=== PATIENT | female | born 1985 | race Caucasian/White ===

== ENCOUNTER 2016-02-21 14:30 | Inpatient (IN) | payer OTHER ==
[~2016-02-21] VITALS: Ht 172.7 cm; Wt 98.9 kg
[~2016-02-21 14:30] MED LIST: BACL10TA PO; CYM/30 PO; DICL1GEL34 EXT; DULO60CA44 PO; FLUC150T PO; FLUT0.15 NAE; FRS/40 PO; GABA800T PO; GLYC1TAB19 PO; IMT100 PO; LACT10SO17 PO; LEVO125T4 PO; NITR-5 PO; NITR1CAP16 PO; ONDA4TAB46 SL; PANT40TA PO; TAMS0.4C38 PO; TAPE50TA5 PO; TOPI100T20 PO; [UNRECOGNIZED DRUG - CODE] PO
[2016-02-21] MEDS ORDERED: ONDANSETRON INJ 2 MG/ML 2 ML VIAL IV STA (15:03)
[2016-02-21] MEDS ORDERED: SODIUM CHLORIDE 0.9% 1000ML 1,000 ML IV STA (15:03)
--- NOTE | 2016-02-21 15:30 | DIAGNOSTIC IMAGING REPORT ---
CHEST ONE VIEW PORTABLE CLINICAL HISTORY: Abdominal pain COMPARISON STUDY: 02/06/2016 FINDINGS: The cardiac and mediastinal contours are normal. There is no evidence of focal pulmonary consolidation. There is no evidence of failure. No pleural effusions are visualized.[ IMPRESSION: No active disease in the chest. Electronically signed by: Kapil Greenwood M.D. 02/21/2016 3:29 PM
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
[2016-02-21 16:03] LABS: BASO % 0.7 %; BASO ABS # 0.05 K/uL (0-0.2); COMPLETE YES; EOS % 0.6 %; HEMATOCRIT 41.2 % (37-47); IG% 0.1 %; LYMPH % 25.6 %; LYMPH ABS # 1.79 K/uL (1.2-3.4); MEAN CELL VOLUME 85.1 fL (80-100); MEAN CORPUSCULAR HEMOGLOBIN 29.3 pg (25-34); MEAN CORPUSCULAR HGB CONC 34.5 g/dl (32-36); MONO % 6.3 %; NEUT % 66.7 %; PLATELET COUNT 282 K/uL (130-400); RED BLOOD COUNT 4.84 M/uL (4.2-5.4); WHITE BLOOD COUNT 6.98 K/uL (4.8-10.8)
[2016-02-21 16:12] LABS: PARTIAL THROMBOPLASTIN RATIO 1.2; PROTHROMBIN TIME (PATIENT) 10.4 SECONDS (9.0-12.0)
[2016-02-21 16:24] LABS: URINE APPEARANCE CLEAR (CLEAR); URINE BILIRUBIN NEG (NEG); URINE COLOR YELLOW; URINE NITRITE NEG (NEG); URINE SPECIFIC GRAVITY 1.015 (1.000-1.030); UROBILINOGEN NEG (NEG); ZZURINE CULT IF INDIC CATH NO
[2016-02-21 16:27] LABS: MANUAL MICROSCOPIC REQUIRED? NO; REVIEW REQ? NO
[2016-02-21 16:28] LABS: PREG INTERNAL NEGATIVE QC NEG CLEAR BACKGROUND; PREG INTERNAL POSITIVE QC POS CONTROL LINE
[2016-02-21 16:31] LABS: ALKALINE PHOSPHATASE 67 U/L (45-117); ALT/SGPT 35 U/L (12-78); AST/SGOT 18 U/L (15-37); BLOOD UREA NITROGEN 9 mg/dl (7-18); BUN/CREATININE RATIO 14.1 (10-20); CARBON DIOXIDE 23 mmol/L (21-32); CHLORIDE 104 mmol/L (98-107); CKMB/CK RATIO 1.2 (0-3.0); CREATININE 0.61 mg/dl (0.60-1.20); GLUCOSE 87 mg/dl (70-99); POTASSIUM 3.7 mmol/L (3.5-5.1); SODIUM 139 mmol/L (136-145)
[2016-02-21] MEDS: ACETAMINOPHEN 500 MG TAB PO STA ×2 (16:52→16:55)
[2016-02-21 16:56] LABS: BENZODIAZEPINE, URINE NEG (NEG); COCAINE,URINE NEG (NEG); PHENCYCLIDINE, URINE NEG (NEG)
[2016-02-21 17:50] VITALS: O2SAT 100
[2016-02-21] MEDS ORDERED: ALUMINUM/MAGNESIUM SUSP 30 ML UDC PO PRN (20:00)
[2016-02-21] MEDS ORDERED: hydrOXYzine HCL 25 MG TAB PO PRN (20:00)
[2016-02-21] MEDS ORDERED: SODIUM CHLORIDE 0.65% NA SOLN 45 ML (OCEAN) PRN (20:00)
[2016-02-21] MEDS ORDERED: BISMUTH SUBSALICYLATE PER ML OMNICELL CHARGE PO PRN (20:00)
[2016-02-21] MEDS ORDERED: SUMATRIPTAN SUCC TAB 100 MG TAB PO PRN (20:00)
[2016-02-21] MEDS ORDERED: FUROSEMIDE 40 MG TAB PO PRN (20:00)
[2016-02-21] MEDS ORDERED: BENZTROPINE MESYLATE 0.5 MG TAB PO PRN (20:15)
[2016-02-21] MEDS ORDERED: LACTULOSE SYRUP 10 GM/15 ML BTL 473 ML PO PRN (20:26)
[2016-02-21 20:29] VITALS: BP 141/88; PULSE 89; TEMP 36.9; Ht 172.7 cm; Wt 98.9 kg
[2016-02-21] MEDS: DICLOFENAC SOD 1% GEL 100 GM TUBE EXT SCH (21:43)
[2016-02-21] MEDS: GLYCOPYRROLATE 1 MG TAB PO SCH (21:44)
[2016-02-21] MEDS: GABAPENTIN 800 MG TAB PO SCH (21:44)
[2016-02-21] MEDS: PANTOprazole SOD 40 MG TAB PO SCH (21:44)
[2016-02-21] MEDS: NITROFURANTOIN MONOHYDRATE 100 MG CAP PO SCH (21:44)
[2016-02-21] MEDS: TOPIRAMATE 100 MG TAB PO SCH (21:44)
[2016-02-21] MEDS: BACLOFEN 10 MG TAB PO SCH (21:44)
[2016-02-21] MEDS: TAPENTADOL HCL 50 MG TAB PO SCH (21:44)
[2016-02-22] MEDS: hydrOXYzine HCL 25 MG TAB PO PRN ×2 (01:09→01:43)
[2016-02-22 07:00] VITALS: BP_SYST 104; BP_SYST 105; BP_DIAS 67; BP_DIAS 75; PULSE 82; PULSE 86; TEMP 37
[2016-02-22] MEDS: LEVOTHYROXINE 125 MCG TAB PO SCH (07:14)
[2016-02-22] MEDS: PANTOprazole SOD 40 MG TAB PO SCH ×2 (07:15→21:09)
[2016-02-22] MEDS: DULOXETINE HCL 60 MG CAP PO SCH (07:15)
[2016-02-22] MEDS: TAMSULOSIN HCL 0.4 MG CAP PO SCH (07:15)
[2016-02-22] MEDS: GLYCOPYRROLATE 1 MG TAB PO SCH ×3 (07:15→21:10)
[2016-02-22] MEDS: BACLOFEN 10 MG TAB PO SCH ×3 (07:15→21:09)
[2016-02-22] MEDS: NITROFURANTOIN MONOHYDRATE 100 MG CAP PO SCH ×2 (07:15→21:09)
[2016-02-22] MEDS: GABAPENTIN 800 MG TAB PO SCH ×3 (07:15→21:09)
[2016-02-22] MEDS: TOPIRAMATE 100 MG TAB PO SCH ×2 (07:16→21:11)
[2016-02-22] MEDS: TAPENTADOL HCL 50 MG TAB PO SCH (07:17)
[2016-02-22] MEDS: FLUTICASONE PROPIONATE NA SPR 16 GM BTL NAE SCH (07:18)
[2016-02-22] MEDS: DICLOFENAC SOD 1% GEL 100 GM TUBE EXT SCH ×3 (07:18→21:07)
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
[2016-02-22] MEDS: HALOPERIDOL 5 MG TAB PO SCH (21:08)
[2016-02-22] MEDS: QUETIAPINE FUMARATE 25 MG TAB PO SCH (21:11)
[2016-02-23 07:12] VITALS: BP_SYST 100; BP_SYST 93; BP_DIAS 61; BP_DIAS 70; PULSE 60; PULSE 74; TEMP 36.7
[2016-02-23] MEDS: LEVOTHYROXINE 125 MCG TAB PO SCH (08:59)
[2016-02-23] MEDS: FLUTICASONE PROPIONATE NA SPR 16 GM BTL NAE SCH (09:00)
[2016-02-23] MEDS: DULOXETINE HCL 60 MG CAP PO SCH (09:00)
[2016-02-23] MEDS: DICLOFENAC SOD 1% GEL 100 GM TUBE EXT SCH ×3 (09:00→21:36)
[2016-02-23] MEDS: TAMSULOSIN HCL 0.4 MG CAP PO SCH (09:00)
[2016-02-23] MEDS: GLYCOPYRROLATE 1 MG TAB PO SCH ×3 (09:02→21:37)
[2016-02-23] MEDS: GABAPENTIN 800 MG TAB PO SCH ×3 (09:02→21:37)
[2016-02-23] MEDS: TOPIRAMATE 100 MG TAB PO SCH ×2 (09:02→21:37)
[2016-02-23] MEDS: HALOPERIDOL 5 MG TAB PO SCH ×2 (09:02→21:36)
[2016-02-23] MEDS: NITROFURANTOIN MONOHYDRATE 100 MG CAP PO SCH ×2 (09:02→21:37)
[2016-02-23] MEDS: PANTOprazole SOD 40 MG TAB PO SCH ×2 (09:02→21:36)
[2016-02-23] MEDS: BACLOFEN 10 MG TAB PO SCH ×3 (09:02→21:36)
--- NOTE | 2016-02-23 12:14 | Psychiatric Progress Notes ---
Progress Note Date of Service Feb 23, 2016. Interval History Joyce Almendarez is a 31 year old woman who has been hospitalized here many times previously - most recently November and December 2015. She was admitted on a voluntary basis with reports of auditory hallucinations of her father wanting her to come to [facility] with him. Chief Complaint "I need Nucynta for my back pain". Subjective Patient was seen & assessed interval progress reviewed with treatment team: Zhanna knocked on the door and asked for pain medication, specifically Nucynta. Explained that we are unable to provide this medication and asked her to try nonpharmacologic treatments for her pain. She did agree to try heat. She continues to endorse suicidality and that if she were not in the hospital she would attempt to kill herself. She was unable to explain how she would do this. She denies that she is hear voices today like she was before she came to the hospital and "signed in." She is poorly able to engage in conversation about her treatment and repeatedly asks for pain medication. Review of Systems Musculoskeletal: + problem reported (back pain) Sleep Information Total Hours of Sleep: 6.00 Meal Information Percent of Breakfast Consumed: 100 Percent of Lunch Consumed: 75 Percent of Dinner Consumed: 50 Mental Status Exam During interview pt is: cooperative Appearance: disheveled Eye contact is: fair Motor behavior is: steady gait & station Speech: other (soft and slow) Affect: blunted Mood is: depressed (3/10) Thought process: goal directed (on obtaining pain meds) Thought content: preoccupation Homicidal thoughts are: present Hallucinations: denies auditory, denies visual Cognition: memory grossly intact Intelligence estimated to be: average Insight: severely impaired Judgement: severely impaired Summary of Past History Patient supposed sees Dr. Hoffman for psychiatry but she can not tell me when she was last there. She does not currently have a therapist. 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 Most recent psychiatric hospitalization at [facility] in late January. She was discharged medically from [facility] on February 09 to [facility] for a mental health admission for aduitory hallucintaions of her father telling her not to eat, drink and to kill herself. Date of discharge is unknown but she did present to [facility] ER on February 14 for UTI. Impression IMPRESSION: A 31-year-old woman now admitted with depression with psychotic features, specifically auditory hallucinations of her father's voice telling her to come to [facility]. She has been having these delusions and hallucinations probably the better part of the last year and has clearly demonstrated that she is unable to function living independently. She is willing to receive assistance to try to find alternate housing arrangements and says that her rn case mgr is working on that and so we will need to be in touch with her to find out what has been done. Her sister sounds as if she is completely burned out at this point having told her sister not call her during this hospitalization. The patient has not been able to get any outpatient appointments and according to the prescription drug monitoring database, her prescriptions are not being managed by anybody in and she admits to obtain her medications from [facility]. At this point, I am going to discontinue her Nucynta and recommend she not be given any further pain medications that there is no one to manage it and she has demonstrated that she has abused these or overuse them as demonstrated by multiple ER visits in which she looks overmedicated. During her last hospitalization, we had her license revoked due to concerns that she was unsafe to drive. She is currently asking to see Dr. Morrison in order to have that restated which we do not recommend at this time. I will reorder her medications as per the discharge list from [facility] with the exception of the narcotics, which I will discontinue. She says she cannot afford to buy prescriptions. She clearly needs to be in a supervised living, although finding a situation immediately may be nearly impossible. We will inquire whether or not there is room at the local [facility] and work through her rn case mgr to make that referral. At this time, the patient requires inpatient mental health treatment due to the severity of her symptoms and her inability to function outside of a structured environment. Plan (1) Major depressive disorder with psychotic features A. Continue Cymbalta 90 mg daily. B. Continue Haldol 5 mg b.i.d. C. Q. 15 minute checks for safety. D. Reality orientation. E. Encourage participation in group and individual counseling. F. Attempt to establish a meeting with Radha swan to enlist her support finding alternate housing placement. G. Contact outpatient rn case mgr has been involved with her and possibly looking for alternate housing arrangements. Meeting scheduled 02/23 at 8 am. H. Coordinate care with Dr. Hoffman's office whom she says is her outpatient psychiatrist, although she has not seen him lately. (2) Chronic pain associated with significant psychosocial dysfunction A. Discontinue Nucynta as the patient has no one to follow this and inability to get any appointments. B. She has an outpatient appointment with [facility] pain management on March 14 which we hope that she will keep as that may be the person to manage her reports of pain, although it is unlikely she will get there without significant support. C. Encourage heat and ice p.r.n. D. Encourage walking and gentle exercising. (3) Hypothyroidism A. Labs within normal limits. B. Continue home dose of Synthroid. (4) GERD (gastroesophageal reflux disease) A. Continue home dose of Protonix. Discharge / Aftercare Planning Primary Care Physician: Name: Dr Burns at [facility] Psychiatrist: Name: Dr Hoffman Therapist: Name: pt did not follow up last time [employer] Drag Operator: Name: BRUNILDA Strauss Visit Code E&M Code: 66732 Risk Factors Assessment : Yes /single/: Yes Access to guns: No Health problems: Yes Mental Health Diagnoses: Yes Substance use disorders: Yes Family history of suicide: No Previous psychiatric stay: Yes Hopelessness: Yes Data Vital Signs Last 24 Hrs: Date Time Temp Pulse Resp B/P Pulse Ox O2 Delivery O2 Flow Rate FiO2 02/23/16 07:12 36.7 60 16 93/61 74 100/70 Meds Administered Last 24 Hrs: Meds Administered (Past 24Hrs) Medications (Trade) Dose Ordered Sig/Lisbet Route Start Time Stop Time Status Last Admin Dose Admin Sodium Chloride (Nss 1000ml) 1,000 ml @ 999 mls/hr Q1H1M STAT IV 02/21/16 15:03 02/21/16 16:03 DC 02/21/16 15:53 999 MLS/HR Ondansetron HCl (Zofran Inj) 4 mg NOW STAT IV 02/21/16 15:03 02/21/16 15:05 DC 02/21/16 15:53 4 MG Hydroxyzine HCl (Vistaril Tab) 50 mg HSZ PRN PO 02/21/16 20:00 03/22/16 19:59 02/22/16 01:43 50 MG Baclofen (Lioresal Tab) 10 mg TID PO 02/21/16 21:00 03/22/16 20:59 02/23/16 09:02 10 MG Diclofenac Sodium (Voltaren 1% Top Gel) 1 appln TID EXT 02/21/16 21:00 03/22/16 20:59 02/23/16 09:00 1 APPLN Duloxetine HCl (Cymbalta Cap) 120 mg DAILY PO 02/22/16 09:00 03/23/16 08:59 02/23/16 09:00 120 MG Fluticasone Propionate (Flonase Nasal [place]) 2 sprays DAILY JUSTINO 02/22/16 09:00 03/23/16 08:59 02/23/16 09:00 2 SPRAYS Gabapentin (Neurontin Tab) 800 mg TID PO 02/21/16 21:00 03/22/16 20:59 02/23/16 09:02 800 MG Glycopyrrolate (Robinul Tab) 1 mg TID PO 02/21/16 22:00 03/22/16 21:59 02/23/16 09:02 1 MG Levothyroxine Sodium (Synthroid Tab) 125 mcg DAILYBB PO 02/22/16 08:00 03/23/16 07:59 02/23/16 08:59 125 MCG Nitrofurantoin Macrocrystals (Macrobid Cap) 100 mg BID PO 02/21/16 22:00 03/02/16 21:59 02/23/16 09:02 100 MG Pantoprazole Sodium (Protonix Tab) 40 mg BID PO 02/21/16 21:00 03/22/16 20:59 02/23/16 09:02 40 MG Tamsulosin HCl (Flomax Cap) 0.8 mg DAILY PO 02/22/16 09:00 03/23/16 08:59 02/23/16 09:00 0.8 MG Tapentadol (Nucynta Tab) 50 mg Q12 PO 02/21/16 21:00 02/22/16 14:19 DC 02/22/16 07:17 50 MG Topiramate (Topamax Tab) 100 mg BID PO 02/21/16 22:00 03/22/16 21:59 02/23/16 09:02 100 MG Haloperidol (Haldol Tab) 5 mg BID PO 02/22/16 22:00 03/23/16 21:59 02/23/16 09:02 5 MG Quetiapine Fumarate (seroQUEL TAB) 50 mg HS PO 02/22/16 22:00 03/23/16 21:59 02/22/16 21:11 50 MG
[2016-02-23] MEDS: QUETIAPINE FUMARATE 25 MG TAB PO SCH (21:37)
[2016-02-24 07:02] VITALS: BP_SYST 111; BP_SYST 116; BP_DIAS 70; BP_DIAS 71; PULSE 68; PULSE 78; TEMP 36.8
[2016-02-24] MEDS: FLUTICASONE PROPIONATE NA SPR 16 GM BTL NAE SCH (08:28)
[2016-02-24] MEDS: LEVOTHYROXINE 125 MCG TAB PO SCH (08:28)
[2016-02-24] MEDS: NITROFURANTOIN MONOHYDRATE 100 MG CAP PO SCH ×2 (08:29→21:52)
[2016-02-24] MEDS: TAMSULOSIN HCL 0.4 MG CAP PO SCH (08:29)
[2016-02-24] MEDS: GABAPENTIN 800 MG TAB PO SCH ×3 (08:29→21:51)
[2016-02-24] MEDS: BACLOFEN 10 MG TAB PO SCH ×3 (08:29→21:52)
[2016-02-24] MEDS: DULOXETINE HCL 60 MG CAP PO SCH (08:29)
[2016-02-24] MEDS: GLYCOPYRROLATE 1 MG TAB PO SCH ×3 (08:30→21:51)
[2016-02-24] MEDS: PANTOprazole SOD 40 MG TAB PO SCH ×2 (08:30→21:51)
[2016-02-24] MEDS: TOPIRAMATE 100 MG TAB PO SCH ×2 (08:30→21:51)
[2016-02-24] MEDS: HALOPERIDOL 5 MG TAB PO SCH ×2 (08:33→21:51)
[2016-02-24] MEDS: DICLOFENAC SOD 1% GEL 100 GM TUBE EXT SCH ×3 (08:35→21:50)
--- NOTE | 2016-02-24 12:38 | Psychiatric Progress Notes ---
Progress Note Date of Service Feb 24, 2016. Interval History Joyce Almendarez is a 31 year old woman who has been hospitalized here many times previously - most recently November and December 2015. She was admitted on a voluntary basis with reports of auditory hallucinations of her father wanting [facility]. Chief Complaint "I can't go back to living by myself". Subjective Patient was seen & assessed interval progress reviewed with Treatment Team. She initially complained of back pain as I pointed out she wasn't attending group but was readily redirectible off of it. No new issues overnight, SW working to set up meeting with medical case manager and sister. Has been sleeping a lot , not interacting much with staff/copatients so likely underreporting delusions. She states anand have resolved with restarting her medication. Endorses depression. Review of Systems Psych: denies symptoms other than stated above Constitutional: pain as above Cardiovascular: denied GI: denied Neurologic: no specific complaint other than would like to see Dr. Prince gomez Remainder of 10 body systems also reviewed and denied other than noted above. Sleep Information Total Hours of Sleep: 9.00 Meal Information Percent of Breakfast Consumed: 100 Percent of Lunch Consumed: 100 Percent of Dinner Consumed: 0 Mental Status Exam During interview pt is: cooperative Appearance: appropriately groomed Eye contact is: fair Motor behavior is: steady gait & station, no abnormal motor movements Speech: other (soft and slow) Affect: blunted Mood is: depressed (3/10) Thought process: goal directed Thought content: preoccupation Suicidal thought are: denied Homicidal thoughts are: denied Hallucinations: denies auditory, denies visual Cognition: other (poor memory) Intelligence estimated to be: average Insight: impaired Judgement: impaired Summary of Past History Most recent psychiatric hospitalization at [facility] in late January. She was discharged medically from [facility] on February 09 to [facility] for a mental health admission for aduitory hallucintaions of her father telling her not to eat, drink and to kill herself. Date of discharge is unknown but she did present to [facility] ER on February 14 for UTI. Impression IMPRESSION as per admit note: A 31-year-old woman now admitted with depression with psychotic features, specifically auditory hallucinations of her father's voice telling [facility] to [facility]. She has been having these delusions and hallucinations probably the better part of the last year and has clearly demonstrated that she is unable to function living independently. She is willing to receive assistance to try to find alternate housing arrangements and says that her medical case manager is working on that and so we will need to be in touch with her to find out what has been done. Her sister sounds as if she is completely burned out at this point having told her sister not call her during this hospitalization. The patient has not been able to get any outpatient appointments and according to the prescription drug monitoring database, her prescriptions are not being managed by anybody in and she admits to obtain her medications from [facility]. At this point, I am going to discontinue her Nucynta and recommend she not be given any further pain medications that there is no one to manage it and she has demonstrated that she has abused these or overuse them as demonstrated by multiple ER visits in which she looks overmedicated. During her last hospitalization, we had her license revoked due to concerns that she was unsafe to drive. She is currently asking to see Dr. Morrison in order to have that restated which we do not recommend at this time. I will reorder her medications as per the discharge list from [facility] with the exception of the narcotics, which I will discontinue. She says she cannot afford to buy prescriptions. She clearly needs to be in a supervised living, although finding a situation immediately may be nearly impossible. We will inquire whether or not there is room at the local [facility] and work through her medical case manager to make that referral. At this time, the patient requires inpatient mental health treatment due to the severity of her symptoms and her inability to function outside of a structured environment. Plan (1) Major depressive disorder with psychotic features A. Continue Cymbalta 90 mg daily. B. Continue Haldol 5 mg b.i.d. C. Q. 15 minute checks for safety. D. Reality orientation. E. Encourage participation in group and individual counseling. F. Attempt to establish a meeting with Radha swan to enlist her support finding alternate housing placement. G. Contact outpatient medical case manager has been involved with her and possibly looking for alternate housing arrangements. Meeting scheduled 02/23 at 8 am. H. Coordinate care with Dr. Hoffman's office whom she says is her outpatient psychiatrist, although she has not seen him lately. 02/24/16: patient's psychosis is again improved with restart of Haldol, patient is agreeable to long acting injectable as recognizes med non-compliance has contributed to multiple admissions. Will order 100 mg Haldol IM today with plan to taper oral Haldol over next week Patient is also agreeable to nursing home referral. (2) Chronic pain associated with significant psychosocial dysfunction A. Discontinue Nucynta as the patient has no one to follow this and inability to get any appointments. B. She has an outpatient appointment with [facility] pain management on March 14 which we hope that she will keep as that may be the person to manage her reports of pain, although it is unlikely she will get there without significant support. C. Encourage heat and ice p.r.n. D. Encourage walking and gentle exercising. (3) Hypothyroidism A. Labs within normal limits. B. Continue home dose of Synthroid. (4) GERD (gastroesophageal reflux disease) A. Continue home dose of Protonix. Discharge / Aftercare Planning Primary Care Physician: Name: Dr Burns at [facility] Psychiatrist: Name: Dr Hoffman Therapist: Name: pt did not follow up last time Labor Delivery Rn: Name: BRUNILDA Strauss Visit Code E&M Code: 88197 Risk Factors Assessment : Yes /single/: Yes Access to guns: No Health problems: Yes Mental Health Diagnoses: Yes Substance use disorders: Yes Family history of suicide: No Previous psychiatric stay: Yes Hopelessness: Yes Data Vital Signs Last 24 Hrs: Date Time Temp Pulse Resp B/P Pulse Ox O2 Delivery O2 Flow Rate FiO2 02/24/16 07:02 36.8 68 16 116/70 78 111/71 Meds Administered Last 24 Hrs: Meds Administered (Past 24Hrs) Medications (Trade) Dose Ordered Sig/Lisbet Route Start Time Stop Time Status Last Admin Dose Admin Haloperidol (Haldol Tab) 5 mg BID PO 02/22/16 22:00 03/23/16 21:59 02/24/16 08:33 5 MG Quetiapine Fumarate (seroQUEL TAB) 50 mg HS PO 02/22/16 22:00 03/23/16 21:59 02/23/16 21:37 50 MG
[2016-02-24] MEDS ORDERED: HALOPERIDOL DECANOATE INJ 50 MG/ML VIAL IM ONE (13:15)
--- NOTE | 2016-02-24 13:26 | Psych Management Progress Note ---
Psychiatry Miscellaneous Date of Service: Feb 24, 2016. I have cared for patient sporadically over the course of mutliple hospital stays and her symptoms clearly respond to Haldol and it is generally well tolerated at 5 mg BID, Cogentin can be provided prn if any return of EPS during switch over, many of past symptoms more likely related to polypharm and resolving AMS than just side effects of Haldol. Patient has a history of repeatedly changing her mind re: med/changes depending on her pain level and seems most clinically appropriate to attempt conversion to IM while amenable. Any EPS would also impact speed of PO taper.
[2016-02-24] MEDS: QUETIAPINE FUMARATE 25 MG TAB PO SCH (21:51)
[2016-02-25 06:49] VITALS: BP_SYST 102; BP_SYST 104; BP_DIAS 69; BP_DIAS 71; PULSE 62; PULSE 93; TEMP 36.4
[2016-02-25] MEDS: LEVOTHYROXINE 125 MCG TAB PO SCH (08:27)
[2016-02-25] MEDS: DICLOFENAC SOD 1% GEL 100 GM TUBE EXT SCH ×3 (08:28→22:01)
[2016-02-25] MEDS: DULOXETINE HCL 60 MG CAP PO SCH (08:28)
[2016-02-25] MEDS: BACLOFEN 10 MG TAB PO SCH ×3 (08:29→21:58)
[2016-02-25] MEDS: TAMSULOSIN HCL 0.4 MG CAP PO SCH (08:29)
[2016-02-25] MEDS: TOPIRAMATE 100 MG TAB PO SCH ×2 (08:29→21:59)
[2016-02-25] MEDS: GLYCOPYRROLATE 1 MG TAB PO SCH ×3 (08:29→21:59)
[2016-02-25] MEDS: GABAPENTIN 800 MG TAB PO SCH ×3 (08:29→21:59)
[2016-02-25] MEDS: NITROFURANTOIN MONOHYDRATE 100 MG CAP PO SCH ×2 (08:29→21:59)
[2016-02-25] MEDS: PANTOprazole SOD 40 MG TAB PO SCH ×2 (08:29→21:59)
[2016-02-25] MEDS: HALOPERIDOL 5 MG TAB PO SCH ×2 (08:35→21:58)
[2016-02-25] MEDS: FLUTICASONE PROPIONATE NA SPR 16 GM BTL NAE SCH (08:40)
--- NOTE | 2016-02-25 13:06 | Psychiatric Progress Notes ---
Progress Note Date of Service Feb 25, 2016. Interval History Joyce Almendarez is a 31 year old woman who has been hospitalized here many times previously - most recently November and December 2015. She was admitted on a voluntary basis with reports of auditory hallucinations of her father wanting her to come to [facility] with him. Chief Complaint "I still hear my dad's voice". Subjective Patient was seen & assessed interval progress reviewed with nursing. Patient hasn't been reporting anand to staff and hasn't expressed delusions but when asked directly this am she does state that he still says he wants her to . She c/o depression, no active SI on unit but ongoing hopelessness due to pain and inability to care for self outside of the hospital. Repeatedly asks to resume Nucynta which was held on admission as historically med seeking and no clear outpatient provider. She tolerated Haldol decanoate. She did require assistance of nursing yesterday to cath for 800 cc. She denies symptoms that would suggest urinary retention today. Review of Systems pain as above, fatigue, inability to sit for groups due to pain but no evidence EPS/akathisia. Sleep Information Total Hours of Sleep: 7.00 Meal Information Percent of Breakfast Consumed: 100 Percent of Lunch Consumed: 100 Percent of Dinner Consumed: 100 Mental Status Exam During interview pt is: cooperative Appearance: appropriately groomed Eye contact is: fair Motor behavior is: steady gait & station, no abnormal motor movements Speech: other (soft and slow) Affect: blunted Mood is: depressed Thought process: goal directed Thought content: preoccupation Suicidal thought are: denied Homicidal thoughts are: denied Hallucinations: auditory, denies visual, other (did not appear to be responding to internal stimuli) Cognition: other (poor memory) Intelligence estimated to be: average Insight: impaired Judgement: impaired Summary of Past History Most recent psychiatric hospitalization at [facility] in late January. She was discharged medically from [facility] on February 09 to [facility] for a mental health admission for aduitory hallucintaions of her father telling her not to eat, drink and to kill herself. Date of discharge is unknown but she did present to [facility] ER on February 14 for UTI. Impression IMPRESSION as per admit note: A 31-year-old woman now admitted with depression with psychotic features, specifically auditory hallucinations of her father's voice telling her to come to [facility]. She has been having these delusions and hallucinations probably the better part of the last year and has clearly demonstrated that she is unable to function living independently. She is willing to receive assistance to try to find alternate housing arrangements and says that her case management assistant is working on that and so we will need to be in touch with her to find out what has been done. Her sister sounds as if she is completely burned out at this point having told her sister not call her during this hospitalization. The patient has not been able to get any outpatient appointments and according to the prescription drug monitoring database, her prescriptions are not being managed by anybody in and she admits to obtain her medications from [facility]. At this point, I am going to discontinue her Nucynta and recommend she not be given any further pain medications that there is no one to manage it and she has demonstrated that she has abused these or overuse them as demonstrated by multiple ER visits in which she looks overmedicated. During her last hospitalization, we had her license revoked due to concerns that she was unsafe to drive. She is currently asking to see Dr. Morrison in order to have that restated which we do not recommend at this time. I will reorder her medications as per the discharge list from [facility] with the exception of the narcotics, which I will discontinue. She says she cannot afford to buy prescriptions. She clearly needs to be in a supervised living, although finding a situation immediately may be nearly impossible. We will inquire whether or not there is room at the local [facility] and work through her case management assistant to make that referral. At this time, the patient requires inpatient mental health treatment due to the severity of her symptoms and her inability to function outside of a structured environment. Plan (1) Major depressive disorder with psychotic features A. Continue Cymbalta 90 mg daily. B. Continue Haldol 5 mg b.i.d. C. Q. 15 minute checks for safety. D. Reality orientation. E. Encourage participation in group and individual counseling. F. Attempt to establish a meeting with Radha swan to enlist her support finding alternate housing placement. G. Contact outpatient case management assistant has been involved with her and possibly looking for alternate housing arrangements. Meeting scheduled 02/23 at 8 am. H. Coordinate care with Dr. Hoffman's office whom she says is her outpatient psychiatrist, although she has not seen him lately. 02/24/16: patient's psychosis is again improved with restart of Haldol, patient is agreeable to long acting injectable as recognizes med non-compliance has contributed to multiple admissions. Will order 100 mg Haldol IM today with plan to taper oral Haldol over next week Patient is also agreeable to [facility] referral. (2) Chronic pain associated with significant psychosocial dysfunction A. Discontinue Nucynta as the patient has no one to follow this and inability to get any appointments. B. She has an outpatient appointment with [facility] pain management on March 14 which we hope that she will keep as that may be the person to manage her reports of pain, although it is unlikely she will get there without significant support. C. Encourage heat and ice p.r.n. D. Encourage walking and gentle exercising. 02/25/16--patient appears to be here for an extended stay due to inability to care for self due to her overall combo of mental health and physical condition issues. MD spoke with Dr. Morrison today as patient was requesting consult. Rereviewed challenges for this patient. He recognizes role for Nucynta given her objective pathology (surgical scarring and past nerve conduction studies) but it is not a medication he prescribes. Reviewed that treatment team here doesn't feel she can manage it at home outside of structured setting. Rereviewed pain management consult, only recommended agent, patient has exhausted other options to augment pain control and pain does appear to be increasing in last 24-48 hours and genuinely interfering with participation in programming. Will order 1 time dose under contract with patient. (3) Hypothyroidism A. Labs within normal limits. B. Continue home dose of Synthroid. (4) GERD (gastroesophageal reflux disease) A. Continue home dose of Protonix. Discharge / Aftercare Planning Primary Care Physician: Name: Dr Burns at [facility] Psychiatrist: Name: Dr Hoffman Therapist: Name: pt did not follow up last time Road Repairer: Name: BRUNILDA Strauss Visit Code E&M Code: 48420 Risk Factors Assessment : Yes /single/: Yes Access to guns: No Health problems: Yes Mental Health Diagnoses: Yes Substance use disorders: Yes Family history of suicide: No Previous psychiatric stay: Yes Hopelessness: Yes Data Vital Signs Last 24 Hrs: Date Time Temp Pulse Resp B/P Pulse Ox O2 Delivery O2 Flow Rate FiO2 02/25/16 06:49 36.4 62 18 104/69 93 102/71 Meds Administered Last 24 Hrs: Meds Administered (Past 24Hrs) Medications (Trade) Dose Ordered Sig/Lisbet Route Start Time Stop Time Status Last Admin Dose Admin Haloperidol Decanoate (Haldol Decanoate Inj) 100 mg 1315 ONCE IM 02/24/16 13:15 02/24/16 13:16 DC 02/24/16 13:15 100 MG
[2016-02-25] MEDS ORDERED: TAPENTADOL HCL 50 MG TAB PO ONE (13:30)
[2016-02-25] MEDS: QUETIAPINE FUMARATE 25 MG TAB PO SCH (21:59)
[2016-02-26 06:35] VITALS: BP_SYST 91; BP_SYST 94; BP_DIAS 59; BP_DIAS 63; PULSE 69; PULSE 82; TEMP 36.6
[2016-02-26] MEDS: LEVOTHYROXINE 125 MCG TAB PO SCH (08:34)
[2016-02-26] MEDS: DICLOFENAC SOD 1% GEL 100 GM TUBE EXT SCH ×3 (08:34→21:58)
[2016-02-26] MEDS: GLYCOPYRROLATE 1 MG TAB PO SCH ×3 (08:35→21:53)
[2016-02-26] MEDS: PANTOprazole SOD 40 MG TAB PO SCH ×2 (08:35→21:53)
[2016-02-26] MEDS: GABAPENTIN 800 MG TAB PO SCH ×3 (08:35→21:53)
[2016-02-26] MEDS: TOPIRAMATE 100 MG TAB PO SCH (08:35)
[2016-02-26] MEDS: TAMSULOSIN HCL 0.4 MG CAP PO SCH (08:35)
[2016-02-26] MEDS: NITROFURANTOIN MONOHYDRATE 100 MG CAP PO SCH ×2 (08:35→21:53)
[2016-02-26] MEDS: DULOXETINE HCL 60 MG CAP PO SCH (08:35)
[2016-02-26] MEDS: BACLOFEN 10 MG TAB PO SCH ×3 (08:35→21:53)
[2016-02-26] MEDS: HALOPERIDOL 5 MG TAB PO SCH (08:37)
[2016-02-26] MEDS: FLUTICASONE PROPIONATE NA SPR 16 GM BTL NAE SCH (08:40)
[2016-02-26] MEDS ORDERED: TAPENTADOL HCL 50 MG TAB PO ONE (10:15)
--- NOTE | 2016-02-26 11:28 | Psychiatric Progress Notes ---
Progress Note Date of Service Feb 26, 2016. Interval History Joyce Almendarez is a 31 year old woman who has been hospitalized here many times previously - most recently November and December 2015. She was admitted on a voluntary basis with reports of auditory hallucinations of her father wanting her to come to [facility] with him. Chief Complaint "I'm not much better". Subjective Patient was seen & assessed interval progress reviewed with nursing. took 25 mg of Nucynta yesterday after behavioral tawanda, less effective than 50 mg previously. She attended a few activities on day shift but didn't interact/ participate much in pm. Still c/o depression. Review of Systems Psych: denies symptoms other than stated above Constitutional: back pain Cardiovascular: denied GI: denied Neurologic: denied Sleep Information Total Hours of Sleep: 10.00 Meal Information Percent of Breakfast Consumed: 100 Percent of Lunch Consumed: 100 Percent of Dinner Consumed: 100 Mental Status Exam During interview pt is: cooperative Appearance: disheveled Eye contact is: fair Motor behavior is: steady gait & station, no abnormal motor movements Speech: other (soft and slow) Affect: blunted Mood is: depressed Thought process: clear, coherent Thought content: preoccupation Suicidal thought are: denied Homicidal thoughts are: denied Hallucinations: denies auditory, denies visual, other (did not appear to be responding to internal stimuli) Cognition: other (poor memory) Intelligence estimated to be: average Insight: impaired Judgement: impaired Summary of Past History Most recent psychiatric hospitalization at [facility] in late January. She was discharged medically from [facility] on February 09 to [facility] for a mental health admission for aduitory hallucintaions of her father telling her not to eat, drink and to kill herself. Date of discharge is unknown but she did present to [facility] ER on February 14 for UTI. Impression IMPRESSION as per admit note: A 31-year-old woman now admitted with depression with psychotic features, specifically auditory hallucinations of her father's voice telling her to come to [facility]. She has been having these delusions and hallucinations probably the better part of the last year and has clearly demonstrated that she is unable to function living independently. She is willing to receive assistance to try to find alternate housing arrangements and says that her showcase trimmer is working on that and so we will need to be in touch with her to find out what has been done. Her sister sounds as if she is completely burned out at this point having told her sister not call her during this hospitalization. The patient has not been able to get any outpatient appointments and according to the prescription drug monitoring database, her prescriptions are not being managed by anybody in and she admits to obtain her medications from [facility]. At this point, I am going to discontinue her Nucynta and recommend she not be given any further pain medications that there is no one to manage it and she has demonstrated that she has abused these or overuse them as demonstrated by multiple ER visits in which she looks overmedicated. During her last hospitalization, we had her license revoked due to concerns that she was unsafe to drive. She is currently asking to see Dr. Morrison in order to have that restated which we do not recommend at this time. I will reorder her medications as per the discharge list from [facility] with the exception of the narcotics, which I will discontinue. She says she cannot afford to buy prescriptions. She clearly needs to be in a supervised living, although finding a situation immediately may be nearly impossible. We will inquire whether or not there is room at the local [facility] and work through her showcase trimmer to make that referral. At this time, the patient requires inpatient mental health treatment due to the severity of her symptoms and her inability to function outside of a structured environment. Plan (1) Major depressive disorder with psychotic features A. Continue Cymbalta 90 mg daily. B. Continue Haldol 5 mg b.i.d. C. Q. 15 minute checks for safety. D. Reality orientation. E. Encourage participation in group and individual counseling. F. Attempt to establish a meeting with Radha swan to enlist her support finding alternate housing placement. G. Contact outpatient showcase trimmer has been involved with her and possibly looking for alternate housing arrangements. Meeting scheduled 02/23 at 8 am. H. Coordinate care with Dr. Hoffman's office whom she says is her outpatient psychiatrist, although she has not seen him lately. 02/24/16: patient's psychosis is again improved with restart of Haldol, patient is agreeable to long acting injectable as recognizes med non-compliance has contributed to multiple admissions. Will order 100 mg Haldol IM today with plan to taper oral Haldol over next week Patient is also agreeable to nursing home referral. (2) Chronic pain associated with significant psychosocial dysfunction A. Discontinue Nucynta as the patient has no one to follow this and inability to get any appointments. B. She has an outpatient appointment with [facility] pain management on March 14 which we hope that she will keep as that may be the person to manage her reports of pain, although it is unlikely she will get there without significant support. C. Encourage heat and ice p.r.n. D. Encourage walking and gentle exercising. 02/25/16--patient appears to be here for an extended stay due to inability to care for self due to her overall combo of mental health and physical condition issues. MD spoke with Dr. Morrison today as patient was requesting consult. Rereviewed challenges for this patient. He recognizes role for Nucynta given her objective pathology (surgical scarring and past nerve conduction studies) but it is not a medication he prescribes. Reviewed that treatment team here doesn't feel she can manage it at home outside of structured setting. Rereviewed pain management consult, only recommended agent, patient has exhausted other options to augment pain control and pain does appear to be increasing in last 24-48 hours and genuinely interfering with participation in programming. Will order 1 time dose under contract with patient. (3) Hypothyroidism A. Labs within normal limits. B. Continue home dose of Synthroid. (4) GERD (gastroesophageal reflux disease) A. Continue home dose of Protonix. Discharge / Aftercare Planning Primary Care Physician: Name: Dr Burns at [facility] Psychiatrist: Name: Dr Hoffman Therapist: Name: pt did not follow up last time Pole Peeling Machine Operator Helper: Name: BRUNILDA Strauss Visit Code E&M Code: 53813 Risk Factors Assessment : Yes /single/: Yes Access to guns: No Health problems: Yes Mental Health Diagnoses: Yes Substance use disorders: Yes Family history of suicide: No Previous psychiatric stay: Yes Hopelessness: Yes Data Vital Signs Last 24 Hrs: Date Time Temp Pulse Resp B/P Pulse Ox O2 Delivery O2 Flow Rate FiO2 02/26/16 06:35 36.6 69 16 91/59 82 94/63 Meds Administered Last 24 Hrs: Meds Administered (Past 24Hrs) Medications (Trade) Dose Ordered Sig/Lisbet Route Start Time Stop Time Status Last Admin Dose Admin Haloperidol Decanoate (Haldol Decanoate Inj) 100 mg 1315 ONCE IM 02/24/16 13:15 02/24/16 13:16 DC 02/24/16 13:15 100 MG Tapentadol (Nucynta Tab) 25 mg 1330 ONCE PO 02/25/16 13:30 02/25/16 13:31 DC 02/25/16 13:42 25 MG Tapentadol (Nucynta Tab) 50 mg 1015 ONCE PO 02/26/16 10:15 02/26/16 10:16 DC 02/26/16 10:24 50 MG
[2016-02-26] MEDS ORDERED: NURSING VERBAL MED ORDER ONE (20:30)
[2016-02-26] MEDS: QUETIAPINE FUMARATE 25 MG TAB PO SCH (21:53)
[2016-02-26] MEDS ORDERED: TOPIRAMATE 25 MG TAB PO ONE (22:00)
[2016-02-27 06:46] VITALS: BP_SYST 104; BP_SYST 115; BP_DIAS 69; BP_DIAS 77; PULSE 112; PULSE 68; TEMP 36.8
[2016-02-27] MEDS: LEVOTHYROXINE 125 MCG TAB PO SCH (08:20)
[2016-02-27] MEDS: DICLOFENAC SOD 1% GEL 100 GM TUBE EXT SCH ×3 (08:20→21:17)
[2016-02-27] MEDS: FLUTICASONE PROPIONATE NA SPR 16 GM BTL NAE SCH (08:21)
[2016-02-27] MEDS: TAMSULOSIN HCL 0.4 MG CAP PO SCH (08:21)
[2016-02-27] MEDS: BACLOFEN 10 MG TAB PO SCH ×3 (08:21→21:19)
[2016-02-27] MEDS: DULOXETINE HCL 60 MG CAP PO SCH (08:21)
[2016-02-27] MEDS: NITROFURANTOIN MONOHYDRATE 100 MG CAP PO SCH ×2 (08:22→21:18)
[2016-02-27] MEDS: GABAPENTIN 800 MG TAB PO SCH ×3 (08:22→21:18)
[2016-02-27] MEDS: PANTOprazole SOD 40 MG TAB PO SCH ×2 (08:22→21:18)
[2016-02-27] MEDS: GLYCOPYRROLATE 1 MG TAB PO SCH ×3 (08:22→21:18)
[2016-02-27] MEDS: HALOPERIDOL 5 MG TAB PO SCH (08:26)
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
[2016-02-27] MEDS: TOPIRAMATE 100 MG TAB PO SCH (21:17)
[2016-02-27] MEDS: QUETIAPINE FUMARATE 25 MG TAB PO SCH (21:17)
[2016-02-27] MEDS: hydrOXYzine HCL 25 MG TAB PO PRN (22:56)
[2016-02-28 07:01] VITALS: BP_SYST 88; BP_SYST 99; BP_DIAS 58; BP_DIAS 72; PULSE 67; PULSE 92; TEMP 36.8
[2016-02-28] MEDS: DICLOFENAC SOD 1% GEL 100 GM TUBE EXT SCH ×3 (08:23→21:27)
[2016-02-28] MEDS: HALOPERIDOL 5 MG TAB PO SCH (08:24)
[2016-02-28] MEDS: PANTOprazole SOD 40 MG TAB PO SCH ×2 (08:24→21:27)
[2016-02-28] MEDS: LEVOTHYROXINE 125 MCG TAB PO SCH (08:24)
[2016-02-28] MEDS: TAMSULOSIN HCL 0.4 MG CAP PO SCH (08:24)
[2016-02-28] MEDS: GABAPENTIN 800 MG TAB PO SCH ×3 (08:24→21:27)
[2016-02-28] MEDS: DULOXETINE HCL 60 MG CAP PO SCH (08:24)
[2016-02-28] MEDS: FLUTICASONE PROPIONATE NA SPR 16 GM BTL NAE SCH (08:24)
[2016-02-28] MEDS: BACLOFEN 10 MG TAB PO SCH ×3 (08:24→21:27)
[2016-02-28] MEDS: GLYCOPYRROLATE 1 MG TAB PO SCH ×3 (08:24→21:27)
[2016-02-28] MEDS: NITROFURANTOIN MONOHYDRATE 100 MG CAP PO SCH ×2 (08:24→21:27)
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
[2016-02-28] MEDS: ACETAMINOPHEN 325 MG TAB PO PRN (19:00)
[2016-02-28] MEDS: TOPIRAMATE 100 MG TAB PO SCH (21:27)
[2016-02-28] MEDS: QUETIAPINE FUMARATE 25 MG TAB PO SCH (21:28)
[2016-02-29 06:43] VITALS: BP_SYST 106; BP_SYST 94; BP_DIAS 65; BP_DIAS 69; PULSE 69; PULSE 93; TEMP 36.9
[2016-02-29] MEDS: FLUTICASONE PROPIONATE NA SPR 16 GM BTL NAE SCH (09:00)
[2016-02-29] MEDS: LEVOTHYROXINE 125 MCG TAB PO SCH (09:27)
[2016-02-29] MEDS: NITROFURANTOIN MONOHYDRATE 100 MG CAP PO SCH ×2 (09:28→21:37)
[2016-02-29] MEDS: GABAPENTIN 800 MG TAB PO SCH ×3 (09:28→21:37)
[2016-02-29] MEDS: DULOXETINE HCL 60 MG CAP PO SCH (09:28)
[2016-02-29] MEDS: BACLOFEN 10 MG TAB PO SCH ×3 (09:28→21:37)
[2016-02-29] MEDS: GLYCOPYRROLATE 1 MG TAB PO SCH ×3 (09:28→21:37)
[2016-02-29] MEDS: TAMSULOSIN HCL 0.4 MG CAP PO SCH (09:29)
[2016-02-29] MEDS: PANTOprazole SOD 40 MG TAB PO SCH ×2 (09:29→21:37)
[2016-02-29] MEDS: HALOPERIDOL 5 MG TAB PO SCH (09:30)
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
[2016-02-29] MEDS: ONDANSETRON 4 MG TAB PO PRN (09:42)
[2016-02-29] MEDS: DICLOFENAC SOD 1% GEL 100 GM TUBE EXT SCH ×3 (09:43→21:37)
[2016-02-29] MEDS: TOPIRAMATE 100 MG TAB PO SCH (21:37)
[2016-02-29] MEDS: QUETIAPINE FUMARATE 25 MG TAB PO SCH (21:37)
[2016-03-01 06:47] VITALS: BP_SYST 101; BP_SYST 93; BP_DIAS 62; BP_DIAS 69; PULSE 60; PULSE 85; TEMP 36.8
[2016-03-01] MEDS: FLUTICASONE PROPIONATE NA SPR 16 GM BTL NAE SCH (09:00)
[2016-03-01] MEDS: LEVOTHYROXINE 125 MCG TAB PO SCH (09:01)
[2016-03-01] MEDS: HALOPERIDOL 5 MG TAB PO SCH (09:01)
[2016-03-01] MEDS: DULOXETINE HCL 60 MG CAP PO SCH (09:03)
[2016-03-01] MEDS: DICLOFENAC SOD 1% GEL 100 GM TUBE EXT SCH ×3 (09:03→21:23)
[2016-03-01] MEDS: GABAPENTIN 800 MG TAB PO SCH ×3 (09:04→21:24)
[2016-03-01] MEDS: NITROFURANTOIN MONOHYDRATE 100 MG CAP PO SCH ×2 (09:04→21:24)
[2016-03-01] MEDS: GLYCOPYRROLATE 1 MG TAB PO SCH ×3 (09:04→21:24)
[2016-03-01] MEDS: TAMSULOSIN HCL 0.4 MG CAP PO SCH (09:04)
[2016-03-01] MEDS: PANTOprazole SOD 40 MG TAB PO SCH ×2 (09:04→21:24)
[2016-03-01] MEDS: BACLOFEN 10 MG TAB PO SCH ×3 (09:04→21:23)
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
[2016-03-01] MEDS ORDERED: MELOXICAM 7.5 MG TAB PO ONE (12:14)
[2016-03-01] MEDS: QUETIAPINE FUMARATE 25 MG TAB PO SCH (21:24)
[2016-03-01] MEDS: TOPIRAMATE 100 MG TAB PO SCH (21:25)
[2016-03-02 06:39] VITALS: BP_SYST 103; BP_SYST 99; BP_DIAS 67; BP_DIAS 73; PULSE 72; PULSE 95; TEMP 36.8
[2016-03-02] MEDS: LEVOTHYROXINE 125 MCG TAB PO SCH (07:57)
[2016-03-02] MEDS: NITROFURANTOIN MONOHYDRATE 100 MG CAP PO SCH ×2 (07:58→21:24)
[2016-03-02] MEDS: DULOXETINE HCL 60 MG CAP PO SCH (07:58)
[2016-03-02] MEDS: MELOXICAM 7.5 MG TAB PO SCH (07:58)
[2016-03-02] MEDS: TAMSULOSIN HCL 0.4 MG CAP PO SCH (07:58)
[2016-03-02] MEDS: BACLOFEN 10 MG TAB PO SCH ×3 (07:58→21:24)
[2016-03-02] MEDS: PANTOprazole SOD 40 MG TAB PO SCH ×2 (07:59→21:24)
[2016-03-02] MEDS: GABAPENTIN 800 MG TAB PO SCH ×3 (07:59→21:24)
[2016-03-02] MEDS: GLYCOPYRROLATE 1 MG TAB PO SCH ×3 (07:59→21:24)
[2016-03-02] MEDS: FLUTICASONE PROPIONATE NA SPR 16 GM BTL NAE SCH (08:04)
[2016-03-02] MEDS: DICLOFENAC SOD 1% GEL 100 GM TUBE EXT SCH ×3 (08:04→21:23)
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
[2016-03-02] MEDS ORDERED: BuPROPion SR 100 MG TABCR PO ONE (13:00)
[2016-03-02] MEDS: QUETIAPINE FUMARATE 25 MG TAB PO SCH (21:24)
[2016-03-02] MEDS: TOPIRAMATE 50 MG TAB PO SCH (21:24)
[2016-03-03 07:09] VITALS: BP_SYST 104; BP_SYST 112; BP_DIAS 71; BP_DIAS 78; PULSE 59; PULSE 74; TEMP 36.5
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
[2016-03-03] MEDS: LEVOTHYROXINE 125 MCG TAB PO SCH (08:12)
[2016-03-03] MEDS: FLUTICASONE PROPIONATE NA SPR 16 GM BTL NAE SCH (09:17)
[2016-03-03] MEDS: BuPROPion SR 100 MG TABCR PO SCH (09:18)
[2016-03-03] MEDS: GABAPENTIN 800 MG TAB PO SCH ×3 (09:18→21:22)
[2016-03-03] MEDS: PANTOprazole SOD 40 MG TAB PO SCH ×2 (09:18→21:22)
[2016-03-03] MEDS: DULOXETINE HCL 60 MG CAP PO SCH (09:18)
[2016-03-03] MEDS: MELOXICAM 7.5 MG TAB PO SCH (09:18)
[2016-03-03] MEDS: GLYCOPYRROLATE 1 MG TAB PO SCH ×3 (09:18→21:22)
[2016-03-03] MEDS: NITROFURANTOIN MONOHYDRATE 100 MG CAP PO SCH ×2 (09:18→21:22)
[2016-03-03] MEDS: TAMSULOSIN HCL 0.4 MG CAP PO SCH (09:18)
[2016-03-03] MEDS: BACLOFEN 10 MG TAB PO SCH ×3 (09:18→21:22)
[2016-03-03] MEDS: DICLOFENAC SOD 1% GEL 100 GM TUBE EXT SCH ×3 (09:19→21:22)
[2016-03-03] MEDS: QUETIAPINE FUMARATE 25 MG TAB PO SCH (21:22)
[2016-03-03] MEDS: TOPIRAMATE 50 MG TAB PO SCH (21:22)
[2016-03-04 06:51] VITALS: BP_SYST 110; BP_SYST 111; BP_DIAS 71; BP_DIAS 77; PULSE 59; PULSE 84; TEMP 36.3
[2016-03-04] MEDS: LEVOTHYROXINE 125 MCG TAB PO SCH (07:57)
[2016-03-04] MEDS: FLUTICASONE PROPIONATE NA SPR 16 GM BTL NAE SCH (09:23)
[2016-03-04] MEDS: DULOXETINE HCL 60 MG CAP PO SCH (09:23)
[2016-03-04] MEDS: TAMSULOSIN HCL 0.4 MG CAP PO SCH (09:24)
[2016-03-04] MEDS: BACLOFEN 10 MG TAB PO SCH ×3 (09:24→21:57)
[2016-03-04] MEDS: NITROFURANTOIN MONOHYDRATE 100 MG CAP PO SCH ×2 (09:24→21:57)
[2016-03-04] MEDS: MELOXICAM 7.5 MG TAB PO SCH (09:24)
[2016-03-04] MEDS: PANTOprazole SOD 40 MG TAB PO SCH ×2 (09:25→21:57)
[2016-03-04] MEDS: GLYCOPYRROLATE 1 MG TAB PO SCH ×3 (09:25→21:58)
[2016-03-04] MEDS: BuPROPion SR 100 MG TABCR PO SCH (09:25)
[2016-03-04] MEDS: GABAPENTIN 800 MG TAB PO SCH ×3 (09:25→21:57)
[2016-03-04] MEDS: DICLOFENAC SOD 1% GEL 100 GM TUBE EXT SCH ×3 (09:26→21:56)
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
[2016-03-04] MEDS: QUETIAPINE FUMARATE 25 MG TAB PO SCH (21:59)
[2016-03-05 06:58] VITALS: BP_SYST 105; BP_SYST 117; BP_DIAS 66; BP_DIAS 83; PULSE 80; PULSE 89; TEMP 36.6
[2016-03-05] MEDS: LEVOTHYROXINE 125 MCG TAB PO SCH (08:46)
[2016-03-05] MEDS: FLUTICASONE PROPIONATE NA SPR 16 GM BTL NAE SCH (09:30)
[2016-03-05] MEDS: DICLOFENAC SOD 1% GEL 100 GM TUBE EXT SCH ×3 (09:30→22:05)
[2016-03-05] MEDS: BACLOFEN 10 MG TAB PO SCH ×3 (09:33→22:06)
[2016-03-05] MEDS: TAMSULOSIN HCL 0.4 MG CAP PO SCH (09:33)
[2016-03-05] MEDS: DULOXETINE HCL 60 MG CAP PO SCH (09:33)
[2016-03-05] MEDS: BuPROPion SR 100 MG TABCR PO SCH (09:34)
[2016-03-05] MEDS: NITROFURANTOIN MONOHYDRATE 100 MG CAP PO SCH (09:34)
[2016-03-05] MEDS: MELOXICAM 7.5 MG TAB PO SCH (09:34)
[2016-03-05] MEDS: PANTOprazole SOD 40 MG TAB PO SCH ×2 (09:34→22:06)
[2016-03-05] MEDS: GABAPENTIN 800 MG TAB PO SCH ×3 (09:34→22:06)
[2016-03-05] MEDS: GLYCOPYRROLATE 1 MG TAB PO SCH ×3 (09:34→22:06)
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
[2016-03-05] MEDS: QUETIAPINE FUMARATE 25 MG TAB PO SCH (22:06)
[2016-03-06 06:47] VITALS: BP_SYST 106; BP_SYST 112; BP_DIAS 72; BP_DIAS 76; PULSE 112; PULSE 75; TEMP 36.6
[2016-03-06] MEDS: FLUTICASONE PROPIONATE NA SPR 16 GM BTL NAE SCH (09:00)
[2016-03-06] MEDS: LEVOTHYROXINE 125 MCG TAB PO SCH (09:27)
[2016-03-06] MEDS: BuPROPion SR 100 MG TABCR PO SCH (09:27)
[2016-03-06] MEDS: GABAPENTIN 800 MG TAB PO SCH (09:27)
[2016-03-06] MEDS: BACLOFEN 10 MG TAB PO SCH ×3 (09:27→22:00)
[2016-03-06] MEDS: DICLOFENAC SOD 1% GEL 100 GM TUBE EXT SCH ×3 (09:27→22:00)
[2016-03-06] MEDS: TAMSULOSIN HCL 0.4 MG CAP PO SCH (09:27)
[2016-03-06] MEDS: MELOXICAM 7.5 MG TAB PO SCH (09:27)
[2016-03-06] MEDS: DULOXETINE HCL 60 MG CAP PO SCH (09:27)
[2016-03-06] MEDS: PANTOprazole SOD 40 MG TAB PO SCH ×2 (09:27→22:00)
[2016-03-06] MEDS: GLYCOPYRROLATE 1 MG TAB PO SCH ×3 (09:27→22:00)
[2016-03-06 09:34] VITALS: BP 126/91; PULSE 80
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
[2016-03-06] MEDS: GABAPENTIN 100 MG CAP PO SCH ×2 (14:18→22:00)
[2016-03-06] MEDS: GABAPENTIN 400 MG CAP PO SCH ×2 (14:18→22:00)
[2016-03-06] MEDS: QUETIAPINE FUMARATE 25 MG TAB PO SCH (22:00)
[2016-03-07 06:53] VITALS: BP_SYST 113; BP_SYST 118; BP_DIAS 76; BP_DIAS 85; PULSE 83; PULSE 95; TEMP 36.5
[2016-03-07] MEDS: LEVOTHYROXINE 125 MCG TAB PO SCH ×2 (08:00→11:17)
[2016-03-07] MEDS: DULOXETINE HCL 60 MG CAP PO SCH ×2 (09:00→11:17)
[2016-03-07] MEDS: DICLOFENAC SOD 1% GEL 100 GM TUBE EXT SCH ×3 (09:00→21:25)
[2016-03-07] MEDS: BuPROPion SR 150 MG TABCR PO SCH ×2 (09:00→11:18)
[2016-03-07] MEDS: FLUTICASONE PROPIONATE NA SPR 16 GM BTL NAE SCH (09:00)
[2016-03-07] MEDS: GABAPENTIN 400 MG CAP PO SCH ×4 (09:00→21:25)
[2016-03-07] MEDS: GABAPENTIN 100 MG CAP PO SCH ×4 (09:00→21:25)
[2016-03-07] MEDS: PANTOprazole SOD 40 MG TAB PO SCH ×3 (09:00→21:26)
[2016-03-07] MEDS: MELOXICAM 7.5 MG TAB PO SCH ×2 (09:00→11:18)
[2016-03-07] MEDS: TAMSULOSIN HCL 0.4 MG CAP PO SCH ×2 (09:00→11:17)
[2016-03-07] MEDS: GLYCOPYRROLATE 1 MG TAB PO SCH ×4 (09:00→21:26)
[2016-03-07] MEDS: BACLOFEN 10 MG TAB PO SCH ×4 (09:00→21:25)
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
[2016-03-07] MEDS: ONDANSETRON 4 MG TAB PO PRN (11:35)
[2016-03-07 12:17] LABS: BUN/CREATININE RATIO 27.2 (10-20); CALCIUM 9.1 mg/dl (8.5-10.1); CREATININE 0.68 mg/dl (0.60-1.20); POTASSIUM 3.5 mmol/L (3.5-5.1)
[2016-03-07 12:19] LABS: ALB/GLOB RATIO 1.1 (0.9-2)
[2016-03-07] MEDS: HALOPERIDOL 5 MG TAB PO PRN (17:37)
[2016-03-07 20:36] VITALS: BP 128/80; PULSE 115; PULSE 124
[2016-03-07 21:23] VITALS: BP 142/97; PULSE 115
[2016-03-07] MEDS ORDERED: PALIPERIDONE 3 MG TABCR PO SCH (22:00)
[2016-03-08 07:06] VITALS: BP_SYST 129; BP_DIAS 80; BP_DIAS 88; PULSE 110; PULSE 122; TEMP 36.6
[2016-03-08] MEDS: LEVOTHYROXINE 125 MCG TAB PO SCH (08:00)
[2016-03-08] MEDS: BACLOFEN 10 MG TAB PO SCH ×3 (09:00→21:42)
[2016-03-08] MEDS: FLUTICASONE PROPIONATE NA SPR 16 GM BTL NAE SCH (09:00)
[2016-03-08] MEDS: GABAPENTIN 400 MG CAP PO SCH ×3 (09:00→21:43)
[2016-03-08] MEDS: DULOXETINE HCL 60 MG CAP PO SCH (09:00)
[2016-03-08] MEDS: MELOXICAM 7.5 MG TAB PO SCH (09:00)
[2016-03-08] MEDS: BuPROPion SR 150 MG TABCR PO SCH (09:00)
[2016-03-08] MEDS: GABAPENTIN 100 MG CAP PO SCH ×3 (09:00→21:42)
[2016-03-08] MEDS: PANTOprazole SOD 40 MG TAB PO SCH ×2 (09:00→21:44)
[2016-03-08] MEDS: DICLOFENAC SOD 1% GEL 100 GM TUBE EXT SCH ×3 (09:00→21:41)
[2016-03-08] MEDS: TAMSULOSIN HCL 0.4 MG CAP PO SCH (09:00)
[2016-03-08] MEDS: GLYCOPYRROLATE 1 MG TAB PO SCH ×3 (09:00→21:44)
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
[2016-03-08] MEDS: HALOPERIDOL 5 MG TAB PO PRN (14:57)
[2016-03-08 15:35] VITALS: BP 136/94; PULSE 98; TEMP 36.7
[2016-03-08 16:18] VITALS: BP 136/94; PULSE 122; PULSE 98; TEMP 36.7
[2016-03-08] MEDS: PALIPERIDONE 3 MG TABCR PO SCH (21:42)
[2016-03-08 21:48] VITALS: BP 125/88; PULSE 108
[2016-03-09 08:13] VITALS: BP_SYST 117; BP_SYST 123; BP_DIAS 76; BP_DIAS 77; PULSE 97; TEMP 36.6
[2016-03-09] MEDS: FLUTICASONE PROPIONATE NA SPR 16 GM BTL NAE SCH (09:00)
[2016-03-09] MEDS: DICLOFENAC SOD 1% GEL 100 GM TUBE EXT SCH ×3 (09:00→22:04)
[2016-03-09] MEDS ORDERED: PALIPERIDONE 3 MG TABCR PO ONE (09:15)
[2016-03-09] MEDS: LEVOTHYROXINE 125 MCG TAB PO SCH (10:12)
[2016-03-09] MEDS: DULOXETINE HCL 60 MG CAP PO SCH (10:12)
[2016-03-09] MEDS: MELOXICAM 7.5 MG TAB PO SCH (10:13)
[2016-03-09] MEDS: GABAPENTIN 400 MG CAP PO SCH ×2 (10:13→14:11)
[2016-03-09] MEDS: TAMSULOSIN HCL 0.4 MG CAP PO SCH (10:13)
[2016-03-09] MEDS: BACLOFEN 10 MG TAB PO SCH ×3 (10:13→22:05)
[2016-03-09] MEDS: GABAPENTIN 100 MG CAP PO SCH ×2 (10:13→14:11)
[2016-03-09] MEDS: PANTOprazole SOD 40 MG TAB PO SCH ×2 (10:14→22:05)
[2016-03-09] MEDS: GLYCOPYRROLATE 1 MG TAB PO SCH ×3 (10:14→22:05)
[2016-03-09] MEDS: BuPROPion SR 150 MG TABCR PO SCH (10:14)
[2016-03-09] MEDS ORDERED: CLONAZEPAM 1 MG TAB PO ONE (12:50)
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
[2016-03-09 14:07] VITALS: BP 145/96; PULSE 117; PULSE 118; TEMP 36.7
[2016-03-09] MEDS ORDERED: NURSING VERBAL MED ORDER ONE (21:15)
[2016-03-09] MEDS ORDERED: GABAPENTIN PO SCH ×2 (22:00)
[2016-03-09] MEDS: PALIPERIDONE 3 MG TABCR PO SCH (22:04)
[2016-03-09 23:00] VITALS: BP 124/87; PULSE 86
[2016-03-10 07:02] VITALS: BP_SYST 133; BP_SYST 139; BP_DIAS 80; BP_DIAS 82; PULSE 115; PULSE 126; TEMP 36.7
[2016-03-10] MEDS: FLUTICASONE PROPIONATE NA SPR 16 GM BTL NAE SCH (09:00)
[2016-03-10] MEDS: DICLOFENAC SOD 1% GEL 100 GM TUBE EXT SCH ×3 (09:00→23:06)
[2016-03-10] MEDS: LEVOTHYROXINE 125 MCG TAB PO SCH (10:02)
[2016-03-10] MEDS: TAMSULOSIN HCL 0.4 MG CAP PO SCH (10:03)
[2016-03-10] MEDS: CLONAZEPAM 1 MG TAB PO SCH ×2 (10:03→22:57)
[2016-03-10] MEDS: BACLOFEN 10 MG TAB PO SCH ×3 (10:03→22:57)
[2016-03-10] MEDS: DULOXETINE HCL 60 MG CAP PO SCH (10:03)
[2016-03-10] MEDS: MELOXICAM 7.5 MG TAB PO SCH (10:04)
[2016-03-10] MEDS: GABAPENTIN 100 MG CAP PO SCH ×3 (10:04→22:58)
[2016-03-10] MEDS: GABAPENTIN 400 MG CAP PO SCH ×3 (10:05→22:57)
[2016-03-10] MEDS: PANTOprazole SOD 40 MG TAB PO SCH ×2 (10:05→22:58)
[2016-03-10] MEDS: BuPROPion SR 100 MG TABCR PO SCH (10:05)
[2016-03-10] MEDS: GLYCOPYRROLATE 1 MG TAB PO SCH ×3 (10:05→22:58)
[2016-03-10 14:55] VITALS: BP 133/88; PULSE 131
[2016-03-10 15:54] LABS: HEMATOCRIT 39.7 % (37-47); MEAN CELL VOLUME 85.9 fL (80-100); MEAN CORPUSCULAR HEMOGLOBIN 29.2 pg (25-34); PLATELET COUNT 220 K/uL (130-400); RED BLOOD COUNT 4.62 M/uL (4.2-5.4); WHITE BLOOD COUNT 8.24 K/uL (4.8-10.8)
[2016-03-10 16:53] LABS: ALKALINE PHOSPHATASE 66 U/L (45-117); ALT/SGPT 22 U/L (12-78); BLOOD UREA NITROGEN 13 mg/dl (7-18); BUN/CREATININE RATIO 17.6 (10-20); CALCIUM 8.4 mg/dl (8.5-10.1); CARBON DIOXIDE 25 mmol/L (21-32); CHLORIDE 109 mmol/L (98-107); CREATININE 0.72 mg/dl (0.60-1.20); GLUCOSE 105 mg/dl (70-99); SODIUM 144 mmol/L (136-145)
--- NOTE | 2016-03-10 18:17 | Medical Consult ---
Consultation Date of Consultation: Mar 10, 2016. Attending Physician: Patrica Iqbal MD Reason for Consultation: R wrist pain History of Present Illness 31 y/o F c/o R wrist pain. Pt states it started about 2 days ago and is getting worse. She had pain over her R dorsal aspect of her hand and wrist. She has numbness/tingling as well. She cannot move it, but pt cannot really tell me if this is due to pain or maribell inability to move her hand. Denies trauma to this area recently or remotely. She feels her b/l toes 1st and 2nd are numb/tingling as well, which just started in the last few hours. Pt has back pain at baseline and feels she is having worsening back pain to her mid back. Per nursing, pt has been requesting to go to the medical floor for various reasons over the last few days and she stopped eating/drinking when she was told that she could not. She also refused to interact with them yesterday because of this. Pt denies fever, SOB, chest pain, abd pain, n/v/c/d, LE swelling. ROS as noted above, otherwise neg. Past Medical/Surgical History Medical Problems: (1) Anterior chest wall pain Status: Acute (2) Chronic back pain Status: Acute (3) Chronic pain Status: Acute (4) Dehydration Status: Acute (5) Dehydration Status: Acute (6) Delusional disorder Status: Acute (7) Depression Status: Chronic (8) Epigastric abdominal pain Status: Acute (9) Fall Status: Acute (10) Fall Status: Acute (11) Fall Status: Acute (12) Generalized weakness Status: Acute (13) Hallucinations Status: Acute (14) Head injury Status: Acute (15) History of medication noncompliance Status: Chronic (16) Hypokalemia Status: Acute (17) Hypomagnesemia Status: Acute (18) Left sided chest pain Status: Acute (19) Lethargy Status: Acute (20) Mood disorder Status: Acute (21) Multiple drug overdose Status: Acute (22) Narcotic overdose Status: Acute (23) Nausea Status: Acute (24) Neck pain Status: Acute (25) Neck pain Status: Acute (26) Syncope Status: Acute (27) Urinary tract infection Status: Acute (28) Urinary tract infection Status: Acute (29) Vomiting Status: Acute Family History Family history was reviewed; no changes noted. Social History Smoking Status: Never Smoker Drug Use: none Marital Status: single Housing Status: lives alone Occupation Status: unemployed, disabled Allergies Coded Allergies: Erythromycin (Verified Allergy, Mild, 02/21/16) Cephalexin (Verified Allergy, Unknown, ., 02/21/16) Penicillins (Verified Allergy, Unknown, ., 02/21/16) Sulfa Antibiotics (Verified Allergy, Unknown, ., 02/21/16) Current Inpatient Medications Current Inpatient Medications Medications (Trade) Dose Ordered Sig/Lisbet Route Start Time Stop Time Status Last Admin Dose Admin Acetaminophen (Tylenol Tab) 650 mg Q4H PRN PO 02/21/16 20:00 03/22/16 19:59 02/28/16 19:00 650 MG Bismuth Subsalicylate (Kaopectate Liqd) 15 ml PRN PRN PO 02/21/16 20:00 03/22/16 19:59 Al Hydroxide/Mg Hydroxide (Maalox Susp) 30 ml Q4H PRN PO 02/21/16 20:00 03/22/16 19:59 Magnesium Hydroxide (Milk Of Magnesia Susp) 30 ml DAILY PRN PO 02/21/16 20:00 03/22/16 19:59 Sodium Chloride ([place] Nasal [place]) PRN PRN NA 02/21/16 20:00 03/22/16 19:59 Hydroxyzine HCl (Vistaril Tab) 50 mg HSZ PRN PO 02/21/16 20:00 03/22/16 19:59 02/27/16 22:56 50 MG Hydroxyzine HCl (Vistaril Tab) 25 mg Q4H PRN PO 02/21/16 20:00 03/22/16 19:59 Baclofen (Lioresal Tab) 10 mg TID PO 02/21/16 21:00 03/22/16 20:59 03/10/16 14:15 10 MG Diclofenac Sodium (Voltaren 1% Top Gel) 1 appln TID EXT 02/21/16 21:00 03/22/16 20:59 03/10/16 14:13 1 APPLN Duloxetine HCl (Cymbalta Cap) 120 mg DAILY PO 02/22/16 09:00 03/23/16 08:59 03/10/16 10:03 120 MG Miscellaneous Information (Order Awaiting Action) 1 ea DAILY N/A 02/22/16 09:00 03/23/16 08:59 Fluticasone Propionate (Flonase Nasal [place]) 2 sprays DAILY JUSTINO 02/22/16 09:00 03/23/16 08:59 03/05/16 09:30 2 SPRAYS Furosemide (Lasix tab) 40 mg DAILY PRN PO 02/21/16 20:00 03/22/16 19:59 Glycopyrrolate (Robinul Tab) 1 mg TID PO 02/21/16 22:00 03/22/16 21:59 03/10/16 14:16 1 MG Lactulose (Chronulac Syrup) 50 gm QID PRN PO 02/21/16 20:26 03/22/16 20:25 Levothyroxine Sodium (Synthroid Tab) 125 mcg DAILYBB PO 02/22/16 08:00 03/23/16 07:59 03/10/16 10:02 125 MCG Ondansetron HCl (Zofran Tab) 4 mg Q6HWA PRN PO 02/21/16 20:00 03/22/16 19:59 03/07/16 11:35 4 MG Pantoprazole Sodium (Protonix Tab) 40 mg BID PO 02/21/16 21:00 03/22/16 20:59 03/10/16 10:05 40 MG Sumatriptan Succinate (Imitrex Tab) 100 mg DAILY PRN PO 02/21/16 20:00 03/22/16 19:59 Tamsulosin HCl (Flomax Cap) 0.8 mg DAILY PO 02/22/16 09:00 03/23/16 08:59 03/10/16 10:03 0.8 MG Miscellaneous Information (Order Awaiting Action) 1 ea QS N/A 02/22/16 00:00 03/23/16 00:00 Haloperidol (Haldol Tab) 5 mg Q6H PRN PO 02/21/16 20:15 03/22/16 20:14 03/08/16 14:57 5 MG Benztropine Mesylate (Cogentin Tab) 0.5 mg Q6H PRN PO 02/21/16 20:15 03/22/16 20:14 Meloxicam (Mobic Tab) 7.5 mg QAM PO 03/02/16 09:00 04/01/16 08:59 03/10/16 10:04 7.5 MG Gabapentin (Neurontin Cap) 800 mg TID PO 03/06/16 14:00 04/05/16 13:59 Future hold 03/10/16 14:16 800 MG Gabapentin (Neurontin Cap) 200 mg TID PO 03/06/16 14:00 04/05/16 13:59 Future hold 03/10/16 14:15 200 MG Paliperidone (Invega) 6 mg HS PO 03/08/16 22:00 04/07/16 21:59 03/09/16 22:04 6 MG Bupropion HCl (Wellbutrin-Sr Tab) 100 mg QAM PO 03/10/16 09:00 04/09/16 08:59 03/10/16 10:05 100 MG Clonazepam (Klonopin Tab) 1 mg BID PO 03/09/16 22:00 04/08/16 21:59 Future hold 03/10/16 10:03 1 MG Physical Exam Date Time Temp Pulse Resp B/P Pulse Ox O2 Delivery O2 Flow Rate FiO2 03/10/16 14:55 131 133/88 03/10/16 07:02 36.7 115 18 133/80 126 139/82 03/09/16 23:00 86 16 124/87 General Appearance: no apparent distress, + obese Head: normocephalic, atraumatic Respiratory/Chest: lungs clear, normal breath sounds Cardiovascular: regular rate, rhythm, normal peripheral pulses Abdomen/GI: non tender, soft Back: + pertinent finding (diffuse TTP, worst area is around the lower T spine centrally and laterally, no spasm noted, no bruising noted) Extremities/Musculoskelatal: no pedal edema, + pertinent finding (R UE with diffuse TTP along dorsal aspect of hand and posterior wrist, when asked to move fingers does move them somewhat but states limitation, able to move b/l LE and toes, flex at ankle) Neurologic/Psych: alert, + pertinent finding (flat affect, answers all questions) Skin: normal color, warm/dry Laboratory Results Last 24 Hours Test 03/10/16 15:45 03/10/16 16:53 White Blood Count 8.24K/uL Red Blood Count 4.62M/uL Hemoglobin 13.5g/dL Hematocrit 39.7% Mean Corpuscular Volume 85.9fL Mean Corpuscular Hemoglobin 29.2pg Mean Corpuscular Hemoglobin Concent 34.0g/dl RDW Standard Deviation 43.0fL RDW Coefficient of Variation 13.9% Platelet Count 220K/uL Mean Platelet Volume 10.0fL Sodium Level 144mmol/L Potassium Level mmol/L Chloride Level 109mmol/L Carbon Dioxide Level 25mmol/L Anion Gap 10.0mmol/L Blood Urea Nitrogen 13mg/dl Creatinine 0.72mg/dl Est Creatinine Clear Calc Drug Dose 132.4ml/min Estimated GFR () 127.5 Estimated GFR (Non- 110.0 BUN/Creatinine Ratio 17.6 Random Glucose 105mg/dl Calcium Level 8.4mg/dl Total Bilirubin 0.5mg/dl Aspartate Amino Transf (AST/SGOT) U/L Alanine Aminotransferase (ALT/SGPT) 22U/L Alkaline Phosphatase 66U/L Total Protein 6.7gm/dl Albumin 3.3gm/dl Globulin 3.4gm/dl Albumin/Globulin Ratio 1.0 Assessment & Plan 31 y/o F who is admitted to for acute psychosis and now having MSK issues. R wrist pain/n/t, LE n/t: Uncertain etiology, trauma vs malingering vs B12/ folate def vs hypothyroid Pt has been getting her synthroid after eating and with her protonix, discussed with nursing and will adjust R wrist XR pending B12, folate, TSH pending CBC from earlier today WNL, PRP pending Ibuprofen, heat packs PRN May need t/c imaging of T spine Hypothyroid: hx of synthroid use, last TSH 01/2016 WNL, however pt with multiple medication changes and inappropriate dosing times as above Discussed with nursing TBI, acute psychosis: as per psych
[2016-03-10 18:40] LABS: POTASSIUM 3.6 mmol/L (3.5-5.1)
--- NOTE | 2016-03-10 18:42 | DIAGNOSTIC IMAGING REPORT ---
RIGHT WRIST 5 VIEWS HISTORY: R wrist/hand pain Right COMPARISON: None. FINDINGS: There is no fracture or dislocation. Soft tissues are unremarkable. No radiopaque foreign bodies. Negative ulnar variance. Small focus of cortical thickening at the distal shaft of the ulna. This is of doubtful clinical significance. IMPRESSION: No fractures. Electronically signed by: Elvis Inman M.D. 03/10/2016 6:40 PM
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
[2016-03-10 22:48] VITALS: BP 124/82; PULSE 105
[2016-03-10] MEDS: PALIPERIDONE 3 MG TABCR PO SCH (22:57)
[2016-03-11 07:03] VITALS: BP_SYST 109; BP_SYST 130; BP_DIAS 75; BP_DIAS 91; PULSE 129; PULSE 99; TEMP 36.3
[2016-03-11] MEDS: LEVOTHYROXINE 125 MCG TAB PO SCH (07:16)
[2016-03-11] MEDS: FLUTICASONE PROPIONATE NA SPR 16 GM BTL NAE SCH (09:00)
[2016-03-11] MEDS: DICLOFENAC SOD 1% GEL 100 GM TUBE EXT SCH ×3 (09:00→22:42)
[2016-03-11] MEDS: TAMSULOSIN HCL 0.4 MG CAP PO SCH (10:21)
[2016-03-11] MEDS: DULOXETINE HCL 60 MG CAP PO SCH (10:21)
[2016-03-11] MEDS: CLONAZEPAM 1 MG TAB PO SCH ×2 (10:22→22:28)
[2016-03-11] MEDS: BACLOFEN 10 MG TAB PO SCH ×3 (10:22→22:28)
[2016-03-11] MEDS: MELOXICAM 7.5 MG TAB PO SCH (10:22)
[2016-03-11] MEDS: GABAPENTIN 100 MG CAP PO SCH ×3 (10:22→22:28)
[2016-03-11] MEDS: GABAPENTIN 400 MG CAP PO SCH ×3 (10:23→22:28)
[2016-03-11] MEDS: PANTOprazole SOD 40 MG TAB PO SCH ×2 (10:23→22:28)
[2016-03-11] MEDS: GLYCOPYRROLATE 1 MG TAB PO SCH ×3 (10:23→22:28)
[2016-03-11] MEDS: BuPROPion SR 100 MG TABCR PO SCH (10:23)
[2016-03-11 13:57] VITALS: BP 119/88; PULSE 116
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
[2016-03-11] MEDS: PALIPERIDONE 3 MG TABCR PO SCH (22:27)
[2016-03-11 22:47] VITALS: BP 94/61; PULSE 93
[2016-03-12] MEDS: LEVOTHYROXINE 125 MCG TAB PO SCH (06:56)
[2016-03-12 07:01] VITALS: BP_SYST 115; BP_SYST 93; BP_DIAS 63; BP_DIAS 78; PULSE 101; PULSE 83; TEMP 36.9
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
[2016-03-12] MEDS: DICLOFENAC SOD 1% GEL 100 GM TUBE EXT SCH ×3 (09:20→21:09)
[2016-03-12] MEDS: FLUTICASONE PROPIONATE NA SPR 16 GM BTL NAE SCH (09:21)
[2016-03-12] MEDS: TAMSULOSIN HCL 0.4 MG CAP PO SCH (09:21)
[2016-03-12] MEDS: MELOXICAM 7.5 MG TAB PO SCH (09:21)
[2016-03-12] MEDS: DULOXETINE HCL 60 MG CAP PO SCH (09:21)
[2016-03-12] MEDS: CLONAZEPAM 1 MG TAB PO SCH ×2 (09:21→21:09)
[2016-03-12] MEDS: BACLOFEN 10 MG TAB PO SCH ×3 (09:21→21:10)
[2016-03-12] MEDS: GABAPENTIN 400 MG CAP PO SCH ×3 (09:22→21:09)
[2016-03-12] MEDS: GABAPENTIN 100 MG CAP PO SCH ×3 (09:22→21:10)
[2016-03-12] MEDS: PANTOprazole SOD 40 MG TAB PO SCH ×2 (09:22→21:09)
[2016-03-12] MEDS: BuPROPion SR 100 MG TABCR PO SCH (09:22)
[2016-03-12] MEDS: GLYCOPYRROLATE 1 MG TAB PO SCH ×3 (09:22→21:09)
[2016-03-12 14:41] VITALS: BP 131/86; PULSE 120
[2016-03-12] MEDS: PALIPERIDONE 3 MG TABCR PO SCH (21:10)
[2016-03-13 07:04] VITALS: BP_SYST 122; BP_SYST 78; BP_DIAS 68; BP_DIAS 81; PULSE 79; PULSE 95; TEMP 36.5
[2016-03-13] MEDS: LEVOTHYROXINE 125 MCG TAB PO SCH (07:45)
[2016-03-13] MEDS: FLUTICASONE PROPIONATE NA SPR 16 GM BTL NAE SCH (09:26)
[2016-03-13] MEDS: DICLOFENAC SOD 1% GEL 100 GM TUBE EXT SCH ×4 (09:26→22:35)
[2016-03-13] MEDS: CLONAZEPAM 1 MG TAB PO SCH ×2 (09:27→22:36)
[2016-03-13] MEDS: MELOXICAM 7.5 MG TAB PO SCH (09:27)
[2016-03-13] MEDS: DULOXETINE HCL 60 MG CAP PO SCH (09:27)
[2016-03-13] MEDS: BACLOFEN 10 MG TAB PO SCH ×3 (09:27→22:36)
[2016-03-13] MEDS: TAMSULOSIN HCL 0.4 MG CAP PO SCH (09:27)
[2016-03-13] MEDS: GLYCOPYRROLATE 1 MG TAB PO SCH ×3 (09:28→22:37)
[2016-03-13] MEDS: GABAPENTIN 400 MG CAP PO SCH ×3 (09:28→22:37)
[2016-03-13] MEDS: PANTOprazole SOD 40 MG TAB PO SCH ×2 (09:28→22:37)
[2016-03-13] MEDS: GABAPENTIN 100 MG CAP PO SCH ×3 (09:28→22:37)
[2016-03-13] MEDS: BuPROPion SR 100 MG TABCR PO SCH (09:28)
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
[2016-03-13] MEDS: MAGNESIUM HYDROXIDE SUSP 30 ML UDC PO PRN (11:50)
[2016-03-13] MEDS: PALIPERIDONE 3 MG TABCR PO SCH (22:36)
[2016-03-14 06:58] VITALS: BP_SYST 114; BP_SYST 117; BP_DIAS 65; BP_DIAS 77; PULSE 80; PULSE 91; TEMP 36.8
[2016-03-14] MEDS: LEVOTHYROXINE 125 MCG TAB PO SCH (08:09)
[2016-03-14] MEDS: CLONAZEPAM 1 MG TAB PO SCH ×2 (08:53→21:20)
[2016-03-14] MEDS: DULOXETINE HCL 60 MG CAP PO SCH (08:53)
[2016-03-14] MEDS: TAMSULOSIN HCL 0.4 MG CAP PO SCH (08:53)
[2016-03-14] MEDS: MELOXICAM 7.5 MG TAB PO SCH (08:54)
[2016-03-14] MEDS: BACLOFEN 10 MG TAB PO SCH ×3 (08:54→21:19)
[2016-03-14] MEDS: GABAPENTIN 100 MG CAP PO SCH ×3 (08:54→21:20)
[2016-03-14] MEDS: FLUTICASONE PROPIONATE NA SPR 16 GM BTL NAE SCH (08:55)
[2016-03-14] MEDS: GABAPENTIN 400 MG CAP PO SCH ×3 (08:55→21:19)
[2016-03-14] MEDS: GLYCOPYRROLATE 1 MG TAB PO SCH ×3 (08:55→21:19)
[2016-03-14] MEDS: PANTOprazole SOD 40 MG TAB PO SCH ×2 (08:55→21:19)
[2016-03-14] MEDS: BuPROPion SR 100 MG TABCR PO SCH (08:55)
[2016-03-14] MEDS: DICLOFENAC SOD 1% GEL 100 GM TUBE EXT SCH ×3 (08:57→21:19)
[2016-03-14] MEDS ORDERED: AMANTADINE HCL 100 MG CAP PO ONE (11:51)
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
[2016-03-14] MEDS: PALIPERIDONE 3 MG TABCR PO SCH (21:20)
[2016-03-15 07:15] VITALS: BP 125/91; PULSE 100; TEMP 36.7
[2016-03-15] MEDS: LEVOTHYROXINE 125 MCG TAB PO SCH (08:02)
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
[2016-03-15] MEDS: TAMSULOSIN HCL 0.4 MG CAP PO SCH (08:51)
[2016-03-15] MEDS: DICLOFENAC SOD 1% GEL 100 GM TUBE EXT SCH ×3 (08:51→20:28)
[2016-03-15] MEDS: DULOXETINE HCL 60 MG CAP PO SCH (08:51)
[2016-03-15] MEDS: CLONAZEPAM 1 MG TAB PO SCH ×2 (08:51→20:29)
[2016-03-15] MEDS: FLUTICASONE PROPIONATE NA SPR 16 GM BTL NAE SCH (08:51)
[2016-03-15] MEDS: BACLOFEN 10 MG TAB PO SCH ×3 (08:52→20:30)
[2016-03-15] MEDS: MELOXICAM 7.5 MG TAB PO SCH (08:52)
[2016-03-15] MEDS: AMANTADINE HCL 100 MG CAP PO SCH (08:53)
[2016-03-15] MEDS: PANTOprazole SOD 40 MG TAB PO SCH ×2 (08:53→20:31)
[2016-03-15] MEDS: GABAPENTIN 400 MG CAP PO SCH ×3 (08:53→20:31)
[2016-03-15] MEDS: GABAPENTIN 100 MG CAP PO SCH ×3 (08:53→20:30)
[2016-03-15] MEDS: GLYCOPYRROLATE 1 MG TAB PO SCH ×3 (08:53→20:31)
[2016-03-15] MEDS: MAGNESIUM HYDROXIDE SUSP 30 ML UDC PO PRN (11:42)
[2016-03-15] MEDS: PALIPERIDONE 3 MG TABCR PO SCH (20:29)
[2016-03-16 06:53] VITALS: BP_SYST 100; BP_SYST 129; BP_DIAS 68; BP_DIAS 85; PULSE 113; PULSE 87; TEMP 36.6
--- NOTE | 2016-03-16 08:16 | Psychiatric Progress Notes ---
Progress Note Date of Service Mar 16, 2016. Interval History Joyce Almendarez is a 31 year old woman who has been hospitalized here many times previously - most recently November and December 2015. She was admitted on a voluntary basis 02/22/1616 with reports of auditory hallucinations of her father wanting her to come to [facility] with him. She was converted to a 304 involuntary commitment on 03/12/16 after several days of refusing to eat, drink or take medications with command auditory hallucinations telling her not to do these things. We are now referring her to [facility]. Chief Complaint "Okay". Subjective Patient was seen & assessed interval progress reviewed with nursing. Staff report she goes to some groups, but comes late and leaves early, with little participation. She remains somatically focused, complaining of pain, difficulty self-cathing due to right hand numbness, and reported constipation with no BM in weeks, so was started on lactulose and had a BM. Today she met with the physical therapist, who reports she had pain with all testing, strength was poor , but range of motion was good. She was given exercises to do. She is concerned about her hand, saying her right hand is "completely numb" and now painful as well, with some left hand numbness as well. She is requesting to see the hospitalist again. She says despite this, her mood is a little better, and rates it a 5 out of 10. She denies SI and AVH. She wants to know "are they still looking for a house for me?" She endorses worry about her chronic health issues, but poor insight into how she will manage these outside the hospital. Review of Systems Medication Side Effects: Possible akathisia Sleep Information Total Hours of Sleep: 6.50 Meal Information Percent of Breakfast Consumed: 90 Percent of Lunch Consumed: 30 Percent of Dinner Consumed: 100 Mental Status Exam During interview pt is: cooperative, other Appearance: appropriately dressed, disheveled (unkempt, overweight, limited grooming and hygiene.), other (obses, facial acne, unkempt, limited hygiene and grooming) Eye contact is: good, other (staring) Motor behavior is: psychomotor agitation (restless, stands up repeatedly and shifts weight back and forth), other (increased, standing up repeatedly, pacing , rocking back and forth, bradykinetic arms) Speech: normal in rate, rhythm & volume, other (slowed, irritable tone) Affect: depressed, irritable Mood is: depressed, irritable Thought process: perseveration (asks the same questions multiple times a day) Thought content: preoccupation (with hand numbness) Suicidal thought are: denied, Plan: denied, Intent: denied Homicidal thoughts are: denied Hallucinations: denies auditory, denies visual Cognition: other (memory and attention impaired) Intelligence estimated to be: average Insight: impaired Judgement: impaired Medication Trials (1) Past Psych Meds Risperdal -- EPS, hypotension, ineffective Remeron - brief trial in hospital, ineffective Ambien propranolol trazodone haldol - muscle jerking, drooling, Parkinsonian symptoms Wellbutrin - worsened agitation and psychosis benzos - abused them Suboxone - for opiate abuse Last Edited By: Patrica Iqbal on Mar 16, 2016 11:31 Impression Auditory hallucinations have waxed and waned throughout the course of her hospitalization, and has had periods of refusing to eat, refusing meds, and responding to internal stimuli. Mood is poor, affect restricted, and she remains irritable and frustrated with her circumstances, wanting to go home and to pain management, but has repeatedly demonstrated her inability to care for herself, including the abuse of narcotic pain meds. She remains on a [address] to [facility]. Continued Inpatient Care Requires inpatient care due to the severity of her condition and inability to care for herself outside of a structured environment. Plan (1) Major depressive disorder with psychotic features A. Continue Cymbalta 90 mg daily. B. Continue Haldol 5 mg b.i.d. C. Q. 15 minute checks for safety. D. Reality orientation. E. Encourage participation in group and individual counseling. F. Attempt to establish a meeting with sisterRadha to enlist her support finding alternate housing placement. G. Contact outpatient manager case has been involved with her and possibly looking for alternate housing arrangements. Meeting scheduled 02/23 at 8 am. H. Coordinate care with Dr. Hoffman's office whom she says is her outpatient psychiatrist, although she has not seen him lately. 02/22/16: Cymbalta increased to 120mg daily. 02/24/16: patient's psychosis is again improved with restart of Haldol, patient is agreeable to long acting injectable as recognizes med non-compliance has contributed to multiple admissions. Will order 100 mg Haldol IM today with plan to taper oral Haldol over next week. Next dec shot due 03/23/16. Patient is also agreeable to assisted referral. 02/26/16: Decrease oral Haldol from 5mg bid to 5mg qhs. 02/27/16: Meeting with sister and manager case. Patient cannot return home, house and truck being sold as she cannot afford them. Adult protective services involved and will explore placement options. 02/28/16: - MA 51 completed - Continue current meds. - Explore use of methylene blue for depression post TBI - Meeting with manager case, executive secretary social welfare, and rep payee 02/29/16: - Paperwork for rep payee completed - Exploring options for personal care homes, as cannot live independently. 03/02/16 - Add Wellbutrin SR 100 mg daily for mood, energy, cognitive dulling - No documented hx of seizures either inpatient or in OP neuro notes. 03/03/16 and 03/05/16 - Continue current medications, as patient denies side effects, but watch as wellbutrin amplifies cymbalta in vivo. 03/06/16 - Increase Wellbutrin SR to 150 mg. daily - [facility] rep to visit today 03/07/16 - Hallucinations worse, not eating or drinking, nor taking meds. - Restless, likely akathisia - Will convert to Invega starting at 3 mg. daily titrating as tolerated and consider Sustenna - DC Seroquel - CMP due to concerns for hyponatremia or other metabolic derangements since she isn't eating - WILL FILE FOR A 304 as patient has not ability to care for herself and there are, as of yet, no short term options for her. She has repeatedly failed at home and sending her back there even temporarily will set her up for failure. Will refer to [facility]. 03/08/16 - Increase Invega to 6 mg. HS - The patient will require individual attention in order to get to eat and drink 03/08/16 - Add Klonopin 1 mg. BID - Consider increasing Invega to 9 mg. HS tomorrow - Reduce Wellbutrin SR to 100 mg. in the event it has been worsening her condition. - Ask Dr. Morrison or neuro party plan salesperson to weigh in regarding the direction her care should take 03/10 - CMP, CBC, TSH, vit B12 and folate all normal - encourage PO intake 03/11 - unable to effectively reality test - Reviewed tx hx. Efforts in past to reduce medication burden possibly helpful in brightening affect but unclear if this may have contributed to exacerbation of psychosis. She had haldol decanoate earlier this month and will defer further dose escalation of antipsychotic for now as she appears so motorically retarded. - Will check duloxetine level to see if there might be room for more aggressive antidepressant tx which ultimately may help to reduce psychosis 03/12 - 304 granted. - Refer to [facility]. - Increase Invega to 9mg daily. - Continue Wellbutrin, SR 100mg qam, clonazepam 1mg bid, duloxetine 120mg qam. 03/14 - DC Wellbutrin due to concerns it worsened hallucinations and is contributing to agitation - Amantadine 100 mg. daily for restlessness and for procognitive benefits. (2) Chronic pain associated with significant psychosocial dysfunction A. Discontinue Nucynta as the patient has no one to follow this and inability to get any appointments. B. She has an outpatient appointment with [facility] pain management on March 14 which we hope that she will keep as that may be the person to manage her reports of pain, although it is unlikely she will get there without significant support. C. Encourage heat and ice p.r.n. D. Encourage walking and gentle exercising. 02/25/16: patient appears to be here for an extended stay due to inability to care for self due to her overall combo of mental health and physical condition issues. MD spoke with Dr. Morrison today as patient was requesting consult. Rereviewed challenges for this patient. He recognizes role for Nucynta given her objective pathology (surgical scarring and past nerve conduction studies) but it is not a medication he prescribes. Reviewed that treatment team here doesn't feel she can manage it at home outside of structured setting. Rereviewed pain management consult, only recommended agent, patient has exhausted other options to augment pain control and pain does appear to be increasing in last 24-48 hours and genuinely interfering with participation in programming. Will order 1 time dose under contract with patient. 02/27/16: Recommend Tylenol, Baclofen, gentle stretching, and use of heating pad for management of chronic back pain. 02/29/16: Patient continues to complain of chronic low back pain, and is isolating in her bed with little movement. Will request PT consult to assist with gentle stretching and exercises to assist with chronic pain. 03/01/16: Again reviewed concerns with starting narcotic pain meds, and patient is requesting a pain management consult. Contacted Dr. العراقي to discuss, as this is a complex, chronic pain issue and we are attempting to manage it conservatively without adding medications that have caused medical and psychiatric problems for her in the past several months. Awaiting PT assessment, and encouraging use of Voltaren gel, Baclofen, acetaminophen, and heating pad. Encourage her to be out of bed, moving, and stretching multiple times a day. Awaiting call back from Pain Management to discuss any other acute options while inpatient and awaiting evaluation at [facility] on . - Spoke with Dr. Sun who is familiar with the patient. She has been noncompliant and fired from multiple local offices. He suggested oral Toradol or hydrocodone/APAP 5mg tid, but only in the hospital, as she is not able to safely manage these meds outside the hospital. Could also give Meloxicam ( starting dose 7.5mg daily, can increase to 15mg daily), which is a safer bone glue maker analgesic. She has disc damage but is not a good surgical candidate. 03/03 - 03/05/16: Continue meloxicam, and encourage physical activation. Continue cymbalta. 03/06/16 - Increase neurontin to 1000 mg. TID. - Continue to encourage exercises multiple times per day. 03/10 - pt c/o RUE weakness. reviewed record and she does have h/o pathology at c5- c6 on CT last month. will request input from hospitalist before additional studies ordered 03/11 - appreciate assistance from medical consultation for RUE weakness. Xray and labs looked ok without acute process evident. Will consider cervical/thoracis spine CT with input from hospitalist service. 03/12 - Increase Meloxicam to 15mg daily. Encourage exercise multiple times daily, and participation with PT. Continue Baclofen, Tylenol, Ibuprofen and heat packs prn. Appreciate hospitalist input and will defer need for further imaging of wrist/spine to them. 03/15 - PT consult to work on her hand numbness, which she says is ongoing, despite negative workup by hospitalist. (3) Hypothyroidism A. Labs within normal limits. B. Continue home dose of Synthroid. (4) GERD (gastroesophageal reflux disease) A. Continue home dose of Protonix. (5) Opiate dependence Avoiding use of narcotics due to ongoing abuse/misuse/negative outcomes (car accident, falls, etc). (6) TBI (traumatic brain injury) Patient has reported multiple head injuries, and may benefit from evaluation for TBI in the long run if cognitive and other post-concussive symptoms continue after primary mental illness symptoms stabilize. 03/13 - Discussed case with Dr. Morrison, neurology, who does not feel there are any acute neurological concerns and supports [facility] psychiatric treatment. (7) History of medication noncompliance Recommend higher level of care such as [facility] for medication oversight, see related social work notes pending possible [facility] assessment on 03/05/16. Discharge / Aftercare Planning Primary Care Physician: Name: Dr Benjamin at [facility] Psychiatrist: Name: Dr Hoffman Therapist: Name: pt did not follow up last time Leacher: Name: BRUNILDA Bryant [facility]: Name: [facility] Phone Number: [phone] Date of Appointment: Apr 11, 2016 Time of Appointment: 2:00 pm Visit Code E&M Code: 50243 Risk Factors Assessment : Yes /single/: Yes Access to guns: No Health problems: Yes Mental Health Diagnoses: Yes Substance use disorders: Yes Previous attempt: Yes (overdosed on a bottle of gabapentin a couple of weeks prior to admission, and did not tell anyone or seek care) Previous attempt;highly lethal: Yes Previous attempt; planned: Yes Previous attempt; didn't tell: Yes Family history of suicide: No Previous psychiatric stay: Yes Hopelessness: Yes Protective Factors Assessment Islam beliefs: Yes : No Responsible for young children: No Employed: No Stable relationships: No Supportive family: No Good rapport with provider: No Absence of risk factors above: No Data Vital Signs Last 24 Hrs: Date Time Temp Pulse Resp B/P Pulse Ox O2 Delivery O2 Flow Rate FiO2 03/16/16 06:53 36.6 87 18 100/68 113 129/85 Meds Administered Last 24 Hrs: Meds Administered (Past 24Hrs) Medications (Trade) Dose Ordered Sig/Lisbet Route Start Time Stop Time Status Last Admin Dose Admin Amantadine HCl (Symmetrel Cap) 100 mg QAM PO 03/15/16 09:00 04/14/16 08:59 03/15/16 08:53 100 MG Amantadine HCl (Symmetrel Cap) 100 mg 1151 ONCE PO 03/14/16 11:51 03/14/16 12:19 DC 03/14/16 13:22 100 MG
[2016-03-16] MEDS: TAMSULOSIN HCL 0.4 MG CAP PO SCH (09:00)
[2016-03-16] MEDS: DICLOFENAC SOD 1% GEL 100 GM TUBE EXT SCH ×3 (09:00→22:09)
[2016-03-16] MEDS: LEVOTHYROXINE 125 MCG TAB PO SCH (09:23)
[2016-03-16] MEDS: FLUTICASONE PROPIONATE NA SPR 16 GM BTL NAE SCH (09:23)
[2016-03-16] MEDS: MELOXICAM 7.5 MG TAB PO SCH (09:24)
[2016-03-16] MEDS: PANTOprazole SOD 40 MG TAB PO SCH ×2 (09:24→22:11)
[2016-03-16] MEDS: GLYCOPYRROLATE 1 MG TAB PO SCH ×3 (09:24→22:10)
[2016-03-16] MEDS: DULOXETINE HCL 60 MG CAP PO SCH (09:24)
[2016-03-16] MEDS: AMANTADINE HCL 100 MG CAP PO SCH (09:24)
[2016-03-16] MEDS: BACLOFEN 10 MG TAB PO SCH ×3 (09:24→22:10)
[2016-03-16] MEDS: CLONAZEPAM 1 MG TAB PO SCH ×2 (09:24→22:11)
[2016-03-16] MEDS: GABAPENTIN 400 MG CAP PO SCH ×3 (09:24→22:11)
[2016-03-16] MEDS: GABAPENTIN 100 MG CAP PO SCH ×3 (09:24→22:10)
[2016-03-16] MEDS: IBUPROFEN 800 MG TAB PO PRN (11:02)
--- NOTE | 2016-03-16 11:24 | Hospitalist Progress Note ---
Hospitalist Progress Note Date of Service Mar 16, 2016. Subjective Pt evaluation today including: conversation w/ patient, physical exam, chart review, lab review, review of studies, review of inpatient medication list Patient complains of increased right hand pain, rating it at an 8/10. 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 She admits to pain with flexion/ extension of cervical neck. She admits to numbness/tingling of bilateral hands. She admits to decreased sensation of right hand. She denies any trauma to upper extremities, neck, or spine. ROS is otherwise negative. Medications Current Inpatient Medications Medications (Trade) Dose Ordered Sig/Lisbet Route Start Time Stop Time Status Last Admin Dose Admin Acetaminophen (Tylenol Tab) 650 mg Q4H PRN PO 02/21/16 20:00 03/22/16 19:59 02/28/16 19:00 650 MG Bismuth Subsalicylate (Kaopectate Liqd) 15 ml PRN PRN PO 02/21/16 20:00 03/22/16 19:59 Al Hydroxide/Mg Hydroxide (Maalox Susp) 30 ml Q4H PRN PO 02/21/16 20:00 03/22/16 19:59 Magnesium Hydroxide (Milk Of Magnesia Susp) 30 ml DAILY PRN PO 02/21/16 20:00 03/22/16 19:59 03/15/16 11:42 30 ML Sodium Chloride (Ute Nasal [place]) PRN PRN NA 02/21/16 20:00 03/22/16 19:59 Hydroxyzine HCl (Vistaril Tab) 50 mg HSZ PRN PO 02/21/16 20:00 03/22/16 19:59 02/27/16 22:56 50 MG Hydroxyzine HCl (Vistaril Tab) 25 mg Q4H PRN PO 02/21/16 20:00 03/22/16 19:59 Baclofen (Lioresal Tab) 10 mg TID PO 02/21/16 21:00 03/22/16 20:59 03/16/16 09:24 10 MG Diclofenac Sodium (Voltaren 1% Top Gel) 1 appln TID EXT 02/21/16 21:00 03/22/16 20:59 03/15/16 20:28 1 APPLN Duloxetine HCl (Cymbalta Cap) 120 mg DAILY PO 02/22/16 09:00 03/23/16 08:59 03/16/16 09:24 120 MG Fluticasone Propionate (Flonase Nasal [place]) 2 sprays DAILY JUSTINO 02/22/16 09:00 03/23/16 08:59 03/16/16 09:23 2 SPRAYS Furosemide (Lasix tab) 40 mg DAILY PRN PO 02/21/16 20:00 03/22/16 19:59 Glycopyrrolate (Robinul Tab) 1 mg TID PO 02/21/16 22:00 03/22/16 21:59 03/16/16 09:24 1 MG Levothyroxine Sodium (Synthroid Tab) 125 mcg DAILYBB PO 02/22/16 08:00 03/23/16 07:59 03/16/16 09:23 125 MCG Ondansetron HCl (Zofran Tab) 4 mg Q6HWA PRN PO 02/21/16 20:00 03/22/16 19:59 03/07/16 11:35 4 MG Pantoprazole Sodium (Protonix Tab) 40 mg BID PO 02/21/16 21:00 03/22/16 20:59 03/16/16 09:24 40 MG Sumatriptan Succinate (Imitrex Tab) 100 mg DAILY PRN PO 02/21/16 20:00 03/22/16 19:59 Tamsulosin HCl (Flomax Cap) 0.8 mg DAILY PO 02/22/16 09:00 03/23/16 08:59 03/15/16 08:51 0.8 MG Haloperidol (Haldol Tab) 5 mg Q6H PRN PO 02/21/16 20:15 03/22/16 20:14 03/08/16 14:57 5 MG Benztropine Mesylate (Cogentin Tab) 0.5 mg Q6H PRN PO 02/21/16 20:15 03/22/16 20:14 Gabapentin (Neurontin Cap) 800 mg TID PO 03/06/16 14:00 04/05/16 13:59 Future hold 03/16/16 09:24 800 MG Gabapentin (Neurontin Cap) 200 mg TID PO 03/06/16 14:00 04/05/16 13:59 Future hold 03/16/16 09:24 200 MG Clonazepam (Klonopin Tab) 1 mg BID PO 03/09/16 22:00 04/08/16 21:59 Future hold 03/16/16 09:24 1 MG Ibuprofen (Motrin Tab) 800 mg QID PRN PO 03/10/16 18:15 04/09/16 18:14 03/16/16 11:02 800 MG Meloxicam (Mobic Tab) 15 mg QAM PO 03/13/16 09:00 04/12/16 08:59 03/16/16 09:24 15 MG Paliperidone (Invega) 9 mg HS PO 03/12/16 22:00 04/11/16 21:59 03/15/16 20:29 9 MG Amantadine HCl (Symmetrel Cap) 100 mg QAM PO 03/15/16 09:00 04/14/16 08:59 03/16/16 09:24 100 MG Lactulose (Chronulac Syrup) 50 gm BID PRN PO 03/16/16 09:00 04/15/16 08:59 Objective Vital Signs Date Time Temp Pulse Resp B/P Pulse Ox O2 Delivery O2 Flow Rate FiO2 03/16/16 06:53 36.6 87 18 100/68 113 129/85 Physical Exam General Appearance: no apparent distress Eyes: normal inspection, PERRL ENT: hearing grossly normal Neck: supple Respiratory/Chest: no respiratory distress, no accessory muscle use Cardiovascular: regular rate, rhythm Abdomen: normal bowel sounds, non tender, soft Extremities: + pertinent finding (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 FINDINGS: There is no fracture or dislocation. Soft tissues are unremarkable. No radiopaque foreign bodies. Negative ulnar variance. Small focus of cortical thickening at the distal shaft of the ulna. This is of doubtful clinical significance. IMPRESSION: No fractures. Electronically signed by: Elvis Inman M.D. 03/10/2016 6:40 PM The status of this report is Signed. Draft = Not yet reviewed or approved by Radiologist. Signed = Reviewed and approved by Radiologist Assessment and Plan 31 y/o F who is admitted to for acute psychosis and now having MSK issues. R wrist pain/n/t, LE n/t: Uncertain etiology, trauma vs malingering vs B12/ folate def vs hypothyroid (03/10) Pt has been getting her Synthroid after eating and with her Protonix, discussed with nursing and will adjust R wrist XR- no fractures B12, folate, TSH- WNL ha1c 5.0 (02/07/16) Ibuprofen, heat packs PRN Right hand pain persisting with decreases strength and sensory deficit () --Will follow up with MRI of cervical spine due to failed conservative treatment and worsening symptoms. --CT of cervical spine (02/06/16)- Degenerative changes present most pronounced at the C5-6 level. There is mild spinal canal narrowing at this level. Hypothyroid: hx of synthroid use, last TSH 01/2016 WNL, however pt with multiple medication changes and inappropriate dosing times as above Discussed with nursing TBI, acute psychosis: as per psych
[2016-03-16] MEDS ORDERED: GADAVIST IV PRN (12:45)
[2016-03-16 12:53] LABS: ESTIMATED AVERAGE GLUCOSE 103 mg/dl; HA1C FLAG Normal (Normal)
--- NOTE | 2016-03-16 13:04 | DIAGNOSTIC IMAGING REPORT ---
MRI CERVICAL SPINE COMBO CLINICAL HISTORY: Bilateral hand numbness and tingling. COMPARISON STUDY: CT scan of the cervical spine dated 02/06/2016. MRI of the cervical spine dated 11/24/2015. TECHNIQUE: MRI of the cervical spine is performed utilizing various T1 and T2-weighted sequences in the axial and sagittal planes. Contrast-enhanced sequences are acquired following the IV administration of 9 cc of Gadavist. FINDINGS: Cervical spine: Vertebral body height and alignment are maintained throughout the cervical spine. Normal marrow signal intensity is preserved throughout the visualized bony structures. The atlantodental articulation appears maintained. The spinous processes are intact. Intervertebral discs: There is minimal degenerative disc desiccation and loss of height at C5-C6. The remaining discs are normal in morphology and signal intensity. Spinal cord: The cervical spinal cord is normal in morphology and signal intensity. No abnormal enhancement is seen on the postcontrast images. C2-C3: Unremarkable. C3-C4: There is a tiny posterior disc osteophyte complex eccentric to the right. The central canal and neuroforamina are widely patent. C4-C5: A posterior disc osteophyte complex abuts the ventral cord. Facet arthropathy causes minimal left-sided neuroforaminal stenosis. C5-C6: A posterior disc osteophyte complex effaces the ventral cord. Uncovertebral and facet arthropathy cause moderate left and mild right neuroforaminal stenosis. C6-C7: Facet arthropathy is of no consequence. The central canal and neuroforamina are widely patent. C7-T1: Unremarkable. Soft tissues: The prevertebral and paraspinous soft tissues are within normal limits. Brain parenchyma: Partially imaged brain parenchyma at the skull base is normal in appearance. Mucosal thickening is seen in the right maxillary antrum. IMPRESSION: 1. Cervical spondylosis as above, greatest at C5-C6. This has not significantly changed from 11/24/2015. 2. No destructive bony process is identified. 3. The cervical spinal cord is normal in morphology and signal intensity. Dictated: 03/16/2016 12:48 PM Transcribed: 03/16/2016 1:04 PM Екатерина Electronically signed by: Minor Poole M.D. 03/16/2016 1:34 PM
[2016-03-16] MEDS: LACTULOSE SYRUP 10 GM/15 ML BTL 473 ML PO PRN (13:38)
--- NOTE | 2016-03-16 16:28 | DIAGNOSTIC IMAGING REPORT ---
RIGHT WRIST MIN 3 VIEWS ROUTINE CLINICAL HISTORY: Right wrist pain and swelling. COMPARISON: 03/10/2016 DISCUSSION: 4 views reveal no fractures or dislocations. There are no erosive or destructive changes. IMPRESSION: No fractures or dislocations. No evidence of erosive disease. Electronically signed by: Kapil Greenwood M.D. 03/16/2016 4:27 PM
[2016-03-16] MEDS: PALIPERIDONE 3 MG TABCR PO SCH (22:11)
[2016-03-17 06:57] VITALS: BP_SYST 128; BP_SYST 93; BP_DIAS 83; PULSE 80; PULSE 97; TEMP 36.4
[2016-03-17] MEDS: LEVOTHYROXINE 125 MCG TAB PO SCH (08:09)
[2016-03-17] MEDS: FLUTICASONE PROPIONATE NA SPR 16 GM BTL NAE SCH (08:38)
[2016-03-17] MEDS: DULOXETINE HCL 60 MG CAP PO SCH (08:38)
[2016-03-17] MEDS: TAMSULOSIN HCL 0.4 MG CAP PO SCH (08:38)
[2016-03-17] MEDS: CLONAZEPAM 1 MG TAB PO SCH ×3 (08:38→21:28)
[2016-03-17] MEDS: GABAPENTIN 400 MG CAP PO SCH ×3 (08:39→21:27)
[2016-03-17] MEDS: GABAPENTIN 100 MG CAP PO SCH ×3 (08:39→21:27)
[2016-03-17] MEDS: MELOXICAM 7.5 MG TAB PO SCH (08:39)
[2016-03-17] MEDS: PANTOprazole SOD 40 MG TAB PO SCH ×2 (08:39→21:27)
[2016-03-17] MEDS: GLYCOPYRROLATE 1 MG TAB PO SCH ×3 (08:39→21:28)
[2016-03-17] MEDS: BACLOFEN 10 MG TAB PO SCH ×3 (08:39→21:27)
[2016-03-17] MEDS: AMANTADINE HCL 100 MG CAP PO SCH (08:40)
[2016-03-17] MEDS: DICLOFENAC SOD 1% GEL 100 GM TUBE EXT SCH ×3 (08:43→21:27)
[2016-03-17 09:56] VITALS: BP 119/84; PULSE 104
--- NOTE | 2016-03-17 10:21 | Psychiatric Progress Notes ---
Progress Note Date of Service Mar 17, 2016. Interval History Joyce Almendarez is a 31 year old woman who has been hospitalized here many times previously - most recently November and December 2015. She was admitted on a voluntary basis 02/22/1616 with reports of auditory hallucinations of her father wanting her to come to [facility] with him. She was converted to a 304 involuntary commitment on 03/12/16 after several days of refusing to eat, drink or take medications with command auditory hallucinations telling her not to do these things. We are now referring her to [facility]. Chief Complaint "I want to see the medical doctor". Subjective Patient was seen & assessed interval progress reviewed with nursing. Staff report she remains somatically focused. She was up early and walked laps around the unit with a female peer. She continues to endorse hand numbness and swelling , and right hand does appear more swollen. She reports low mood, but denies SI. She denies AVH, and says she wants to go home so she can see a pain doctor, then says "you need to find me a house, are they gonna find me a house?" She was encouraged to do the exercises PT gave her for her hand, but says she can't remember what they were. Review of Systems Medication Side Effects: Possible akathisia Sleep Information Total Hours of Sleep: 6.50 Meal Information Percent of Breakfast Consumed: 50 Percent of Lunch Consumed: 70 Percent of Dinner Consumed: 100 Mental Status Exam During interview pt is: cooperative, other Appearance: appropriately dressed, disheveled (unkempt, overweight, limited grooming and hygiene.) Eye contact is: good, other (staring) Motor behavior is: psychomotor agitation (restless, stands up repeatedly and shifts weight back and forth), other (increased, standing up repeatedly, pacing , rocking back and forth, bradykinetic arms) Speech: normal in rate, rhythm & volume, other (slowed, irritable tone) Affect: depressed, anxious, constricted Mood is: depressed, anxious Thought process: perseveration (asks the same questions multiple times a day) Thought content: preoccupation (with hand numbness) Suicidal thought are: denied, Plan: denied, Intent: denied Homicidal thoughts are: denied Hallucinations: denies auditory, denies visual Cognition: other (memory and attention impaired) Intelligence estimated to be: average Insight: impaired Judgement: impaired Medication Trials (1) Past Psych Meds Risperdal -- EPS, hypotension, ineffective Remeron - brief trial in hospital, ineffective Ambien propranolol trazodone haldol - muscle jerking, drooling, Parkinsonian symptoms Wellbutrin - worsened agitation and psychosis benzos - abused them Suboxone - for opiate abuse Last Edited By: Patrica Iqbal on Mar 16, 2016 11:31 Impression Auditory hallucinations have waxed and waned throughout the course of her hospitalization, and has had periods of refusing to eat, refusing meds, and responding to internal stimuli. Mood is poor, affect restricted, and she remains irritable and frustrated with her circumstances, wanting to go home and to pain management, but has repeatedly demonstrated her inability to care for herself, including the abuse of narcotic pain meds. She remains on a [address] to [facility]. Continued Inpatient Care Requires inpatient care due to the severity of her condition and inability to care for herself or provide for her own basic needs outside of a structured environment. Plan (1) Major depressive disorder with psychotic features A. Continue Cymbalta 90 mg daily. B. Continue Haldol 5 mg b.i.d. C. Q. 15 minute checks for safety. D. Reality orientation. E. Encourage participation in group and individual counseling. F. Attempt to establish a meeting with Radha swan to enlist her support finding alternate housing placement. G. Contact outpatient case management assistant has been involved with her and possibly looking for alternate housing arrangements. Meeting scheduled 02/23 at 8 am. H. Coordinate care with Dr. Hoffman's office whom she says is her outpatient psychiatrist, although she has not seen him lately. 02/22/16: Cymbalta increased to 120mg daily. 02/24/16: patient's psychosis is again improved with restart of Haldol, patient is agreeable to long acting injectable as recognizes med non-compliance has contributed to multiple admissions. Will order 100 mg Haldol IM today with plan to taper oral Haldol over next week. Next dec shot due 03/23/16. Patient is also agreeable to [facility] referral. 02/26/16: Decrease oral Haldol from 5mg bid to 5mg qhs. 02/27/16: Meeting with sister and case management assistant. Patient cannot return home, house and truck being sold as she cannot afford them. Adult protective services involved and will explore placement options. 02/28/16: - MA 51 completed - Continue current meds. - Explore use of methylene blue for depression post TBI - Meeting with case management assistant, long term care social worker, and rep payee 02/29/16: - Paperwork for rep payee completed - Exploring options for personal care homes, as cannot live independently. 03/02/16 - Add Wellbutrin SR 100 mg daily for mood, energy, cognitive dulling - No documented hx of seizures either inpatient or in OP neuro notes. 03/03/16 and 03/05/16 - Continue current medications, as patient denies side effects, but watch as wellbutrin amplifies cymbalta in vivo. 03/06/16 - Increase Wellbutrin SR to 150 mg. daily - [facility] rep to visit today 03/07/16 - Hallucinations worse, not eating or drinking, nor taking meds. - Restless, likely akathisia - Will convert to Invega starting at 3 mg. daily titrating as tolerated and consider Sustenna - DC Seroquel - CMP due to concerns for hyponatremia or other metabolic derangements since she isn't eating - WILL FILE FOR A 304 as patient has not ability to care for herself and there are, as of yet, no short term options for her. She has repeatedly failed at home and sending her back there even temporarily will set her up for failure. Will refer to [facility]. 03/08/16 - Increase Invega to 6 mg. HS - The patient will require individual attention in order to get to eat and drink 03/08/16 - Add Klonopin 1 mg. BID - Consider increasing Invega to 9 mg. HS tomorrow - Reduce Wellbutrin SR to 100 mg. in the event it has been worsening her condition. - Ask Dr. Morrison or neuro quality control assessor to weigh in regarding the direction her care should take 03/10 - CMP, CBC, TSH, vit B12 and folate all normal - encourage PO intake 03/11 - unable to effectively reality test - Reviewed tx hx. Efforts in past to reduce medication burden possibly helpful in brightening affect but unclear if this may have contributed to exacerbation of psychosis. She had haldol decanoate earlier this month and will defer further dose escalation of antipsychotic for now as she appears so motorically retarded. - Will check duloxetine level to see if there might be room for more aggressive antidepressant tx which ultimately may help to reduce psychosis 03/12 - 304 granted. - Refer to [facility]. - Increase Invega to 9mg daily. - Continue Wellbutrin, SR 100mg qam, clonazepam 1mg bid, duloxetine 120mg qam. 03/14 - DC Wellbutrin due to concerns it worsened hallucinations and is contributing to agitation - Amantadine 100 mg. daily for restlessness and for procognitive benefits. 03/17 - Continue Invega 9mg, as psychosis has improved. - Decrease clonazepam to 0.5mg tid to try to limit sedating/addicting medications and polypharmacy. - Continue duloxetine 120mg daily. (2) Chronic pain associated with significant psychosocial dysfunction A. Discontinue Nucynta as the patient has no one to follow this and inability to get any appointments. B. She has an outpatient appointment with [facility] pain management on March 14 which we hope that she will keep as that may be the person to manage her reports of pain, although it is unlikely she will get there without significant support. C. Encourage heat and ice p.r.n. D. Encourage walking and gentle exercising. 02/25/16: patient appears to be here for an extended stay due to inability to care for self due to her overall combo of mental health and physical condition issues. MD spoke with Dr. Morrison today as patient was requesting consult. Rereviewed challenges for this patient. He recognizes role for Nucynta given her objective pathology (surgical scarring and past nerve conduction studies) but it is not a medication he prescribes. Reviewed that treatment team here doesn't feel she can manage it at home outside of structured setting. Rereviewed pain management consult, only recommended agent, patient has exhausted other options to augment pain control and pain does appear to be increasing in last 24-48 hours and genuinely interfering with participation in programming. Will order 1 time dose under contract with patient. 02/27/16: Recommend Tylenol, Baclofen, gentle stretching, and use of heating pad for management of chronic back pain. 02/29/16: Patient continues to complain of chronic low back pain, and is isolating in her bed with little movement. Will request PT consult to assist with gentle stretching and exercises to assist with chronic pain. 03/01/16: Again reviewed concerns with starting narcotic pain meds, and patient is requesting a pain management consult. Contacted Dr. العراقي to discuss, as this is a complex, chronic pain issue and we are attempting to manage it conservatively without adding medications that have caused medical and psychiatric problems for her in the past several months. Awaiting PT assessment, and encouraging use of Voltaren gel, Baclofen, acetaminophen, and heating pad. Encourage her to be out of bed, moving, and stretching multiple times a day. Awaiting call back from Pain Management to discuss any other acute options while inpatient and awaiting evaluation at [facility] on . - Spoke with Dr. Sun who is familiar with the patient. She has been noncompliant and fired from multiple local offices. He suggested oral Toradol or hydrocodone/APAP 5mg tid, but only in the hospital, as she is not able to safely manage these meds outside the hospital. Could also give Meloxicam ( starting dose 7.5mg daily, can increase to 15mg daily), which is a safer care home analgesic. She has disc damage but is not a good surgical candidate. 03/03 - 03/05/16: Continue meloxicam, and encourage physical activation. Continue cymbalta. 03/06/16 - Increase neurontin to 1000 mg. TID. - Continue to encourage exercises multiple times per day. 03/10 - pt c/o RUE weakness. reviewed record and she does have h/o pathology at c5- c6 on CT last month. will request input from hospitalist before additional studies ordered 03/11 - appreciate assistance from medical consultation for RUE weakness. Xray and labs looked ok without acute process evident. Will consider cervical/thoracis spine CT with input from hospitalist service. 03/12 - Increase Meloxicam to 15mg daily. Encourage exercise multiple times daily, and participation with PT. Continue Baclofen, Tylenol, Ibuprofen and heat packs prn. Appreciate hospitalist input and will defer need for further imaging of wrist/spine to them. 03/15 - PT consult to work on her hand numbness, which she says is ongoing, despite negative workup by hospitalist. 03/17 - Continue to work with PT. - Appreciate hospitalist's recommendations. - Continue gabapentin, Baclofen, Meloxicam, Tylenol, Ibuprofen (3) Hypothyroidism A. Labs within normal limits. B. Continue home dose of Synthroid. (4) GERD (gastroesophageal reflux disease) A. Continue home dose of Protonix. (5) Opiate dependence Avoiding use of narcotics due to ongoing abuse/misuse/negative outcomes (car accident, falls, etc). (6) TBI (traumatic brain injury) Patient has reported multiple head injuries, and may benefit from evaluation for TBI in the long run if cognitive and other post-concussive symptoms continue after primary mental illness symptoms stabilize. 03/13 - Discussed case with Dr. Morrison, neurology, who does not feel there are any acute neurological concerns and supports terminal gauger psychiatric treatment. (7) History of medication noncompliance Recommend higher level of care such as [facility] for medication oversight, see related social work notes pending possible [facility] assessment on 03/05/16. Discharge / Aftercare Planning Primary Care Physician: Name: Dr Benjamin at [facility] Psychiatrist: Name: Dr Hoffman Therapist: Name: pt did not follow up last time Assistant Surveyor: Name: BRUNILDA [facility]: Name: [facility] Phone Number: [phone] Date of Appointment: Apr 11, 2016 Time of Appointment: 2:00 pm Visit Code E&M Code: 21081 Risk Factors Assessment : Yes /single/: Yes Access to guns: No Health problems: Yes Mental Health Diagnoses: Yes Substance use disorders: Yes Previous attempt: Yes (overdosed on a bottle of gabapentin a couple of weeks prior to admission, and did not tell anyone or seek care) Previous attempt;highly lethal: Yes Previous attempt; planned: Yes Previous attempt; didn't tell: Yes Family history of suicide: No Previous psychiatric stay: Yes Hopelessness: Yes Protective Factors Assessment Religion beliefs: Yes : No Responsible for young children: No Employed: No Stable relationships: No Supportive family: No Good rapport with provider: No Absence of risk factors above: No Data Vital Signs Last 24 Hrs: Date Time Temp Pulse Resp B/P Pulse Ox O2 Delivery O2 Flow Rate FiO2 03/17/16 09:56 104 16 119/84 03/17/16 06:57 36.4 80 16 128/83 97 93/ Meds Administered Last 24 Hrs: Meds Administered (Past 24Hrs) Medications (Trade) Dose Ordered Sig/Lisbet Route Start Time Stop Time Status Last Admin Dose Admin Lactulose (Chronulac Syrup) 50 gm BID PRN PO 03/16/16 09:00 04/15/16 08:59 03/16/16 13:38 50 GM Lab Results Last 24 Hrs: Last 24 Hours Test 03/16/16 11:21 Estimated Average Glucose 103mg/dl Hemoglobin A1c 5.2% Vitamin B12 Level 375pg/mL Folate 9.58ng/mL
[2016-03-17] MEDS: LACTULOSE SYRUP 10 GM/15 ML BTL 473 ML PO PRN (11:11)
[2016-03-17] MEDS: ACETAMINOPHEN 325 MG TAB PO PRN (12:20)
--- NOTE | 2016-03-17 12:43 | Progress Note ---
Subjective Date of Service: Mar 17, 2016. Subjective Pt evaluation today including: conversation w/ patient, physical exam, chart review, lab review, review of studies, conversation w/ interventional sale consultant, review of inpatient medication list Patient up and walk, however nurse report heart rate was elevated around 100, patient complaining above right wrist pain anemia range of motions, the pain level is 7 out of 10 Problem List Medical Problems: (1) Anterior chest wall pain Status: Acute (2) Chronic back pain Status: Acute (3) Chronic pain Status: Acute (4) Dehydration Status: Acute (5) Dehydration Status: Acute (6) Delusional disorder Status: Acute (7) Depression Status: Chronic (8) Epigastric abdominal pain Status: Acute (9) Fall Status: Acute (10) Fall Status: Acute (11) Fall Status: Acute (12) Generalized weakness Status: Acute (13) Hallucinations Status: Acute (14) Head injury Status: Acute (15) History of medication noncompliance Status: Chronic (16) Hypokalemia Status: Acute (17) Hypomagnesemia Status: Acute (18) Left sided chest pain Status: Acute (19) Lethargy Status: Acute (20) Mood disorder Status: Acute (21) Multiple drug overdose Status: Acute (22) Narcotic overdose Status: Acute (23) Nausea Status: Acute (24) Neck pain Status: Acute (25) Neck pain Status: Acute (26) Syncope Status: Acute (27) Urinary tract infection Status: Acute (28) Urinary tract infection Status: Acute (29) Vomiting Status: Acute Review of Systems Constitutional: No chills, No fatigue, No fever, No problem reported, No sweats , No weakness, No weight loss Eyes: No diplopia, No discharge, No eye pain, No redness, No worsening of vision ENT: No dental problems, No hearing loss, No nasal symptoms, No sore throat, No tinnitus, No trouble swallowing, No unusual epistaxis Respiratory: No cough, No dyspnea at rest, No dyspnea on exertion, No hemoptysis, No shortness of breath, No sputum, No wheezing Cardiac: No PND, No chest pain, No claudication, No edema, No orthopnea, No palpitations Abdomen: No constipation, No diarrhea, No nausea, No pain, No vomiting Musculoskeletal: + joint pain, + swelling, No calf pain, No muscle pain Female : No abnormal vaginal bleeding, No dysuria, No hematuria, No incontinence, No urinary frequency, No vaginal discharge Neurologic: No balance problems, No memory loss, No numbness/tingling, No paralysis, No vertigo, No weakness Psychiatric: No anhedonism, No anxiety, No depression symptoms, No insomnia, No substance abuse Heme: No abnormal bleeding/bruising, No clotting problems, No night sweats, No swollen lymph nodes Endo: No excessive thirst, No excessive urination, No fatigue Skin: No bleeding, No color change, No itch, No new/changing skin lesions, No rash Objective Vital Signs Date Time Temp Pulse Resp B/P Pulse Ox O2 Delivery O2 Flow Rate FiO2 03/17/16 09:56 104 16 119/84 03/17/16 06:57 36.4 80 16 128/83 97 93/ Physical Exam General Appearance: WD/WN, no apparent distress Eyes: normal inspection, PERRL, EOMI, sclerae normal ENT: normal ENT inspection, hearing grossly normal, pharynx normal Neck: supple, no adenopathy, thyroid normal, no JVD, no carotid bruits, trachea midline Respiratory/Chest: chest non-tender, normal breath sounds, no respiratory distress, no accessory muscle use, + decreased breath sounds Cardiovascular: regular rate, rhythm, no edema, no gallop, no JVD, no murmur Abdomen: normal bowel sounds, non tender, soft, no organomegaly, no pulsatile mass Extremities: no pedal edema, normal capillary refill, pelvis stable, + pertinent finding (right wrist minimal swelling mild tender and limited range of motion capillary fill is normal) Neurologic/Psychiatric: feather shaper II-XII nml as tested, no motor/sensory deficits, alert, normal mood/affect, oriented x 3, + abnormal cerebellar tests Skin: normal color, warm/dry, no rash Lymphatic: no adenopathy Assessment and Plan 31 y/o F who is admitted to for acute psychosis and now having MSK issues. R wrist pain/n/t, LE n/t: Uncertain etiology, trauma vs malingering vs B12/folate def vs hypothyroid (03/10) Pt has been getting her Synthroid after eating and with her Protonix, discussed with nursing and will adjust R wrist XR- no fractures , B12, folate, TSH- WNL ha1c 5.0 (02/07/16) Right hand pain persisting with decreases strength and sensory deficit () MRI of cervical spine due to failed conservative treatment and worsening symptoms, which was done on 03/16/2016, which was unremarkable, I will check right upper extremity Doppler ultrasound to rule out DVT, I will request orthopedic to see patient, Ibuprofen, heat packs PRN Hypothyroid: hx of synthroid use, last TSH 01/2016 WNL, however pt with multiple medication changes and inappropriate dosing times as above Discussed with nursing Mild tachycardia, heart rate around 100, TSH was normal, we'll continue follow- up if needed TBI, acute psychosis: as per psych Patient complaining about numbness in the arm, workup so far is unremarkable recommend continue watch, referral to neurologist to have nerve conduction studies if needed Continued [facility] stay due to: home environment unsafe for pt Discharge planning: uncertain
--- NOTE | 2016-03-17 15:03 | DIAGNOSTIC IMAGING REPORT ---
VENOUS DOPPLER RIGHT ARM UPPER EXTREMITY VENOUS DOPPLER HISTORY: Pain. Edema. right wrist swelling and pain, to rule out DVN Right COMPARISON STUDY: None. FINDINGS: The internal jugular vein is patent. There is normal flow within the subclavian vein. There is normal flow and compressibility within the left axillary, basilic, brachial, radial, ulnar, and visualized cephalic veins. IMPRESSION: No DVT within the upper extremity. Electronically signed by: See Vergara M.D. 03/17/2016 3:01 PM
[2016-03-17] MEDS: MAGNESIUM HYDROXIDE SUSP 30 ML UDC PO PRN (15:22)
[2016-03-17 18:05] VITALS: BP 135/87; PULSE 110
[2016-03-17] MEDS: PALIPERIDONE 3 MG TABCR PO SCH (21:28)
[2016-03-18 07:06] VITALS: BP_SYST 113; BP_SYST 129; BP_DIAS 73; BP_DIAS 86; PULSE 78; PULSE 85; TEMP 36.5
[2016-03-18] MEDS: LEVOTHYROXINE 125 MCG TAB PO SCH (08:29)
[2016-03-18] MEDS: FLUTICASONE PROPIONATE NA SPR 16 GM BTL NAE SCH (08:43)
[2016-03-18] MEDS: CLONAZEPAM 1 MG TAB PO SCH ×2 (08:44→13:08)
[2016-03-18] MEDS: TAMSULOSIN HCL 0.4 MG CAP PO SCH (08:44)
[2016-03-18] MEDS: BACLOFEN 10 MG TAB PO SCH ×3 (08:44→21:06)
[2016-03-18] MEDS: DULOXETINE HCL 60 MG CAP PO SCH (08:44)
[2016-03-18] MEDS: MELOXICAM 7.5 MG TAB PO SCH (08:45)
[2016-03-18] MEDS: GABAPENTIN 400 MG CAP PO SCH ×3 (08:45→21:05)
[2016-03-18] MEDS: GABAPENTIN 100 MG CAP PO SCH ×3 (08:45→21:06)
[2016-03-18] MEDS: AMANTADINE HCL 100 MG CAP PO SCH (08:45)
[2016-03-18] MEDS: PANTOprazole SOD 40 MG TAB PO SCH ×2 (08:45→22:00)
[2016-03-18] MEDS: GLYCOPYRROLATE 1 MG TAB PO SCH ×3 (08:45→21:05)
[2016-03-18] MEDS: DICLOFENAC SOD 1% GEL 100 GM TUBE EXT SCH ×3 (08:50→21:05)
[2016-03-18] MEDS ORDERED: METHYLPREDNISOLONE 4MG TAB, 6 DAY TAPER PO SCH (10:30)
--- NOTE | 2016-03-18 10:34 | Psychiatric Progress Notes ---
Progress Note Date of Service Mar 18, 2016. Interval History Joyce Almendarez is a 31 year old woman who has been hospitalized here many times previously - most recently November and December 2015. She was admitted on a voluntary basis 02/22/1616 with reports of auditory hallucinations of her father wanting her to come to [facility] with him. She was converted to a 304 involuntary commitment on 03/12/16 after several days of refusing to eat, drink or take medications with command auditory hallucinations telling her not to do these things. We are now referring her to [facility]. Chief Complaint "Can I see Dr. Morrison?" Subjective Patient was seen & assessed interval progress reviewed with staff. Nursing report she has been out on the unit, walking laps, interacting with peers. She continues to focus on her physical complaints and today is demanding to see neurology for her hand, although she's being seen by the hospitalist who has also ordered an ortho consult, and is asking for pills to help her lose weight, and a Miles catheter. She is difficult to reassure and continues to make her demands even after explaining the treatment plan as outlined by her multiple providers. She complains that "you won't give me what I'm asking for." She was advised that ortho will be seeing her today about her hand, which she continues to state is numb and swollen, feels unable to use it, and says she is trying to do the exercises PT gave her. She thinks she is gaining weight and wants a medication for that, and was willing to meet with a dietitian to discuss her food choices. She reports "ok" mood, denies SI, HI and AVH. She repeatedly states that she "will be going to my pain appointment at [facility], I don't care how, give me a day pass, or my uncle will come and get me." Review of Systems Medication Side Effects: Possible akathisia Sleep Information Total Hours of Sleep: 7.25 Meal Information Percent of Breakfast Consumed: 60 Percent of Lunch Consumed: 70 Percent of Dinner Consumed: 100 Mental Status Exam During interview pt is: other (irritable, multiple demands, doesn't listen to answer before moving on to her next demand) Appearance: appropriately dressed, disheveled (unkempt, overweight, limited grooming and hygiene.) Eye contact is: good (staring), other (staring) Motor behavior is: psychomotor agitation (restless, shifts weight back and forth when standing), other (increased, standing up repeatedly, pacing, rocking back and forth, bradykinetic arms) Speech: normal in rate, rhythm & volume, other (slowed, irritable tone) Affect: depressed, anxious, constricted (incongruent with stated mood) Mood is: other ("okay") Thought process: perseveration (asks the same questions multiple times a day) Thought content: preoccupation (with hand numbness) Suicidal thought are: denied, Plan: denied, Intent: denied Homicidal thoughts are: denied Hallucinations: denies auditory, denies visual Cognition: other (memory and attention impaired) Intelligence estimated to be: average Insight: impaired Judgement: impaired Medication Trials (1) Past Psych Meds Risperdal -- EPS, hypotension, ineffective Remeron - brief trial in hospital, ineffective Ambien propranolol trazodone haldol - muscle jerking, drooling, Parkinsonian symptoms Wellbutrin - worsened agitation and psychosis benzos - abused them Suboxone - for opiate abuse Last Edited By: Patrica Iqbal on Mar 16, 2016 11:31 Impression Auditory hallucinations have waxed and waned throughout the course of her hospitalization, and has had periods of refusing to eat, refusing meds, and responding to internal stimuli. Mood is poor, affect restricted, and she remains irritable and frustrated with her circumstances, wanting to go home and to pain management, but has repeatedly demonstrated her inability to care for herself, including the abuse of narcotic pain meds. She remains on a [address] to [facility]. Continued Inpatient Care Requires inpatient care due to the severity of her condition and inability to care for herself or provide for her own basic needs outside of a structured environment. Plan (1) Major depressive disorder with psychotic features A. Continue Cymbalta 90 mg daily. B. Continue Haldol 5 mg b.i.d. C. Q. 15 minute checks for safety. D. Reality orientation. E. Encourage participation in group and individual counseling. F. Attempt to establish a meeting with Radha swan to enlist her support finding alternate housing placement. G. Contact outpatient manager of case management has been involved with her and possibly looking for alternate housing arrangements. Meeting scheduled 02/23 at 8 am. H. Coordinate care with Dr. Dalton's office whom she says is her outpatient psychiatrist, although she has not seen him lately. 02/22/16: Cymbalta increased to 120mg daily. 02/24/16: patient's psychosis is again improved with restart of Haldol, patient is agreeable to long acting injectable as recognizes med non-compliance has contributed to multiple admissions. Will order 100 mg Haldol IM today with plan to taper oral Haldol over next week. Next dec shot due 03/23/16. Patient is also agreeable to [facility] referral. 02/26/16: Decrease oral Haldol from 5mg bid to 5mg qhs. 02/27/16: Meeting with sister and manager of case management. Patient cannot return home, house and truck being sold as she cannot afford them. Adult protective services involved and will explore placement options. 02/28/16: - MA 51 completed - Continue current meds. - Explore use of methylene blue for depression post TBI - Meeting with manager of case management, social work supervisor, and rep payee 02/29/16: - Paperwork for rep payee completed - Exploring options for personal care homes, as cannot live independently. 03/02/16 - Add Wellbutrin SR 100 mg daily for mood, energy, cognitive dulling - No documented hx of seizures either inpatient or in OP neuro notes. 03/03/16 and 03/05/16 - Continue current medications, as patient denies side effects, but watch as wellbutrin amplifies cymbalta in vivo. 03/06/16 - Increase Wellbutrin SR to 150 mg. daily - Yun Abrahamn rep to visit today 03/07/16 - Hallucinations worse, not eating or drinking, nor taking meds. - Restless, likely akathisia - Will convert to Invega starting at 3 mg. daily titrating as tolerated and consider Sustenna - DC Seroquel - CMP due to concerns for hyponatremia or other metabolic derangements since she isn't eating - WILL FILE FOR A 304 as patient has not ability to care for herself and there are, as of yet, no short term options for her. She has repeatedly failed at home and sending her back there even temporarily will set her up for failure. Will refer to [facility]. 03/08/16 - Increase Invega to 6 mg. HS - The patient will require individual attention in order to get to eat and drink 03/08/16 - Add Klonopin 1 mg. BID - Consider increasing Invega to 9 mg. HS tomorrow - Reduce Wellbutrin SR to 100 mg. in the event it has been worsening her condition. - Ask Dr. Morrison or neuro publicity person to weigh in regarding the direction her care should take 03/10 - CMP, CBC, TSH, vit B12 and folate all normal - encourage PO intake 03/11 - unable to effectively reality test - Reviewed tx hx. Efforts in past to reduce medication burden possibly helpful in brightening affect but unclear if this may have contributed to exacerbation of psychosis. She had haldol decanoate earlier this month and will defer further dose escalation of antipsychotic for now as she appears so motorically retarded. - Will check duloxetine level to see if there might be room for more aggressive antidepressant tx which ultimately may help to reduce psychosis 03/12 - 304 granted. - Refer to [facility]. - Increase Invega to 9mg daily. - Continue Wellbutrin, SR 100mg qam, clonazepam 1mg bid, duloxetine 120mg qam. 03/14 - DC Wellbutrin due to concerns it worsened hallucinations and is contributing to agitation - Amantadine 100 mg. daily for restlessness and for procognitive benefits. 03/17 - 03/18 - Continue Invega 9mg, as psychosis has improved. - Decrease clonazepam to 0.5mg tid to try to limit sedating/addicting medications and polypharmacy. - Continue duloxetine 120mg daily. (2) Chronic pain associated with significant psychosocial dysfunction A. Discontinue Nucynta as the patient has no one to follow this and inability to get any appointments. B. She has an outpatient appointment with [facility] pain management on March 14 which we hope that she will keep as that may be the person to manage her reports of pain, although it is unlikely she will get there without significant support. C. Encourage heat and ice p.r.n. D. Encourage walking and gentle exercising. 02/25/16: patient appears to be here for an extended stay due to inability to care for self due to her overall combo of mental health and physical condition issues. MD spoke with Dr. Morrison today as patient was requesting consult. Rereviewed challenges for this patient. He recognizes role for Nucynta given her objective pathology (surgical scarring and past nerve conduction studies) but it is not a medication he prescribes. Reviewed that treatment team here doesn't feel she can manage it at home outside of structured setting. Rereviewed pain management consult, only recommended agent, patient has exhausted other options to augment pain control and pain does appear to be increasing in last 24-48 hours and genuinely interfering with participation in programming. Will order 1 time dose under contract with patient. 02/27/16: Recommend Tylenol, Baclofen, gentle stretching, and use of heating pad for management of chronic back pain. 02/29/16: Patient continues to complain of chronic low back pain, and is isolating in her bed with little movement. Will request PT consult to assist with gentle stretching and exercises to assist with chronic pain. 03/01/16: Again reviewed concerns with starting narcotic pain meds, and patient is requesting a pain management consult. Contacted Dr. العراقي to discuss, as this is a complex, chronic pain issue and we are attempting to manage it conservatively without adding medications that have caused medical and psychiatric problems for her in the past several months. Awaiting PT assessment, and encouraging use of Voltaren gel, Baclofen, acetaminophen, and heating pad. Encourage her to be out of bed, moving, and stretching multiple times a day. Awaiting call back from Pain Management to discuss any other acute options while inpatient and awaiting evaluation at [facility] on . - Spoke with Dr. Sun who is familiar with the patient. She has been noncompliant and fired from multiple local offices. He suggested oral Toradol or hydrocodone/APAP 5mg tid, but only in the hospital, as she is not able to safely manage these meds outside the hospital. Could also give Meloxicam ( starting dose 7.5mg daily, can increase to 15mg daily), which is a safer exterminator termite analgesic. She has disc damage but is not a good surgical candidate. 03/03 - 03/05/16: Continue meloxicam, and encourage physical activation. Continue cymbalta. 03/06/16 - Increase neurontin to 1000 mg. TID. - Continue to encourage exercises multiple times per day. 03/10 - pt c/o RUE weakness. reviewed record and she does have h/o pathology at c5- c6 on CT last month. will request input from hospitalist before additional studies ordered 03/11 - appreciate assistance from medical consultation for RUE weakness. Xray and labs looked ok without acute process evident. Will consider cervical/thoracis spine CT with input from hospitalist service. 03/12 - Increase Meloxicam to 15mg daily. Encourage exercise multiple times daily, and participation with PT. Continue Baclofen, Tylenol, Ibuprofen and heat packs prn. Appreciate hospitalist input and will defer need for further imaging of wrist/spine to them. 03/15 - PT consult to work on her hand numbness, which she says is ongoing, despite negative workup by hospitalist. 03/17 - Continue to work with PT. - Appreciate hospitalist's recommendations. - Continue gabapentin, Baclofen, Meloxicam, Tylenol, Ibuprofen (3) Hypothyroidism A. Labs within normal limits. B. Continue home dose of Synthroid. (4) GERD (gastroesophageal reflux disease) A. Continue home dose of Protonix. (5) Opiate dependence Avoiding use of narcotics due to ongoing abuse/misuse/negative outcomes (car accident, falls, etc). (6) TBI (traumatic brain injury) Patient has reported multiple head injuries, and may benefit from evaluation for TBI in the long run if cognitive and other post-concussive symptoms continue after primary mental illness symptoms stabilize. 03/13 - Discussed case with Dr. Morrison, neurology, who does not feel there are any acute neurological concerns and supports exterminator termite psychiatric treatment. (7) History of medication noncompliance Recommend higher level of care such as [facility] for medication oversight, see related social work notes pending possible [facility] assessment on 03/05/16. Discharge / Aftercare Planning Primary Care Physician: Name: [place] [facility] Psychiatrist: Name: Dr Hoffman Therapist: Name: pt did not follow up last time Database Programmer: Name: [facility]: Name: [facility] Phone Number: [phone] Date of Appointment: Apr 11, 2016 Time of Appointment: 2:00 pm Visit Code E&M Code: 98100 Risk Factors Assessment : Yes /single/: Yes Access to guns: No Health problems: Yes Mental Health Diagnoses: Yes Substance use disorders: Yes Previous attempt: Yes (overdosed on a bottle of gabapentin a couple of weeks prior to admission, and did not tell anyone or seek care) Previous attempt;highly lethal: Yes Previous attempt; planned: Yes Previous attempt; didn't tell: Yes Family history of suicide: No Previous psychiatric stay: Yes Hopelessness: Yes Protective Factors Assessment Sikh beliefs: Yes : No Responsible for young children: No Employed: No Stable relationships: No Supportive family: No Good rapport with provider: No Absence of risk factors above: No Data Vital Signs Last 24 Hrs: Date Time Temp Pulse Resp B/P Pulse Ox O2 Delivery O2 Flow Rate FiO2 03/18/16 07:06 36.5 78 16 113/73 85 129/86 03/17/16 18:05 110 135/87 Meds Administered Last 24 Hrs: Meds Administered (Past 24Hrs) Medications (Trade) Dose Ordered Sig/Lisbet Route Start Time Stop Time Status Last Admin Dose Admin Clonazepam (Klonopin Tab) 1 mg TID PO 03/17/16 14:00 04/16/16 13:59 03/18/16 08:44 1 MG
--- NOTE | 2016-03-18 11:26 | Medical Consult ---
Consultation Note Consultation Note CHIEF COMPLAINT: Right wrist pain. HISTORY OF PRESENT ILLNESS: 31-year-old female, right-hand dominant, admitted to the psychiatric unit, for recent hallucinations. She has a history of chronic pain, bulging disks from her cervical and lumbar spine, reports several week history of right hand/wrist pain, with swelling and no obvious injury. She also notes numbness and tingling of the ulnar to a half digits. PAST MEDICAL HISTORY: Chronic pain, head injury, depression, hallucinations, falls, cervicalgia, hypokalemia, mood disorder, multiple drug overdose is, UTI, lethargy, GERD, migraines, hypothyroidism, neurogenic bladder secondary to previous spine surgery. PAST [place]GICAL H[place]ORY[place] [facility] [place]ICATIONS: Noted in the EMR. ALLERGIES: Question of bilateral allergies to erythromycin, Keflex, penicillin, sulfa drugs. FAMILY HISTORY: Depression and anxiety, heart disease, dyslipidemia all with her father. Brother is a type II diabetic. SOCIAL HISTORY: She is on disability. REVIEW OF SYSTEMS: Unremarkable. PHYSICAL EXAM: Patient is in no acute distress breathing easily at 16 breaths per minute. The patient ambulates with a normal gait. They have a flat affect. They weigh 99 kg and are 173 cm tall. Focusing on her right upper extremity, she has 2+ radial pulse, sensation to light touch is decreased over the ulnar 3 digits. Her motor to her median, radial, ulnar, AIN, and PIN is 4/5. She does have some swelling about the dorsum of the hand. She is tender to palpation over the dorsal ulnar aspect of the wrist. The wrist and hand are soft. RADIOGRAPHS: 3 views of the right wrist done March 10 and 2015, show no evidence of fracture or dislocation MRI: Cervical spine, shows cervical spondylosis with herniation at C5-6. IMPRESSION: Right wrist pain and swelling, upper extremity numbness. No evidence of fracture likely etiology sprain versus occult fracture versus inflammatory etiology, concern for cervical etiology for the numbness. PLAN: Patient will be treated conservatively with ice, cockup wrist splint, avoiding heavy lifting. In addition she will be started on a prednisone taper. An EMG nerve conduction study could be obtained to determine if the numbness has a cervical or more peripheral entrapment. May continue with Tylenol for pain control and once the prednisone taper is stopped, may utilize other anti- inflammatory's. We will continue to follow while in the hospital. Thank you for limited to participate in Almendarez's care.
--- NOTE | 2016-03-18 11:29 | Progress Note ---
Subjective Date of Service: Mar 18, 2016. Subjective Pt evaluation today including: conversation w/ patient, physical exam, chart review, lab review, review of studies, conversation w/ farm service consultant, review of inpatient medication list Up and walk, still complaining of right wrist pain and swelling and limit range of motion, Problem List Medical Problems: (1) Anterior chest wall pain Status: Acute (2) Chronic back pain Status: Acute (3) Chronic pain Status: Acute (4) Dehydration Status: Acute (5) Dehydration Status: Acute (6) Delusional disorder Status: Acute (7) Depression Status: Chronic (8) Epigastric abdominal pain Status: Acute (9) Fall Status: Acute (10) Fall Status: Acute (11) Fall Status: Acute (12) Generalized weakness Status: Acute (13) Hallucinations Status: Acute (14) Head injury Status: Acute (15) History of medication noncompliance Status: Chronic (16) Hypokalemia Status: Acute (17) Hypomagnesemia Status: Acute (18) Left sided chest pain Status: Acute (19) Lethargy Status: Acute (20) Mood disorder Status: Acute (21) Multiple drug overdose Status: Acute (22) Narcotic overdose Status: Acute (23) Nausea Status: Acute (24) Neck pain Status: Acute (25) Neck pain Status: Acute (26) Syncope Status: Acute (27) Urinary tract infection Status: Acute (28) Urinary tract infection Status: Acute (29) Vomiting Status: Acute Review of Systems Constitutional: + fatigue, No chills, No fever, No problem reported, No sweats , No weakness, No weight loss Eyes: No diplopia, No discharge, No eye pain, No redness, No worsening of vision ENT: No dental problems, No hearing loss, No nasal symptoms, No sore throat, No tinnitus, No trouble swallowing, No unusual epistaxis Respiratory: No cough, No dyspnea at rest, No dyspnea on exertion, No hemoptysis, No shortness of breath, No sputum, No wheezing Cardiac: No PND, No chest pain, No claudication, No edema, No orthopnea, No palpitations Abdomen: No constipation, No diarrhea, No nausea, No pain, No vomiting Musculoskeletal: No calf pain, No joint pain, No muscle pain, No swelling Female : No abnormal vaginal bleeding, No dysuria, No hematuria, No incontinence, No urinary frequency, No vaginal discharge Neurologic: No balance problems, No memory loss, No numbness/tingling, No paralysis, No vertigo, No weakness Psychiatric: + anxiety, No anhedonism, No depression symptoms, No insomnia, No substance abuse Heme: No abnormal bleeding/bruising, No clotting problems, No night sweats, No swollen lymph nodes Endo: No excessive thirst, No excessive urination, No fatigue Skin: No bleeding, No color change, No itch, No new/changing skin lesions, No rash Objective Vital Signs Date Time Temp Pulse Resp B/P Pulse Ox O2 Delivery O2 Flow Rate FiO2 03/18/16 07:06 36.5 78 16 113/73 85 129/86 03/17/16 18:05 110 135/87 Physical Exam General Appearance: WD/WN, no apparent distress Eyes: normal inspection, PERRL, EOMI, sclerae normal ENT: normal ENT inspection, hearing grossly normal, pharynx normal Neck: supple, no adenopathy, thyroid normal, no JVD, no carotid bruits, trachea midline Respiratory/Chest: chest non-tender, lungs clear, normal breath sounds, no respiratory distress, no accessory muscle use Cardiovascular: regular rate, rhythm, no edema, no gallop, no JVD, no murmur, + tachycardia (mild ) Abdomen: normal bowel sounds, non tender, soft, no organomegaly, no pulsatile mass Extremities: non-tender, normal inspection, no pedal edema, no calf tenderness , normal capillary refill, pelvis stable, + pertinent finding (right wrist, mild swelling/ limited range of motion and mild tender) Neurologic/Psychiatric: continuity tester II-XII nml as tested, no motor/sensory deficits, alert, normal mood/affect, oriented x 3 Skin: normal color, warm/dry, no rash Lymphatic: no adenopathy Assessment and Plan 31 y/o F who is admitted to for acute psychosis and consulted because of having MSK issues. R wrist pain/n/t, LE n/t: Uncertain etiology, trauma vs malingering vs B12/folate def vs hypothyroid (03/10) R wrist XR- no fractures , B12, folate, TSH- WNL ha1c 5.0 (02/07/16) Right hand pain persisting with decreases strength and sensory deficit () MRI of cervical spine due to failed conservative treatment and worsening symptoms, which was done on 03/16/2016, which was unremarkable, checked right upper extremity Doppler ultrasound which was done 2015 , has rule out DVT, I has request orthopedic to see patient, pending input, cont Ibuprofen, heat packs PRN Hypothyroid: hx of synthroid use, last TSH 01/2016 WNL, however pt with multiple medication changes and inappropriate dosing times as above Discussed with nursing Mild tachycardia, heart rate around 100, TSH was normal, which is persistent , like this am still at 110, I am checking echo TBI, acute psychosis: as per psych Patient complaining about numbness in the right arm asso with decreased sensation and finger extension, workup so far is unremarkable, recommend continue watch, referral to neurologist to have nerve conduction studies if needed by pcp Continued [facility] stay due to: home environment unsafe for pt Discharge planning: uncertain
[2016-03-18] MEDS: METHYLPREDNISOLONE 4 MG TAB PO SCH ×3 (13:07→21:06)
--- NOTE | 2016-03-18 18:50 | ECHOCARDIOGRAM REPORT ---
*NOTICE TO RECEIVING CONSTITUTION PARTY AGENCY This information is strictly Confidential and protected under [place] law. [place] law prohibits you from making any further disclosure of this information unless further disclosure is expressly permitted by the written consent of the person to whom it pertains or is authorized by law. A general authorization for the release of medical or other information is not sufficient for this purpose. Hospital accepts no responsibility if the information is made available to any other person, INCLUDING THE PATIENT. Interpretation Summary * Name: ISAÍAS BLAKE Study Date: 03/18/2016 01:28 PM BP: 129/86 mmHg * Patient Location: [facility]\S\S327\S\1 HR: 98 * : 1985 (M/d/yyyy) Gender: Female Height: 68 in * Age: 31 yrs Ethnicity: CA Weight: 218 lb * Ordering Physician: Param Azar * Referring Physician: UNKNOWN * Performed By: Myriam Dodson RCS * * Reason For Study: PERSISTANT TACHY * BSA: 2.1 m2 * -- Conclusions -- * 1. Normal LV size and wall thickness. * 2. Normal LV function. LVEF 55-60%. No regional wall motion abnormalities. * 3. Normal RV size and function. * 4. No significant valvular pathology. * 5. Normal estimated PA and RA pressures. * 6. Compared with prior study on 11/25/2015: No significant changes. Procedure Details * A complete two-dimensional transthoracic echocardiogram was performed (2D, M-mode, Doppler and color flow Doppler). Left Ventricle * The left ventricle is grossly normal size. * There is normal left ventricular wall thickness. * Ejection Fraction = 55-60%. Right Ventricle * The right ventricle is grossly normal size. * The right ventricular systolic function is normal as assessed by tricuspid annular plane systolic excursion (TAPSE) (normal >1.5 cm). Atria * The left atrial size is normal. * Right atrial size is normal. * No ASD detected; PFO is not assessed. Mitral Valve * The mitral valve is grossly normal. * Mitral stenosis is absent. * Significant mitral regurgitation is absent. Tricuspid Valve * The tricuspid valve is not well visualized, but is grossly normal. * There is trace tricuspid regurgitation. * Right ventricular systolic pressure is normal. Aortic Valve * The aortic valve is normal in structure and function. * The aortic valve is trileaflet. * No hemodynamically significant valvular aortic stenosis. * There is no significant aortic regurgitation. Pulmonic Valve * The pulmonary valve is inadequately visualized, but the Doppler data is adequate for interpretation. * There is no pulmonic valvular stenosis. * There is no pulmonic valvular regurgitation. Great Vessels * The aortic root and proximal ascending aorta are normal sized. * Cannot rule aortic coarctation Pericardium/Pleural * There is no pericardial effusion. Great Vessels * Normal inferior vena cava size and collapsability with sniff indicates a normal right atrial pressure of 3 mmHg MMode 2D Measurements and Calculations IVSd 0.94 cm IVSs 1.4 cm LVIDd 4.6 cm LVIDs 3.0 cm LVPWd 1.1 cm LVPWs 1.3 cm IVS/LVPW 0.87 FS 34.7 % EDV(Teich) 97.4 ml ESV(Teich) 35.2 ml EF(Teich) 63.9 % EDV(cubed) 97.5 ml ESV(cubed) 27.2 ml EF(cubed) 72.1 % % IVS thick 44.4 % % LVPW thick 17.4 % LV mass(C)d 161.5 grams LV mass(C)dI 76.2 grams/m\S\2 LV mass(C)s 126.9 grams LV mass(C)sI 59.9 grams/m\S\2 SV(Teich) 62.3 ml SI(Teich) 29.4 ml/m\S\2 SV(cubed) 70.3 ml SI(cubed) 33.2 ml/m\S\2 Ao root diam 3.5 cm Ao root area 9.8 cm\S\2 ACS 1.7 cm LA dimension 3.6 cm LA/Ao 1.0 LVOT diam 1.8 cm LVOT area 2.6 cm\S\2 LVAd ap4 30.8 cm\S\2 LVLd ap4 7.5 cm EDV(MOD-sp4) 100.0 ml EDV(sp4-el) 106.6 ml LVAs ap4 19.5 cm\S\2 LVLs ap4 6.3 cm ESV(MOD-sp4) 49.7 ml ESV(sp4-el) 51.7 ml EF(MOD-sp4) 50.3 % EF(sp4-el) 51.5 % LVAd ap2 30.1 cm\S\2 LVLd ap2 7.8 cm EDV(MOD-sp2) 94.5 ml EDV(sp2-el) 98.9 ml LVAs ap2 17.8 cm\S\2 LVLs ap2 6.0 cm ESV(MOD-sp2) 44.5 ml ESV(sp2-el) 45.1 ml EF(MOD-sp2) 52.9 % EF(sp2-el) 54.4 % LVLd %diff 3.1 % EDV(MOD-bp) 98.0 ml LVLs %diff -5.05 % ESV(MOD-bp) 48.0 ml EF(MOD-bp) 51.0 % SV(MOD-sp4) 50.3 ml SI(MOD-sp4) 23.7 ml/m\S\2 SV(MOD-sp2) 50.0 ml SI(MOD-sp2) 23.6 ml/m\S\2 SV(MOD-bp) 50.0 ml SI(MOD-bp) 23.6 ml/m\S\2 SV(sp4-el) 54.9 ml SI(sp4-el) 25.9 ml/m\S\2 SV(sp2-el) 53.8 ml SI(sp2-el) 25.4 ml/m\S\2 Doppler Measurements and Calculations Ao V2 max 168.7 cm/sec Ao max PG 11.4 mmHg Ao max PG (full) 7.5 mmHg HAWA(V,A) 1.5 cm\S\2 HAWA(V,D) 1.5 cm\S\2 LV V1 max PG 3.9 mmHg LV V1 max 99.2 cm/sec PA V2 max 119.4 cm/sec PA max PG 5.7 mmHg TR max vinnie 230.3 cm/sec
[2016-03-18] MEDS: PALIPERIDONE 3 MG TABCR PO SCH (21:06)
[2016-03-18] MEDS ORDERED: NURSING VERBAL MED ORDER ONE (21:30)
[2016-03-18] MEDS: CLONAZEPAM 0.5 MG TAB PO SCH (22:00)
[2016-03-18] MEDS: hydrOXYzine HCL 25 MG TAB PO PRN (23:05)
[2016-03-19 07:08] VITALS: BP 92/63; PULSE 77; TEMP 36.4
[2016-03-19] MEDS: METHYLPREDNISOLONE 4 MG TAB PO SCH ×3 (07:20→18:03)
[2016-03-19] MEDS: LEVOTHYROXINE 125 MCG TAB PO SCH (07:55)
[2016-03-19] MEDS: DICLOFENAC SOD 1% GEL 100 GM TUBE EXT SCH ×3 (09:00→21:56)
[2016-03-19] MEDS: FLUTICASONE PROPIONATE NA SPR 16 GM BTL NAE SCH (09:00)
[2016-03-19] MEDS: DULOXETINE HCL 60 MG CAP PO SCH (09:44)
[2016-03-19] MEDS: BACLOFEN 10 MG TAB PO SCH ×3 (09:45→21:57)
[2016-03-19] MEDS: CLONAZEPAM 0.5 MG TAB PO SCH ×3 (09:45→21:57)
[2016-03-19] MEDS: MELOXICAM 7.5 MG TAB PO SCH (09:45)
[2016-03-19] MEDS: TAMSULOSIN HCL 0.4 MG CAP PO SCH (09:45)
[2016-03-19] MEDS: GABAPENTIN 400 MG CAP PO SCH ×3 (09:46→21:57)
[2016-03-19] MEDS: GABAPENTIN 100 MG CAP PO SCH ×3 (09:46→21:57)
[2016-03-19] MEDS: PANTOprazole SOD 40 MG TAB PO SCH ×2 (09:47→21:57)
[2016-03-19] MEDS: GLYCOPYRROLATE 1 MG TAB PO SCH ×3 (09:47→21:57)
[2016-03-19] MEDS: AMANTADINE HCL 100 MG CAP PO SCH ×2 (09:47→21:58)
[2016-03-19] MEDS: MAGNESIUM HYDROXIDE SUSP 30 ML UDC PO PRN (10:21)
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
[2016-03-19 13:44] VITALS: BP 122/85; PULSE 102
[2016-03-19] MEDS ORDERED: TRAMADOL HCL 50 MG TAB PO PRN (13:45)
--- NOTE | 2016-03-19 21:14 | Progress Note ---
Subjective Subjective Date of Service: Mar 19, 2016. Pt evaluation today including: conversation w/ patient, physical exam, chart review, review of studies Notes: c/o wrist and chest pain Problem List Medical Problems: (1) Anterior chest wall pain Status: Acute (2) Chronic back pain Status: Acute (3) Chronic pain Status: Acute (4) Dehydration Status: Acute (5) Dehydration Status: Acute (6) Delusional disorder Status: Acute (7) Depression Status: Chronic (8) Epigastric abdominal pain Status: Acute (9) Fall Status: Acute (10) Fall Status: Acute (11) Fall Status: Acute (12) Generalized weakness Status: Acute (13) Hallucinations Status: Acute (14) Head injury Status: Acute (15) History of medication noncompliance Status: Chronic (16) Hypokalemia Status: Acute (17) Hypomagnesemia Status: Acute (18) Left sided chest pain Status: Acute (19) Lethargy Status: Acute (20) Mood disorder Status: Acute (21) Multiple drug overdose Status: Acute (22) Narcotic overdose Status: Acute (23) Nausea Status: Acute (24) Neck pain Status: Acute (25) Neck pain Status: Acute (26) Syncope Status: Acute (27) Urinary tract infection Status: Acute (28) Urinary tract infection Status: Acute (29) Vomiting Status: Acute Review of Systems Constitutional: No fever ENT: No hearing loss Respiratory: No cough Cardiac: + chest pain Abdomen: No pain Neurologic: No memory loss Endo: No fatigue Physical Exam Vital Signs Vital Signs Past 24 Hours: Date Time Temp Pulse Resp B/P Pulse Ox O2 Delivery O2 Flow Rate FiO2 03/19/16 13:44 102 122/85 03/19/16 07:08 36.4 77 16 92/63 Physical Exam: General Appearance: WD/WN, no apparent distress Eyes: bilateral eyes normal inspection ENT: hearing grossly normal, pharynx normal Neck: supple Respiratory/Chest: chest non-tender Cardiovascular: regular rate, rhythm Abdomen: normal bowel sounds Extremities: non-tender Neurologic/Psychiatric: alert Skin: normal color Medications Medications: Current Inpatient Medications Medications (Trade) Dose Ordered Sig/Lisbet Route Start Time Stop Time Status Last Admin Dose Admin Acetaminophen (Tylenol Tab) 650 mg Q4H PRN PO 02/21/16 20:00 03/22/16 19:59 03/17/16 12:20 650 MG Bismuth Subsalicylate (Kaopectate Liqd) 15 ml PRN PRN PO 02/21/16 20:00 03/22/16 19:59 Al Hydroxide/Mg Hydroxide (Maalox Susp) 30 ml Q4H PRN PO 02/21/16 20:00 03/22/16 19:59 Magnesium Hydroxide (Milk Of Magnesia Susp) 30 ml DAILY PRN PO 02/21/16 20:00 03/22/16 19:59 03/19/16 10:21 30 ML Sodium Chloride ([place] Nasal Crozier) PRN PRN NA 02/21/16 20:00 03/22/16 19:59 Hydroxyzine HCl (Vistaril Tab) 50 mg HSZ PRN PO 02/21/16 20:00 03/22/16 19:59 03/18/16 23:05 50 MG Hydroxyzine HCl (Vistaril Tab) 25 mg Q4H PRN PO 02/21/16 20:00 03/22/16 19:59 Baclofen (Lioresal Tab) 10 mg TID PO 02/21/16 21:00 03/22/16 20:59 03/19/16 13:47 10 MG Diclofenac Sodium (Voltaren 1% Top Gel) 1 appln TID EXT 02/21/16 21:00 03/22/16 20:59 03/19/16 13:48 1 APPLN Duloxetine HCl (Cymbalta Cap) 120 mg DAILY PO 02/22/16 09:00 03/23/16 08:59 03/19/16 09:44 120 MG Fluticasone Propionate (Flonase Nasal [place]) 2 sprays DAILY JUSTINO 02/22/16 09:00 03/23/16 08:59 03/18/16 08:43 2 SPRAYS Furosemide (Lasix tab) 40 mg DAILY PRN PO 02/21/16 20:00 03/22/16 19:59 Glycopyrrolate (Robinul Tab) 1 mg TID PO 02/21/16 22:00 03/22/16 21:59 03/19/16 13:48 1 MG Levothyroxine Sodium (Synthroid Tab) 125 mcg DAILYBB PO 02/22/16 08:00 03/23/16 07:59 03/19/16 07:55 125 MCG Ondansetron HCl (Zofran Tab) 4 mg Q6HWA PRN PO 02/21/16 20:00 03/22/16 19:59 03/07/16 11:35 4 MG Pantoprazole Sodium (Protonix Tab) 40 mg BID PO 02/21/16 21:00 03/22/16 20:59 03/19/16 09:47 40 MG Sumatriptan Succinate (Imitrex Tab) 100 mg DAILY PRN PO 02/21/16 20:00 03/22/16 19:59 Tamsulosin HCl (Flomax Cap) 0.8 mg DAILY PO 02/22/16 09:00 03/23/16 08:59 03/19/16 09:45 0.8 MG Haloperidol (Haldol Tab) 5 mg Q6H PRN PO 02/21/16 20:15 03/22/16 20:14 03/08/16 14:57 5 MG Benztropine Mesylate (Cogentin Tab) 0.5 mg Q6H PRN PO 02/21/16 20:15 03/22/16 20:14 Gabapentin (Neurontin Cap) 800 mg TID PO 03/06/16 14:00 04/05/16 13:59 Future hold 03/19/16 13:47 800 MG Gabapentin (Neurontin Cap) 200 mg TID PO 03/06/16 14:00 04/05/16 13:59 Future hold 03/19/16 13:47 200 MG Ibuprofen (Motrin Tab) 800 mg QID PRN PO 03/10/16 18:15 04/09/16 18:14 03/16/16 11:02 800 MG Meloxicam (Mobic Tab) 15 mg QAM PO 03/13/16 09:00 04/12/16 08:59 03/19/16 09:45 15 MG Paliperidone (Invega) 9 mg HS PO 03/12/16 22:00 04/11/16 21:59 03/18/16 21:06 9 MG Lactulose (Chronulac Syrup) 50 gm BID PRN PO 03/16/16 09:00 04/15/16 08:59 03/17/16 11:11 50 GM Gadobutrol (Gadavist) 9 mmol UD PRN IV 03/16/16 12:45 03/20/16 12:44 Methylprednisolone (Medrol Tab) 8 mg HS PO 03/19/16 22:00 03/19/16 22:01 Methylprednisolone (Medrol Tab) 4 mg 07,13,18,21 PO 03/20/16 07:00 03/20/16 21:01 Methylprednisolone (Medrol Tab) 4 mg 07,13,21 PO 03/21/16 07:00 03/21/16 21:01 Methylprednisolone (Medrol Tab) 4 mg 07,21 PO 03/22/16 07:00 03/22/16 21:01 Methylprednisolone (Medrol Tab) 4 mg 07 PO 03/23/16 07:00 03/23/16 07:01 Clonazepam (Klonopin Tab) 0.5 mg TID PO 03/18/16 22:00 04/17/16 21:59 03/19/16 13:47 0.5 MG Amantadine HCl (Symmetrel Cap) 100 mg BID PO 03/19/16 22:00 04/18/16 21:59 Laboratory Data Labs: Last 24 Hours Test 03/19/16 13:36 03/19/16 13:57 Creatine Kinase MB Ratio Creatine Kinase MB 5.3ng/ml Troponin I < 0.015ng/ml Assessment and Plan 31 y/o F who is admitted to for acute psychosis and consulted because of having MSK issues. R wrist pain/n/t, LE n/t: Uncertain etiology, trauma vs malingering vs B12/folate def vs hypothyroid (03/10) R wrist XR- no fractures , B12, folate, TSH- WNL ha1c 5.0 (02/07/16) A 31 yo here with: Right hand pain persisting with decreases strength and sensory deficit (03/16) MRI of cervical spine due to failed conservative treatment and worsening symptoms, which was done on 03/16/2016, which was unremarkable, checked right upper extremity Doppler ultrasound which was done 2015 , has ruled out DVT, orthopedic consult to see patient, pending input, cont Ibuprofen, heat packs PRN chest pain, echo nl, CE nl, EKG normal, likely sec to anxiety/psychogenic vs malingering Hypothyroid: hx of synthroid use, last TSH 01/2016 WNL, however pt with multiple medication changes and inappropriate dosing times as above Discussed with nursing Mild tachycardia, heart rate around 100, TSH was normal, which is persistent , like this am still at 110, I am checking echo TBI, acute psychosis: as per psych Patient complaining about numbness in the right arm associated with decreased sensation and finger extension, workup so far is unremarkable, recommend continue watch, referral to neurologist to have nerve conduction studies if needed by pcp Continued [facility] stay due to: home environment unsafe for pt Discharge planning: uncertain
[2016-03-19] MEDS: PALIPERIDONE 3 MG TABCR PO SCH (21:57)
[2016-03-19] MEDS ORDERED: METHYLPREDNISOLONE 4 MG TAB PO SCH (22:00)
[2016-03-20] MEDS: METHYLPREDNISOLONE 4 MG TAB PO SCH ×4 (06:52→21:13)
[2016-03-20 07:06] VITALS: BP_SYST 134; BP_SYST 145; BP_DIAS 92; BP_DIAS 95; PULSE 81; PULSE 92; TEMP 36.5
[2016-03-20] MEDS: LEVOTHYROXINE 125 MCG TAB PO SCH (08:26)
[2016-03-20] MEDS: MAGNESIUM HYDROXIDE SUSP 30 ML UDC PO PRN (08:26)
[2016-03-20] MEDS: PANTOprazole SOD 40 MG TAB PO SCH ×2 (08:26→21:16)
[2016-03-20] MEDS: TAMSULOSIN HCL 0.4 MG CAP PO SCH (08:26)
[2016-03-20] MEDS: GABAPENTIN 100 MG CAP PO SCH ×3 (08:26→21:15)
[2016-03-20] MEDS: BACLOFEN 10 MG TAB PO SCH ×3 (08:27→21:15)
[2016-03-20] MEDS: AMANTADINE HCL 100 MG CAP PO SCH ×2 (08:27→21:16)
[2016-03-20] MEDS: DULOXETINE HCL 60 MG CAP PO SCH (08:27)
[2016-03-20] MEDS: MELOXICAM 7.5 MG TAB PO SCH (08:27)
[2016-03-20] MEDS: CLONAZEPAM 0.5 MG TAB PO SCH ×3 (08:27→21:15)
[2016-03-20] MEDS: GABAPENTIN 400 MG CAP PO SCH ×3 (08:27→21:15)
[2016-03-20] MEDS: GLYCOPYRROLATE 1 MG TAB PO SCH ×3 (08:27→21:16)
[2016-03-20] MEDS: FLUTICASONE PROPIONATE NA SPR 16 GM BTL NAE SCH (08:28)
[2016-03-20] MEDS: DICLOFENAC SOD 1% GEL 100 GM TUBE EXT SCH ×3 (08:35→21:14)
--- NOTE | 2016-03-20 13:07 | Psychiatric Progress Notes ---
Progress Note Date of Service Mar 20, 2016. Interval History Joyce Almendarez is a 31 year old woman who has been hospitalized here many times previously - most recently November and December 2015. She was admitted on a voluntary basis 02/22/1616 with reports of auditory hallucinations of her [facility]. She was converted to a 304 involuntary commitment on 03/12/16 after several days of refusing to eat, drink or take medications with command auditory hallucinations telling her not to do these things. We are now referring her to [facility]. Chief Complaint "I don't want to go to groups". Subjective Patient was seen & assessed interval progress reviewed with Treatment Team. Staff report she has been very resistant to doing her ADLs, staff had to strongly encourage her to shower, but she came out of the shower and did not appear to have washed herself or her hair. She is refusing groups. She was able to cath herself x 2. She was observed walking laps around the unit today, and was seen in her room. She says she won't go to groups because "I just don't want to." She was angrily demanding narcotics, saying "I need narcotics real bad , I'm in a foul mood, no one will give them to me. I need to see the ortho elizabeth again and he needs to give me narcotics!" She became increasingly agitated and threatened to "flip out, tear shit up." She was advised that assaultive or threatening behavior is not acceptable and that she can talk about her frustrations and process these with staff, but violence is not allowed. She expressed understanding and walked out of her room, returned to walking laps. Review of Systems Medication Side Effects: Possible akathisia Sleep Information Total Hours of Sleep: 6.75 Meal Information Percent of Breakfast Consumed: 100 Percent of Lunch Consumed: 100 Percent of Dinner Consumed: 100 Mental Status Exam During interview pt is: other (irritable, multiple demands, doesn't listen to answer before moving on to her next demand) Appearance: appropriately dressed, disheveled (unkempt, overweight, limited grooming and hygiene.) Eye contact is: good (staring), other (staring) Motor behavior is: psychomotor agitation (restless, shifts weight back and forth when standing) Speech: loud (angry tone), other Affect: irritable, angry, constricted Mood is: other ("foul mood") Thought process: perseveration (asks the same questions multiple times a day) Thought content: preoccupation (wanting pain meds) Suicidal thought are: denied, Plan: denied, Intent: denied Homicidal thoughts are: denied Hallucinations: denies auditory, denies visual Cognition: other (memory and attention impaired) Intelligence estimated to be: average Insight: impaired Judgement: impaired Medication Trials (1) Past Psych Meds Risperdal -- EPS, hypotension, ineffective Remeron - brief trial in hospital, ineffective Ambien propranolol trazodone haldol - muscle jerking, drooling, Parkinsonian symptoms Wellbutrin - worsened agitation and psychosis benzos - abused them Suboxone - for opiate abuse Last Edited By: Patrica Iqbal on Mar 16, 2016 11:31 Impression Remains focused on somatic complaints. All w/u from medicine and ortho have been negative to date. Is refusing to wear the splint ordered by Ortho. Is on a prednisone taper, but continue to wonder about symptom embellishment with a goal to get pain meds. Referral to [facility] is complete, but no word about acceptance/bed date. She has severe and persistent mental illness which is resistant to treatment and prevents her from functioning or living independently outside the hospital. She requires intermodal customer service inpatient treatment. She continues to require intermittent straight cath assisted by staff. We will await word from the [facility]. Appreciate the input of ortho and medicine. Continued Inpatient Care Requires inpatient care due to the severity of her condition and inability to care for herself or provide for her own basic needs outside of a structured environment. Plan (1) Major depressive disorder with psychotic features A. Continue Cymbalta 90 mg daily. B. Continue Haldol 5 mg b.i.d. C. Q. 15 minute checks for safety. D. Reality orientation. E. Encourage participation in group and individual counseling. F. Attempt to establish a meeting with sisterRadha to enlist her support finding alternate housing placement. G. Contact outpatient block and case maker has been involved with her and possibly looking for alternate housing arrangements. Meeting scheduled 02/23 at 8 am. H. Coordinate care with Dr. Hoffman's office whom she says is her outpatient psychiatrist, although she has not seen him lately. 02/22/16: Cymbalta increased to 120mg daily. 02/24/16: patient's psychosis is again improved with restart of Haldol, patient is agreeable to long acting injectable as recognizes med non-compliance has contributed to multiple admissions. Will order 100 mg Haldol IM today with plan to taper oral Haldol over next week. Next dec shot due 03/23/16. Patient is also agreeable to assisted referral. 02/26/16: Decrease oral Haldol from 5mg bid to 5mg qhs. 02/27/16: Meeting with sister and block and case maker. Patient cannot return home, house and truck being sold as she cannot afford them. Adult protective services involved and will explore placement options. 02/28/16: - MA 51 completed - Continue current meds. - Explore use of methylene blue for depression post TBI - Meeting with block and case maker, criminal justice social worker, and rep payee 02/29/16: - Paperwork for rep payee completed - Exploring options for personal care homes, as cannot live independently. 03/02/16 - Add Wellbutrin SR 100 mg daily for mood, energy, cognitive dulling - No documented hx of seizures either inpatient or in OP neuro notes. 03/03/16 and 03/05/16 - Continue current medications, as patient denies side effects, but watch as wellbutrin amplifies cymbalta in vivo. 03/06/16 - Increase Wellbutrin SR to 150 mg. daily - Yun [employer] rep to visit today 03/07/16 - Hallucinations worse, not eating or drinking, nor taking meds. - Restless, likely akathisia - Will convert to Invega starting at 3 mg. daily titrating as tolerated and consider Sustenna - DC Seroquel - CMP due to concerns for hyponatremia or other metabolic derangements since she isn't eating - WILL FILE FOR A 304 as patient has not ability to care for herself and there are, as of yet, no short term options for her. She has repeatedly failed at home and sending her back there even temporarily will set her up for failure. Will refer to [facility]. 03/08/16 - Increase Invega to 6 mg. HS - The patient will require individual attention in order to get to eat and drink 03/08/16 - Add Klonopin 1 mg. BID - Consider increasing Invega to 9 mg. HS tomorrow - Reduce Wellbutrin SR to 100 mg. in the event it has been worsening her condition. - Ask Dr. Morrison or neuro career technical education instructor to weigh in regarding the direction her care should take 03/10 - CMP, CBC, TSH, vit B12 and folate all normal - encourage PO intake 03/11 - unable to effectively reality test - Reviewed tx hx. Efforts in past to reduce medication burden possibly helpful in brightening affect but unclear if this may have contributed to exacerbation of psychosis. She had haldol decanoate earlier this month and will defer further dose escalation of antipsychotic for now as she appears so motorically retarded. - Will check duloxetine level to see if there might be room for more aggressive antidepressant tx which ultimately may help to reduce psychosis 03/12 - 304 granted. - Refer to [facility]. - Increase Invega to 9mg daily. - Continue Wellbutrin, SR 100mg qam, clonazepam 1mg bid, duloxetine 120mg qam. 03/14 - DC Wellbutrin due to concerns it worsened hallucinations and is contributing to agitation - Amantadine 100 mg. daily for restlessness and for procognitive benefits. 03/17 - 03/18 - Continue Invega 9mg, as psychosis has improved. - Decrease clonazepam to 0.5mg tid to try to limit sedating/addicting medications and polypharmacy. - Continue duloxetine 120mg daily. 03/19 - Increase amantadine to 100mg bid (2) Chronic pain associated with significant psychosocial dysfunction A. Discontinue Nucynta as the patient has no one to follow this and inability to get any appointments. B. She has an outpatient appointment with [facility] pain management on March 14 which we hope that she will keep as that may be the person to manage her reports of pain, although it is unlikely she will get there without significant support. C. Encourage heat and ice p.r.n. D. Encourage walking and gentle exercising. 02/25/16: patient appears to be here for an extended stay due to inability to care for self due to her overall combo of mental health and physical condition issues. MD spoke with Dr. Morrison today as patient was requesting consult. Rereviewed challenges for this patient. He recognizes role for Nucynta given her objective pathology (surgical scarring and past nerve conduction studies) but it is not a medication he prescribes. Reviewed that treatment team here doesn't feel she can manage it at home outside of structured setting. Rereviewed pain management consult, only recommended agent, patient has exhausted other options to augment pain control and pain does appear to be increasing in last 24-48 hours and genuinely interfering with participation in programming. Will order 1 time dose under contract with patient. 02/27/16: Recommend Tylenol, Baclofen, gentle stretching, and use of heating pad for management of chronic back pain. 02/29/16: Patient continues to complain of chronic low back pain, and is isolating in her bed with little movement. Will request PT consult to assist with gentle stretching and exercises to assist with chronic pain. 03/01/16: Again reviewed concerns with starting narcotic pain meds, and patient is requesting a pain management consult. Contacted Dr. العراقي to discuss, as this is a complex, chronic pain issue and we are attempting to manage it conservatively without adding medications that have caused medical and psychiatric problems for her in the past several months. Awaiting PT assessment, and encouraging use of Voltaren gel, Baclofen, acetaminophen, and heating pad. Encourage her to be out of bed, moving, and stretching multiple times a day. Awaiting call back from Pain Management to discuss any other acute options while inpatient and awaiting evaluation at [facility] on . - Spoke with Dr. Sun who is familiar with the patient. She has been noncompliant and fired from multiple local offices. He suggested oral Toradol or hydrocodone/APAP 5mg tid, but only in the hospital, as she is not able to safely manage these meds outside the hospital. Could also give Meloxicam ( starting dose 7.5mg daily, can increase to 15mg daily), which is a safer jail analgesic. She has disc damage but is not a good surgical candidate. 03/03 - 03/05/16: Continue meloxicam, and encourage physical activation. Continue cymbalta. 03/06/16 - Increase neurontin to 1000 mg. TID. - Continue to encourage exercises multiple times per day. 03/10 - pt c/o RUE weakness. reviewed record and she does have h/o pathology at c5- c6 on CT last month. will request input from hospitalist before additional studies ordered 03/11 - appreciate assistance from medical consultation for RUE weakness. Xray and labs looked ok without acute process evident. Will consider cervical/thoracis spine CT with input from hospitalist service. 03/12 - Increase Meloxicam to 15mg daily. Encourage exercise multiple times daily, and participation with PT. Continue Baclofen, Tylenol, Ibuprofen and heat packs prn. Appreciate hospitalist input and will defer need for further imaging of wrist/spine to them. 03/15 - PT consult to work on her hand numbness, which she says is ongoing, despite negative workup by hospitalist. 03/17 - Continue to work with PT. - Appreciate hospitalist's recommendations. - Continue gabapentin, Baclofen, Meloxicam, Tylenol, Ibuprofen (3) Hypothyroidism A. Labs within normal limits. B. Continue home dose of Synthroid. (4) GERD (gastroesophageal reflux disease) A. Continue home dose of Protonix. (5) Opiate dependence Avoiding use of narcotics due to ongoing abuse/misuse/negative outcomes (car accident, falls, etc). (6) TBI (traumatic brain injury) Patient has reported multiple head injuries, and may benefit from evaluation for TBI in the long run if cognitive and other post-concussive symptoms continue after primary mental illness symptoms stabilize. 03/13 - Discussed case with Dr. Morrison, neurology, who does not feel there are any acute neurological concerns and supports inter[employer] customer service psychiatric treatment. (7) History of medication noncompliance Recommend higher level of care such as [facility] for medication oversight, see related social work notes pending possible [facility] assessment on 03/05/16. Discharge / Aftercare Planning [place] Care Physician: [place] [facility] [place]iatrist: Name: Dr Hoffman Therapist: Name: pt did not follow up last time Armature Repairer: Name: BRUNILDA [facility]: Name: [facility] Phone Number: [phone] Date of Appointment: Apr 11, 2016 Time of Appointment: 2:00 pm Visit Code E&M Code: 02006 Risk Factors Assessment : Yes /single/: Yes Access to guns: No Health problems: Yes Mental Health Diagnoses: Yes Substance use disorders: Yes Previous attempt: Yes (overdosed on a bottle of gabapentin a couple of weeks prior to admission, and did not tell anyone or seek care) Previous attempt;highly lethal: Yes Previous attempt; planned: Yes Previous attempt; didn't tell: Yes Family history of suicide: No Previous psychiatric stay: Yes Hopelessness: Yes Protective Factors Assessment [employer] beliefs: Yes : No Responsible for young children: No Employed: No Stable relationships: No Supportive family: No Good rapport with provider: No Absence of risk factors above: No Data Vital Signs Last 24 Hrs: Date Time Temp Pulse Resp B/P Pulse Ox O2 Delivery O2 Flow Rate FiO2 03/20/16 07:06 36.5 81 16 134/92 92 145/95 03/19/16 13:44 102 122/85 Meds Administered Last 24 Hrs: Meds Administered (Past 24Hrs) Medications (Trade) Dose Ordered Sig/Lisbet Route Start Time Stop Time Status Last Admin Dose Admin Methylprednisolone (Medrol Tab) 8 mg 1300,1800,2100 PO 03/18/16 13:30 03/18/16 21:01 DC 03/18/16 21:06 8 MG Methylprednisolone (Medrol Tab) 4 mg 07,13,18 PO 03/19/16 07:00 03/19/16 18:01 DC 03/19/16 18:03 4 MG Methylprednisolone (Medrol Tab) 8 mg HS PO 03/19/16 22:00 03/19/16 22:01 DC 03/19/16 21:57 8 MG Methylprednisolone (Medrol Tab) 4 mg 07,13,18,21 PO 03/20/16 07:00 03/20/16 21:01 03/20/16 06:52 4 MG Clonazepam (Klonopin Tab) 0.5 mg TID PO 03/18/16 22:00 04/17/16 21:59 03/20/16 08:27 0.5 MG Amantadine HCl (Symmetrel Cap) 100 mg BID PO 03/19/16 22:00 04/18/16 21:59 03/20/16 08:27 100 MG Lab Results Last 24 Hrs: Last 24 Hours Test 03/19/16 13:36 03/19/16 13:57 03/19/16 21:36 03/19/16 22:40 Creatine Kinase MB Ratio Creatine Kinase MB 5.3ng/ml 5.9ng/ml Troponin I < 0.015ng/ml < 0.015ng/ml
--- NOTE | 2016-03-20 16:19 | Progress Note ---
Subjective Subjective Date of Service: Mar 20, 2016. Pt evaluation today including: conversation w/ patient, physical exam, chart review, review of studies, conversation w/ creative consultant (piter), review of inpatient medication list Notes: c/o wrist pain and demands narcotics Problem List Medical Problems: (1) Anterior chest wall pain Status: Acute (2) Chronic back pain Status: Acute (3) Chronic pain Status: Acute (4) Dehydration Status: Acute (5) Dehydration Status: Acute (6) Delusional disorder Status: Acute (7) Depression Status: Chronic (8) Epigastric abdominal pain Status: Acute (9) Fall Status: Acute (10) Fall Status: Acute (11) Fall Status: Acute (12) Generalized weakness Status: Acute (13) Hallucinations Status: Acute (14) Head injury Status: Acute (15) History of medication noncompliance Status: Chronic (16) Hypokalemia Status: Acute (17) Hypomagnesemia Status: Acute (18) Left sided chest pain Status: Acute (19) Lethargy Status: Acute (20) Mood disorder Status: Acute (21) Multiple drug overdose Status: Acute (22) Narcotic overdose Status: Acute (23) Nausea Status: Acute (24) Neck pain Status: Acute (25) Neck pain Status: Acute (26) Syncope Status: Acute (27) Urinary tract infection Status: Acute (28) Urinary tract infection Status: Acute (29) Vomiting Status: Acute Review of Systems Constitutional: No fever ENT: No hearing loss Respiratory: No cough Cardiac: No chest pain Abdomen: No pain Neurologic: No memory loss Endo: No fatigue Physical Exam Vital Signs Vital Signs Past 24 Hours: Date Time Temp Pulse Resp B/P Pulse Ox O2 Delivery O2 Flow Rate FiO2 03/20/16 07:06 36.5 81 16 134/92 92 145/95 Physical Exam: General Appearance: WD/WN, no apparent distress Eyes: bilateral eyes normal inspection ENT: hearing grossly normal, pharynx normal Neck: supple, no JVD Respiratory/Chest: chest non-tender, no respiratory distress Cardiovascular: no edema, no murmur Abdomen: non tender, soft Extremities: normal range of motion, + pertinent finding (does not wear right arm sling) Neurologic/Psychiatric: alert Skin: normal color Medications Medications: Current Inpatient Medications Medications (Trade) Dose Ordered Sig/[place] Route Start Time Stop Time Status Last Admin Dose Admin Acetaminophen (Tylenol Tab) 650 mg Q4H PRN PO 02/21/16 20:00 03/22/16 19:59 03/17/16 12:20 650 MG Bismuth Subsalicylate (Kaopectate Liqd) 15 ml PRN PRN PO 02/21/16 20:00 03/22/16 19:59 Al Hydroxide/Mg Hydroxide (Maalox Susp) 30 ml Q4H PRN PO 02/21/16 20:00 03/22/16 19:59 Magnesium Hydroxide (Milk Of Magnesia Susp) 30 ml DAILY PRN PO 02/21/16 20:00 03/22/16 19:59 03/20/16 08:26 30 ML Sodium Chloride ([place] Nasal [place]) PRN PRN NA 02/21/16 20:00 03/22/16 19:59 Hydroxyzine HCl (Vistaril Tab) 50 mg HSZ PRN PO 02/21/16 20:00 03/22/16 19:59 03/18/16 23:05 50 MG Hydroxyzine HCl (Vistaril Tab) 25 mg Q4H PRN PO 02/21/16 20:00 03/22/16 19:59 Baclofen (Lioresal Tab) 10 mg TID PO 02/21/16 21:00 03/22/16 20:59 03/20/16 13:52 10 MG Diclofenac Sodium (Voltaren 1% Top Gel) 1 appln TID EXT 02/21/16 21:00 03/22/16 20:59 03/20/16 13:52 1 APPLN Duloxetine HCl (Cymbalta Cap) 120 mg DAILY PO 02/22/16 09:00 03/23/16 08:59 03/20/16 08:27 120 MG Fluticasone Propionate (Flonase Nasal [place]) 2 sprays DAILY JUSTINO 02/22/16 09:00 03/23/16 08:59 03/18/16 08:43 2 SPRAYS Furosemide (Lasix tab) 40 mg DAILY PRN PO 02/21/16 20:00 03/22/16 19:59 Glycopyrrolate (Robinul Tab) 1 mg TID PO 02/21/16 22:00 03/22/16 21:59 03/20/16 13:51 1 MG Levothyroxine Sodium (Synthroid Tab) 125 mcg DAILYBB PO 02/22/16 08:00 03/23/16 07:59 03/20/16 08:26 125 MCG Ondansetron HCl (Zofran Tab) 4 mg Q6HWA PRN PO 02/21/16 20:00 03/22/16 19:59 03/07/16 11:35 4 MG Pantoprazole Sodium (Protonix Tab) 40 mg BID PO 02/21/16 21:00 03/22/16 20:59 03/20/16 08:26 40 MG Sumatriptan Succinate (Imitrex Tab) 100 mg DAILY PRN PO 02/21/16 20:00 03/22/16 19:59 Tamsulosin HCl (Flomax Cap) 0.8 mg DAILY PO 02/22/16 09:00 03/23/16 08:59 03/20/16 08:26 0.8 MG Haloperidol (Haldol Tab) 5 mg Q6H PRN PO 02/21/16 20:15 03/22/16 20:14 03/08/16 14:57 5 MG Benztropine Mesylate (Cogentin Tab) 0.5 mg Q6H PRN PO 02/21/16 20:15 03/22/16 20:14 Gabapentin (Neurontin Cap) 800 mg TID PO 03/06/16 14:00 04/05/16 13:59 Future hold 03/20/16 13:51 800 MG Gabapentin (Neurontin Cap) 200 mg TID PO 03/06/16 14:00 04/05/16 13:59 Future hold 03/20/16 13:51 200 MG Ibuprofen (Motrin Tab) 800 mg QID PRN PO 03/10/16 18:15 04/09/16 18:14 03/16/16 11:02 800 MG Meloxicam (Mobic Tab) 15 mg QAM PO 03/13/16 09:00 04/12/16 08:59 03/20/16 08:27 15 MG Paliperidone (Invega) 9 mg HS PO 03/12/16 22:00 04/11/16 21:59 03/19/16 21:57 9 MG Lactulose (Chronulac Syrup) 50 gm BID PRN PO 03/16/16 09:00 04/15/16 08:59 03/17/16 11:11 50 GM Methylprednisolone (Medrol Tab) 4 mg 07,13,18,21 PO 03/20/16 07:00 03/20/16 21:01 03/20/16 13:52 4 MG Methylprednisolone (Medrol Tab) 4 mg 07,13,21 PO 03/21/16 07:00 03/21/16 21:01 Methylprednisolone (Medrol Tab) 4 mg 07,21 PO 03/22/16 07:00 03/22/16 21:01 Methylprednisolone (Medrol Tab) 4 mg 07 PO 03/23/16 07:00 03/23/16 07:01 Clonazepam (Klonopin Tab) 0.5 mg TID PO 03/18/16 22:00 04/17/16 21:59 03/20/16 13:51 0.5 MG Amantadine HCl (Symmetrel Cap) 100 mg BID PO 03/19/16 22:00 04/18/16 21:59 03/20/16 08:27 100 MG Laboratory Data Labs: Last 24 Hours Test 03/19/16 21:36 03/19/16 22:40 Creatine Kinase MB Ratio Creatine Kinase MB 5.9ng/ml Troponin I < 0.015ng/ml Assessment and Plan 31 y/o F who is admitted to for acute psychosis and consulted because of having MSK issues. R wrist pain/n/t, LE n/t: Uncertain etiology, trauma vs malingering vs B12/folate def vs hypothyroid (03/10) R wrist XR- no fractures , B12, folate, TSH- WNL ha1c 5.0 (02/07/16) Right hand pain persisting with decreases strength and sensory deficit (03/16) MRI of cervical spine due to failed conservative treatment and worsening symptoms, which was done on 03/16/2016, which was unremarkable, checked right upper extremity Doppler ultrasound which was done 03/17/2016 , has ruled out DVT, orthopedic consulted to see patient, EMG is ordered, cont Ibuprofen, heat packs PRN chest pain, echo nl, CE nl, EKG normal, likely sec to anxiety/psychogenic vs malingering Hypothyroid: hx of synthroid use, last TSH 01/2016 WNL, however pt with multiple medication changes and inappropriate dosing times as above Discussed with nursing Mild tachycardia, heart rate around 100, TSH was normal, which is persistent, likely secondary to anxiety or pain? TBI, acute psychosis: as per psych Patient complaining about numbness in the right arm associated with decreased sensation and finger extension, workup so far is unremarkable, recommend continue watch, referral to neurologist to have nerve conduction studies if needed by pcp We will sign off, call with questions. thank you Continued [facility] stay due to: home environment unsafe for pt Discharge planning: uncertain
[2016-03-20] MEDS: IBUPROFEN 800 MG TAB PO PRN (19:52)
[2016-03-20] MEDS: PALIPERIDONE 3 MG TABCR PO SCH (21:15)
[2016-03-20] MEDS: hydrOXYzine HCL 25 MG TAB PO PRN (23:49)
[2016-03-21] MEDS: hydrOXYzine HCL 25 MG TAB PO PRN ×3 (00:33→22:15)
[2016-03-21] MEDS: LEVOTHYROXINE 125 MCG TAB PO SCH (06:48)
[2016-03-21] MEDS: METHYLPREDNISOLONE 4 MG TAB PO SCH ×3 (06:48→21:32)
[2016-03-21 07:03] VITALS: BP_SYST 137; BP_DIAS 80; BP_DIAS 90; PULSE 67; PULSE 94; TEMP 36.2
[2016-03-21] MEDS: FLUTICASONE PROPIONATE NA SPR 16 GM BTL NAE SCH (09:00)
[2016-03-21] MEDS: AMANTADINE HCL 100 MG CAP PO SCH (10:13)
[2016-03-21] MEDS: GLYCOPYRROLATE 1 MG TAB PO SCH ×3 (10:13→21:34)
[2016-03-21] MEDS: BACLOFEN 10 MG TAB PO SCH ×3 (10:13→21:33)
[2016-03-21] MEDS: DICLOFENAC SOD 1% GEL 100 GM TUBE EXT SCH ×3 (10:13→21:33)
[2016-03-21] MEDS: DULOXETINE HCL 60 MG CAP PO SCH (10:13)
[2016-03-21] MEDS: CLONAZEPAM 0.5 MG TAB PO SCH ×3 (10:14→21:33)
[2016-03-21] MEDS: TAMSULOSIN HCL 0.4 MG CAP PO SCH (10:14)
[2016-03-21] MEDS: PANTOprazole SOD 40 MG TAB PO SCH ×2 (10:14→21:34)
[2016-03-21] MEDS: GABAPENTIN 400 MG CAP PO SCH ×3 (10:14→21:34)
[2016-03-21] MEDS: GABAPENTIN 100 MG CAP PO SCH ×3 (10:14→21:34)
[2016-03-21] MEDS: MELOXICAM 7.5 MG TAB PO SCH (10:14)
[2016-03-21] MEDS: IBUPROFEN 800 MG TAB PO PRN (10:16)
[2016-03-21] MEDS ORDERED: PROPRANOLOL HCL 80 MG TAB PO ONE (11:25)
--- NOTE | 2016-03-21 11:25 | Psychiatric Progress Notes ---
Progress Note Date of Service Mar 21, 2016. Interval History Joyce Almendarez is a 31 year old woman who has been hospitalized here many times previously - most recently November and December 2015. She was admitted on a voluntary basis 02/22/1616 with reports of auditory hallucinations of her father wanting her to come to [facility] with him. She was converted to a 304 involuntary commitment on 03/12/16 after several days of refusing to eat, drink or take medications with command auditory hallucinations telling her not to do these things. We are now referring her to [facility]. Chief Complaint "Can I have a lidoderm patch?". Subjective Patient was seen & assessed interval progress reviewed with Treatment Team. The patient has many somatic complaints today. She says that she is restless, unable to sit still, unrelieved by amantadine. She complains that her rt hand is unusable (staff has observed her to use it to open doors and eat), but won't wear the wrist splint ordered by ortho. She has been walking a lot in an effort to lose weight and is limiting her intake, although with supervision through dietary. She says that she is not hearing her father's voice today, but admitted on nights that she was hearing him telling her to "just lay down". She is frustrated about being in the hospital and says that she punched the window in frustration (no evidence of swelling, deformity). She is also frustrated with her sister Radha who she feels has abandoned her. She says that Radha will not answer her phone calls, and when she has visited it has been for very brief periods saying she doesn't have time to stay longer. "I need my family. I'm doing everything that she wants me to do.". She says that her mood is low but denies SI/HI. Denies visual hallucinations. Review of Systems Constitutional: No chills, No fatigue, No fever, No problem reported, No sweats , No weakness, No weight loss ENT: No dental problems, No hearing loss, No nasal symptoms, No problem reported, No sore throat, No tinnitus, No trouble swallowing, No unusual epistaxis Respiratory: No cough, No dyspnea at rest, No dyspnea on exertion, No hemoptysis, No problem reported, No shortness of breath, No sputum, No wheezing Cardiovascular: No PND, No chest pain, No claudication, No edema, No orthopnea , No palpitations, No problem reported Abdomen: No GI bleeding, No constipation, No diarrhea, No nausea, No pain, No problem reported, No vomiting Musculoskeletal: + problem reported (back pain, rt hand pain) Neurologic: + numbness/tingling (rt hand) Psychiatric: + anxiety, + depression symptoms Integumentary: No bleeding, No color change, No itch, No new/changing skin lesions, No problem reported, No rash Medication Side Effects: Possible akathisia Sleep Information Total Hours of Sleep: 6.75 Meal Information Percent of Breakfast Consumed: 75 Percent of Lunch Consumed: 75 Percent of Dinner Consumed: 100 Mental Status Exam During interview pt is: cooperative, other (irritable, multiple demands, doesn' t listen to answer before moving on to her next demand) Appearance: appropriately dressed, disheveled Eye contact is: good (staring), other (staring) Motor behavior is: psychomotor agitation (restless, shifts weight back and forth when standing, with bradykinetic arms) Speech: normal in rate, rhythm & volume, other Affect: flat Mood is: depressed, anxious Thought process: perseveration (regarding somatic complaints) Thought content: preoccupation (wanting pain meds) Suicidal thought are: denied, Plan: denied, Intent: denied Homicidal thoughts are: denied Hallucinations: auditory, denies visual Cognition: other (memory and attention impaired) Intelligence estimated to be: average Insight: impaired Judgement: impaired Medication Trials (1) Past Psych Meds Risperdal -- EPS, hypotension, ineffective Remeron - brief trial in hospital, ineffective Ambien propranolol trazodone haldol - muscle jerking, drooling, Parkinsonian symptoms Wellbutrin - worsened agitation and psychosis benzos - abused them Suboxone - for opiate abuse Last Edited By: Patrica Iqbal on Mar 16, 2016 11:31 Impression Remains focused on somatic complaints. All w/u from medicine and ortho have been negative to date. Is refusing to wear the splint ordered by Ortho. Is on a prednisone taper, but continue to wonder about symptom embellishment with a goal to get pain meds. Referral to [facility] is complete, but no word about acceptance/bed date. She has severe and persistent mental illness which is resistant to treatment and prevents her from functioning or living independently outside the hospital. 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 She continues to require intermittent straight cath assisted by staff. We will await word from the [facility]. Appreciate the input of ortho and medicine. Will order Lidoderm patch for back pain as was previously recommended by pain management. Will also DC amantadine in favor of inderal 40 mg daily to target akathesia Continued Inpatient Care Requires inpatient care due to the severity of her condition and inability to care for herself or provide for her own basic needs outside of a structured environment. Plan (1) Major depressive disorder with psychotic features A. Continue Cymbalta 90 mg daily. B. Continue Haldol 5 mg b.i.d. C. Q. 15 minute checks for safety. D. Reality orientation. E. Encourage participation in group and individual counseling. F. Attempt to establish a meeting with Radha to enlist her support finding alternate housing placement. G. Contact outpatient clinical case manager has been involved with her and possibly looking for alternate housing arrangements. Meeting scheduled 02/23 at 8 am. H. Coordinate care with Dr. Hoffman's office whom she says is her outpatient psychiatrist, although she has not seen him lately. 02/22/16: Cymbalta increased to 120mg daily. 02/24/16: patient's psychosis is again improved with restart of Haldol, patient is agreeable to long acting injectable as recognizes med non-compliance has contributed to multiple admissions. Will order 100 mg Haldol IM today with plan to taper oral Haldol over next week. Next dec shot due 03/23/16. Patient is also agreeable to [facility] referral. 02/26/16: Decrease oral Haldol from 5mg bid to 5mg qhs. 02/27/16: Meeting with sister and clinical case manager. Patient cannot return home, house and truck being sold as she cannot afford them. Adult protective services involved and will explore placement options. 02/28/16: - MA 51 completed - Continue current meds. - Explore use of methylene blue for depression post TBI - Meeting with clinical case manager, social media strategist, and rep payee 02/29/16: - Paperwork for rep payee completed - Exploring options for personal care homes, as cannot live independently. 03/02/16 - Add Wellbutrin SR 100 mg daily for mood, energy, cognitive dulling - No documented hx of seizures either inpatient or in OP neuro notes. 03/03/16 and 03/05/16 - Continue current medications, as patient denies side effects, but watch as wellbutrin amplifies cymbalta in vivo. 03/06/16 - Increase Wellbutrin SR to 150 mg. daily - [employer] [facility] rep to visit today 03/07/16 - Hallucinations worse, not eating or drinking, nor taking meds. - Restless, likely akathisia - Will convert to Invega starting at 3 mg. daily titrating as tolerated and consider Sustenna - DC Seroquel - CMP due to concerns for hyponatremia or other metabolic derangements since she isn't eating - WILL FILE FOR A 304 as patient has not ability to care for herself and there are, as of yet, no short term options for her. She has repeatedly failed at home and sending her back there even temporarily will set her up for failure. Will refer to [facility]. 03/08/16 - Increase Invega to 6 mg. HS - The patient will require individual attention in order to get to eat and drink 03/08/16 - Add Klonopin 1 mg. BID - Consider increasing Invega to 9 mg. HS tomorrow - Reduce Wellbutrin SR to 100 mg. in the event it has been worsening her condition. - Ask Dr. Morrison or neuro applications intern to weigh in regarding the direction her care should take 03/10 - CMP, CBC, TSH, vit B12 and folate all normal - encourage PO intake 03/11 - unable to effectively reality test - Reviewed tx hx. Efforts in past to reduce medication burden possibly helpful in brightening affect but unclear if this may have contributed to exacerbation of psychosis. She had haldol decanoate earlier this month and will defer further dose escalation of antipsychotic for now as she appears so motorically retarded. - Will check duloxetine level to see if there might be room for more aggressive antidepressant tx which ultimately may help to reduce psychosis 03/12 - 304 granted. - Refer to [facility]. - Increase Invega to 9mg daily. - Continue Wellbutrin, SR 100mg qam, clonazepam 1mg bid, duloxetine 120mg qam. 03/14 - DC Wellbutrin due to concerns it worsened hallucinations and is contributing to agitation - Amantadine 100 mg. daily for restlessness and for procognitive benefits. 03/17 - 03/18 - Continue Invega 9mg, as psychosis has improved. - Decrease clonazepam to 0.5mg tid to try to limit sedating/addicting medications and polypharmacy. - Continue duloxetine 120mg daily. 03/19 - Increase amantadine to 100mg bid 03/21 - DC Amantadine - Start Inderal 40 mg. daily for akathesia (2) Chronic pain associated with significant psychosocial dysfunction A. Discontinue Nucynta as the patient has no one to follow this and inability to get any appointments. B. She has an outpatient appointment with [facility] pain management on March 14 which we hope that she will keep as that may be the person to manage her reports of pain, although it is unlikely she will get there without significant support. C. Encourage heat and ice p.r.n. D. Encourage walking and gentle exercising. 02/25/16: patient appears to be here for an extended stay due to inability to care for self due to her overall combo of mental health and physical condition issues. MD spoke with Dr. Morrison today as patient was requesting consult. Rereviewed challenges for this patient. He recognizes role for Nucynta given her objective pathology (surgical scarring and past nerve conduction studies) but it is not a medication he prescribes. Reviewed that treatment team here doesn't feel she can manage it at home outside of structured setting. Rereviewed pain management consult, only recommended agent, patient has exhausted other options to augment pain control and pain does appear to be increasing in last 24-48 hours and genuinely interfering with participation in programming. Will order 1 time dose under contract with patient. 02/27/16: Recommend Tylenol, Baclofen, gentle stretching, and use of heating pad for management of chronic back pain. 02/29/16: Patient continues to complain of chronic low back pain, and is isolating in her bed with little movement. Will request PT consult to assist with gentle stretching and exercises to assist with chronic pain. 03/01/16: Again reviewed concerns with starting narcotic pain meds, and patient is requesting a pain management consult. Contacted Dr. العراقي to discuss, as this is a complex, chronic pain issue and we are attempting to manage it conservatively without adding medications that have caused medical and psychiatric problems for her in the past several months. Awaiting PT assessment, and encouraging use of Voltaren gel, Baclofen, acetaminophen, and heating pad. Encourage her to be out of bed, moving, and stretching multiple times a day. Awaiting call back from Pain Management to discuss any other acute options while inpatient and awaiting evaluation at [facility] on . - Spoke with Dr. Sun who is familiar with the patient. She has been noncompliant and fired from multiple local offices. He suggested oral Toradol or hydrocodone/APAP 5mg tid, but only in the hospital, as she is not able to safely manage these meds outside the hospital. Could also give Meloxicam ( starting dose 7.5mg daily, can increase to 15mg daily), which is a safer usp analgesic. She has disc damage but is not a good surgical candidate. 03/03 - 03/05/16: Continue meloxicam, and encourage physical activation. Continue cymbalta. 03/06/16 - Increase neurontin to 1000 mg. TID. - Continue to encourage exercises multiple times per day. 03/10 - pt c/o RUE weakness. reviewed record and she does have h/o pathology at c5- c6 on CT last month. will request input from hospitalist before additional studies ordered 03/11 - appreciate assistance from medical consultation for RUE weakness. Xray and labs looked ok without acute process evident. Will consider cervical/thoracis spine CT with input from hospitalist service. 03/12 - Increase Meloxicam to 15mg daily. Encourage exercise multiple times daily, and participation with PT. Continue Baclofen, Tylenol, Ibuprofen and heat packs prn. Appreciate hospitalist input and will defer need for further imaging of wrist/spine to them. 03/15 - PT consult to work on her hand numbness, which she says is ongoing, despite negative workup by hospitalist. 03/17 - Continue to work with PT. - Appreciate hospitalist's recommendations. - Continue gabapentin, Baclofen, Meloxicam, Tylenol, Ibuprofen (3) Hypothyroidism A. Labs within normal limits. B. Continue home dose of Synthroid. (4) GERD (gastroesophageal reflux disease) A. Continue home dose of Protonix. (5) Opiate dependence Avoiding use of narcotics due to ongoing abuse/misuse/negative outcomes (car accident, falls, etc). (6) TBI (traumatic brain injury) Patient has reported multiple head injuries, and may benefit from evaluation for TBI in the long run if cognitive and other post-concussive symptoms continue after primary mental illness symptoms stabilize. 03/13 - Discussed case with Dr. Morrison, neurology, who does not feel there are any acute neurological concerns and supports terminal press operator psychiatric treatment. (7) History of medication noncompliance Recommend higher level of care such as [facility] for medication oversight, see related social work notes pending possible [facility] assessment on 03/05/16. Discharge / Aftercare Planning Primary Care Physician: Name: Dr Benjamin at [facility] Psychiatrist: Name: Dr Hoffman Therapist: Name: pt did not follow up last time Macerator Operator: Name: BRUNILDA [facility]: Name: [facility] Phone Number: [phone] Date of Appointment: Apr 11, 2016 Time of Appointment: 2:00 pm Visit Code E&M Code: 52589 Risk Factors Assessment : Yes /single/: Yes Access to guns: No Health problems: Yes Mental Health Diagnoses: Yes Substance use disorders: Yes Previous attempt: Yes (overdosed on a bottle of gabapentin a couple of weeks prior to admission, and did not tell anyone or seek care) Previous attempt;highly lethal: Yes Previous attempt; planned: Yes Previous attempt; didn't tell: Yes Family history of suicide: No Previous psychiatric stay: Yes Hopelessness: Yes Protective Factors Assessment Restorationist beliefs: Yes : No Responsible for young children: No Employed: No Stable relationships: No Supportive family: No Good rapport with provider: No Absence of risk factors above: No Data Vital Signs Last 24 Hrs: Date Time Temp Pulse Resp B/P Pulse Ox O2 Delivery O2 Flow Rate FiO2 03/21/16 07:03 36.2 67 16 137/80 94 137/90 Meds Administered Last 24 Hrs: Meds Administered (Past 24Hrs) Medications (Trade) Dose Ordered Sig/Lisbet Route Start Time Stop Time Status Last Admin Dose Admin Methylprednisolone (Medrol Tab) 8 mg HS PO 03/19/16 22:00 03/19/16 22:01 DC 03/19/16 21:57 8 MG Methylprednisolone (Medrol Tab) 4 mg 07,13,18,21 PO 03/20/16 07:00 03/20/16 21:01 DC 03/20/16 21:13 4 MG Methylprednisolone (Medrol Tab) 4 mg 07,13,21 PO 03/21/16 07:00 03/21/16 21:01 03/21/16 06:48 4 MG Amantadine HCl (Symmetrel Cap) 100 mg BID PO 03/19/16 22:00 03/21/16 11:05 DC 03/21/16 10:13 100 MG Lab Results Last 24 Hrs: 03/10/16 15:45 03/10/16 15:45 03/10/16 18:18 Test 02/21/16 15:46 02/21/16 16:00 03/10/16 15:45 03/10/16 18:18 Immature Granulocyte % (Auto) 0.1% White Blood Count 6.98K/uL (4.8-10.8) Red Blood Count 4.84M/uL (4.2-5.4) 4.62M/uL (4.2-5.4) Hemoglobin 14.2g/dL (12.0-16.0) Hematocrit 41.2% (37-47) Mean Corpuscular Volume 85.1fL (80-100) 85.9fL (80-100) Mean Corpuscular Hemoglobin 29.3pg (25-34) 29.2pg (25-34) Mean Corpuscular Hemoglobin Concent 34.5g/dl (32-36) 34.0g/dl (32-36) Platelet Count 282K/uL (130-400) Mean Platelet Volume 10.0fL (7.4-10.4) 10.0fL (7.4-10.4) Neutrophils (%) (Auto) 66.7% Lymphocytes (%) (Auto) 25.6% Monocytes (%) (Auto) 6.3% Eosinophils (%) (Auto) 0.6% Basophils (%) (Auto) 0.7% Neutrophils # (Auto) 4.65K/uL (1.4-6.5) Lymphocytes # (Auto) 1.79K/uL (1.2-3.4) Monocytes # (Auto) 0.44K/uL (0.11-0.59) Eosinophils # (Auto) 0.04K/uL (0-0.5) Basophils # (Auto) 0.05K/uL (0-0.2) Immature Granulocyte # (Auto) 0.01K/uL (0.00-0.02) Prothrombin Time 10.4SECONDS (9.0-12.0) Prothromb Time International Ratio 1.0 (0.9-1.1) Activated Partial Thromboplast Time 29.9SECONDS (21.0-31.0) Partial Thromboplastin Ratio 1.2 Direct Bilirubin mg/dl (0-0.2) Total Creatine Kinase 84U/L (26-192) Lipase 201U/L (73-393) Free Thyroxine 1.17ng/dl (0.80-1.60) Human Chorionic Gonadotropin, Qual NEG (NEG) Chemistry Specimen Hemolysis Ethyl Alcohol mg/dL < 3.0mg/dl (0-3) Urine Color YELLOW Urine Appearance CLEAR (CLEAR) Urine pH 6.0 (4.5-7.5) Urine Specific [place]lue 1.015 (1.000-1.030) Urine Protein NEG (NEG) Urine Glucose (UA) NEG (NEG) Urine Ketones 1+ (NEG) Urine Occult Blood NEG (NEG) Urine Nitrite NEG (NEG) Urine Bilirubin NEG (NEG) Urine Urobilinogen NEG (NEG) Urine Leukocyte Esterase NEG (NEG) Urine WBC (Auto) 1-5/hpf (0-5) Urine RBC (Auto) 0-4/hpf (0-4) Urine Hyaline Casts (Auto) 1-5/lpf (0-5) Urine Epithelial Cells (Auto) 10-20/lpf (0-5) Urine Bacteria (Auto) NEG (NEG) Urine Opiates Screen NEG (NEG) Urine Methadone, Qualitative NEG (NEG) Urine Barbiturates NEG (NEG) Urine Phencyclidine (PCP) Level NEG (NEG) Ur Amphetamine/Methamphetamine NEG (NEG) MDMA (Ecstasy) Screen NEG (NEG) Urine Benzodiazepines Screen NEG (NEG) Urine Cocaine Metabolite NEG (NEG) Urine Marijuana (THC) NEG (NEG) RDW Standard Deviation 43.0fL (36.4-46.3) RDW Coefficient of Variation 13.9% (11.5-14.5) Anion Gap 10.0mmol/L (3-11) Est Creatinine Clear Calc Drug Dose 132.4ml/min Estimated GFR () 127.5 Estimated GFR (Non- 110.0 BUN/Creatinine Ratio 17.6 (10-20) Calcium Level 8.4mg/dl (8.5-10.1) Total Bilirubin 0.5mg/dl (0.2-1) Alanine Aminotransferase (ALT/SGPT) 22U/L (12-78) Alkaline Phosphatase 66U/L (45-117) Total Protein 6.7gm/dl (6.4-8.2) Albumin 3.3gm/dl (3.4-5.0) Globulin 3.4gm/dl (2.5-4.0) Albumin/Globulin Ratio 1.0 (0.9-2) Aspartate Amino Transf (AST/SGOT) 18U/L (15-37) Thyroid Stimulating Hormone (TSH) 1.020uIu/ml (0.300-4.500) Test 03/15/16 07:31 03/16/16 11:21 03/19/16 21:36 03/19/16 22:40 Estimated Average Glucose 103mg/dl Hemoglobin A1c 5.2% (4.5-5.6) Vitamin B12 Level 375pg/mL (211-911) Folate 9.58ng/mL (>5.38) Creatine Kinase MB Ratio (0-3.0) Creatine Kinase MB 5.9ng/ml (0.5-3.6) Troponin I < 0.015ng/ml (0-0.045)
[2016-03-21] MEDS ORDERED: LIDODERM (LIDOCAINE) PATCH 5% TD ONE (11:30)
[2016-03-21] MEDS: PALIPERIDONE 3 MG TABCR PO SCH (21:33)
[2016-03-22] MEDS: LEVOTHYROXINE 125 MCG TAB PO SCH (06:47)
[2016-03-22] MEDS: METHYLPREDNISOLONE 4 MG TAB PO SCH ×2 (06:47→21:14)
[2016-03-22 06:56] VITALS: BP_SYST 116; BP_SYST 127; BP_DIAS 81; BP_DIAS 85; PULSE 69; PULSE 80; TEMP 36.4
[2016-03-22] MEDS: TAMSULOSIN HCL 0.4 MG CAP PO SCH (08:41)
[2016-03-22] MEDS: CLONAZEPAM 0.5 MG TAB PO SCH ×3 (08:41→21:13)
[2016-03-22] MEDS: DULOXETINE HCL 60 MG CAP PO SCH (08:41)
[2016-03-22] MEDS: PANTOprazole SOD 40 MG TAB PO SCH (08:42)
[2016-03-22] MEDS: GABAPENTIN 100 MG CAP PO SCH ×3 (08:42→21:14)
[2016-03-22] MEDS: MELOXICAM 7.5 MG TAB PO SCH (08:42)
[2016-03-22] MEDS: BACLOFEN 10 MG TAB PO SCH ×3 (08:42→21:47)
[2016-03-22] MEDS: GABAPENTIN 400 MG CAP PO SCH ×3 (08:42→21:14)
[2016-03-22] MEDS: GLYCOPYRROLATE 1 MG TAB PO SCH ×2 (08:42→14:27)
[2016-03-22] MEDS: PROPRANOLOL HCL 80 MG TAB PO SCH (08:43)
[2016-03-22] MEDS: FLUTICASONE PROPIONATE NA SPR 16 GM BTL NAE SCH (08:44)
[2016-03-22] MEDS: DICLOFENAC SOD 1% GEL 100 GM TUBE EXT SCH ×2 (08:50→14:00)
[2016-03-22] MEDS: LIDODERM (LIDOCAINE) PATCH 5% TD SCH (08:50)
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
[2016-03-22] MEDS: PALIPERIDONE 3 MG TABCR PO SCH (21:14)
[2016-03-22] MEDS ORDERED: SODIUM CHLORIDE 0.65% NA SOLN 45 ML (OCEAN) PRN (21:30)
[2016-03-22] MEDS ORDERED: HALOPERIDOL 5 MG TAB PO PRN (21:30)
[2016-03-22] MEDS ORDERED: SUMATRIPTAN SUCC TAB 100 MG TAB PO PRN (21:30)
[2016-03-22] MEDS ORDERED: hydrOXYzine HCL 25 MG TAB PO PRN (21:30)
[2016-03-22] MEDS ORDERED: DICLOFENAC SOD 1% GEL 100 GM TUBE EXT PRN (21:30)
[2016-03-22] MEDS ORDERED: ALUMINUM/MAGNESIUM SUSP 30 ML UDC PO PRN (21:30)
[2016-03-22] MEDS ORDERED: BISMUTH SUBSALICYLATE PER ML OMNICELL CHARGE PO PRN (21:30)
[2016-03-23 06:54] VITALS: BP_SYST 118; BP_SYST 140; BP_DIAS 81; BP_DIAS 86; PULSE 63; PULSE 67; TEMP 36.6
[2016-03-23] MEDS ORDERED: METHYLPREDNISOLONE 4 MG TAB PO SCH (07:00)
[2016-03-23] MEDS ORDERED: LEVOTHYROXINE 125 MCG TAB PO SCH (08:00)
[2016-03-23] MEDS ORDERED: TAMSULOSIN HCL 0.4 MG CAP PO SCH (09:00)
[2016-03-23] MEDS: FLUTICASONE PROPIONATE NA SPR 16 GM BTL NAE SCH (09:00)
[2016-03-23] MEDS ORDERED: HALOPERIDOL DECANOATE INJ 50 MG/ML VIAL IM SCH (09:00)
[2016-03-23] MEDS: LIDODERM (LIDOCAINE) PATCH 5% TD SCH (09:00)
[2016-03-23] MEDS ORDERED: DULOXETINE HCL 60 MG CAP PO SCH (09:00)
[2016-03-23] MEDS: PROPRANOLOL HCL 80 MG TAB PO SCH (09:05)
[2016-03-23] MEDS: PANTOprazole SOD 40 MG TAB PO SCH (09:08)
[2016-03-23] MEDS: MELOXICAM 7.5 MG TAB PO SCH (09:08)
[2016-03-23] MEDS: BACLOFEN 10 MG TAB PO SCH ×3 (09:08→22:04)
[2016-03-23] MEDS: GABAPENTIN 100 MG CAP PO SCH ×3 (09:08→22:07)
[2016-03-23] MEDS: GABAPENTIN 400 MG CAP PO SCH ×3 (09:08→22:05)
[2016-03-23] MEDS: CLONAZEPAM 0.5 MG TAB PO SCH ×3 (09:11→22:07)
--- NOTE | 2016-03-23 10:50 | Orthopedic Progress Note ---
Orthopedic Progress Note Date of Service Mar 23, 2016. Subjective Additional Notes: Pt is laying in bed upon arrival. Wakes easily. Complains of continued pain in the Right wrist/hand. States it feels . States she is wearing the wrist brace. EMG has not been completed yet. Denies any new injury. Objective Decreased edema since last exam. Intact motor function to the fingers/wrist. Does not put forth much effort. Pulses 2+. good cap refill. decreased subjective sensation across all digits. No significant pain with palpation of the forearm. Date Time Temp Pulse Resp B/P Pulse Ox O2 Delivery O2 Flow Rate FiO2 03/23/16 06:54 36.6 63 16 118/81 67 140/86 Assessment & Plan Assessment: Right wrist pain Plan: Continue prednisone. Spoke with 3S staff. they report she is not wearing the brace. Pt should be encouraged to wear it. EMG has not been obtained. Spoke with Arabella Cornell and they will attempt to have it completed. continue with ice/elevation for edema control. will continue to follow
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
[2016-03-23] MEDS: MAGNESIUM HYDROXIDE SUSP 30 ML UDC PO PRN (14:18)
[2016-03-23] MEDS ORDERED: CLOZAPINE 25 MG TAB PO SCH (22:00)
[2016-03-23] MEDS: PALIPERIDONE 3 MG TABCR PO SCH (22:04)
[2016-03-24 06:43] VITALS: BP_SYST 126; BP_DIAS 91; BP_DIAS 93; PULSE 69; PULSE 86; TEMP 36.6
[2016-03-24] MEDS: LEVOTHYROXINE 125 MCG TAB PO SCH (07:00)
[2016-03-24] MEDS ORDERED: LEVOTHYROXINE 125 MCG TAB PO SCH (08:00)
[2016-03-24] MEDS: FLUTICASONE PROPIONATE NA SPR 16 GM BTL NAE SCH (09:00)
[2016-03-24] MEDS: LIDODERM (LIDOCAINE) PATCH 5% TD SCH (09:00)
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
[2016-03-24] MEDS: DULOXETINE HCL 60 MG CAP PO SCH (11:13)
[2016-03-24] MEDS: TAMSULOSIN HCL 0.4 MG CAP PO SCH (11:14)
[2016-03-24] MEDS: PROPRANOLOL HCL 80 MG TAB PO SCH (11:15)
[2016-03-24] MEDS: MELOXICAM 7.5 MG TAB PO SCH (11:15)
[2016-03-24] MEDS: BACLOFEN 10 MG TAB PO SCH ×3 (11:15→22:24)
[2016-03-24] MEDS: CLONAZEPAM 0.5 MG TAB PO SCH ×3 (11:15→22:24)
[2016-03-24] MEDS: GABAPENTIN 100 MG CAP PO SCH ×3 (11:16→22:25)
[2016-03-24] MEDS: GABAPENTIN 400 MG CAP PO SCH ×3 (11:16→22:24)
[2016-03-24] MEDS: PANTOprazole SOD 40 MG TAB PO SCH (11:17)
[2016-03-24] MEDS: MAGNESIUM HYDROXIDE SUSP 30 ML UDC PO PRN (12:42)
[2016-03-24] MEDS ORDERED: CLOZAPINE 25 MG TAB PO SCH (22:00)
[2016-03-24] MEDS: PALIPERIDONE 3 MG TABCR PO SCH (22:24)
[2016-03-25 07:12] VITALS: BP_SYST 92; BP_SYST 93; BP_DIAS 60; BP_DIAS 65; PULSE 75; PULSE 76; TEMP 36.2
[2016-03-25] MEDS: LEVOTHYROXINE 125 MCG TAB PO SCH (07:14)
[2016-03-25] MEDS: FLUTICASONE PROPIONATE NA SPR 16 GM BTL NAE SCH (08:39)
[2016-03-25] MEDS: GABAPENTIN 400 MG CAP PO SCH ×3 (08:39→22:23)
[2016-03-25] MEDS: GABAPENTIN 100 MG CAP PO SCH ×3 (08:39→22:23)
[2016-03-25] MEDS: PANTOprazole SOD 40 MG TAB PO SCH (08:40)
[2016-03-25] MEDS: TAMSULOSIN HCL 0.4 MG CAP PO SCH (08:40)
[2016-03-25] MEDS: PROPRANOLOL HCL 80 MG TAB PO SCH (08:40)
[2016-03-25] MEDS: CLONAZEPAM 0.5 MG TAB PO SCH ×3 (08:40→22:23)
[2016-03-25] MEDS: DULOXETINE HCL 60 MG CAP PO SCH (08:41)
[2016-03-25] MEDS: LIDODERM (LIDOCAINE) PATCH 5% TD SCH (08:41)
[2016-03-25] MEDS: BACLOFEN 10 MG TAB PO SCH ×3 (08:41→22:23)
[2016-03-25] MEDS: MELOXICAM 7.5 MG TAB PO SCH (08:41)
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
--- NOTE | 2016-03-25 10:05 | Psych Management Progress Note ---
Psychiatry Miscellaneous Date of Service: Mar 25, 2016. Patient seen, MS assessed. Unable to rate mood. Fatigue. Limited participation in groups. Unable to verbalize care plan outlined by JUANPABLO given psychosis. Encouraged participation in therapeutic activities.
[2016-03-25] MEDS: LACTULOSE SYRUP 10 GM/15 ML BTL 473 ML PO PRN (17:54)
[2016-03-25] MEDS ORDERED: PALIPERIDONE 3 MG TABCR PO SCH (22:00)
[2016-03-25] MEDS ORDERED: CLOZAPINE 25 MG TAB PO SCH (22:00)
[2016-03-26 06:46] VITALS: BP_SYST 104; BP_SYST 108; BP_DIAS 70; BP_DIAS 76; PULSE 80; PULSE 93; TEMP 36.7
[2016-03-26] MEDS: LEVOTHYROXINE 125 MCG TAB PO SCH (07:49)
[2016-03-26] MEDS: FLUTICASONE PROPIONATE NA SPR 16 GM BTL NAE SCH (07:51)
[2016-03-26] MEDS: LIDODERM (LIDOCAINE) PATCH 5% TD SCH (09:00)
[2016-03-26] MEDS: TAMSULOSIN HCL 0.4 MG CAP PO SCH (09:57)
[2016-03-26] MEDS: DULOXETINE HCL 60 MG CAP PO SCH (09:57)
[2016-03-26] MEDS: PROPRANOLOL HCL 80 MG TAB PO SCH (09:59)
[2016-03-26] MEDS: MELOXICAM 7.5 MG TAB PO SCH (10:00)
[2016-03-26] MEDS: CLONAZEPAM 0.5 MG TAB PO SCH ×3 (10:00→21:11)
[2016-03-26] MEDS: BACLOFEN 10 MG TAB PO SCH ×3 (10:00→21:11)
[2016-03-26] MEDS: GABAPENTIN 100 MG CAP PO SCH ×3 (10:01→21:11)
[2016-03-26] MEDS: GABAPENTIN 400 MG CAP PO SCH ×3 (10:01→21:11)
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
[2016-03-26] MEDS: PANTOprazole SOD 40 MG TAB PO SCH (10:46)
[2016-03-26] MEDS: MAGNESIUM HYDROXIDE SUSP 30 ML UDC PO PRN (13:23)
[2016-03-26] MEDS ORDERED: PALIPERIDONE 3 MG TABCR PO SCH (22:00)
[2016-03-26] MEDS ORDERED: CLOZAPINE 25 MG TAB PO SCH (22:00)
[2016-03-27] MEDS: hydrOXYzine HCL 25 MG TAB PO PRN (00:32)
[2016-03-27] MEDS: LACTULOSE SYRUP 10 GM/15 ML BTL 473 ML PO PRN ×2 (00:33→16:05)
[2016-03-27 07:16] VITALS: BP_SYST 106; BP_SYST 107; BP_DIAS 75; BP_DIAS 76; PULSE 78; PULSE 94; TEMP 36.6
[2016-03-27] MEDS: LEVOTHYROXINE 125 MCG TAB PO SCH (07:50)
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
[2016-03-27] MEDS: FLUTICASONE PROPIONATE NA SPR 16 GM BTL NAE SCH ×2 (09:00→09:37)
[2016-03-27] MEDS: TAMSULOSIN HCL 0.4 MG CAP PO SCH (09:37)
[2016-03-27] MEDS: DULOXETINE HCL 60 MG CAP PO SCH (09:37)
[2016-03-27] MEDS: BACLOFEN 10 MG TAB PO SCH ×3 (09:38→21:50)
[2016-03-27] MEDS: MELOXICAM 7.5 MG TAB PO SCH (09:38)
[2016-03-27] MEDS: CLONAZEPAM 0.5 MG TAB PO SCH ×2 (09:38→21:50)
[2016-03-27] MEDS: PROPRANOLOL HCL 80 MG TAB PO SCH (09:38)
[2016-03-27] MEDS: PANTOprazole SOD 40 MG TAB PO SCH (09:39)
[2016-03-27] MEDS: GABAPENTIN 400 MG CAP PO SCH ×3 (09:39→21:50)
[2016-03-27] MEDS: GABAPENTIN 100 MG CAP PO SCH ×3 (09:39→21:50)
[2016-03-27] MEDS: LIDODERM (LIDOCAINE) PATCH 5% TD SCH (09:40)
[2016-03-27] MEDS: CLOZAPINE 100 MG TAB PO SCH (21:50)
[2016-03-28 07:02] VITALS: BP_SYST 103; BP_SYST 92; BP_DIAS 63; BP_DIAS 68; PULSE 81; PULSE 84; TEMP 36.5
[2016-03-28] MEDS: LEVOTHYROXINE 125 MCG TAB PO SCH (07:15)
[2016-03-28] MEDS: FLUTICASONE PROPIONATE NA SPR 16 GM BTL NAE SCH (09:00)
[2016-03-28] MEDS: TAMSULOSIN HCL 0.4 MG CAP PO SCH (10:46)
[2016-03-28] MEDS: DULOXETINE HCL 60 MG CAP PO SCH (10:46)
[2016-03-28] MEDS: PROPRANOLOL HCL 80 MG TAB PO SCH (10:47)
[2016-03-28] MEDS: BACLOFEN 10 MG TAB PO SCH ×3 (10:48→21:06)
[2016-03-28] MEDS: GABAPENTIN 100 MG CAP PO SCH ×3 (10:48→21:06)
[2016-03-28] MEDS: CLONAZEPAM 0.5 MG TAB PO SCH ×2 (10:48→21:05)
[2016-03-28] MEDS: MELOXICAM 7.5 MG TAB PO SCH (10:48)
[2016-03-28] MEDS: GABAPENTIN 400 MG CAP PO SCH ×3 (10:50→21:06)
[2016-03-28] MEDS: LIDODERM (LIDOCAINE) PATCH 5% TD SCH (10:50)
[2016-03-28] MEDS: PANTOprazole SOD 40 MG TAB PO SCH (10:50)
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
[2016-03-28 15:37] LABS: URINE APPEARANCE CLEAR (CLEAR); URINE BILIRUBIN NEG (NEG); URINE COLOR YELLOW; URINE NITRITE NEG (NEG); URINE SPECIFIC GRAVITY 1.005 (1.000-1.030); UROBILINOGEN NEG (NEG); ZZUR CULT IF INDIC CLEAN CATCH NO
[2016-03-28 15:42] LABS: MANUAL MICROSCOPIC REQUIRED? NO; REVIEW REQ? NO
[2016-03-28] MEDS: LACTULOSE SYRUP 10 GM/15 ML BTL 473 ML PO PRN (20:31)
[2016-03-28] MEDS: CLOZAPINE 100 MG TAB PO SCH (21:05)
[2016-03-28 22:14] VITALS: BP 117/84; PULSE 96
[2016-03-28] MEDS: hydrOXYzine HCL 25 MG TAB PO PRN (22:45)
[2016-03-29 07:08] VITALS: BP_SYST 101; BP_SYST 86; BP_DIAS 55; BP_DIAS 71; PULSE 83; PULSE 86; TEMP 36.6
[2016-03-29] MEDS: FLUTICASONE PROPIONATE NA SPR 16 GM BTL NAE SCH (10:36)
[2016-03-29] MEDS: LEVOTHYROXINE 125 MCG TAB PO SCH (10:36)
[2016-03-29] MEDS: DULOXETINE HCL 60 MG CAP PO SCH (10:37)
[2016-03-29] MEDS: TAMSULOSIN HCL 0.4 MG CAP PO SCH (10:38)
[2016-03-29] MEDS: PROPRANOLOL HCL 80 MG TAB PO SCH (10:39)
[2016-03-29] MEDS: MELOXICAM 7.5 MG TAB PO SCH (10:40)
[2016-03-29] MEDS: BACLOFEN 10 MG TAB PO SCH ×3 (10:40→21:13)
[2016-03-29] MEDS: GABAPENTIN 100 MG CAP PO SCH ×3 (10:41→21:14)
[2016-03-29] MEDS: GABAPENTIN 400 MG CAP PO SCH ×3 (10:41→21:13)
[2016-03-29] MEDS: PANTOprazole SOD 40 MG TAB PO SCH (10:42)
[2016-03-29] MEDS: LIDODERM (LIDOCAINE) PATCH 5% TD SCH (10:42)
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
[2016-03-29] MEDS: CLONAZEPAM 0.5 MG TAB PO SCH (21:13)
[2016-03-29] MEDS: CLOZAPINE 25 MG TAB PO SCH (21:13)
[2016-03-30] MEDS: LEVOTHYROXINE 125 MCG TAB PO SCH (06:49)
[2016-03-30 07:11] VITALS: BP_SYST 105; BP_SYST 111; BP_DIAS 66; BP_DIAS 72; PULSE 73; PULSE 80; TEMP 36.6
[2016-03-30 07:50] LABS: BASO % 0.7 %; BASO ABS # 0.05 K/uL (0-0.2); COMPLETE YES; EOS % 3.7 %; HEMATOCRIT 38.8 % (37-47); IG% 0.4 %; LYMPH % 31.5 %; LYMPH ABS # 2.32 K/uL (1.2-3.4); MEAN CORPUSCULAR HEMOGLOBIN 28.6 pg (25-34); MEAN CORPUSCULAR HGB CONC 32.5 g/dl (32-36); MEAN PLATELET VOLUME 9.3 fL (7.4-10.4); MONO % 6.8 %; NEUT % 56.9 %; PLATELET COUNT 236 K/uL (130-400); RED BLOOD COUNT 4.41 M/uL (4.2-5.4); WHITE BLOOD COUNT 7.37 K/uL (4.8-10.8)
--- NOTE | 2016-03-30 08:48 | Orthopedic Progress Note ---
Orthopedic Progress Note Date of Service Mar 30, 2016. Subjective Post OP Day: Behavioral health unit patient Reports: pain controlled w PO medications, Denies: SOB, calf pain, chest pain, complaints, feeling well, light headedness, nausea / vomiting, using [employer] Additional Notes: Continues to c/o Rt wrist pain and mild swelling over dorsal surface of Rt 2nd MCP (area is covered with gauze pad). Objective N/V intact, capillary refill less than 2 sec., A&O x3 Pad was removed but no skin opening or discharge noted. Pt has good dexterity of digits. Able to resist distraction/compression of digits and pincer grasp. No pain resisting flex/ext with applied resistance at 1st IP and MCP joints. Mild tenderness elicited in wrist joint with flexion and extension but no pain with ulnar/radial deviation or pronation or supination. N/V intact; able to depict light touch to distal pads of all digits. No erythema, ecchymosis, warmth or palpable deformity. Machine Rough Rounder strength equal VALENTE. Date Time Temp Pulse Resp B/P Pulse Ox O2 Delivery O2 Flow Rate FiO2 03/30/16 07:11 36.6 73 18 105/66 80 111/72 Laboratory Results 24 Hours: Test 03/30/16 07:35 White Blood Count 7.37 K/uL Red Blood Count 4.41 M/uL Hemoglobin 12.6 g/dL Hematocrit 38.8 % Mean Corpuscular Volume 88.0 fL Mean Corpuscular Hemoglobin 28.6 pg Mean Corpuscular Hemoglobin Concent 32.5 g/dl Platelet Count 236 K/uL Mean Platelet Volume 9.3 fL Neutrophils (%) (Auto) 56.9 % Lymphocytes (%) (Auto) 31.5 % Monocytes (%) (Auto) 6.8 % Eosinophils (%) (Auto) 3.7 % Basophils (%) (Auto) 0.7 % Neutrophils # (Auto) 4.20 K/uL Lymphocytes # (Auto) 2.32 K/uL Monocytes # (Auto) 0.50 K/uL Eosinophils # (Auto) 0.27 K/uL Basophils # (Auto) 0.05 K/uL Assessment & Plan Assessment: Right wrist pain Plan: Continue prednisone. Patient was not wearing the brace. Pt was encouraged to wear it as previously instructed. EMG has not been obtained. continue with ice/elevation for edema control. will continue to follow
[2016-03-30] MEDS: GABAPENTIN 100 MG CAP PO SCH ×3 (09:00→22:04)
[2016-03-30] MEDS: FLUTICASONE PROPIONATE NA SPR 16 GM BTL NAE SCH ×2 (09:00→09:23)
[2016-03-30] MEDS: TAMSULOSIN HCL 0.4 MG CAP PO SCH (09:24)
[2016-03-30] MEDS: DULOXETINE HCL 60 MG CAP PO SCH (09:24)
[2016-03-30] MEDS: BACLOFEN 10 MG TAB PO SCH ×3 (09:26→22:03)
[2016-03-30] MEDS: PROPRANOLOL HCL 80 MG TAB PO SCH (09:26)
[2016-03-30] MEDS: MELOXICAM 7.5 MG TAB PO SCH (09:26)
[2016-03-30] MEDS: PANTOprazole SOD 40 MG TAB PO SCH (09:27)
[2016-03-30] MEDS: GABAPENTIN 400 MG CAP PO SCH ×3 (09:27→22:04)
[2016-03-30] MEDS: LIDODERM (LIDOCAINE) PATCH 5% TD SCH (09:30)
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
[2016-03-30] MEDS: MAGNESIUM HYDROXIDE SUSP 30 ML UDC PO PRN (14:05)
[2016-03-30] MEDS: METFORMIN HCL 500 MG TAB PO SCH (18:05)
[2016-03-30] MEDS: CLOZAPINE 25 MG TAB PO SCH (22:03)
[2016-03-31 07:05] VITALS: BP 118/80; PULSE 88; TEMP 36.6
[2016-03-31] MEDS: FLUTICASONE PROPIONATE NA SPR 16 GM BTL NAE SCH (09:00)
[2016-03-31] MEDS: LEVOTHYROXINE 125 MCG TAB PO SCH (09:12)
[2016-03-31] MEDS: DULOXETINE HCL 60 MG CAP PO SCH (09:13)
[2016-03-31] MEDS: PROPRANOLOL HCL 80 MG TAB PO SCH (09:14)
[2016-03-31] MEDS: MELOXICAM 7.5 MG TAB PO SCH (09:14)
[2016-03-31] MEDS: BACLOFEN 10 MG TAB PO SCH ×3 (09:14→22:03)
[2016-03-31] MEDS: TAMSULOSIN HCL 0.4 MG CAP PO SCH (09:14)
[2016-03-31] MEDS: GABAPENTIN 400 MG CAP PO SCH ×3 (09:15→22:04)
[2016-03-31] MEDS: PANTOprazole SOD 40 MG TAB PO SCH (09:15)
[2016-03-31] MEDS: GABAPENTIN 100 MG CAP PO SCH ×3 (09:15→22:03)
[2016-03-31] MEDS: LIDODERM (LIDOCAINE) PATCH 5% TD SCH (09:16)
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
[2016-03-31] MEDS: METFORMIN HCL 500 MG TAB PO SCH (17:20)
[2016-03-31] MEDS: MAGNESIUM HYDROXIDE SUSP 30 ML UDC PO PRN (17:33)
[2016-03-31] MEDS: CLOZAPINE 25 MG TAB PO SCH (22:03)
[2016-04-01 07:03] VITALS: BP_SYST 103; BP_SYST 105; BP_DIAS 71; PULSE 89; PULSE 91; TEMP 36.9
[2016-04-01] MEDS: LEVOTHYROXINE 125 MCG TAB PO SCH (08:21)
[2016-04-01] MEDS: FLUTICASONE PROPIONATE NA SPR 16 GM BTL NAE SCH (09:00)
[2016-04-01] MEDS: LIDODERM (LIDOCAINE) PATCH 5% TD SCH (09:00)
[2016-04-01] MEDS: TAMSULOSIN HCL 0.4 MG CAP PO SCH (09:08)
[2016-04-01] MEDS: DULOXETINE HCL 60 MG CAP PO SCH (09:08)
[2016-04-01] MEDS: PROPRANOLOL HCL 80 MG TAB PO SCH (09:09)
[2016-04-01] MEDS: BACLOFEN 10 MG TAB PO SCH ×3 (09:09→21:25)
[2016-04-01] MEDS: PANTOprazole SOD 40 MG TAB PO SCH (09:10)
[2016-04-01] MEDS: GABAPENTIN 400 MG CAP PO SCH ×3 (09:10→21:25)
[2016-04-01] MEDS: GABAPENTIN 100 MG CAP PO SCH ×3 (09:10→21:25)
[2016-04-01] MEDS: MELOXICAM 7.5 MG TAB PO SCH (09:11)
[2016-04-01] MEDS: LACTULOSE SYRUP 10 GM/15 ML BTL 473 ML PO PRN (13:13)
--- NOTE | 2016-04-01 13:20 | Psychiatric Progress Notes ---
Progress Note Date of Service Apr 01, 2016. Interval History Joyce Almendarez is a 31 year old woman who has been hospitalized here many times previously - most recently November and December 2015. She was admitted on a voluntary basis 02/22/1616 with reports of auditory hallucinations of her father wanting her to come to [facility] with him. She was converted to a 304 involuntary commitment on 03/12/16 after several days of refusing to eat, drink or take medications with command auditory hallucinations telling her not to do these things. Has has been accepted at [facility]. Chief Complaint "I'm still constipated". Subjective Patient was seen & assessed interval progress reviewed with Treatment Team. Patient reports that she continues to feel constipated and no relief with milk of magnesia and prune juice. Mood depressed and anxious and she rates mood as 5 out of 10. Continues to struggle with back pain. Has been able to urinate on her own without the need to self catheterize. Review of Systems Slept 6 1/2 hours. Decreased energy. Increased appetite. Denies nausea or diarrhea or vomiting. Continues to feels constipated. Denies headaches or rash. Hypersalivation. Medication Side Effects: Possible akathisia 03/29 hypersalivation Sleep Information Total Hours of Sleep: 6.50 Meal Information Percent of Breakfast Consumed: 100 Percent of Lunch Consumed: 100 Percent of Dinner Consumed: 100 Mental Status Exam During interview pt is: cooperative, other (tired and sleepy) Appearance: disheveled Eye contact is: fair, other Motor behavior is: psychomotor retardation Speech: other (slowed, minimal) Affect: depressed, flat Mood is: depressed, anxious Thought process: concrete Thought content: preoccupation (pain) Suicidal thought are: denied, Plan: denied, Intent: denied Homicidal thoughts are: denied Hallucinations: auditory (daily, negative statements), denies visual Cognition: other (memory and attention impaired) Intelligence estimated to be: below average Insight: severely impaired Judgement: severely impaired Medication Trials (1) Past Psych Meds Risperdal -- EPS, hypotension, ineffective Remeron - brief trial in hospital, ineffective Ambien propranolol trazodone haldol - muscle jerking, drooling, Parkinsonian symptoms Wellbutrin - worsened agitation and psychosis benzos - abused them Suboxone - for opiate abuse Last Edited By: Patrica Iqbal on Mar 16, 2016 11:31 Impression Remains tired and poorly participatory in her care. Hallucinations persist with voices telling her negative things about her weight, and she is asking for weight loss pills. Not honest about the hallucinations. Is now off of Invega completely, will further titrate Clozaril to 125 mg. She is largely not going to groups but for one here and there, and continues with no insight into her capabilities. She has been accepted to [facility] but no bed date yet assigned. Continued Inpatient Care Requires inpatient care due to the severity of her condition and inability to care for herself or provide for her own basic needs outside of a structured environment. Plan (1) Major depressive disorder with psychotic features A. Continue Cymbalta 90 mg daily. B. Continue Haldol 5 mg b.i.d. C. Q. 15 minute checks for safety. D. Reality orientation. E. Encourage participation in group and individual counseling. F. Attempt to establish a meeting with Radha to enlist her support finding alternate housing placement. G. Contact outpatient corrections caseworker has been involved with her and possibly looking for alternate housing arrangements. Meeting scheduled 02/23 at 8 am. H. Coordinate care with Dr. Hoffman's office whom she says is her outpatient psychiatrist, although she has not seen him lately. 02/22/16: Cymbalta increased to 120mg daily. 02/24/16: patient's psychosis is again improved with restart of Haldol, patient is agreeable to long acting injectable as recognizes med non-compliance has contributed to multiple admissions. Will order 100 mg Haldol IM today with plan to taper oral Haldol over next week. Next dec shot due 03/23/16. Patient is also agreeable to nursing home referral. 02/26/16: Decrease oral Haldol from 5mg bid to 5mg qhs. 02/27/16: Meeting with sister and corrections caseworker. Patient cannot return home, house and truck being sold as she cannot afford them. Adult protective services involved and will explore placement options. 02/28/16: - MA 51 completed - Continue current meds. - Explore use of methylene blue for depression post TBI - Meeting with corrections caseworker, executive secretary social welfare, and rep payee 02/29/16: - Paperwork for rep payee completed - Exploring options for personal care homes, as cannot live independently. 03/02/16 - Add Wellbutrin SR 100 mg daily for mood, energy, cognitive dulling - No documented hx of seizures either inpatient or in OP neuro notes. 03/03/16 and 03/05/16 - Continue current medications, as patient denies side effects, but watch as wellbutrin amplifies cymbalta in vivo. 03/06/16 - Increase Wellbutrin SR to 150 mg. daily - [employer] [facility] rep to visit today 03/07/16 - Hallucinations worse, not eating or drinking, nor taking meds. - Restless, likely akathisia - Will convert to Invega starting at 3 mg. daily titrating as tolerated and consider Sustenna - DC Seroquel - CMP due to concerns for hyponatremia or other metabolic derangements since she isn't eating - WILL FILE FOR A 304 as patient has not ability to care for herself and there are, as of yet, no short term options for her. She has repeatedly failed at home and sending her back there even temporarily will set her up for failure. Will refer to [facility]. 03/08/16 - Increase Invega to 6 mg. HS - The patient will require individual attention in order to get to eat and drink 03/08/16 - Add Klonopin 1 mg. BID - Consider increasing Invega to 9 mg. HS tomorrow - Reduce Wellbutrin SR to 100 mg. in the event it has been worsening her condition. - Ask Dr. Morrison or neuro operations administrator to weigh in regarding the direction her care should take 03/10 - CMP, CBC, TSH, vit B12 and folate all normal - encourage PO intake 03/11 - unable to effectively reality test - Reviewed tx hx. Efforts in past to reduce medication burden possibly helpful in brightening affect but unclear if this may have contributed to exacerbation of psychosis. She had haldol decanoate earlier this month and will defer further dose escalation of antipsychotic for now as she appears so motorically retarded. - Will check duloxetine level to see if there might be room for more aggressive antidepressant tx which ultimately may help to reduce psychosis 03/12 - 304 granted. - Refer to [facility]. - Increase Invega to 9mg daily. - Continue Wellbutrin, SR 100mg qam, clonazepam 1mg bid, duloxetine 120mg qam. 03/14 - DC Wellbutrin due to concerns it worsened hallucinations and is contributing to agitation - Amantadine 100 mg. daily for restlessness and for procognitive benefits. 03/17 - 03/18 - Continue Invega 9mg, as psychosis has improved. - Decrease clonazepam to 0.5mg tid to try to limit sedating/addicting medications and polypharmacy. - Continue duloxetine 120mg daily. 03/19 - Increase amantadine to 100mg bid 03/21 - DC Amantadine - Start Inderal 40 mg. daily for akathisia 03/22 - Admits to daily , attempted to discuss trial of clozapine, but patient unwilling to engage - Patient has been here for 30 days, but not appropriate for going outside, as she has repeatedly checked unit doors to try to elope, states she wants to elope, and is uncooperative with treatment 03/23 --reviewed trial of clozaril for treatment refractory psychosis. Reviewed rationale for bloodwork monitoring, plan is for supervised setting. She is agreeable as sees as possibility of diversion from [facility], reinforced no guarantee of that. Registered patient on Cl[facility] website and ordered a f/u CBC for 1 week. Notified pharmacy. Patient given written handout from [facility] website with hopes to refer risks/benefits further as MS chou. Start 12. 5 mg po qhs with plan for titration. 03/24 - Increase Clozapine to 25 mg. HS 03/25 - Increase Clozaril to 50 mg. HS - Decrease Invega to 6 mg HS 03/26 - Increase Clozaril to 75 mg. HS - Decrease Invega to 3 mg. 03/27 - Reviewed in treatment team that patient has been here >30 days, has not been trying to elope from the unit for the past few days, and determined that she may go outside per unit policy with staff and security. - Increase clozapine to 100mg qhs. Weekly CBC for monitoring on 03/30. - Decrease clonazepam from 0.5mg tid to bid due to sedation and in effort to avoid addictive substances. - Discontinue Invega. - Accepted at [facility]; awaiting bed date. - Meeting with [facility]SU held, patient not appropriate for diversion due to severity of her symptoms. 03/28 - Further reduce klonopin due to AM sedation, to 0.5 mg. HS only 03/29 - Increase Clozaril to 125 mg. HS. 03/30 - weekly CBC stable - patient agreeable to trial of metformin to assist with medication induced weight gain, may also be stopping topamax - now that on Clozaril increase at hs, lower BP in combo with Klonopin, told patient klonopin will be discontinued due to fall risk and excessive sedation (2) Chronic pain associated with significant psychosocial dysfunction A. Discontinue Nucynta as the patient has no one to follow this and inability to get any appointments. B. She has an outpatient appointment with [facility] pain management on March 14 which we hope that she will keep as that may be the person to manage her reports of pain, although it is unlikely she will get there without significant support. C. Encourage heat and ice p.r.n. D. Encourage walking and gentle exercising. 02/25/16: patient appears to be here for an extended stay due to inability to care for self due to her overall combo of mental health and physical condition issues. MD spoke with Dr. Morrison today as patient was requesting consult. Rereviewed challenges for this patient. He recognizes role for Nucynta given her objective pathology (surgical scarring and past nerve conduction studies) but it is not a medication he prescribes. Reviewed that treatment team here doesn't feel she can manage it at home outside of structured setting. Rereviewed pain management consult, only recommended agent, patient has exhausted other options to augment pain control and pain does appear to be increasing in last 24-48 hours and genuinely interfering with participation in programming. Will order 1 time dose under contract with patient. 02/27/16: Recommend Tylenol, Baclofen, gentle stretching, and use of heating pad for management of chronic back pain. 02/29/16: Patient continues to complain of chronic low back pain, and is isolating in her bed with little movement. Will request PT consult to assist with gentle stretching and exercises to assist with chronic pain. 03/01/16: Again reviewed concerns with starting narcotic pain meds, and patient is requesting a pain management consult. Contacted Dr. العراقي to discuss, as this is a complex, chronic pain issue and we are attempting to manage it conservatively without adding medications that have caused medical and psychiatric problems for her in the past several months. Awaiting PT assessment, and encouraging use of Voltaren gel, Baclofen, acetaminophen, and heating pad. Encourage her to be out of bed, moving, and stretching multiple times a day. Awaiting call back from Pain Management to discuss any other acute options while inpatient and awaiting evaluation at [facility] on . - Spoke with Dr. Sun who is familiar with the patient. She has been noncompliant and fired from multiple local offices. He suggested oral Toradol or hydrocodone/APAP 5mg tid, but only in the hospital, as she is not able to safely manage these meds outside the hospital. Could also give Meloxicam ( starting dose 7.5mg daily, can increase to 15mg daily), which is a safer assisted analgesic. She has disc damage but is not a good surgical candidate. 03/03 - 03/05/16: Continue meloxicam, and encourage physical activation. Continue cymbalta. 03/06/16 - Increase neurontin to 1000 mg. TID. - Continue to encourage exercises multiple times per day. 03/10 - pt c/o RUE weakness. reviewed record and she does have h/o pathology at c5- c6 on CT last month. will request input from hospitalist before additional studies ordered 03/11 - appreciate assistance from medical consultation for RUE weakness. Xray and labs looked ok without acute process evident. Will consider cervical/thoracis spine CT with input from hospitalist service. 03/12 - Increase Meloxicam to 15mg daily. Encourage exercise multiple times daily, and participation with PT. Continue Baclofen, Tylenol, Ibuprofen and heat packs prn. Appreciate hospitalist input and will defer need for further imaging of wrist/spine to them. 03/15 - PT consult to work on her hand numbness, which she says is ongoing, despite negative workup by hospitalist. 03/17 - Continue to work with PT. - Appreciate hospitalist's recommendations. - Continue gabapentin, Baclofen, Meloxicam, Tylenol, Ibuprofen (3) Hypothyroidism A. Labs within normal limits. B. Continue home dose of Synthroid. (4) GERD (gastroesophageal reflux disease) A. Continue home dose of Protonix. (5) Opiate dependence Avoiding use of narcotics due to ongoing abuse/misuse/negative outcomes (car accident, falls, etc). (6) TBI (traumatic brain injury) Patient has reported multiple head injuries, and may benefit from evaluation for TBI in the long run if cognitive and other post-concussive symptoms continue after primary mental illness symptoms stabilize. 03/13 - Discussed case with Dr. Morrison, neurology, who does not feel there are any acute neurological concerns and supports assisted psychiatric treatment. (7) History of medication noncompliance Recommend higher level of care such as [facility] for medication oversight, see related social work notes pending possible [facility] assessment on 03/05/16. Discharge / Aftercare Planning Primary Care Physician: Name: Dr Benjamin at [facility] [place] Psychiatrist: Name: Dr Hoffman Therapist: Name: pt did not follow up last time College Physics Instructor: Name: Juan Manuel [facility]: Name: [facility] Phone Number: [phone] Date of Appointment: Apr 11, 2016 Time of Appointment: 2:00 pm Visit Code E&M Code: 91653 Risk Factors Assessment : Yes /single/: Yes Access to guns: No Health problems: Yes Mental Health Diagnoses: Yes Substance use disorders: Yes Previous attempt: Yes (overdosed on a bottle of gabapentin a couple of weeks prior to admission, and did not tell anyone or seek care) Previous attempt;highly lethal: Yes Previous attempt; planned: Yes Previous attempt; didn't tell: Yes Family history of suicide: No Previous psychiatric stay: Yes Hopelessness: Yes Protective Factors Assessment Yarsanism beliefs: Yes : No Responsible for young children: No Employed: No Stable relationships: No Supportive family: No Good rapport with provider: No Absence of risk factors above: No Data Vital Signs Last 24 Hrs: Date Time Temp Pulse Resp B/P Pulse Ox O2 Delivery O2 Flow Rate FiO2 04/01/16 07:03 36.9 89 16 105/71 91 103/71 Meds Administered Last 24 Hrs: Meds Administered (Past 24Hrs) Medications (Trade) Dose Ordered Sig/Lisbet Route Start Time Stop Time Status Last Admin Dose Admin Metformin HCl (Glucophage Tab) 500 mg DAILYBD PO 03/30/16 17:15 04/29/16 17:14 03/31/16 17:20 500 MG
[2016-04-01] MEDS: METFORMIN HCL 500 MG TAB PO SCH (17:03)
[2016-04-01] MEDS: CLOZAPINE 25 MG TAB PO SCH (21:25)
[2016-04-02 06:54] VITALS: BP_SYST 106; BP_SYST 97; BP_DIAS 66; BP_DIAS 70; PULSE 112; PULSE 82; TEMP 36.6
[2016-04-02] MEDS: LEVOTHYROXINE 125 MCG TAB PO SCH (08:13)
[2016-04-02] MEDS: FLUTICASONE PROPIONATE NA SPR 16 GM BTL NAE SCH (09:00)
[2016-04-02] MEDS: TAMSULOSIN HCL 0.4 MG CAP PO SCH (09:41)
[2016-04-02] MEDS: DULOXETINE HCL 60 MG CAP PO SCH (09:41)
[2016-04-02] MEDS: BACLOFEN 10 MG TAB PO SCH ×3 (09:42→22:45)
[2016-04-02] MEDS: PROPRANOLOL HCL 80 MG TAB PO SCH (09:42)
[2016-04-02] MEDS: PANTOprazole SOD 40 MG TAB PO SCH (09:43)
[2016-04-02] MEDS: GABAPENTIN 400 MG CAP PO SCH ×3 (09:43→22:45)
[2016-04-02] MEDS: LIDODERM (LIDOCAINE) PATCH 5% TD SCH (09:43)
[2016-04-02] MEDS: GABAPENTIN 100 MG CAP PO SCH ×3 (09:43→22:45)
[2016-04-02] MEDS: MELOXICAM 7.5 MG TAB PO SCH (09:43)
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
[2016-04-02] MEDS: METFORMIN HCL 500 MG TAB PO SCH (17:12)
[2016-04-02] MEDS: LACTULOSE SYRUP 10 GM/15 ML BTL 473 ML PO PRN (17:23)
[2016-04-02] MEDS: CLOZAPINE 25 MG TAB PO SCH (22:45)
[2016-04-03 06:50] VITALS: BP_SYST 120; BP_SYST 128; BP_DIAS 77; BP_DIAS 89; PULSE 87; PULSE 89; TEMP 36.6
[2016-04-03] MEDS: LEVOTHYROXINE 125 MCG TAB PO SCH (08:46)
[2016-04-03] MEDS: LIDODERM (LIDOCAINE) PATCH 5% TD SCH (08:46)
[2016-04-03] MEDS: GABAPENTIN 400 MG CAP PO SCH ×3 (08:47→21:09)
[2016-04-03] MEDS: GABAPENTIN 100 MG CAP PO SCH ×3 (08:47→21:09)
[2016-04-03] MEDS: MELOXICAM 7.5 MG TAB PO SCH (08:47)
[2016-04-03] MEDS: BACLOFEN 10 MG TAB PO SCH ×3 (08:47→21:09)
[2016-04-03] MEDS: DULOXETINE HCL 60 MG CAP PO SCH (08:47)
[2016-04-03] MEDS: PROPRANOLOL HCL 80 MG TAB PO SCH (08:47)
[2016-04-03] MEDS: PANTOprazole SOD 40 MG TAB PO SCH (08:48)
[2016-04-03] MEDS: TAMSULOSIN HCL 0.4 MG CAP PO SCH (08:48)
[2016-04-03] MEDS: FLUTICASONE PROPIONATE NA SPR 16 GM BTL NAE SCH (08:48)
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
[2016-04-03] MEDS: LACTULOSE SYRUP 10 GM/15 ML BTL 473 ML PO PRN (12:11)
[2016-04-03] MEDS: MAGNESIUM HYDROXIDE SUSP 30 ML UDC PO PRN (17:05)
[2016-04-03] MEDS: METFORMIN HCL 500 MG TAB PO SCH (17:23)
[2016-04-03] MEDS: CLOZAPINE 25 MG TAB PO SCH (21:08)
[2016-04-04 07:02] VITALS: BP_SYST 106; BP_SYST 113; BP_DIAS 72; BP_DIAS 79; PULSE 88; PULSE 93; TEMP 36.7
[2016-04-04] MEDS: LEVOTHYROXINE 125 MCG TAB PO SCH (08:00)
[2016-04-04] MEDS: LIDODERM (LIDOCAINE) PATCH 5% TD SCH (09:00)
[2016-04-04] MEDS: FLUTICASONE PROPIONATE NA SPR 16 GM BTL NAE SCH (09:00)
[2016-04-04] MEDS: DULOXETINE HCL 60 MG CAP PO SCH (09:51)
[2016-04-04] MEDS: TAMSULOSIN HCL 0.4 MG CAP PO SCH (09:52)
[2016-04-04] MEDS: PROPRANOLOL HCL 80 MG TAB PO SCH (09:52)
[2016-04-04] MEDS: GABAPENTIN 400 MG CAP PO SCH ×3 (09:53→21:16)
[2016-04-04] MEDS: MELOXICAM 7.5 MG TAB PO SCH (09:53)
[2016-04-04] MEDS: GABAPENTIN 100 MG CAP PO SCH ×3 (09:53→21:16)
[2016-04-04] MEDS: BACLOFEN 10 MG TAB PO SCH ×3 (09:53→21:16)
[2016-04-04] MEDS: PANTOprazole SOD 40 MG TAB PO SCH (09:53)
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
[2016-04-04] MEDS: LACTULOSE SYRUP 10 GM/15 ML BTL 473 ML PO PRN (16:26)
[2016-04-04] MEDS: METFORMIN HCL 500 MG TAB PO SCH (17:20)
[2016-04-04] MEDS: CLOZAPINE 25 MG TAB PO SCH (21:17)
[2016-04-05 06:56] VITALS: BP_SYST 109; BP_SYST 113; BP_DIAS 69; BP_DIAS 74; PULSE 85; PULSE 93; TEMP 36.7
[2016-04-05] MEDS: LEVOTHYROXINE 125 MCG TAB PO SCH (08:04)
[2016-04-05] MEDS: FLUTICASONE PROPIONATE NA SPR 16 GM BTL NAE SCH (09:00)
[2016-04-05] MEDS: TAMSULOSIN HCL 0.4 MG CAP PO SCH (09:46)
[2016-04-05] MEDS: DULOXETINE HCL 60 MG CAP PO SCH (09:46)
[2016-04-05] MEDS: PROPRANOLOL HCL 80 MG TAB PO SCH (09:48)
[2016-04-05] MEDS: BACLOFEN 10 MG TAB PO SCH ×3 (09:48→21:20)
[2016-04-05] MEDS: GABAPENTIN 100 MG CAP PO SCH ×3 (09:49→21:21)
[2016-04-05] MEDS: MELOXICAM 7.5 MG TAB PO SCH (09:49)
[2016-04-05] MEDS: GABAPENTIN 400 MG CAP PO SCH ×3 (09:50→21:20)
[2016-04-05] MEDS: PANTOprazole SOD 40 MG TAB PO SCH (09:50)
[2016-04-05] MEDS: LIDODERM (LIDOCAINE) PATCH 5% TD SCH (09:50)
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
[2016-04-05] MEDS: METFORMIN HCL 500 MG TAB PO SCH (17:04)
[2016-04-05] MEDS: LACTULOSE SYRUP 10 GM/15 ML BTL 473 ML PO PRN (17:28)
[2016-04-05] MEDS: CLOZAPINE 25 MG TAB PO SCH (21:19)
[2016-04-05] MEDS: hydrOXYzine HCL 25 MG TAB PO PRN (21:19)
[2016-04-06 06:51] VITALS: BP_SYST 117; BP_DIAS 77; BP_DIAS 83; PULSE 79; PULSE 90; TEMP 36.6
[2016-04-06 07:05] LABS: BASO % 0.7 %; BASO ABS # 0.06 K/uL (0-0.2); COMPLETE YES; EOS % 3.5 %; HEMATOCRIT 38.4 % (37-47); LYMPH % 26.8 %; LYMPH ABS # 2.22 K/uL (1.2-3.4); MEAN CELL VOLUME 86.9 fL (80-100); MEAN CORPUSCULAR HEMOGLOBIN 28.3 pg (25-34); MEAN CORPUSCULAR HGB CONC 32.6 g/dl (32-36); MEAN PLATELET VOLUME 8.9 fL (7.4-10.4); MONO % 5.9 %; NEUT % 62.1 %; PLATELET COUNT 236 K/uL (130-400); RED BLOOD COUNT 4.42 M/uL (4.2-5.4); WHITE BLOOD COUNT 8.29 K/uL (4.8-10.8)
[2016-04-06] MEDS: LEVOTHYROXINE 125 MCG TAB PO SCH (07:39)
[2016-04-06] MEDS: FLUTICASONE PROPIONATE NA SPR 16 GM BTL NAE SCH (09:29)
[2016-04-06] MEDS: DULOXETINE HCL 60 MG CAP PO SCH (09:29)
[2016-04-06] MEDS: TAMSULOSIN HCL 0.4 MG CAP PO SCH (09:29)
[2016-04-06] MEDS: PROPRANOLOL HCL 80 MG TAB PO SCH (09:30)
[2016-04-06] MEDS: GABAPENTIN 100 MG CAP PO SCH ×3 (09:31→21:05)
[2016-04-06] MEDS: MELOXICAM 7.5 MG TAB PO SCH (09:31)
[2016-04-06] MEDS: BACLOFEN 10 MG TAB PO SCH ×2 (09:31→21:04)
[2016-04-06] MEDS: GABAPENTIN 400 MG CAP PO SCH ×3 (09:32→21:04)
[2016-04-06] MEDS: PANTOprazole SOD 40 MG TAB PO SCH (09:32)
[2016-04-06] MEDS: LIDODERM (LIDOCAINE) PATCH 5% TD SCH (09:32)
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
[2016-04-06] MEDS: METFORMIN HCL 850 MG TAB PO SCH (17:20)
[2016-04-06] MEDS: CLOZAPINE 25 MG TAB PO SCH (21:03)
[2016-04-06] MEDS: hydrOXYzine HCL 25 MG TAB PO PRN (21:05)
[2016-04-07 07:01] VITALS: BP_SYST 115; BP_SYST 120; BP_DIAS 69; BP_DIAS 78; PULSE 83; PULSE 86; TEMP 36.6
[2016-04-07] MEDS: LEVOTHYROXINE 125 MCG TAB PO SCH (07:17)
[2016-04-07] MEDS: TAMSULOSIN HCL 0.4 MG CAP PO SCH (08:36)
[2016-04-07] MEDS: DULOXETINE HCL 60 MG CAP PO SCH (08:36)
[2016-04-07] MEDS: BACLOFEN 10 MG TAB PO SCH ×2 (08:38→21:12)
[2016-04-07] MEDS: PROPRANOLOL HCL 80 MG TAB PO SCH (08:38)
[2016-04-07] MEDS: MELOXICAM 7.5 MG TAB PO SCH (08:39)
[2016-04-07] MEDS: GABAPENTIN 400 MG CAP PO SCH ×3 (08:40→21:12)
[2016-04-07] MEDS: GABAPENTIN 100 MG CAP PO SCH ×3 (08:40→21:13)
[2016-04-07] MEDS: PANTOprazole SOD 40 MG TAB PO SCH (08:41)
[2016-04-07] MEDS: FLUTICASONE PROPIONATE NA SPR 16 GM BTL NAE SCH (09:00)
[2016-04-07] MEDS: LIDODERM (LIDOCAINE) PATCH 5% TD SCH (12:47)
[2016-04-07] MEDS: MAGNESIUM HYDROXIDE SUSP 30 ML UDC PO PRN (14:23)
[2016-04-07] MEDS: METFORMIN HCL 850 MG TAB PO SCH (17:19)
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
[2016-04-07] MEDS: CLOZAPINE 25 MG TAB PO SCH (21:11)
[2016-04-07] MEDS: BENZTROPINE MESYLATE 1 MG TAB PO SCH (21:12)
[2016-04-08] MEDS: LEVOTHYROXINE 125 MCG TAB PO SCH (06:47)
[2016-04-08 07:01] VITALS: BP_SYST 101; BP_SYST 120; BP_DIAS 67; BP_DIAS 80; PULSE 81; PULSE 83; TEMP 36.6
[2016-04-08] MEDS: BENZTROPINE MESYLATE 1 MG TAB PO SCH ×2 (08:26→21:00)
[2016-04-08] MEDS: TAMSULOSIN HCL 0.4 MG CAP PO SCH (08:27)
[2016-04-08] MEDS: DULOXETINE HCL 60 MG CAP PO SCH (08:27)
[2016-04-08] MEDS: PROPRANOLOL HCL 80 MG TAB PO SCH (08:29)
[2016-04-08] MEDS: BACLOFEN 10 MG TAB PO SCH ×2 (08:29→20:59)
[2016-04-08] MEDS: MELOXICAM 7.5 MG TAB PO SCH (08:30)
[2016-04-08] MEDS: GABAPENTIN 100 MG CAP PO SCH ×3 (08:30→21:00)
[2016-04-08] MEDS: GABAPENTIN 400 MG CAP PO SCH ×3 (08:31→20:59)
[2016-04-08] MEDS: PANTOprazole SOD 40 MG TAB PO SCH (08:31)
[2016-04-08] MEDS: FLUTICASONE PROPIONATE NA SPR 16 GM BTL NAE SCH (08:39)
[2016-04-08] MEDS: LIDODERM (LIDOCAINE) PATCH 5% TD SCH (09:00)
--- NOTE | 2016-04-08 12:19 | Medical Consult ---
Consultation Note Consultation Note DATE OF EVALUATION: 04/06/2016 CHIEF COMPLAINT: Right wrist pain. HISTORY OF PRESENT ILLNESS: 31-year-old female, right-hand dominant, admitted to the psychiatric unit, for recent hallucinations. She has a history of chronic pain, bulging disks from her cervical and lumbar spine, continues with several week history of right hand/wrist pain, with swelling and no obvious injury. She also notes numbness and tingling of the ulnar 2 digits. She is awaiting transfer to [place]. She has not had the EMG nerve conduction study performed. She has not been wearing her cockup wrist splint. PAST MEDICAL HISTORY: Chronic pain, head injury, depression, hallucinations, falls, cervicalgia, hypokalemia, mood disorder, multiple drug overdose is, UTI, lethargy, GERD, migraines, hypothyroidism, neurogenic bladder secondary to previous spine surgery. PAST SURGICAL HISTORY: Lumbar spine by surgeons at [facility]. MEDICATIONS: Noted in the EMR. ALLERGIES: Question of bilateral allergies to erythromycin, Keflex, penicillin, sulfa drugs. FAMILY HISTORY: Depression and anxiety, heart disease, dyslipidemia all with her father. Brother is a type II diabetic. SOCIAL HISTORY: She is on disability. REVIEW OF SYSTEMS: Unremarkable. PHYSICAL EXAM: Patient is in no acute distress breathing easily at 16 breaths per minute. The patient ambulates with a normal gait. They have a flat affect. They weigh 99 kg and are 173 cm tall. Focusing on her right upper extremity, she has 2+ radial pulse, sensation to light touch is decreased over the ulnar 3 digits. Her motor to her median, radial, ulnar, AIN, and PIN is 4+/5. She does has decreased swelling about the dorsum of the hand. She is tender to palpation over the dorsal ulnar aspect of the wrist. The wrist and hand are soft. Positive Tinel's along the cubital tunnel, negative carpal tunnel. RADIOGRAPHS: 3 views of the right wrist done March 10 and 2015, show no evidence of fracture or dislocation MRI: Cervical spine, shows cervical spondylosis with herniation at C5-6. IMPRESSION: Right wrist pain and swelling, upper extremity numbness, likely secondarily to cervical etiology versus cubital tunnel syndrome. PLAN: Patient will be treated conservatively with ice, cockup wrist splint, avoiding heavy lifting. An EMG nerve conduction study could be obtained as an outpatient, to determine if the numbness has a cervical or more peripheral entrapment. May continue with Tylenol for pain control and alternating with anti-inflammatory's. She may follow-up as an outpatient or with orthopedics in [place]. If there are any other orthopedic issues during her hospitalization please recall orthopedics. Thank you for limited to participate in Ms. Almendarez's care.
[2016-04-08] MEDS: LACTULOSE SYRUP 10 GM/15 ML BTL 473 ML PO PRN (14:23)
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
[2016-04-08] MEDS: METFORMIN HCL 850 MG TAB PO SCH (18:57)
[2016-04-08] MEDS: hydrOXYzine HCL 25 MG TAB PO PRN (20:59)
[2016-04-08] MEDS: CLOZAPINE 25 MG TAB PO SCH (21:00)
[2016-04-09 07:08] VITALS: BP_SYST 102; BP_SYST 95; BP_DIAS 63; BP_DIAS 73; PULSE 104; PULSE 94; TEMP 36.7
[2016-04-09] MEDS: LEVOTHYROXINE 125 MCG TAB PO SCH (08:00)
[2016-04-09] MEDS: FLUTICASONE PROPIONATE NA SPR 16 GM BTL NAE SCH (09:00)
[2016-04-09] MEDS: DULOXETINE HCL 60 MG CAP PO SCH (09:16)
[2016-04-09] MEDS: TAMSULOSIN HCL 0.4 MG CAP PO SCH (09:16)
[2016-04-09] MEDS: PROPRANOLOL HCL 80 MG TAB PO SCH (09:17)
[2016-04-09] MEDS: MELOXICAM 7.5 MG TAB PO SCH (09:18)
[2016-04-09] MEDS: BACLOFEN 10 MG TAB PO SCH ×2 (09:18→21:20)
[2016-04-09] MEDS: GABAPENTIN 400 MG CAP PO SCH ×3 (09:19→21:21)
[2016-04-09] MEDS: BENZTROPINE MESYLATE 1 MG TAB PO SCH ×2 (09:19→21:20)
[2016-04-09] MEDS: GABAPENTIN 100 MG CAP PO SCH ×3 (09:19→21:21)
[2016-04-09] MEDS: PANTOprazole SOD 40 MG TAB PO SCH (09:19)
[2016-04-09] MEDS: LIDODERM (LIDOCAINE) PATCH 5% TD SCH (09:19)
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
[2016-04-09] MEDS: METFORMIN HCL 850 MG TAB PO SCH (17:50)
[2016-04-09] MEDS: hydrOXYzine HCL 25 MG TAB PO PRN (21:20)
[2016-04-09] MEDS: CLOZAPINE 25 MG TAB PO SCH (21:21)
[2016-04-10 06:57] VITALS: BP_SYST 104; BP_SYST 107; BP_DIAS 60; BP_DIAS 71; PULSE 68; PULSE 86; TEMP 36.4
[2016-04-10] MEDS: DULOXETINE HCL 60 MG CAP PO SCH (08:50)
[2016-04-10] MEDS: BENZTROPINE MESYLATE 1 MG TAB PO SCH ×2 (08:50→21:45)
[2016-04-10] MEDS: LEVOTHYROXINE 125 MCG TAB PO SCH (08:50)
[2016-04-10] MEDS: TAMSULOSIN HCL 0.4 MG CAP PO SCH (08:50)
[2016-04-10] MEDS: BACLOFEN 10 MG TAB PO SCH ×2 (08:51→21:45)
[2016-04-10] MEDS: GABAPENTIN 400 MG CAP PO SCH ×3 (08:51→21:45)
[2016-04-10] MEDS: PANTOprazole SOD 40 MG TAB PO SCH (08:51)
[2016-04-10] MEDS: MELOXICAM 7.5 MG TAB PO SCH (08:51)
[2016-04-10] MEDS: GABAPENTIN 100 MG CAP PO SCH ×3 (08:51→21:45)
[2016-04-10] MEDS: PROPRANOLOL HCL 80 MG TAB PO SCH (08:51)
[2016-04-10] MEDS: LIDODERM (LIDOCAINE) PATCH 5% TD SCH (08:52)
[2016-04-10] MEDS: FLUTICASONE PROPIONATE NA SPR 16 GM BTL NAE SCH (08:58)
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
[2016-04-10] MEDS: METFORMIN HCL 850 MG TAB PO SCH (17:26)
[2016-04-10] MEDS: LACTULOSE SYRUP 10 GM/15 ML BTL 473 ML PO PRN (20:06)
[2016-04-10] MEDS: CLOZAPINE 25 MG TAB PO SCH (21:45)
[2016-04-11 06:43] VITALS: BP_SYST 114; BP_SYST 118; BP_DIAS 75; BP_DIAS 76; PULSE 86; PULSE 89; TEMP 36.8
[2016-04-11] MEDS: LEVOTHYROXINE 125 MCG TAB PO SCH (06:55)
[2016-04-11] MEDS: FLUTICASONE PROPIONATE NA SPR 16 GM BTL NAE SCH (09:00)
[2016-04-11] MEDS: PROPRANOLOL HCL 80 MG TAB PO SCH (09:00)
--- NOTE | 2016-04-11 09:22 | Psychiatric Progress Notes ---
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 (0.00-0.02)
[2016-04-11] MEDS: BENZTROPINE MESYLATE 1 MG TAB PO SCH ×2 (10:30→21:07)
[2016-04-11] MEDS: TAMSULOSIN HCL 0.4 MG CAP PO SCH (10:31)
[2016-04-11] MEDS: DULOXETINE HCL 60 MG CAP PO SCH (10:31)
[2016-04-11] MEDS: BACLOFEN 10 MG TAB PO SCH ×2 (10:32→21:07)
[2016-04-11] MEDS: GABAPENTIN 400 MG CAP PO SCH ×3 (10:33→21:07)
[2016-04-11] MEDS: GABAPENTIN 100 MG CAP PO SCH ×3 (10:33→21:07)
[2016-04-11] MEDS: MELOXICAM 7.5 MG TAB PO SCH (10:33)
[2016-04-11] MEDS: PANTOprazole SOD 40 MG TAB PO SCH (10:34)
[2016-04-11] MEDS: LIDODERM (LIDOCAINE) PATCH 5% TD SCH (10:34)
[2016-04-11] MEDS: METFORMIN HCL 850 MG TAB PO SCH (17:25)
[2016-04-11] MEDS: hydrOXYzine HCL 25 MG TAB PO PRN (21:06)
[2016-04-11] MEDS: CLOZAPINE 25 MG TAB PO SCH (21:07)
[2016-04-12 06:52] VITALS: BP_SYST 106; BP_SYST 114; BP_DIAS 70; BP_DIAS 78; PULSE 81; PULSE 83; TEMP 36.6
[2016-04-12] MEDS: LEVOTHYROXINE 125 MCG TAB PO SCH (08:05)
[2016-04-12] MEDS: BENZTROPINE MESYLATE 1 MG TAB PO SCH (09:13)
[2016-04-12] MEDS: DULOXETINE HCL 60 MG CAP PO SCH (09:14)
[2016-04-12] MEDS: TAMSULOSIN HCL 0.4 MG CAP PO SCH (09:14)
[2016-04-12] MEDS: PROPRANOLOL HCL 80 MG TAB PO SCH (09:15)
[2016-04-12] MEDS: BACLOFEN 10 MG TAB PO SCH ×2 (09:15→22:34)
[2016-04-12] MEDS: MELOXICAM 7.5 MG TAB PO SCH (09:15)
[2016-04-12] MEDS: GABAPENTIN 400 MG CAP PO SCH ×3 (09:15→22:34)
[2016-04-12] MEDS: GABAPENTIN 100 MG CAP PO SCH ×3 (09:15→22:34)
[2016-04-12] MEDS: FLUTICASONE PROPIONATE NA SPR 16 GM BTL NAE SCH (09:16)
[2016-04-12] MEDS: LIDODERM (LIDOCAINE) PATCH 5% TD SCH (09:16)
[2016-04-12] MEDS: PANTOprazole SOD 40 MG TAB PO SCH (09:16)
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
[2016-04-12] MEDS ORDERED: METOCLOPRAMIDE HCL 10 MG TAB PO ONE (10:30)
[2016-04-12] MEDS: METFORMIN HCL 850 MG TAB PO SCH (17:23)
[2016-04-12] MEDS: ACETAMINOPHEN 325 MG TAB PO PRN (17:59)
[2016-04-12] MEDS: CLOZAPINE 25 MG TAB PO SCH (22:33)
[2016-04-13 07:01] VITALS: BP_SYST 101; BP_SYST 111; BP_DIAS 70; BP_DIAS 75; PULSE 77; PULSE 97; TEMP 36.4
[2016-04-13 07:36] LABS: BASO % 0.3 %; BASO ABS # 0.02 K/uL (0-0.2); COMPLETE YES; EOS % 4.8 %; HEMATOCRIT 37.5 % (37-47); IG% 0.2 %; LYMPH % 33.5 %; LYMPH ABS # 2.04 K/uL (1.2-3.4); MEAN CORPUSCULAR HEMOGLOBIN 28.8 pg (25-34); MEAN CORPUSCULAR HGB CONC 33.1 g/dl (32-36); MEAN PLATELET VOLUME 9.5 fL (7.4-10.4); MONO % 7.1 %; NEUT % 54.1 %; PLATELET COUNT 259 K/uL (130-400); RED BLOOD COUNT 4.31 M/uL (4.2-5.4); WHITE BLOOD COUNT 6.09 K/uL (4.8-10.8)
[2016-04-13] MEDS: LEVOTHYROXINE 125 MCG TAB PO SCH (09:44)
[2016-04-13] MEDS: TAMSULOSIN HCL 0.4 MG CAP PO SCH (09:45)
[2016-04-13] MEDS: PROPRANOLOL HCL 80 MG TAB PO SCH (09:45)
[2016-04-13] MEDS: BACLOFEN 10 MG TAB PO SCH ×2 (09:45→21:13)
[2016-04-13] MEDS: DULOXETINE HCL 60 MG CAP PO SCH (09:45)
[2016-04-13] MEDS: PANTOprazole SOD 40 MG TAB PO SCH (09:46)
[2016-04-13] MEDS: GABAPENTIN 100 MG CAP PO SCH ×3 (09:46→21:13)
[2016-04-13] MEDS: METOCLOPRAMIDE HCL 10 MG TAB PO SCH (09:46)
[2016-04-13] MEDS: MELOXICAM 7.5 MG TAB PO SCH (09:46)
[2016-04-13] MEDS: GABAPENTIN 400 MG CAP PO SCH ×3 (09:46→21:13)
[2016-04-13] MEDS: LIDODERM (LIDOCAINE) PATCH 5% TD SCH (09:47)
[2016-04-13] MEDS: FLUTICASONE PROPIONATE NA SPR 16 GM BTL NAE SCH (09:53)
[2016-04-13 13:46] VITALS: BP 112/79; PULSE 84
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
[2016-04-13] MEDS: LACTULOSE SYRUP 10 GM/15 ML BTL 473 ML PO PRN (16:29)
[2016-04-13] MEDS: METFORMIN HCL 850 MG TAB PO SCH (17:11)
[2016-04-13] MEDS: CLOZAPINE 25 MG TAB PO SCH (21:13)
[2016-04-14 07:07] VITALS: BP 119/77; PULSE 72; TEMP 36.6
[2016-04-14] MEDS: LEVOTHYROXINE 125 MCG TAB PO SCH (07:50)
[2016-04-14] MEDS: FLUTICASONE PROPIONATE NA SPR 16 GM BTL NAE SCH (09:00)
[2016-04-14] MEDS: LIDODERM (LIDOCAINE) PATCH 5% TD SCH ×2 (09:00→10:07)
[2016-04-14] MEDS: DULOXETINE HCL 60 MG CAP PO SCH (09:38)
[2016-04-14] MEDS: TAMSULOSIN HCL 0.4 MG CAP PO SCH (09:38)
[2016-04-14] MEDS: BACLOFEN 10 MG TAB PO SCH ×2 (09:39→21:38)
[2016-04-14] MEDS: PROPRANOLOL HCL 80 MG TAB PO SCH (09:39)
[2016-04-14] MEDS: MELOXICAM 7.5 MG TAB PO SCH (09:40)
[2016-04-14] MEDS: GABAPENTIN 100 MG CAP PO SCH ×3 (09:40→21:38)
[2016-04-14] MEDS: GABAPENTIN 400 MG CAP PO SCH ×3 (09:40→21:38)
[2016-04-14] MEDS: PANTOprazole SOD 40 MG TAB PO SCH (09:41)
[2016-04-14] MEDS: METOCLOPRAMIDE HCL 10 MG TAB PO SCH (09:41)
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
[2016-04-14] MEDS: MAGNESIUM HYDROXIDE SUSP 30 ML UDC PO PRN (14:55)
[2016-04-14] MEDS: METFORMIN HCL 850 MG TAB PO SCH (17:15)
[2016-04-14] MEDS: CLOZAPINE 25 MG TAB PO SCH (21:37)
[2016-04-14] MEDS: hydrOXYzine HCL 25 MG TAB PO PRN (21:40)
[2016-04-15 07:04] VITALS: BP_SYST 112; BP_SYST 113; BP_DIAS 69; BP_DIAS 77; PULSE 89; PULSE 92; TEMP 36.9
[2016-04-15] MEDS: LEVOTHYROXINE 125 MCG TAB PO SCH (08:25)
[2016-04-15] MEDS: FLUTICASONE PROPIONATE NA SPR 16 GM BTL NAE SCH (08:52)
[2016-04-15] MEDS: DULOXETINE HCL 60 MG CAP PO SCH (08:53)
[2016-04-15] MEDS: TAMSULOSIN HCL 0.4 MG CAP PO SCH (08:54)
[2016-04-15] MEDS: GABAPENTIN 100 MG CAP PO SCH ×3 (08:55→21:23)
[2016-04-15] MEDS: PROPRANOLOL HCL 80 MG TAB PO SCH (08:55)
[2016-04-15] MEDS: BACLOFEN 10 MG TAB PO SCH ×2 (08:55→21:23)
[2016-04-15] MEDS: MELOXICAM 7.5 MG TAB PO SCH (08:55)
[2016-04-15] MEDS: PANTOprazole SOD 40 MG TAB PO SCH (08:56)
[2016-04-15] MEDS: METOCLOPRAMIDE HCL 10 MG TAB PO SCH (08:56)
[2016-04-15] MEDS: GABAPENTIN 400 MG CAP PO SCH ×3 (08:56→21:23)
[2016-04-15] MEDS: LIDODERM (LIDOCAINE) PATCH 5% TD SCH (08:57)
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
[2016-04-15] MEDS: METFORMIN HCL 850 MG TAB PO SCH (17:08)
[2016-04-15] MEDS: CLOZAPINE 25 MG TAB PO SCH (21:23)
[2016-04-15] MEDS: hydrOXYzine HCL 25 MG TAB PO PRN (21:24)
[2016-04-16 07:05] VITALS: BP_SYST 129; BP_SYST 134; BP_DIAS 89; BP_DIAS 94; PULSE 82; PULSE 86; TEMP 36.5
[2016-04-16] MEDS: LEVOTHYROXINE 125 MCG TAB PO SCH (07:09)
[2016-04-16] MEDS: LIDODERM (LIDOCAINE) PATCH 5% TD SCH (09:45)
[2016-04-16] MEDS: FLUTICASONE PROPIONATE NA SPR 16 GM BTL NAE SCH (09:45)
[2016-04-16] MEDS: DULOXETINE HCL 60 MG CAP PO SCH (09:47)
[2016-04-16] MEDS: TAMSULOSIN HCL 0.4 MG CAP PO SCH (09:47)
[2016-04-16] MEDS: BACLOFEN 10 MG TAB PO SCH ×2 (09:48→20:56)
[2016-04-16] MEDS: PROPRANOLOL HCL 80 MG TAB PO SCH (09:48)
[2016-04-16] MEDS: GABAPENTIN 400 MG CAP PO SCH ×3 (09:49→20:56)
[2016-04-16] MEDS: METOCLOPRAMIDE HCL 10 MG TAB PO SCH (09:49)
[2016-04-16] MEDS: MELOXICAM 7.5 MG TAB PO SCH (09:49)
[2016-04-16] MEDS: PANTOprazole SOD 40 MG TAB PO SCH (09:49)
[2016-04-16] MEDS: GABAPENTIN 100 MG CAP PO SCH ×3 (09:49→20:56)
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
[2016-04-16] MEDS: MAGNESIUM HYDROXIDE SUSP 30 ML UDC PO PRN (16:38)
[2016-04-16] MEDS: METFORMIN HCL 850 MG TAB PO SCH (17:15)
[2016-04-16] MEDS: CLOZAPINE 25 MG TAB PO SCH (20:57)
[2016-04-16] MEDS: hydrOXYzine HCL 25 MG TAB PO PRN (21:01)
[2016-04-17] MEDS: LEVOTHYROXINE 125 MCG TAB PO SCH (06:43)
[2016-04-17 06:56] VITALS: BP_SYST 109; BP_SYST 93; BP_DIAS 70; BP_DIAS 76; PULSE 76; PULSE 80; TEMP 36.9
[2016-04-17] MEDS: TAMSULOSIN HCL 0.4 MG CAP PO SCH (09:54)
[2016-04-17] MEDS: DULOXETINE HCL 60 MG CAP PO SCH (09:54)
[2016-04-17] MEDS: PROPRANOLOL HCL 80 MG TAB PO SCH (09:55)
[2016-04-17] MEDS: MELOXICAM 7.5 MG TAB PO SCH (09:56)
[2016-04-17] MEDS: BACLOFEN 10 MG TAB PO SCH ×2 (09:56→21:05)
[2016-04-17] MEDS: METOCLOPRAMIDE HCL 10 MG TAB PO SCH (09:57)
[2016-04-17] MEDS: GABAPENTIN 100 MG CAP PO SCH ×3 (09:57→21:06)
[2016-04-17] MEDS: PANTOprazole SOD 40 MG TAB PO SCH (09:57)
[2016-04-17] MEDS: GABAPENTIN 400 MG CAP PO SCH ×3 (09:57→21:06)
[2016-04-17] MEDS: LIDODERM (LIDOCAINE) PATCH 5% TD SCH (09:59)
[2016-04-17] MEDS: FLUTICASONE PROPIONATE NA SPR 16 GM BTL NAE SCH (10:08)
--- NOTE | 2016-04-17 10:44 | Psychiatric Progress Notes ---
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 (Auto) 3.30 K/uL (1.4-6.5) Lymphocytes # (Auto) 2.04 K/uL (1.2-3.4) Monocytes # (Auto) 0.43 K/uL (0.11-0.59) Eosinophils # (Auto) 0.29 K/uL (0-0.5) Basophils # (Auto) 0.02 K/uL (0-0.2) RDW Standard Deviation 44.6 fL (36.4-46.3) RDW Coefficient of Variation 14.0 % (11.5-14.5) Immature Granulocyte % (Auto) 0.2 % Immature Granulocyte # (Auto) 0.01 K/uL (0.00-0.02)
[2016-04-17] MEDS: MAGNESIUM HYDROXIDE SUSP 30 ML UDC PO PRN (18:28)
[2016-04-17] MEDS: METFORMIN HCL 850 MG TAB PO SCH (18:28)
[2016-04-17] MEDS: CLOZAPINE 25 MG TAB PO SCH (21:05)
[2016-04-17] MEDS: hydrOXYzine HCL 25 MG TAB PO PRN (21:10)
[2016-04-18] MEDS: LEVOTHYROXINE 125 MCG TAB PO SCH (06:37)
[2016-04-18 06:40] VITALS: BP_SYST 134; BP_SYST 136; BP_DIAS 87; BP_DIAS 96; PULSE 80; PULSE 88; TEMP 36.7
[2016-04-18] MEDS: FLUTICASONE PROPIONATE NA SPR 16 GM BTL NAE SCH (09:00)
[2016-04-18] MEDS: LIDODERM (LIDOCAINE) PATCH 5% TD SCH (09:00)
[2016-04-18] MEDS: TAMSULOSIN HCL 0.4 MG CAP PO SCH (09:02)
[2016-04-18] MEDS: DULOXETINE HCL 60 MG CAP PO SCH (09:02)
[2016-04-18] MEDS: BACLOFEN 10 MG TAB PO SCH ×2 (09:04→21:25)
[2016-04-18] MEDS: GABAPENTIN 400 MG CAP PO SCH ×3 (09:04→21:25)
[2016-04-18] MEDS: MELOXICAM 7.5 MG TAB PO SCH (09:04)
[2016-04-18] MEDS: PROPRANOLOL HCL 80 MG TAB PO SCH (09:04)
[2016-04-18] MEDS: GABAPENTIN 100 MG CAP PO SCH ×3 (09:04→21:25)
[2016-04-18] MEDS: PANTOprazole SOD 40 MG TAB PO SCH (09:05)
[2016-04-18] MEDS: METOCLOPRAMIDE HCL 10 MG TAB PO SCH (09:05)
--- NOTE | 2016-04-18 09:54 | Psychiatric Progress Notes ---
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 Urobilinogen NEG (NEG) Urine Leukocyte Esterase NEG (NEG) White Blood Count 6.09 K/uL (4.8-10.8) Red Blood Count 4.31 M/uL (4.2-5.4) Hemoglobin 12.4 g/dL (12.0-16.0) Hematocrit 37.5 % (37-47) Mean Corpuscular Volume 87.0 fL (80-100) Mean Corpuscular Hemoglobin 28.8 pg (25-34) Mean Corpuscular Hemoglobin Concent 33.1 g/dl (32-36) Platelet Count 259 K/uL (130-400) Mean Platelet Volume 9.5 fL (7.4-10.4) Neutrophils (%) (Auto) 54.1 % Lymphocytes (%) (Auto) 33.5 % Monocytes (%) (Auto) 7.1 % Eosinophils (%) (Auto) 4.8 % Basophils (%) (Auto) 0.3 % Neutrophils # (Auto) 3.30 K/uL (1.4-6.5) Lymphocytes # (Auto) 2.04 K/uL (1.2-3.4) Monocytes # (Auto) 0.43 K/uL (0.11-0.59) Eosinophils # (Auto) 0.29 K/uL (0-0.5) Basophils # (Auto) 0.02 K/uL (0-0.2) RDW Standard Deviation 44.6 fL (36.4-46.3) RDW Coefficient of Variation 14.0 % (11.5-14.5) Immature Granulocyte % (Auto) 0.2 % Immature Granulocyte # (Auto) 0.01 K/uL (0.00-0.02)
[2016-04-18] MEDS: ACETAMINOPHEN 325 MG TAB PO PRN (17:11)
[2016-04-18] MEDS: METFORMIN HCL 850 MG TAB PO SCH (17:12)
[2016-04-18] MEDS: CLOZAPINE 25 MG TAB PO SCH (21:25)
[2016-04-19 06:42] VITALS: BP_SYST 110; BP_SYST 117; BP_DIAS 78; BP_DIAS 82; PULSE 83; PULSE 84; TEMP 36.6
[2016-04-19] MEDS: LEVOTHYROXINE 125 MCG TAB PO SCH (07:40)
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
[2016-04-19] MEDS: FLUTICASONE PROPIONATE NA SPR 16 GM BTL NAE SCH (09:00)
[2016-04-19] MEDS: TAMSULOSIN HCL 0.4 MG CAP PO SCH (09:17)
[2016-04-19] MEDS: DULOXETINE HCL 60 MG CAP PO SCH (09:17)
[2016-04-19] MEDS: PROPRANOLOL HCL 80 MG TAB PO SCH (09:18)
[2016-04-19] MEDS: BACLOFEN 10 MG TAB PO SCH ×2 (09:19→21:16)
[2016-04-19] MEDS: GABAPENTIN 100 MG CAP PO SCH ×3 (09:19→21:16)
[2016-04-19] MEDS: MELOXICAM 7.5 MG TAB PO SCH (09:19)
[2016-04-19] MEDS: LIDODERM (LIDOCAINE) PATCH 5% TD SCH (09:20)
[2016-04-19] MEDS: GABAPENTIN 400 MG CAP PO SCH ×3 (09:20→21:16)
[2016-04-19] MEDS: PANTOprazole SOD 40 MG TAB PO SCH (09:20)
[2016-04-19] MEDS: METFORMIN HCL 850 MG TAB PO SCH ×2 (17:11→17:22)
[2016-04-19] MEDS: MAGNESIUM HYDROXIDE SUSP 30 ML UDC PO PRN (17:38)
[2016-04-19] MEDS: CLOZAPINE 25 MG TAB PO SCH (21:16)
[2016-04-19] MEDS: hydrOXYzine HCL 25 MG TAB PO PRN (21:16)
[2016-04-20 06:56] VITALS: BP_SYST 100; BP_SYST 95; BP_DIAS 66; BP_DIAS 74; PULSE 86; PULSE 90; TEMP 36.9
[2016-04-20] MEDS: LEVOTHYROXINE 125 MCG TAB PO SCH (07:37)
[2016-04-20 08:12] LABS: BASO % 0.3 %; BASO ABS # 0.02 K/uL (0-0.2); COMPLETE YES; EOS % 3.1 %; HEMATOCRIT 40.3 % (37-47); IG% 0.1 %; LYMPH ABS # 1.65 K/uL (1.2-3.4); MEAN CELL VOLUME 85.7 fL (80-100); MEAN CORPUSCULAR HEMOGLOBIN 28.3 pg (25-34); MEAN PLATELET VOLUME 9.5 fL (7.4-10.4); MONO % 7.1 %; NEUT % 67.4 %; PLATELET COUNT 283 K/uL (130-400); WHITE BLOOD COUNT 7.51 K/uL (4.8-10.8)
[2016-04-20] MEDS: FLUTICASONE PROPIONATE NA SPR 16 GM BTL NAE SCH (09:00)
[2016-04-20] MEDS: DULOXETINE HCL 60 MG CAP PO SCH (09:10)
[2016-04-20] MEDS: TAMSULOSIN HCL 0.4 MG CAP PO SCH (09:11)
[2016-04-20] MEDS: BACLOFEN 10 MG TAB PO SCH ×2 (09:13→20:40)
[2016-04-20] MEDS: GABAPENTIN 100 MG CAP PO SCH ×3 (09:13→20:40)
[2016-04-20] MEDS: MELOXICAM 7.5 MG TAB PO SCH (09:14)
[2016-04-20] MEDS: GABAPENTIN 400 MG CAP PO SCH ×3 (09:14→20:40)
[2016-04-20] MEDS: LIDODERM (LIDOCAINE) PATCH 5% TD SCH (09:15)
[2016-04-20] MEDS: PANTOprazole SOD 40 MG TAB PO SCH (09:15)
[2016-04-20] MEDS: PROPRANOLOL HCL 80 MG TAB PO SCH (09:23)
[2016-04-20 09:24] VITALS: BP 113/78; PULSE 88
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
[2016-04-20] MEDS: METFORMIN HCL 850 MG TAB PO SCH (17:32)
[2016-04-20] MEDS: CLOZAPINE 25 MG TAB PO SCH (20:40)
[2016-04-21] MEDS: LEVOTHYROXINE 125 MCG TAB PO SCH (06:37)
[2016-04-21 07:05] VITALS: BP_SYST 108; BP_SYST 116; BP_DIAS 74; PULSE 73; PULSE 76; TEMP 36.6
[2016-04-21] MEDS: FLUTICASONE PROPIONATE NA SPR 16 GM BTL NAE SCH (09:00)
[2016-04-21] MEDS: DULOXETINE HCL 60 MG CAP PO SCH (09:10)
[2016-04-21] MEDS: TAMSULOSIN HCL 0.4 MG CAP PO SCH (09:10)
[2016-04-21] MEDS: BACLOFEN 10 MG TAB PO SCH ×2 (09:13→21:16)
[2016-04-21] MEDS: GABAPENTIN 400 MG CAP PO SCH ×3 (09:13→21:14)
[2016-04-21] MEDS: PANTOprazole SOD 40 MG TAB PO SCH (09:14)
[2016-04-21] MEDS: MELOXICAM 7.5 MG TAB PO SCH (09:15)
[2016-04-21] MEDS: GABAPENTIN 100 MG CAP PO SCH ×3 (09:15→21:15)
[2016-04-21] MEDS: PROPRANOLOL HCL 80 MG TAB PO SCH (10:23)
[2016-04-21] MEDS: LIDODERM (LIDOCAINE) PATCH 5% TD SCH (10:24)
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
[2016-04-21] MEDS: MAGNESIUM HYDROXIDE SUSP 30 ML UDC PO PRN (12:50)
[2016-04-21] MEDS: METFORMIN HCL 500 MG TAB PO SCH (17:25)
[2016-04-21] MEDS: CLOZAPINE 25 MG TAB PO SCH (21:15)
[2016-04-22] MEDS: LEVOTHYROXINE 125 MCG TAB PO SCH (06:44)
[2016-04-22 06:59] VITALS: BP_SYST 107; BP_SYST 111; BP_DIAS 71; BP_DIAS 74; PULSE 74; PULSE 76; TEMP 36.3
[2016-04-22] MEDS: LIDODERM (LIDOCAINE) PATCH 5% TD SCH ×2 (09:00→09:57)
[2016-04-22] MEDS: FLUTICASONE PROPIONATE NA SPR 16 GM BTL NAE SCH (09:00)
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
[2016-04-22] MEDS: DULOXETINE HCL 60 MG CAP PO SCH (09:52)
[2016-04-22] MEDS: TAMSULOSIN HCL 0.4 MG CAP PO SCH (09:53)
[2016-04-22] MEDS: BACLOFEN 10 MG TAB PO SCH ×2 (09:54→21:07)
[2016-04-22] MEDS: PROPRANOLOL HCL 80 MG TAB PO SCH (09:54)
[2016-04-22] MEDS: MELOXICAM 7.5 MG TAB PO SCH (09:55)
[2016-04-22] MEDS: GABAPENTIN 400 MG CAP PO SCH ×3 (09:56→21:07)
[2016-04-22] MEDS: GABAPENTIN 100 MG CAP PO SCH ×3 (09:56→21:07)
[2016-04-22] MEDS: PANTOprazole SOD 40 MG TAB PO SCH (09:57)
[2016-04-22] MEDS: MAGNESIUM HYDROXIDE SUSP 30 ML UDC PO PRN (11:30)
[2016-04-22] MEDS: LACTULOSE SYRUP 10 GM/15 ML BTL 473 ML PO PRN (13:47)
[2016-04-22] MEDS: METFORMIN HCL 500 MG TAB PO SCH (17:37)
[2016-04-22] MEDS: CLOZAPINE 25 MG TAB PO SCH (21:07)
[2016-04-22] MEDS: hydrOXYzine HCL 25 MG TAB PO PRN (21:13)
[2016-04-23] MEDS: LEVOTHYROXINE 125 MCG TAB PO SCH (06:39)
[2016-04-23 07:06] VITALS: BP_SYST 112; BP_SYST 120; BP_DIAS 68; BP_DIAS 80; PULSE 72; PULSE 77; TEMP 36.4
[2016-04-23] MEDS: DULOXETINE HCL 60 MG CAP PO SCH (08:39)
[2016-04-23] MEDS: TAMSULOSIN HCL 0.4 MG CAP PO SCH (08:40)
[2016-04-23] MEDS: BACLOFEN 10 MG TAB PO SCH ×2 (08:43→20:55)
[2016-04-23] MEDS: PROPRANOLOL HCL 80 MG TAB PO SCH (08:43)
[2016-04-23] MEDS: MELOXICAM 7.5 MG TAB PO SCH (08:44)
[2016-04-23] MEDS: GABAPENTIN 400 MG CAP PO SCH ×3 (08:44→20:56)
[2016-04-23] MEDS: PANTOprazole SOD 40 MG TAB PO SCH (08:44)
[2016-04-23] MEDS: LIDODERM (LIDOCAINE) PATCH 5% TD SCH (08:45)
[2016-04-23] MEDS: GABAPENTIN 100 MG CAP PO SCH ×3 (08:45→20:56)
[2016-04-23] MEDS: FLUTICASONE PROPIONATE NA SPR 16 GM BTL NAE SCH (08:46)
--- NOTE | 2016-04-23 10:09 | Psychiatric Progress Notes ---
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 (0.11-0.59) Eosinophils # (Auto) 0.23 K/uL (0-0.5) Basophils # (Auto) 0.02 K/uL (0-0.2) RDW Standard Deviation 42.9 fL (36.4-46.3) RDW Coefficient of Variation 13.7 % (11.5-14.5) Immature Granulocyte % (Auto) 0.1 % Immature Granulocyte # (Auto) 0.01 K/uL (0.00-0.02)
[2016-04-23] MEDS: METFORMIN HCL 500 MG TAB PO SCH (17:27)
[2016-04-23] MEDS: CLOZAPINE 25 MG TAB PO SCH (20:54)
[2016-04-23] MEDS: hydrOXYzine HCL 25 MG TAB PO PRN (21:02)
[2016-04-24] MEDS: LEVOTHYROXINE 125 MCG TAB PO SCH (06:35)
[2016-04-24 06:48] VITALS: BP_SYST 105; BP_SYST 106; BP_SYST 108; BP_SYST 117; BP_DIAS 70; BP_DIAS 72; BP_DIAS 78; PULSE 67; PULSE 78; PULSE 79; PULSE 80; TEMP 36.6; TEMP 36.7
[2016-04-24] MEDS: LIDODERM (LIDOCAINE) PATCH 5% TD SCH (09:00)
[2016-04-24] MEDS: FLUTICASONE PROPIONATE NA SPR 16 GM BTL NAE SCH (09:00)
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
[2016-04-24] MEDS: TAMSULOSIN HCL 0.4 MG CAP PO SCH (09:26)
[2016-04-24] MEDS: DULOXETINE HCL 60 MG CAP PO SCH (09:26)
[2016-04-24] MEDS: PANTOprazole SOD 40 MG TAB PO SCH (09:27)
[2016-04-24] MEDS: BACLOFEN 10 MG TAB PO SCH ×2 (09:28→21:39)
[2016-04-24] MEDS: PROPRANOLOL HCL 80 MG TAB PO SCH (09:28)
[2016-04-24] MEDS: MELOXICAM 7.5 MG TAB PO SCH (09:28)
[2016-04-24] MEDS: GABAPENTIN 100 MG CAP PO SCH ×3 (09:29→21:39)
[2016-04-24] MEDS: GABAPENTIN 400 MG CAP PO SCH ×3 (09:29→21:39)
[2016-04-24] MEDS: METFORMIN HCL 500 MG TAB PO SCH (17:20)
[2016-04-24] MEDS: LACTULOSE SYRUP 10 GM/15 ML BTL 473 ML PO PRN (19:47)
--- NOTE | 2016-04-24 20:53 | Medical Student: BHU Only ---
Psychiatric Progress Note Date of Service: Apr 24, 2016. SUBJECTIVE: The patient was seen and assessed today, and progress was reviewed with nursing. The patient reports doing "okay." She slept twelve hours the previous night but states she is still tired. Her back pain remains a "6" so she finds herself laying down throughout the day as well to relieve pain. She has been attending group therapy and various activity groups, however. She relays that her mood is constantly up and down. Yesterday, she rated mood as a "7" where today it is a "4." She admits to feeling depressed and worthless when she is down but denies any suicidal ideations. Zhanna is frustrated that she is unable to go outside more. She had her weekly weigh-in yesterday and lost one pound in comparison to the previous week. Her goal was 2 pounds per week so she is not enthused by this result. The patient wants to attend more activity groups involving movement and will continue her oatmeal and jello meal plan to work towards her weight goals. She is tolerating her medications well with the exception of hypersalivation which she has been experiencing for some time due to clozapine use. This side effect occurs primarily when sleeping. Zhanna is very anxious when discussing her housing situation. She is ready to leave the [facility] and has been making attempts at finding alternate housing with her sister, a previous patient that has now been discharged, and via sublet through an apartment company downw. She is frustrated that the sister nor previous patient have been answering their phones. On the other hand, Zhanna does seem more motivated than yesterday to move forward. She is interested in returning to her previous job at [employer] and would like to call a personal financial counselor at [employer] to discuss finishing her degree in Criminal Justice. She understands she has limited finances as of now. ROS: Patient continues to have constipation. She states she has not had a bowel movement in two days and prior to that in five days. She states Lactulose helps a lot in passing bowel movements. MSE: Appearance is that of a disheveled, casually dressed female who appears her stated age. The patient is very cooperative with the interview, although clearly very tired. Eye contact is minimal. Patient was seated faced away from interviewer. Motor behavior is slow. Speech: Normal volume, slow rate, monotone, flat affect, depressed mood Thought process: Goal directed but distractible Thought content: Reality based without delusions Perception: Denies illusions or hallucinations Cognition: Attention and sense of time is impaired Intelligence is estimated to be below normal intelligence. Insight is estimated to be impaired. Judgment is estimated to be impaired. ASSESSMENT: On assessment of patient and in conjunction with staff reports, patient appears to be improving. Although she sometimes complains of depressed mood, she continues to deny suicidal ideations and visual/auditory hallucinations. She has been motivated the past few days to find alternate housing to [facility]. In addition, today, she created a "to-do" list of individuals to call regarding housing, employment, and school options. She has shown interest in finishing her criminal justice degree at [employer]. Patient, however, continues to complain of fatigue and debilitating back pain causing her to reside in bed often throughout the day. She is also very focused on her weight loss plan despite suggestions that an oatmeal/jello based diet is not the healthiest option. She will continue to benefit from inpatient treatment with therapy and medication use until a bed is available at [facility]. PLAN: 1. MDD with Psychosis a. Continue Cymbalta 120 mg PO in AM. b. Continue Clozapine 125 mg PO. Continue bi-weekly CBCs. Next CBC is on and PRP will also be obtained. c. Continue haloperidol 5 mg q6h PRN. d. Continue 15 minute checks for safety. e. Continue encouragement to attend group and individual therapy. 2. Chronic Pain a. Nucynta remains discontinued. b. Continue use of heat, ice, and exercise to manage pain. c. Continue baclofen 10 mg BID, gabapentin 1000 mg TID, meloxicam 15 mg qAM, and tylenol 650 mg q4h. 3. History of Opiate Abuse a. Avoid narcotic use. 4. TBI a. No current recommendations per Dr. Morrison. 5. Obesity a. Continue metformin 1000 mg at dinner. b. Continue to encourage patient to walk TID and attend activity groups involving movement. c. Promote healthy eating habits. Continue to advise patient to consume a balanced diet consisting of protein, fruits, and vegetables as opposed to solely oatmeal and jello. d. Patient may continue weekly weigh-ins. However, bi-weekly weigh-ins should be discouraged. 6. Hypothyroidism a. Continue Synthroid 125 mcg daily. 7. GERD a. Continue Protonix 40 mg daily. 8. Constipation a. Continue lactulose 50 gm PO BID PRN. 9. Aftercare Planning PCP: Dr. Sourav CARDENAS Psychiatrist: Dr. Hoffman Therapist: did not follow up Meat Carrier: BRUNILDA Strauss Pain Clinic: [facility] [place] Appointment: 05/16/16 at 9:45 AM Specialist: [facility]
[2016-04-24] MEDS: CLOZAPINE 25 MG TAB PO SCH (21:39)
[2016-04-25] MEDS: LEVOTHYROXINE 125 MCG TAB PO SCH (06:51)
[2016-04-25 06:55] VITALS: BP_SYST 100; BP_SYST 90; BP_DIAS 58; BP_DIAS 63; PULSE 81; PULSE 96; TEMP 36.6
[2016-04-25] MEDS: FLUTICASONE PROPIONATE NA SPR 16 GM BTL NAE SCH (09:00)
[2016-04-25] MEDS: TAMSULOSIN HCL 0.4 MG CAP PO SCH (09:11)
[2016-04-25] MEDS: BACLOFEN 10 MG TAB PO SCH ×2 (09:11→20:53)
[2016-04-25] MEDS: DULOXETINE HCL 60 MG CAP PO SCH (09:11)
[2016-04-25] MEDS: MELOXICAM 7.5 MG TAB PO SCH (09:12)
[2016-04-25] MEDS: GABAPENTIN 100 MG CAP PO SCH ×3 (09:12→20:53)
[2016-04-25] MEDS: PANTOprazole SOD 40 MG TAB PO SCH (09:12)
[2016-04-25] MEDS: GABAPENTIN 400 MG CAP PO SCH ×3 (09:12→20:54)
[2016-04-25] MEDS: PROPRANOLOL HCL 80 MG TAB PO SCH (09:13)
[2016-04-25] MEDS: LIDODERM (LIDOCAINE) PATCH 5% TD SCH (09:13)
[2016-04-25 09:21] VITALS: BP 121/84; PULSE 68
[2016-04-25] MEDS: MAGNESIUM HYDROXIDE SUSP 30 ML UDC PO PRN (10:13)
--- NOTE | 2016-04-25 11:12 | Psychiatric Progress Notes ---
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 (21.0-31.0) Partial Thromboplastin Ratio 1.2 Direct Bilirubin mg/dl (0-0.2) Total Creatine Kinase 84 U/L (26-192) Lipase 201 U/L (73-393) Free Thyroxine 1.17 ng/dl (0.80-1.60) Human Chorionic Gonadotropin, Qual NEG (NEG) Chemistry Specimen Hemolysis Ethyl Alcohol mg/dL < 3.0 mg/dl (0-3) Urine WBC (Auto) 1-5 /hpf (0-5) Urine RBC (Auto) 0-4 /hpf (0-4) Urine Hyaline Casts (Auto) 1-5 /lpf (0-5) Urine Epithelial Cells (Auto) 10-20 /lpf (0-5) Urine Bacteria (Auto) NEG (NEG) Urine Opiates Screen NEG (NEG) Urine Methadone, Qualitative NEG (NEG) Urine Barbiturates NEG (NEG) Urine Phencyclidine (PCP) Level NEG (NEG) Ur Amphetamine/Methamphetamine NEG (NEG) MDMA (Ecstasy) Screen NEG (NEG) Urine Benzodiazepines Screen NEG (NEG) Urine Cocaine Metabolite NEG (NEG) Urine Marijuana (THC) NEG (NEG) Lab Scanned Report Lab Referral [id number] Anion Gap 10.0 mmol/L (3-11) Est Creatinine Clear Calc Drug Dose 132.4 ml/min Estimated GFR () 127.5 Estimated GFR (Non- 110.0 BUN/Creatinine Ratio 17.6 (10-20) Calcium Level 8.4 mg/dl (8.5-10.1) Total Bilirubin 0.5 mg/dl (0.2-1) Alanine Aminotransferase (ALT/SGPT) 22 U/L (12-78) Alkaline Phosphatase 66 U/L (45-117) Total Protein 6.7 gm/dl (6.4-8.2) Albumin 3.3 gm/dl (3.4-5.0) Globulin 3.4 gm/dl (2.5-4.0) Albumin/Globulin Ratio 1.0 (0.9-2) Test 03/10/16 18:18 03/15/16 07:31 03/16/16 11:21 03/19/16 21:36 Aspartate Amino Transf (AST/SGOT) 18 U/L (15-37) Thyroid Stimulating Hormone (TSH) 1.020 uIu/ml (0.300-4.500) Miscellaneous Test 2 Estimated Average Glucose 103 mg/dl Hemoglobin A1c 5.2 % (4.5-5.6) Vitamin B12 Level 375 pg/mL (211-911) Folate 9.58 ng/mL (>5.38) Creatine Kinase MB Ratio (0-3.0) Test 03/19/16 22:40 03/28/16 00:00 04/20/16 07:45 Creatine Kinase MB 5.9 ng/ml (0.5-3.6) Troponin I < 0.015 ng/ml (0-0.045) Urine Color YELLOW Urine Appearance CLEAR (CLEAR) Urine pH 8.0 (4.5-7.5) Urine Specific [place] 1.005 (1.000-1.030) Urine Protein NEG (NEG) Urine Glucose (UA) NEG (NEG) Urine Ketones NEG (NEG) Urine Occult Blood NEG (NEG) Urine Nitrite NEG (NEG) Urine Bilirubin NEG (NEG) Urine Urobilinogen NEG (NEG) Urine Leukocyte Esterase NEG (NEG) White Blood Count 7.51 K/uL (4.8-10.8) Red Blood Count 4.70 M/uL (4.2-5.4) Hemoglobin 13.3 g/dL (12.0-16.0) Hematocrit 40.3 % (37-47) Mean Corpuscular Volume 85.7 fL (80-100) Mean Corpuscular Hemoglobin 28.3 pg (25-34) Mean Corpuscular Hemoglobin Concent 33.0 g/dl (32-36) Platelet Count 283 K/uL (130-400) Mean Platelet Volume 9.5 fL (7.4-10.4) Neutrophils (%) (Auto) 67.4 % Lymphocytes (%) (Auto) 22.0 % Monocytes (%) (Auto) 7.1 % Eosinophils (%) (Auto) 3.1 % Basophils (%) (Auto) 0.3 % Neutrophils # (Auto) 5.07 K/uL (1.4-6.5) Lymphocytes # (Auto) 1.65 K/uL (1.2-3.4) Monocytes # (Auto) 0.53 K/uL (0.11-0.59) Eosinophils # (Auto) 0.23 K/uL (0-0.5) Basophils # (Auto) 0.02 K/uL (0-0.2) RDW Standard Deviation 42.9 fL (36.4-46.3) RDW Coefficient of Variation 13.7 % (11.5-14.5) Immature Granulocyte % (Auto) 0.1 % Immature Granulocyte # (Auto) 0.01 K/uL (0.00-0.02)
[2016-04-25] MEDS: METFORMIN HCL 500 MG TAB PO SCH (17:23)
[2016-04-25] MEDS: CLOZAPINE 25 MG TAB PO SCH (20:52)
[2016-04-25] MEDS: hydrOXYzine HCL 25 MG TAB PO PRN (20:54)
[2016-04-26 06:48] VITALS: BP_SYST 111; BP_SYST 135; BP_DIAS 72; BP_DIAS 90; PULSE 73; PULSE 91; TEMP 36.5
[2016-04-26] MEDS: LEVOTHYROXINE 125 MCG TAB PO SCH (07:48)
[2016-04-26] MEDS: FLUTICASONE PROPIONATE NA SPR 16 GM BTL NAE SCH (08:53)
[2016-04-26] MEDS: DULOXETINE HCL 60 MG CAP PO SCH (08:53)
[2016-04-26] MEDS: TAMSULOSIN HCL 0.4 MG CAP PO SCH (08:54)
[2016-04-26] MEDS: BACLOFEN 10 MG TAB PO SCH ×2 (08:56→21:28)
[2016-04-26] MEDS: PROPRANOLOL HCL 80 MG TAB PO SCH (08:56)
[2016-04-26] MEDS: MELOXICAM 7.5 MG TAB PO SCH (08:56)
[2016-04-26] MEDS: PANTOprazole SOD 40 MG TAB PO SCH (08:57)
[2016-04-26] MEDS: GABAPENTIN 400 MG CAP PO SCH ×3 (08:57→21:28)
[2016-04-26] MEDS: GABAPENTIN 100 MG CAP PO SCH ×3 (08:57→21:29)
[2016-04-26] MEDS: LIDODERM (LIDOCAINE) PATCH 5% TD SCH (08:58)
--- NOTE | 2016-04-26 10:37 | Psychiatric Progress Notes ---
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 U/L (73-393) Free Thyroxine 1.17 ng/dl (0.80-1.60) Human Chorionic Gonadotropin, Qual NEG (NEG) Chemistry Specimen Hemolysis Ethyl Alcohol mg/dL < 3.0 mg/dl (0-3) Urine WBC (Auto) 1-5 /hpf (0-5) Urine RBC (Auto) 0-4 /hpf (0-4) Urine Hyaline Casts (Auto) 1-5 /lpf (0-5) Urine Epithelial Cells (Auto) 10-20 /lpf (0-5) Urine Bacteria (Auto) NEG (NEG) Urine Opiates Screen NEG (NEG) Urine Methadone, Qualitative NEG (NEG) Urine Barbiturates NEG (NEG) Urine Phencyclidine (PCP) Level NEG (NEG) Ur Amphetamine/Methamphetamine NEG (NEG) MDMA (Ecstasy) Screen NEG (NEG) Urine Benzodiazepines Screen NEG (NEG) Urine Cocaine Metabolite NEG (NEG) Urine Marijuana (THC) NEG (NEG) Lab Scanned Report Lab Referral [id number] Anion Gap 10.0 mmol/L (3-11) Est Creatinine Clear Calc Drug Dose 132.4 ml/min Estimated GFR () 127.5 Estimated GFR (Non- 110.0 BUN/Creatinine Ratio 17.6 (10-20) Calcium Level 8.4 mg/dl (8.5-10.1) Total Bilirubin 0.5 mg/dl (0.2-1) Alanine Aminotransferase (ALT/SGPT) 22 U/L (12-78) Alkaline Phosphatase 66 U/L (45-117) Total Protein 6.7 gm/dl (6.4-8.2) Albumin 3.3 gm/dl (3.4-5.0) Globulin 3.4 gm/dl (2.5-4.0) Albumin/Globulin Ratio 1.0 (0.9-2) Test 03/10/16 18:18 03/15/16 07:31 03/16/16 11:21 03/19/16 21:36 Aspartate Amino Transf (AST/SGOT) 18 U/L (15-37) Thyroid Stimulating Hormone (TSH) 1.020 uIu/ml (0.300-4.500) Miscellaneous Test 2 Estimated Average Glucose 103 mg/dl Hemoglobin A1c 5.2 % (4.5-5.6) Vitamin B12 Level 375 pg/mL (211-911) Folate 9.58 ng/mL (>5.38) Creatine Kinase MB Ratio (0-3.0) Test 03/19/16 22:40 03/28/16 00:00 04/20/16 07:45 Creatine Kinase MB 5.9 ng/ml (0.5-3.6) Troponin I < 0.015 ng/ml (0-0.045) Urine Color YELLOW Urine Appearance CLEAR (CLEAR) Urine pH 8.0 (4.5-7.5) Urine Specific [place] 1.005 (1.000-1.030) Urine Protein NEG (NEG) Urine Glucose (UA) NEG (NEG) Urine Ketones NEG (NEG) Urine Occult Blood NEG (NEG) Urine Nitrite NEG (NEG) Urine Bilirubin NEG (NEG) Urine Urobilinogen NEG (NEG) Urine Leukocyte Esterase NEG (NEG) White Blood Count 7.51 K/uL (4.8-10.8) Red Blood Count 4.70 M/uL (4.2-5.4) Hemoglobin 13.3 g/dL (12.0-16.0) Hematocrit 40.3 % (37-47) Mean Corpuscular Volume 85.7 fL (80-100) Mean Corpuscular Hemoglobin 28.3 pg (25-34) Mean Corpuscular Hemoglobin Concent 33.0 g/dl (32-36) Platelet Count 283 K/uL (130-400) Mean Platelet Volume 9.5 fL (7.4-10.4) Neutrophils (%) (Auto) 67.4 % Lymphocytes (%) (Auto) 22.0 % Monocytes (%) (Auto) 7.1 % Eosinophils (%) (Auto) 3.1 % Basophils (%) (Auto) 0.3 % Neutrophils # (Auto) 5.07 K/uL (1.4-6.5) Lymphocytes # (Auto) 1.65 K/uL (1.2-3.4) Monocytes # (Auto) 0.53 K/uL (0.11-0.59) Eosinophils # (Auto) 0.23 K/uL (0-0.5) Basophils # (Auto) 0.02 K/uL (0-0.2) RDW Standard Deviation 42.9 fL (36.4-46.3) RDW Coefficient of Variation 13.7 % (11.5-14.5) Immature Granulocyte % (Auto) 0.1 % Immature Granulocyte # (Auto) 0.01 K/uL (0.00-0.02)
[2016-04-26] MEDS: LACTULOSE SYRUP 10 GM/15 ML BTL 473 ML PO PRN (12:29)
[2016-04-26] MEDS ORDERED: SIMETHICONE 80 MG CHEW PO PRN (17:00)
[2016-04-26] MEDS: METFORMIN HCL 500 MG TAB PO SCH (17:33)
[2016-04-26] MEDS: CLOZAPINE 25 MG TAB PO SCH (21:28)
[2016-04-26] MEDS: hydrOXYzine HCL 25 MG TAB PO PRN (21:39)
[2016-04-27 06:48] VITALS: BP_SYST 126; BP_SYST 138; BP_DIAS 72; BP_DIAS 84; PULSE 74; PULSE 88; TEMP 36.4
[2016-04-27 07:31] LABS: BASO % 0.7 %; BASO ABS # 0.05 K/uL (0-0.2); COMPLETE YES; EOS % 3.3 %; HEMATOCRIT 40.4 % (37-47); IG% 0.1 %; LYMPH % 30.6 %; LYMPH ABS # 2.11 K/uL (1.2-3.4); MEAN CELL VOLUME 85.2 fL (80-100); MEAN CORPUSCULAR HEMOGLOBIN 28.5 pg (25-34); MEAN CORPUSCULAR HGB CONC 33.4 g/dl (32-36); MEAN PLATELET VOLUME 9.7 fL (7.4-10.4); MONO % 7.1 %; NEUT % 58.2 %; PLATELET COUNT 232 K/uL (130-400); RED BLOOD COUNT 4.74 M/uL (4.2-5.4); WHITE BLOOD COUNT 6.89 K/uL (4.8-10.8)
[2016-04-27 07:57] LABS: BUN/CREATININE RATIO 20.8 (10-20); CALCIUM 8.4 mg/dl (8.5-10.1); CREATININE 0.62 mg/dl (0.60-1.20)
[2016-04-27] MEDS: LEVOTHYROXINE 125 MCG TAB PO SCH (08:13)
[2016-04-27] MEDS: FLUTICASONE PROPIONATE NA SPR 16 GM BTL NAE SCH (09:00)
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
[2016-04-27] MEDS: TAMSULOSIN HCL 0.4 MG CAP PO SCH (09:45)
[2016-04-27] MEDS: DULOXETINE HCL 60 MG CAP PO SCH (09:45)
[2016-04-27] MEDS: PROPRANOLOL HCL 80 MG TAB PO SCH (09:46)
[2016-04-27] MEDS: BACLOFEN 10 MG TAB PO SCH ×2 (09:47→21:11)
[2016-04-27] MEDS: MELOXICAM 7.5 MG TAB PO SCH (09:47)
[2016-04-27] MEDS: PANTOprazole SOD 40 MG TAB PO SCH (09:48)
[2016-04-27] MEDS: GABAPENTIN 400 MG CAP PO SCH ×3 (09:48→21:12)
[2016-04-27] MEDS: GABAPENTIN 100 MG CAP PO SCH ×3 (09:48→21:11)
[2016-04-27] MEDS: LIDODERM (LIDOCAINE) PATCH 5% TD SCH (09:49)
[2016-04-27] MEDS: METFORMIN HCL 500 MG TAB PO SCH (17:23)
[2016-04-27] MEDS: CLOZAPINE 25 MG TAB PO SCH (21:11)
[2016-04-27] MEDS: hydrOXYzine HCL 25 MG TAB PO PRN (21:12)
[2016-04-28 07:10] VITALS: BP_SYST 116; BP_SYST 118; BP_DIAS 74; BP_DIAS 80; PULSE 72; PULSE 74; TEMP 36.6
[2016-04-28] MEDS: LEVOTHYROXINE 125 MCG TAB PO SCH (07:31)
[2016-04-28] MEDS: FLUTICASONE PROPIONATE NA SPR 16 GM BTL NAE SCH (09:00)
[2016-04-28] MEDS: TAMSULOSIN HCL 0.4 MG CAP PO SCH (09:22)
[2016-04-28] MEDS: DULOXETINE HCL 60 MG CAP PO SCH (09:22)
[2016-04-28] MEDS: PROPRANOLOL HCL 80 MG TAB PO SCH (09:23)
[2016-04-28] MEDS: BACLOFEN 10 MG TAB PO SCH ×2 (09:23→21:19)
[2016-04-28] MEDS: MELOXICAM 7.5 MG TAB PO SCH (09:23)
[2016-04-28] MEDS: GABAPENTIN 100 MG CAP PO SCH ×3 (09:24→21:18)
[2016-04-28] MEDS: PANTOprazole SOD 40 MG TAB PO SCH (09:24)
[2016-04-28] MEDS: GABAPENTIN 400 MG CAP PO SCH ×3 (09:24→21:18)
[2016-04-28] MEDS: LIDODERM (LIDOCAINE) PATCH 5% TD SCH (09:24)
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
[2016-04-28] MEDS: METFORMIN HCL 500 MG TAB PO SCH (17:17)
[2016-04-28] MEDS: hydrOXYzine HCL 25 MG TAB PO PRN (21:18)
[2016-04-28] MEDS: CLOZAPINE 25 MG TAB PO SCH (21:19)
[2016-04-29 07:06] VITALS: BP 109/75; PULSE 76; TEMP 36.5
[2016-04-29] MEDS: LEVOTHYROXINE 125 MCG TAB PO SCH ×2 (07:54→08:45)
[2016-04-29] MEDS: TAMSULOSIN HCL 0.4 MG CAP PO SCH (08:46)
[2016-04-29] MEDS: DULOXETINE HCL 60 MG CAP PO SCH (08:46)
[2016-04-29] MEDS: GABAPENTIN 400 MG CAP PO SCH ×3 (08:47→21:23)
[2016-04-29] MEDS: MELOXICAM 7.5 MG TAB PO SCH (08:47)
[2016-04-29] MEDS: GABAPENTIN 100 MG CAP PO SCH ×3 (08:47→21:24)
[2016-04-29] MEDS: BACLOFEN 10 MG TAB PO SCH ×2 (08:47→21:23)
[2016-04-29] MEDS: PROPRANOLOL HCL 80 MG TAB PO SCH (08:47)
[2016-04-29] MEDS: FLUTICASONE PROPIONATE NA SPR 16 GM BTL NAE SCH (08:48)
[2016-04-29] MEDS: PANTOprazole SOD 40 MG TAB PO SCH (08:48)
[2016-04-29] MEDS: LIDODERM (LIDOCAINE) PATCH 5% TD SCH (08:51)
[2016-04-29] MEDS: MAGNESIUM HYDROXIDE SUSP 30 ML UDC PO PRN (12:50)
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
[2016-04-29] MEDS: METFORMIN HCL 500 MG TAB PO SCH (17:17)
[2016-04-29] MEDS: CLOZAPINE 25 MG TAB PO SCH (21:23)
[2016-04-30 07:03] VITALS: BP_SYST 121; BP_SYST 122; BP_DIAS 84; BP_DIAS 87; PULSE 102; PULSE 81; TEMP 36.4
[2016-04-30] MEDS: LEVOTHYROXINE 125 MCG TAB PO SCH (07:56)
[2016-04-30] MEDS: FLUTICASONE PROPIONATE NA SPR 16 GM BTL NAE SCH (09:00)
[2016-04-30] MEDS: DULOXETINE HCL 60 MG CAP PO SCH (09:41)
[2016-04-30] MEDS: TAMSULOSIN HCL 0.4 MG CAP PO SCH (09:41)
[2016-04-30] MEDS: PROPRANOLOL HCL 80 MG TAB PO SCH (09:42)
[2016-04-30] MEDS: BACLOFEN 10 MG TAB PO SCH ×2 (09:43→21:17)
[2016-04-30] MEDS: MELOXICAM 7.5 MG TAB PO SCH (09:43)
[2016-04-30] MEDS: GABAPENTIN 100 MG CAP PO SCH ×3 (09:43→21:18)
[2016-04-30] MEDS: PANTOprazole SOD 40 MG TAB PO SCH (09:44)
[2016-04-30] MEDS: GABAPENTIN 400 MG CAP PO SCH ×3 (09:44→21:18)
[2016-04-30] MEDS: LIDODERM (LIDOCAINE) PATCH 5% TD SCH (09:45)
--- NOTE | 2016-04-30 11:10 | Psychiatric Progress Notes ---
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 11.5-14.5 % Immature Granulocyte % (Auto) 0.1 % Immature Granulocyte # (Auto) 0.01 0.00-0.02 K/uL Sodium Level 142 136-145 mmol/L Potassium Level 4.0 3.5-5.1 mmol/L Chloride Level 107 98-107 mmol/L Carbon Dioxide Level 28 21-32 mmol/L Anion Gap 7.0 3-11 mmol/L Blood Urea Nitrogen 13 7-18 mg/dl Creatinine 0.62 0.60-1.20 mg/dl Est Creatinine Clear Calc Drug Dose 158.5 ml/min Estimated GFR () 137.3 Estimated GFR (Non- 118.5 BUN/Creatinine Ratio 20.8 10-20 Random Glucose 83 70-99 mg/dl Calcium Level 8.4 8.5-10.1 mg/dl
[2016-04-30] MEDS: MAGNESIUM HYDROXIDE SUSP 30 ML UDC PO PRN (12:07)
[2016-04-30] MEDS: METFORMIN HCL 500 MG TAB PO SCH (17:36)
[2016-04-30] MEDS: CLOZAPINE 25 MG TAB PO SCH (21:17)
[2016-04-30] MEDS: hydrOXYzine HCL 25 MG TAB PO PRN (21:18)
[2016-05-01 06:58] VITALS: BP 114/77; PULSE 87; PULSE 95; TEMP 36.9
[2016-05-01] MEDS: FLUTICASONE PROPIONATE NA SPR 16 GM BTL NAE SCH (09:00)
[2016-05-01] MEDS: DULOXETINE HCL 60 MG CAP PO SCH (09:14)
[2016-05-01] MEDS: PROPRANOLOL HCL 80 MG TAB PO SCH (09:14)
[2016-05-01] MEDS: LIDODERM (LIDOCAINE) PATCH 5% TD SCH (09:14)
[2016-05-01] MEDS: LEVOTHYROXINE 125 MCG TAB PO SCH (09:14)
[2016-05-01] MEDS: PANTOprazole SOD 40 MG TAB PO SCH (09:15)
[2016-05-01] MEDS: TAMSULOSIN HCL 0.4 MG CAP PO SCH (09:15)
[2016-05-01] MEDS: BACLOFEN 10 MG TAB PO SCH ×2 (09:15→21:15)
[2016-05-01] MEDS: GABAPENTIN 100 MG CAP PO SCH ×3 (09:15→21:15)
[2016-05-01] MEDS: GABAPENTIN 400 MG CAP PO SCH ×3 (09:15→21:15)
[2016-05-01] MEDS: MELOXICAM 7.5 MG TAB PO SCH (09:15)
--- NOTE | 2016-05-01 09:59 | Psychiatric Progress Notes ---
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 (0-4) Urine Hyaline Casts (Auto) 1-5 /lpf (0-5) Urine Epithelial Cells (Auto) 10-20 /lpf (0-5) Urine Bacteria (Auto) NEG (NEG) Urine Opiates Screen NEG (NEG) Urine Methadone, Qualitative NEG (NEG) Urine Barbiturates NEG (NEG) Urine Phencyclidine (PCP) Level NEG (NEG) Ur Amphetamine/Methamphetamine NEG (NEG) MDMA (Ecstasy) Screen NEG (NEG) Urine Benzodiazepines Screen NEG (NEG) Urine Cocaine Metabolite NEG (NEG) Urine Marijuana (THC) NEG (NEG) Lab Scanned Report Lab Referral [id number] Total Bilirubin 0.5 mg/dl (0.2-1) Alanine Aminotransferase (ALT/SGPT) 22 U/L (12-78) Alkaline Phosphatase 66 U/L (45-117) Total Protein 6.7 gm/dl (6.4-8.2) Albumin 3.3 gm/dl (3.4-5.0) Globulin 3.4 gm/dl (2.5-4.0) Albumin/Globulin Ratio 1.0 (0.9-2) Test 03/10/16 18:18 03/15/16 07:31 03/16/16 11:21 03/19/16 21:36 Aspartate Amino Transf (AST/SGOT) 18 U/L (15-37) Thyroid Stimulating Hormone (TSH) 1.020 uIu/ml (0.300-4.500) Miscellaneous Test 2 Estimated Average Glucose 103 mg/dl Hemoglobin A1c 5.2 % (4.5-5.6) Vitamin B12 Level 375 pg/mL (211-911) Folate 9.58 ng/mL (>5.38) Creatine Kinase MB Ratio (0-3.0) Test 03/19/16 22:40 03/28/16 00:00 04/27/16 06:55 Creatine Kinase MB 5.9 ng/ml (0.5-3.6) Troponin I < 0.015 ng/ml (0-0.045) Urine Color YELLOW Urine Appearance CLEAR (CLEAR) Urine pH 8.0 (4.5-7.5) Urine Specific [place] 1.005 (1.000-1.030) Urine Protein NEG (NEG) Urine Glucose (UA) NEG (NEG) Urine Ketones NEG (NEG) Urine Occult Blood NEG (NEG) Urine Nitrite NEG (NEG) Urine Bilirubin NEG (NEG) Urine Urobilinogen NEG (NEG) Urine Leukocyte Esterase NEG (NEG) White Blood Count 6.89 K/uL (4.8-10.8) Red Blood Count 4.74 M/uL (4.2-5.4) Hemoglobin 13.5 g/dL (12.0-16.0) Hematocrit 40.4 % (37-47) Mean Corpuscular Volume 85.2 fL (80-100) Mean Corpuscular Hemoglobin 28.5 pg (25-34) Mean Corpuscular Hemoglobin Concent 33.4 g/dl (32-36) Platelet Count 232 K/uL (130-400) Mean Platelet Volume 9.7 fL (7.4-10.4) Neutrophils (%) (Auto) 58.2 % Lymphocytes (%) (Auto) 30.6 % Monocytes (%) (Auto) 7.1 % Eosinophils (%) (Auto) 3.3 % Basophils (%) (Auto) 0.7 % Neutrophils # (Auto) 4.00 K/uL (1.4-6.5) Lymphocytes # (Auto) 2.11 K/uL (1.2-3.4) Monocytes # (Auto) 0.49 K/uL (0.11-0.59) Eosinophils # (Auto) 0.23 K/uL (0-0.5) Basophils # (Auto) 0.05 K/uL (0-0.2) RDW Standard Deviation 42.0 fL (36.4-46.3) RDW Coefficient of Variation 13.5 % (11.5-14.5) Immature Granulocyte % (Auto) 0.1 % Immature Granulocyte # (Auto) 0.01 K/uL (0.00-0.02) Anion Gap 7.0 mmol/L (3-11) Est Creatinine Clear Calc Drug Dose 158.5 ml/min Estimated GFR () 137.3 Estimated GFR (Non- 118.5 BUN/Creatinine Ratio 20.8 (10-20) Calcium Level 8.4 mg/dl (8.5-10.1)
[2016-05-01] MEDS: METFORMIN HCL 500 MG TAB PO SCH (17:20)
[2016-05-01] MEDS: hydrOXYzine HCL 25 MG TAB PO PRN (21:15)
[2016-05-01] MEDS: CLOZAPINE PO SCH ×2 (21:16)
[2016-05-01] MEDS ORDERED: CLOZAPINE 100 MG TAB PO SCH (22:00)
[2016-05-02] MEDS: LEVOTHYROXINE 125 MCG TAB PO SCH (06:39)
[2016-05-02 06:59] VITALS: BP_SYST 117; BP_SYST 119; BP_DIAS 80; BP_DIAS 81; PULSE 82; PULSE 97; TEMP 36.7
[2016-05-02] MEDS: FLUTICASONE PROPIONATE NA SPR 16 GM BTL NAE SCH (09:00)
[2016-05-02] MEDS: GABAPENTIN 100 MG CAP PO SCH ×3 (09:43→21:30)
[2016-05-02] MEDS: GABAPENTIN 400 MG CAP PO SCH ×3 (09:43→21:30)
[2016-05-02] MEDS: PANTOprazole SOD 40 MG TAB PO SCH (09:43)
[2016-05-02] MEDS: LIDODERM (LIDOCAINE) PATCH 5% TD SCH (09:43)
[2016-05-02] MEDS: MELOXICAM 7.5 MG TAB PO SCH (09:43)
[2016-05-02] MEDS: DULOXETINE HCL 60 MG CAP PO SCH (09:44)
[2016-05-02] MEDS: TAMSULOSIN HCL 0.4 MG CAP PO SCH (09:44)
[2016-05-02] MEDS: PROPRANOLOL HCL 80 MG TAB PO SCH (09:44)
[2016-05-02] MEDS: BACLOFEN 10 MG TAB PO SCH ×2 (09:44→21:29)
[2016-05-02] MEDS: MAGNESIUM HYDROXIDE SUSP 30 ML UDC PO PRN (10:09)
--- NOTE | 2016-05-02 10:12 | Psychiatric Progress Notes ---
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 Eosinophils (%) (Auto) 3.3 % Basophils (%) (Auto) 0.7 % Neutrophils # (Auto) 4.00 K/uL (1.4-6.5) Lymphocytes # (Auto) 2.11 K/uL (1.2-3.4) Monocytes # (Auto) 0.49 K/uL (0.11-0.59) Eosinophils # (Auto) 0.23 K/uL (0-0.5) Basophils # (Auto) 0.05 K/uL (0-0.2) RDW Standard Deviation 42.0 fL (36.4-46.3) RDW Coefficient of Variation 13.5 % (11.5-14.5) Immature Granulocyte % (Auto) 0.1 % Immature Granulocyte # (Auto) 0.01 K/uL (0.00-0.02) Anion Gap 7.0 mmol/L (3-11) Est Creatinine Clear Calc Drug Dose 158.5 ml/min Estimated GFR () 137.3 Estimated GFR (Non- 118.5 BUN/Creatinine Ratio 20.8 (10-20) Calcium Level 8.4 mg/dl (8.5-10.1) Problem Qualifiers (1) Major depressive disorder with psychotic features: Major depression recurrence: recurrent Active/Remission status: currently active Major depression episode severity: severe Qualified Codes: F33.3 - Major depressive disorder, recurrent, severe with psychotic symptoms (2) Hypothyroidism: 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
[2016-05-02] MEDS: METFORMIN HCL 500 MG TAB PO SCH (17:13)
[2016-05-02] MEDS: hydrOXYzine HCL 25 MG TAB PO PRN (21:30)
[2016-05-02] MEDS: CLOZAPINE PO SCH ×2 (21:30)
[2016-05-03] MEDS: LEVOTHYROXINE 125 MCG TAB PO SCH (06:37)
[2016-05-03 07:06] VITALS: BP_SYST 108; BP_SYST 119; BP_DIAS 78; BP_DIAS 80; PULSE 84; PULSE 88; TEMP 36.8
[2016-05-03] MEDS: FLUTICASONE PROPIONATE NA SPR 16 GM BTL NAE SCH (09:00)
[2016-05-03] MEDS: DULOXETINE HCL 60 MG CAP PO SCH (09:15)
[2016-05-03] MEDS: TAMSULOSIN HCL 0.4 MG CAP PO SCH (09:15)
[2016-05-03] MEDS: BACLOFEN 10 MG TAB PO SCH ×2 (09:16→21:27)
[2016-05-03] MEDS: PROPRANOLOL HCL 80 MG TAB PO SCH (09:16)
[2016-05-03] MEDS: MELOXICAM 7.5 MG TAB PO SCH (09:17)
[2016-05-03] MEDS: GABAPENTIN 100 MG CAP PO SCH ×3 (09:18→21:27)
[2016-05-03] MEDS: GABAPENTIN 400 MG CAP PO SCH ×3 (09:18→21:27)
[2016-05-03] MEDS: PANTOprazole SOD 40 MG TAB PO SCH (09:18)
[2016-05-03] MEDS: LIDODERM (LIDOCAINE) PATCH 5% TD SCH (09:19)
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
[2016-05-03] MEDS: METFORMIN HCL 500 MG TAB PO SCH (17:49)
[2016-05-03] MEDS: CLOZAPINE PO SCH ×2 (21:27)
[2016-05-03] MEDS: hydrOXYzine HCL 25 MG TAB PO PRN (21:29)
[2016-05-04 07:00] VITALS: BP_SYST 106; BP_SYST 117; BP_DIAS 78; BP_DIAS 84; PULSE 101; PULSE 78; TEMP 36.5
[2016-05-04] MEDS: LEVOTHYROXINE 125 MCG TAB PO SCH (07:46)
[2016-05-04 07:55] LABS: BASO % 0.4 %; BASO ABS # 0.03 K/uL (0-0.2); COMPLETE YES; EOS % 3.1 %; HEMATOCRIT 38.2 % (37-47); IG% 0.1 %; LYMPH % 25.4 %; LYMPH ABS # 1.73 K/uL (1.2-3.4); MEAN CELL VOLUME 84.3 fL (80-100); MEAN CORPUSCULAR HEMOGLOBIN 28.3 pg (25-34); MEAN CORPUSCULAR HGB CONC 33.5 g/dl (32-36); MEAN PLATELET VOLUME 9.2 fL (7.4-10.4); MONO % 7.2 %; NEUT % 63.8 %; PLATELET COUNT 259 K/uL (130-400); RED BLOOD COUNT 4.53 M/uL (4.2-5.4)
[2016-05-04] MEDS: FLUTICASONE PROPIONATE NA SPR 16 GM BTL NAE SCH (09:00)
[2016-05-04] MEDS: DULOXETINE HCL 60 MG CAP PO SCH (09:02)
[2016-05-04] MEDS: TAMSULOSIN HCL 0.4 MG CAP PO SCH (09:03)
[2016-05-04] MEDS: MELOXICAM 7.5 MG TAB PO SCH (09:04)
[2016-05-04] MEDS: PROPRANOLOL HCL 80 MG TAB PO SCH (09:04)
[2016-05-04] MEDS: BACLOFEN 10 MG TAB PO SCH ×2 (09:04→22:41)
[2016-05-04] MEDS: GABAPENTIN 100 MG CAP PO SCH ×3 (09:05→22:42)
[2016-05-04] MEDS: PANTOprazole SOD 40 MG TAB PO SCH (09:05)
[2016-05-04] MEDS: GABAPENTIN 400 MG CAP PO SCH ×3 (09:05→22:42)
[2016-05-04] MEDS: LIDODERM (LIDOCAINE) PATCH 5% TD SCH (09:06)
--- NOTE | 2016-05-04 10:11 | Psychiatric Progress Notes ---
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 DAILYBD PO 04/21/16 17:15 05/21/16 17:14 05/03/16 17:49 1,000 MG Simethicone (Mylicon Chew Tab) 80 mg Q6H PRN PO 04/26/16 17:00 05/26/16 16:59 04/26/16 18:17 80 MG Clozapine/ Clozapine (Clozaril Tab/ Clozaril Tab) 150 mg HS PO 05/01/16 22:00 05/31/16 21:59 05/03/16 21:27 150 MG Lab Results Last 24 Hrs: Last 24 Hours Test 05/04/16 07:20 White Blood Count 6.80 K/uL Red Blood Count 4.53 M/uL Hemoglobin 12.8 g/dL Hematocrit 38.2 % Mean Corpuscular Volume 84.3 fL Mean Corpuscular Hemoglobin 28.3 pg Mean Corpuscular Hemoglobin Concent 33.5 g/dl Platelet Count 259 K/uL Mean Platelet Volume 9.2 fL Neutrophils (%) (Auto) 63.8 % Lymphocytes (%) (Auto) 25.4 % Monocytes (%) (Auto) 7.2 % Eosinophils (%) (Auto) 3.1 % Basophils (%) (Auto) 0.4 % Neutrophils # (Auto) 4.33 K/uL Lymphocytes # (Auto) 1.73 K/uL Monocytes # (Auto) 0.49 K/uL Eosinophils # (Auto) 0.21 K/uL Basophils # (Auto) 0.03 K/uL RDW Standard Deviation 41.9 fL RDW Coefficient of Variation 13.7 % Immature Granulocyte % (Auto) 0.1 % Immature Granulocyte # (Auto) 0.01 K/uL Problem Qualifiers (1) Major depressive disorder with psychotic features: Major depression recurrence: recurrent Active/Remission status: currently active Major depression episode severity: severe Qualified Codes: F33.3 - Major depressive disorder, recurrent, severe with psychotic symptoms (2) Hypothyroidism: 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
[2016-05-04] MEDS: METFORMIN HCL 500 MG TAB PO SCH (17:18)
[2016-05-04] MEDS: CLOZAPINE PO SCH ×2 (22:44)
[2016-05-05] MEDS: LEVOTHYROXINE 125 MCG TAB PO SCH (06:45)
[2016-05-05 07:01] VITALS: BP_SYST 94; BP_SYST 98; BP_DIAS 64; PULSE 79; PULSE 80; TEMP 36.5
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
[2016-05-05] MEDS: TAMSULOSIN HCL 0.4 MG CAP PO SCH (08:59)
[2016-05-05] MEDS: PANTOprazole SOD 40 MG TAB PO SCH (08:59)
[2016-05-05] MEDS: MELOXICAM 7.5 MG TAB PO SCH (08:59)
[2016-05-05] MEDS: GABAPENTIN 400 MG CAP PO SCH ×3 (08:59→21:03)
[2016-05-05] MEDS: GABAPENTIN 100 MG CAP PO SCH ×3 (08:59→21:02)
[2016-05-05] MEDS: BACLOFEN 10 MG TAB PO SCH ×2 (08:59→21:02)
[2016-05-05] MEDS: PROPRANOLOL HCL 80 MG TAB PO SCH (09:00)
[2016-05-05] MEDS: DULOXETINE HCL 60 MG CAP PO SCH (09:00)
[2016-05-05] MEDS: FLUTICASONE PROPIONATE NA SPR 16 GM BTL NAE SCH (09:00)
[2016-05-05] MEDS: LIDODERM (LIDOCAINE) PATCH 5% TD SCH (09:01)
[2016-05-05] MEDS: METFORMIN HCL 500 MG TAB PO SCH (17:15)
[2016-05-05] MEDS: CLOZAPINE PO SCH ×2 (21:03)
[2016-05-06] MEDS: LEVOTHYROXINE 125 MCG TAB PO SCH (06:54)
[2016-05-06 06:55] VITALS: BP 114/81; PULSE 83; PULSE 90; TEMP 36.4
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
[2016-05-06] MEDS: FLUTICASONE PROPIONATE NA SPR 16 GM BTL NAE SCH (09:00)
[2016-05-06] MEDS: LIDODERM (LIDOCAINE) PATCH 5% TD SCH (09:38)
[2016-05-06] MEDS: MELOXICAM 7.5 MG TAB PO SCH (09:38)
[2016-05-06] MEDS: PANTOprazole SOD 40 MG TAB PO SCH (09:38)
[2016-05-06] MEDS: TAMSULOSIN HCL 0.4 MG CAP PO SCH (09:38)
[2016-05-06] MEDS: GABAPENTIN 100 MG CAP PO SCH ×3 (09:39→21:33)
[2016-05-06] MEDS: GABAPENTIN 400 MG CAP PO SCH ×3 (09:39→21:35)
[2016-05-06] MEDS: DULOXETINE HCL 60 MG CAP PO SCH (09:40)
[2016-05-06] MEDS: BACLOFEN 10 MG TAB PO SCH ×2 (09:40→21:33)
[2016-05-06] MEDS: PROPRANOLOL HCL 80 MG TAB PO SCH (09:40)
[2016-05-06] MEDS: MAGNESIUM HYDROXIDE SUSP 30 ML UDC PO PRN (15:05)
[2016-05-06] MEDS: METFORMIN HCL 500 MG TAB PO SCH (17:13)
[2016-05-06] MEDS: CLOZAPINE PO SCH ×2 (21:39)
[2016-05-07 06:58] VITALS: BP 121/86; PULSE 72; TEMP 36.4
[2016-05-07] MEDS: LEVOTHYROXINE 125 MCG TAB PO SCH (08:39)
[2016-05-07] MEDS: TAMSULOSIN HCL 0.4 MG CAP PO SCH (08:40)
[2016-05-07] MEDS: DULOXETINE HCL 60 MG CAP PO SCH (08:40)
[2016-05-07] MEDS: PROPRANOLOL HCL 80 MG TAB PO SCH (08:41)
[2016-05-07] MEDS: MELOXICAM 7.5 MG TAB PO SCH (08:41)
[2016-05-07] MEDS: GABAPENTIN 100 MG CAP PO SCH ×3 (08:41→21:11)
[2016-05-07] MEDS: BACLOFEN 10 MG TAB PO SCH ×2 (08:41→21:11)
[2016-05-07] MEDS: GABAPENTIN 400 MG CAP PO SCH ×3 (08:42→21:12)
[2016-05-07] MEDS: PANTOprazole SOD 40 MG TAB PO SCH (08:42)
[2016-05-07] MEDS: FLUTICASONE PROPIONATE NA SPR 16 GM BTL NAE SCH (08:46)
[2016-05-07] MEDS: LIDODERM (LIDOCAINE) PATCH 5% TD SCH (09:00)
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
[2016-05-07] MEDS ORDERED: IBUPROFEN 600 MG TAB PO PRN (11:15)
[2016-05-07] MEDS: METFORMIN HCL 500 MG TAB PO SCH (17:29)
[2016-05-07] MEDS: CLOZAPINE PO SCH ×2 (21:12)
[2016-05-08 06:59] VITALS: BP_SYST 112; BP_SYST 138; BP_DIAS 77; BP_DIAS 84; PULSE 72; PULSE 89; TEMP 36.5
[2016-05-08] MEDS: LEVOTHYROXINE 125 MCG TAB PO SCH (08:18)
[2016-05-08] MEDS: TAMSULOSIN HCL 0.4 MG CAP PO SCH (08:58)
[2016-05-08] MEDS: DULOXETINE HCL 60 MG CAP PO SCH (08:58)
[2016-05-08] MEDS: PROPRANOLOL HCL 80 MG TAB PO SCH (08:59)
[2016-05-08] MEDS: MELOXICAM 7.5 MG TAB PO SCH (08:59)
[2016-05-08] MEDS: BACLOFEN 10 MG TAB PO SCH ×2 (08:59→21:01)
[2016-05-08] MEDS: LIDODERM (LIDOCAINE) PATCH 5% TD SCH (09:00)
[2016-05-08] MEDS: PANTOprazole SOD 40 MG TAB PO SCH (09:00)
[2016-05-08] MEDS: GABAPENTIN 400 MG CAP PO SCH ×3 (09:00→21:02)
[2016-05-08] MEDS: GABAPENTIN 100 MG CAP PO SCH ×3 (09:00→21:02)
[2016-05-08] MEDS: FLUTICASONE PROPIONATE NA SPR 16 GM BTL NAE SCH (09:00)
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
[2016-05-08] MEDS: METFORMIN HCL 500 MG TAB PO SCH (17:17)
[2016-05-08] MEDS: CLOZAPINE PO SCH ×2 (21:03)
[2016-05-09 06:53] VITALS: BP_SYST 120; BP_SYST 123; BP_DIAS 85; BP_DIAS 87; PULSE 74; PULSE 82; TEMP 36.6
[2016-05-09] MEDS: LEVOTHYROXINE 125 MCG TAB PO SCH (08:23)
[2016-05-09] MEDS: FLUTICASONE PROPIONATE NA SPR 16 GM BTL NAE SCH (08:36)
[2016-05-09] MEDS: MELOXICAM 7.5 MG TAB PO SCH (08:37)
[2016-05-09] MEDS: DULOXETINE HCL 60 MG CAP PO SCH (08:37)
[2016-05-09] MEDS: PANTOprazole SOD 40 MG TAB PO SCH (08:37)
[2016-05-09] MEDS: GABAPENTIN 400 MG CAP PO SCH ×3 (08:37→21:11)
[2016-05-09] MEDS: GABAPENTIN 100 MG CAP PO SCH ×3 (08:37→21:11)
[2016-05-09] MEDS: BACLOFEN 10 MG TAB PO SCH ×2 (08:38→21:11)
[2016-05-09] MEDS: TAMSULOSIN HCL 0.4 MG CAP PO SCH (08:38)
[2016-05-09] MEDS: LIDODERM (LIDOCAINE) PATCH 5% TD SCH (08:38)
[2016-05-09] MEDS: PROPRANOLOL HCL 80 MG TAB PO SCH (08:39)
--- NOTE | 2016-05-09 09:19 | Psychiatric Progress Notes ---
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 7.2, Eosinophils (%) (Auto) 3.1, Basophils (%) (Auto) 0.4, Neutrophils # (Auto) 4.33, Lymphocytes # (Auto) 1.73, Monocytes # (Auto) 0.49, Eosinophils # (Auto) 0.21, Basophils # (Auto) 0.03 04/27/16 06:55 Test 02/21/16 15:46 02/21/16 16:00 02/21/16 19:59 03/10/16 15:45 Prothrombin Time 10.4 SECONDS (9.0-12.0) Prothromb Time International Ratio 1.0 (0.9-1.1) Activated Partial Thromboplast Time 29.9 SECONDS (21.0-31.0) Partial Thromboplastin Ratio 1.2 Direct Bilirubin mg/dl (0-0.2) Total Creatine Kinase 84 U/L (26-192) Lipase 201 U/L (73-393) Free Thyroxine 1.17 ng/dl (0.80-1.60) Human Chorionic Gonadotropin, Qual NEG (NEG) Chemistry Specimen Hemolysis Ethyl Alcohol mg/dL < 3.0 mg/dl (0-3) Urine WBC (Auto) 1-5 /hpf (0-5) Urine RBC (Auto) 0-4 /hpf (0-4) Urine Hyaline Casts (Auto) 1-5 /lpf (0-5) Urine Epithelial Cells (Auto) 10-20 /lpf (0-5) Urine Bacteria (Auto) NEG (NEG) Urine Opiates Screen NEG (NEG) Urine Methadone, Qualitative NEG (NEG) Urine Barbiturates NEG (NEG) Urine Phencyclidine (PCP) Level NEG (NEG) Ur Amphetamine/Methamphetamine NEG (NEG) MDMA (Ecstasy) Screen NEG (NEG) Urine Benzodiazepines Screen NEG (NEG) Urine Cocaine Metabolite NEG (NEG) Urine Marijuana (THC) NEG (NEG) Lab Scanned Report Lab Referral [id number] Total Bilirubin 0.5 mg/dl (0.2-1) Alanine Aminotransferase (ALT/SGPT) 22 U/L (12-78) Alkaline Phosphatase 66 U/L (45-117) Total Protein 6.7 gm/dl (6.4-8.2) Albumin 3.3 gm/dl (3.4-5.0) Globulin 3.4 gm/dl (2.5-4.0) Albumin/Globulin Ratio 1.0 (0.9-2) Test 03/10/16 18:18 03/15/16 07:31 03/16/16 11:21 03/19/16 21:36 Aspartate Amino Transf (AST/SGOT) 18 U/L (15-37) Thyroid Stimulating Hormone (TSH) 1.020 uIu/ml (0.300-4.500) Miscellaneous Test 2 Estimated Average Glucose 103 mg/dl Hemoglobin A1c 5.2 % (4.5-5.6) Vitamin B12 Level 375 pg/mL (211-911) Folate 9.58 ng/mL (>5.38) Creatine Kinase MB Ratio (0-3.0) Test 03/19/16 22:40 03/28/16 00:00 04/27/16 06:55 05/04/16 07:20 Creatine Kinase MB 5.9 ng/ml (0.5-3.6) Troponin I < 0.015 ng/ml (0-0.045) Urine Color YELLOW Urine Appearance CLEAR (CLEAR) Urine pH 8.0 (4.5-7.5) Urine Specific [place] 1.005 (1.000-1.030) Urine Protein NEG (NEG) Urine Glucose (UA) NEG (NEG) Urine Ketones NEG (NEG) Urine Occult Blood NEG (NEG) Urine Nitrite NEG (NEG) Urine Bilirubin NEG (NEG) Urine Urobilinogen NEG (NEG) Urine Leukocyte Esterase NEG (NEG) Anion Gap 7.0 mmol/L (3-11) Est Creatinine Clear Calc Drug Dose 158.5 ml/min Estimated GFR () 137.3 Estimated GFR (Non- 118.5 BUN/Creatinine Ratio 20.8 (10-20) Calcium Level 8.4 mg/dl (8.5-10.1) White Blood Count 6.80 K/uL (4.8-10.8) Red Blood Count 4.53 M/uL (4.2-5.4) Hemoglobin 12.8 g/dL (12.0-16.0) Hematocrit 38.2 % (37-47) Mean Corpuscular Volume 84.3 fL (80-100) Mean Corpuscular Hemoglobin 28.3 pg (25-34) Mean Corpuscular Hemoglobin Concent 33.5 g/dl (32-36) Platelet Count 259 K/uL (130-400) Mean Platelet Volume 9.2 fL (7.4-10.4) Neutrophils (%) (Auto) 63.8 % Lymphocytes (%) (Auto) 25.4 % Monocytes (%) (Auto) 7.2 % Eosinophils (%) (Auto) 3.1 % Basophils (%) (Auto) 0.4 % Neutrophils # (Auto) 4.33 K/uL (1.4-6.5) Lymphocytes # (Auto) 1.73 K/uL (1.2-3.4) Monocytes # (Auto) 0.49 K/uL (0.11-0.59) Eosinophils # (Auto) 0.21 K/uL (0-0.5) Basophils # (Auto) 0.03 K/uL (0-0.2) RDW Standard Deviation 41.9 fL (36.4-46.3) RDW Coefficient of Variation 13.7 % (11.5-14.5) Immature Granulocyte % (Auto) 0.1 % Immature Granulocyte # (Auto) 0.01 K/uL (0.00-0.02) Problem Qualifiers (1) Major depressive disorder with psychotic features: Major depression recurrence: recurrent Active/Remission status: currently active Major depression episode severity: severe Qualified Codes: F33.3 - Major depressive disorder, recurrent, severe with psychotic symptoms (2) Hypothyroidism: 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
[2016-05-09] MEDS: METFORMIN HCL 500 MG TAB PO SCH (17:39)
[2016-05-09] MEDS: CLOZAPINE PO SCH ×2 (21:11)
[2016-05-10 06:59] VITALS: BP_SYST 102; BP_SYST 118; BP_DIAS 71; BP_DIAS 82; PULSE 71; PULSE 91; TEMP 36.5
[2016-05-10] MEDS: FLUTICASONE PROPIONATE NA SPR 16 GM BTL NAE SCH (09:00)
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
[2016-05-10 09:42] VITALS: BP 106/74; PULSE 79
[2016-05-10] MEDS: LEVOTHYROXINE 125 MCG TAB PO SCH (09:43)
[2016-05-10] MEDS: DULOXETINE HCL 60 MG CAP PO SCH (09:44)
[2016-05-10] MEDS: TAMSULOSIN HCL 0.4 MG CAP PO SCH (09:44)
[2016-05-10] MEDS: PROPRANOLOL HCL 80 MG TAB PO SCH (09:45)
[2016-05-10] MEDS: MELOXICAM 7.5 MG TAB PO SCH (09:45)
[2016-05-10] MEDS: BACLOFEN 10 MG TAB PO SCH ×2 (09:45→21:11)
[2016-05-10] MEDS: GABAPENTIN 400 MG CAP PO SCH ×3 (09:45→21:12)
[2016-05-10] MEDS: GABAPENTIN 100 MG CAP PO SCH ×3 (09:46→21:12)
[2016-05-10] MEDS: LIDODERM (LIDOCAINE) PATCH 5% TD SCH ×2 (09:46→13:36)
[2016-05-10] MEDS: PANTOprazole SOD 40 MG TAB PO SCH (09:46)
[2016-05-10] MEDS: METFORMIN HCL 500 MG TAB PO SCH (17:36)
[2016-05-10] MEDS: CLOZAPINE PO SCH ×2 (21:14)
[2016-05-11 06:46] VITALS: BP_SYST 112; BP_SYST 113; BP_DIAS 76; BP_DIAS 88; PULSE 79; PULSE 87; TEMP 36.4
[2016-05-11 08:00] LABS: BASO % 0.5 %; BASO ABS # 0.03 K/uL (0-0.2); COMPLETE YES; EOS % 3.8 %; HEMATOCRIT 39.4 % (37-47); IG% 0.2 %; LYMPH % 28.3 %; LYMPH ABS # 1.86 K/uL (1.2-3.4); MEAN CELL VOLUME 85.1 fL (80-100); MEAN CORPUSCULAR HEMOGLOBIN 28.7 pg (25-34); MEAN CORPUSCULAR HGB CONC 33.8 g/dl (32-36); MEAN PLATELET VOLUME 9.4 fL (7.4-10.4); MONO % 5.2 %; PLATELET COUNT 265 K/uL (130-400); RED BLOOD COUNT 4.63 M/uL (4.2-5.4); WHITE BLOOD COUNT 6.58 K/uL (4.8-10.8)
[2016-05-11] MEDS: DULOXETINE HCL 60 MG CAP PO SCH (08:45)
[2016-05-11] MEDS: FLUTICASONE PROPIONATE NA SPR 16 GM BTL NAE SCH (08:45)
[2016-05-11] MEDS: LEVOTHYROXINE 125 MCG TAB PO SCH (08:45)
[2016-05-11] MEDS: TAMSULOSIN HCL 0.4 MG CAP PO SCH (08:46)
[2016-05-11] MEDS: GABAPENTIN 400 MG CAP PO SCH ×3 (08:47→21:07)
[2016-05-11] MEDS: PANTOprazole SOD 40 MG TAB PO SCH (08:47)
[2016-05-11] MEDS: GABAPENTIN 100 MG CAP PO SCH ×3 (08:47→21:07)
[2016-05-11] MEDS: BACLOFEN 10 MG TAB PO SCH ×2 (08:47→21:06)
[2016-05-11] MEDS: PROPRANOLOL HCL 80 MG TAB PO SCH (08:47)
[2016-05-11] MEDS: MELOXICAM 7.5 MG TAB PO SCH (08:47)
[2016-05-11] MEDS: LIDODERM (LIDOCAINE) PATCH 5% TD SCH (09:39)
--- NOTE | 2016-05-11 10:33 | Psychiatric Progress Notes ---
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 Clozapine (Clozaril Tab/ Clozaril Tab) 150 mg HS PO 05/01/16 22:00 05/31/16 21:59 05/10/16 21:14 150 MG Lab Results Last 24 Hrs: Last 24 Hours Test 05/11/16 07:35 White Blood Count 6.58 K/uL Red Blood Count 4.63 M/uL Hemoglobin 13.3 g/dL Hematocrit 39.4 % Mean Corpuscular Volume 85.1 fL Mean Corpuscular Hemoglobin 28.7 pg Mean Corpuscular Hemoglobin Concent 33.8 g/dl Platelet Count 265 K/uL Mean Platelet Volume 9.4 fL Neutrophils (%) (Auto) 62.0 % Lymphocytes (%) (Auto) 28.3 % Monocytes (%) (Auto) 5.2 % Eosinophils (%) (Auto) 3.8 % Basophils (%) (Auto) 0.5 % Neutrophils # (Auto) 4.09 K/uL Lymphocytes # (Auto) 1.86 K/uL Monocytes # (Auto) 0.34 K/uL Eosinophils # (Auto) 0.25 K/uL Basophils # (Auto) 0.03 K/uL RDW Standard Deviation 42.2 fL RDW Coefficient of Variation 13.6 % Immature Granulocyte % (Auto) 0.2 % Immature Granulocyte # (Auto) 0.01 K/uL Problem Qualifiers (1) Major depressive disorder with psychotic features: Major depression recurrence: recurrent Active/Remission status: currently active Major depression episode severity: severe Qualified Codes: F33.3 - Major depressive disorder, recurrent, severe with psychotic symptoms (2) Hypothyroidism: 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
[2016-05-11] MEDS: METFORMIN HCL 500 MG TAB PO SCH (17:13)
[2016-05-11] MEDS: MAGNESIUM HYDROXIDE SUSP 30 ML UDC PO PRN (18:10)
[2016-05-11] MEDS: CLOZAPINE PO SCH ×2 (21:06)
[2016-05-12 07:05] VITALS: BP_SYST 108; BP_SYST 114; BP_DIAS 72; BP_DIAS 78; PULSE 76; PULSE 92; TEMP 36.8
[2016-05-12] MEDS: LEVOTHYROXINE 125 MCG TAB PO SCH (08:08)
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
[2016-05-12] MEDS: FLUTICASONE PROPIONATE NA SPR 16 GM BTL NAE SCH (09:00)
[2016-05-12] MEDS: LIDODERM (LIDOCAINE) PATCH 5% TD SCH (09:00)
[2016-05-12] MEDS: DULOXETINE HCL 60 MG CAP PO SCH (09:19)
[2016-05-12] MEDS: TAMSULOSIN HCL 0.4 MG CAP PO SCH (09:19)
[2016-05-12] MEDS: GABAPENTIN 400 MG CAP PO SCH ×3 (09:20→21:18)
[2016-05-12] MEDS: GABAPENTIN 100 MG CAP PO SCH ×3 (09:20→21:18)
[2016-05-12] MEDS: PROPRANOLOL HCL 80 MG TAB PO SCH (09:20)
[2016-05-12] MEDS: MELOXICAM 7.5 MG TAB PO SCH (09:20)
[2016-05-12] MEDS: PANTOprazole SOD 40 MG TAB PO SCH (09:20)
[2016-05-12] MEDS: BACLOFEN 10 MG TAB PO SCH ×2 (09:20→21:19)
[2016-05-12] MEDS: METFORMIN HCL 500 MG TAB PO SCH (17:23)
[2016-05-12] MEDS: CLOZAPINE PO SCH ×2 (21:19)
[2016-05-13 06:53] VITALS: BP_SYST 108; BP_SYST 112; BP_DIAS 72; BP_DIAS 79; PULSE 80; PULSE 96; TEMP 36.7
[2016-05-13] MEDS: LEVOTHYROXINE 125 MCG TAB PO SCH (07:58)
[2016-05-13] MEDS: TAMSULOSIN HCL 0.4 MG CAP PO SCH (08:52)
[2016-05-13] MEDS: DULOXETINE HCL 60 MG CAP PO SCH (08:52)
[2016-05-13] MEDS: PROPRANOLOL HCL 80 MG TAB PO SCH (08:53)
[2016-05-13] MEDS: GABAPENTIN 100 MG CAP PO SCH ×3 (08:53→21:38)
[2016-05-13] MEDS: MELOXICAM 7.5 MG TAB PO SCH (08:53)
[2016-05-13] MEDS: GABAPENTIN 400 MG CAP PO SCH ×3 (08:53→21:38)
[2016-05-13] MEDS: BACLOFEN 10 MG TAB PO SCH ×2 (08:53→21:37)
[2016-05-13] MEDS: PANTOprazole SOD 40 MG TAB PO SCH (08:54)
[2016-05-13] MEDS: LIDODERM (LIDOCAINE) PATCH 5% TD SCH (08:57)
[2016-05-13] MEDS: FLUTICASONE PROPIONATE NA SPR 16 GM BTL NAE SCH (08:57)
--- NOTE | 2016-05-13 10:25 | Psychiatric Progress Notes ---
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 Mean Corpuscular Hemoglobin Concent 33.8, Mean Platelet Volume 9.4, Neutrophils (%) (Auto) 62.0, Lymphocytes (%) (Auto) 28.3, Monocytes (%) (Auto) 5.2, Eosinophils (%) (Auto) 3.8, Basophils (%) (Auto) 0.5, Neutrophils # (Auto) 4.09, Lymphocytes # (Auto) 1.86, Monocytes # (Auto) 0.34, Eosinophils # (Auto) 0.25, Basophils # (Auto) 0.03 04/27/16 06:55 Test 02/21/16 15:46 02/21/16 16:00 02/21/16 19:59 03/10/16 15:45 Prothrombin Time 10.4 SECONDS (9.0-12.0) Prothromb Time International Ratio 1.0 (0.9-1.1) Activated Partial Thromboplast Time 29.9 SECONDS (21.0-31.0) Partial Thromboplastin Ratio 1.2 Direct Bilirubin mg/dl (0-0.2) Total Creatine Kinase 84 U/L (26-192) Lipase 201 U/L (73-393) Free Thyroxine 1.17 ng/dl (0.80-1.60) Human Chorionic Gonadotropin, Qual NEG (NEG) Chemistry Specimen Hemolysis Ethyl Alcohol mg/dL < 3.0 mg/dl (0-3) Urine WBC (Auto) 1-5 /hpf (0-5) Urine RBC (Auto) 0-4 /hpf (0-4) Urine Hyaline Casts (Auto) 1-5 /lpf (0-5) Urine Epithelial Cells (Auto) 10-20 /lpf (0-5) Urine Bacteria (Auto) NEG (NEG) Urine Opiates Screen NEG (NEG) Urine Methadone, Qualitative NEG (NEG) Urine Barbiturates NEG (NEG) Urine Phencyclidine (PCP) Level NEG (NEG) Ur Amphetamine/Methamphetamine NEG (NEG) MDMA (Ecstasy) Screen NEG (NEG) Urine Benzodiazepines Screen NEG (NEG) Urine Cocaine Metabolite NEG (NEG) Urine Marijuana (THC) NEG (NEG) Lab Scanned Report Lab Referral [id number] Total Bilirubin 0.5 mg/dl (0.2-1) Alanine Aminotransferase (ALT/SGPT) 22 U/L (12-78) Alkaline Phosphatase 66 U/L (45-117) Total Protein 6.7 gm/dl (6.4-8.2) Albumin 3.3 gm/dl (3.4-5.0) Globulin 3.4 gm/dl (2.5-4.0) Albumin/Globulin Ratio 1.0 (0.9-2) Test 03/10/16 18:18 03/15/16 07:31 03/16/16 11:21 03/19/16 21:36 Aspartate Amino Transf (AST/SGOT) 18 U/L (15-37) Thyroid Stimulating Hormone (TSH) 1.020 uIu/ml (0.300-4.500) Miscellaneous Test 2 Estimated Average Glucose 103 mg/dl Hemoglobin A1c 5.2 % (4.5-5.6) Vitamin B12 Level 375 pg/mL (211-911) Folate 9.58 ng/mL (>5.38) Creatine Kinase MB Ratio (0-3.0) Test 03/19/16 22:40 03/28/16 00:00 04/27/16 06:55 05/11/16 07:35 Creatine Kinase MB 5.9 ng/ml (0.5-3.6) Troponin I < 0.015 ng/ml (0-0.045) Urine Color YELLOW Urine Appearance CLEAR (CLEAR) Urine pH 8.0 (4.5-7.5) Urine Specific [place] 1.005 (1.000-1.030) Urine Protein NEG (NEG) Urine Glucose (UA) NEG (NEG) Urine Ketones NEG (NEG) Urine Occult Blood NEG (NEG) Urine Nitrite NEG (NEG) Urine Bilirubin NEG (NEG) Urine Urobilinogen NEG (NEG) Urine Leukocyte Esterase NEG (NEG) Anion Gap 7.0 mmol/L (3-11) Est Creatinine Clear Calc Drug Dose 158.5 ml/min Estimated GFR () 137.3 Estimated GFR (Non- 118.5 BUN/Creatinine Ratio 20.8 (10-20) Calcium Level 8.4 mg/dl (8.5-10.1) White Blood Count 6.58 K/uL (4.8-10.8) Red Blood Count 4.63 M/uL (4.2-5.4) Hemoglobin 13.3 g/dL (12.0-16.0) Hematocrit 39.4 % (37-47) Mean Corpuscular Volume 85.1 fL (80-100) Mean Corpuscular Hemoglobin 28.7 pg (25-34) Mean Corpuscular Hemoglobin Concent 33.8 g/dl (32-36) Platelet Count 265 K/uL (130-400) Mean Platelet Volume 9.4 fL (7.4-10.4) Neutrophils (%) (Auto) 62.0 % Lymphocytes (%) (Auto) 28.3 % Monocytes (%) (Auto) 5.2 % Eosinophils (%) (Auto) 3.8 % Basophils (%) (Auto) 0.5 % Neutrophils # (Auto) 4.09 K/uL (1.4-6.5) Lymphocytes # (Auto) 1.86 K/uL (1.2-3.4) Monocytes # (Auto) 0.34 K/uL (0.11-0.59) Eosinophils # (Auto) 0.25 K/uL (0-0.5) Basophils # (Auto) 0.03 K/uL (0-0.2) RDW Standard Deviation 42.2 fL (36.4-46.3) RDW Coefficient of Variation 13.6 % (11.5-14.5) Immature Granulocyte % (Auto) 0.2 % Immature Granulocyte # (Auto) 0.01 K/uL (0.00-0.02) Test 05/11/16 12:10 Bedside Glucose 100 mg/dl (70-90) Problem Qualifiers (1) Major depressive disorder with psychotic features: Major depression recurrence: recurrent Active/Remission status: currently active Major depression episode severity: severe Qualified Codes: F33.3 - Major depressive disorder, recurrent, severe with psychotic symptoms (2) Hypothyroidism: 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
[2016-05-13] MEDS: METFORMIN HCL 500 MG TAB PO SCH (17:22)
[2016-05-13] MEDS: CLOZAPINE PO SCH ×2 (21:38)
[2016-05-14 07:03] VITALS: BP_SYST 113; BP_SYST 138; BP_DIAS 77; BP_DIAS 81; PULSE 70; PULSE 90; TEMP 36.6
[2016-05-14] MEDS: LEVOTHYROXINE 125 MCG TAB PO SCH (08:03)
[2016-05-14] MEDS: FLUTICASONE PROPIONATE NA SPR 16 GM BTL NAE SCH (09:00)
[2016-05-14] MEDS: LIDODERM (LIDOCAINE) PATCH 5% TD SCH (09:00)
[2016-05-14] MEDS: TAMSULOSIN HCL 0.4 MG CAP PO SCH (09:59)
[2016-05-14] MEDS: DULOXETINE HCL 60 MG CAP PO SCH (09:59)
[2016-05-14] MEDS: PROPRANOLOL HCL 80 MG TAB PO SCH (10:00)
[2016-05-14] MEDS: MELOXICAM 7.5 MG TAB PO SCH (10:02)
[2016-05-14] MEDS: BACLOFEN 10 MG TAB PO SCH ×2 (10:02→21:16)
[2016-05-14] MEDS: PANTOprazole SOD 40 MG TAB PO SCH (10:03)
[2016-05-14] MEDS: GABAPENTIN 100 MG CAP PO SCH ×3 (10:03→21:17)
[2016-05-14] MEDS: GABAPENTIN 400 MG CAP PO SCH ×3 (10:03→21:17)
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
[2016-05-14] MEDS: METFORMIN HCL 500 MG TAB PO SCH (17:27)
[2016-05-14] MEDS: MAGNESIUM HYDROXIDE SUSP 30 ML UDC PO PRN (20:41)
[2016-05-14] MEDS: CLOZAPINE PO SCH ×2 (21:17)
[2016-05-15 06:29] VITALS: BP_SYST 111; BP_SYST 86; BP_DIAS 57; BP_DIAS 78; PULSE 116; PULSE 90; TEMP 36.5
[2016-05-15] MEDS: LIDODERM (LIDOCAINE) PATCH 5% TD SCH (09:00)
[2016-05-15] MEDS: FLUTICASONE PROPIONATE NA SPR 16 GM BTL NAE SCH (09:00)
[2016-05-15] MEDS: PROPRANOLOL HCL 80 MG TAB PO SCH (09:01)
[2016-05-15] MEDS: DULOXETINE HCL 60 MG CAP PO SCH (09:01)
[2016-05-15] MEDS: LEVOTHYROXINE 125 MCG TAB PO SCH (09:01)
[2016-05-15] MEDS: BACLOFEN 10 MG TAB PO SCH ×2 (09:03→21:49)
[2016-05-15] MEDS: PANTOprazole SOD 40 MG TAB PO SCH (09:03)
[2016-05-15] MEDS: GABAPENTIN 100 MG CAP PO SCH ×3 (09:03→21:50)
[2016-05-15] MEDS: TAMSULOSIN HCL 0.4 MG CAP PO SCH (09:03)
[2016-05-15] MEDS: MELOXICAM 7.5 MG TAB PO SCH (09:03)
[2016-05-15] MEDS: GABAPENTIN 400 MG CAP PO SCH ×3 (09:04→21:50)
[2016-05-15] MEDS ORDERED: ONDANSETRON 4 MG TAB PO PRN (11:00)
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
[2016-05-15] MEDS: MAGNESIUM HYDROXIDE SUSP 30 ML UDC PO PRN (17:19)
[2016-05-15] MEDS: METFORMIN HCL 500 MG TAB PO SCH (17:54)
[2016-05-15] MEDS: CLOZAPINE PO SCH ×2 (21:49)
[2016-05-16 07:12] VITALS: BP 111/80; PULSE 79; TEMP 36.4
[2016-05-16] MEDS: LEVOTHYROXINE 125 MCG TAB PO SCH (07:48)
[2016-05-16] MEDS: DULOXETINE HCL 60 MG CAP PO SCH (08:58)
[2016-05-16] MEDS: TAMSULOSIN HCL 0.4 MG CAP PO SCH (08:59)
[2016-05-16] MEDS: FLUTICASONE PROPIONATE NA SPR 16 GM BTL NAE SCH (09:00)
[2016-05-16] MEDS: PROPRANOLOL HCL 80 MG TAB PO SCH (09:00)
[2016-05-16] MEDS: BACLOFEN 10 MG TAB PO SCH ×2 (09:01→22:16)
[2016-05-16] MEDS: MELOXICAM 7.5 MG TAB PO SCH (09:02)
[2016-05-16] MEDS: GABAPENTIN 100 MG CAP PO SCH ×3 (09:02→22:16)
[2016-05-16] MEDS: GABAPENTIN 400 MG CAP PO SCH ×3 (09:03→22:16)
[2016-05-16] MEDS: PANTOprazole SOD 40 MG TAB PO SCH (09:51)
[2016-05-16] MEDS: LIDODERM (LIDOCAINE) PATCH 5% TD SCH (09:53)
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
[2016-05-16] MEDS: METFORMIN HCL 500 MG TAB PO SCH (17:36)
[2016-05-16] MEDS: CLOZAPINE PO SCH ×2 (22:16)
[2016-05-17 07:02] VITALS: BP 120/84; PULSE 72; TEMP 36.6
[2016-05-17] MEDS: LEVOTHYROXINE 125 MCG TAB PO SCH (08:29)
[2016-05-17] MEDS: FLUTICASONE PROPIONATE NA SPR 16 GM BTL NAE SCH (09:00)
[2016-05-17] MEDS: LIDODERM (LIDOCAINE) PATCH 5% TD SCH (09:00)
[2016-05-17] MEDS: DULOXETINE HCL 60 MG CAP PO SCH (09:46)
[2016-05-17] MEDS: TAMSULOSIN HCL 0.4 MG CAP PO SCH (09:47)
[2016-05-17] MEDS: PROPRANOLOL HCL 80 MG TAB PO SCH (09:47)
[2016-05-17] MEDS: BACLOFEN 10 MG TAB PO SCH ×2 (09:48→22:01)
[2016-05-17] MEDS: MELOXICAM 7.5 MG TAB PO SCH (09:49)
[2016-05-17] MEDS: GABAPENTIN 400 MG CAP PO SCH ×3 (09:50→22:02)
[2016-05-17] MEDS: GABAPENTIN 100 MG CAP PO SCH ×3 (09:50→22:02)
[2016-05-17] MEDS: PANTOprazole SOD 40 MG TAB PO SCH (09:51)
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
[2016-05-17] MEDS: METFORMIN HCL 500 MG TAB PO SCH (17:42)
[2016-05-17] MEDS: CLOZAPINE PO SCH ×2 (22:02)
[2016-05-18 07:05] VITALS: BP 128/84; PULSE 64; TEMP 36.8
[2016-05-18 07:10] LABS: BASO % 0.3 %; BASO ABS # 0.02 K/uL (0-0.2); COMPLETE YES; HEMATOCRIT 37.4 % (37-47); IG% 0.1 %; LYMPH % 26.7 %; LYMPH ABS # 1.81 K/uL (1.2-3.4); MEAN CELL VOLUME 85.6 fL (80-100); MEAN CORPUSCULAR HEMOGLOBIN 28.4 pg (25-34); MEAN CORPUSCULAR HGB CONC 33.2 g/dl (32-36); MEAN PLATELET VOLUME 9.8 fL (7.4-10.4); MONO % 6.5 %; NEUT % 62.4 %; PLATELET COUNT 231 K/uL (130-400); RED BLOOD COUNT 4.37 M/uL (4.2-5.4); WHITE BLOOD COUNT 6.79 K/uL (4.8-10.8)
[2016-05-18] MEDS: LEVOTHYROXINE 125 MCG TAB PO SCH (07:59)
[2016-05-18] MEDS: DULOXETINE HCL 60 MG CAP PO SCH (08:45)
[2016-05-18] MEDS: GABAPENTIN 100 MG CAP PO SCH ×3 (08:46→21:45)
[2016-05-18] MEDS: BACLOFEN 10 MG TAB PO SCH ×2 (08:46→21:44)
[2016-05-18] MEDS: GABAPENTIN 400 MG CAP PO SCH ×3 (08:46→21:45)
[2016-05-18] MEDS: MELOXICAM 7.5 MG TAB PO SCH (08:46)
[2016-05-18] MEDS: TAMSULOSIN HCL 0.4 MG CAP PO SCH (08:46)
[2016-05-18] MEDS: PROPRANOLOL HCL 80 MG TAB PO SCH (08:46)
[2016-05-18] MEDS: PANTOprazole SOD 40 MG TAB PO SCH (08:47)
[2016-05-18] MEDS: LIDODERM (LIDOCAINE) PATCH 5% TD SCH (08:47)
[2016-05-18] MEDS: FLUTICASONE PROPIONATE NA SPR 16 GM BTL NAE SCH (08:52)
--- NOTE | 2016-05-18 12:26 | Psychiatric Progress Notes ---
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 Tamsulosin HCl (Flomax Cap) 0.8 mg DAILY PO 03/24/16 09:00 05/23/16 23:59 05/18/16 08:46 0.8 MG Baclofen (Lioresal Tab) 10 mg BID PO 04/06/16 22:00 06/05/16 23:59 05/18/16 08:46 10 MG Metformin HCl (Glucophage Tab) 1,000 mg DAILYBD PO 04/21/16 17:15 05/21/16 17:14 05/17/16 17:42 1,000 MG Simethicone (Mylicon Chew Tab) 80 mg Q6H PRN PO 04/26/16 17:00 05/26/16 16:59 04/26/16 18:17 80 MG Clozapine/ Clozapine (Clozaril Tab/ Clozaril Tab) 150 mg HS PO 05/01/16 22:00 05/31/16 21:59 05/17/16 22:02 150 MG Ondansetron HCl (Zofran Tab) 4 mg Q6H PRN PO 05/15/16 11:00 06/14/16 10:59 Lab Results Last 24 Hrs: Last 24 Hours Test 05/18/16 06:55 White Blood Count 6.79 K/uL Red Blood Count 4.37 M/uL Hemoglobin 12.4 g/dL Hematocrit 37.4 % Mean Corpuscular Volume 85.6 fL Mean Corpuscular Hemoglobin 28.4 pg Mean Corpuscular Hemoglobin Concent 33.2 g/dl Platelet Count 231 K/uL Mean Platelet Volume 9.8 fL Neutrophils (%) (Auto) 62.4 % Lymphocytes (%) (Auto) 26.7 % Monocytes (%) (Auto) 6.5 % Eosinophils (%) (Auto) 4.0 % Basophils (%) (Auto) 0.3 % Neutrophils # (Auto) 4.24 K/uL Lymphocytes # (Auto) 1.81 K/uL Monocytes # (Auto) 0.44 K/uL Eosinophils # (Auto) 0.27 K/uL Basophils # (Auto) 0.02 K/uL RDW Standard Deviation 42.8 fL RDW Coefficient of Variation 13.5 % Immature Granulocyte % (Auto) 0.1 % Immature Granulocyte # (Auto) 0.01 K/uL Problem Qualifiers (1) Major depressive disorder with psychotic features: Major depression recurrence: recurrent Active/Remission status: currently active Major depression episode severity: severe Qualified Codes: F33.3 - Major depressive disorder, recurrent, severe with psychotic symptoms (2) Hypothyroidism: 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
[2016-05-18] MEDS: METFORMIN HCL 500 MG TAB PO SCH (18:01)
[2016-05-18] MEDS: CLOZAPINE PO SCH ×2 (21:45)
[2016-05-19 07:03] VITALS: BP_SYST 104; BP_SYST 126; BP_DIAS 77; BP_DIAS 86; PULSE 70; PULSE 74; TEMP 36.5
[2016-05-19] MEDS: LEVOTHYROXINE 125 MCG TAB PO SCH (08:38)
[2016-05-19] MEDS: FLUTICASONE PROPIONATE NA SPR 16 GM BTL NAE SCH (08:40)
[2016-05-19] MEDS: DULOXETINE HCL 60 MG CAP PO SCH (08:40)
[2016-05-19] MEDS: TAMSULOSIN HCL 0.4 MG CAP PO SCH (08:41)
[2016-05-19] MEDS: GABAPENTIN 100 MG CAP PO SCH ×3 (08:43→21:02)
[2016-05-19] MEDS: PROPRANOLOL HCL 80 MG TAB PO SCH (08:43)
[2016-05-19] MEDS: MELOXICAM 7.5 MG TAB PO SCH (08:43)
[2016-05-19] MEDS: BACLOFEN 10 MG TAB PO SCH ×2 (08:43→21:02)
[2016-05-19] MEDS: GABAPENTIN 400 MG CAP PO SCH ×3 (08:44→21:02)
[2016-05-19] MEDS: PANTOprazole SOD 40 MG TAB PO SCH (08:44)
[2016-05-19] MEDS: LIDODERM (LIDOCAINE) PATCH 5% TD SCH (08:44)
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
[2016-05-19] MEDS: METFORMIN HCL 500 MG TAB PO SCH (17:23)
[2016-05-19] MEDS: CLOZAPINE PO SCH ×2 (21:02)
[2016-05-19] MEDS: hydrOXYzine HCL 25 MG TAB PO PRN (21:06)
[2016-05-20 07:06] VITALS: BP_SYST 124; BP_SYST 126; BP_DIAS 87; BP_DIAS 90; PULSE 68; PULSE 87; TEMP 36.4
[2016-05-20] MEDS: LIDODERM (LIDOCAINE) PATCH 5% TD SCH ×2 (09:00→14:10)
[2016-05-20] MEDS: FLUTICASONE PROPIONATE NA SPR 16 GM BTL NAE SCH (09:00)
[2016-05-20] MEDS: LEVOTHYROXINE 125 MCG TAB PO SCH (09:24)
[2016-05-20] MEDS: TAMSULOSIN HCL 0.4 MG CAP PO SCH (09:25)
[2016-05-20] MEDS: DULOXETINE HCL 60 MG CAP PO SCH (09:25)
[2016-05-20] MEDS: BACLOFEN 10 MG TAB PO SCH ×2 (09:27→21:23)
[2016-05-20] MEDS: MELOXICAM 7.5 MG TAB PO SCH (09:27)
[2016-05-20] MEDS: PROPRANOLOL HCL 80 MG TAB PO SCH (09:27)
[2016-05-20] MEDS: GABAPENTIN 100 MG CAP PO SCH ×3 (09:28→21:23)
[2016-05-20] MEDS: PANTOprazole SOD 40 MG TAB PO SCH (09:28)
[2016-05-20] MEDS: GABAPENTIN 400 MG CAP PO SCH ×3 (09:28→21:23)
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
[2016-05-20] MEDS: METFORMIN HCL 500 MG TAB PO SCH (17:31)
[2016-05-20] MEDS: MAGNESIUM HYDROXIDE SUSP 30 ML UDC PO PRN (17:31)
[2016-05-20] MEDS: CLOZAPINE PO SCH ×2 (21:24)
[2016-05-21 06:55] VITALS: BP_SYST 118; BP_SYST 139; BP_DIAS 81; BP_DIAS 96; PULSE 69; PULSE 76; TEMP 36.6
[2016-05-21] MEDS: GABAPENTIN 400 MG CAP PO SCH ×3 (08:54→23:02)
[2016-05-21] MEDS: TAMSULOSIN HCL 0.4 MG CAP PO SCH (08:54)
[2016-05-21] MEDS: GABAPENTIN 100 MG CAP PO SCH ×3 (08:54→23:02)
[2016-05-21] MEDS: BACLOFEN 10 MG TAB PO SCH ×2 (08:55→23:02)
[2016-05-21] MEDS: LEVOTHYROXINE 125 MCG TAB PO SCH (08:55)
[2016-05-21] MEDS: FLUTICASONE PROPIONATE NA SPR 16 GM BTL NAE SCH (08:55)
[2016-05-21] MEDS: DULOXETINE HCL 60 MG CAP PO SCH (08:55)
[2016-05-21] MEDS: PANTOprazole SOD 40 MG TAB PO SCH (08:55)
[2016-05-21] MEDS: MELOXICAM 7.5 MG TAB PO SCH (08:55)
[2016-05-21] MEDS: METFORMIN HCL 500 MG TAB PO SCH ×2 (08:55→17:52)
--- NOTE | 2016-05-21 10:34 | Psychiatric Progress Notes ---
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 Casts (Auto) 1-5 /lpf (0-5) Urine Epithelial Cells (Auto) 10-20 /lpf (0-5) Urine Bacteria (Auto) NEG (NEG) Urine Opiates Screen NEG (NEG) Urine Methadone, Qualitative NEG (NEG) Urine Barbiturates NEG (NEG) Urine Phencyclidine (PCP) Level NEG (NEG) Ur Amphetamine/Methamphetamine NEG (NEG) MDMA (Ecstasy) Screen NEG (NEG) Urine Benzodiazepines Screen NEG (NEG) Urine Cocaine Metabolite NEG (NEG) Urine Marijuana (THC) NEG (NEG) Lab Scanned Report Lab Referral [id number] Total Bilirubin 0.5 mg/dl (0.2-1) Alanine Aminotransferase (ALT/SGPT) 22 U/L (12-78) Alkaline Phosphatase 66 U/L (45-117) Total Protein 6.7 gm/dl (6.4-8.2) Albumin 3.3 gm/dl (3.4-5.0) Globulin 3.4 gm/dl (2.5-4.0) Albumin/Globulin Ratio 1.0 (0.9-2) Test 03/10/16 18:18 03/15/16 07:31 03/16/16 11:21 03/19/16 21:36 Aspartate Amino Transf (AST/SGOT) 18 U/L (15-37) Thyroid Stimulating Hormone (TSH) 1.020 uIu/ml (0.300-4.500) Miscellaneous Test 2 Estimated Average Glucose 103 mg/dl Hemoglobin A1c 5.2 % (4.5-5.6) Vitamin B12 Level 375 pg/mL (211-911) Folate 9.58 ng/mL (>5.38) Creatine Kinase MB Ratio (0-3.0) Test 03/19/16 22:40 03/28/16 00:00 04/27/16 06:55 05/11/16 12:10 Creatine Kinase MB 5.9 ng/ml (0.5-3.6) Troponin I < 0.015 ng/ml (0-0.045) Urine Color YELLOW Urine Appearance CLEAR (CLEAR) Urine pH 8.0 (4.5-7.5) Urine Specific [place] 1.005 (1.000-1.030) Urine Protein NEG (NEG) Urine Glucose (UA) NEG (NEG) Urine Ketones NEG (NEG) Urine Occult Blood NEG (NEG) Urine Nitrite NEG (NEG) Urine Bilirubin NEG (NEG) Urine Urobilinogen NEG (NEG) Urine Leukocyte Esterase NEG (NEG) Anion Gap 7.0 mmol/L (3-11) Est Creatinine Clear Calc Drug Dose 158.5 ml/min Estimated GFR () 137.3 Estimated GFR (Non- 118.5 BUN/Creatinine Ratio 20.8 (10-20) Calcium Level 8.4 mg/dl (8.5-10.1) Bedside Glucose 100 mg/dl (70-90) Test 05/18/16 06:55 White Blood Count 6.79 K/uL (4.8-10.8) Red Blood Count 4.37 M/uL (4.2-5.4) Hemoglobin 12.4 g/dL (12.0-16.0) Hematocrit 37.4 % (37-47) Mean Corpuscular Volume 85.6 fL (80-100) Mean Corpuscular Hemoglobin 28.4 pg (25-34) Mean Corpuscular Hemoglobin Concent 33.2 g/dl (32-36) Platelet Count 231 K/uL (130-400) Mean Platelet Volume 9.8 fL (7.4-10.4) Neutrophils (%) (Auto) 62.4 % Lymphocytes (%) (Auto) 26.7 % Monocytes (%) (Auto) 6.5 % Eosinophils (%) (Auto) 4.0 % Basophils (%) (Auto) 0.3 % Neutrophils # (Auto) 4.24 K/uL (1.4-6.5) Lymphocytes # (Auto) 1.81 K/uL (1.2-3.4) Monocytes # (Auto) 0.44 K/uL (0.11-0.59) Eosinophils # (Auto) 0.27 K/uL (0-0.5) Basophils # (Auto) 0.02 K/uL (0-0.2) RDW Standard Deviation 42.8 fL (36.4-46.3) RDW Coefficient of Variation 13.5 % (11.5-14.5) Immature Granulocyte % (Auto) 0.1 % Immature Granulocyte # (Auto) 0.01 K/uL (0.00-0.02) Problem Qualifiers (1) Major depressive disorder with psychotic features: Major depression recurrence: recurrent Active/Remission status: currently active Major depression episode severity: severe Qualified Codes: F33.3 - Major depressive disorder, recurrent, severe with psychotic symptoms (2) Hypothyroidism: 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
[2016-05-21] MEDS: PROPRANOLOL HCL 80 MG TAB PO SCH (10:36)
[2016-05-21] MEDS: LIDODERM (LIDOCAINE) PATCH 5% TD SCH ×2 (10:37→11:39)
[2016-05-21] MEDS: CLOZAPINE PO SCH ×2 (23:02)
[2016-05-22 06:58] VITALS: BP_SYST 126; BP_SYST 134; BP_DIAS 84; BP_DIAS 89; PULSE 62; PULSE 66; TEMP 36.6
[2016-05-22] MEDS: DULOXETINE HCL 60 MG CAP PO SCH (08:55)
[2016-05-22] MEDS: LEVOTHYROXINE 125 MCG TAB PO SCH (08:55)
[2016-05-22] MEDS: TAMSULOSIN HCL 0.4 MG CAP PO SCH (08:55)
[2016-05-22] MEDS: METFORMIN HCL 500 MG TAB PO SCH ×2 (08:56→17:19)
[2016-05-22] MEDS: PROPRANOLOL HCL 80 MG TAB PO SCH (08:57)
[2016-05-22] MEDS: MELOXICAM 7.5 MG TAB PO SCH (08:57)
[2016-05-22] MEDS: BACLOFEN 10 MG TAB PO SCH ×2 (08:57→21:40)
[2016-05-22] MEDS: GABAPENTIN 400 MG CAP PO SCH ×3 (08:57→21:41)
[2016-05-22] MEDS: GABAPENTIN 100 MG CAP PO SCH ×3 (08:57→21:41)
[2016-05-22] MEDS: PANTOprazole SOD 40 MG TAB PO SCH (08:57)
[2016-05-22] MEDS: FLUTICASONE PROPIONATE NA SPR 16 GM BTL NAE SCH (09:00)
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
[2016-05-22] MEDS: CLOZAPINE PO SCH ×2 (21:41)
[2016-05-23 07:05] VITALS: BP_SYST 110; BP_SYST 125; BP_DIAS 77; BP_DIAS 85; PULSE 77; PULSE 92; TEMP 36.6
[2016-05-23] MEDS: FLUTICASONE PROPIONATE NA SPR 16 GM BTL NAE SCH (09:00)
[2016-05-23] MEDS: LEVOTHYROXINE 125 MCG TAB PO SCH (09:29)
[2016-05-23] MEDS: DULOXETINE HCL 60 MG CAP PO SCH (09:30)
[2016-05-23] MEDS: TAMSULOSIN HCL 0.4 MG CAP PO SCH (09:30)
[2016-05-23] MEDS: METFORMIN HCL 500 MG TAB PO SCH ×2 (09:31→17:26)
[2016-05-23] MEDS: PROPRANOLOL HCL 80 MG TAB PO SCH (09:32)
[2016-05-23] MEDS: MELOXICAM 7.5 MG TAB PO SCH (09:32)
[2016-05-23] MEDS: BACLOFEN 10 MG TAB PO SCH ×2 (09:32→21:11)
[2016-05-23] MEDS: GABAPENTIN 400 MG CAP PO SCH ×3 (09:33→21:11)
[2016-05-23] MEDS: GABAPENTIN 100 MG CAP PO SCH ×3 (09:33→21:12)
[2016-05-23] MEDS: PANTOprazole SOD 40 MG TAB PO SCH (09:34)
[2016-05-23] MEDS: LIDODERM (LIDOCAINE) PATCH 5% TD SCH (09:34)
--- NOTE | 2016-05-23 10:00 | Psychiatric Progress Notes ---
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 03/22/16 21:30 06/20/16 23:59 05/06/16 09:46 1 APPLN Haloperidol (Haldol Tab) 5 mg Q6 PRN PO 03/22/16 21:30 06/20/16 23:59 Pantoprazole Sodium (Protonix Tab) 40 mg QAM PO 03/23/16 09:00 06/21/16 23:59 05/23/16 09:34 40 MG Sumatriptan Succinate (Imitrex Tab) 100 mg DAILY PRN PO 03/22/16 21:30 06/20/16 23:59 Fluticasone Propionate (Flonase Nasal [place]) 2 sprays TODAY@0900 JUSTINO 03/23/16 09:00 06/21/16 23:59 04/12/16 09:16 2 SPRAYS Levothyroxine Sodium (Synthroid Tab) 125 mcg DAILYBB PO 03/24/16 08:00 06/22/16 23:59 05/23/16 09:29 125 MCG Duloxetine HCl (Cymbalta Cap) 120 mg QAM PO 03/24/16 09:00 06/22/16 23:59 05/23/16 09:30 120 MG Tamsulosin HCl (Flomax Cap) 0.8 mg DAILY PO 03/24/16 09:00 06/22/16 23:59 05/23/16 09:30 0.8 MG Baclofen (Lioresal Tab) 10 mg BID PO 04/06/16 22:00 06/05/16 23:59 05/23/16 09:32 10 MG Simethicone (Mylicon Chew Tab) 80 mg Q6H PRN PO 04/26/16 17:00 05/26/16 16:59 04/26/16 18:17 80 MG Clozapine/ Clozapine (Clozaril Tab/ Clozaril Tab) 150 mg HS PO 05/01/16 22:00 05/31/16 21:59 05/22/16 21:41 150 MG Ondansetron HCl (Zofran Tab) 4 mg Q6H PRN PO 05/15/16 11:00 06/14/16 10:59 Metformin HCl (Glucophage Tab) 750 mg BIDM PO 05/20/16 17:45 06/19/16 17:44 05/23/16 09:31 750 MG Lab Results Last 24 Hrs: 05/18/16 06:55 Red Blood Count 4.37, Mean Corpuscular Volume 85.6, Mean Corpuscular Hemoglobin 28.4, Mean Corpuscular Hemoglobin Concent 33.2, Mean Platelet Volume 9.8, Neutrophils (%) (Auto) 62.4, Lymphocytes (%) (Auto) 26.7, Monocytes (%) (Auto) 6.5, Eosinophils (%) (Auto) 4.0, Basophils (%) (Auto) 0.3, Neutrophils # (Auto) 4.24, Lymphocytes # (Auto) 1.81, Monocytes # (Auto) 0.44, Eosinophils # (Auto) 0.27, Basophils # (Auto) 0.02 04/27/16 06:55 Test 02/21/16 15:46 02/21/16 16:00 02/21/16 19:59 03/10/16 15:45 Prothrombin Time 10.4 SECONDS (9.0-12.0) Prothromb Time International Ratio 1.0 (0.9-1.1) Activated Partial Thromboplast Time 29.9 SECONDS (21.0-31.0) Partial Thromboplastin Ratio 1.2 Direct Bilirubin mg/dl (0-0.2) Total Creatine Kinase 84 U/L (26-192) Lipase 201 U/L (73-393) Free Thyroxine 1.17 ng/dl (0.80-1.60) Human Chorionic Gonadotropin, Qual NEG (NEG) Chemistry Specimen Hemolysis Ethyl Alcohol mg/dL < 3.0 mg/dl (0-3) Urine WBC (Auto) 1-5 /hpf (0-5) Urine RBC (Auto) 0-4 /hpf (0-4) Urine Hyaline Casts (Auto) 1-5 /lpf (0-5) Urine Epithelial Cells (Auto) 10-20 /lpf (0-5) Urine Bacteria (Auto) NEG (NEG) Urine Opiates Screen NEG (NEG) Urine Methadone, Qualitative NEG (NEG) Urine Barbiturates NEG (NEG) Urine Phencyclidine (PCP) Level NEG (NEG) Ur Amphetamine/Methamphetamine NEG (NEG) MDMA (Ecstasy) Screen NEG (NEG) Urine Benzodiazepines Screen NEG (NEG) Urine Cocaine Metabolite NEG (NEG) Urine Marijuana (THC) NEG (NEG) Lab Scanned Report Lab Referral [id number] Total Bilirubin 0.5 mg/dl (0.2-1) Alanine Aminotransferase (ALT/SGPT) 22 U/L (12-78) Alkaline Phosphatase 66 U/L (45-117) Total Protein 6.7 gm/dl (6.4-8.2) Albumin 3.3 gm/dl (3.4-5.0) Globulin 3.4 gm/dl (2.5-4.0) Albumin/Globulin Ratio 1.0 (0.9-2) Test 03/10/16 18:18 03/15/16 07:31 03/16/16 11:21 03/19/16 21:36 Aspartate Amino Transf (AST/SGOT) 18 U/L (15-37) Thyroid Stimulating Hormone (TSH) 1.020 uIu/ml (0.300-4.500) Miscellaneous Test 2 Estimated Average Glucose 103 mg/dl Hemoglobin A1c 5.2 % (4.5-5.6) Vitamin B12 Level 375 pg/mL (211-911) Folate 9.58 ng/mL (>5.38) Creatine Kinase MB Ratio (0-3.0) Test 03/19/16 22:40 03/28/16 00:00 04/27/16 06:55 05/11/16 12:10 Creatine Kinase MB 5.9 ng/ml (0.5-3.6) Troponin I < 0.015 ng/ml (0-0.045) Urine Color YELLOW Urine Appearance CLEAR (CLEAR) Urine pH 8.0 (4.5-7.5) Urine Specific [place] 1.005 (1.000-1.030) Urine Protein NEG (NEG) Urine Glucose (UA) NEG (NEG) Urine Ketones NEG (NEG) Urine Occult Blood NEG (NEG) Urine Nitrite NEG (NEG) Urine Bilirubin NEG (NEG) Urine Urobilinogen NEG (NEG) Urine Leukocyte Esterase NEG (NEG) Anion Gap 7.0 mmol/L (3-11) Est Creatinine Clear Calc Drug Dose 158.5 ml/min Estimated GFR () 137.3 Estimated GFR (Non- 118.5 BUN/Creatinine Ratio 20.8 (10-20) Calcium Level 8.4 mg/dl (8.5-10.1) Bedside Glucose 100 mg/dl (70-90) Test 05/18/16 06:55 White Blood Count 6.79 K/uL (4.8-10.8) Red Blood Count 4.37 M/uL (4.2-5.4) Hemoglobin 12.4 g/dL (12.0-16.0) Hematocrit 37.4 % (37-47) Mean Corpuscular Volume 85.6 fL (80-100) Mean Corpuscular Hemoglobin 28.4 pg (25-34) Mean Corpuscular Hemoglobin Concent 33.2 g/dl (32-36) Platelet Count 231 K/uL (130-400) Mean Platelet Volume 9.8 fL (7.4-10.4) Neutrophils (%) (Auto) 62.4 % Lymphocytes (%) (Auto) 26.7 % Monocytes (%) (Auto) 6.5 % Eosinophils (%) (Auto) 4.0 % Basophils (%) (Auto) 0.3 % Neutrophils # (Auto) 4.24 K/uL (1.4-6.5) Lymphocytes # (Auto) 1.81 K/uL (1.2-3.4) Monocytes # (Auto) 0.44 K/uL (0.11-0.59) Eosinophils # (Auto) 0.27 K/uL (0-0.5) Basophils # (Auto) 0.02 K/uL (0-0.2) RDW Standard Deviation 42.8 fL (36.4-46.3) RDW Coefficient of Variation 13.5 % (11.5-14.5) Immature Granulocyte % (Auto) 0.1 % Immature Granulocyte # (Auto) 0.01 K/uL (0.00-0.02) Problem Qualifiers (1) Major depressive disorder with psychotic features: Major depression recurrence: recurrent Active/Remission status: currently active Major depression episode severity: severe Qualified Codes: F33.3 - Major depressive disorder, recurrent, severe with psychotic symptoms (2) Hypothyroidism: 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
[2016-05-23] MEDS: CLOZAPINE PO SCH ×2 (21:12)
[2016-05-24 07:02] VITALS: BP 122/86; PULSE 62; TEMP 36.4
[2016-05-24] MEDS: LEVOTHYROXINE 125 MCG TAB PO SCH (07:37)
[2016-05-24] MEDS: LIDODERM (LIDOCAINE) PATCH 5% TD SCH (09:00)
[2016-05-24] MEDS: FLUTICASONE PROPIONATE NA SPR 16 GM BTL NAE SCH (09:00)
[2016-05-24] MEDS: DULOXETINE HCL 60 MG CAP PO SCH (09:45)
[2016-05-24] MEDS: TAMSULOSIN HCL 0.4 MG CAP PO SCH (09:45)
[2016-05-24] MEDS: METFORMIN HCL 500 MG TAB PO SCH ×2 (09:46→17:20)
[2016-05-24] MEDS: PROPRANOLOL HCL 80 MG TAB PO SCH (09:48)
[2016-05-24] MEDS: BACLOFEN 10 MG TAB PO SCH ×2 (09:49→21:20)
[2016-05-24] MEDS: MELOXICAM 7.5 MG TAB PO SCH (09:49)
[2016-05-24] MEDS: PANTOprazole SOD 40 MG TAB PO SCH (09:50)
[2016-05-24] MEDS: GABAPENTIN 100 MG CAP PO SCH ×3 (09:50→21:21)
[2016-05-24] MEDS: GABAPENTIN 400 MG CAP PO SCH ×3 (09:50→21:22)
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
[2016-05-24] MEDS: CLOZAPINE PO SCH ×2 (21:22)
[2016-05-25 07:10] VITALS: BP_SYST 118; BP_SYST 120; BP_DIAS 57; BP_DIAS 80; PULSE 78; PULSE 87; TEMP 36.5
[2016-05-25 07:30] LABS: BASO % 0.4 %; BASO ABS # 0.03 K/uL (0-0.2); COMPLETE YES; HEMATOCRIT 37.6 % (37-47); IG% 0.1 %; LYMPH % 27.9 %; LYMPH ABS # 1.95 K/uL (1.2-3.4); MEAN CELL VOLUME 85.6 fL (80-100); MEAN CORPUSCULAR HEMOGLOBIN 28.7 pg (25-34); MEAN CORPUSCULAR HGB CONC 33.5 g/dl (32-36); MEAN PLATELET VOLUME 9.4 fL (7.4-10.4); MONO % 7.4 %; NEUT % 60.2 %; PLATELET COUNT 236 K/uL (130-400); RED BLOOD COUNT 4.39 M/uL (4.2-5.4); WHITE BLOOD COUNT 6.98 K/uL (4.8-10.8)
[2016-05-25] MEDS: DULOXETINE HCL 60 MG CAP PO SCH (08:39)
[2016-05-25] MEDS: LEVOTHYROXINE 125 MCG TAB PO SCH (08:39)
[2016-05-25] MEDS: TAMSULOSIN HCL 0.4 MG CAP PO SCH (08:39)
[2016-05-25] MEDS: METFORMIN HCL 500 MG TAB PO SCH ×2 (08:40→17:25)
[2016-05-25] MEDS: BACLOFEN 10 MG TAB PO SCH ×2 (08:41→21:06)
[2016-05-25] MEDS: PROPRANOLOL HCL 80 MG TAB PO SCH (08:41)
[2016-05-25] MEDS: PANTOprazole SOD 40 MG TAB PO SCH (08:42)
[2016-05-25] MEDS: MELOXICAM 7.5 MG TAB PO SCH (08:42)
[2016-05-25] MEDS: GABAPENTIN 100 MG CAP PO SCH ×3 (08:42→21:06)
[2016-05-25] MEDS: GABAPENTIN 400 MG CAP PO SCH ×3 (08:42→21:06)
[2016-05-25] MEDS: FLUTICASONE PROPIONATE NA SPR 16 GM BTL NAE SCH (08:45)
[2016-05-25] MEDS: LIDODERM (LIDOCAINE) PATCH 5% TD SCH ×2 (08:46→13:39)
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
[2016-05-25] MEDS: CLOZAPINE PO SCH ×2 (21:06)
[2016-05-26 07:10] VITALS: BP 114/79; PULSE 78; TEMP 36.4
[2016-05-26] MEDS: LEVOTHYROXINE 125 MCG TAB PO SCH (08:24)
[2016-05-26] MEDS: LIDODERM (LIDOCAINE) PATCH 5% TD SCH (09:00)
[2016-05-26] MEDS: FLUTICASONE PROPIONATE NA SPR 16 GM BTL NAE SCH (09:00)
[2016-05-26] MEDS: BACLOFEN 10 MG TAB PO SCH ×2 (09:24→21:11)
[2016-05-26] MEDS: MELOXICAM 7.5 MG TAB PO SCH (09:24)
[2016-05-26] MEDS: DULOXETINE HCL 60 MG CAP PO SCH (09:24)
[2016-05-26] MEDS: LORATADINE 10 MG TAB PO SCH (09:24)
[2016-05-26] MEDS: METFORMIN HCL 500 MG TAB PO SCH ×2 (09:25→17:07)
[2016-05-26] MEDS: PANTOprazole SOD 40 MG TAB PO SCH (09:25)
[2016-05-26] MEDS: GABAPENTIN 100 MG CAP PO SCH ×3 (09:25→21:11)
[2016-05-26] MEDS: GABAPENTIN 400 MG CAP PO SCH ×3 (09:25→21:12)
[2016-05-26] MEDS: PROPRANOLOL HCL 80 MG TAB PO SCH (09:27)
[2016-05-26] MEDS: TAMSULOSIN HCL 0.4 MG CAP PO SCH (09:27)
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
[2016-05-26] MEDS: MAGNESIUM HYDROXIDE SUSP 30 ML UDC PO PRN (12:07)
[2016-05-26] MEDS: CLOZAPINE PO SCH ×2 (21:12)
[2016-05-27 06:59] VITALS: BP 113/77; PULSE 78; TEMP 36.6
[2016-05-27] MEDS: LEVOTHYROXINE 125 MCG TAB PO SCH (08:03)
[2016-05-27] MEDS: DULOXETINE HCL 60 MG CAP PO SCH (08:37)
[2016-05-27] MEDS: LORATADINE 10 MG TAB PO SCH (08:37)
[2016-05-27] MEDS: METFORMIN HCL 500 MG TAB PO SCH ×2 (08:39→17:28)
[2016-05-27] MEDS: TAMSULOSIN HCL 0.4 MG CAP PO SCH (08:39)
[2016-05-27] MEDS: MELOXICAM 7.5 MG TAB PO SCH (08:40)
[2016-05-27] MEDS: BACLOFEN 10 MG TAB PO SCH ×2 (08:40→21:03)
[2016-05-27] MEDS: PROPRANOLOL HCL 80 MG TAB PO SCH (08:40)
[2016-05-27] MEDS: GABAPENTIN 100 MG CAP PO SCH ×3 (08:40→21:03)
[2016-05-27] MEDS: PANTOprazole SOD 40 MG TAB PO SCH (08:41)
[2016-05-27] MEDS: GABAPENTIN 400 MG CAP PO SCH ×3 (08:41→21:04)
[2016-05-27] MEDS: FLUTICASONE PROPIONATE NA SPR 16 GM BTL NAE SCH (08:43)
[2016-05-27] MEDS: LIDODERM (LIDOCAINE) PATCH 5% TD SCH (08:44)
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
[2016-05-27] MEDS: CLOZAPINE PO SCH ×2 (21:05)
[2016-05-28 06:44] VITALS: BP 108/76; PULSE 78; TEMP 36.5
[2016-05-28] MEDS: LEVOTHYROXINE 125 MCG TAB PO SCH (07:54)
[2016-05-28 08:14] VITALS: BP 108/76; PULSE 78; TEMP 36.5; O2SAT 99
[2016-05-28] MEDS: FLUTICASONE PROPIONATE NA SPR 16 GM BTL NAE SCH (08:28)
[2016-05-28] MEDS: TAMSULOSIN HCL 0.4 MG CAP PO SCH (08:29)
[2016-05-28] MEDS: METFORMIN HCL 500 MG TAB PO SCH (08:29)
[2016-05-28] MEDS: LORATADINE 10 MG TAB PO SCH (08:29)
[2016-05-28] MEDS: DULOXETINE HCL 60 MG CAP PO SCH (08:29)
[2016-05-28] MEDS ORDERED: MBC75 PO (08:30)
[2016-05-28] MEDS ORDERED: NRN100 PO (08:30)
[2016-05-28] MEDS: PROPRANOLOL HCL 80 MG TAB PO SCH (08:30)
[2016-05-28] MEDS ORDERED: CLR10 PO (08:30)
[2016-05-28] MEDS ORDERED: CLOZ100T PO (08:30)
[2016-05-28] MEDS ORDERED: GLC500 PO (08:30)
[2016-05-28] MEDS ORDERED: BACL10TA PO (08:30)
[2016-05-28] MEDS ORDERED: PROP80TA30 PO (08:30)
[2016-05-28] MEDS ORDERED: CYM60 PO (08:30)
[2016-05-28] MEDS ORDERED: LDDP5 TD (08:30)
[2016-05-28] MEDS: MELOXICAM 7.5 MG TAB PO SCH (08:31)
[2016-05-28] MEDS: BACLOFEN 10 MG TAB PO SCH (08:31)
[2016-05-28] MEDS: GABAPENTIN 100 MG CAP PO SCH (08:31)
[2016-05-28] MEDS: GABAPENTIN 400 MG CAP PO SCH (08:31)
[2016-05-28] MEDS: LIDODERM (LIDOCAINE) PATCH 5% TD SCH (08:31)
[2016-05-28] MEDS: PANTOprazole SOD 40 MG TAB PO SCH (08:31)
--- NOTE | 2016-05-28 08:45 | Discharge Instructions ---
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 cardiac enzymes, and EKG. They felt her symptoms were likely secondary to anxiety, or psychosomatic, or represented malingering (as she was quite focused on getting narcotic pain medications). Orthopedic consultation was requested 03/23/2016, due to ongoing complaints of pain in the right wrist and hand. They recommended that she wear a brace, which had been provided but she was refusing to wear, and she was placed on a prednisone taper. They also recommended consideration of an EMG nerve conduction study as an outpatient, however the symptoms improved throughout the course of her stay. Her depressive symptoms did improve mildly throughout the course of her stay, and she showed greater engagement in treatment; however after multiple meetings with the [facility] service unit, the patient, and the patient's sister, it was determined that she was not yet well enough to live independently, and was transferred to [facility] for ongoing involuntary treatment on 05/28/2016. Day of Discharge Assessment: The patient states that she is "fine," and is anxious to get to [facility] and to the next stage of her treatment. She denies thoughts of harming herself or anyone else. She is very focused on getting her various belongings back, and is hoping to have access to more belongings well at the [facility] than she was allowed to have here on the acute inpatient unit. Overweight WF appearing stated age. Casually dressed and adequately groomed. Calm and cooperative. Seated in NAD, with fair eye contact and no abnormal movements. Speech is normal rate, volume, and tone. Mood is "fine," and affect is anxious. Thoughts are linear and goal directed. The patient denied suicidal and homicidal ideation. She denies hallucinations, and did not appear to be responding to internal stimuli. Cognition was grossly intact. Alert and oriented to person, place and time. Intelligence is consistent with level of education. Insight and and judgment are impaired. 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
== END 2016-05-28 09:18 | DRG 885 ==
LOC: C.EDB 14:31 → C.MHU 19:59
PROVIDERS: ADMIT Psychiatry & Neurology Child & Adolescent Psychiatry; ATTEND Psychiatry & Neurology Psychiatry
DX: F32.3 Major depressive disorder, single episode, severe with psychotic features (principal); F11.20 Opioid dependence, uncomplicated; E87.1 Hypo-osmolality and hyponatremia; S06.9X9S Unspecified intracranial injury with loss of consciousness of unspecified duration, sequela; F25.9 Schizoaffective disorder, unspecified; F22 Delusional disorders; E03.9 Hypothyroidism, unspecified; K59.00 Constipation, unspecified; N31.9 Neuromuscular dysfunction of bladder, unspecified; Z88.0 Allergy status to penicillin; Z91.14 Patient's other noncompliance with medication regimen; M54.2 Cervicalgia; K21.9 Gastro-esophageal reflux disease without esophagitis; G89.29 Other chronic pain; Z59.0 Homelessness; W17.89XS Other fall from one level to another, sequela

== ENCOUNTER 2018-08-27 22:27 | Inpatient (IN) ==
[2018-08-27 22:51] VITALS: O2SAT 96
[2018-08-27 23:40] LABS: Basophils # (auto) 0.03 K/uL (0-0.2); Basophils % (auto) 0.2 %; Hematocrit (blood only) 42.5 % (37-47); Hemoglobin 13.9 g/dL (12.0-16.0); Immature Granulocytes # (auto) 0.06 K/uL (0.00-0.02); Immature Granulocytes % (auto) 0.4 %; Lymphocytes # (auto) 2.23 K/uL (1.2-3.4); Lymphocytes % (auto) 14.4 %; Mean Corpuscular Hgb Conc 32.7 g/dL (32-36); Mean Corpuscular Volume 85.7 fL (80-100); Mean Platelet Volume 9.9 fL (7.4-10.4); Monocytes # (auto) 0.78 K/uL (0.11-0.59); Neutrophils # (auto) 12.42 K/uL (1.4-6.5); Platelet Count 306 K/uL (130-400); RDW Coefficient of Variation 15.3 % (11.5-14.5); RDW Standard Deviation 48.4 fL (36.4-46.3); Red Blood Count 4.96 M/uL (4.2-5.4); White Blood Count 15.52 K/uL (4.8-10.8)
[2018-08-28 00:13] LABS: Acetaminophen < 2 ug/ml (10-30)
[2018-08-28 00:14] LABS: Lithium 0.8 mmol/L (0.6-1.2); Salicylate < 1.7 mg/dl (2.8-20)
[2018-08-28 00:22] LABS: Albumin Level 3.2 gm/dl (3.4-5.0); BUN Creatinine Ratio 15.4 (10-20); Calcium 8.6 mg/dl (8.5-10.1); Creatinine Clr Calc Pharmacy 121.3 ml/min; Est GFR (African American) 89.9; Est GFR (Non-African American) 77.6; Potassium 2.8 mmol/L (3.5-5.1)
[2018-08-28 00:32] LABS: Albumin Globulin Ratio 0.8 (0.9-2); Bilirubin,Total 0.2 mg/dl (0.2-1); Globulin 4.2 gm/dl (2.5-4.0); Total Protein 7.4 gm/dl (6.4-8.2)
[2018-08-28 02:26] LABS: Appearance Urine Clear (Clear); Bilirubin Urine Negative (Negative); Blood Urine Negative (Negative); Color Urine Yellow; Glucose Urine UA Negative (Negative); Ketones Urine Negative (Negative); Leukocyte Esterase Urine Negative (Negative); Nitrite Urine Negative (Negative); Protein Urine Negative (Negative); Specific Gravity Urine 1.015 (1.000-1.030); Urobilinogen Urine Negative (Negative); pH Urine 6.5 (4.5-7.5)
[2018-08-28 02:27] LABS: Pregnancy Test, Urine Negative (Negative)
[2018-08-28 02:52] LABS: Amphetamines+Metham, Urine Neg (Neg); Barbiturates, Urine Neg (Neg); Benzodiazepine, Urine Neg (Neg); Cocaine, Urine Neg (Neg); MDMA (Ecstacy), Urine Neg (Neg); Methadone, Urine Neg (Neg); Opiate, Urine Neg (Neg); Phencyclidine, Urine Neg (Neg)
[2018-08-28] MEDS ORDERED: POTASSIUM CHLORIDE 20 MEQ TABCR PO STA (03:26)
--- NOTE | 2018-08-28 03:27 | Emergency Department Note ---
Entered by Bolivar Vyas acting as a scribe for Michael Aponte MD History of Present Illness General Chief complaint: Mental Health Evaluation Stated complaint: mhid Time Seen by Provider: 08/27/18 23:02 Source: patient and other (case management) History of Present Illness Onset (ago): hour(s) (earlier this evening) Location: head Pain Consistency: + constant Quality: + other (voices in her head) Associated symptoms: + denies other symptoms (missing medication other than her evening doses) The patient is a 33 y/o female who presents to the ED for a mental health eval uation. The patient is here on a mental health warrant. The patient states she does not know what happened other than constant voices telling her to cut her wrists earlier this evening. She reports she is taking her medication, but she has not taken her evening medications yet. The patient notes her case preparer and liner brought her into the ED. Case management states Gricelda was at the scene and picked the patient up from the [facility] clinic. Home Medications Home Medications Medication Instructions Recorded Confirmed Type Lactobacillus acidophilus 10 mg PO QAM 05/23/18 08/28/18 History baclofen 5 mg PO BID 05/23/18 08/28/18 History clozapine 100 mg PO QAM 05/23/18 08/28/18 History duloxetine 90 mg PO QAM 05/23/18 08/28/18 History ferrous sulfate 325 mg PO QAM 05/23/18 08/28/18 History furosemide See Rx Instructions .ROUTE .COMPLEX 05/23/18 08/28/18 History gabapentin 300 mg PO TID 05/23/18 08/28/18 History gabapentin 600 mg PO TID 05/23/18 08/28/18 History levonorgestrel-ethinyl estrad 1 tab PO QAM 05/23/18 05/23/18 History [Setlakin] lisinopril 10 mg PO QAM 05/23/18 08/28/18 History lithium carbonate 150 mg PO QAM 05/23/18 08/28/18 History lithium carbonate 300 mg PO QAM 05/23/18 08/28/18 History metformin 500 mg PO BIDM 05/23/18 08/28/18 History mirabegron [Myrbetriq] 25 mg PO HS 05/23/18 08/28/18 History polyethylene glycol 3350 17 g PO BID PRN 05/23/18 08/28/18 History spironolactone 25 mg PO QAM 05/23/18 08/28/18 History atorvastatin 10 mg PO QAM 08/28/18 08/28/18 History clozapine 300 mg HS 08/28/18 08/28/18 History docusate sodium [Colace] 100 mg PO BID 08/28/18 08/28/18 History levothyroxine 137 mcg PO DAILY 08/28/18 08/28/18 History lithium carbonate 600 mg PO HS 08/28/18 08/28/18 History ondansetron 8 mg PO Q8 PRN 08/28/18 08/28/18 History potassium chloride 10 meq PO QAM 08/28/18 08/28/18 History risperidone microspheres See Rx Instructions .ROUTE .COMPLEX 08/28/18 08/28/18 History [Risperdal Consta] simethicone 1 tab PO 5XD PRN 08/28/18 08/28/18 History topiramate 50 mg PO BID 08/28/18 08/28/18 History Allergies Allergy/AdvReac Type Severity Reaction Status Date / Time erythromycin base Allergy Mild Verified 05/23/18 15:14 cephalexin Allergy Unknown . Verified 05/23/18 15:14 Penicillins Allergy Unknown . Verified 05/23/18 15:14 Sulfa (Sulfonamide Allergy Unknown . Verified 05/23/18 15:14 Antibiotics) Past Med/Surg History Medical History Anxiety (Chronic) GERD (gastroesophageal reflux disease) (Chronic) Hypothyroidism (Chronic) Depression (Chronic) Hypothyroidism (Chronic) Neurogenic bladder (Chronic) Cervicalgia (Chronic) Migraine headache (Chronic) Chronic pain associated with significant psychosocial dysfunction (Chronic) Major depressive disorder with psychotic features (Chronic) TBI (traumatic brain injury) (Chronic) Surgical History H/O discectomy (Resolved) H/O arthroscopy of left knee (Resolved) Family History Other No pertinent family history Social History Preferred Language: Mauritanian Communication Ability: Effective Telemetry Registered Nurse Required: No Beliefs That Will Affect Care: None Feels Safe at Home: Yes Smoking Status: Former smoker Review of Systems See HPI for pertinent positives & negatives. and A total of 10 systems reviewed and were otherwise negative Physical Exam Vital Signs Vital Signs - 24 hr 08/28/18 03:31 08/28/18 06:12 Temperature 36.8 C Temperature Source Oral Pulse Rate [Right Radial] 88 Pulse Rhythm [Right Radial] Regular Pulse Strength [Right Radial] Normal Respiratory Rate 18 16 Respiratory Effort / Characteristics Non-Labored Spontaneous Respiratory Depth Normal Respiratory Pattern Regular Blood Pressure [Right Arm] 112/78 Blood Pressure Mean [Right Arm] 89 Blood Pressure Position [Right Arm] Sitting Pulse Oximetry 96 Oxygen Delivery Method Room Air Room Air GENERAL: Awake, alert, well-appearing, in no acute distress HENT: Normocephalic, atraumatic. Oropharynx unremarkable. EYES: Normal conjunctiva. Sclera non-icteric. NECK: Supple. No nuchal rigidity. FROM. No JVD. RESPIRATORY: Clear to auscultation. CARDIAC: Regular rate, normal rhythm. Extremities warm and well perfused. Pulses equal. ABDOMEN: Soft, non-distended. No tenderness to palpation. No rebound or guarding. No masses. RECTAL: Deferred. MUSCULOSKELETAL: Chest examination reveals no tenderness. The back is symmetrical on inspection without obvious abnormality. There is no CVA te nderness to palpation. No joint edema. LOWER EXTREMITIES: Calves are equal size bilaterally and non-tender. No edema. No discoloration. NEURO: Normal sensorium. No sensory or motor deficits noted. SKIN: No rash or jaundice noted. Course 2305: The patient was evaluated in room A05. A complete history and physical exam was performed. Administered Medications Al Hydrox/Mg Hydrox/Simethicone (Maalox) 30 ml PO Q4H PRN PRN Reason: GI Upset Stop: 09/27/18 05:12 Last Admin: 08/28/18 18:48 Dose: 30 ml Documented by: [id number] Baclofen (Lioresal) 5 mg PO BID LINNEA Stop: 09/27/18 20:59 Last Admin: 08/28/18 21:00 Dose: 5 mg Documented by: [id number] Clozapine (Clozapine) 300 mg PO HS LINNEA Stop: 09/27/18 21:59 Last Admin: 08/28/18 21:02 Dose: 300 mg Documented by: [id number] Clozapine (Clozaril) 25 mg PO [facility] Stop: 09/27/18 21:59 Last Admin: 08/28/18 21:03 Dose: 25 mg Documented by: [id number] Docusate Sodium (Colace) 100 mg PO BID [facility] Stop: 09/27/18 20:59 Last Admin: 08/28/18 21:00 Dose: 100 mg Documented by: [id number] Furosemide (Lasix) 80 mg PO BID@0800,1600 [facility] Stop: 09/27/18 15:59 Last Admin: 08/28/18 16:16 Dose: 80 mg Documented by: [id number] Gabapentin (Neurontin) 300 mg PO TID [facility] Stop: 09/27/18 20:59 Last Admin: 08/28/18 21:01 Dose: 300 mg Documented by: [id number] Gabapentin (Neurontin) 600 mg PO TID [facility] Stop: 09/27/18 20:59 Last Admin: 08/28/18 21:01 Dose: 600 mg Documented by: [id number] Hydroxyzine HCl (Vistaril) 25 mg PO Q4H PRN PRN Reason: Anxiety Stop: 09/27/18 05:12 Last Admin: 08/28/18 16:12 Dose: 25 mg Documented by: [id number] [place] Carbonate ([place] Carbonate) 600 mg PO [facility] Stop: 09/27/18 21:59 Last Admin: 08/28/18 21:03 Dose: 600 mg Documented by: [id number] Met[facility]) [facility] Stop: 09/27/18 17:44 Last Admin: 08/28/18 17:42 Dose: 500 mg Documented by: [id number] Mirabegron (Myrbetriq Er) 25 mg PO [facility] Stop: 09/27/18 21:59 Last Admin: 08/28/18 21:02 Dose: 25 mg Documented by: [id number] Ondansetron HCl (Zofran Odt) 8 mg PO Q8 PRN PRN Reason: Nausea Stop: 09/27/18 14:30 Last Admin: 08/28/18 16:13 Dose: 8 mg Documented by: [id number] Potassium Chloride (Klor-Con M10) 10 meq PO QAM LINNEA Stop: 09/27/18 14:59 Last Admin: 08/28/18 16:15 Dose: 10 meq Documented by: [id number] Topiramate (Topamax) 50 mg PO BID LINNEA Stop: 09/27/18 20:59 Last Admin: 08/28/18 21:02 Dose: 50 mg Documented by: [id number] Discontinued Medications Potassium Chloride (Klor-Con M20) 40 meq PO NOW STA Stop: 08/28/18 03:27 Last Admin: 08/28/18 03:47 Dose: 40 meq Documented by: [id number] Medical Decision Making Differential Diagnosis Differential diagnoses considered include mood disorder, infection, hypoglycemia, electrolyte abnormalities, cardiac sources, intracerebral event, toxicologic, neurologic, as well as others. Medical Records Attestation: I reviewed the patient's medical records. Home Medications Current Medication List: was personally reviewed by me Laboratory Data Attestation: I reviewed the patient's lab results. Result diagrams: 08/27/18 23:13 08/27/18 23:13 Lab Results 08/27/18 08/27/18 08/27/18 Range/Units 23:13 23:13 23:13 WBC 15.52 H (4.8-10.8) K/uL RBC 4.96 (4.2-5.4) M/uL Hgb 13.9 (12.0-16.0) g/dL Hct 42.5 (37-47) % MCV 85.7 (80-100) fL MCH 28.0 (25-34) pg MCHC 32.7 (32-36) g/dL RDW Std Deviation 48.4 H (36.4-46.3) fL RDW Coeff of Manohar 15.3 H (11.5-14.5) % Plt Count 306 (130-400) K/uL MPV 9.9 (7.4-10.4) fL Immature Gran % (Auto) 0.4 % Neut % (Auto) 80.0 % Lymph % (Auto) 14.4 % Tate % (Auto) 5.0 % Eos % (Auto) 0.0 % Baso % (Auto) 0.2 % Immature Gran # (Auto) 0.06 H (0.00-0.02) K/uL Neut # (Auto) 12.42 H (1.4-6.5) K/uL Lymph # (Auto) 2.23 (1.2-3.4) K/uL Tate # (Auto) 0.78 H (0.11-0.59) K/uL Eos # (Auto) 0.00 (0-0.5) K/uL Baso # (Auto) 0.03 (0-0.2) K/uL Sodium 136 (136-145) mmol/L Potassium 2.8 L (3.5-5.1) mmol/L Chloride 100 (98-107) mmol/L Carbon Dioxide 25 (21-32) mmol/L Anion Gap 11.0 (3-11) BUN 15 (7-18) mg/dl Creatinine 0.95 (0.6-1.2) mg/dl Est Cr Clr Drug Dosing 121.3 ml/min Est GFR ( Amer) 89.9 Est GFR (Non-Af Amer) 77.6 BUN/Creatinine Ratio 15.4 (10-20) Glucose 99 (70-99) mg/dl Calcium 8.6 (8.5-10.1) mg/dl Total Bilirubin 0.2 (0.2-1) mg/dl AST 27 (15-37) U/L ALT 49 (12-78) U/L Alkaline Phosphatase 80 (45-117) U/L Total Protein 7.4 (6.4-8.2) gm/dl Albumin 3.2 L (3.4-5.0) gm/dl Globulin 4.2 H (2.5-4.0) gm/dl Albumin/Globulin Ratio 0.8 L (0.9-2) TSH 1.430 (0.300-4.500) uIu/ml Urine Color Urine Appearance (Clear) Urine pH (4.5-7.5) Ur Specific Maple (1.000-1.030) Urine Protein (Negative) Urine Glucose (UA) (Negative) Urine Ketones (Negative) Urine Blood (Negative) Urine Nitrite (Negative) Urine Bilirubin (Negative) Urine Urobilinogen (Negative) Ur Leukocyte Esterase (Negative) Urine Test (Negative) POC Ur Test (NEG) Nasal Screen MRSA (PCR) (Negative) Salicylates < 1.7 L (2.8-20) mg/dl Urine Opiates Screen (Neg) Ur Methadone, Qual (Neg) Acetaminophen < 2 L (10-30) ug/ml Urine Barbiturates (Neg) Ur Phencyclidine (PCP) (Neg) U Amphetamin/Meth Scrn (Neg) MDMA (Ecstasy) Screen (Neg) U Benzodiazepines Scrn (Neg) [place] 0.8 (0.6-1.2) mmol/L Ur Cocaine Metabolite (Neg) U Marijuana (THC) Screen (Neg) Ethyl Alcohol mg/dL (0-3) mg/dl 08/27/18 08/28/18 08/28/18 Range/Units 23:13 02:05 02:05 WBC (4.8-10.8) K/uL RBC (4.2-5.4) M/uL Hgb (12.0-16.0) g/dL Hct (37-47) % MCV (80-100) fL MCH (25-34) pg MCHC (32-36) g/dL RDW Std Deviation (36.4-46.3) fL RDW Coeff of Manohar (11.5-14.5) % Plt Count (130-400) K/uL MPV (7.4-10.4) fL Immature Gran % (Auto) % Neut % (Auto) % Lymph % (Auto) % Tate % (Auto) % Eos % (Auto) % Baso % (Auto) % Immature Gran # (Auto) (0.00-0.02) K/uL Neut # (Auto) (1.4-6.5) K/uL Lymph # (Auto) (1.2-3.4) K/uL Tate # (Auto) (0.11-0.59) K/uL Eos # (Auto) (0-0.5) K/uL Baso # (Auto) (0-0.2) K/uL Sodium (136-145) mmol/L Potassium (3.5-5.1) mmol/L Chloride (98-107) mmol/L Carbon Dioxide (21-32) mmol/L Anion Gap (3-11) BUN (7-18) mg/dl Creatinine (0.6-1.2) mg/dl Est Cr Clr Drug Dosing ml/min Est GFR ( Amer) Est GFR (Non-Af Amer) BUN/Creatinine Ratio (10-20) Glucose (70-99) mg/dl Calcium (8.5-10.1) mg/dl Total Bilirubin (0.2-1) mg/dl AST (15-37) U/L ALT (12-78) U/L Alkaline Phosphatase (45-117) U/L Total Protein (6.4-8.2) gm/dl Albumin (3.4-5.0) gm/dl Globulin (2.5-4.0) gm/dl Albumin/Globulin Ratio (0.9-2) TSH (0.300-4.500) uIu/ml Urine Color Yellow Urine Appearance Clear (Clear) Urine pH 6.5 (4.5-7.5) Ur Specific Maple 1.015 (1.000-1.030) Urine Protein Negative (Negative) Urine Glucose (UA) Negative (Negative) Urine Ketones Negative (Negative) Urine Blood Negative (Negative) Urine Nitrite Negative (Negative) Urine Bilirubin Negative (Negative) Urine Urobilinogen Negative (Negative) Ur Leukocyte Esterase Negative (Negative) Urine Test (Negative) POC Ur Test (NEG) Nasal Screen MRSA (PCR) (Negative) Salicylates (2.8-20) mg/dl Urine Opiates Screen Neg (Neg) Ur Methadone, Qual Neg (Neg) Acetaminophen (10-30) ug/ml Urine Barbiturates Neg (Neg) Ur Phencyclidine (PCP) Neg (Neg) U Amphetamin/Meth Scrn Neg (Neg) MDMA (Ecstasy) Screen Neg (Neg) U Benzodiazepines Scrn Neg (Neg) [place] (0.6-1.2) mmol/L Ur Cocaine Metabolite Neg (Neg) U Marijuana (THC) Screen Neg (Neg) Ethyl Alcohol mg/dL < 3.0 (0-3) mg/dl 08/28/18 08/28/18 08/28/18 Range/Units 02:05 02:10 03:23 WBC (4.8-10.8) K/uL RBC (4.2-5.4) M/uL Hgb (12.0-16.0) g/dL Hct (37-47) % MCV (80-100) fL MCH (25-34) pg MCHC (32-36) g/dL RDW Std Deviation (36.4-46.3) fL RDW Coeff of Manohar (11.5-14.5) % Plt Count (130-400) K/uL MPV (7.4-10.4) fL Immature Gran % (Auto) % Neut % (Auto) % Lymph % (Auto) % Tate % (Auto) % Eos % (Auto) % Baso % (Auto) % Immature Gran # (Auto) (0.00-0.02) K/uL Neut # (Auto) (1.4-6.5) K/uL Lymph # (Auto) (1.2-3.4) K/uL Tate # (Auto) (0.11-0.59) K/uL Eos # (Auto) (0-0.5) K/uL Baso # (Auto) (0-0.2) K/uL Sodium (136-145) mmol/L Potassium (3.5-5.1) mmol/L Chloride (98-107) mmol/L Carbon Dioxide (21-32) mmol/L Anion Gap (3-11) BUN (7-18) mg/dl Creatinine (0.6-1.2) mg/dl Est Cr Clr Drug Dosing ml/min Est GFR ( Amer) Est GFR (Non-Af Amer) BUN/Creatinine Ratio (10-20) Glucose (70-99) mg/dl Calcium (8.5-10.1) mg/dl Total Bilirubin (0.2-1) mg/dl AST (15-37) U/L ALT (12-78) U/L Alkaline Phosphatase (45-117) U/L Total Protein (6.4-8.2) gm/dl Albumin (3.4-5.0) gm/dl Globulin (2.5-4.0) gm/dl Albumin/Globulin Ratio (0.9-2) TSH (0.300-4.500) uIu/ml Urine Color Urine Appearance (Clear) Urine pH (4.5-7.5) Ur Specific Maple (1.000-1.030) Urine Protein (Negative) Urine Glucose (UA) (Negative) Urine Ketones (Negative) Urine Blood (Negative) Urine Nitrite (Negative) Urine Bilirubin (Negative) Urine Urobilinogen (Negative) Ur Leukocyte Esterase (Negative) Urine Test Negative (Negative) POC Ur Test NEG (NEG) Nasal Screen MRSA (PCR) Negative (Negative) Salicylates (2.8-20) mg/dl Urine Opiates Screen (Neg) Ur Methadone, Qual (Neg) Acetaminophen (10-30) ug/ml Urine Barbiturates (Neg) Ur Phencyclidine (PCP) (Neg) U Amphetamin/Meth Scrn (Neg) MDMA (Ecstasy) Screen (Neg) U Benzodiazepines Scrn (Neg) [place] (0.6-1.2) mmol/L Ur Cocaine Metabolite (Neg) U Marijuana (THC) Screen (Neg) Ethyl Alcohol mg/dL (0-3) mg/dl Blood Pressure Blood Pressure Findings: Normal blood pressure Blood Pressure Disposition: did not require urgent referral MDM Narrative This is a 33-year-old female who presents emergency department complaining of threatening to harm herself. Upon arrival to the emergency department the patient denies saying any of these things however she is not forthcoming in what happened earlier today. Due to this I felt the need to uphold her 302. She was then admitted to the psychiatric service. Impression & Plan Mood disorder Discharge Plan Visit Data *Final* Discharge Date/Time: 08/28/18 05:40 Chief Complaint: Mental Health Evaluation Stated Complaint: mhid ED Provider: Michael Aponte Discharge Problem: Mood disorder Patient Disposition: Admitted As Inpatient Discharge Instructions Interventions: ED Discharge Assessment Last Done: 08/28/18 05:40 The carlos's documentation has been prepared under my direction and personally reviewed by me in its entirety. I confirm that the note above accurately reflects all work, treatment, procedures, and medical decision making performed by me.
[2018-08-28] MEDS ORDERED: ACETAMINOPHEN 325 MG TAB PO PRN (05:13)
[2018-08-28] MEDS ORDERED: SODIUM CHLORIDE 0.65% NA SOLN 45 ML (OCEAN) PRN (05:13)
[2018-08-28] MEDS ORDERED: BISMUTH SUBSALICYLATE PER ML OMNICELL CHARGE PO PRN (05:13)
[2018-08-28] MEDS ORDERED: MAGNESIUM HYDROXIDE SUSP 30 ML UDC PO PRN (05:13)
[2018-08-28] MEDS ORDERED: POLYETHYLENE (MIRALAX) 17 GM PACK PO PRN (14:31)
[2018-08-28] MEDS ORDERED: SIMETHICONE 80 MG CHEW PO PRN (15:00)
[2018-08-28] MEDS: ONDANSETRON 8MG OD TAB PO PRN (16:13)
[2018-08-28] MEDS: POTASSIUM CHLORIDE 10 MEQ TABCR PO SCH (16:15)
[2018-08-28] MEDS: FUROSEMIDE 80 MG TAB PO SCH (16:16)
[2018-08-28] MEDS: METFORMIN HCL 500 MG TAB PO SCH (17:42)
[2018-08-28] MEDS: ALUMINUM/MAGNESIUM SUSP 30 ML UDC PO PRN (18:48)
--- NOTE | 2018-08-28 20:16 | History & Physical ---
Date of Service August 28, 2018 Impression / Recommendations Impression 33-year-old female admitted involuntarily for inpatient psychiatric treatment due to worsening mood and auditory hallucinations which encourage patient to harm herself. Pt reported tolerating her current medication regimen, and sternly reports desire for us not to "mess with her medications" - she clarifies this means to not discontinue them. She verbalized willingness to titrate clozapine, as this was previously helpful to reduce the severity of her auditory hallucinations. Will titrate HS dose of clozapine to 325mg, while continuing morning dose of 100mg. Continue duloxetine 90mg; lithium 450mg qAM, 600mg qHS; and Risperdal Consta 25mg [id number]. Will request records from outpatient prescriber and therapist in order to gather collateral information. Pt will participate in group and recreational programming and will have the opportunity to develop effective coping strategies to better manage stressors. At this time, inpatient psychiatric admission is medically necessary due to worsening command hallucinations, voices urging her to kill herself, and previous times of acting of these command by cutting her wrists. Pt is at high risk of harm to herself should she be discharge without appropriate psychiatric treatment. Dr. Patrica Iqbal was directly involved in review and discussion of the patient's case and participated in medical decision making regarding treatment recommendations. (1) Major depressive disorder with psychotic features: 08/28 - Increase clozapine to 100mg qAM and 325mg qHS to target auditory hallucinations - Continue lithium, Cymbalta, and Risperdal Consta - Admitted to a locked inpatient behavioral health unit, on q15 minute safety checks - Encourage medication initiation/adjustments as indicated - Encourage participation in group and recreational therapies - Gather collateral information from outpatient providers - Suggest family meeting to involve outpatient supports in safety planning - Arrange appropriate aftercare (2) Hypothyroidism: 08/28 - continue home dose of levothyroxine (3) Back pain: 08/28 - continue home dose of baclofen (4) Migraine headache: 08/28 - continue home dose of topiramate (5) Obesity: 08/28 - continue metformin; encourage behavioral restrictions with regard to over-eating Risk Factors Assessment Male: No : Yes Do You Have Access To A Gun?: No Health Problems: Yes Mental Health Diagnoses: Yes Substance Use Disorders: No Previous Attempt: Yes Family History of Suicide: No Previous Psychiatric Hospitalization: Yes Hopelessness: Yes Smoker: No Protective Factors Assessment Hindu Beliefs: No : No Responsible for Young Children: No Employed: No Stable Relationships: No Supportive Family: No Psychiatric History Identifying Data ISAÍAS ALMENDAREZ is a 33-year-old F who currently lives in [place] at a R. Pt has a history of major depressive disorder with psychotic features and was discharged from [facility] 5 months ago. Pt was admitted on 08/28/18 05:13 on a 302 involuntary commitment for worsening depression and auditory hallucinations commanding patient to kill herself. Information is obtained from the patient and is somewhat reliable. Chief Complaint "The voices got louder and louder. They kept telling me to kill myself." History of Present Illness Isaías Almendarez is a 33-year-old female admitted involuntarily for inpatient psychia tric admission. Pt was brought to the ED by [place] [employer] on a 302 warrant with petitioning statement by [facility] shelter staff. Pt had reported to staff that "the voices are telling me to kill myself". It was also reported that the voices tell her not to take her medications. Pt was previously hospitalized on our unit in 02/2016 and was transferred to [facility] with a diagnosis of major depressive disorder with psychotic features. She was discharged in 04/2018 and has been living in a shelter. On assessment today, the patient is tired and only somewhat willing to participate in interview. She is unfortunately awoken from sleep, and provides on brief answers to questions asked. She does admit that the voices have been worsening in severity, telling her to "kill myself - with my razor blade." She reports about two voices that often verbalize negative thoughts. Pt states that as of her admission, she has not felt the urge to follow through with the voices ' commands. Pt admits that in the past she had cut her wrists when the voices had become overwhelming. Pt states her Clozaril had been titrated about 2-3 months prior to admission due to worsening command hallucinations, and the medication adjustment was effective to "tame em down some." Pt states her mood is "scared" due to the presence of the voices. After several minutes of gathering history, patient becomes distracted and especially preoccupied with eating breakfast - we discuss options for medications adjustments and she states, "I don't want you messing with my meds." She further clarifies that this means she does not want them discontinued, but she would agree with titrating doses if recommended. Past Psychiatric History Current Psychiatric Diagnosis: MDD recurrent, severe with psychotic features Outpatient Services: Psychiatrist - Dr. Hoffman - [facility] Therapist - Trini - [facility] Previous Psych Admissions: [facility], [facility] (11/2015 and 02/2016), [facility] 05/2016 - 04/2018 Do You Have Access To A Gun?: No History of Previous Suicide Attempt: Yes Describe Attempts in the Past: 2 1/2 years ago - OD on bottle of Gabapentin Past Medication Trials: Including, but not limited to: 1. Risperdal - EPS 2. Seroquel 3. Haldol 4. Neurontin 5. Cymbalta 6. Topamax 7. Haldol Decanoate 8. Wellbutrin 9. Klonopin 10.Invega 11.Amantadine 12.Clozaril 13.Alianza 14.Risperdal Consta Past Head Trauma/Neuro History History of Concussion/Seizure: Yes horse accident in 2011 Allergies Allergy/AdvReac Type Severity Reaction Status Date / Time erythromycin base Allergy Mild Verified 05/23/18 15:14 cephalexin Allergy Unknown . Verified 05/23/18 15:14 Penicillins Allergy Unknown . Verified 05/23/18 15:14 Sulfa (Sulfonamide Allergy Unknown . Verified 05/23/18 15:14 Antibiotics) Home Medications Home Medications Medication Instructions Recorded Confirmed Type Lactobacillus acidophilus 10 mg PO QAM 05/23/18 08/28/18 History baclofen 5 mg PO BID 05/23/18 08/28/18 History clozapine 100 mg PO QAM 05/23/18 08/28/18 History duloxetine 90 mg PO QAM 05/23/18 08/28/18 History ferrous sulfate 325 mg PO QAM 05/23/18 08/28/18 History furosemide See Rx Instructions .ROUTE .COMPLEX 05/23/18 08/28/18 History gabapentin 300 mg PO TID 05/23/18 08/28/18 History gabapentin 600 mg PO TID 05/23/18 08/28/18 History levonorgestrel-ethinyl estrad 1 tab PO QAM 05/23/18 05/23/18 History [Setlakin] lisinopril 10 mg PO QAM 05/23/18 08/28/18 History lithium carbonate 150 mg PO QAM 05/23/18 08/28/18 History lithium carbonate 300 mg PO QAM 05/23/18 08/28/18 History metformin 500 mg PO BIDM 05/23/18 08/28/18 History mirabegron [Myrbetriq] 25 mg PO HS 05/23/18 08/28/18 History polyethylene glycol 3350 17 g PO BID PRN 05/23/18 08/28/18 History spironolactone 25 mg PO QAM 05/23/18 08/28/18 History atorvastatin 10 mg PO QAM 08/28/18 08/28/18 History clozapine 300 mg HS 08/28/18 08/28/18 History docusate sodium [Colace] 100 mg PO BID 08/28/18 08/28/18 History levothyroxine 137 mcg PO DAILY 08/28/18 08/28/18 History lithium carbonate 600 mg PO HS 08/28/18 08/28/18 History ondansetron 8 mg PO Q8 PRN 08/28/18 08/28/18 History potassium chloride 10 meq PO QAM 08/28/18 08/28/18 History risperidone microspheres See Rx Instructions .ROUTE .COMPLEX 08/28/18 08/28/18 History [Risperdal Consta] simethicone 1 tab PO 5XD PRN 08/28/18 08/28/18 History topiramate 50 mg PO BID 08/28/18 08/28/18 History Family History Family History of: Depression and Anxiety Family Mental Health History Comment: Father - bipolar disorder Alcohol History Hx of Alcohol Use Over the Past 12 Months: No AUDIT Total Score: 0 Smoking Use Have You Smoked or Used Tobacco Products in the Last 30 Days: No Smoking Status: Former smoker Substance History Hx of Prescription Med Misuse Over the Past 12 Months: No Hx of Over the Counter Med Misuse Over the Past 12 Months: No Hx of Inhalent Misuse Over the Past 12 Months: No Hx of Organic Substance Use Over the Past 12 Months: No Hx of Illegal Substances/Street Drug Use Over Past 12 Months: No Problems as a Result of Past Substance Use: None Identified Denies presently - documented history of use of street drugs, organic substances, inhalants, and abuse of OTC medications. Had previously been seen at Dr. Madsen's Sub[facility] clinic Personal History Living Arrangements: [facility] Highest Grade Completed: Some College Employment Status: Unemployed Marital Status: Single Beliefs That Will Affect Care: None Hx Legal Problems: Yes (reports she "stole" 3 years ago, states it remains on her record) Psychological Trauma History Comment: Denies Patient History Medical History Anxiety (Chronic) GERD (gastroesophageal reflux disease) (Chronic) Hypothyroidism (Chronic) Depression (Chronic) Hypothyroidism (Chronic) Neurogenic bladder (Chronic) Cervicalgia (Chronic) Migraine headache (Chronic) Chronic pain associated with significant psychosocial dysfunction (Chronic) Major depressive disorder with psychotic features (Chronic) TBI (traumatic brain injury) (Chronic) Surgical History H/O discectomy (Resolved) H/O arthroscopy of left knee (Resolved) Family History Other No pertinent family history Social History Preferred Language: [place] Communication Ability: Effective Personalization Specialist Required: No Beliefs That Will Affect Care: None Feels Safe at Home: Yes Smoking Status: Former smoker Review of Systems Review of Systems: Constitutional: denied Cardiovascular: denied Respiratory: denied Gastrointestinal: denied Neurological: denied Psychiatric: denies symptoms other than stated above Total of at least 10 systems reviewed, pertinent positives as above and in HPI. Physical Exam Psychiatric: Orientation: alert, oriented x 3 and cooperative (superficially) Apperance: + disheveled (awoken from sleep ) Significantly obese, female appearing fatigued as awoken from sleep - disheveled and still wearing pajamas (a t-shirt and scrub pants), long hair is somewhat unruly. Pt does not appear to be in acute distress. Eye Contact: + fair eye contact Motor Behavior: + psychomotor retardation one episode of unsteady gait and jerking behavior as if unsteady sitting as well - resolved when requested to lie down again in bed soft, monotone speech - brief answers provided to questions Affect: + flat affect and + constricted affect Mood: + depressed mood and + anxious mood "scared, I've always been scared" Thought Process: clear/coherent thought process at times returning to repeat previous answers to questions Thought Content: + paranoid ("always feel like people are out to harm me") and + hopelessness Suicidal Thoughts: denies suicidal thoughts Homicidal Thoughts: denies homicidal thoughts Hallucinations: + auditory hallucinations (~2 voices commanding patient to take razor blade and kill herself); no visual hallucinations Cognition: language grossly intact; + attention not intact Estimated Intelligence: consistent with education level Insight: + impaired insight Judgement: + impaired judgement Vital Signs (Past 24 Hours): Last Vital Signs Temp 36.8 C 08/28/18 06:12 Pulse 88 08/28/18 06:12 Resp 16 08/28/18 06:12 BP 112/78 08/28/18 06:12 Pulse Ox 96 08/28/18 03:31 Exam Statement: A physical exam was performed in the ER prior to admission to the unit by Dr. Michael Aponte MD. I accept that physical as correct/medical clearance for the inpatient physical exam. Results & Data Laboratory Results Laboratory Results - last 24 hr 08/27/18 08/27/18 08/27/18 23:13 23:13 23:13 WBC 15.52 H RBC 4.96 Hgb 13.9 Hct 42.5 MCV 85.7 MCH 28.0 MCHC 32.7 RDW Std Deviation 48.4 H RDW Coeff of Manohar 15.3 H Plt Count 306 MPV 9.9 Immature Gran % (Auto) 0.4 Neut % (Auto) 80.0 Lymph % (Auto) 14.4 [place] % (Auto) 5.0 Eos % (Auto) 0.0 Baso % (Auto) 0.2 Immature Gran # (Auto) 0.06 H Neut # (Auto) 12.42 H Lymph # (Auto) 2.23 [place] # (Auto) 0.78 H Eos # (Auto) 0.00 Baso # (Auto) 0.03 Sodium 136 Potassium 2.8 L Chloride 100 Carbon Dioxide 25 Anion Gap 11.0 BUN 15 Creatinine 0.95 Est Cr Clr Drug Dosing 121.3 Est GFR ( Amer) 89.9 Est GFR (Non-Af Amer) 77.6 BUN/Creatinine Ratio 15.4 Glucose 99 Calcium 8.6 Total Bilirubin 0.2 AST 27 ALT 49 Alkaline Phosphatase 80 Total Protein 7.4 Albumin 3.2 L Globulin 4.2 H Albumin/Globulin Ratio 0.8 L TSH 1.430 Urine Color Urine Appearance Urine pH Ur Specific [place] Urine Protein Urine Glucose (UA) Urine Ketones Urine Blood Urine Nitrite Urine Bilirubin Urine Urobilinogen Ur Leukocyte Esterase Urine Test POC Ur Test Nasal Screen MRSA (PCR) Salicylates < 1.7 L Urine Opiates Screen Ur Methadone, Qual Acetaminophen < 2 L Urine Barbiturates Ur Phencyclidine (PCP) U Amphetamin/Meth Scrn MDMA (Ecstasy) Screen U Benzodiazepines Scrn Alianza 0.8 Ur Cocaine Metabolite U Marijuana (THC) Screen Ethyl Alcohol mg/dL 08/27/18 08/28/18 08/28/18 23:13 02:05 02:05 WBC RBC Hgb Hct MCV MCH MCHC RDW Std Deviation RDW Coeff of Manohar Plt Count MPV Immature Gran % (Auto) Neut % (Auto) Lymph % (Auto) [place] % (Auto) Eos % (Auto) Baso % (Auto) Immature Gran # (Auto) Neut # (Auto) Lymph # (Auto) [place] # (Auto) Eos # (Auto) Baso # (Auto) Sodium Potassium Chloride Carbon Dioxide Anion Gap BUN Creatinine Est Cr Clr Drug Dosing Est GFR ( Amer) Est GFR (Non-Af Amer) BUN/Creatinine Ratio Glucose Calcium Total Bilirubin AST ALT Alkaline Phosphatase Total Protein Albumin Globulin Albumin/Globulin Ratio TSH Urine Color Yellow Urine Appearance Clear Urine pH 6.5 Ur Specific [place] 1.015 Urine Protein Negative Urine Glucose (UA) Negative Urine Ketones Negative Urine Blood Negative Urine Nitrite Negative Urine Bilirubin Negative Urine Urobilinogen Negative Ur Leukocyte Esterase Negative Urine Test POC Ur Test Nasal Screen MRSA (PCR) Salicylates Urine Opiates Screen Neg Ur Methadone, Qual Neg Acetaminophen Urine Barbiturates Neg Ur Phencyclidine (PCP) Neg U Amphetamin/Meth Scrn Neg MDMA (Ecstasy) Screen Neg U Benzodiazepines Scrn Neg Alianza Ur Cocaine Metabolite Neg U Marijuana (THC) Screen Neg Ethyl Alcohol mg/dL < 3.0 08/28/18 08/28/18 08/28/18 02:05 02:10 03:23 WBC RBC Hgb Hct MCV MCH MCHC RDW Std Deviation RDW Coeff of Manohar Plt Count MPV Immature Gran % (Auto) Neut % (Auto) Lymph % (Auto) [place] % (Auto) Eos % (Auto) Baso % (Auto) Immature Gran # (Auto) Neut # (Auto) Lymph # (Auto) [place] # (Auto) Eos # (Auto) Baso # (Auto) Sodium Potassium Chloride Carbon Dioxide Anion Gap BUN Creatinine Est Cr Clr Drug Dosing Est GFR ( Amer) Est GFR (Non-Af Amer) BUN/Creatinine Ratio Glucose Calcium Total Bilirubin AST ALT Alkaline Phosphatase Total Protein Albumin Globulin Albumin/Globulin Ratio TSH Urine Color Urine Appearance Urine pH Ur Specific [place] Urine Protein Urine Glucose (UA) Urine Ketones Urine Blood Urine Nitrite Urine Bilirubin Urine Urobilinogen Ur Leukocyte Esterase Urine Test Negative POC Ur Test NEG Nasal Screen MRSA (PCR) Negative Salicylates Urine Opiates Screen Ur Methadone, Qual Acetaminophen Urine Barbiturates Ur Phencyclidine (PCP) U Amphetamin/Meth Scrn MDMA (Ecstasy) Screen U Benzodiazepines Scrn Alianza Ur Cocaine Metabolite U Marijuana (THC) Screen Ethyl Alcohol mg/dL Current Inpatient Medications Current Inpatient Medications: Current Inpatient Medications Acetaminophen (Tylenol) 650 mg PO Q4H PRN PRN Reason: Headache or Minor Fever Stop: 09/27/18 05:12 Al Hydrox/Mg Hydrox/Simethicone (Maalox) 30 ml PO Q4H PRN PRN Reason: GI Upset Stop: 09/27/18 05:12 Bismuth Subsalicylate (Kaopectate) 15 ml PO PRN PRN PRN Reason: Loose Stool Stop: 09/27/18 05:12 Hydroxyzine HCl (Vistaril) 50 mg PO HSZ PRN PRN Reason: Insomnia Stop: 09/27/18 05:12 Hydroxyzine HCl (Vistaril) 25 mg PO Q4H PRN PRN Reason: Anxiety Stop: 09/27/18 05:12 Magnesium Hydroxide (Milk Of Magnesia) 30 ml PO DAILY PRN PRN Reason: Constipation Stop: 09/27/18 05:12 Sodium Chloride ([place] Nasal) 1 - 2 sprays NA PRN PRN PRN Reason: Nasal Dryness/Congestion Stop: 09/27/18 05:12 CPT Code CPT Code Initial Hospital Care: 57090
[2018-08-28] MEDS: BACLOFEN 10 MG TAB PO SCH (21:00)
[2018-08-28] MEDS: DOCUSATE SODIUM 100 MG CAP PO SCH (21:00)
[2018-08-28] MEDS: GABAPENTIN 300 MG CAP PO SCH (21:01)
[2018-08-28] MEDS: GABAPENTIN 600 MG TAB PO SCH (21:01)
[2018-08-28] MEDS: TOPIRAMATE 50 MG TAB PO SCH (21:02)
[2018-08-28] MEDS: MIRABEGRON ER 25 MG TAB PO SCH (21:02)
[2018-08-28] MEDS: cloZAPine 100 MG TAB PO SCH (21:02)
[2018-08-28] MEDS: LITHIUM CARBONATE 300 MG TAB PO SCH (21:03)
[2018-08-28] MEDS ORDERED: cloZAPine 25 MG TAB PO SCH (22:00)
[2018-08-28] MEDS ORDERED: [UNRECOGNIZED DRUG - REMARK] PO SCH (22:00)
[2018-08-28] MEDS ORDERED: cloZAPine 100 MG TAB PO SCH (22:00)
[2018-08-29] MEDS: SPIRONOLACTONE 25 MG TAB PO SCH (09:29)
[2018-08-29] MEDS: DOCUSATE SODIUM 100 MG CAP PO SCH ×2 (09:30→21:00)
[2018-08-29] MEDS: cloZAPine 100 MG TAB PO SCH ×2 (09:30→21:01)
[2018-08-29] MEDS: LACTOBACILLUS ACIDOPHILUS (FLORANEX) TAB PO SCH (09:32)
[2018-08-29] MEDS: DULOXETINE HCL 30 MG CAP PO SCH (09:32)
[2018-08-29] MEDS: FERROUS SULFATE 325 MG TAB PO SCH (09:32)
[2018-08-29] MEDS: METFORMIN HCL 500 MG TAB PO SCH ×2 (09:33→17:15)
[2018-08-29] MEDS: POTASSIUM CHLORIDE 10 MEQ TABCR PO SCH (09:33)
[2018-08-29] MEDS: LEVOTHYROXINE SODIUM 137 MCG TABLET PO SCH (09:33)
[2018-08-29] MEDS: BACLOFEN 10 MG TAB PO SCH ×2 (09:34→21:00)
[2018-08-29] MEDS: ATORVASTATIN 10 MG TAB PO SCH (09:34)
[2018-08-29] MEDS: LITHIUM CARBONATE 300 MG TAB PO SCH ×2 (09:36→21:02)
[2018-08-29] MEDS: GABAPENTIN 600 MG TAB PO SCH ×3 (09:37→21:01)
[2018-08-29] MEDS: GABAPENTIN 300 MG CAP PO SCH ×3 (09:37→21:01)
[2018-08-29] MEDS: TOPIRAMATE 50 MG TAB PO SCH ×2 (09:38→21:01)
[2018-08-29] MEDS: LISINOPRIL 10 MG TAB PO SCH (09:39)
--- NOTE | 2018-08-29 09:44 | Psychiatric Progress Note ---
Date of Service August 29, 2018 Impression / Recommendations Impression Pt reporting ongoing auditory hallucinations. She states that continue to be at the same severity as reported on day of admission. Patient is agreeable to further titration of clozapine in order to target his command hallucinations. We will increase clozapine by another 25 mg, adjusting schedule to target afternoon hallucinations: now scheduled 100mg qAM; 50mg @ 1200; 300mg qHS. Patient denies any paranoia, safety concerns, or delusional beliefs at this time. There was an incident last evening in which staff and then told the patient was on the floor in her room. No witnesses of the fall, patient reports back pain mildly worsened from chronic level, denies any head or neck pain. Patient denies losing consciousness during this event. Should continue to monitor for any concerns. Patient has a history of similar events, which previously had been reported to be unrelated to any medical condition. We will continue to observe, and workup as appropriate should the behavior be ongoing. At this time, inpatient psychiatric admission is medically necessary due to worsening command hallucinations, voices urging her to kill herself, and previous times of acting of these command by cutting her wrists. Pt is at high risk of harm to herself should she be discharge without appropriate psychiatric treatment. (1) Major depressive disorder with psychotic features: 08/28 - Increase clozapine to 100mg qAM and 325mg qHS to target auditory hallucinations - Continue lithium, Cymbalta, and Risperdal Consta - Admitted to a locked inpatient behavioral health unit, on q15 minute safety checks - Encourage medication initiation/adjustments as indicated - Encourage participation in group and recreational therapies - Gather collateral information from outpatient providers - Suggest family meeting to involve outpatient supports in safety planning - Arrange appropriate aftercare 08/29 - Titrating total daily dose of clozapine to target ongoing command h allucinations - will schedule 100mg qAM - 50mg @ 1200 - 300mg qHS - Watch for increased daytime sedation, as could consolidated afternoon dose to bedtime if necessary - Next CBC w/diff ordered for 09/03/18 - Continue other medications as prescribed - Encourage participation in group and recreational therapies (2) Hypothyroidism: 08/28 - continue home dose of levothyroxine (3) Back pain: 08/28 - continue home dose of baclofen 08/29 - Reporting increased back pain this morning - Encourage tylenol use prn (4) Migraine headache: 08/28 - continue home dose of topiramate (5) Obesity: 08/28 - continue metformin; encourage behavioral restrictions with regard to over-eating (6) Hypokalemia: 08/28 - Potassium = 2.8 in ED, given 40mEq in ED prior to admission - Continue 10mEq home dosage 08/29 - Repeat potassium this AM = 3.7 - Continue home dose of potassium chloride Risk Factors Assessment Male: No : Yes Do You Have Access To A Gun?: No Health Problems: Yes Mental Health Diagnoses: Yes Substance Use Disorders: No Previous Attempt: Yes Family History of Suicide: No Previous Psychiatric Hospitalization: Yes Hopelessness: Yes Smoker: No Protective Factors Assessment Moravian Beliefs: No : No Responsible for Young Children: No Employed: No Stable Relationships: No Supportive Family: No Interval History Identifying Information ISAÍAS BLAKE is a 33-year-old F who currently lives in [place] at a [facility]. Pt has a history of major depressive disorder with psychotic features and was discharged from [facility] 5 months ago. Pt was admitted on 08/28/18 05:13 on a 302 involuntary commitment for worsening depression and auditory hallucinations commanding patient to kill herself. 302 expires 09/02 @ 0310. Chief Complaint "I need to apologize to you, I was rude yesterday." Review of Systems Notes Constitutional: Reports occasional episode of dizziness Cardiovascular: denied Respiratory: denied Gastrointestinal: denied Neurological: Reports an episode last evening of "shaking", leading to patient feeling unsteady and falling to the floor Psychiatric: denies symptoms other than stated above Total of at least 10 systems reviewed, pertinent positives as above and in HPI. Sleep Information Total Hours of Sleep: 7.5 Sleep Comments: admitted to unit at 0543. Meal Information Percent Meal Consumed - Breakfast: 0 Percent Meal Consumed - Lunch: 75 Percent Meal Consumed - Dinner: 50 Nutrition Comment: pt. asleep Subjective Subjective Patient was seen & assessed and interval progress reviewed with Treatment Team. Staff reports an episode last evening in which they were informed by patient's roommate that she was on the floor. There were no reported witnesses to the fall, but patient explained that she had been experiencing shaking and lowered self to the floor. There is reportedly been question if these occasional episodes are somatic in nature. Patient was reportedly actively hallucinating yesterday during various meetings with staffreportedly saying "leave me alone", then denying she was talking to anyone. Patient is seen today to assess progress since admission. She began's conversation by apologizing to this provider for "rude behavior" yesterday during her initial visit. This provider reassured patient that there was no evidence taken, and apologized again for waking her from sleep. Patient states she has been feeling somewhat better,, but states auditory hallucinations have continued at the same severity since yesterday. She states at this time they are "yelling at me." She is unable to verbalize this affects of the conversations. Reviewed medication adjustments with the patient, who is agreeable to continuing titration of clozapine for the time being, to target ongoing auditory hallucinations. Patient states her hallucinations are most disturbing in the afternoons. She denies any suicidal ideation but admits that command hallucinations can be overwhelming and distracting. Patient denies any other needs or concerns today. We discussed her fall from last evening, and she states she began shaking, was unsteady on her feet, and lowered herself to the floor. Patient denies any loss of consciousness or incontinence related to this episode. She reports some mild exacerbation of chronic back pain related to the event and was reminded of as needed Tylenol. We discussed safe procedure for position changes from laying to sitting, and sitting to standing. Patient was encouraged to report any future events to staff. Physical Exam Psychiatric Orientation: alert, oriented x 3 and cooperative Apperance: appropriately dressed and appropriately groomed Eye Contact: good eye contact Motor Behavior: no abnormal motor movements (Observed while laying in bed) and + psychomotor retardation Speech: normal rate/rhythm/volume of speech Affect: + flat affect and + constricted affect Mood: + depressed mood and + anxious mood Thought Process: clear/coherent thought process Thought Content: + hopelessness; not paranoid ("always feel like people are out to harm me") and no delusions (Denies today) Suicidal Thoughts: denies suicidal thoughts Homicidal Thoughts: denies homicidal thoughts Hallucinations: + auditory hallucinations (Reports today voices are "just yelling at me."); no visual hallucinations Cognition: recent memory grossly intact, remote memory grossly intact, attention grossly intact and language grossly intact Estimated Intelligence: consistent with education level Insight: + impaired insight Judgement: + impaired judgement Vital Signs (Past 24 Hours) Last Vital Signs Temp 36.8 C 05/10/19 06:00 Pulse 101 H 08/29/18 06:00 Resp 18 08/29/18 06:00 BP 99/65 L 08/29/18 06:00 Pulse Ox 96 08/28/18 03:31 Results & Data Current Inpatient Medications Current Inpatient Medications: Current Inpatient Medications Acetaminophen (Tylenol) 650 mg PO Q4H PRN PRN Reason: Headache or Minor Fever Stop: 09/27/18 05:12 Al Hydrox/Mg Hydrox/Simethicone (Maalox) 30 ml PO Q4H PRN PRN Reason: GI Upset Stop: 09/27/18 05:12 Last Admin: 08/28/18 18:48 Dose: 30 ml Documented by: Atorvastatin Calcium (Lipitor) 10 mg PO QAM [facility] Stop: 09/28/18 08:59 Baclofen (Lioresal) 5 mg PO BID [facility] Stop: 09/27/18 20:59 Last Admin: 08/28/18 21:00 Dose: 5 mg Documented by: Bismuth Subsalicylate (Kaopectate) 15 ml PO PRN PRN PRN Reason: Loose Stool Stop: 09/27/18 05:12 Clozapine (Clozapine) 100 mg PO QAM [facility] Stop: 09/28/18 08:59 Clozapine (Clozapine) 300 mg PO HS [facility] Stop: 09/27/18 21:59 Last Admin: 08/28/18 21:02 Dose: 300 mg Documented by: Clozapine (Clozaril) 25 mg PO HS [facility] Stop: 09/27/18 21:59 Last Admin: 08/28/18 21:03 Dose: 25 mg Documented by: Docusate Sodium (Colace) 100 mg PO BID [facility] Stop: 09/27/18 20:59 Last Admin: 08/28/18 21:00 Dose: 100 mg Documented by: Duloxetine HCl (Cymbalta) 90 mg PO QAM [facility] Stop: 09/28/18 08:59 Ferrous Sulfate (Feosol) 325 mg PO QAM [facility] Stop: 09/28/18 08:59 Furosemide (Lasix) 80 mg PO BID@0800,1600 [facility] Stop: 09/27/18 15:59 Last Admin: 08/28/18 16:16 Dose: 80 mg Documented by: Gabapentin (Neurontin) 300 mg PO TID [facility] Stop: 09/27/18 20:59 Last Admin: 08/28/18 21:01 Dose: 300 mg Documented by: Gabapentin (Neurontin) 600 mg PO TID [facility] Stop: 09/27/18 20:59 Last Admin: 08/28/18 21:01 Dose: 600 mg Documented by: Hydroxyzine HCl (Vistaril) 50 mg PO HSZ PRN PRN Reason: Insomnia Stop: 09/27/18 05:12 Hydroxyzine HCl (Vistaril) 25 mg PO Q4H PRN PRN Reason: Anxiety Stop: 09/27/18 05:12 Last Admin: 08/28/18 16:12 Dose: 25 mg Documented by: Lactobacillus Acidophilus (Floranex) 4 tab PO QAM [facility] Stop: 09/28/18 08:59 [facility]ine [facility]ine [facility]: 09/28/18 08:59 Lisinopril (Zestril) 10 mg PO QAM [facility] Stop: 09/28/18 08:59 [place] Carbonate ([place] Carbonate) 450 mg PO QAM [facility] Stop: 09/28/18 08:59 [place] Carbonate ([place] Carbonate) 600 mg PO HS [facility] Stop: 09/27/18 21:59 Last Admin: 08/28/18 21:03 Dose: 600 mg Documented by: Magnesium Hydroxide (Milk Of Magnesia) 30 ml PO DAILY PRN PRN Reason: Constipation Stop: 09/27/18 05:12 Metformin HCl (Glucophage) 500 mg PO BIDM [facility] Stop: 09/27/18 17:44 Last Admin: 08/28/18 17:42 Dose: 500 mg Documented by: Mirabegron (Myrbetriq Er) 25 mg PO HS [facility] Stop: 09/27/18 21:59 Last Admin: 08/28/18 21:02 Dose: 25 mg Documented by: *Oral Contraceptive* Non-Form Patient's Own Med 1 ea PO DAILY [facility] Stop: 09/28/18 08:59 Ondansetron HCl (Zofran Odt) 8 mg PO Q8 PRN PRN Reason: Nausea Stop: 09/27/18 14:30 Last Admin: 08/28/18 16:13 Dose: 8 mg Documented by: Polyethylene Glycol (Miralax Powder Packet) 17 gm PO BID PRN PRN Reason: Constipation Potassium Chloride (Klor-Con M10) 10 meq PO QAM [facility] Stop: 09/27/18 14:59 Last Admin: 08/28/18 16:15 Dose: 10 meq Documented by: Simethicone (Mylicon) 80 mg PO QID PRN PRN Reason: GAS/BLOATING Stop: 09/27/18 14:59 Sodium Chloride ([place] Nasal) 1 - 2 sprays NA PRN PRN PRN Reason: Nasal Dryness/Congestion Stop: 09/27/18 05:12 Spironolactone (Aldactone) 25 mg PO QAM [facility] Stop: 09/28/18 08:59 Topiramate (Topamax) 50 mg PO BID [facility] Stop: 09/27/18 20:59 Last Admin: 08/28/18 21:02 Dose: 50 mg Documented by: Post Discharge Appointments Primary Care Physician Name Of Family Doctor: Dr. Stafford Therapist Name of Therapist: Trini day [facility] Product Ambassador Name of Product Ambassador: Elizabeth at [facility] CPT Code CPT Code 45979
[2018-08-29] MEDS: FUROSEMIDE 80 MG TAB PO SCH ×2 (13:08→15:57)
[2018-08-29] MEDS: cloZAPine 25 MG TAB PO SCH (13:12)
[2018-08-29] MEDS: ONDANSETRON 8MG OD TAB PO PRN (14:26)
[2018-08-29] MEDS: MIRABEGRON ER 25 MG TAB PO SCH (21:01)
[2018-08-30] MEDS: LEVOTHYROXINE SODIUM 137 MCG TABLET PO SCH (09:05)
[2018-08-30] MEDS: FUROSEMIDE 80 MG TAB PO SCH ×2 (09:05→16:07)
[2018-08-30] MEDS: SPIRONOLACTONE 25 MG TAB PO SCH (09:06)
[2018-08-30] MEDS: cloZAPine 100 MG TAB PO SCH ×2 (09:06→21:00)
[2018-08-30] MEDS: DOCUSATE SODIUM 100 MG CAP PO SCH ×2 (09:07→20:57)
[2018-08-30] MEDS: DULOXETINE HCL 30 MG CAP PO SCH (09:07)
[2018-08-30] MEDS: LACTOBACILLUS ACIDOPHILUS (FLORANEX) TAB PO SCH (09:08)
[2018-08-30] MEDS: FERROUS SULFATE 325 MG TAB PO SCH (09:08)
[2018-08-30] MEDS: METFORMIN HCL 500 MG TAB PO SCH ×2 (09:09→17:24)
[2018-08-30] MEDS: POTASSIUM CHLORIDE 10 MEQ TABCR PO SCH (09:09)
[2018-08-30] MEDS: BACLOFEN 10 MG TAB PO SCH ×2 (09:10→20:57)
[2018-08-30] MEDS: ATORVASTATIN 10 MG TAB PO SCH (09:10)
[2018-08-30] MEDS: TOPIRAMATE 50 MG TAB PO SCH ×2 (09:12→20:59)
[2018-08-30] MEDS: GABAPENTIN 600 MG TAB PO SCH ×3 (09:12→20:59)
[2018-08-30] MEDS: GABAPENTIN 300 MG CAP PO SCH ×3 (09:13→20:59)
[2018-08-30] MEDS: LISINOPRIL 10 MG TAB PO SCH ×2 (09:18→12:42)
[2018-08-30] MEDS: LITHIUM CARBONATE 300 MG TAB PO SCH ×2 (09:52→21:00)
[2018-08-30] MEDS: cloZAPine 25 MG TAB PO SCH (12:25)
[2018-08-30] MEDS: ONDANSETRON 8MG OD TAB PO PRN (13:21)
--- NOTE | 2018-08-30 13:51 | Psychiatric Progress Note ---
Date of Service August 30, 2018 Impression / Recommendations Impression Pt reporting ongoing auditory hallucinations. She states that continue to be at the same severity as reported on day of admission. Patient is agreeable to further titration of clozapine in order to target his command hallucinations. We will increase clozapine by another 25 mg, adjusting schedule to target afternoon hallucinations: now scheduled 100mg qAM; 50mg @ 1200; 300mg qHS. Patient denies any paranoia, safety concerns, or delusional beliefs at this time. There was an incident last evening in which staff and then told the patient was on the floor in her room. No witnesses of the fall, patient reports back pain mildly worsened from chronic level, denies any head or neck pain. Patient denies losing consciousness during this event. Should continue to monitor for any concerns. Patient has a history of similar events, which previously had been reported to be unrelated to any medical condition. We will continue to observe, and workup as appropriate should the behavior be ongoing. At this time, inpatient psychiatric admission is medically necessary due to bein process of stablizing her command hallucinations that were with voices urging her to kill herself, and previous times of acting of these command by cutting her wrists. As AH is chronic aim is to mitigate risk by lessening AH and having time without command to harm and building upon safety plan. Clozaril dose increased to help alleviate AH process and related risks. (1) Major depressive disorder with psychotic features: 08/28 - Increase clozapine to 100mg qAM and 325mg qHS to target auditory hallucinations - Continue lithium, Cymbalta, and Risperdal Consta - Admitted to a locked inpatient behavioral health unit, on q15 minute safety checks - Encourage medication initiation/adjustments as indicated - Encourage participation in group and recreational therapies - Gather collateral information from outpatient providers - Suggest family meeting to involve outpatient supports in safety planning - Arrange appropriate aftercare 08/29 - Titrating total daily dose of clozapine to target ongoing command hallucinations - will schedule 100mg qAM - 50mg @ 1200 - 300mg qHS - Watch for increased daytime sedation, as could consolidated afternoon dose to bedtime if necessary - Next CBC w/diff ordered for 09/03/18 - Continue other medications as prescribed - Encourage participation in group and recreational therapies 08/30 -maintained meds unchanged today, watching for daytime sedation with plan to consolidate afternoon dose to bedtime if necessary. -addressing chronic AH and how pt addresses this symptom with aim to help alleviate risk of harm, assessing for command nature of AH as well, pt on 302 and if reasonable and appropriate stabilization continues is likely to be appropriate for discharge before 302 expires. (2) Hypothyroidism: 08/28 - continue home dose of levothyroxine (3) Back pain: 08/28 - continue home dose of baclofen 08/29 - Reporting increased back pain this morning - Encourage tylenol use prn (4) Migraine headache: 08/28 - continue home dose of topiramate (5) Obesity: 08/28 - continue metformin; encourage behavioral restrictions with regard to over-eating (6) Hypokalemia: 08/28 - Potassium = 2.8 in ED, given 40mEq in ED prior to admission - Continue 10mEq home dosage 08/29 - Repeat potassium this AM = 3.7 - Continue home dose of potassium chloride Risk Factors Assessment Male: No : Yes Do You Have Access To A Gun?: No Health Problems: Yes Mental Health Diagnoses: Yes Substance Use Disorders: No Previous Attempt: Yes Family History of Suicide: No Previous Psychiatric Hospitalization: Yes Hopelessness: Yes Smoker: No Protective Factors Assessment Sikh Beliefs: No : No Responsible for Young Children: No Employed: No Stable Relationships: No Supportive Family: No Interval History Identifying Information ISAÍAS BLAKE is a 33-year-old F who currently lives in [place] at a [facility]. Pt has a history of major depressive disorder with psychotic features and was discharged from [facility] 5 months ago. Pt was admitted on 08/28/18 05:13 on a 302 involuntary commitment for worsening depression and auditory hallucinations commanding patient to kill herself. 302 expires 09/02 @ 0310. Chief Complaint "the voices are no longer telling met to kill myself". Review of Systems Sleep Information Total Hours of Sleep: 7.5 Sleep Comments: pt awoke x1 incontinent of urine. Cleaned bed sheet and covers changed. pt snacked while waiting for bed to be changed. pt on q-15 minute checks Meal Information Percent Meal Consumed - Breakfast: 100 Percent Meal Consumed - Lunch: 90 Percent Meal Consumed - Dinner: 75 Nutrition Comment: Pt c/o feeling nauseated Subjective Subjective Patient was seen & assessed and interval progress reviewed with nursing. Pt enodrsed having chronic AH that had started having comments for her to kill herslef leading to her admission. She rperots have lessend some and no longer telling her to kil lherself. She denied any actual suicidal ideation or intent or plan. IN midst of assesment she once verbalized "stop it" and indicated telling the to stop, she endorsed that told her that she niels ot have opiate pain med and that she was not wnating such a med . This ws in reference to press writer inquiring about her chronic back pain. She shared how she talks back to the at times to help contain it. She reprots that her depressed mood is chronic and that she is aiming for discharge on MOdnay and fels she will be feling better as she gets to spend time with her friends at her [facility]. She feels she will be safe at discharge despite having AH. She is comofrtable wiht her medications as they are with clozaril now 100mg am an 50mg noon and 300mg hs. She denied s/e to medication adjustment. She endorsed chronic back pain, similar to how tends to have. denied EPS Physical Exam Psychiatric Orientation: alert, oriented x 3 and cooperative Apperance: appropriately dressed and appropriately groomed Eye Contact: + fair eye contact Motor Behavior: no abnormal motor movements (Observed while laying in bed) Speech: normal rate/rhythm/volume of speech Affect: + constricted affect Mood: + depressed mood Thought Process: clear/coherent thought process Thought Content: not paranoid ("always feel like people are out to harm me") and no delusions (Denies today) Suicidal Thoughts: denies suicidal thoughts Homicidal Thoughts: denies homicidal thoughts Hallucinations: + auditory hallucinations (today voices are "yelling at her" with comments-denied commands to harm ); no visual hallucinations Cognition: recent memory grossly intact, remote memory grossly intact, attention grossly intact and language grossly intact Estimated Intelligence: consistent with education level Insight: + fair insight Judgement: + fair judgement Vital Signs (Past 24 Hours) Last Vital Signs Temp 36.7 C 08/30/18 06:51 Pulse 125 H 08/30/18 12:37 Resp 20 08/30/18 12:37 BP 130/91 08/30/18 12:37 Pulse Ox 96 08/28/18 03:31 Results & Data Current Inpatient Medications Current Inpatient Medications: Current Inpatient Medications Acetaminophen (Tylenol) 650 mg PO Q4H PRN PRN Reason: Headache or Minor Fever Stop: 09/27/18 05:12 Al Hydrox/Mg Hydrox/Simethicone (Maalox) 30 ml PO Q4H PRN PRN Reason: GI Upset Stop: 09/27/18 05:12 Last Admin: 08/28/18 18:48 Dose: 30 ml Documented by: Atorvastatin Calcium (Lipitor) 10 mg PO QAM [facility] Stop: 09/28/18 08:59 Last Admin: 08/30/18 09:10 Dose: 10 mg Documented by: Baclofen (Lioresal) 5 mg PO BID [facility] Stop: 09/27/18 20:59 Last Admin: 08/30/18 09:10 Dose: 5 mg Documented by: Bismuth Subsalicylate (Kaopectate) 15 ml PO PRN PRN PRN Reason: Loose Stool Stop: 09/27/18 05:12 Clozapine (Clozapine) 100 mg PO QAM [facility] Stop: 09/28/18 08:59 Last Admin: 08/30/18 09:06 Dose: 100 mg Documented by: Clozapine (Clozapine) 300 mg PO HS [facility] Stop: 09/27/18 21:59 Last Admin: 08/29/18 21:01 Dose: 300 mg Documented by: Clozapine (Clozaril) 50 mg PO 1200 [facility] Stop: 09/28/18 11:59 Last Admin: 08/30/18 12:25 Dose: 50 mg Documented by: Docusate Sodium (Colace) 100 mg PO BID [facility] Stop: 09/27/18 20:59 Last Admin: 08/30/18 09:07 Dose: 100 mg Documented by: Duloxetine HCl (Cymbalta) 90 mg PO QAM [facility] Stop: 09/28/18 08:59 Last Admin: 08/30/18 09:07 Dose: 90 mg Documented by: Ferrous Sulfate (Feosol) 325 mg PO QAM [facility] Stop: 09/28/18 08:59 Last Admin: 08/30/18 09:08 Dose: 325 mg Documented by: Furosemide (Lasix) 80 mg PO BID@0800,1600 [facility] Stop: 09/27/18 15:59 Last Admin: 08/30/18 09:05 Dose: 80 mg Documented by: Gabapentin (Neurontin) 300 mg PO TID [facility] Stop: 09/27/18 20:59 Last Admin: 08/30/18 09:13 Dose: 300 mg Documented by: Gabapentin (Neurontin) 600 mg PO TID [facility] Stop: 09/27/18 20:59 Last Admin: 08/30/18 09:12 Dose: 600 mg Documented by: Hydroxyzine HCl (Vistaril) 50 mg PO HSZ PRN PRN Reason: Insomnia Stop: 09/27/18 05:12 Hydroxyzine HCl (Vistaril) 25 mg PO Q4H PRN PRN Reason: Anxiety Stop: 09/27/18 05:12 Last Admin: 08/28/18 16:12 Dose: 25 mg Documented by: Lactobacillus Acidophilus (Floranex) 4 tab PO QAM [facility] Stop: 09/28/18 08:59 Last Admin: 08/30/18 09:08 Dose: 4 tab Documented by: Levothyroxine Sodium (Levothyroxine Sodium) 137 mcg PO DAILYBB [facility] Stop: 09/28/18 08:59 Last Admin: 08/30/18 09:05 Dose: 137 mcg Documented by: Lisinopril (Zestril) 10 mg PO QAM [facility] Stop: 09/28/18 08:59 Last Admin: 08/30/18 12:42 Dose: 10 mg Documented by: Kihei Carbonate (Kihei Carbonate) 450 mg PO QAM [facility] Stop: 09/28/18 08:59 Last Admin: 08/30/18 09:52 Dose: 450 mg Documented by: Kihei Carbonate (Kihei Carbonate) 600 mg PO [facility] Stop: 09/27/18 21:59 Last Admin: 08/29/18 21:02 Dose: 600 mg Documented by: Magnesium Hydroxide (Milk Of Magnesia) 30 ml PO DAILY PRN PRN Reason: Constipation Stop: 09/27/18 05:12 Metformin HCl (Glucophage) 500 mg PO BIDM [facility] Stop: 09/27/18 17:44 Last Admin: 08/30/18 09:09 Dose: 500 mg Documented by: Mirabegron (Myrbetriq Er) 25 mg PO [facility] Stop: 09/27/18 21:59 Last Admin: 08/29/18 21:01 Dose: 25 mg Documented by: *Oral Contraceptive* Non-Form Patient's Own Med 1 ea PO DAILY [facility] Stop: 09/28/18 08:59 Last Admin: 08/30/18 09:13 Dose: 1 ea Documented by: Ondansetron HCl (Zofran Odt) 8 mg PO Q8 PRN PRN Reason: Nausea Stop: 09/27/18 14:30 Last Admin: 08/30/18 13:21 Dose: 8 mg Documented by: Polyethylene Glycol (Miralax Powder Packet) 17 gm PO BID PRN PRN Reason: Constipation Potassium Chloride (Klor-Con M10) 10 meq PO QAM [facility] Stop: 09/27/18 14:59 Last Admin: 08/30/18 09:09 Dose: 10 meq Documented by: Simethicone (Mylicon) 80 mg PO QID PRN PRN Reason: GAS/BLOATING Stop: 09/27/18 14:59 Sodium Chloride ([place] Nasal) 1 - 2 sprays NA PRN PRN PRN Reason: Nasal Dryness/Congestion Stop: 09/27/18 05:12 Spironolactone (Aldactone) 25 mg PO QAM [facility] Stop: 09/28/18 08:59 Last Admin: 08/30/18 09:06 Dose: 25 mg Documented by: Topiramate (Topamax) 50 mg PO BID [facility] Stop: 09/27/18 20:59 Last Admin: 08/30/18 09:12 Dose: 50 mg Documented by: Post Discharge Appointments Primary Care Physician Name Of Family Doctor: Dr. Stafford Psychiatrist Name of Psychiatrist: Dr. Hoffman Psychiatrist's Therapist Name of Therapist: Trini day [facility] Psychiatry Therapist's Food Safety Director Name of Food Safety Director: Elizabeth day [facility] Phone Number for Food Safety Director: [phone] Contact Information Discharge Discharge Address: [address] [place] [address] CPT Code CPT Code 54393
[2018-08-30] MEDS: ALUMINUM/MAGNESIUM SUSP 30 ML UDC PO PRN (16:10)
[2018-08-30] MEDS: MIRABEGRON ER 25 MG TAB PO SCH (21:00)
[2018-08-31] MEDS: FUROSEMIDE 80 MG TAB PO SCH ×2 (09:19→16:29)
[2018-08-31] MEDS: SPIRONOLACTONE 25 MG TAB PO SCH (09:20)
[2018-08-31] MEDS: LEVOTHYROXINE SODIUM 137 MCG TABLET PO SCH (09:20)
[2018-08-31] MEDS: DULOXETINE HCL 30 MG CAP PO SCH (09:21)
[2018-08-31] MEDS: FERROUS SULFATE 325 MG TAB PO SCH (09:21)
[2018-08-31] MEDS: LACTOBACILLUS ACIDOPHILUS (FLORANEX) TAB PO SCH (09:21)
[2018-08-31] MEDS: cloZAPine 100 MG TAB PO SCH ×2 (09:21→21:01)
[2018-08-31] MEDS: DOCUSATE SODIUM 100 MG CAP PO SCH ×2 (09:21→21:00)
[2018-08-31] MEDS: ATORVASTATIN 10 MG TAB PO SCH (09:22)
[2018-08-31] MEDS: BACLOFEN 10 MG TAB PO SCH ×2 (09:22→21:00)
[2018-08-31] MEDS: POTASSIUM CHLORIDE 10 MEQ TABCR PO SCH (09:22)
[2018-08-31] MEDS: METFORMIN HCL 500 MG TAB PO SCH ×2 (09:22→17:20)
[2018-08-31] MEDS: LISINOPRIL 10 MG TAB PO SCH (09:23)
[2018-08-31] MEDS: GABAPENTIN 600 MG TAB PO SCH ×3 (09:23→21:01)
[2018-08-31] MEDS: GABAPENTIN 300 MG CAP PO SCH ×3 (09:23→21:01)
[2018-08-31] MEDS: LITHIUM CARBONATE 300 MG TAB PO SCH ×2 (09:23→21:01)
[2018-08-31] MEDS: TOPIRAMATE 50 MG TAB PO SCH ×2 (09:23→21:01)
[2018-08-31] MEDS: cloZAPine 25 MG TAB PO SCH (12:38)
--- NOTE | 2018-08-31 14:30 | Psychiatric Progress Note ---
Date of Service August 31, 2018 Impression / Recommendations Impression Pt reporting ongoing auditory hallucinations. She states that continue to be at the same severity as reported on day of admission. Patient is agreeable to further titration of clozapine in order to target his command hallucinations. We will increase clozapine by another 25 mg, adjusting schedule to target afternoon hallucinations: now scheduled 100mg qAM; 50mg @ 1200; 300mg qHS. Patient denies any paranoia, safety concerns, or delusional beliefs at this time. There was an incident last evening in which staff and then told the patient was on the floor in her room. No witnesses of the fall, patient reports back pain mildly worsened from chronic level, denies any head or neck pain. Patient denies losing consciousness during this event. Should continue to monitor for any concerns. Patient has a history of similar events, which previously had been reported to be unrelated to any medical condition. We will continue to observe, and workup as appropriate should the behavior be ongoing. At this time, inpatient psychiatric admission is medically necessary due to bein process of stablizing her command hallucinations that were with voices urging her to kill herself, and previous times of acting of these command by cutting her wrists. As AH is chronic aim is to mitigate risk by lessening AH and having time without command to harm and building upon safety plan. Clozaril dose increased to help alleviate AH process and related risks. abd pain present this morning (08/31) (1) Major depressive disorder with psychotic features: 08/28 - Increase clozapine to 100mg qAM and 325mg qHS to target auditory hallucinations - Continue lithium, Cymbalta, and Risperdal Consta - Admitted to a locked inpatient behavioral health unit, on q15 minute safety checks - Encourage medication initiation/adjustments as indicated - Encourage participation in group and recreational therapies - Gather collateral information from outpatient providers - Suggest family meeting to involve outpatient supports in safety planning - Arrange appropriate aftercare 08/29 - Titrating total daily dose of clozapine to target ongoing command hallucinations - will schedule 100mg qAM - 50mg @ 1200 - 300mg qHS - Watch for increased daytime sedation, as could consolidated afternoon dose to bedtime if necessary - Next CBC w/diff ordered for 09/03/18 - Continue other medications as prescribed - Encourage participation in group and recreational therapies 08/30 -maintained meds unchanged today, watching for daytime sedation with plan to consolidate afternoon dose to bedtime if necessary. -addressing chronic AH and how pt addresses this symptom with aim to help alleviate risk of harm, assessing for command nature of AH as well, pt on 302 and if reasonable and appropriate stabilization continues is likely to be appropriate for discharge before 302 expires. 08/31 maintained treatment unchanged (2) Hypothyroidism: 08/28 - continue home dose of levothyroxine (3) Back pain: 08/28 - continue home dose of baclofen 08/29 - Reporting increased back pain this morning - Encourage tylenol use prn (4) Migraine headache: 08/28 - continue home dose of topiramate (5) Obesity: 08/28 - continue metformin; encourage behavioral restrictions with regard to over-eating (6) Hypokalemia: 08/28 - Potassium = 2.8 in ED, given 40mEq in ED prior to admission - Continue 10mEq home dosage 08/29 - Repeat potassium this AM = 3.7 - Continue home dose of potassium chloride Risk Factors Assessment Male: No : Yes Do You Have Access To A Gun?: No Health Problems: Yes Mental Health Diagnoses: Yes Substance Use Disorders: No Previous Attempt: Yes Family History of Suicide: No Previous Psychiatric Hospitalization: Yes Hopelessness: Yes Smoker: No Protective Factors Assessment Amish Beliefs: No : No Responsible for Young Children: No Employed: No Stable Relationships: No Supportive Family: No Interval History Identifying Information ISAÍAS BLAKE is a 33-year-old F who currently lives in [place] at a [facility]. Pt has a history of major depressive disorder with psychotic features and was discharged from [facility] 5 months ago. Pt was admitted on 08/28/18 05:13 on a 302 involuntary commitment for worsening depression and auditory hallucinations commanding patient to kill herself. 302 expires 09/02 @ 0310. Chief Complaint "do not feel good this morning - stomach pain". Review of Systems Sleep Information Total Hours of Sleep: 8.25 Sleep Comments: pt on q-15 minute checks Meal Information Percent Meal Consumed - Breakfast: 40 Percent Meal Consumed - Lunch: 50 Percent Meal Consumed - Dinner: 70 Nutrition Comment: Pt c/o feeling nauseated Subjective Subjective Patient was seen & assessed and interval progress reviewed with nursing. Pt seen in her room as she did not want to get up and go to technical writer's office. She was laying down on her bed during assessment. She indicated abd pain that started last night and remained present this morning was adding to her not feel well. She continues to feel depressed and have Si However SI does not include command AH to kill or hurt herself. She indicated AH tell her she should go home. In midst of interview she indicated that the AH told her she is a pedophile, which she states is not true. She is seeking discharge tomorrow. She feels her outpt psychiatrist is rahter helpful in addressing her psychiatric concerns. She denied SI or HI. She feels her mood has not improved and endorses being chronically depressed. Physical Exam Psychiatric Orientation: alert, oriented x 3 and cooperative Apperance: appropriately dressed and appropriately groomed Eye Contact: + fair eye contact Motor Behavior: no abnormal motor movements (Observed while laying in bed) and + psychomotor retardation Speech: normal rate/rhythm/volume of speech Affect: + depressed affect Mood: + depressed mood Thought Process: clear/coherent thought process Thought Content: not paranoid ("always feel like people are out to harm me") and no delusions (Denies today) Suicidal Thoughts: denies suicidal thoughts Homicidal Thoughts: denies homicidal thoughts Hallucinations: + auditory hallucinations (today voices are "yelling at her" with comments-denied commands to harm ); no visual hallucinations Cognition: recent memory grossly intact, remote memory grossly intact, attention grossly intact and language grossly intact Estimated Intelligence: consistent with education level Insight: + fair insight Judgement: + fair judgement Vital Signs (Past 24 Hours) Last Vital Signs Temp 37.2 C 08/31/18 06:43 Pulse 87 08/31/18 06:43 Resp 18 08/31/18 06:43 BP 134/74 08/31/18 06:43 Pulse Ox 96 08/28/18 03:31 Results & Data Current Inpatient Medications Current Inpatient Medications: Current Inpatient Medications Acetaminophen (Tylenol) 650 mg PO Q4H PRN PRN Reason: Headache or Minor Fever Stop: 09/27/18 05:12 Al Hydrox/Mg Hydrox/Simethicone (Maalox) 30 ml PO Q4H PRN PRN Reason: GI Upset Stop: 09/27/18 05:12 Last Admin: 08/30/18 16:10 Dose: 30 ml Documented by: Atorvastatin Calcium (Lipitor) 10 mg PO QAM [facility] Stop: 09/28/18 08:59 Last Admin: 08/31/18 09:22 Dose: 10 mg Documented by: Baclofen (Lioresal) 5 mg PO BID [facility] Stop: 09/27/18 20:59 Last Admin: 08/31/18 09:22 Dose: 5 mg Documented by: Bismuth Subsalicylate (Kaopectate) 15 ml PO PRN PRN PRN Reason: Loose Stool Stop: 09/27/18 05:12 Clozapine (Clozapine) 100 mg PO QAM [facility] Stop: 09/28/18 08:59 Last Admin: 08/31/18 09:21 Dose: 100 mg Documented by: Clozapine (Clozapine) 300 mg PO HS [facility] Stop: 09/27/18 21:59 Last Admin: 08/30/18 21:00 Dose: 300 mg Documented by: Clozapine (Clozaril) 50 mg PO 1200 [facility] Stop: 09/28/18 11:59 Last Admin: 08/31/18 12:38 Dose: 50 mg Documented by: Docusate Sodium (Colace) 100 mg PO BID [facility] Stop: 09/27/18 20:59 Last Admin: 08/31/18 09:21 Dose: 100 mg Documented by: Duloxetine HCl (Cymbalta) 90 mg PO QAM [facility] Stop: 09/28/18 08:59 Last Admin: 08/31/18 09:21 Dose: 90 mg Documented by: Ferrous Sulfate (Feosol) 325 mg PO QAM [facility] Stop: 09/28/18 08:59 Last Admin: 08/31/18 09:21 Dose: 325 mg Documented by: Furosemide (Lasix) 80 mg PO BID@0800,1600 [facility] Stop: 09/27/18 15:59 Last Admin: 08/31/18 09:19 Dose: 80 mg Documented by: Gabapentin (Neurontin) 300 mg PO TID [facility] Stop: 09/27/18 20:59 Last Admin: 08/31/18 09:23 Dose: 300 mg Documented by: Gabapentin (Neurontin) 600 mg PO TID [facility] Stop: 09/27/18 20:59 Last Admin: 08/31/18 09:23 Dose: 600 mg Documented by: Hydroxyzine HCl (Vistaril) 50 mg PO HSZ PRN PRN Reason: Insomnia Stop: 09/27/18 05:12 Hydroxyzine HCl (Vistaril) 25 mg PO Q4H PRN PRN Reason: Anxiety Stop: 09/27/18 05:12 Last Admin: 08/28/18 16:12 Dose: 25 mg Documented by: Lactobacillus Acidophilus (Floranex) [facility] Stop: 09/28/18 08:59 Last Admin: 08/31/18 09:21 Dose: 4 tab Documented by: Levothyroxine Sodium (Levothyroxine Sodium) [facility] Stop: 09/28/18 08:59 Last Admin: 08/31/18 09:20 Dose: 137 mcg Documented by: Lisinopril (Zestril) 10 mg PO [facility] Stop: 09/28/18 08:59 Last Admin: 08/31/18 09:23 Dose: 10 mg Documented by: [place] Carbonate ([place] Carbonate) 450 mg PO [facility] Stop: 09/28/18 08:59 Last Admin: 08/31/18 09:23 Dose: 450 mg Documented by: [place] Carbonate ([place] Carbonate) 600 mg PO [facility] Stop: 09/27/18 21:59 Last Admin: 08/30/18 21:00 Dose: 600 mg Documented by: Magnesium Hydroxide (Milk Of Magnesia) 30 ml PO DAILY PRN PRN Reason: Constipation Stop: 09/27/18 05:12 Metformin HCl (Glucophage) 500 mg PO BIDM [facility] Stop: 09/27/18 17:44 Last Admin: 08/31/18 09:22 Dose: 500 mg Documented by: Mirabegron (Myrbetriq Er) 25 mg PO [facility] Stop: 09/27/18 21:59 Last Admin: 08/30/18 21:00 Dose: 25 mg Documented by: *Oral Contraceptive* Non-Form Patient's Own Med 1 ea PO DAILY [facility] Stop: 09/28/18 08:59 Last Admin: 08/31/18 09:24 Dose: 1 ea Documented by: Ondansetron HCl (Zofran Odt) 8 mg PO Q8 PRN PRN Reason: Nausea Stop: 09/27/18 14:30 Last Admin: 08/30/18 13:21 Dose: 8 mg Documented by: Polyethylene Glycol (Miralax Powder Packet) 17 gm PO BID PRN PRN Reason: Constipation Potassium Chloride (Klor-Con M10) 10 meq PO [facility] Stop: 09/27/18 14:59 Last Admin: 08/31/18 09:22 Dose: 10 meq Documented by: Simethicone (Mylicon) 80 mg PO QID PRN PRN Reason: GAS/BLOATING Stop: 09/27/18 14:59 Sodium Chloride ([place] Nasal) 1 - 2 sprays NA PRN PRN PRN Reason: Nasal Dryness/Congestion Stop: 09/27/18 05:12 Spironolactone (Aldactone) 25 mg PO QAM [facility] Stop: 09/28/18 08:59 Last Admin: 08/31/18 09:20 Dose: 25 mg Documented by: Topiramate (Topamax) 50 mg PO BID [facility] Stop: 09/27/18 20:59 Last Admin: 08/31/18 09:23 Dose: 50 mg Documented by: Post Discharge Appointments Primary Care Physician Name Of Family Doctor: Perez Stafford Primary Care Provider Appointment Comment: [address] [place] [address] Psychiatrist Name of Psychiatrist: Dr. Hoffman Psychiatrist's Psychiatric Appointment Comment: [address], [address], [place] [address] Therapist Name of Therapist: Trini day [facility] Therapist's Therapy Appointment Comment: [address], [address], [place] [address] Vegetable Grower Name of Vegetable Grower: Elizabeth day [facility] Phone Number for Vegetable Grower: [phone] Contact Information Discharge Discharge Address: [address] [place] [id number] CPT Code CPT Code 79865
[2018-08-31] MEDS: ALUMINUM/MAGNESIUM SUSP 30 ML UDC PO PRN (18:01)
[2018-08-31] MEDS: MIRABEGRON ER 25 MG TAB PO SCH (21:01)
--- NOTE | 2018-09-01 09:58 | Psychiatric Progress Note ---
Date of Service September 01, 2018 Impression / Recommendations Impression Command auditory hallucinations continue, are constant, and tell her to end her life. They cause distress, and she does not feel safe outside of the hospital. Clozapine has been titrated, and we are encouraging her to work on behavioral techniques for managing distress related to her hallucinations. She is reporting epigastric pain today, with chronic constipation. Inpatient treatment remains indicated due to the severity of her symptoms and risk for self injury if discharged prematurely. (1) Major depressive disorder with psychotic features: 08/28 - Increase clozapine to 100mg qAM and 325mg qHS to target auditory hallucinations - Continue lithium, Cymbalta, and Risperdal Consta - Admitted to a locked inpatient behavioral health unit, on q15 minute safety checks - Encourage medication initiation/adjustments as indicated - Encourage participation in group and recreational therapies - Gather collateral information from outpatient providers - Suggest family meeting to involve outpatient supports in safety planning - Arrange appropriate aftercare 08/29 - Titrating total daily dose of clozapine to target ongoing command hallucinations - will schedule 100mg qAM - 50mg @ 1200 - 300mg qHS - Watch for increased daytime sedation, as could consolidated afternoon dose to bedtime if necessary - Next CBC w/diff ordered for 09/03/18 - Continue other medications as prescribed - Encourage participation in group and recreational therapies 08/30 -maintained meds unchanged today, watching for daytime sedation with plan to consolidate afternoon dose to bedtime if necessary. -addressing chronic AH and how pt addresses this symptom with aim to help alleviate risk of harm, assessing for command nature of AH as well, pt on 302 and if reasonable and appropriate stabilization continues is likely to be appropriate for discharge before 302 expires. 08/31 - maintained treatment unchanged 09/01 -auditory hallucinations are ongoing, reluctant to further increase medications due to overeating/obesity, but may need to consider further titration of clozapine given severity of psychotic symptoms. Encourage group attendance and participation and coping skills to manage auditory hallucinations. (2) Hypothyroidism: 08/28 - continue home dose of levothyroxine (3) Back pain: 08/28 - continue home dose of baclofen 08/29 - Reporting increased back pain this morning - Encourage tylenol use prn (4) Migraine headache: 08/28 - continue home dose of topiramate (5) Obesity: 08/28 - continue metformin; encourage behavioral restrictions with regard to over-eating (6) Hypokalemia: 08/28 - Potassium = 2.8 in ED, given 40mEq in ED prior to admission - Continue 10mEq home dosage 08/29 - Repeat potassium this AM = 3.7 - Continue home dose of potassium chloride (7) Constipation: 09/01 -continue home dose of docusate, and MiraLAX as needed. Encourage her to drink water, rather than sweetened beverages, and to be out of bed and physically active. Present on Admission?: Yes Risk Factors Assessment Male: No : Yes Do You Have Access To A Gun?: No Health Problems: Yes Mental Health Diagnoses: Yes Substance Use Disorders: No Previous Attempt: Yes Family History of Suicide: No Previous Psychiatric Hospitalization: Yes Hopelessness: Yes Smoker: No Protective Factors Assessment Hoahaoism Beliefs: No : No Responsible for Young Children: No Employed: No Stable Relationships: No Supportive Family: No Interval History Identifying Information ISAÍAS BLAKE is a 33-year-old F who currently lives in [place] at a R. Pt has a history of major depressive disorder with psychotic features and was discharged from [facility] 5 months ago. Pt was admitted on 08/28/18 05:13 on a 302 involuntary commitment for worsening depression and auditory hallucinations commanding patient to kill herself. 302 expires 09/02 @ 0310. Chief Complaint "Stressful". Review of Systems Sleep Information Total Hours of Sleep: 5.75 Sleep Comments: pt on q-15 minute checks Meal Information Percent Meal Consumed - Breakfast: 40 Percent Meal Consumed - Lunch: 50 Percent Meal Consumed - Dinner: 75 Nutrition Comment: Pt c/o feeling nauseated Subjective Subjective Staff reportPatient was seen & assessed and interval progress reviewed with Treatment Team. Staff report the patient requested one-to-one with staff last evening, reporting she was fearful that something bad was going to happen to her family and that they were in danger. She also endorsed auditory hallucinations of voices, making derogatory comments about her and telling her she is going to [facility]. On my assessment today, she reports feeling distressed due to constant auditory hallucinations of voices telling her to kill herself. She says the voices are "24/7, only time they go away is when I go to sleep." She states they have not changed since admission, and cause significant distress. She is trying to work on ways to cope, such as playing the marinanowi or talking to other people, but feels overwhelmed and unable to cope. She denies problems with sleep and appetite, and denies side effects to medications. She reports epigastric pain which started overnight, stabbing pain underneath her right breast, and denies injury, nausea, vomiting, radiation, and pain elsewhere. She got up to eat breakfast but then returned to bed, and thinks her last bowel movement was a couple of days ago. Physical Exam Psychiatric Orientation: alert and cooperative Apperance: + disheveled Obese, lying in bed in no acute distress, eyes closed. Motor Behavior: no abnormal motor movements Nonspontaneous, minimal, monotone. Affect: + blunted affect Mood: + depressed mood and + anxious mood Thought Process: goal directed thought process Thought Content: + delusions and + persecution Suicidal Thoughts: + reports suicidal thoughts In response to command auditory hallucinations to kill herself. Homicidal Thoughts: denies homicidal thoughts Hallucinations: + auditory hallucinations; no visual hallucinations Cognition: recent memory grossly intact, attention grossly intact and language grossly intact Estimated Intelligence: average estimated intelligence Insight: + impaired insight Judgement: + impaired judgement Vital Signs (Past 24 Hours) Last Vital Signs Temp 36.8 C 09/01/18 06:59 Pulse 110 H 09/01/18 06:59 Resp 20 09/01/18 06:59 BP 86/53 L 09/01/18 06:59 Pulse Ox 96 08/28/18 03:31 Results & Data Current Inpatient Medications Current Inpatient Medications: Current Inpatient Medications Acetaminophen (Tylenol) 650 mg PO Q4H PRN PRN Reason: Headache or Minor Fever Stop: 09/27/18 05:12 Al Hydrox/Mg Hydrox/Simethicone (Maalox) 30 ml PO Q4H PRN PRN Reason: GI Upset Stop: 09/27/18 05:12 Last Admin: 08/31/18 18:01 Dose: 30 ml Documented by: Atorvastatin Calcium (Lipitor) 10 mg PO QAM [facility] Stop: 09/28/18 08:59 Last Admin: 08/31/18 09:22 Dose: 10 mg Documented by: Baclofen (Lioresal) 5 mg PO BID [facility] Stop: 09/27/18 20:59 Last Admin: 08/31/18 21:00 Dose: 5 mg Documented by: Bismuth Subsalicylate (Kaopectate) 15 ml PO PRN PRN PRN Reason: Loose Stool Stop: 09/27/18 05:12 Clozapine (Clozapine) 100 mg PO QAM [facility] Stop: 09/28/18 08:59 Last Admin: 08/31/18 09:21 Dose: 100 mg Documented by: Clozapine (Clozapine) 300 mg PO HS [facility] Stop: 09/27/18 21:59 Last Admin: 08/31/18 21:01 Dose: 300 mg Documented by: Clozapine (Clozaril) 50 mg PO 1200 [facility] Stop: 09/28/18 11:59 Last Admin: 08/31/18 12:38 Dose: 50 mg Documented by: Docusate Sodium (Colace) 100 mg PO BID [facility] Stop: 09/27/18 20:59 Last Admin: 08/31/18 21:00 Dose: 100 mg Documented by: Duloxetine HCl (Cymbalta) 90 mg PO QAM [facility] Stop: 09/28/18 08:59 Last Admin: 08/31/18 09:21 Dose: 90 mg Documented by: Ferrous Sulfate (Feosol) 325 mg PO QAM [facility] Stop: 09/28/18 08:59 Last Admin: 08/31/18 09:21 Dose: 325 mg Documented by: Furosemide (Lasix) 80 mg PO BID@0800,1600 [facility] Stop: 09/27/18 15:59 Last Admin: 08/31/18 16:29 Dose: 80 mg Documented by: Gabapentin (Neurontin) 300 mg PO TID [facility] Stop: 09/27/18 20:59 Last Admin: 08/31/18 21:01 Dose: 300 mg Documented by: Gabapentin (Neurontin) 600 mg PO TID [facility] Stop: 09/27/18 20:59 Last Admin: 08/31/18 21:01 Dose: 600 mg Documented by: Hydroxyzine HCl (Vistaril) 50 mg PO HSZ PRN PRN Reason: Insomnia Stop: 09/27/18 05:12 Hydroxyzine HCl (Vistaril) 25 mg PO Q4H PRN PRN Reason: Anxiety Stop: 09/27/18 05:12 Last Admin: 08/31/18 19:43 Dose: 25 mg Documented by: Lactobacillus Acidophilus (Floranex) 4 tab PO QAM [facility] Stop: 09/28/18 08:59 Last Admin: 08/31/18 09:21 Dose: 4 tab Documented by: Levothyroxine Sodium (Levothyroxine Sodium) 137 mcg PO DAILYBB [facility] Stop: 09/28/18 08:59 Last Admin: 08/31/18 09:20 Dose: 137 mcg Documented by: Lisinop[facility] ([facility]estril) [facility] Stop: 09/28/18 08:59 Last Admin: 08/31/18 09:23 Dose: 10 mg Documented by: Ramsey Carbonate (Ramsey Carbonate) 450 mg [facility] Stop: 09/28/18 08:59 Last Admin: 08/31/18 09:23 Dose: 450 mg Documented by: Ramsey Carbonate (Ramsey Carbonate) 600 mg PO [facility] Stop: 09/27/18 21:59 Last Admin: 08/31/18 21:01 Dose: 600 mg Documented by: Magnesium Hydroxide (Milk Of Magnesia) 30 ml PO DAILY PRN PRN Reason: Constipation Stop: 09/27/18 05:12 Metformin HCl (Glucophage) 500 [facility] Stop: 09/27/18 17:44 Last Admin: 08/31/18 17:20 Dose: 500 mg Documented by: Mirabegron (Myrbetriq Er) 25 mg PO [facility] Stop: 09/27/18 21:59 Last Admin: 08/31/18 21:01 Dose: 25 mg Documented by: *Oral Contraceptive* Non-Form Patient's Own Med 1 ea PO DAILY [facility] Stop: 09/28/18 08:59 Last Admin: 08/31/18 09:24 Dose: 1 ea Documented by: Ondansetron HCl (Zofran Odt) 8 mg PO Q8 PRN PRN Reason: Nausea Stop: 09/27/18 14:30 Last Admin: 08/30/18 13:21 Dose: 8 mg Documented by: Polyethylene Glycol (Miralax Powder Packet) 17 gm PO BID PRN PRN Reason: Constipation Potassium Chloride (Klor-Con M10) 10 meq PO [facility] Stop: 09/27/18 14:59 Last Admin: 08/31/18 09:22 Dose: 10 meq Documented by: Simethicone (Mylicon) 80 mg PO QID PRN PRN Reason: GAS/BLOATING Stop: 09/27/18 14:59 Sodium Chloride ([place] Nasal) 1 - 2 sprays NA PRN PRN PRN Reason: Nasal Dryness/Congestion Stop: 09/27/18 05:12 Spironolactone (Aldactone) 25 mg PO QAM [facility] Stop: 09/28/18 08:59 Last Admin: 08/31/18 09:20 Dose: 25 mg Documented by: Topiramate (Topamax) 50 mg PO BID [facility] Stop: 09/27/18 20:59 Last Admin: 08/31/18 21:01 Dose: 50 mg Documented by: Post Discharge Appointments Primary Care Physician Name Of Family Doctor: Perez Stafford Primary Care Provider Appointment Comment: [address] [facility] [place] [address] Psychiatrist Name of Psychiatrist: Dr. Hoffman Psychiatrist's Psychiatric Appointment Comment: [address], [address], [place] [address] Therapist Name of Therapist: Trini day [facility] Psychiatry Therapist's Therapy Appointment Comment: [address], [address], [place] [address] Metal Tile Setter Name of Metal Tile Setter: [place] day [facility] Phone Number for Metal Tile Setter: [phone] Contact Information Discharge Discharge Address: [address] [place] [id number] CPT Code CPT Code 55642
[2018-09-01] MEDS: TOPIRAMATE 50 MG TAB PO SCH ×2 (10:22→21:01)
[2018-09-01] MEDS: cloZAPine 100 MG TAB PO SCH ×2 (10:23→21:01)
[2018-09-01] MEDS: LEVOTHYROXINE SODIUM 137 MCG TABLET PO SCH (10:23)
[2018-09-01] MEDS: DOCUSATE SODIUM 100 MG CAP PO SCH ×2 (10:23→21:01)
[2018-09-01] MEDS: FUROSEMIDE 80 MG TAB PO SCH ×2 (10:23→15:40)
[2018-09-01] MEDS: DULOXETINE HCL 30 MG CAP PO SCH (10:23)
[2018-09-01] MEDS: FERROUS SULFATE 325 MG TAB PO SCH (10:24)
[2018-09-01] MEDS: SPIRONOLACTONE 25 MG TAB PO SCH (10:24)
[2018-09-01] MEDS: METFORMIN HCL 500 MG TAB PO SCH ×2 (10:24→17:48)
[2018-09-01] MEDS: ATORVASTATIN 10 MG TAB PO SCH (10:24)
[2018-09-01] MEDS: LACTOBACILLUS ACIDOPHILUS (FLORANEX) TAB PO SCH (10:24)
[2018-09-01] MEDS: POTASSIUM CHLORIDE 10 MEQ TABCR PO SCH (10:25)
[2018-09-01] MEDS: GABAPENTIN 300 MG CAP PO SCH ×3 (10:25→21:01)
[2018-09-01] MEDS: GABAPENTIN 600 MG TAB PO SCH ×3 (10:25→21:01)
[2018-09-01] MEDS: LITHIUM CARBONATE 300 MG TAB PO SCH ×2 (10:25→21:02)
[2018-09-01] MEDS: BACLOFEN 10 MG TAB PO SCH ×2 (10:25→21:00)
[2018-09-01] MEDS: LISINOPRIL 10 MG TAB PO SCH (10:27)
[2018-09-01] MEDS: ONDANSETRON 8MG OD TAB PO PRN (12:20)
[2018-09-01] MEDS: cloZAPine 25 MG TAB PO SCH (12:21)
[2018-09-01] MEDS: ALUMINUM/MAGNESIUM SUSP 30 ML UDC PO PRN (19:49)
[2018-09-01] MEDS: MIRABEGRON ER 25 MG TAB PO SCH (21:02)
[2018-09-02 07:16] VITALS: BP 114/75
[2018-09-02] MEDS: FUROSEMIDE 80 MG TAB PO SCH ×2 (07:57→17:02)
[2018-09-02] MEDS: LEVOTHYROXINE SODIUM 137 MCG TABLET PO SCH (07:57)
[2018-09-02] MEDS: FERROUS SULFATE 325 MG TAB PO SCH (08:45)
[2018-09-02] MEDS: cloZAPine 100 MG TAB PO SCH ×2 (08:45→21:06)
[2018-09-02] MEDS: DULOXETINE HCL 30 MG CAP PO SCH (08:45)
[2018-09-02] MEDS: DOCUSATE SODIUM 100 MG CAP PO SCH ×2 (08:45→21:06)
[2018-09-02] MEDS: SPIRONOLACTONE 25 MG TAB PO SCH (08:45)
[2018-09-02] MEDS: LACTOBACILLUS ACIDOPHILUS (FLORANEX) TAB PO SCH (08:46)
[2018-09-02] MEDS: METFORMIN HCL 500 MG TAB PO SCH ×2 (08:46→17:02)
[2018-09-02] MEDS: POTASSIUM CHLORIDE 10 MEQ TABCR PO SCH (08:47)
[2018-09-02] MEDS: ATORVASTATIN 10 MG TAB PO SCH (08:48)
[2018-09-02] MEDS: BACLOFEN 10 MG TAB PO SCH ×2 (08:48→21:06)
[2018-09-02] MEDS: GABAPENTIN 600 MG TAB PO SCH ×3 (08:49→21:06)
[2018-09-02] MEDS: GABAPENTIN 300 MG CAP PO SCH ×3 (08:49→21:06)
[2018-09-02] MEDS: LITHIUM CARBONATE 300 MG TAB PO SCH ×2 (08:49→21:06)
[2018-09-02] MEDS: TOPIRAMATE 50 MG TAB PO SCH ×2 (08:50→21:06)
[2018-09-02] MEDS: LISINOPRIL 10 MG TAB PO SCH (08:50)
--- NOTE | 2018-09-02 10:59 | Psychiatric Progress Note ---
Date of Service September 02, 2018 Impression / Recommendations Impression There is no reported change in the presence of patient's command auditory hallucinations, now targeting her sister and nephews which has been causing patient concern. Patient does feel distressed when focusing on these voices, even to the point of questioning if she should involve police and the threats. We had a brief conversation about reality testing, which may be beyond patient's ability at this current time. She is unable to convincingly contract for safety outside of the hospital setting. Given reports of ongoing command auditory hallucinations, will further titrate clozapine to 100mg / 75mg / 300mg. With potential to titrate as needed to better target auditory hallucinations. Patient is also prescribed Risperdal Consta 25mg which is given every 2 weeks. Patient had just received dose prior to admission and will not likely be due before discharge; however, future consideration could be to further titrate the dose of this injection to target long-standing auditory hallucinations. Today patient appears more delusional with regard to command hallucinations, truly believing that her sister and nephews are not harmeven to the point of questioning if she should speak with police about their threats. She does not seem appropriate for discharge back to her intermediate today given these reports show worsening of her condition. Inpatient treatment remains indicated due to the severity of her symptoms and risk for self injury if discharged prematurely. (1) Major depressive disorder with psychotic features: 08/28 - Increase clozapine to 100mg qAM and 325mg qHS to target auditory hallucinations - Continue lithium, Cymbalta, and Risperdal Consta - Admitted to a locked inpatient behavioral health unit, on q15 minute safety checks - Encourage medication initiation/adjustments as indicated - Encourage participation in group and recreational therapies - Gather collateral information from outpatient providers - Suggest family meeting to involve outpatient supports in safety planning - Arrange appropriate aftercare 08/29 - Titrating total daily dose of clozapine to target ongoing command hallucinations - will schedule 100mg qAM - 50mg @ 1200 - 300mg qHS - Watch for increased daytime sedation, as could consolidated afternoon dose to bedtime if necessary - Next CBC w/diff ordered for 09/03/18 - Continue other medications as prescribed - Encourage participation in group and recreational therapies 08/30 -maintained meds unchanged today, watching for daytime sedation with plan to consolidate afternoon dose to bedtime if necessary. -addressing chronic AH and how pt addresses this symptom with aim to help alleviate risk of harm, assessing for command nature of AH as well, pt on 302 and if reasonable and appropriate stabilization continues is likely to be appropriate for discharge before 302 expires. 08/31 - maintained treatment unchanged 09/01 -auditory hallucinations are ongoing, reluctant to further increase medications due to overeating/obesity, but may need to consider further titration of clozapine given severity of psychotic symptoms. Encourage group attendance and participation and coping skills to manage auditory hallucinations. 09/02 - titrate clozapine to 100mg qAM, 75mg @1200, and 300mg qHS. Consider recommending titration of Risperdal Consta injection on discharge - not likely to still be admitted at time of her next injection. (2) Hypothyroidism: 08/28 - continue home dose of levothyroxine (3) Back pain: 08/28 - continue home dose of baclofen 08/29 - Reporting increased back pain this morning - Encourage tylenol use prn (4) Migraine headache: 08/28 - continue home dose of topiramate (5) Obesity: 08/28 - continue metformin; encourage behavioral restrictions with regard to over-eating 09/02 - Dietary consult completed, patient was encouraged to avoid excessive juice or sugary foods and stick to a 1500-calorie diet -We will attempt to assist patient with making these healthy food choices when choosing menu items are requesting snacks (6) Hypokalemia: 08/28 - Potassium = 2.8 in ED, given 40mEq in ED prior to admission - Continue 10mEq home dosage 08/29 - Repeat potassium this AM = 3.7 - Continue home dose of potassium chloride (7) Constipation: 09/01 -continue home dose of docusate, and MiraLAX as needed. Encourage her to drink water, rather than sweetened beverages, and to be out of bed and physically active. Risk Factors Assessment Male: No : Yes Do You Have Access To A Gun?: No Health Problems: Yes Mental Health Diagnoses: Yes Substance Use Disorders: No Previous Attempt: Yes Family History of Suicide: No Previous Psychiatric Hospitalization: Yes Hopelessness: Yes Smoker: No Protective Factors Assessment Jainism Beliefs: No : No Responsible for Young Children: No Employed: No Stable Relationships: No Supportive Family: No Interval History Identifying Information ISAÍAS BLAKE is a 33-year-old F who currently lives in [place] at a [facility]. P t has a history of major depressive disorder with psychotic features and was discharged from [facility] 5 months ago. Pt was admitted on 08/28/18 05:13 on a 302 involuntary commitment for worsening depression and auditory hallucinations commanding patient to kill herself. Pt signed in voluntarily prior to expiration of her 302. Chief Complaint "I am okay, just feeling really worried." Review of Systems Notes Constitutional: swelling of ankles and feet Cardiovascular: denied Respiratory: denied Gastrointestinal: denied Neurological: denied Psychiatric: denies symptoms other than stated above Total of at least 10 systems reviewed, pertinent positives as above and in HPI. Sleep Information Total Hours of Sleep: 7 Sleep Comments: pt on q-15 minute checks Meal Information Percent Meal Consumed - Breakfast: 100 Percent Meal Consumed - Lunch: 100 Percent Meal Consumed - Dinner: 25 Nutrition Comment: per meal record Subjective Subjective Patient was seen & assessed and interval progress reviewed with Nursing. Staff reports the patient has been reporting desire for discharge back to her intermediate; however, she has not showed much of a change in affect or reported change in mood since her admission. Last evening patient reported her mood a 4/10 and felt "slowed." Patient was seen today to assess progress since admission. She initially states that she is "good"; however, she then shares that her auditory hallucinations have continued without change in severity. The patient states the voices are now telling her "I need to kill myself where they will hurt my sister or my nephews." Patient reports she is so concerned about these threats that she is considering "talking to a mass spectroscopist or something." When the idea of reality testing was introduced, the patient states "but I cannot do that, they are real people." The patient states her voices are "Mr. See Nguyen and Noemi Yury" - two individuals she "saw on facebook." Patient states she is unsure when the specific individuals began speaking to her. Patient states the voices of also been telling her that she is faking her mental health condition and therefore does not deserve her disability. Patient is conflicted as she is starting to believe these voices and beginning to feel confused and hopeless. We discussed changes in hallucinations or other symptoms since her admission. Patient states she is "always tired and dragging." She has not noticed a considerable increase in sedation since her clozapine was titrated. Staff did report patient complaints of pitting edema in her ankles, which is observed today. Patient was encouraged to keep her feet elevated throughout the day, she is on a low-sodium diet, the patient questions of eating popcorn the other evening is contributing to her current symptoms. Patient continues to desire discharge back to the intermediate; however, she is not convincingly able to contract for safety outside of the hospital setting. She denies other needs or concerns today. Physical Exam Psychiatric Orientation: alert, oriented x 3 and cooperative Apperance: appropriately dressed and + disheveled (hair pulled back in messy gifty; shirt with multiple stains) Eye Contact: + fair eye contact (Often staring at floor, only brief moments of direct eye contact) Motor Behavior: steady gait and station (Cautious movements, but no significant instability when observing ambulation), no abnormal motor movements and + psychomotor retardation Speech: normal rate/rhythm/volume of speech Affect: + depressed affect (Appearing somewhat tearful at times), + constricted affect and mood congruent with affect Mood: + depressed mood and + anxious mood (When discussing command auditory hallucinations, and threats against sister and nephews) Initially states mood is "good", and reports she is "worried and scared" Thought Process: goal directed thought process (The goal is focused on ensuring the safety of her sister and nephews) and clear/coherent thought process Thought Content: + paranoid (Fearing harm us to come to her sister and nephews), + delusions (Believing there is truth in the voices threatening her family members), + persecution and + hopelessness Suicidal Thoughts: + reports suicidal thoughts (But is unable to contract for safety outside of the hospital setting given ongoing commands to kill herself) Homicidal Thoughts: denies homicidal thoughts Hallucinations: + auditory hallucinations ("They are telling me I need to kill myself or they will hurt my sister and nephews"); no visual hallucinations Cognition: recent memory grossly intact, remote memory grossly intact, attention grossly intact and language grossly intact Estimated Intelligence: average estimated intelligence and consistent with education level Insight: + impaired insight Judgement: + impaired judgement Vital Signs (Past 24 Hours) Last Vital Signs Temp 36.9 C 09/02/18 07:13 Pulse 108 H 09/02/18 07:13 Resp 20 09/02/18 07:13 BP 114/75 09/02/18 07:13 Pulse Ox 96 05/09/19 03:31 Estimating grade 2 pitting edema of lower legs bilaterally, most apparent below mid-tibia. No obvious discoloration of skin is observed, no indentation at time of exam from socks. Results & Data Current Inpatient Medications Current Inpatient Medications: Current Inpatient Medications Acetaminophen (Tylenol) 650 mg PO Q4H PRN PRN Reason: Headache or Minor Fever Stop: 09/27/18 05:12 Last Admin: 09/01/18 20:59 Dose: 650 mg Documented by: Al Hydrox/Mg Hydrox/Simethicone (Maalox) 30 ml PO Q4H PRN PRN Reason: GI Upset Stop: 09/27/18 05:12 Last Admin: 09/01/18 19:49 Dose: 30 ml Documented by: Atorvastatin Calcium (Lipitor) 10 mg PO QAM [facility] Stop: 09/28/18 08:59 Last Admin: 09/02/18 08:48 Dose: 10 mg Documented by: Baclofen (Lioresal) 5 mg PO BID [facility] Stop: 09/27/18 20:59 Last Admin: 09/02/18 08:48 Dose: 5 mg Documented by: Bismuth Subsalicylate (Kaopectate) 15 ml PO PRN PRN PRN Reason: Loose Stool Stop: 09/27/18 05:12 Clozapine (Clozapine) 100 mg PO QAM [facility] Stop: 09/28/18 08:59 Last Admin: 09/02/18 08:45 Dose: 100 mg Documented by: Clozapine (Clozapine) 300 mg PO HS [facility] Stop: 09/27/18 21:59 Last Admin: 09/01/18 21:01 Dose: 300 mg Documented by: Clozapine (Clozaril) 50 mg PO 1200 [facility] Stop: 09/28/18 11:59 Last Admin: 09/01/18 12:21 Dose: 50 mg Documented by: Docusate Sodium (Colace) 100 mg PO BID [facility] Stop: 09/27/18 20:59 Last Admin: 09/02/18 08:45 Dose: 100 mg Documented by: Duloxetine HCl (Cymbalta) 90 mg PO QAM [facility] Stop: 09/28/18 08:59 Last Admin: 09/02/18 08:45 Dose: 90 mg Documented by: Ferrous Sulfate (Feosol) 325 mg PO QAM [facility] Stop: 09/28/18 08:59 Last Admin: 09/02/18 08:45 Dose: 325 mg Documented by: Furosemide (Lasix) 80 mg PO BID@0800,1600 [facility] Stop: 09/27/18 15:59 Last Admin: 09/02/18 07:57 Dose: 80 mg Documented by: Gabapentin (Neurontin) 300 mg PO TID [facility] Stop: 09/27/18 20:59 Last Admin: 09/02/18 08:49 Dose: 300 mg Documented by: Gabapentin (Neurontin) 600 mg PO TID [facility] Stop: 09/27/18 20:59 Last Admin: 09/02/18 08:49 Dose: 600 mg Documented by: Hydroxyzine HCl (Vistaril) 50 mg PO HSZ PRN PRN Reason: Insomnia Stop: 09/27/18 05:12 Hydroxyzine HCl (Vistaril) 25 mg PO Q4H PRN PRN Reason: Anxiety Stop: 09/27/18 05:12 Last Admin: 08/31/18 19:43 Dose: 25 mg Documented by: Lactobacillus Acidophilus (Floranex) [facility] Stop: 09/28/18 08:59 Last Admin: 09/02/18 08:46 Dose: 4 tab Documented by: Levothyroxine Sodium (Levothyroxine Sodium) [facility] Stop: 09/28/18 08:59 Last Admin: 09/02/18 07:57 Dose: 137 mcg Documented by: Lisinopril (Zestril) 10 [facility] Stop: 09/28/18 08:59 Last Admin: 09/02/18 08:50 Dose: 10 mg Documented by: [place] Carbonate ([place] Carbonate) 450 mg PO QAM [facility] Stop: 09/28/18 08:59 Last Admin: 09/02/18 08:49 Dose: 450 mg Documented by: [place] Carbonate ([place] Carbonate) 600 mg PO [facility] Stop: 09/27/18 21:59 Last Admin: 09/01/18 21:02 Dose: 600 mg Documented by: Magnesium Hydroxide (Milk Of Magnesia) 30 ml PO DAILY PRN PRN Reason: Constipation Stop: 09/27/18 05:12 Metformin HCl (Glucophage) 500 mg PO BIDM [facility] Stop: 09/27/18 17:44 Last Admin: 09/02/18 08:46 Dose: 500 mg Documented by: Mirabegron (Myrbetriq Er) 25 mg PO HS [facility] Stop: 09/27/18 21:59 Last Admin: 09/01/18 21:02 Dose: 25 mg Documented by: *Oral Contraceptive* Non-Form Patient's Own Med 1 ea PO DAILY [facility] Stop: 09/28/18 08:59 Last Admin: 09/02/18 07:59 Dose: 1 ea Documented by: Ondansetron HCl (Zofran Odt) 8 mg PO Q8 PRN PRN Reason: Nausea Stop: 09/27/18 14:30 Last Admin: 09/01/18 12:20 Dose: 8 mg Documented by: Polyethylene Glycol (Miralax Powder Packet) 17 gm PO BID PRN PRN Reason: Constipation Potassium Chloride (Klor-Con M10) 10 meq PO QAM [facility] Stop: 09/27/18 14:59 Last Admin: 09/02/18 08:47 Dose: 10 meq Documented by: Simethicone (Mylicon) 80 mg PO QID PRN PRN Reason: GAS/BLOATING Stop: 09/27/18 14:59 Sodium Chloride ([place] Nasal) 1 - 2 sprays NA PRN PRN PRN Reason: Nasal Dryness/Congestion Stop: 09/27/18 05:12 Spironolactone (Aldactone) 25 mg PO QAM [facility] Stop: 09/28/18 08:59 Last Admin: 09/02/18 08:45 Dose: 25 mg Documented by: Topiramate (Topamax) 50 mg PO BID [facility] Stop: 09/27/18 20:59 Last Admin: 09/02/18 08:50 Dose: 50 mg Documented by: Post Discharge Appointments Primary Care Physician Name Of Family Doctor: Preez Stafford Primary Care Provider Appointment Comment: [address], [place] [address] Psychiatrist Name of Psychiatrist: Dr. Hoffman Psychiatrist's Date of Appointment with Psychiatrist: 09/08/18 Time of Appointment with Psychiatrist: 11:50 a.m. Psychiatric Appointment Comment: [address], [place] [address] Therapist Name of Therapist: Trini day [facility]'s Date of Therapist Appointment: 09/09/18 Time of Therapist Appointment: 12:00 p.m. Therapy Appointment Comment: [address], [place] [address] Log Carrier Operator Name of Log Carrier Operator: Elizabeth day [facility] Phone Number for Log Carrier Operator: [phone] Date of Appointment with Log Carrier Operator: 09/05/18 Time of Appointment with Log Carrier Operator: 9am Other #1: Name of Aftercare Appointment: MIRANDA JACKSON Phone Number of Aftercare Appointment: [phone] Aftercare Appointment Comment: [address] [place] [address] Contact Information Discharge Discharge Address: [address] [place] [address] CPT Code CPT Code 53296
[2018-09-02] MEDS: cloZAPine 25 MG TAB PO SCH (13:01)
[2018-09-02] MEDS: ALUMINUM/MAGNESIUM SUSP 30 ML UDC PO PRN (15:21)
[2018-09-02] MEDS: MIRABEGRON ER 25 MG TAB PO SCH (21:06)
[2018-09-03 06:55] VITALS: PULSE 103; TEMP 99.5
[2018-09-03 08:06] LABS: Basophils # (auto) 0.02 K/uL (0-0.2); Basophils % (auto) 0.2 %; Hematocrit (blood only) 38.1 % (37-47); Hemoglobin 12.2 g/dL (12.0-16.0); Immature Granulocytes # (auto) 0.07 K/uL (0.00-0.02); Immature Granulocytes % (auto) 0.6 %; Lymphocytes # (auto) 1.88 K/uL (1.2-3.4); Mean Corpuscular Volume 85.6 fL (80-100); Mean Platelet Volume 9.1 fL (7.4-10.4); Monocytes # (auto) 0.59 K/uL (0.11-0.59); Monocytes % (auto) 4.7 %; Neutrophils # (auto) 9.97 K/uL (1.4-6.5); Neutrophils % (auto) 79.5 %; Platelet Count 293 K/uL (130-400); RDW Standard Deviation 50.5 fL (36.4-46.3); Red Blood Count 4.45 M/uL (4.2-5.4); White Blood Count 12.53 K/uL (4.8-10.8)
[2018-09-03] MEDS: FUROSEMIDE 80 MG TAB PO SCH (08:15)
[2018-09-03] MEDS: LEVOTHYROXINE SODIUM 137 MCG TABLET PO SCH (08:15)
[2018-09-03] MEDS: cloZAPine 100 MG TAB PO SCH (09:21)
[2018-09-03] MEDS: DULOXETINE HCL 30 MG CAP PO SCH (09:21)
[2018-09-03] MEDS: DOCUSATE SODIUM 100 MG CAP PO SCH (09:21)
[2018-09-03] MEDS: METFORMIN HCL 500 MG TAB PO SCH (09:22)
[2018-09-03] MEDS: FERROUS SULFATE 325 MG TAB PO SCH (09:22)
[2018-09-03] MEDS: POTASSIUM CHLORIDE 10 MEQ TABCR PO SCH (09:22)
[2018-09-03] MEDS: LACTOBACILLUS ACIDOPHILUS (FLORANEX) TAB PO SCH (09:22)
[2018-09-03] MEDS: BACLOFEN 10 MG TAB PO SCH (09:24)
[2018-09-03] MEDS: ATORVASTATIN 10 MG TAB PO SCH (09:25)
[2018-09-03] MEDS: LITHIUM CARBONATE 300 MG TAB PO SCH (09:25)
[2018-09-03] MEDS: GABAPENTIN 300 MG CAP PO SCH ×2 (09:26→13:49)
[2018-09-03] MEDS: GABAPENTIN 600 MG TAB PO SCH ×2 (09:26→13:49)
[2018-09-03] MEDS: LISINOPRIL 10 MG TAB PO SCH (09:27)
[2018-09-03] MEDS: TOPIRAMATE 50 MG TAB PO SCH (09:27)
[2018-09-03] MEDS: SPIRONOLACTONE 25 MG TAB PO SCH (09:38)
--- NOTE | 2018-09-03 11:33 | Discharge Summary ---
Date of Service September 03, 2018 History of Present Illness Zhanna Almendarez is a 33-year-old female admitted involuntarily for inpatient psychiatric admission. Pt was brought to the ED by [employer] on a 302 warrant with petitioning statement by [facility] halfway staff. Pt had reported to staff that "the voices are telling me to kill myself". It was also reported that the voices tell her not to take her medications. Pt was previously hospitalized on our unit in 02/2016 and was transferred to [facility] with a diagnosis of major depressive disorder with psychotic features. She was discharged in 04/2018 and has been living in a halfway. On assessment today, the patient is tired and only somewhat willing to participate in interview. She is unfortunately awoken from sleep, and provides on brief answers to questions asked. She does admit that the voices have been worsening in severity, telling her to "kill myself - with my razor blade." She reports about two voices that often verbalize negative thoughts. Pt states that as of her admission, she has not felt the urge to follow through with the voices' commands. Pt admits that in the past she had cut her wrists when the voices had become overwhelming. Pt states her Clozaril had been titrated about 2-3 months prior to admission due to worsening command hallucinations, and the medication adjustment was effective to "tame em down some." Pt states her mood is "scared" due to the presence of the voices. After several minutes of gathering history, patient becomes distracted and especially preoccupied with eating breakfast - we discuss options for medications adjustments and she states, "I don't want you messing with my meds." She further clarifies that this means she does not want them discontinued, but she would agree with titrating doses if recommended. Physical Exam Psychiatric Orientation: alert, oriented x 3 and cooperative Apperance: appropriately dressed, appropriately groomed and appeared stated age obese Eye Contact: good eye contact Motor Behavior: steady gait and station and no abnormal motor movements Speech: normal rate/rhythm/volume of speech Affect: + blunted affect "okay." Thought Process: goal directed thought process Thought Content: + preoccupation (with AH) Suicidal Thoughts: denies suicidal thoughts Homicidal Thoughts: denies homicidal thoughts Hallucinations: + auditory hallucinations; no visual hallucinations Cognition: recent memory grossly intact, attention grossly intact and language grossly intact Estimated Intelligence: average estimated intelligence Insight: + fair insight Judgement: + fair judgement Vital Signs (Past 24 Hours) Last Vital Signs Temp 37.5 C 09/03/18 06:54 Pulse 103 H 09/03/18 06:54 Resp 20 09/03/18 06:54 BP 114/75 09/03/18 06:54 Pulse Ox 96 08/28/18 03:31 Principal Diagnosis Major depressive disorder, recurrent, severe with psychosis. Rule out a primary thought disorder such as schizoaffective disorder depressive type or schizophrenia. Psychiatric Data The patient was on our unit for 6 days. Initially on admission, she was continued on all home medications with the exception of clozapine which was increased by 25 mg daily to target auditory hallucinations. It was titrated further during her stay for a total of 75mg increase, and she reported her auditory hallucinations were less intrusive, although still present. She was open with staff about the voices and would request to reality test what they were telling her. She attended and participated in groups, and socialized appropriately with peers. She was noted to eat excessively, reported significant weight gain, and met with the dietitian. Her outpatient leather case finisher met with her in the hospital and [facility] staff were contacted as well. They reported the patient has auditory hallucinations of voices at baseline, they often threaten the patient or her family. The patient was calm and cooperative throughout her stay. Day of Discharge Assessment The patient reports she is feeling better and would like to be discharged to the [facility] today. She reports mood is "okay," and although AH continue, they are less intense and intrusive. She states the voices are never kind or even neutral, but make derogatory comments and say very upsetting things. Recently they have been telling her she is a "pedophiler," which she has asked to reality test multiple times, explaining that when she had sex for the first time, she didn't bleed, and she was curious is this was normal, so looked it up online. She watched 3 videos of "young girls being deflowered," and thinks that is why the voices are saying she is a pedophile. She is able to review some ways that she ruthann with the voices, including talking to other people, distraction, and sleeping. She denies thoughts of harming herself or anyone else, reports the medication adjustment has been helpful, and states she feels ready to leave the hospital and return to the [facility]. She denies any safety concerns, and is able to review her safety plan. Transition of Care Transition Of Care Record: was reviewed with the patient Advance Directives Advance Directives Information Provided: Yes Advance Directives: No Mental Health Advance Directive: No Advance Directives on File: No Living Will: No Power of Innersole Maker: No Advance Directives Reason:: Declines as Mental Health Visit. Risk Factors Assessment Risk factors were mitigated by admission to the hospital, adjusting medications to target psychotic symptoms, involving the patient in groups and therapy, working on healthy coping skills and a discharge safety plan, coordinate in care with her outpatient support team, undressing health issues/meeting with the dietitian, encouraging healthy diet. Patient is reporting improvement in psychotic symptoms, has consistently denied thoughts of harming herself or others, is performing ADLs independently, taking medications as prescribed, and requesting discharge. Per her outpatient leather case finisher, she is at her baseline. She has outpatient supports and is willing to follow up with them, is requesting discharge, and she is no longer at acute risk of harm to herself or others, can be managed as an outpatient at this time. Male: No : Yes Do You Have Access To A Gun?: No Health Problems: Yes Mental Health Diagnoses: Yes Substance Use Disorders: No Previous Attempt: Yes Family History of Suicide: No Previous Psychiatric Hospitalization: Yes Hopelessness: Yes Smoker: No Protective Factors Assessment Buddhism Beliefs: No : No Responsible for Young Children: No Employed: No Stable Relationships: No Supportive Family: No Tobacco Cessation at Discharge Tobacco Cessation Medication Prescribed at Discharge: Not Applicable/Non-Smoker Antipsychotic Medications The patient is on clozapine and Risperdal Consta, 2 antipsychotics are necessary due to the severity of her psychotic symptoms and use of risperidone to augment clozapine treatment. Total Time Total Time Spent: Greater Than 30 Minutes Total Time Includes: Examination of the patient, Discharge Planning and M edication Reconciliation Discharge Data Consultations 08/28/18 05:43 ED Decision to Admit Stat Lab Results 08/27/18 08/27/18 08/27/18 23:13 23:13 23:13 WBC 15.52 H RBC 4.96 Hgb 13.9 Hct 42.5 MCV 85.7 MCH 28.0 MCHC 32.7 RDW Std Deviation 48.4 H RDW Coeff of Manohar 15.3 H Plt Count 306 MPV 9.9 Immature Gran % (Auto) 0.4 Neut % (Auto) 80.0 Lymph % (Auto) 14.4 Hanson % (Auto) 5.0 Eos % (Auto) 0.0 Baso % (Auto) 0.2 Immature Gran # (Auto) 0.06 H Neut # (Auto) 12.42 H Lymph # (Auto) 2.23 Hanson # (Auto) 0.78 H Eos # (Auto) 0.00 Baso # (Auto) 0.03 Sodium 136 Potassium 2.8 L Chloride 100 Carbon Dioxide 25 Anion Gap 11.0 BUN 15 Creatinine 0.95 Est Cr Clr Drug Dosing 121.3 Est GFR ( Amer) 89.9 Est GFR (Non-Af Amer) 77.6 BUN/Creatinine Ratio 15.4 Glucose 99 Calcium 8.6 Total Bilirubin 0.2 AST 27 ALT 49 Alkaline Phosphatase 80 Total Protein 7.4 Albumin 3.2 L Globulin 4.2 H Albumin/Globulin Ratio 0.8 L TSH 1.430 Urine Color Urine Appearance Urine pH Ur Specific [place] Urine Protein Urine Glucose (UA) Urine Ketones Urine Blood Urine Nitrite Urine Bilirubin Urine Urobilinogen Ur Leukocyte Esterase Urine Test POC Ur Test Nasal Screen MRSA (PCR) Salicylates < 1.7 L Urine Opiates Screen Ur Methadone, Qual Acetaminophen < 2 L Urine Barbiturates Ur Phencyclidine (PCP) U Amphetamin/Meth Scrn MDMA (Ecstasy) Screen U Benzodiazepines Scrn [place] 0.8 Ur Cocaine Metabolite U Marijuana (THC) Screen Ethyl Alcohol mg/dL 08/27/18 08/28/18 08/28/18 23:13 02:05 02:05 WBC RBC Hgb Hct MCV MCH MCHC RDW Std Deviation RDW Coeff of Manohar Plt Count MPV Immature Gran % (Auto) Neut % (Auto) Lymph % (Auto) Hanson % (Auto) Eos % (Auto) Baso % (Auto) Immature Gran # (Auto) Neut # (Auto) Lymph # (Auto) Hanson # (Auto) Eos # (Auto) Baso # (Auto) Sodium Potassium Chloride Carbon Dioxide Anion Gap BUN Creatinine Est Cr Clr Drug Dosing Est GFR ( Amer) Est GFR (Non-Af Amer) BUN/Creatinine Ratio Glucose Calcium Total Bilirubin AST ALT Alkaline Phosphatase Total Protein Albumin Globulin Albumin/Globulin Ratio TSH Urine Color Yellow Urine Appearance Clear Urine pH 6.5 Ur Specific [place] 1.015 Urine Protein Negative Urine Glucose (UA) Negative Urine Ketones Negative Urine Blood Negative Urine Nitrite Negative Urine Bilirubin Negative Urine Urobilinogen Negative Ur Leukocyte Esterase Negative Urine Test POC Ur Test Nasal Screen MRSA (PCR) Salicylates Urine Opiates Screen Neg Ur Methadone, Qual Neg Acetaminophen Urine Barbiturates Neg Ur Phencyclidine (PCP) Neg U Amphetamin/Meth Scrn Neg MDMA (Ecstasy) Screen Neg U Benzodiazepines Scrn Neg [place] Ur Cocaine Metabolite Neg U Marijuana (THC) Screen Neg Ethyl Alcohol mg/dL < 3.0 08/28/18 08/28/18 08/28/18 02:05 02:10 03:23 WBC RBC Hgb Hct MCV MCH MCHC RDW Std Deviation RDW Coeff of Manohar Plt Count MPV Immature Gran % (Auto) Neut % (Auto) Lymph % (Auto) Hanson % (Auto) Eos % (Auto) Baso % (Auto) Immature Gran # (Auto) Neut # (Auto) Lymph # (Auto) Hanson # (Auto) Eos # (Auto) Baso # (Auto) Sodium Potassium Chloride Carbon Dioxide Anion Gap BUN Creatinine Est Cr Clr Drug Dosing Est GFR ( Amer) Est GFR (Non-Af Amer) BUN/Creatinine Ratio Glucose Calcium Total Bilirubin AST ALT Alkaline Phosphatase Total Protein Albumin Globulin Albumin/Globulin Ratio TSH Urine Color Urine Appearance Urine pH Ur Specific [place] Urine Protein Urine Glucose (UA) Urine Ketones Urine Blood Urine Nitrite Urine Bilirubin Urine Urobilinogen Ur Leukocyte Esterase Urine Test Negative POC Ur Test NEG Nasal Screen MRSA (PCR) Negative Salicylates Urine Opiates Screen Ur Methadone, Qual Acetaminophen Urine Barbiturates Ur Phencyclidine (PCP) U Amphetamin/Meth Scrn MDMA (Ecstasy) Screen U Benzodiazepines Scrn [place] Ur Cocaine Metabolite U Marijuana (THC) Screen Ethyl Alcohol mg/dL 08/29/18 09/03/18 09:00 07:42 WBC 12.53 H RBC 4.45 Hgb 12.2 Hct 38.1 MCV 85.6 MCH 27.4 MCHC 32.0 RDW Std Deviation 50.5 H RDW Coeff of Manohar 16.0 H Plt Count 293 MPV 9.1 Immature Gran % (Auto) 0.6 Neut % (Auto) 79.5 Lymph % (Auto) 15.0 Hanson % (Auto) 4.7 Eos % (Auto) 0.0 Baso % (Auto) 0.2 Immature Gran # (Auto) 0.07 H Neut # (Auto) 9.97 H Lymph # (Auto) 1.88 Hanson # (Auto) 0.59 Eos # (Auto) 0.00 Baso # (Auto) 0.02 Sodium Potassium 3.7 D Chloride Carbon Dioxide Anion Gap BUN Creatinine Est Cr Clr Drug Dosing Est GFR ( Amer) Est GFR (Non-Af Amer) BUN/Creatinine Ratio Glucose Calcium Total Bilirubin AST ALT Alkaline Phosphatase Total Protein Albumin Globulin Albumin/Globulin Ratio TSH Urine Color Urine Appearance Urine pH Ur Specific [place] Urine Protein Urine Glucose (UA) Urine Ketones Urine Blood Urine Nitrite Urine Bilirubin Urine Urobilinogen Ur Leukocyte Esterase Urine Test POC Ur Test Nasal Screen MRSA (PCR) Salicylates Urine Opiates Screen Ur Methadone, Qual Acetaminophen Urine Barbiturates Ur Phencyclidine (PCP) U Amphetamin/Meth Scrn MDMA (Ecstasy) Screen U Benzodiazepines Scrn [place] Ur Cocaine Metabolite U Marijuana (THC) Screen Ethyl Alcohol mg/dL Hospital Course (1) Major depressive disorder with psychotic features: 08/28 - Increase clozapine to 100mg qAM and 325mg qHS to target auditory hallucin ations - Continue lithium, Cymbalta, and Risperdal Consta - Admitted to a locked inpatient behavioral health unit, on q15 minute safety checks - Encourage medication initiation/adjustments as indicated - Encourage participation in group and recreational therapies - Gather collateral information from outpatient providers - Suggest family meeting to involve outpatient supports in safety planning - Arrange appropriate aftercare 08/29 - Titrating total daily dose of clozapine to target ongoing command hallucinations - will schedule 100mg qAM - 50mg @ 1200 - 300mg qHS - Watch for increased daytime sedation, as could consolidated afternoon dose to bedtime if necessary - Next CBC w/diff ordered for 09/03/18 - Continue other medications as prescribed - Encourage participation in group and recreational therapies 08/30 -maintained meds unchanged today, watching for daytime sedation with plan to consolidate afternoon dose to bedtime if necessary. -addressing chronic AH and how pt addresses this symptom with aim to help alleviate risk of harm, assessing for command nature of AH as well, pt on 302 and if reasonable and appropriate stabilization continues is likely to be appropriate for discharge before 302 expires. 08/31 - maintained treatment unchanged 09/01 -auditory hallucinations are ongoing, reluctant to further increase medications due to overeating/obesity, but may need to consider further titration of clozapine given severity of psychotic symptoms. Encourage group attendance and participation and coping skills to manage auditory hallucinations. 09/02 - titrate clozapine to 100mg qAM, 75mg @1200, and 300mg qHS. Consider recommending titration of Risperdal Consta injection on discharge - not likely to still be admitted at time of her next injection. (2) Hypothyroidism: 08/28 - continue home dose of levothyroxine (3) Back pain: 08/28 - continue home dose of baclofen 08/29 - Reporting increased back pain this morning - Encourage tylenol use prn (4) Migraine headache: 08/28 - continue home dose of topiramate (5) Obesity: 08/28 - continue metformin; encourage behavioral restrictions with regard to over-eating 09/02 - Dietary consult completed, patient was encouraged to avoid excessive juice or sugary foods and stick to a 1500-calorie diet -We will attempt to assist patient with making these healthy food choices when choosing menu items are requesting snacks (6) Hypokalemia: 08/28 - Potassium = 2.8 in ED, given 40mEq in ED prior to admission - Continue 10mEq home dosage 08/29 - Repeat potassium this AM = 3.7 - Continue home dose of potassium chloride (7) Constipation: 09/01 -continue home dose of docusate, and MiraLAX as needed. Encourage her to drink water, rather than sweetened beverages, and to be out of bed and physically active. Post Discharge Appointments Primary Care Physician Name Of Family Doctor: Perez - Dr. Stafford Primary Care Provider Appointment Comment: [address], [place] [address] Psychiatrist Name of Psychiatrist: Dr. Hoffman Psychiatrist's Date of Appointment with Psychiatrist: 09/08/18 Time of Appointment with Psychiatrist: 11:50 a.m. Psychiatric Appointment Comment: [address], [place] [address] Therapist Name of Therapist: Trini day [facility] Psychiatry Therapist's Date of Therapist Appointment: 09/09/18 Time of Therapist Appointment: 12:00 p.m. Therapy Appointment Comment: [address], [address], [place] [address] Crop Insurance Claims Adjuster Name of Crop Insurance Claims Adjuster: Elizabeth Fenton [facility] Phone Number for Crop Insurance Claims Adjuster: [phone] Date of Appointment with Crop Insurance Claims Adjuster: 09/05/18 Time of Appointment with Crop Insurance Claims Adjuster: 9am Smoking Cessation Counseling Tobacco Cessation Medication Prescribed at Discharge: Not Applicable/Non-Smoker Contact Information Discharge Discharge Address: [address] [place] [id number] Discharge Plan Discharge Items Patient Disposition: Home - Self-Care Reason For Visit: MAJOR DEPRESSION WITH PSYCHOSIS Discharge Diagnosis: Major depression with psychosis, rule out a primary thought disorder (schizophrenia or schizoaffective disorder) Discharge Goals: Decrease discomfort, Improve function, Improve nutritional status, Learn about illness and Therapeutic intervention Activity: Per 'Additional Instructions' section Non-emergency contact: Primary Care Provider, Psychiatrist and Therapist Call non-emergency contact if: you have any medication questions and your symptoms worsen Follow-up/Referrals: Fernando Stafford, DO [Primary Care Provider] - Diet: Low Sodium (2gm) Addtl Provider Instructions: SPECIAL CARE INSTRUCTIONS: 1. Follow through with your scheduled aftercare appointments. If unable to keep an appointment, please call to reschedule. 2. Take your medication only as prescribed. Medication should not be changed or stopped without the approval of your doctor. In the event of worsening symptoms or concerns about side effects, contact your doctor immediately. 3. Utilize new healthy coping skills, anger management skills, and stress management skills learned during your hospitalization. Journal feelings and process them with a support person. Identify stressors or situations that may result in relapse, deterioration or inappropriate behaviors and develop a p rafael to deal with those issues. 4. If your coping skills are ineffective and you are in crisis, contact your outpatient providers for direction. If unable to reach your providers, please call the CAN HELP LINE AT or go to the closest Emergency Room. 5. Avoid alcohol and un-prescribed drugs. 6. You have been provided with the Mental Health Advance Directives Pamphlet for your review. AFTERCARE APPOINTMENTS: * Please call your insurance company prior to your scheduled appointment to confirm your aftercare providers are covered. Take your insurance information to your appointments. WHO TO CALL AND WHEN: Medical Emergencies: For questions or emergencies related to your hospital stay, please contact the Inpatient Behavioral Health Unit at [phone]. A color blender is on-call 12/11 for the Behavioral Health Unit for emergencies At any time you feel your situation is an emergency, you may also call 911 immediately. Your Doctors Instructions noted above were prepared by provider Patrica Iqbal MD. Prescriptions: New clozapine [Clozaril] 25 mg Tablet 75 mg PO 1200 Qty: 90 RF: 0 Continued levothyroxine 137 mcg tablet 137 mcg PO DAILY RF: 0 atorvastatin 10 mg tablet 10 mg PO QAM RF: 0 clozapine 100 mg tablet 300 mg HS RF: 0 potassium chloride 10 mEq tablet extended release 10 meq PO QAM RF: 0 ondansetron 8 mg tablet,disintegrating 8 mg PO Q8 PRN (Reason: Nausea) RF: 0 lithium carbonate 600 mg capsule 600 mg PO HS RF: 0 docusate sodium [Colace] 100 mg Capsule 100 mg PO BID RF: 0 topiramate 50 mg tablet 50 mg PO BID RF: 0 simethicone 1 tab PO 5XD PRN (Reason: Gastric Reflux) RF: 0 Risperdal Consta 25 mg/2 mL Syringe See Rx Instructions .ROUTE .COMPLEX RF: 0 furosemide 40 mg tablet See Rx Instructions .ROUTE .COMPLEX RF: 0 metformin 500 mg tablet 500 mg PO BIDM RF: 0 gabapentin 600 mg tablet 600 mg PO TID RF: 0 lithium carbonate 150 mg capsule 150 mg PO QAM RF: 0 spironolactone 25 mg tablet 25 mg PO QAM RF: 0 baclofen 10 mg tablet 5 mg PO BID RF: 0 lithium carbonate 300 mg capsule 300 mg PO QAM RF: 0 lisinopril 10 mg tablet 10 mg PO QAM RF: 0 gabapentin 300 mg capsule 300 mg PO TID RF: 0 polyethylene glycol 3350 17 gram/dose powder 17 g PO BID PRN (Reason: Constipation) RF: 0 ferrous sulfate 325 mg (65 mg iron) Tablet,Delayed Release (Dr/Ec) 325 mg PO QAM RF: 0 levonorgestrel-ethinyl estrad 0.15 mg-30 mcg tablets,dose pack,3 month 1 tab PO QAM RF: 0 duloxetine 60 mg capsule,delayed release(DR/EC) 90 mg PO QAM RF: 0 clozapine 200 mg tablet 100 mg PO QAM RF: 0 Myrbetriq 25 mg Tablet Extended Release 24 Hr 25 mg PO HS RF: 0 Lactobacillus acidophilus Capsule 10 mg PO QAM RF: 0 Stand-Alone Forms: [employer] [facility]/Other Patient Handouts: Eat Healthy, Snacking Healthy, Stress Relief Activities, Stress Relief Relaxation Discharge Orders: Discharge Order (Routine); Ordered 09/03/18 Ordered By: Patrica Iqbal Admission Data Admit Date/Time: 08/28/18 05:13 Attending Provider: Patrica Iqbal Admit Provider: Nathalie Wyatt Primary Care Provider: Fernando Stafford Other Providers: Patrica Iqbal Service: Psychiatry Other Interventions: Discharge Summary Assessment (RN) Last Done: 09/03/18 12:08 PSY Interdisciplinary Discharge Planning Last Done: 09/03/18 12:24 Pending Studies at Discharge: No
[2018-09-03] MEDS: cloZAPine 25 MG TAB PO SCH (12:24)
== END 2018-09-03 14:35 | disposition home or self-care (01) | DRG 885 ==
LOC: ED 22:27 → 3S 08-28 05:13

== ENCOUNTER 2018-11-04 17:09 | Inpatient (IN) ==
--- NOTE | 2018-11-04 18:46 | Emergency Department Note ---
Entered by Duke Ryan acting as a scribe for History of Present Illness General Chief complaint: Shortness of Breath/Dyspnea Stated complaint: SOB FEELS LIKE GOING TO PASS OUT Time Seen by Provider: 11/04/18 18:26 Source: patient History of Present Illness Onset (ago): day(s) 2 Location: chest Pain Consistency: + constant Maximum Pain Intensity: 5 Quality: + other (SOB) Associated symptoms: + other (Positive for an increased white cell count, leg pain, chest pain, "right eye seeping," and a rash on her right arm. Negative for cough, fever, and blood in her stools.) The patient is a 33 year old female who presents to the emergency department with complaints of constant SOB beginning two days ago. The patient states that she had lab work done a few days ago and she notes that her white cells were increased at that time. She also complains of leg pain, chest pain, right eye seeping, and a rash on her right arm. She denies any cough, fever, and blood in her stools. She reports that she does not have a history of lung problems, heart problems, and blood clots. The patient states that she takes Lasix. She notes that she does not smoke cigarettes. Home Medications Home Medications Medication Instructions Recorded Confirmed Type Lactobacillus acidophilus 10 mg PO QAM 05/23/18 11/04/18 History Myrbetriq 50 mg PO HS 05/23/18 11/06/18 History baclofen 5 mg PO BID 05/23/18 11/04/18 History clozapine 100 mg PO QAM 05/23/18 11/04/18 History duloxetine 90 mg PO QAM 05/23/18 11/04/18 History ferrous sulfate 325 mg PO QAM 05/23/18 11/04/18 History furosemide 80 mg PO BID 05/23/18 11/04/18 History gabapentin 300 mg PO TID 05/23/18 11/04/18 History gabapentin 600 mg PO TID 05/23/18 11/04/18 History lisinopril 10 mg PO QAM 05/23/18 11/04/18 History lithium carbonate 150 mg PO QAM 05/23/18 11/04/18 History lithium carbonate 300 mg PO QAM 05/23/18 11/04/18 History metformin 500 mg PO BIDM 05/23/18 11/04/18 History polyethylene glycol 3350 17 g PO BID PRN 05/23/18 11/04/18 History spironolactone 50 mg PO QAM 05/23/18 11/05/18 History Risperdal Consta 25 mg IM .EVERYOTHERWEEK 08/28/18 11/04/18 History atorvastatin 10 mg PO QAM 08/28/18 11/04/18 History clozapine 300 mg PO HS 08/28/18 11/04/18 History docusate sodium [Colace] 100 mg PO BID 08/28/18 11/04/18 History lithium carbonate 600 mg PO HS 08/28/18 11/04/18 History ondansetron 8 mg PO Q8 PRN 08/28/18 11/04/18 History potassium chloride 10 meq PO QAM 08/28/18 11/04/18 History topiramate 50 mg PO BID 08/28/18 11/04/18 History clozapine [Clozaril] 75 mg PO 1200 #90 tab 09/03/18 11/04/18 Rx gentamicin 1 drp OPR Q4 09/19/18 11/04/18 History Florastor 250 mg PO BID #20 cap 10/15/18 11/04/18 Rx simethicone 80 mg PO UD PRN 10/15/18 11/04/18 History levothyroxine 150 mcg PO DAILY 11/05/18 11/05/18 History enoxaparin [Lovenox] 150 mg SUBCUT Q12H #8 ea 11/07/18 Rx warfarin [Coumadin] 1 mg PO UD #100 tab 11/07/18 Rx warfarin [Coumadin] 2.5 mg PO UD #100 tab 11/07/18 Rx warfarin [Coumadin] 5 mg PO UD #100 tab 11/07/18 Rx Allergies Allergy/AdvReac Type Severity Reaction Status Date / Time erythromycin base Allergy Mild Unknown Verified 11/04/18 19:57 cephalexin Allergy Unknown . Verified 11/04/18 19:57 Penicillins Allergy Unknown . Verified 11/04/18 19:57 Sulfa (Sulfonamide Allergy Unknown . Verified 11/04/18 19:57 Antibiotics) Past Med/Surg History Medical History Constipation Hypokalemia Mood disorder (Acute) Anxiety (Chronic) GERD (gastroesophageal reflux disease) (Chronic) Hypothyroidism (Chronic) Depression (Chronic) Hypothyroidism (Chronic) Neurogenic bladder (Chronic) Cervicalgia (Chronic) Migraine headache (Chronic) Acute renal failure Back pain (Acute) Chronic pain associated with significant psychosocial dysfunction (Chronic) Concussion (Acute) Drug-seeking behavior (Acute) Major depressive disorder with psychotic features (Chronic) Obesity Opiate dependence (Acute) Post-concussion headache (Acute) TBI (traumatic brain injury) (Chronic) UTI (urinary tract infection) (Acute) Surgical History H/O discectomy (Resolved) H/O arthroscopy of left knee (Resolved) Family History Mother Dementia Hypothyroidism Brother Coronary heart disease Brother Diabetes Father Heart disease Other No pertinent family history Social History Preferred Language: Colombian Communication Ability: Impaired Lubrication Technician Required: No Beliefs That Will Affect Care: None marital status: Single Current Living Situation: Other Current Living Situation Comment: retirement Feels Safe at Home: Yes Safety Concerns: Feels Safe At This Time Smoking Status: Never smoker Do You Dip or Chew Tobacco: No Second Hand Exposure: Yes Hx Alcohol Use: No Hx Substance Use: No Review of Systems See HPI for pertinent positives & negatives. and A total of 10 systems reviewed and were otherwise negative Physical Exam Vital Signs Vital Signs - 24 hr 11/04/18 17:09 11/04/18 17:12 11/04/18 18:32 Temperature 98.4 F Temperature Source Oral Sepsis Recent Fever Within 48 Hours No Sepsis New/Unexplained Change in Mental Status No Sepsis Action Taken by Nursing No Action Required Pulse Rate 107 H Pulse Rate [Apical] Pulse Rhythm [Apical] Pulse Strength [Apical] Respiratory Rate 20 Respiratory Effort / Characteristics Respiratory Depth Respiratory Pattern Blood Pressure 112/74 Blood Pressure [Right Arm] Blood Pressure Mean 86 Blood Pressure Mean [Right Arm] Blood Pressure Position [Right Arm] Pulse Oximetry 98 Oxygen Delivery Method Room Air Room Air Room Air 11/04/18 20:41 11/04/18 21:54 11/04/18 23:28 Temperature Temperature Source Sepsis Recent Fever Within 48 Hours Sepsis New/Unexplained Change in Mental Status Sepsis Action Taken by Nursing Pulse Rate Pulse Rate [Apical] 98 H 97 H 97 H Pulse Rhythm [Apical] Regular Regular Pulse Strength [Apical] Normal Normal Respiratory Rate 14 22 20 Respiratory Effort / Characteristics Non-Labored Spontaneous Non-Labored Spontaneous Respiratory Depth Normal Normal Respiratory Pattern Regular Regular Blood Pressure Blood Pressure [Right Arm] 105/66 107/70 118/62 Blood Pressure Mean Blood Pressure Mean [Right Arm] 79 82 80 Blood Pressure Position [Right Arm] Lying Lying Pulse Oximetry 96 98 98 Oxygen Delivery Method Room Air Room Air Room Air General: Non-ill appearing young female in no acute distress. HEENT: Normal cephalic atraumatic. Pupils are equal round and reactive to light. Extraocular movements are intact. Oropharynx is pink with moist mucous membranes. No swelling of the mouth lips or tongue. Neck: Supple with a midline trachea. No meningeal signs or stiffness, no JVD or bruits. No Stridor. Chest: Clear to auscultation bilaterally. No wheezes or rhonchi. No increased work of breathing. Tenderness to palpation along left anterior and central chest. Heart: regular rate and rhythm. Abdomen: Soft nontender, nondistended without rebound guarding or rigidity. Extremities: No cyanosis and clubbing. No calf tenderness or asymmetry. Trace to 1+ lower extremity edema bilaterally, no redness, no warmth, no cellulitis. Spine/Back. Non tender to palpation. No CVA tenderness Skin: Good turgor without rashes. Neurologic exam: Cranial nerves two through 12 are intact. Motor and sensation are intact and symmetrical throughout. Course 1825: The patient was evaluated in room C5. A complete history and physical exam was performed. 2002: IV team is working on placing the patient's IV. 2108: I reevaluated and updated the patient. Nursing is trying to place an larger IV. 2224: Upon reevaluation, the patient is stable. I discussed the findings and the treatment plan with the patient. She expresses agreement and understanding. [facility] The patient will be evaluated for further management. Consultations Consultation #1: I reviewed the patient's case with Dr. Peña - [facility]. He will evaluate the patient for further management. Time: 22:25 Administered Medications Discontinued Medications At[facility]vastatin Calcium [facility]) [facility] [place] Stop: 12/05/18 08:59 Last Admin: 11/07/18 08:46 Dose: 10 mg Documented by: [id number] Admin: 11/06/18 11:42 Dose: 10 mg Documented by: [id number] Admin: 11/05/18 07:49 Dose: 10 mg Documented by: [id number] Baclofen (Lioresal) 5 mg PO BID [facility] Stop: 12/05/18 08:59 Last Admin: 11/07/18 08:46 Dose: 5 mg Documented by: [id number] Admin: 11/06/18 20:19 Dose: 5 mg Documented by: [id number] Admin: 11/06/18 11:42 Dose: Not Given Documented by: [id number] Admin: 11/05/18 21:58 Dose: 5 mg Documented by: [id number] Admin: 11/05/18 07:49 Dose: 5 mg Documented by: [id number] Clozapine (Clozapine) [facility] [place] Stop: 12/05/18 08:59 Last Admin: 11/07/18 08:43 Dose: 100 mg Documented by: [id number] Admin: 11/06/18 11:46 Dose: Not Given Documented by: [id number] Admin: 11/05/18 07:45 Dose: 100 mg Documented by: [id number] Clozapine (Clozaril) 75 mg PO DAILY@1200 [facility] Stop: 12/05/18 11:59 Last Admin: 11/07/18 12:12 Dose: 75 mg Documented by: [id number] Admin: 11/06/18 11:43 Dose: 75 mg Documented by: [id number] Admin: 11/05/18 11:37 Dose: 75 mg Documented by: [id number] Clozapine (Clozapine) 300 mg PO HS [facility] Stop: 12/05/18 20:59 Last Admin: 11/06/18 20:15 Dose: 300 mg Documented by: [id number] Admin: 11/05/18 22:00 Dose: 300 mg Documented by: [id number] Docusate Sodium (Colace) 100 mg PO BID [facility] Stop: 12/05/18 08:59 Last Admin: 11/07/18 08:43 Dose: 100 mg Documented by: [id number] Admin: 11/06/18 20:15 Dose: 100 mg Documented by: [id number] Admin: 11/06/18 11:42 Dose: 100 mg Documented by: [id number] Admin: 11/05/18 21:58 Dose: 100 mg Documented by: [id number] Admin: 11/05/18 07:48 Dose: 100 mg Documented by: [id number] Duloxetine HCl (Cymbalta) 90 mg PO QAM [facility] Stop: 12/05/18 08:59 Last Admin: 11/07/18 08:41 Dose: 90 mg Documented by: [id number] Admin: 11/06/18 11:42 Dose: 90 mg Documented by: [id number] Admin: 11/05/18 07:51 Dose: 90 mg Documented by: [id number] Enoxaparin Sodium (Lovenox) 150 mg SQ Q12H [facility] Stop: 12/05/18 10:29 Last Admin: 11/07/18 10:38 Dose: 150 mg Documented by: [id number] Admin: 11/06/18 22:27 Dose: 150 mg Documented by: [id number] Admin: 11/06/18 09:42 Dose: 150 mg Documented by: [id number] Admin: 11/05/18 23:09 Dose: 150 mg Documented by: [id number] Admin: 11/05/18 11:31 Dose: 150 mg Documented by: [id number] Ferrous Sulfate (Feosol) 325 mg PO QAM [facility] Stop: 12/05/18 08:59 Last Admin: 11/07/18 08:44 Dose: 325 mg Documented by: [id number] Admin: 11/06/18 11:41 Dose: 325 mg Documented by: [id number] Admin: 11/05/18 07:49 Dose: 325 mg Documented by: [id number] Furosemide (Lasix) 80 mg PO BID [facility] Stop: 12/05/18 08:59 Last Admin: 11/07/18 08:43 Dose: 80 mg Documented by: [id number] Admin: 11/06/18 20:17 Dose: 80 mg Documented by: [id number] Admin: 11/06/18 11:41 Dose: 80 mg Documented by: [id number] Admin: 11/05/18 21:59 Dose: 80 mg Documented by: [id number] Admin: 11/05/18 07:51 Dose: 80 mg Documented by: [id number] Gabapentin (Neurontin) 300 mg PO TID [facility] Stop: 12/05/18 08:59 Last Admin: 11/07/18 14:24 Dose: 300 mg Documented by: [id number] Admin: 11/07/18 09:00 Dose: 300 mg Documented by: [id number] Admin: 11/06/18 20:22 Dose: 300 mg Documented by: [id number] Admin: 11/06/18 11:48 Dose: Not Given Documented by: [id number] Admin: 11/06/18 11:41 Dose: 300 mg Documented by: [id number] Admin: 11/05/18 22:01 Dose: 300 mg Documented by: [id number] Admin: 11/05/18 12:54 Dose: 300 mg Documented by: [id number] Admin: 11/05/18 07:45 Dose: 300 mg Documented by: [id number] Gabapentin (Neurontin) 600 mg PO TID [facility] Stop: 12/05/18 08:59 Last Admin: 11/07/18 14:24 Dose: 600 mg Documented by: [id number] Admin: 11/07/18 08:44 Dose: 600 mg Documented by: [id number] Admin: 11/06/18 20:22 Dose: 600 mg Documented by: [id number] Admin: 11/06/18 11:48 Dose: Not Given Documented by: [id number] Admin: 11/06/18 11:43 Dose: 600 mg Documented by: [id number] Admin: 11/05/18 22:01 Dose: 600 mg Documented by: [id number] Admin: 11/05/18 12:54 Dose: 600 mg Documented by: [id number] Admin: 11/05/18 07:49 Dose: 600 mg Documented by: [id number] Gentamicin Sulfate (Gentamicin Sulfate 0.3%) 1 drops OPR Q4 [facility] Stop: 11/15/18 00:38 Last Admin: 11/07/18 12:13 Dose: 1 drops Documented by: [id number] Admin: 11/07/18 08:44 Dose: 1 drops Documented by: [id number] Admin: 11/07/18 04:32 Dose: 1 drops Documented by: [id number] Admin: 11/06/18 22:30 Dose: 1 drops Documented by: [id number] Admin: 11/06/18 20:12 Dose: 1 drops Documented by: [id number] Admin: 11/06/18 17:18 Dose: 1 drops Documented by: [id number] Admin: 11/06/18 11:11 Dose: 1 drops Documented by: [id number] Admin: 11/06/18 09:40 Dose: 1 drops Documented by: [id number] Admin: 11/06/18 04:26 Dose: 1 drops Documented by: [id number] Admin: 11/06/18 00:04 Dose: 1 drops Documented by: [id number] Admin: 11/05/18 20:14 Dose: 1 drops Documented by: [id number] Admin: 11/05/18 15:31 Dose: 1 drops Documented by: [id number] Admin: 11/05/18 11:38 Dose: 1 drops Documented by: [id number] Admin: 11/05/18 07:51 Dose: 1 drops Documented by: [id number] Admin: 11/05/18 05:11 Dose: 1 drops Documented by: [id number] Admin: 11/05/18 01:50 Dose: 1 drops Documented by: [id number] Heparin Sodium (Porcine) (Heparin Sodium (Porcine)) Confirm Administered Dose 10,000 units .ROUTE .STK-MED ONE Stop: 11/04/18 23:18 Last Admin: 11/04/18 23:24 Dose: 8,000 units Documented by: [id number] Cosigned by: [id number] Heparin Sodium/Dextrose () 1 ea IV NOW STA; Protocol Stop: 11/04/18 22:22 Last Admin: 11/04/18 23:25 Dose: Not Given Documented by: [id number] Heparin Sodium/Dextrose (Heparin Sodium/Dextrose) Confirm Administered Dose 25,000 units IV .STK-MED ONE Stop: 11/04/18 22:33 Last Admin: 11/04/18 23:23 Dose: 1,700 units Documented by: [id number] Cosigned by: [id number] Heparin Sodium/Dextrose () 1 ea N/A NOW STA; Protocol Stop: 11/05/18 01:09 Last Admin: 11/05/18 02:07 Dose: Not Given Documented by: [id number] Heparin Sodium/Dextrose (Heparin Sodium/Dextrose) 25,000 units in 500 mls @ 32 mls/hr IV .[id number] [facility]; Protocol Stop: 12/05/18 01:44 Last Titration: 11/05/18 10:19 Dose: 0 units/hr, 0 mls/hr Documented by: [id number] Cosigned by: [id number] Titration: 11/05/18 07:13 Dose: 1,600 units/hr, 32 mls/hr Documented by: [id number] Cosigned by: [id number] Titration: 11/05/18 06:31 Dose: 1,600 units/hr, 32 mls/hr Documented by: [id number] Cosigned by: [id number] Admin: 11/05/18 01:55 Dose: 1,700 units/hr, 34 mls/hr Documented by: [id number] Cosigned by: [id number] Insulin Aspart (Novolog Flexpen) 0 units SC ACHS [facility] Stop: 12/05/18 07:29 Last Admin: 11/07/18 12:12 Dose: 2 units Documented by: [id number] Cosigned by: [id number] Admin: 11/07/18 08:50 Dose: 6 units Documented by: [id number] Cosigned by: [id number] Admin: 11/06/18 20:27 Dose: Not Given Documented by: [id number] Cosigned by: [id number] Admin: 11/06/18 17:19 Dose: 3 units Documented by: [id number] Cosigned by: [id number] Admin: 11/06/18 11:29 Dose: Not Given Documented by: [id number] Cosigned by: [id number] Admin: 11/06/18 09:40 Dose: Not Given Documented by: [id number] Cosigned by: [id number] Admin: 11/05/18 22:05 Dose: Not Given Documented by: [id number] Cosigned by: [id number] Admin: 11/05/18 17:07 Dose: 7 units Documented by: [id number] Cosigned by: [id number] Admin: 11/05/18 12:54 Dose: 5 units Documented by: [id number] Cosigned by: [id number] Admin: 11/05/18 07:56 Dose: 5 units Documented by: [id number] Cosigned by: [id number] Insulin Glargine (Lantus Solostar Pen) 0 - 12 units SC BID [facility] Stop: 12/05/18 08:59 Last Admin: 11/07/18 08:50 Dose: 6 units Documented by: [id number] Cosigned by: [id number] Admin: 11/06/18 20:29 Dose: 4 units Documented by: [id number] Cosigned by: [id number] Admin: 11/06/18 09:44 Dose: 4 units Documented by: [id number] Cosigned by: [id number] Admin: 11/05/18 22:06 Dose: 4 units Documented by: [id number] Cosigned by: [id number] Admin: 11/05/18 07:52 Dose: Not Given Documented by: [id number] Cosigned by: [id number] Ioversol (Optiray 320 125ml) 116 ml IV ONCE PRN PRN Reason: Interaction Checking Stop: 11/08/18 21:42 Last Admin: 11/04/18 21:44 Dose: 116 ml Documented by: [id number] Lactobacillus Acidophilus (Floranex) 4 tab PO [facility] Stop: 12/05/18 08:59 Last Admin: 11/07/18 08:45 Dose: 4 tab Documented by: [id number] Admin: 11/06/18 11:41 Dose: 4 tab Documented by: [id number] Admin: 11/05/18 07:47 Dose: 4 tab Documented by: [id number] Levothyroxine Sodium (Levothyroxine Sodium) [facility] Stop: 12/05/18 06:29 Last Admin: 11/05/18 07:44 Dose: 137 mcg Documented by: [id number] Levothyroxine Sodium (Synthroid) [facility] Stop: 12/06/18 06:29 Last Admin: 11/07/18 05:51 Dose: 150 mcg Documented by: [id number] Admin: 11/06/18 05:37 Dose: 150 mcg Documented by: [id number] Lisinopril (Zestril) 10 mg PO [facility] Stop: 12/05/18 08:59 Last Admin: 11/07/18 08:44 Dose: 10 mg Documented by: [id number] Admin: 11/06/18 11:41 Dose: 10 mg Documented by: [id number] Admin: 11/05/18 07:47 Dose: 10 mg Documented by: [id number] [place] Carbonate ([place] Carbonate) 450 mg PO [facility] Stop: 12/05/18 08:59 Last Admin: 11/07/18 08:42 Dose: 450 mg Documented by: [id number] Admin: 11/06/18 11:43 Dose: 450 mg Documented by: [id number] Admin: 11/05/18 07:46 Dose: 450 mg Documented by: [id number] [place] Carbonate ([place] Carbonate) 600 mg PO [facility] Stop: 12/05/18 20:59 Last Admin: 11/06/18 20:20 Dose: 600 mg Documented by: [id number] Admin: 11/05/18 21:59 Dose: 600 mg Documented by: [id number] Mirabegron (Myrbetriq Er) 50 mg PO [facility] Stop: 12/05/18 20:59 Last Admin: 11/06/18 20:21 Dose: 50 mg Documented by: [id number] Admin: 11/05/18 22:01 Dose: 50 mg Documented by: [id number] Miscellaneous (Lovenox Teaching Kit) 1 ea N/A PRN PRN PRN Reason: Lovenox Teaching Stop: 12/05/18 10:02 Last Admin: 11/05/18 15:06 Dose: 1 ea Documented by: [id number] Morphine Sulfate (Morphine Sulfate) 2 mg IV NOW STA Stop: 11/04/18 22:24 Last Admin: 11/04/18 23:23 Dose: 2 mg Documented by: [id number] Morphine Sulfate (Morphine Sulfate) 2 mg IV Q4H PRN PRN Reason: Severe Pain Stop: 11/19/18 00:46 Last Admin: 11/05/18 20:11 Dose: 2 mg Documented by: [id number] Admin: 11/05/18 15:29 Dose: 2 mg Documented by: [id number] Admin: 11/05/18 08:19 Dose: 2 mg Documented by: [id number] Admin: 11/05/18 01:50 Dose: 2 mg Documented by: [id number] Pneumococcal Polyvalent Vaccine (Pneumovax-23) 25 mcg IM .ONCE ONE Stop: 11/05/18 06:16 Last Admin: 11/05/18 07:57 Dose: Not Given Documented by: [id number] Polyethylene Glycol (Miralax Powder Packet) 17 gm PO BID PRN PRN Reason: Constipation Stop: 12/05/18 00:47 Last Admin: 11/05/18 18:27 Dose: 17 gm Documented by: [id number] Potassium Chloride (Klor-Con M10) 10 meq PO QAM [facility] Stop: 12/05/18 08:59 Last Admin: 11/07/18 08:44 Dose: 10 meq Documented by: [id number] Admin: 11/06/18 11:43 Dose: 10 meq Documented by: [id number] Admin: 11/05/18 07:48 Dose: 10 meq Documented by: [id number] Saccharomyces Boulardii (Florastor) 250 mg PO BID [facility] Stop: 12/05/18 08:59 Last Admin: 11/07/18 08:43 Dose: 250 mg Documented by: [id number] Admin: 11/06/18 20:16 Dose: 250 mg Documented by: [id number] Admin: 11/06/18 11:41 Dose: 250 mg Documented by: [id number] Admin: 11/05/18 21:57 Dose: 250 mg Documented by: [id number] Admin: 11/05/18 07:46 Dose: 250 mg Documented by: [id number] Spironolactone (Aldactone) 25 mg PO QAM [facility] Stop: 12/05/18 08:59 Last Admin: 11/05/18 07:47 Dose: 25 mg Documented by: [id number] Spironolactone (Aldactone) 50 mg PO QAM [facility] Stop: 12/06/18 08:59 Last Admin: 11/07/18 08:44 Dose: 50 mg Documented by: [id number] Admin: 11/06/18 11:40 Dose: 50 mg Documented by: [id number] Topiramate (Topamax) 50 mg PO BID [facility] Stop: 12/05/18 08:59 Last Admin: 11/07/18 09:00 Dose: 50 mg Documented by: [id number] Admin: 11/06/18 20:23 Dose: 50 mg Documented by: [id number] Admin: 11/06/18 11:41 Dose: 50 mg Documented by: [id number] Admin: 11/05/18 22:00 Dose: 50 mg Documented by: [id number] Admin: 11/05/18 07:47 Dose: 50 mg Documented by: [id number] Warfarin Sodium (Coumadin) 7.5 mg PO DAILY@1600 [facility] Stop: 12/05/18 15:59 Last Admin: 11/06/18 17:18 Dose: 7.5 mg Documented by: [id number] Admin: 11/05/18 15:32 Dose: 7.5 mg Documented by: [id number] Medical Decision Making Differential Diagnosis Differential diagnoses include: pneumonia, CHF, cardiac disease, PE, and electrolyte/metabolic abnormalities. Medical Records Attestation: I reviewed the patient's medical records. Home Medications Current Medication List: was personally reviewed by me Laboratory Data Attestation: I reviewed the patient's lab results. Result diagrams: 11/07/18 06:31 11/07/18 06:31 Lab Results 11/04/18 11/04/18 11/04/18 Range/Units 20:03 20:03 20:03 WBC 13.76 H (4.8-10.8) K/uL RBC 4.19 L (4.2-5.4) M/uL Hgb 11.9 L (12.0-16.0) g/dL Hct 36.9 L (37-47) % MCV 88.1 (80-100) fL MCH 28.4 (25-34) pg MCHC 32.2 (32-36) g/dL RDW Std Deviation 53.3 H (36.4-46.3) fL RDW Coeff of Manohar 16.7 H (11.5-14.5) % Plt Count 282 (130-400) K/uL MPV 9.2 (7.4-10.4) fL Immature Gran % (Auto) 0.4 % Neut % (Auto) 76.9 % Lymph % (Auto) 15.9 % [place] % (Auto) 6.5 % Eos % (Auto) 0.1 % Baso % (Auto) 0.2 % Immature Gran # (Auto) 0.06 H (0.00-0.02) K/uL Neut # (Auto) 10.58 H (1.4-6.5) K/uL Lymph # (Auto) 2.19 (1.2-3.4) K/uL [place] # (Auto) 0.89 H (0.11-0.59) K/uL Eos # (Auto) 0.01 (0-0.5) K/uL Baso # (Auto) 0.03 (0-0.2) K/uL Polychromasia 1+ PT (9.0-12.0) Seconds INR (0.9-1.1) APTT (21.0-31.0) Seconds PTT Ratio D-Dimer (0-500) ug/L FEU Sodium 139 (136-145) mmol/L Potassium 3.5 (3.5-5.1) mmol/L Chloride 106 (98-107) mmol/L Carbon Dioxide 26 (21-32) mmol/L Anion Gap 7.0 (3-11) BUN 12 (7-18) mg/dl Creatinine 0.83 (0.6-1.2) mg/dl Est Cr Clr Drug Dosing Not Reportable Est GFR ( Amer) 105.9 Est GFR (Non-Af Amer) 91.4 BUN/Creatinine Ratio 14.2 (10-20) Glucose 102 H (70-99) mg/dl Calcium 8.1 L (8.5-10.1) mg/dl Total Bilirubin 0.3 (0.2-1) mg/dl AST 29 (15-37) U/L ALT 39 (12-78) U/L Alkaline Phosphatase 81 (45-117) U/L Troponin I < 0.015 (0-0.045) ng/ml Total Protein 6.7 (6.4-8.2) gm/dl Albumin 2.8 L (3.4-5.0) gm/dl Globulin 3.9 (2.5-4.0) gm/dl Albumin/Globulin Ratio 0.7 L (0.9-2) Lipase 118 (73-393) U/L Homocysteine (<10.4) UMOL/L HCG, Qual Negative (Negative) [place] (0.6-1.2) mmol/L 11/04/18 11/04/18 11/04/18 Range/Units 20:03 20:03 20:03 WBC (4.8-10.8) K/uL RBC (4.2-5.4) M/uL Hgb (12.0-16.0) g/dL Hct (37-47) % MCV (80-100) fL MCH (25-34) pg MCHC (32-36) g/dL RDW Std Deviation (36.4-46.3) fL RDW Coeff of Manohar (11.5-14.5) % Plt Count (130-400) K/uL MPV (7.4-10.4) fL Immature Gran % (Auto) % Neut % (Auto) % Lymph % (Auto) % [place] % (Auto) % Eos % (Auto) % Baso % (Auto) % Immature Gran # (Auto) (0.00-0.02) K/uL Neut # (Auto) (1.4-6.5) K/uL Lymph # (Auto) (1.2-3.4) K/uL [place] # (Auto) (0.11-0.59) K/uL Eos # (Auto) (0-0.5) K/uL Baso # (Auto) (0-0.2) K/uL Polychromasia PT 9.3 (9.0-12.0) Seconds INR 0.9 (0.9-1.1) APTT 27.0 (21.0-31.0) Seconds PTT Ratio 1.0 D-Dimer 1260 H* (0-500) ug/L FEU Sodium (136-145) mmol/L Potassium (3.5-5.1) mmol/L Chloride (98-107) mmol/L Carbon Dioxide (21-32) mmol/L Anion Gap (3-11) BUN (7-18) mg/dl Creatinine (0.6-1.2) mg/dl Est Cr Clr Drug Dosing Est GFR ( Amer) Est GFR (Non-Af Amer) BUN/Creatinine Ratio (10-20) Glucose (70-99) mg/dl Calcium (8.5-10.1) mg/dl Total Bilirubin (0.2-1) mg/dl AST (15-37) U/L ALT (12-78) U/L Alkaline Phosphatase (45-117) U/L Troponin I (0-0.045) ng/ml Total Protein (6.4-8.2) gm/dl Albumin (3.4-5.0) gm/dl Globulin (2.5-4.0) gm/dl Albumin/Globulin Ratio (0.9-2) Lipase (73-393) U/L Homocysteine (<10.4) UMOL/L HCG, Qual (Negative) [place] 0.3 L (0.6-1.2) mmol/L 11/04/18 Range/Units 22:58 WBC (4.8-10.8) K/uL RBC (4.2-5.4) M/uL Hgb (12.0-16.0) g/dL Hct (37-47) % MCV (80-100) fL MCH (25-34) pg MCHC (32-36) g/dL RDW Std Deviation (36.4-46.3) fL RDW Coeff of Manohar (11.5-14.5) % Plt Count (130-400) K/uL MPV (7.4-10.4) fL Immature Gran % (Auto) % Neut % (Auto) % Lymph % (Auto) % [place] % (Auto) % Eos % (Auto) % Baso % (Auto) % Immature Gran # (Auto) (0.00-0.02) K/uL Neut # (Auto) (1.4-6.5) K/uL Lymph # (Auto) (1.2-3.4) K/uL [place] # (Auto) (0.11-0.59) K/uL Eos # (Auto) (0-0.5) K/uL Baso # (Auto) (0-0.2) K/uL Polychromasia PT (9.0-12.0) Seconds INR (0.9-1.1) APTT (21.0-31.0) Seconds PTT Ratio D-Dimer (0-500) ug/L FEU Sodium (136-145) mmol/L Potassium (3.5-5.1) mmol/L Chloride (98-107) mmol/L Carbon Dioxide (21-32) mmol/L Anion Gap (3-11) BUN (7-18) mg/dl Creatinine (0.6-1.2) mg/dl Est Cr Clr Drug Dosing Est GFR ( Amer) Est GFR (Non-Af Amer) BUN/Creatinine Ratio (10-20) Glucose (70-99) mg/dl Calcium (8.5-10.1) mg/dl Total Bilirubin (0.2-1) mg/dl AST (15-37) U/L ALT (12-78) U/L Alkaline Phosphatase (45-117) U/L Troponin I (0-0.045) ng/ml Total Protein (6.4-8.2) gm/dl Albumin (3.4-5.0) gm/dl Globulin (2.5-4.0) gm/dl Albumin/Globulin Ratio (0.9-2) Lipase (73-393) U/L Homocysteine 6.8 (<10.4) UMOL/L HCG, Qual (Negative) [place] (0.6-1.2) mmol/L Imaging Data Radiologist's Impression: Radiology results as stated below per my review and the radiologist's interpretation: XR chest 1V portable FINDINGS: Cardiomediastinal silhouette normal. Low lung volumes with hypoventilatory changes. No focal opacity. No large effusion or pneumothorax. Osseous structures normal. Upper abdomen normal. IMPRESSION: 1. Low lung volumes with hypoventilatory changes. Lung volumes are similar to prior. Electronically signed by: Cale Quintanilla M.D. 11/04/2018 7:[address] angio chest PE protocol FINDINGS: Dog Food Dough Mixer topogram: Orthopedic hardware. Pulmonary vasculature: The study is suboptimal for the assessment of the pulmonary vascular tree secondary to timing of the contrast bolus and respiratory motion artifact. Acute pulmonary emboli in segmental and subsegmental pulmonary arteries of the bilateral lower lobes. Few emboli also suspected to segmental branches in the lingula. Main pulmonary artery is not enlarged. No flattening of the interventricular septum. No intracardiac filling defect. No reflux of contrast into the hepatic veins. Remaining chest: Soft tissues: Normal thyroid and thoracic inlet. No axillary, supraclavicular, mediastinal, or hilar lymphadenopathy. Normal aorta. Normal heart size. Trace bilateral pleural effusions. Hepatic steatosis. Lungs and airways: No pneumothorax. Central airways patent. Pulmonary arteries are not significantly enlarged relative to adjacent bronchi. No interlobular septal thickening. Minimal dependent changes likely atelectasis. Respiratory motion artifact degrades evaluation of the lung parenchyma moderately limiting diagnostic sensitivity. Musculoskeletal: Normal osseous structures. IMPRESSION: 1. Acute bilateral segmental and subsegmental pulmonary emboli in the lower lobes and minimal involvement of the lingula. No CT evidence of right heart strain at this time. 2. Trace bilateral pleural effusions. The report will be called/faxed according to standard departmental protocol for a critical finding. Electronically signed by: aCle Quintanilla M.D. 11/04/2018 10:03 PM ECG Data Attestation: I personally reviewed and interpreted this ECG as follows: Indication: SOB/dyspnea Rate (beats per minute): 81 Rhythm: normal sinus Findings: + nonspecific-ST abn; no PAC, no PVC, no ST depression and no ST elevation Comparison ECG Date: from (10/15/2018) Change: no significant change Additional Comments: No significant T wave flattening. Blood Pressure Blood Pressure Findings: Normal blood pressure Blood Pressure Disposition: did not require urgent referral MDM Narrative This patient comes in as described above. She has multiple different complaints she has had some chest pain in her left chest and centrally and some shortness of breath. She does have some lower extremity edema. She is complaining knee pain anteriorly as well. She is afebrile. Denies any trauma. IV access established and multiple blood testing was obtained I reviewed her old chart. She does have multiple medical problems and has been here before for various complaints. EKG chest x-ray was also obtained. EKG does not suggest acute coronary syndrome or arrhythmia. She has no significant electrolyte or metabolic abnormalities. She was noted to have an elevated d-dimer and later this I did do a chest CT she does have pulmonary emboli. I did discuss case with Dr. Peña. Given her obesity he did want to start her on IV heparin. I did order this as well as coagulation panel given her young age. She will be admitted for further treatment and evaluation. Impression & Plan Pulmonary embolism, Chest pain, Pain in right knee, Dyspnea Discharge Plan Visit Data *Final* Discharge Date/Time: 11/05/18 00:25 Chief Complaint: Shortness of Breath/Dyspnea Stated Complaint: SOB FEELS LIKE GOING TO PASS OUT ED Provider: Colton Strickland Discharge Problem: Pulmonary embolism, Chest pain, Pain in right knee, Dyspnea Patient Disposition: Admitted As Inpatient Discharge Instructions Interventions: ED Discharge Assessment Last Done: 11/05/18 00:25 The scribe's documentation has been prepared under my direction and personally reviewed by me in its entirety. I confirm that the note above accurately reflects all work, treatment, procedures, and medical decision making performed by me.
--- NOTE | 2018-11-04 19:20 | XRay Report ---
XR chest 1V portable CLINICAL HISTORY: 33 years-old Female presenting with Chest Pain. TECHNIQUE: Portable upright AP view of the chest was obtained. COMPARISON: 10/15/2018. FINDINGS: Cardiomediastinal silhouette normal. Low lung volumes with hypoventilatory changes. No focal opacity. No large effusion or pneumothorax. Osseous structures normal. Upper abdomen normal. IMPRESSION: 1. Low lung volumes with hypoventilatory changes. Lung volumes are similar to prior. Electronically signed by: Cale Quintanilla M.D. 11/04/2018 7:18 PM
[2018-11-04 20:40] LABS: Pregnancy Test, Serum Negative (Negative)
[2018-11-04 20:43] LABS: Alanine Aminotransferase 39 U/L (12-78); Albumin Level 2.8 gm/dl (3.4-5.0); Aspartate Aminotransferase 29 U/L (15-37); BUN Creatinine Ratio 14.2 (10-20); Blood Urea Nitrogen 12 mg/dl (7-18); Calcium 8.1 mg/dl (8.5-10.1); Carbon Dioxide 26 mmol/L (21-32); Chloride 106 mmol/L (98-107); Est GFR (African American) 105.9; Est GFR (Non-African American) 91.4; Glucose 102 mg/dl (70-99); Potassium 3.5 mmol/L (3.5-5.1); Sodium 139 mmol/L (136-145)
[2018-11-04 20:44] LABS: Basophils # (auto) 0.03 K/uL (0-0.2); Basophils % (auto) 0.2 %; Eosinophils # (auto) 0.01 K/uL (0-0.5); Eosinophils % (auto) 0.1 %; Hematocrit (blood only) 36.9 % (37-47); Hemoglobin 11.9 g/dL (12.0-16.0); Immature Granulocytes # (auto) 0.06 K/uL (0.00-0.02); Immature Granulocytes % (auto) 0.4 %; Lymphocytes # (auto) 2.19 K/uL (1.2-3.4); Lymphocytes % (auto) 15.9 %; Mean Corpuscular Hgb Conc 32.2 g/dL (32-36); Mean Corpuscular Volume 88.1 fL (80-100); Mean Platelet Volume 9.2 fL (7.4-10.4); Monocytes # (auto) 0.89 K/uL (0.11-0.59); Monocytes % (auto) 6.5 %; Neutrophils # (auto) 10.58 K/uL (1.4-6.5); Neutrophils % (auto) 76.9 %; Platelet Count 282 K/uL (130-400); Polychromasia 1+; RDW Coefficient of Variation 16.7 % (11.5-14.5); RDW Standard Deviation 53.3 fL (36.4-46.3); Red Blood Count 4.19 M/uL (4.2-5.4); White Blood Count 13.76 K/uL (4.8-10.8)
[2018-11-04 20:48] LABS: Albumin Globulin Ratio 0.7 (0.9-2); Alkaline Phosphatase 81 U/L (45-117); Bilirubin,Total 0.3 mg/dl (0.2-1); Globulin 3.9 gm/dl (2.5-4.0); Total Protein 6.7 gm/dl (6.4-8.2); Troponin I < 0.015 ng/ml (0-0.045)
[2018-11-04 20:59] LABS: D Dimer 1260 ug/L FEU (0-500)
[2018-11-04] MEDS ORDERED: OPTIRAY 320 125ml IV PRN (21:43)
--- NOTE | 2018-11-04 22:05 | CT Scan Report ---
CT angio chest PE protocol CLINICAL HISTORY: 33 years-old Female presenting with shortness of breath, clinical concern for pulmo nary embolus. TECHNIQUE: Multidetector CT angiography of the chest was performed after administration of intravenou s contrast. 3-D volumetric and/or maximum intensity projection (MIP) images were subsequently reconst ructed for review. IV contrast: 116 mL of Optiray 320. One or more dose lowering techniques were used consistent with the principles of ALARA (as low as reasonably achievable), including automatic expos ure control, mA or kV adjustment to individual patient size, and/or use of iterative reconstruction. COMPARISON: 05/23/2018. CT DOSE (mGy.cm): The estimated cumulative dose is 689.88 mGy.cm. FINDINGS: Shelf Filler topogram: Orthopedic hardware. Pulmonary vasculature: The study is suboptimal for the assessment of the pulmonary vascular tree secondary to timing of the contrast bolus and respiratory motion artifact. Acute pulmonary emboli in segmental and subsegmental pulmonary arteries of the bilateral lower lobes. Few emboli also suspected to segmental branches in t he lingula. Main pulmonary artery is not enlarged. No flattening of the interventricular septum. No i ntracardiac filling defect. No reflux of contrast into the hepatic veins. Remaining chest: Soft tissues: Normal thyroid and thoracic inlet. No axillary, supraclavicular, mediastinal, or hilar lymphadenopathy. Normal aorta. Normal heart size. Trace bilateral pleural effusions. Hepatic steatosi s. Lungs and airways: No pneumothorax. Central airways patent. Pulmonary arteries are not significantly enlarged relative to adjacent bronchi. No interlobular septal thickening. Minimal dependent changes l ikely atelectasis. Respiratory motion artifact degrades evaluation of the lung parenchyma moderately limiting diagnostic sensitivity. Musculoskeletal: Normal osseous structures. IMPRESSION: 1. Acute bilateral segmental and subsegmental pulmonary emboli in the lower lobes and minimal involv ement of the lingula. No CT evidence of right heart strain at this time. 2. Trace bilateral pleural effusions. The report will be called/faxed according to standard departmental protocol for a critical finding. Electronically signed by: Cale Quintanilla M.D. 11/04/2018 10:03 PM
[2018-11-04] MEDS ORDERED: MoRPHine SULFATE 2 MG/ML CARP IV STA (22:23)
[2018-11-04] MEDS ORDERED: HEPARIN 25000 UNIT/500 ML D5W IV ONE (22:32)
[2018-11-04] MEDS ORDERED: HEPARIN SOD 5,000 UNIT/0.5 ML VIAL ONE (23:17)
--- NOTE | 2018-11-04 23:28 | History & Physical Report ---
Date of Service November 04, 2018 Assessment & Plan (1) Pulmonary embolism: (present on admission) Acute bilateral segmental/subsegmental pulmonary emboli. Risk factors include oral contraceptive and relative inactivity. Nevertheless, may be prudent to check hypercoagulable evaluation and studies were drawn in the ED prior anticoagulation. Check venous duplex to assess lower extremities for DVT. Follow-up for IV heparin for anticoagulation initially due to patient's BMI. Probably would not be a candidate for DOAC because of BMI greater than 50. Therefore, warfarin therapy may be best option. Patient is having significant pleuritic chest pain, relieved by morphine in ED. Must be careful with narcotic analgesics because of history of narcotic addiction in past. Utilize narcotics for shortest possible time. Discontinue oral contraceptive. (2) GERD (gastroesophageal reflux disease): Continue PPI. (3) Hypothyroidism: Continue levothyroxine. (4) Opiate dependence: History of opiate dependence. Use narcotics only when absolutely necessary for the shortest possible. Of time. (5) Depression: Continue usual meds. (6) Neurogenic bladder: Continue mirabegron + straight caths. (7) Diabetes mellitus type 2, controlled: Hold metformin during hospital stay. Lantus/NovoLog per protocol. (8) Abdominal pain: Left-sided abdominal tenderness without rebound or guarding. Constipated- reports no BM x 7 days. Bowel regimen as ordered. Further evaluation if ongoing concerns. (9) DVT prophylaxis: Not indicated due to acute VTE. (10) Discharge planning issues: Anticipated discharge to home. Internal Medicine follow-up with Dr. Stafford. History of Present Illness Chief Complaint: chest pain and SOB Primary Care Provider: Fernando Stafford DO 33-year-old female followed by Dr. Stafford. History of multiple medical problems as noted below. Presented to the ED complaining of dyspnea that started about 1 week ago. Dyspnea was severe enough that she noted difficulty shopping. Subsequently developed left pleuritic chest pain. Pain was fairly severe and persistent. Came to ED for evaluation. Chest pain improved after receiving IV morphine. Experiencing right knee pain for some time is been relatively inactive. Uses oral contraceptive. Non-smoker. Allergies Allergy/AdvReac Type Severity Reaction Status Date / Time erythromycin base Allergy Mild Unknown Verified 11/04/18 19:57 cephalexin Allergy Unknown . Verified 11/04/18 19:57 Penicillins Allergy Unknown . Verified 11/04/18 19:57 Sulfa (Sulfonamide Allergy Unknown . Verified 11/04/18 19:57 Antibiotics) Home Medications Home Medications Medication Instructions Recorded Confirmed Type Lactobacillus acidophilus 10 mg PO QAM 05/23/18 11/04/18 History Myrbetriq 50 mg PO HS 05/23/18 11/04/18 History baclofen 5 mg PO BID 05/23/18 11/04/18 History clozapine 100 mg PO QAM 05/23/18 11/04/18 History duloxetine 90 mg PO QAM 05/23/18 11/04/18 History ferrous sulfate 325 mg PO QAM 05/23/18 11/04/18 History furosemide 80 mg PO BID 05/23/18 11/04/18 History gabapentin 300 mg PO TID 05/23/18 11/04/18 History gabapentin 600 mg PO TID 05/23/18 11/04/18 History lisinopril 10 mg PO QAM 05/23/18 11/04/18 History lithium carbonate 150 mg PO QAM 05/23/18 11/04/18 History lithium carbonate 300 mg PO QAM 05/23/18 11/04/18 History metformin 500 mg PO BIDM 05/23/18 11/04/18 History polyethylene glycol 3350 17 g PO BID PRN 05/23/18 11/04/18 History spironolactone 25 mg PO QAM 05/23/18 11/04/18 History Risperdal Consta 25 mg IM .EVERYOTHERWEEK 08/28/18 11/04/18 History atorvastatin 10 mg PO QAM 08/28/18 11/04/18 History clozapine 300 mg PO HS 08/28/18 11/04/18 History docusate sodium [Colace] 100 mg PO BID 08/28/18 11/04/18 History levothyroxine 137 mcg PO QAM 08/28/18 11/04/18 History lithium carbonate 600 mg PO HS 08/28/18 11/04/18 History ondansetron 8 mg PO Q8 PRN 08/28/18 11/04/18 History potassium chloride 10 meq PO QAM 08/28/18 11/04/18 History topiramate 50 mg PO BID 08/28/18 11/04/18 History clozapine [Clozaril] 75 mg PO 1200 #90 tab 09/03/18 11/04/18 Rx gentamicin 1 drp OPR Q4 09/19/18 11/04/18 History Saccharomyces boulardii [Florastor] 250 mg PO BID #20 cap 10/15/18 11/04/18 Rx simethicone 80 mg PO UD PRN 10/15/18 11/04/18 History levonorgestrel-ethinyl estrad See Rx Instructions .ROUTE .COMPLEX 11/05/18 11/05/18 History Past Med/Surg History Medical History Constipation Hypokalemia Mood disorder (Acute) Anxiety (Chronic) GERD (gastroesophageal reflux disease) (Chronic) Hypothyroidism (Chronic) Depression (Chronic) Hypothyroidism (Chronic) Neurogenic bladder (Chronic) Cervicalgia (Chronic) Migraine headache (Chronic) Acute renal failure Back pain (Acute) Chronic pain associated with significant psychosocial dysfunction (Chronic) Concussion (Acute) Drug-seeking behavior (Acute) Major depressive disorder with psychotic features (Chronic) Obesity Opiate dependence (Acute) Post-concussion headache (Acute) TBI (traumatic brain injury) (Chronic) UTI (urinary tract infection) (Acute) Surgical History H/O discectomy (Resolved) H/O arthroscopy of left knee (Resolved) Family History Mother Dementia Hypothyroidism Brother Coronary heart disease Brother Diabetes Father Heart disease Other No pertinent family history Social History Preferred Language: Citizen Of [place] Communication Ability: Effective 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 Beliefs That Will Affect Care: None Current Living Situation: Other Current Living Situation Comment: [facility] Feels Safe at Home: Yes Safety Concerns: Feels Safe At This Time Smoking Status: Never smoker Do You Dip or Chew Tobacco: No Second Hand Exposure: Yes Hx Alcohol Use: No Hx Substance Use: No Review of Systems Constitutional: + weight gain; no fever Eyes: no diplopia and no worsening vision Ear, Nose, Mouth, Throat: no nasal congestion, no sinus pain/pressure and no sore throat Respiratory: as per Subjective / HPI Cardiovascular: as per Subjective / HPI Gastrointestinal: + constipation; no nausea, no vomiting, no diarrhea/loose stools, no blood in stools and no melena Genitourinary: + difficulty urinating (performs straight caths at home); no dysuria and no hematuria Musculoskeletal: + back pain and + joint pain; no myalgia Integumentary: no rash and no new lesions Neurologic: no headache(s) Endocrine: + polydipsia and + polyuria Hematologic / Lymphatic: + easy bruising; no easy bleeding and no lymphadenopathy Physical Exam Constitutional: WD/WN, vitals as above no acute distress and + uncomfortable Eyes: PERRL, conjunctivae normal, anicteric sclerae ENMT: external ear and nose normal, oropharynx normal Neck: trachea midline, no thyromegaly Respiratory: normal respiratory effort, lungs clear to auscultation Cardiovascular: Rate/Rhythm: regular rate Heart Sounds: + murmur (II/ sys murmur at base); no gallop and no cardiac rub Vessels: no JVD Extremities: normal capillary refill, + calf tenderness (bilat) and + edema (1+ pretibial) Gastrointestinal (Abdomen): Inspection/Auscultation: normal bowel sounds Percussion/Palpation: + abdomen tender (moderate left-sided tenderness without rebound or guarding) and abdomen soft Musculoskeletal: Head/Neck/Chest: neck supple Extremities: strength 5/5 throughout; no cyanosis and no clubbing Skin: no rashes, warm and dry Neurologic: PERRL, EOMI no facial palsy no dysarthria or aphasia patellar DTR's 1/2 bilat Psychiatric: Orientation: alert and oriented x 3 Affect: + anxious affect Lymphatic: no cervical lymphadenopathy Results & Data Vital Signs (Past 12 Hours) Vital Signs Temp Pulse Pulse Resp BP BP Pulse Ox 11/04/18 21:54 97 H 22 107/70 98 11/04/18 20:41 98 H 14 105/66 96 11/04/18 17:12 36.9 C 107 H 20 112/74 98 Laboratory Results Laboratory Results - last 24 hr 11/04/18 11/04/18 11/04/18 20:03 20:03 20:03 WBC 13.76 H RBC 4.19 L Hgb 11.9 L Hct 36.9 L MCV 88.1 MCH 28.4 MCHC 32.2 RDW Std Deviation 53.3 H RDW Coeff of Manohar 16.7 H Plt Count 282 MPV 9.2 Immature Gran % (Auto) 0.4 Neut % (Auto) 76.9 Lymph % (Auto) 15.9 [place] % (Auto) 6.5 Eos % (Auto) 0.1 Baso % (Auto) 0.2 Immature Gran # (Auto) 0.06 H Neut # (Auto) 10.58 H Lymph # (Auto) 2.19 [place] # (Auto) 0.89 H Eos # (Auto) 0.01 Baso # (Auto) 0.03 Polychromasia 1+ PT INR APTT PTT Ratio D-Dimer Hexagonal Phase Confirm Protein C Activity Protein S Activity Antithrombin III Activ Factor V Leiden Mutat Factor V Leiden Interp Sodium 139 Potassium 3.5 Chloride 106 Carbon Dioxide 26 Anion Gap 7.0 BUN 12 Creatinine 0.83 Est Cr Clr Drug Dosing Not Reportable Est GFR ( Amer) 105.9 Est GFR (Non-Af Amer) 91.4 BUN/Creatinine Ratio 14.2 Glucose 102 H POC Glucose Calcium 8.1 L Total Bilirubin 0.3 AST 29 ALT 39 Alkaline Phosphatase 81 Troponin I < 0.015 Total Protein 6.7 Albumin 2.8 L Globulin 3.9 Albumin/Globulin Ratio 0.7 L Lipase 118 Homocysteine HCG, Qual Negative [place] Beta-2-GPI IgG Ab Beta-2-GPI IgA Ab Beta-2-GPI IgM Ab Anti-Cardiolipin IgG Ab Anti-Cardiolipin IgA Ab Anti-Cardiolipin IgM Ab Prothrombin Gene Mutate Prothromb Gene Comment 11/04/18 11/04/18 11/04/18 20:03 20:03 20:03 WBC RBC Hgb Hct MCV MCH MCHC RDW Std Deviation RDW Coeff of Manohar Plt Count MPV Immature Gran % (Auto) Neut % (Auto) Lymph % (Auto) [place] % (Auto) Eos % (Auto) Baso % (Auto) Immature Gran # (Auto) Neut # (Auto) Lymph # (Auto) [place] # (Auto) Eos # (Auto) Baso # (Auto) Polychromasia PT 9.3 INR 0.9 APTT 27.0 PTT Ratio 1.0 D-Dimer 1260 H* Hexagonal Phase Confirm Protein C Activity Protein S Activity Antithrombin III Activ Factor V Leiden Mutat Factor V Leiden Interp Sodium Potassium Chloride Carbon Dioxide Anion Gap BUN Creatinine Est Cr Clr Drug Dosing Est GFR ( Amer) Est GFR (Non-Af Amer) BUN/Creatinine Ratio Glucose POC Glucose Calcium Total Bilirubin AST ALT Alkaline Phosphatase Troponin I Total Protein Albumin Globulin Albumin/Globulin Ratio Lipase Homocysteine HCG, Qual [place] 0.3 L Beta-2-GPI IgG Ab Beta-2-GPI IgA Ab Beta-2-GPI IgM Ab Anti-Cardiolipin IgG Ab Anti-Cardiolipin IgA Ab Anti-Cardiolipin IgM Ab Prothrombin Gene Mutate Prothromb Gene Comment 11/04/18 11/04/18 11/05/18 22:58 22:58 05:19 WBC RBC Hgb Hct MCV MCH MCHC RDW Std Deviation RDW Coeff of Manohar Plt Count MPV Immature Gran % (Auto) Neut % (Auto) Lymph % (Auto) [place] % (Auto) Eos % (Auto) Baso % (Auto) Immature Gran # (Auto) Neut # (Auto) Lymph # (Auto) [place] # (Auto) Eos # (Auto) Baso # (Auto) Polychromasia PT INR APTT 71.7 H* PTT Ratio 2.6 D-Dimer Hexagonal Phase Confirm Pending Protein C Activity Pending Protein S Activity Pending Antithrombin III Activ Pending Factor V Leiden Mutat Pending Factor V Leiden Interp Pending Sodium Potassium Chloride Carbon Dioxide Anion Gap BUN Creatinine Est Cr Clr Drug Dosing Est GFR ( Amer) Est GFR (Non-Af Amer) BUN/Creatinine Ratio Glucose POC Glucose Calcium Total Bilirubin AST ALT Alkaline Phosphatase Troponin I Total Protein Albumin Globulin Albumin/Globulin Ratio Lipase Homocysteine Pending HCG, Qual [place] Beta-2-GPI IgG Ab Pending Beta-2-GPI IgA Ab Pending Beta-2-GPI IgM Ab Pending Anti-Cardiolipin IgG Ab Pending Anti-Cardiolipin IgA Ab Pending Anti-Cardiolipin IgM Ab Pending Prothrombin Gene Mutate Pending Prothromb Gene Comment Pending 11/05/18 07:44 WBC RBC Hgb Hct MCV MCH MCHC RDW Std Deviation RDW Coeff of Manohar Plt Count MPV Immature Gran % (Auto) Neut % (Auto) Lymph % (Auto) [place] % (Auto) Eos % (Auto) Baso % (Auto) Immature Gran # (Auto) Neut # (Auto) Lymph # (Auto) [place] # (Auto) Eos # (Auto) Baso # (Auto) Polychromasia PT INR APTT PTT Ratio D-Dimer Hexagonal Phase Confirm Protein C Activity Protein S Activity Antithrombin III Activ Factor V Leiden Mutat Factor V Leiden Interp Sodium Potassium Chloride Carbon Dioxide Anion Gap BUN Creatinine Est Cr Clr Drug Dosing Est GFR ( Amer) Est GFR (Non-Af Amer) BUN/Creatinine Ratio Glucose POC Glucose 95 Calcium Total Bilirubin AST ALT Alkaline Phosphatase Troponin I Total Protein Albumin Globulin Albumin/Globulin Ratio Lipase Homocysteine HCG, Qual [place] Beta-2-GPI IgG Ab Beta-2-GPI IgA Ab Beta-2-GPI IgM Ab Anti-Cardiolipin IgG Ab Anti-Cardiolipin IgA Ab Anti-Cardiolipin IgM Ab Prothrombin Gene Mutate Prothromb Gene Comment Diagnostic Findings PORTABLE CHEST X-RAY FINDINGS: Cardiomediastinal silhouette normal. Low lung volumes with hypoventilatory changes. No focal opacity. No large effusion or pneumothorax. Osseous structures normal. Upper abdomen normal. IMPRESSION: 1. Low lung volumes with hypoventilatory changes. Lung volumes are similar to prior. Electronically signed by: Cale Quintanilla M.D. 11/04/2018 7:18 PM CTA CHEST IMPRESSION: 1. Acute bilateral segmental and subsegmental pulmonary emboli in the lower lobes and minimal involvement of the lingula. No CT evidence of right heart strain at this time. 2. Trace bilateral pleural effusions. The report will be called/faxed according to standard departmental protocol for a critical finding. Electronically signed by: Cale Quintanilla M.D. 11/04/2018 10:03 PM ECG Additional Comments: EKG performed at 1923 reviewed and demonstrated SR at 100 / min, no acute changes. (1) Pulmonary embolism Acute cor pulmonale presence: without acute cor pulmonale Chronicity: acute Pulmonary embolism type: unspecified Qualified Code(s): I26.99 - Other pulmonary embolism without acute cor pulmonale
[2018-11-04 23:55] LABS: INR 0.9 (0.9-1.1); Prothrombin Time 9.3 Seconds (9.0-12.0)
[2018-11-05] MEDS ORDERED: ACETAMINOPHEN 325 MG TAB PO PRN (00:39)
[2018-11-05] MEDS ORDERED: POLYETHYLENE (MIRALAX) 17 GM PACK PO PRN (00:48)
[2018-11-05] MEDS ORDERED: ONDANSETRON 4 MG OD TAB PO PRN (00:48)
[2018-11-05] MEDS ORDERED: Heparin Adult STANDARD Wt-Based Dextrose 5% 25,000 units/500 mL IV SCH (01:45)
[2018-11-05] MEDS: GENTAMICIN SULFATE 0.3% OP SOLN 5 ML BTL OPR SCH ×6 (01:50→20:14)
[2018-11-05] MEDS: MoRPHine SULFATE 2 MG/ML CARP IV PRN ×4 (01:50→20:11)
[2018-11-05] MEDS ORDERED: INFLUENZA VIRUS QUAD VACCINE 0.5 ML SYR IM ONE (05:15)
[2018-11-05] MEDS ORDERED: INFLUENZA ADMINISTRATION CHARGE ONE (05:15)
[2018-11-05 06:15] LABS: Partial Thromboplastin Ratio 2.6
[2018-11-05] MEDS ORDERED: PNEUMOCOCCAL ADMINISTRATION CHARGE ONE (06:15)
[2018-11-05] MEDS ORDERED: PNEUMOCOCCAL POLYSACCHARIDES 25 MCG/0.5 ML VIAL/SYR IM ONE (06:15)
[2018-11-05 06:20] LABS: Partial Thromboplastin Time 71.7 Seconds (21.0-31.0)
[2018-11-05] MEDS ORDERED: LEVOTHYROXINE SODIUM 137 MCG TABLET PO SCH (06:30)
[2018-11-05] MEDS: cloZAPine 100 MG TAB PO SCH ×2 (07:45→22:00)
[2018-11-05] MEDS: GABAPENTIN 300 MG CAP PO SCH ×3 (07:45→22:01)
[2018-11-05] MEDS: SACCHAROMYCES BOULARDII 250 MG CAP PO SCH ×2 (07:46→21:57)
[2018-11-05] MEDS: LITHIUM CARBONATE 300 MG TAB PO SCH ×2 (07:46→21:59)
[2018-11-05] MEDS: LACTOBACILLUS ACIDOPHILUS (FLORANEX) TAB PO SCH (07:47)
[2018-11-05] MEDS: LISINOPRIL 10 MG TAB PO SCH (07:47)
[2018-11-05] MEDS: TOPIRAMATE 50 MG TAB PO SCH ×2 (07:47→22:00)
[2018-11-05] MEDS: DOCUSATE SODIUM 100 MG CAP PO SCH ×2 (07:48→21:58)
[2018-11-05] MEDS: POTASSIUM CHLORIDE 10 MEQ TABCR PO SCH (07:48)
[2018-11-05] MEDS: BACLOFEN 10 MG TAB PO SCH ×2 (07:49→21:58)
[2018-11-05] MEDS: GABAPENTIN 600 MG TAB PO SCH ×3 (07:49→22:01)
[2018-11-05] MEDS: FERROUS SULFATE 325 MG TAB PO SCH (07:49)
[2018-11-05] MEDS: ATORVASTATIN 10 MG TAB PO SCH (07:49)
[2018-11-05] MEDS: FUROSEMIDE 40 MG TAB PO SCH ×2 (07:51→21:59)
[2018-11-05] MEDS: DULOXETINE HCL 30 MG CAP PO SCH (07:51)
[2018-11-05] MEDS: INSULIN GLARGINE SOLOSTAR 100 UNITS/ML 3 ML PEN SC SCH ×2 (07:52→22:06)
[2018-11-05] MEDS: INSULIN ASPART 100 UNITS/ML 3 ML PEN SC SCH ×4 (07:56→22:05)
[2018-11-05] MEDS ORDERED: SPIRONOLACTONE 25 MG TAB PO SCH (09:00)
[2018-11-05] MEDS ORDERED: LITHIUM CARBONATE 300 MG TAB PO SCH (09:00)
--- NOTE | 2018-11-05 09:13 | Ultrasound Report ---
US venous doppler LE BI HISTORY: Dyspnea pulmonary emboli COMPARISON STUDY: None. FINDINGS: There is normal compressibility, flow, and augmentation within the bilateral lower extremit y deep venous systems. IMPRESSION: No DVT within the right or left lower extremity. Somewhat limited exam due to body habitus considerat ions. The above report was generated using voice recognition software. It may contain grammatical, syntax or spelling errors. Electronically signed by: See Vergara M.D. 11/05/2018 9:11 AM
[2018-11-05] MEDS ORDERED: LOVENOX TEACHING KIT PRN (10:03)
[2018-11-05] MEDS: ENOXAPARIN 150 MG/ML SYR SQ SCH ×2 (11:31→23:09)
[2018-11-05] MEDS: cloZAPine 25 MG TAB PO SCH (11:37)
[2018-11-05 12:45] LABS: Partial Thromboplastin Ratio 1.2; Partial Thromboplastin Time 31.3 Seconds (21.0-31.0)
--- NOTE | 2018-11-05 14:14 | Hospitalist Progress Note ---
Date of Service November 05, 2018 Assessment & Plan (1) Pulmonary embolism: Acute bilateral Pulmonary emboli: Likely due to OCPs and inactivity CTA:Acute bilateral segmental and subsegmental pulmonary emboli in the lower lobes and minimal involvement of the lingula. No CT evidence of right heart strain at this time. Trace bilateral pleural effusions. Venous Doppler:No DVT within the right or left lower extremity. Somewhat limited exam due to body habitus considerations. OCPs discontinued Hypercoagulable Work up: pending IV heparin GGT transition to therapeutic Lovenox and Coumadin Not a candidate for NOACs Monitor INR Needs to follow-up with Coumadin clinic upon discharge (2) GERD (gastroesophageal reflux disease): Continue PPI (3) Hypothyroidism: Continue levothyroxine (4) Opiate dependence: H/O Opiate dependence. Avoid Opiates as able (5) Depression: Continue home meds (6) Neurogenic bladder: Continue mirabegron, straight caths. (7) Diabetes mellitus type 2, controlled: Hold metformin Utilize Lantus/NovoLog per protocol while hospitalized (8) Abdominal pain: Abdominal pain likely due to constipation Continue bowel regimen Consider imaging studies if no resolution (9) DVT prophylaxis: On Lovenox and Coumadin (10) Discharge planning issues: Expect to discharge to detention when stable Internal Medicine follow-up with Dr. Stafford. Subjective Patient is seen and examined at bedside Complains of pleuritic chest pain, shortness of breath on exertion and constipation Denies any other complaints On IV heparin GGT Plan to transition to Lovenox and Coumadin Discussed with Dr. Young Review of Systems Review of Systems: All systems reviewed & are unremarkable except as noted in HPI & below Physical Exam Physical Exam: Physical Exam: Vitals signs as noted above General Appearance:Morbidly Obese, no apparent distress Head: normocephalic, Atraumatic Eyes: normal inspection, EOMI Neck: supple, Trachea midline Respiratory/Chest: Normal breath sounds, CTA Cardiovascular: S1, S2, No murmur Abdomen/GI:Soft, mild left lower quadrant tender, Bowel sounds present Extremities/Musculoskelatal:normal inspection, 1+B/L edema Neurologic/Psych:AAOX3, grossly no focal neurological deficits Skin: normal color, warm Results & Data Vital Signs (Past 12 Hours) Vital Signs Temp Pulse Resp BP BP Pulse Ox 11/05/18 11:42 36.7 C 98 H 19 113/79 96 11/05/18 07:34 36.7 C 89 20 111/75 96 11/05/18 03:01 36.7 C 96 H 16 121/83 96 Laboratory Results Short CBC 11/04/18 Range/Units 20:03 WBC 13.76 H (4.8-10.8) K/uL Hgb 11.9 L (12.0-16.0) g/dL Hct 36.9 L (37-47) % Plt Count 282 (130-400) K/uL BMP 11/04/18 20:03 Sodium 139 Potassium 3.5 Chloride 106 Carbon Dioxide 26 BUN 12 Creatinine 0.83 Glucose 102 H Calcium 8.1 L Cardiac Enzymes 11/04/18 Range/Units 20:03 Troponin I < 0.015 (0-0.045) ng/ml Liver Function 11/04/18 Range/Units 20:03 Total Bilirubin 0.3 (0.2-1) mg/dl AST 29 (15-37) U/L ALT 39 (12-78) U/L Alkaline Phosphatase 81 (45-117) U/L Albumin 2.8 L (3.4-5.0) gm/dl Diagnostic Findings Venous Doppler: No DVT within the right or left lower extremity. Somewhat limited exam due to body habitus considerations. (1) Pulmonary embolism Acute cor pulmonale presence: without acute cor pulmonale Chronicity: acute Pulmonary embolism type: unspecified Qualified Code(s): I26.99 - Other pulmonary embolism without acute cor pulmonale
[2018-11-05] MEDS: WARFARIN SOD 7.5 MG TAB PO SCH (15:32)
[2018-11-05] MEDS: MIRABEGRON ER 25 MG TAB PO SCH (22:01)
[2018-11-06] MEDS: GENTAMICIN SULFATE 0.3% OP SOLN 5 ML BTL OPR SCH ×7 (00:04→22:30)
[2018-11-06 03:14] LABS: Hematocrit (blood only) 39.7 % (37-47); Hemoglobin 12.5 g/dL (12.0-16.0); Mean Corpuscular Hgb Conc 31.5 g/dL (32-36); Mean Platelet Volume 8.8 fL (7.4-10.4); Platelet Count 272 K/uL (130-400); RDW Coefficient of Variation 16.6 % (11.5-14.5); RDW Standard Deviation 54.7 fL (36.4-46.3); Red Blood Count 4.41 M/uL (4.2-5.4)
[2018-11-06 03:39] LABS: Creatinine Clr Calc Pharmacy 144.3 ml/min; Est GFR (African American) 107.5; Est GFR (Non-African American) 92.7
[2018-11-06 03:43] LABS: Troponin I < 0.015 ng/ml (0-0.045)
[2018-11-06] MEDS: LEVOTHYROXINE SODIUM 150 MCG TABLET PO SCH (05:37)
[2018-11-06 06:03] LABS: Estimated Average Glucose 114 mg/dl; Hemoglobin A1C 5.6 % (4.5-5.6)
[2018-11-06 09:37] LABS: Prothrombin Time 10.3 Seconds (9.0-12.0)
[2018-11-06] MEDS: INSULIN ASPART 100 UNITS/ML 3 ML PEN SC SCH ×4 (09:40→20:27)
[2018-11-06] MEDS: ENOXAPARIN 150 MG/ML SYR SQ SCH ×2 (09:42→22:27)
[2018-11-06] MEDS: INSULIN GLARGINE SOLOSTAR 100 UNITS/ML 3 ML PEN SC SCH ×2 (09:44→20:29)
[2018-11-06] MEDS: SPIRONOLACTONE 25 MG TAB PO SCH (11:40)
[2018-11-06] MEDS: FUROSEMIDE 40 MG TAB PO SCH ×2 (11:41→20:17)
[2018-11-06] MEDS: LISINOPRIL 10 MG TAB PO SCH (11:41)
[2018-11-06] MEDS: SACCHAROMYCES BOULARDII 250 MG CAP PO SCH ×2 (11:41→20:16)
[2018-11-06] MEDS: TOPIRAMATE 50 MG TAB PO SCH ×2 (11:41→20:23)
[2018-11-06] MEDS: LACTOBACILLUS ACIDOPHILUS (FLORANEX) TAB PO SCH (11:41)
[2018-11-06] MEDS: FERROUS SULFATE 325 MG TAB PO SCH (11:41)
[2018-11-06] MEDS: GABAPENTIN 300 MG CAP PO SCH ×3 (11:41→20:22)
[2018-11-06] MEDS: ATORVASTATIN 10 MG TAB PO SCH (11:42)
[2018-11-06] MEDS: DOCUSATE SODIUM 100 MG CAP PO SCH ×2 (11:42→20:15)
[2018-11-06] MEDS: DULOXETINE HCL 30 MG CAP PO SCH (11:42)
[2018-11-06] MEDS: BACLOFEN 10 MG TAB PO SCH ×2 (11:42→20:19)
[2018-11-06] MEDS: cloZAPine 100 MG TAB PO SCH ×3 (11:42→20:15)
[2018-11-06] MEDS: GABAPENTIN 600 MG TAB PO SCH ×3 (11:43→20:22)
[2018-11-06] MEDS: POTASSIUM CHLORIDE 10 MEQ TABCR PO SCH (11:43)
[2018-11-06] MEDS: cloZAPine 25 MG TAB PO SCH (11:43)
[2018-11-06] MEDS: LITHIUM CARBONATE 300 MG TAB PO SCH ×2 (11:43→20:20)
[2018-11-06] MEDS: WARFARIN SOD 7.5 MG TAB PO SCH (17:18)
--- NOTE | 2018-11-06 17:30 | Hospitalist Progress Note ---
Date of Service November 06, 2018 Assessment & Plan (1) Pulmonary embolism: Acute bilateral Pulmonary emboli: Likely due to OCPs and inactivity CTA:Acute bilateral segmental and subsegmental pulmonary emboli in the lower lobes and minimal involvement of the lingula. No CT evidence of right heart strain at this time. Trace bilateral pleural effusions. Venous Doppler:No DVT within the right or left lower extremity. Somewhat limited exam due to body habitus considerations. OCPs discontinued Hypercoagulable Work up: pending IV heparin GGT transition to therapeutic Lovenox and Coumadin Not a candidate for NOACs due to BMI Monitor INR:1.0 Saturating well on RA Needs to follow-up with Coumadin clinic upon discharge (2) GERD (gastroesophageal reflux disease): Continue PPI (3) Hypothyroidism: Continue levothyroxine (4) Opiate dependence: H/O Opiate dependence. Avoid Opiates as able (5) Depression: Continue home meds (6) Neurogenic bladder: Continue mirabegron, straight caths. (7) Diabetes mellitus type 2, controlled: A1C:5.6 Hold metformin Utilize Lantus/NovoLog per protocol while hospitalized (8) Abdominal pain: Abdominal pain likely due to constipation Continue bowel regimen Consider imaging studies if no resolution (9) DVT prophylaxis: On Lovenox and Coumadin (10) Discharge planning issues: Expect to discharge to intermediate when stable Internal Medicine follow-up with Dr. Stafford. Subjective Patient is seen and examined at bedside Drowsy this morning but more awake later Pleuritic chest pain improved Review of Systems Review of Systems: All systems reviewed & are unremarkable except as noted in HPI & below Physical Exam Physical Exam: Physical Exam: Vitals signs as noted above General Appearance:Morbidly Obese, no apparent distress Head: normocephalic, Atraumatic Eyes: normal inspection, EOMI Neck: supple, Trachea midline Respiratory/Chest: Normal breath sounds, CTA Cardiovascular: S1, S2, No murmur Abdomen/GI:Soft, mild left lower quadrant tender, Bowel sounds present Extremities/Musculoskelatal:normal inspection, 1+B/L edema Neurologic/Psych:AAOX3, grossly no focal neurological deficits Skin: normal color, warm Results & Data Vital Signs (Past 12 Hours) Vital Signs Temp Pulse Resp BP Pulse Ox 11/06/18 11:06 37.0 C 98 H 20 126/87 97 11/06/18 07:48 36.8 C 90 20 122/69 96 Laboratory Results Short CBC 11/06/18 Range/Units 03:01 WBC 10.80 (4.8-10.8) K/uL Hgb 12.5 (12.0-16.0) g/dL Hct 39.7 (37-47) % Plt Count 272 (130-400) K/uL BMP 11/06/18 03:01 Creatinine 0.82 Cardiac Enzymes 11/05/18 11/06/18 Range/Units 21:44 03:01 Troponin I < 0.015 < 0.015 (0-0.045) ng/ml (1) Pulmonary embolism Acute cor pulmonale presence: without acute cor pulmonale Chronicity: acute Pulmonary embolism type: unspecified Qualified Code(s): I26.99 - Other pulmonary embolism without acute cor pulmonale
[2018-11-06] MEDS: MIRABEGRON ER 25 MG TAB PO SCH (20:21)
[2018-11-07] MEDS: GENTAMICIN SULFATE 0.3% OP SOLN 5 ML BTL OPR SCH ×3 (04:32→12:13)
[2018-11-07] MEDS: LEVOTHYROXINE SODIUM 150 MCG TABLET PO SCH (05:51)
[2018-11-07 07:15] LABS: Hematocrit (blood only) 39.8 % (37-47); Hemoglobin 12.3 g/dL (12.0-16.0); Mean Corpuscular Hgb Conc 30.9 g/dL (32-36); Mean Corpuscular Volume 89.8 fL (80-100); Mean Platelet Volume 9.4 fL (7.4-10.4); Platelet Count 313 K/uL (130-400); RDW Coefficient of Variation 16.6 % (11.5-14.5); Red Blood Count 4.43 M/uL (4.2-5.4)
[2018-11-07 07:27] LABS: INR 1.3 (0.9-1.1); Prothrombin Time 13.4 Seconds (9.0-12.0)
[2018-11-07 07:49] LABS: Creatinine Clr Calc Pharmacy 143.9 ml/min; Est GFR (African American) 109.1; Est GFR (Non-African American) 94.1
[2018-11-07] MEDS: DULOXETINE HCL 30 MG CAP PO SCH (08:41)
[2018-11-07] MEDS: LITHIUM CARBONATE 300 MG TAB PO SCH (08:42)
[2018-11-07] MEDS: SACCHAROMYCES BOULARDII 250 MG CAP PO SCH (08:43)
[2018-11-07] MEDS: FUROSEMIDE 40 MG TAB PO SCH (08:43)
[2018-11-07] MEDS: DOCUSATE SODIUM 100 MG CAP PO SCH (08:43)
[2018-11-07] MEDS: cloZAPine 100 MG TAB PO SCH (08:43)
[2018-11-07] MEDS: LISINOPRIL 10 MG TAB PO SCH (08:44)
[2018-11-07] MEDS: POTASSIUM CHLORIDE 10 MEQ TABCR PO SCH (08:44)
[2018-11-07] MEDS: FERROUS SULFATE 325 MG TAB PO SCH (08:44)
[2018-11-07] MEDS: SPIRONOLACTONE 25 MG TAB PO SCH (08:44)
[2018-11-07] MEDS: GABAPENTIN 600 MG TAB PO SCH ×2 (08:44→14:24)
[2018-11-07] MEDS: LACTOBACILLUS ACIDOPHILUS (FLORANEX) TAB PO SCH (08:45)
[2018-11-07] MEDS: ATORVASTATIN 10 MG TAB PO SCH (08:46)
[2018-11-07] MEDS: BACLOFEN 10 MG TAB PO SCH (08:46)
[2018-11-07] MEDS: INSULIN ASPART 100 UNITS/ML 3 ML PEN SC SCH ×2 (08:50→12:12)
[2018-11-07] MEDS: INSULIN GLARGINE SOLOSTAR 100 UNITS/ML 3 ML PEN SC SCH (08:50)
[2018-11-07] MEDS: TOPIRAMATE 50 MG TAB PO SCH (09:00)
[2018-11-07] MEDS: GABAPENTIN 300 MG CAP PO SCH ×2 (09:00→14:24)
[2018-11-07] MEDS: ENOXAPARIN 150 MG/ML SYR SQ SCH (10:38)
[2018-11-07] MEDS: cloZAPine 25 MG TAB PO SCH (12:12)
--- NOTE | 2018-11-07 14:08 | Hospitalist Progress Note ---
Date of Service November 07, 2018 Assessment & Plan (1) Pulmonary embolism: Acute bilateral Pulmonary emboli: Likely due to OCPs and inactivity CTA:Acute bilateral segmental and subsegmental pulmonary emboli in the lower lobes and minimal involvement of the lingula. No CT evidence of right heart strain at this time. Trace bilateral pleural effusions. Venous Doppler:No DVT within the right or left lower extremity. Somewhat limited exam due to body habitus considerations. OCPs discontinued Hypercoagulable Work up: pending IV heparin GGT transition to therapeutic Lovenox and Coumadin Not a candidate for NOACs due to BMI Monitor INR:1.0>>>1.3 Saturating well on RA Needs to follow-up with Coumadin clinic upon discharge (2) GERD (gastroesophageal reflux disease): Continue PPI (3) Hypothyroidism: Continue levothyroxine (4) Opiate dependence: H/O Opiate dependence. Avoid Opiates as able (5) Depression: Continue home meds (6) Neurogenic bladder: Continue mirabegron, straight caths. (7) Diabetes mellitus type 2, controlled: A1C:5.6 Hold metformin Utilize Lantus/NovoLog per protocol while hospitalized (8) Abdominal pain: Abdominal pain likely due to constipation Continue bowel regimen Consider imaging studies if no resolution (9) DVT prophylaxis: On Lovenox and Coumadin (10) Discharge planning issues: Plan to discharge back to residential today Internal Medicine follow-up with Dr. Stafford. Subjective Patient is seen and examined at bedside Pleuritic pain resolved Minimal dyspnea on exertion Saturating well on room air No other complaints No bleeding issues Review of Systems Review of Systems: All systems reviewed & are unremarkable except as noted in HPI & below Physical Exam Physical Exam: Physical Exam: Vitals signs as noted above General Appearance:Morbidly Obese, no apparent distress Head: normocephalic, Atraumatic Eyes: normal inspection, EOMI Neck: supple, Trachea midline Respiratory/Chest: Normal breath sounds, CTA Cardiovascular: S1, S2, No murmur Abdomen/GI:Soft, mild left lower quadrant tender, Bowel sounds present Extremities/Musculoskelatal:normal inspection, 1+B/L edema Neurologic/Psych:AAOX3, grossly no focal neurological deficits Skin: normal color, warm Results & Data Vital Signs (Past 12 Hours) Vital Signs Temp Pulse Resp BP BP Pulse Ox 11/07/18 11:31 36.8 C 86 18 108/63 95 07/19/19 08:06 36.8 C 85 18 115/62 98 11/07/18 04:27 37.1 C 97 H 20 115/76 94 Laboratory Results Short CBC 11/07/18 Range/Units 06:31 WBC 9.60 (4.8-10.8) K/uL Hgb 12.3 (12.0-16.0) g/dL Hct 39.8 (37-47) % Plt Count 313 (130-400) K/uL BMP 11/07/18 06:31 Creatinine 0.81 (1) Pulmonary embolism Acute cor pulmonale presence: without acute cor pulmonale Chronicity: acute Pulmonary embolism type: unspecified Qualified Code(s): I26.99 - Other pulmonary embolism without acute cor pulmonale
--- NOTE | 2018-11-07 14:29 | Discharge Summary ---
Date of Service November 07, 2018 Admission HPI Per Admitting Provider 33-year-old female followed by Dr. Stafford. History of multiple medical problems as noted below. Presented to the ED complaining of dyspnea that started about 1 week ago. Dyspnea was severe enough that she noted difficulty shopping. Subsequently developed left pleuritic chest pain. Pain was fairly severe and persistent. Came to ED for evaluation. Chest pain improved after receiving IV morphine. Experiencing right knee pain for some time is been relatively inactive. Uses oral contraceptive. Non-smoker. Admission Exam Per Admitting Provider Constitutional: WD/WN, vitals as above no acute distress and + uncomfortable Eyes: PERRL, conjunctivae normal, anicteric sclerae ENMT: external ear and nose normal, oropharynx normal Neck: trachea midline, no thyromegaly Respiratory: normal respiratory effort, lungs clear to auscultation Cardiovascular: Rate/Rhythm: regular rate Heart Sounds: + murmur (II/ sys murmur at base); no gallop and no cardiac rub Vessels: no JVD Extremities: normal capillary refill, + calf tenderness (bilat) and + edema (1+ pretibial) Gastrointestinal (Abdomen): Inspection/Auscultation: normal bowel sounds Percussion/Palpation: + abdomen tender (moderate left-sided tenderness without rebound or guarding) and abdomen soft Musculoskeletal: Head/Neck/Chest: neck supple Extremities: strength 5/5 throughout; no cyanosis and no clubbing Skin: no rashes, warm and dry Neurologic: PERRL, EOMI no facial palsy no dysarthria or aphasia patellar DTR's 1/2 bilat Psychiatric: Orientation: alert and oriented x 3 Affect: + anxious affect Lymphatic: no cervical lymphadenopathy Principal Diagnosis Discharge Information Discharge Diagnosis Acute bilateral Pulmonary Embolism Discharge Goals Decrease discomfort,Improve function,Improve disease control Discharge Activity Limitations Resume your previous acti Discharge Data Allergies Allergy/AdvReac Type Severity Reaction Status Date / Time erythromycin base Allergy Mild Unknown Verified 11/04/18 19:57 cephalexin Allergy Unknown . Verified 11/04/18 19:57 Penicillins Allergy Unknown . Verified 11/04/18 19:57 Sulfa (Sulfonamide Allergy Unknown . Verified 11/04/18 19:57 Antibiotics) Consultations 11/04/18 22:21 ED Decision to Admit Stat Procedures Performed CTA: 1. Acute bilateral segmental and subsegmental pulmonary emboli in the lower lobes and minimal involvement of the lingula. No CT evidence of right heart strain at this time. 2. Trace bilateral pleural effusions. The report will be called/faxed according to standard departmental protocol for a critical finding. Venous Doppler: No DVT within the right or left lower extremity. Somewhat limited exam due to body habitus considerations. Ordered Studies 11/04/18 21:27 CT angio chest PE protocol Stat 11/05/18 05:12 US venous doppler LE Routine Hospital Course (1) Pulmonary embolism: Acute bilateral Pulmonary emboli: Likely due to OCPs and inactivity CTA:Acute bilateral segmental and subsegmental pulmonary emboli in the lower lobes and minimal involvement of the lingula. No CT evidence of right heart strain at this time. Trace bilateral pleural effusions. Venous Doppler:No DVT within the right or left lower extremity. Somewhat limited exam due to body habitus considerations. OCPs discontinued Hypercoagulable Work up: pending IV heparin GGT transition to therapeutic Lovenox and Coumadin Not a candidate for NOACs due to BMI Monitor INR:1.0>>>1.3 Saturating well on RA Needs to follow-up with Coumadin clinic upon discharge (2) GERD (gastroesophageal reflux disease): Continue PPI (3) Hypothyroidism: Continue levothyroxine (4) Opiate dependence: H/O Opiate dependence. Avoid Opiates as able (5) Depression: Continue home meds (6) Neurogenic bladder: Continue mirabegron, straight caths. (7) Diabetes mellitus type 2, controlled: A1C:5.6 Hold metformin Utilize Lantus/NovoLog per protocol while hospitalized (8) Abdominal pain: Abdominal pain likely due to constipation Continue bowel regimen Consider imaging studies if no resolution (9) DVT prophylaxis: On Lovenox and Coumadin (10) Discharge planning issues: Plan to discharge back to alf today Internal Medicine follow-up with Dr. Stafford. Total Time Total Time Spent Total Time Spent (In Minutes): 38 minutes Total Time Includes: Examination of the Patient, Discharge Planning, Medication Reconciliation, Communication With Other Providers and Other Discharge Plan Discharge Items Patient Disposition: Home - Home Health Services Reason For Visit: PULMONARY EMBOLISM Discharge Diagnosis: Acute bilateral Pulmonary Embolism Discharge Goals: Decrease discomfort, Improve disease control and Improve function Activity: Resume your previous activity Exercise/Sports: Gradually increase as tolerated Non-emergency contact: Primary Care Provider Call non-emergency contact if: you have any medication questions, your symptoms worsen, your pain is not controlled, your pain is worsening, your pain is unusual for you, your pain is concerning for you and you have a fever Follow-up/Referrals: Fernando Stafford DO [Primary Care Provider] - Diet: Heart Healthy Other Ambulatory Orders: Prothrombin Time INR (Routine) Timeframe: 1 Day Location: Determined by Patient Ordered By: Willian Rose Provider Instructions: Follow-up with Dr. Chavez for primary care on November 11, 2018 at 10:45AM Follow up with Coumadin Clinic for management of Lovenox/Coumadin dosing and INR checks Take Coumadin 7.5 mg today (11/07/18) Get PT/INR checked tomorrow (11/08/18) and follow up with Coumadin clinic for further dosing of your Coumadin Stop Lovenox SQ once your PT/INR is therapeutic (Between 2.0 to 3.0 ) on two consecutive days STOP taking Oral Contraceptive Pills as advised Seek immediate medical attention if your symptoms reoccur or worsen Prescriptions: New enoxaparin [Lovenox] 150 mg/mL Syringe 150 mg subcut Q12H Qty: 8 RF: 0 warfarin [Coumadin] 1 mg tablet 1 mg PO UD Qty: 100 RF: 0 warfarin [Coumadin] 2.5 mg tablet 2.5 mg PO UD Qty: 100 RF: 0 warfarin [Coumadin] 5 mg tablet 5 mg PO UD Qty: 100 RF: 0 Continued atorvastatin 10 mg tablet 10 mg PO QAM RF: 0 clozapine 100 mg tablet 300 mg PO HS RF: 0 potassium chloride 10 mEq tablet extended release 10 meq PO QAM RF: 0 ondansetron 8 mg tablet,disintegrating 8 mg PO Q8 PRN (Reason: Nausea) RF: 0 lithium carbonate 600 mg capsule 600 mg PO HS RF: 0 docusate sodium [Colace] 100 mg Capsule 100 mg PO BID RF: 0 topiramate 50 mg tablet 50 mg PO BID RF: 0 Risperdal Consta 25 mg/2 mL Syringe 25 mg IM .EVERYOTHERWEEK RF: 0 clozapine [Clozaril] 25 mg Tablet 75 mg PO 1200 Qty: 90 RF: 0 gentamicin 0.3 % drops 1 drp OPR Q4 RF: 0 simethicone 80 mg Tablet,Chewable 80 mg PO UD PRN (Reason: Gastric Reflux) RF: 0 Florastor 250 mg capsule 250 mg PO BID Qty: 20 RF: 0 levothyroxine 150 mcg Tablet 150 mcg PO DAILY RF: 0 furosemide 40 mg tablet 80 mg PO BID RF: 0 metformin 500 mg tablet 500 mg PO BIDM RF: 0 gabapentin 600 mg tablet 600 mg PO TID RF: 0 lithium carbonate 150 mg capsule 150 mg PO QAM RF: 0 spironolactone 25 mg tablet 50 mg PO QAM RF: 0 baclofen 10 mg tablet 5 mg PO BID RF: 0 lithium carbonate 300 mg capsule 300 mg PO QAM RF: 0 lisinopril 10 mg tablet 10 mg PO QAM RF: 0 gabapentin 300 mg capsule 300 mg PO TID RF: 0 polyethylene glycol 3350 17 gram/dose powder 17 g PO BID PRN (Reason: Constipation) RF: 0 ferrous sulfate 325 mg (65 mg iron) Tablet,Delayed Release (Dr/Ec) 325 mg PO QAM RF: 0 duloxetine 60 mg capsule,delayed release(DR/EC) 90 mg PO QAM RF: 0 clozapine 200 mg tablet 100 mg PO QAM RF: 0 Myrbetriq 25 mg Tablet Extended Release 24 Hr 50 mg PO HS RF: 0 Lactobacillus acidophilus Capsule 10 mg PO QAM RF: 0 Discontinued levonorgestrel-ethinyl estrad 0.15 mg-30 mcg (91) tablets,dose pack,3 month See Rx Instructions .ROUTE .COMPLEX RF: 0 Stand-Alone Forms: [facility]/Other Patient Handouts: Enoxaparin Sodium Porcine Solution for injection, Coumadin, Injection Sub Q Giving Discharge Orders: Discharge Order (Routine); Ordered 11/07/18 Ordered By: Willian Toscano Admission Data Admit Date/Time: 11/04/18 23:30 Attending Provider: Willian Toscano Admit Provider: Milan Peña Primary Care Provider: Fernando Stafford Other Providers: Milan Peña ; Home,Nursing Agency Service: Telemetry Other Interventions: Discharge Summary Assessment (RN) Last Done: 11/07/18 14:32 Pending Studies at Discharge: Yes Studies:: Hypercoagulable work-up DC Date/Time DO NOT enter until pt leaves facility: 11/07/18 15:36
[2018-11-17 12:16] LABS: Anti Cardiolipin Ab IgG <14 GPL (< = 14); Anti Cardiolipin Ab IgM <12 MPL (< = 12); Anti-Cardiolipin Ab IgA <11 APL (< = 11); Anti-Thrombin III Activity 113 % activity (80-120); B2 Glycoprotein IgA <9 SAU (<=20); B2 Glycoprotein IgG <9 SGU (<=20); B2 Glycoprotein IgM <9 SMU (<=20); Protein S Functional(Activity) 89 % (60-140)
== END 2018-11-07 15:36 | disposition home health service (06) | DRG 176 ==
LOC: ED 17:09 → 2S 23:30

== ENCOUNTER 2018-12-19 15:03 | Inpatient (IN) ==
[2018-12-19] MEDS ORDERED: SODIUM CHLORIDE 0.9% 1000ML 1,000 ML IV SCH ×2 (15:30→21:00)
[2018-12-19] MEDS ORDERED: PROCHLORPERAZINE 2 ML IV STA (15:30)
[2018-12-19] MEDS ORDERED: FAMOTIDINE 20MG IV PUSH 20 MG/5 ML SYR IV STA (15:31)
--- NOTE | 2018-12-19 15:48 | XRay Report ---
XR chest 1V portable CLINICAL HISTORY: Chest Pain dyspnea COMPARISON STUDY: 11/18/2018 FINDINGS: The bones soft tissues and hemidiaphragms are normal. The cardiomediastinal silhouette is n ormal. The lungs are clear. The pulmonary vasculature is normal. IMPRESSION: Negative chest. The above report was generated using voice recognition software. It may contain grammatical, syntax or spelling errors. Electronically signed by: See Vergara M.D. 12/19/2018 3:47 PM
[2018-12-19 16:22] LABS: Basophils # (auto) 0.03 K/uL (0-0.2); Basophils % (auto) 0.2 %; Hematocrit (blood only) 43.2 % (37-47); Hemoglobin 14.1 g/dL (12.0-16.0); Immature Granulocytes # (auto) 0.04 K/uL (0.00-0.02); Immature Granulocytes % (auto) 0.3 %; Lymphocytes # (auto) 2.43 K/uL (1.2-3.4); Lymphocytes % (auto) 18.8 %; Mean Corpuscular Hemoglobin 28.2 pg (25-34); Mean Corpuscular Hgb Conc 32.6 g/dL (32-36); Mean Corpuscular Volume 86.4 fL (80-100); Mean Platelet Volume 9.3 fL (7.4-10.4); Monocytes % (auto) 5.4 %; Neutrophils % (auto) 75.3 %; Platelet Count 382 K/uL (130-400); RDW Coefficient of Variation 14.9 % (11.5-14.5); RDW Standard Deviation 47.7 fL (36.4-46.3)
[2018-12-19 16:30] LABS: INR 1.9 (0.9-1.1)
[2018-12-19 16:38] LABS: Pregnancy Test, Serum Negative (Negative)
[2018-12-19 16:39] LABS: Alanine Aminotransferase 90 U/L (12-78); Albumin Level 3.6 gm/dl (3.4-5.0); Aspartate Aminotransferase 54 U/L (15-37); BUN Creatinine Ratio 11.2 (10-20); Bilirubin Direct < 0.1 mg/dl (0-0.2); Blood Urea Nitrogen 11 mg/dl (7-18); Calcium 9.6 mg/dl (8.5-10.1); Carbon Dioxide 28 mmol/L (21-32); Chloride 102 mmol/L (98-107); Creatinine Clr Calc Pharmacy 120.8 ml/min; Est GFR (African American) 87.7; Est GFR (Non-African American) 75.7; Glucose 106 mg/dl (70-99); Lipase 653 U/L (73-393); Magnesium 2.6 mg/dl (1.8-2.4); Potassium 3.7 mmol/L (3.5-5.1); Sodium 137 mmol/L (136-145)
[2018-12-19 16:42] LABS: Albumin Globulin Ratio 0.9 (0.9-2); Alkaline Phosphatase 97 U/L (45-117); Bilirubin,Total 0.2 mg/dl (0.2-1); Phosphorus 4.5 mg/dl (2.5-4.9); Total Protein 7.6 gm/dl (6.4-8.2); Troponin I < 0.015 ng/ml (0-0.045)
[2018-12-19] MEDS ORDERED: METOCLOPRAMIDE HCL INJ 5 MG/ML 2 ML VIAL IV STA (17:15)
[2018-12-19] MEDS ORDERED: IOVERSOL 100ml IV PRN (17:43)
[2018-12-19 17:54] LABS: Appearance Urine Clear (Clear); Bilirubin Urine Negative (Negative); Blood Urine Trace (Negative); Color Urine Yellow; Glucose Urine UA Negative (Negative); Ketones Urine Negative (Negative); Leukocyte Esterase Urine Trace (Negative); Nitrite Urine Negative (Negative); Protein Urine Negative (Negative); Specific Gravity Urine 1.013 (1.000-1.030); Urobilinogen Urine Negative (Negative); pH Urine 6.5 (4.5-7.5)
--- NOTE | 2018-12-19 17:58 | CT Scan Report ---
CT abd pelvis IV con only CLINICAL HISTORY: 33 years-old Female presenting with generalized abdominal pain, nausea, vomiting, a nd diarrhea. TECHNIQUE: Multidetector CT of the abdomen and pelvis was performed after the administration of intra venous contrast. IV contrast: 94 mL of Optiray 320. One or more dose lowering techniques were used co nsistent with the principles of ALARA (as low as reasonably achievable), including automatic exposure control, mA or kV adjustment to individual patient size, and/or use of iterative reconstruction. COMPARISON: 11/18/2018. CT DOSE (mGy.cm): The estimated cumulative dose is 1341.55 mGycm. 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 Orthopedic hardware noted in the lumbar spine. Lung bases: Normal heart size. No pericardial or pleural effusion. No focal infiltrate or nodule at t he lung bases. Liver: Normal morphology. Density suggestive of hepatic steatosis. No focal lesion. Patent hepatic va sculature. Biliary: No intrahepatic or extrahepatic biliary ductal dilatation. Gallbladder surgically absent. Pancreas: Normal. Spleen: Normal. Splenule noted. Adrenal glands: Normal. Kidneys and ureters: Normal. No hydronephrosis. Bladder: Incompletely evaluated secondary to underdistention. Pelvic organs: Uterus and ovaries normal. Bowel: Normal appendix. No bowel obstruction. Peritoneal cavity: No free fluid or intraperitoneal gas. Lymph nodes: No enlarged lymph nodes in the abdomen or pelvis. Vasculature: Aorta and IVC patent and normal in caliber. Abdominal wall: Foci of subcutaneous fat infiltration in the right anterior abdominal wall likely rel ated to medication administration. Musculoskeletal: Posterior lumbar fusion hardware. IMPRESSION: 1. Hepatic steatosis. Correlate with liver function tests to exclude steatohepatitis as a cause for abdominal pain. No other evidence of acute intra-abdominal pathology. 2. Status post cholecystectomy. Electronically signed by: Cale Quintanilla M.D. 12/19/2018 5:57 PM
[2018-12-19 18:14] LABS: Bacteria Urine Automated 1+ (Negative); Cast Urine Automated 0 /lpf (0-5); RBC Urine Automated 0-4 /hpf (0-4)
[2018-12-19] MEDS ORDERED: cefTRIAXone SODIUM 2,000 MG/70 ML BAG IV STA (18:30)
[2018-12-19] MEDS ORDERED: ACETAMINOPHEN 1,000 MG/100 ML VIAL IV STA (18:32)
[2018-12-19] MEDS ORDERED: GI COCKTAIL ED USE PO STA (18:32)
--- NOTE | 2018-12-19 19:00 | History & Physical Report ---
Date of Service December 19, 2018 Assessment & Plan (1) Vomiting: This is a 33yo F with a PMH of DM II, recent bilateral PEs in October 2018 on coumadin, severe MDD with psychotic features, opioid dependence in remission, HTN, and other medical problems listed below who presents with vomiting starting earlier today. -Nausea, chronic abd discomfort, diarrhea, diaphoresis, worsening depression x 3 days in setting of likely clozapine withdrawal (9 missed days) -Mild leukocytosis, normal electrolytes, lipase elevated at 653 but abdominal pain not consistent with pancreatitis -Considered serotonin syndrome but afebrile, no clonus or muscle spacticity -Will resume clozapine, antiemetics PRN, IV fluids -Tox screen negative. [place] level normal at 0.6 -CT abd/pelvis without acute abnormality -Clear liquid diet, advance as tolerated (2) UTI (urinary tract infection): UA abnormal with leuk esterase, 1+ urine bacteria -Treat empirically with rocephin -Follow urine culture (3) Major depressive disorder with psychotic features: Feels more depressed than usual with A/V hallucinations -Continue lithium, cymbalta, resume Clozapine -Routine psych consult for worsening A/V hallucinations (4) Pulmonary embolism: Recent bilateral PE diagnosis in October 2018 -Continue coumadin -INR 1.9 today, continue to monitor daily (5) Diabetes mellitus type 2, controlled: A1c of 5.5 in October 2018 -Hold home agents -SSI while in-patient -BSG AC HS (6) Bilateral lower extremity edema: Holding lasix dose while receiving IV fluids (7) Opiate dependence: History of opiate dependence -Use narcotics only when absolutely necessary (8) Hypothyroidism: Continue levothyroxine DVT Ppx: Continue home coumadin Code status: FULL PCP: Nydia Dispo: Observation med tele. Discharge planning ordered for return to long-term Patient seen in collaboration with Dr. Cabrera. Please see addendum. History of Present Illness Primary Care Provider: Fernando Stafford, This is a 33yo F with a PMH of DM II, recent bilateral PEs in October 2018 on coumadin, severe MDD with psychotic features, opioid dependence in remission, HTN, and other medical problems listed below who presents with vomiting starting earlier today. Patient has not been in normal state of health for the past 3 days, endorsing intermittent abdominal cramping, nausea, sweating and dizziness. Has been staying hydrated and endorses frequent urination. Had 3 episodes of vomiting food contents today and another episode in the ED after antiemetics. Received Reglan and Compazine but is still nauseated. Denies any fever or chills, chest pain, dysuria, hematuria or constipation. Endorses ongoing pleuritic chest pains and shortness of breath in setting of PEs. Also complaining of green colored bowel movements x 3 weeks. No sick contacts. Of note, has missed 9 days of clozapine after missing last psychiatry appointment. Follows with Lora at [place]. Has been feeling more depressed over the past week and endorses auditory hallucinations of "voices saying mean things to me" and seeing " people". No SI/HI. Denies recent drug or alcohol use. Afebrile with BP initially 97/62. Mild leukocytosis of 12.9. Electrolytes WNL. CT abd/pelvis without acute abnormality. UA with trace leuk esterase and 1+ bacteria. [place] level is normal at 0.6 Allergies Allergy/AdvReac Type Severity Reaction Status Date / Time erythromycin base Allergy Mild Unknown Verified 12/19/18 15:56 cephalexin Allergy Unknown . Verified 12/19/18 15:56 Penicillins Allergy Unknown . Verified 12/19/18 15:56 Sulfa (Sulfonamide Allergy Unknown . Verified 12/19/18 15:56 Antibiotics) Home Medications Home Medications Medication Instructions Recorded Confirmed Type Lactobacillus acidophilus 10 mg PO QAM 05/23/18 12/19/18 History Myrbetriq 25 mg PO HS 05/23/18 12/19/18 History baclofen 10 mg PO BID 05/23/18 12/19/18 History clozapine 200 mg PO HS 05/23/18 12/19/18 History duloxetine 60 mg PO QAM 05/23/18 12/19/18 History ferrous sulfate 325 mg PO QAM 05/23/18 12/19/18 History gabapentin 300 mg PO TID 05/23/18 12/19/18 History gabapentin 600 mg PO TID 05/23/18 12/19/18 History lisinopril 10 mg PO QAM 05/23/18 12/19/18 History lithium carbonate 150 mg PO QAM 05/23/18 12/19/18 History lithium carbonate 300 mg PO QAM 05/23/18 12/19/18 History metformin 500 mg PO BIDM 05/23/18 12/19/18 History polyethylene glycol 3350 17 g PO BID PRN 05/23/18 12/19/18 History atorvastatin [Lipitor] 10 mg PO QAM 08/28/18 12/19/18 History docusate sodium [Colace] 100 mg PO BID 08/28/18 12/19/18 History lithium carbonate 600 mg PO HS 08/28/18 12/19/18 History ondansetron 8 mg PO DIRECTED PRN 08/28/18 12/19/18 History potassium chloride 10 meq PO QAM 08/28/18 12/19/18 History topiramate 50 mg PO BID 08/28/18 12/19/18 History duloxetine 30 mg PO DAILY 12/09/18 12/19/18 History clozapine 100 mg PO DAILY 12/19/18 12/19/18 History furosemide 80 mg PO BID 12/19/18 12/19/18 History levothyroxine 137 mcg PO QAM 12/19/18 12/19/18 History warfarin 7.5 mg PO TUTHSA@1600 12/19/18 12/19/18 History warfarin [Coumadin] 5 mg PO SUMOWEFR@1600 12/19/18 12/19/18 History Past Med/Surg History Medical History Diabetes mellitus type 2, controlled (Chronic) Constipation (Chronic) Anxiety (Chronic) GERD (gastroesophageal reflux disease) (Chronic) Hypothyroidism (Chronic) Cervicalgia (Chronic) Migraine headache (Chronic) Back pain (Acute) Chronic pain associated with significant psychosocial dysfunction (Chronic) Drug-seeking behavior (Acute) Major depressive disorder with psychotic features (Chronic) Opiate dependence (Chronic) UTI (urinary tract infection) (Acute) Post-concussion headache (Inactive) Pulmonary embolism (Inactive) Surgical History H/O discectomy (Resolved) H/O arthroscopy of left knee (Resolved) Family History Mother Dementia Hypothyroidism Brother Coronary heart disease Brother Diabetes Father Heart disease Social History Preferred Language: Mohawk Communication Ability: Effective Housefellow Required: No Beliefs That Will Affect Care: None marital status: Single Current Living Situation: Boarding Home Current Living Situation Comment: long-term Other Information That Helps Us Care for You: No Feels Safe at Home: Yes Safety Concerns: Feels Safe At This Time Smoking Status: Never smoker Second Hand Exposure: Yes ; Hx Alcohol Use: No Hx Substance Use: Yes substance use type: painkillers Last Used Substance Other:: remote Review of Systems Review of Systems: At least ten systems reviewed and negative except as noted in the HPI. Physical Exam Physical Exam: General Appearance: WD/WN, vitals as above, NAD, sitting up in bed, pleasant, conversing easily, morbidly obese Head: normocephalic, atraumatic Eyes: normal inspection, PERRL, conjunctivae normal, anicteric sclerae ENT: external ear and nose normal, oropharynx normal Neck: trachea midline, no thyromegaly normal visual inspection Respiratory: normal respiratory effort, lungs clear to auscultation, no wheeze, rales, rhonchi. Normal insp/exp effort, no accessory muscle use Cardiovascular: regular rate, rhythm, no murmur, normal peripheral pulses, no BLE edema. Vessels: no JVD or carotid bruit Chest: normal inspection of chest Abdomen/GI: normal bowel sounds, soft, nontender, no hepatosplenomegaly Extremities/Musculoskelatal: no cyanosis or clubbing, extremities motor strength 5/5 Neurologic: PERRL, EOMI, accommodation nl, no face palsy, no dysarthria CN's II-XI intact bilaterally and moves all extremities Psychiatric: A&O x 3, depressed mood Skin: no rashes, normal color, warm/dry Results & Data Vital Signs (Past 12 Hours) Vital Signs Temp Pulse Pulse Resp BP BP Pulse Ox 12/19/18 18:22 87 23 97/62 L 97 12/19/18 17:10 114 H 16 96 12/19/18 17:01 90 18 97 12/19/18 17:00 95 H 20 98 12/19/18 16:52 90 21 101/60 98 12/19/18 16:50 88 95 H 18 101/60 97 12/19/18 16:40 98 H 25 H 12/19/18 16:30 96 H 27 H 12/19/18 16:20 94 H 19 12/19/18 16:10 91 H 24 12/19/18 16:00 92 H 27 H 12/19/18 15:59 92 H 33 H 12/19/18 15:11 37.2 C 107 H 20 114/88 97 Laboratory Results Short CBC 12/19/18 Range/Units 16:14 WBC 12.90 H (4.8-10.8) K/uL Hgb 14.1 (12.0-16.0) g/dL Hct 43.2 (37-47) % Plt Count 382 (130-400) K/uL BMP 12/19/18 16:14 Sodium 137 Potassium 3.7 Chloride 102 Carbon Dioxide 28 BUN 11 Creatinine 0.97 Glucose 106 H Calcium 9.6 Cardiac Enzymes 12/19/18 Range/Units 16:14 Troponin I < 0.015 (0-0.045) ng/ml Liver Function 12/19/18 Range/Units 16:14 Total Bilirubin 0.2 (0.2-1) mg/dl Direct Bilirubin < 0.1 (0-0.2) mg/dl AST 54 H (15-37) U/L ALT 90 H (12-78) U/L Alkaline Phosphatase 97 (45-117) U/L Albumin 3.6 (3.4-5.0) gm/dl Urine 12/19/18 Range/Units 17:30 Urine Color Yellow Urine Appearance Clear (Clear) Urine pH 6.5 (4.5-7.5) Ur Specific [place] 1.013 (1.000-1.030) Urine Protein Negative (Negative) Urine Glucose (UA) Negative (Negative) Diagnostic Findings CXR: IMPRESSION: Negative chest. CT abd/pelvis: IMPRESSION: 1. Hepatic steatosis. Correlate with liver function tests to exclude steatohepatitis as a cause for abdominal pain. No other evidence of acute intra- abdominal pathology. 2. Status post cholecystectomy. Supervising Physician Co-Signing Physician Notes Attending addendum: The patient was sen and examined in ER Admitted with N&V and ocational hallucination Generally weak and feels sweaty and dizzy On Examination Obese No apparent distress Chest-clear Heart-regular Abdomen-Benign Extremities-Trace edema bilaterally Labs and Imaging studies noted Likely has Gastroenreritis complicated by possible UTI and Psychosis due to not having medication for a number of days. Agree with the assessment and plan as outlined above by Pancho [address] Dr (1) Pulmonary embolism Acute cor pulmonale presence: without acute cor pulmonale Chronicity: acute Pulmonary embolism type: unspecified Qualified Code(s): I26.99 - Other pulmonary embolism without acute cor pulmonale
[2018-12-19 19:07] LABS: Amphetamines+Metham, Urine Neg (Neg); Barbiturates, Urine Neg (Neg); Benzodiazepine, Urine Neg (Neg); Cocaine, Urine Neg (Neg); MDMA (Ecstacy), Urine Neg (Neg); Methadone, Urine Neg (Neg); Opiate, Urine Neg (Neg); Phencyclidine, Urine Neg (Neg)
[2018-12-19] MEDS ORDERED: ACETAMINOPHEN 325 MG TAB PO PRN (20:11)
[2018-12-19] MEDS ORDERED: PROMETHAZINE HCL 6.25 MG in SODIUM CHLORIDE 0.9% 50 ML IV PRN (20:11)
[2018-12-19] MEDS ORDERED: POLYETHYLENE (MIRALAX) 17 GM PACK PO PRN (20:11)
[2018-12-19] MEDS ORDERED: cloZAPine 100 MG TAB PO SCH (21:00)
[2018-12-19] MEDS: WARFARIN SOD 5 MG TAB PO SCH (21:37)
[2018-12-19] MEDS: LITHIUM CARBONATE 300 MG TAB PO SCH (21:38)
[2018-12-19] MEDS: BACLOFEN 10 MG TAB PO SCH (21:38)
[2018-12-19] MEDS: DOCUSATE SODIUM 100 MG CAP PO SCH (21:38)
[2018-12-19] MEDS: MIRABEGRON ER 25 MG TAB PO SCH (21:39)
[2018-12-19] MEDS: GABAPENTIN 600 MG TAB PO SCH (21:39)
[2018-12-19] MEDS: GABAPENTIN 300 MG CAP PO SCH (21:39)
[2018-12-19] MEDS: TOPIRAMATE 50 MG TAB PO SCH (21:40)
--- NOTE | 2018-12-20 00:09 | Emergency Department Note ---
Entered by Lakeisha Bonilla acting as a scribe for Neo Morales MD History of Present Illness General Chief complaint: Vomiting Stated complaint: VOMITING Time Seen by Provider: 12/19/18 15:23 Source: patient Limitations: no limitations History of Present Illness Onset (ago): day(s) 2 Location: abdomen Pain Consistency: + other (persistent ) Maximum Pain Intensity: 5 Quality: + other (nausea/vomiting) Associated symptoms: + denies other symptoms (urinary symptoms ) and + other (feeling feverish) The patient is a 33 year old female who presents to the Emergency Room with complaints of persistent nausea/vomiting that began two days ago. She states that she has not taken her Clozapine for the past 9 days, because she has not seen her PCP to get the prescription refilled. The patient complains of feeling feverish for the past few days. She reports that she has had green stool for the past 3 weeks. She denies any urinary symptoms. The patient notes that her last BM was this morning. She reports that she has been taking her lithium. The patient states that she has been keeping her medications down. She denies any alcohol, marijuana, and drug use. Home Medications Home Medications Medication Instructions Recorded Confirmed Type Lactobacillus acidophilus 10 mg PO QAM 05/23/18 12/19/18 History Myrbetriq 25 mg PO HS 05/23/18 12/19/18 History baclofen 10 mg PO BID 05/23/18 12/19/18 History clozapine 200 mg PO HS 05/23/18 12/19/18 History duloxetine 60 mg PO QAM 05/23/18 12/19/18 History ferrous sulfate 325 mg PO QAM 05/23/18 12/19/18 History gabapentin 300 mg PO TID 05/23/18 12/19/18 History gabapentin 600 mg PO TID 05/23/18 12/19/18 History lisinopril 10 mg PO QAM 05/23/18 12/19/18 History lithium carbonate 150 mg PO QAM 05/23/18 12/19/18 History lithium carbonate 300 mg PO QAM 05/23/18 12/19/18 History metformin 500 mg PO BIDM 05/23/18 12/19/18 History polyethylene glycol 3350 17 g PO BID PRN 05/23/18 12/19/18 History atorvastatin [Lipitor] 10 mg PO QAM 08/28/18 12/19/18 History docusate sodium [Colace] 100 mg PO BID 08/28/18 12/19/18 History lithium carbonate 600 mg PO HS 08/28/18 12/19/18 History ondansetron 8 mg PO DIRECTED PRN 08/28/18 12/19/18 History potassium chloride 10 meq PO QAM 08/28/18 12/19/18 History topiramate 50 mg PO BID 08/28/18 12/19/18 History duloxetine 30 mg PO DAILY 12/09/18 12/19/18 History clozapine 100 mg PO DAILY 12/19/18 12/19/18 History furosemide 80 mg PO BID 12/19/18 12/19/18 History levothyroxine 137 mcg PO QAM 12/19/18 12/19/18 History warfarin 7.5 mg PO TUTHSA@1600 12/19/18 12/19/18 History warfarin [Coumadin] 5 mg PO SUMOWEFR@1600 12/19/18 12/19/18 History Allergies Allergy/AdvReac Type Severity Reaction Status Date / Time erythromycin base Allergy Mild Unknown Verified 12/19/18 15:56 cephalexin Allergy Unknown . Verified 12/19/18 15:56 Penicillins Allergy Unknown . Verified 12/19/18 15:56 Sulfa (Sulfonamide Allergy Unknown . Verified 12/19/18 15:56 Antibiotics) Past Med/Surg History Medical History Diabetes mellitus type 2, controlled (Chronic) Constipation (Chronic) Anxiety (Chronic) GERD (gastroesophageal reflux disease) (Chronic) Hypothyroidism (Chronic) Cervicalgia (Chronic) Migraine headache (Chronic) Back pain (Acute) Chronic pain associated with significant psychosocial dysfunction (Chronic) Drug-seeking behavior (Acute) Major depressive disorder with psychotic features (Chronic) Opiate dependence (Chronic) UTI (urinary tract infection) (Acute) Post-concussion headache (Inactive) Pulmonary embolism (Inactive) Surgical History H/O discectomy (Resolved) H/O arthroscopy of left knee (Resolved) Family History Mother Dementia Hypothyroidism Brother Coronary heart disease Brother Diabetes Father Heart disease Social History Preferred Language: [place] Communication Ability: Effective Utility Teller Required: No Beliefs That Will Affect Care: None marital status: Single Current Living Situation: Boarding Home Current Living Situation Comment: senior living Other Information That Helps Us Care for You: No Feels Safe at Home: Yes Safety Concerns: Feels Safe At This Time Smoking Status: Never smoker Second Hand Exposure: Yes ; Hx Alcohol Use: No Hx Substance Use: Yes substance use type: painkillers Last Used Substance Other:: remote Review of Systems See HPI for pertinent positives & negatives. and A total of 10 systems reviewed and were otherwise negative Physical Exam Vital Signs Vital Signs - 24 hr 12/19/18 15:11 12/19/18 15:59 12/19/18 16:00 Temperature 37.2 C Temperature Source Oral Sepsis Recent Fever Within 48 Hours No Sepsis Action Taken by Nursing No Action Required Pulse Rate 107 H 92 H 92 H Pulse Rate [Finger] Pulse Rate from SpO2 Sensor Pulse Strength Normal Respiratory Rate 20 33 H 27 H Respiratory Effort / Characteristics Non-Labored Spontaneous Respiratory Depth Normal Respiratory Pattern Regular Blood Pressure 114/88 Blood Pressure [Left Arm] Blood Pressure Mean 96 Blood Pressure Mean [Left Arm] Blood Pressure Position Sitting Pulse Oximetry 97 Oxygen Delivery Method Room Air Room Air Room Air 12/19/18 16:10 12/19/18 16:20 12/19/18 16:30 Temperature Temperature Source Sepsis Recent Fever Within 48 Hours Sepsis Action Taken by Nursing Pulse Rate 91 H 94 H 96 H Pulse Rate [Finger] Pulse Rate from SpO2 Sensor Pulse Strength Respiratory Rate 24 19 27 H Respiratory Effort / Characteristics Respiratory Depth Respiratory Pattern Blood Pressure Blood Pressure [Left Arm] Blood Pressure Mean Blood Pressure Mean [Left Arm] Blood Pressure Position Pulse Oximetry Oxygen Delivery Method Room Air Room Air Room Air 12/19/18 16:40 12/19/18 16:50 12/19/18 16:52 Temperature Temperature Source Sepsis Recent Fever Within 48 Hours Sepsis Action Taken by Nursing Pulse Rate 98 H 88 90 Pulse Rate [Finger] 95 H Pulse Rate from SpO2 Sensor 90 Pulse Strength Respiratory Rate 25 H 18 21 Respiratory Effort / Characteristics Respiratory Depth Respiratory Pattern Blood Pressure 101/60 Blood Pressure [Left Arm] 101/60 Blood Pressure Mean 73 Blood Pressure Mean [Left Arm] 73 Blood Pressure Position Pulse Oximetry 97 98 Oxygen Delivery Method Room Air Room Air Room Air 12/19/18 17:00 12/19/18 17:01 12/19/18 17:10 Temperature Temperature Source Sepsis Recent Fever Within 48 Hours Sepsis Action Taken by Nursing Pulse Rate 95 H 90 114 H Pulse Rate [Finger] Pulse Rate from SpO2 Sensor 95 H 91 H 115 H Pulse Strength Respiratory Rate 20 18 16 Respiratory Effort / Characteristics Respiratory Depth Respiratory Pattern Blood Pressure Blood Pressure [Left Arm] Blood Pressure Mean 74 Blood Pressure Mean [Left Arm] Blood Pressure Position Pulse Oximetry 98 97 96 Oxygen Delivery Method Room Air Room Air Room Air 12/19/18 18:22 12/19/18 18:23 12/19/18 18:30 Temperature Temperature Source Sepsis Recent Fever Within 48 Hours Sepsis Action Taken by Nursing Pulse Rate 88 87 88 Pulse Rate [Finger] 87 Pulse Rate from SpO2 Sensor 89 86 88 Pulse Strength Respiratory Rate 23 22 37 H Respiratory Effort / Characteristics Respiratory Depth Respiratory Pattern Blood Pressure 97/62 L 101/62 Blood Pressure [Left Arm] 97/62 L Blood Pressure Mean 73 75 Blood Pressure Mean [Left Arm] 73 Blood Pressure Position Pulse Oximetry 97 95 96 Oxygen Delivery Method Room Air Room Air Room Air 12/19/18 18:40 12/19/18 18:50 12/19/18 19:00 Temperature Temperature Source Sepsis Recent Fever Within 48 Hours Sepsis Action Taken by Nursing Pulse Rate 84 87 90 Pulse Rate [Finger] Pulse Rate from SpO2 Sensor 83 87 91 H Pulse Strength Respiratory Rate 17 18 Respiratory Effort / Characteristics Respiratory Depth Respiratory Pattern Blood Pressure Blood Pressure [Left Arm] Blood Pressure Mean Blood Pressure Mean [Left Arm] Blood Pressure Position Pulse Oximetry 99 96 99 Oxygen Delivery Method Room Air Room Air Room Air 12/19/18 19:01 12/19/18 19:10 12/19/18 19:20 Temperature Temperature Source Sepsis Recent Fever Within 48 Hours Sepsis Action Taken by Nursing Pulse Rate 87 92 H 88 Pulse Rate [Finger] Pulse Rate from SpO2 Sensor 88 90 86 Pulse Strength Respiratory Rate Respiratory Effort / Characteristics Respiratory Depth Respiratory Pattern Blood Pressure 116/58 L Blood Pressure [Left Arm] Blood Pressure Mean 77 Blood Pressure Mean [Left Arm] Blood Pressure Position Pulse Oximetry 98 98 97 Oxygen Delivery Method Room Air Room Air Room Air 12/19/18 19:30 Temperature Temperature Source Sepsis Recent Fever Within 48 Hours Sepsis Action Taken by Nursing Pulse Rate 85 Pulse Rate [Finger] Pulse Rate from SpO2 Sensor 86 Pulse Strength Respiratory Rate Respiratory Effort / Characteristics Respiratory Depth Respiratory Pattern Blood Pressure Blood Pressure [Left Arm] Blood Pressure Mean Blood Pressure Mean [Left Arm] Blood Pressure Position Pulse Oximetry 97 Oxygen Delivery Method Room Air GENERAL: Awake, alert, uncomfortable-appearing, in no distress, BMI of 49.7 kg/m2 HENT: Normocephalic, atraumatic. Oropharynx with dry mucous membranes and otherwise unremarkable. EYES: Normal conjunctiva. Sclera non-icteric. EOMI. No nystamgus. PEARRL. NECK: Supple. No nuchal rigidity. FROM. No JVD. RESPIRATORY: CTAB. CARDIAC: Regular rate, normal rhythm. Extremities warm and well perfused. Pulses equal. ABDOMEN: Soft, non-distended. Mild epigastric discomfort without discrete tenderness. No rebound or guarding. No masses. RECTAL: Deferred. MUSCULOSKELETAL: Chest examination reveals no tenderness. The back is symmetrical on inspection without obvious abnormality. There is no CVA tenderness to palpation. No joint edema. LOWER EXTREMITIES: Calves are equal size bilaterally and non-tender. No edema. No discoloration. NEURO: Normal sensorium. No sensory or motor deficits noted. Normal reflexes. No clonus. SKIN: No rash or jaundice noted. Course 1527: The patient was evaluated in room B09. A complete history and physical exam was performed. 173: I reassessed the patient, and she was resting comfortably. 8: I reevaluated the patient, and she stated that she was feeling better. 1837: I spoke with Perez Escalante PA-C, about the patients case. She will further evaluate the patient with Dr. Cabrera. Consultations Consultation #1: I spoke with Perez Escalante PA-C, about the patients case. She will further evaluate the patient with Dr. Cabrera. Time: 18:37 Administered Medications Baclofen (Lioresal) 10 mg PO BID LINNEA Stop: 01/18/19 20:59 Last Admin: 12/19/18 21:38 Dose: 10 mg Documented by: [id number] Clozapine (Clozapine) 200 mg PO HS LINNEA Stop: 01/18/19 20:59 Last Admin: 12/19/18 21:37 Dose: 200 mg Documented by: [id number] Docusate Sodium (Colace) 100 mg PO BID LINNEA Stop: 01/18/19 20:59 Last Admin: 12/19/18 21:38 Dose: Not Given Documented by: [id number] Gabapentin (Neurontin) 300 mg PO TID LINNEA Stop: 01/18/19 20:59 Last Admin: 12/19/18 21:39 Dose: 300 mg Documented by: [id number] Gabapentin (Neurontin) 600 mg PO TID LINNEA Stop: 01/18/19 20:59 Last Admin: 12/19/18 21:39 Dose: 600 mg Documented by: [id number] Sodium Chloride (Nss 1000ml) 1,000 mls @ 100 mls/hr IV .Q10H LINNEA Stop: 12/20/18 06:59 Last Admin: 12/19/18 21:33 Dose: 100 mls/hr Documented by: [id number] [place] Carbonate ([place] Carbonate) 600 mg PO HS [facility] Stop: 01/18/19 20:59 Last Admin: 12/19/18 21:38 Dose: 600 mg Documented by: [id number] Mirabegron (Myrbetriq Er) 25 mg PO HS [facility] Stop: 01/18/19 20:59 Last Admin: 12/19/18 21:39 Dose: 25 mg Documented by: [id number] Topiramate (Topamax) 50 mg PO BID LINNEA Stop: 01/18/19 20:59 Last Admin: 12/19/18 21:40 Dose: 50 mg Documented by: [id number] Warfarin Sodium (Coumadin) 5 mg PO SuMoWeFr@1600 [facility] Stop: 01/18/19 20:10 Last Admin: 12/19/18 21:37 Dose: 5 mg Documented by: [id number] Discontinued Medications Al Hydrox/Mg Hydrox/Simethicone () 1 dose PO NOW STA Stop: 12/19/18 18:33 Last Admin: 12/19/18 18:42 Dose: 1 dose Documented by: [id number] Prochlorperazine (Compazine) 2 mls @ 1 mls/min IV NOW STA Stop: 12/19/18 15:31 Last Admin: 12/19/18 16:48 Dose: 1 mls/min Documented by: [id number] Sodium Chloride (Nss 1000ml) 1,000 mls @ 999 mls/hr IV .Q1H1M LINNEA Stop: 12/19/18 16:30 Last Infusion: 12/19/18 18:09 Dose: 0 mls/hr Documented by: [id number] Admin: 12/19/18 16:48 Dose: 999 mls/hr Documented by: [id number] Famotidine (Pepcid 20mg Iv Push) 20 mg in 5 mls @ 2.5 mls/min IV NOW STA Stop: 12/19/18 15:32 Last Admin: 12/19/18 16:48 Dose: 2.5 mls/min Documented by: [id number] Acetaminophen (Ofirmev) 1,000 mg in 100 mls @ 400 mls/hr IV NOW STA Stop: 12/19/18 18:46 Last Infusion: 12/19/18 18:59 Dose: 0 mls/hr Documented by: [id number] Admin: 12/19/18 18:40 Dose: 400 mls/hr Documented by: [id number] Ceftriaxone Sodium (Rocephin) 2,000 mg in 70 mls @ 140 mls/hr IV NOW STA Stop: 12/19/18 18:59 Last Infusion: 12/19/18 19:37 Dose: 0 mls/hr Documented by: [id number] Admin: 12/19/18 19:05 Dose: 140 mls/hr Documented by: [id number] Ioversol (Optiray 320 100ml) 94 ml IV ONCE PRN PRN Reason: Interaction Checking Stop: 12/23/18 17:42 Last Admin: 12/19/18 17:43 Dose: 94 ml Documented by: [id number] Metoclopramide HCl (Reglan) 10 mg IV NOW STA Stop: 12/19/18 17:16 Last Admin: 12/19/18 17:27 Dose: 10 mg Documented by: [id number] Medical Decision Making Differential Diagnosis Etiologies such as gastroenteritis, food borne illness, infections, appendi citis, diverticulitis, inflammatory bowel disease, obstruction, GI bleed, biliary pathology, cardiac process, intracranial process, as well as others were entertained. Medical Records Attestation: I reviewed the patient's medical records. Home Medications Current Medication List: was personally reviewed by me Laboratory Data Attestation: I reviewed the patient's lab results. Result diagrams: 12/19/18 16:14 12/19/18 16:14 Lab Results 12/19/18 12/19/18 12/19/18 Range/Units 16:14 16:14 16:14 WBC 12.90 H (4.8-10.8) K/uL RBC 5.00 (4.2-5.4) M/uL Hgb 14.1 (12.0-16.0) g/dL Hct 43.2 (37-47) % MCV 86.4 (80-100) fL MCH 28.2 (25-34) pg MCHC 32.6 (32-36) g/dL RDW Std Deviation 47.7 H (36.4-46.3) fL RDW Coeff of Manohar 14.9 H (11.5-14.5) % Plt Count 382 (130-400) K/uL MPV 9.3 (7.4-10.4) fL Immature Gran % (Auto) 0.3 % Neut % (Auto) 75.3 % Lymph % (Auto) 18.8 % [place] % (Auto) 5.4 % Eos % (Auto) 0.0 % Baso % (Auto) 0.2 % Immature Gran # (Auto) 0.04 H (0.00-0.02) K/uL Neut # (Auto) 9.70 H (1.4-6.5) K/uL Lymph # (Auto) 2.43 (1.2-3.4) K/uL [place] # (Auto) 0.70 H (0.11-0.59) K/uL Eos # (Auto) 0.00 (0-0.5) K/uL Baso # (Auto) 0.03 (0-0.2) K/uL PT 19.0 H (9.0-12.0) Seconds INR 1.9 H (0.9-1.1) Sodium (136-145) mmol/L Potassium (3.5-5.1) mmol/L Chloride (98-107) mmol/L Carbon Dioxide (21-32) mmol/L Anion Gap (3-11) BUN (7-18) mg/dl Creatinine (0.6-1.2) mg/dl Est Cr Clr Drug Dosing ml/min Est GFR ( Amer) Est GFR (Non-Af Amer) BUN/Creatinine Ratio (10-20) Glucose (70-99) mg/dl Calcium (8.5-10.1) mg/dl Phosphorus (2.5-4.9) mg/dl Magnesium (1.8-2.4) mg/dl Total Bilirubin (0.2-1) mg/dl Direct Bilirubin (0-0.2) mg/dl AST (15-37) U/L ALT (12-78) U/L Alkaline Phosphatase (45-117) U/L Troponin I (0-0.045) ng/ml Total Protein (6.4-8.2) gm/dl Albumin (3.4-5.0) gm/dl Globulin (2.5-4.0) gm/dl Albumin/Globulin Ratio (0.9-2) Lipase (73-393) U/L HCG, Qual (Negative) Urine Color Urine Appearance (Clear) Urine pH (4.5-7.5) Ur Specific [place] (1.000-1.030) Urine Protein (Negative) Urine Glucose (UA) (Negative) Urine Ketones (Negative) Urine Blood (Negative) Urine Nitrite (Negative) Urine Bilirubin (Negative) Urine Urobilinogen (Negative) Ur Leukocyte Esterase (Negative) Urine WBC (Auto) (0-5) /hpf Urine RBC (Auto) (0-4) /hpf U Hyaline Cast (Auto) (0-5) /lpf U Epithel Cells (Auto) (0-5) /lpf Urine Bacteria (Auto) (Negative) Urine Opiates Screen (Neg) Ur Methadone, Qual (Neg) Urine Barbiturates (Neg) Ur Phencyclidine (PCP) (Neg) U Amphetamin/Meth Scrn (Neg) MDMA (Ecstasy) Screen (Neg) U Benzodiazepines Scrn (Neg) [place] 0.6 (0.6-1.2) mmol/L Ur Cocaine Metabolite (Neg) U Marijuana (THC) Screen (Neg) 12/19/18 12/19/18 12/19/18 Range/Units 16:14 16:14 17:30 WBC (4.8-10.8) K/uL RBC (4.2-5.4) M/uL Hgb (12.0-16.0) g/dL Hct (37-47) % MCV (80-100) fL MCH (25-34) pg MCHC (32-36) g/dL RDW Std Deviation (36.4-46.3) fL RDW Coeff of Manohar (11.5-14.5) % Plt Count (130-400) K/uL MPV (7.4-10.4) fL Immature Gran % (Auto) % Neut % (Auto) % Lymph % (Auto) % [place] % (Auto) % Eos % (Auto) % Baso % (Auto) % Immature Gran # (Auto) (0.00-0.02) K/uL Neut # (Auto) (1.4-6.5) K/uL Lymph # (Auto) (1.2-3.4) K/uL [place] # (Auto) (0.11-0.59) K/uL Eos # (Auto) (0-0.5) K/uL Baso # (Auto) (0-0.2) K/uL PT (9.0-12.0) Seconds INR (0.9-1.1) Sodium 137 (136-145) mmol/L Potassium 3.7 (3.5-5.1) mmol/L Chloride 102 (98-107) mmol/L Carbon Dioxide 28 (21-32) mmol/L Anion Gap 7.0 (3-11) BUN 11 (7-18) mg/dl Creatinine 0.97 (0.6-1.2) mg/dl Est Cr Clr Drug Dosing 120.8 ml/min Est GFR ( Amer) 87.7 Est GFR (Non-Af Amer) 75.7 BUN/Creatinine Ratio 11.2 (10-20) Glucose 106 H (70-99) mg/dl Calcium 9.6 (8.5-10.1) mg/dl Phosphorus 4.5 (2.5-4.9) mg/dl Magnesium 2.6 H (1.8-2.4) mg/dl Total Bilirubin 0.2 (0.2-1) mg/dl Direct Bilirubin < 0.1 (0-0.2) mg/dl AST 54 H (15-37) U/L ALT 90 H (12-78) U/L Alkaline Phosphatase 97 (45-117) U/L Troponin I < 0.015 (0-0.045) ng/ml Total Protein 7.6 (6.4-8.2) gm/dl Albumin 3.6 (3.4-5.0) gm/dl Globulin 4.0 (2.5-4.0) gm/dl Albumin/Globulin Ratio 0.9 (0.9-2) Lipase 653 H (73-393) U/L HCG, Qual Negative (Negative) Urine Color Yellow Urine Appearance Clear (Clear) Urine pH 6.5 (4.5-7.5) Ur Specific [place] 1.013 (1.000-1.030) Urine Protein Negative (Negative) Urine Glucose (UA) Negative (Negative) Urine Ketones Negative (Negative) Urine Blood Trace H (Negative) Urine Nitrite Negative (Negative) Urine Bilirubin Negative (Negative) Urine Urobilinogen Negative (Negative) Ur Leukocyte Esterase Trace H (Negative) Urine WBC (Auto) 1-5 (0-5) /hpf Urine RBC (Auto) 0-4 (0-4) /hpf U Hyaline Cast (Auto) 0 (0-5) /lpf U Epithel Cells (Auto) 10-20 H (0-5) /lpf Urine Bacteria (Auto) 1+ H (Negative) Urine Opiates Screen (Neg) Ur Methadone, Qual (Neg) Urine Barbiturates (Neg) Ur Phencyclidine (PCP) (Neg) U Amphetamin/Meth Scrn (Neg) MDMA (Ecstasy) Screen (Neg) U Benzodiazepines Scrn (Neg) [place] (0.6-1.2) mmol/L Ur Cocaine Metabolite (Neg) U Marijuana (THC) Screen (Neg) 12/19/18 Range/Units 17:30 WBC (4.8-10.8) K/uL RBC (4.2-5.4) M/uL Hgb (12.0-16.0) g/dL Hct (37-47) % MCV (80-100) fL MCH (25-34) pg MCHC (32-36) g/dL RDW Std Deviation (36.4-46.3) fL RDW Coeff of Manohar (11.5-14.5) % Plt Count (130-400) K/uL MPV (7.4-10.4) fL Immature Gran % (Auto) % Neut % (Auto) % Lymph % (Auto) % [place] % (Auto) % Eos % (Auto) % Baso % (Auto) % Immature Gran # (Auto) (0.00-0.02) K/uL Neut # (Auto) (1.4-6.5) K/uL Lymph # (Auto) (1.2-3.4) K/uL [place] # (Auto) (0.11-0.59) K/uL Eos # (Auto) (0-0.5) K/uL Baso # (Auto) (0-0.2) K/uL PT (9.0-12.0) Seconds INR (0.9-1.1) Sodium (136-145) mmol/L Potassium (3.5-5.1) mmol/L Chloride (98-107) mmol/L Carbon Dioxide (21-32) mmol/L Anion Gap (3-11) BUN (7-18) mg/dl Creatinine (0.6-1.2) mg/dl Est Cr Clr Drug Dosing ml/min Est GFR ( Amer) Est GFR (Non-Af Amer) BUN/Creatinine Ratio (10-20) Glucose (70-99) mg/dl Calcium (8.5-10.1) mg/dl Phosphorus (2.5-4.9) mg/dl Magnesium (1.8-2.4) mg/dl Total Bilirubin (0.2-1) mg/dl Direct Bilirubin (0-0.2) mg/dl AST (15-37) U/L ALT (12-78) U/L Alkaline Phosphatase (45-117) U/L Troponin I (0-0.045) ng/ml Total Protein (6.4-8.2) gm/dl Albumin (3.4-5.0) gm/dl Globulin (2.5-4.0) gm/dl Albumin/Globulin Ratio (0.9-2) Lipase (73-393) U/L HCG, Qual (Negative) Urine Color Urine Appearance (Clear) Urine pH (4.5-7.5) Ur Specific [place] (1.000-1.030) Urine Protein (Negative) Urine Glucose (UA) (Negative) Urine Ketones (Negative) Urine Blood (Negative) Urine Nitrite (Negative) Urine Bilirubin (Negative) Urine Urobilinogen (Negative) Ur Leukocyte Esterase (Negative) Urine WBC (Auto) (0-5) /hpf Urine RBC (Auto) (0-4) /hpf U Hyaline Cast (Auto) (0-5) /lpf U Epithel Cells (Auto) (0-5) /lpf Urine Bacteria (Auto) (Negative) Urine Opiates Screen Neg (Neg) Ur Methadone, Qual Neg (Neg) Urine Barbiturates Neg (Neg) Ur Phencyclidine (PCP) Neg (Neg) U Amphetamin/Meth Scrn Neg (Neg) MDMA (Ecstasy) Screen Neg (Neg) U Benzodiazepines Scrn Neg (Neg) [place] (0.6-1.2) mmol/L Ur Cocaine Metabolite Neg (Neg) U Marijuana (THC) Screen Neg (Neg) Imaging Data Radiologist's Impression: Radiology results as stated below per my review and the radiologist's interpretation: XR chest 1V portable CLINICAL HISTORY: Chest Pain dyspnea COMPARISON STUDY: 11/18/2018 FINDINGS: The bones soft tissues and hemidiaphragms are normal. The cardiomediastinal silhouette is normal. The lungs are clear. The pulmonary vasculature is normal. IMPRESSION: Negative chest. The above report was generated using voice recognition software. It may contain grammatical, syntax or spelling errors. Electronically signed by: See Vergara M.D. 12/19/2018 3:[address] abd pelvis IV con only CLINICAL HISTORY: 33 years-old Female presenting with generalized abdominal pain, nausea, vomiting, and diarrhea. TECHNIQUE: Multidetector CT of the abdomen and pelvis was performed after the administration of intravenous contrast. IV contrast: 94 mL of Optiray 320. One or more dose lowering techniques were used consistent with the principles of ALARA (as low as reasonably achievable), including automatic exposure control, mA or kV adjustment to individual patient size, and/or use of iterative reconstruction. COMPARISON: 11/18/2018. CT DOSE (mGy.cm): The estimated cumulative dose is 1341.55 mGycm. FINDINGS: Supervisor Prop Making topogram: Cholecystectomy clips. Orthopedic hardware noted in the lumbar spine. Lung bases: Normal heart size. No pericardial or pleural effusion. No focal infiltrate or nodule at the lung bases. Liver: Normal morphology. Density suggestive of hepatic steatosis. No focal lesion. Patent hepatic vasculature. Biliary: No intrahepatic or extrahepatic biliary ductal dilatation. Gallbladder surgically absent. Pancreas: Normal. Spleen: Normal. Splenule noted. Adrenal glands: Normal. Kidneys and ureters: Normal. No hydronephrosis. Bladder: Incompletely evaluated secondary to underdistention. Pelvic organs: Uterus and ovaries normal. Bowel: Normal appendix. No bowel obstruction. Peritoneal cavity: No free fluid or intraperitoneal gas. Lymph nodes: No enlarged lymph nodes in the abdomen or pelvis. Vasculature: Aorta and IVC patent and normal in caliber. Abdominal wall: Foci of subcutaneous fat infiltration in the right anterior abdominal wall likely related to medication administration. Musculoskeletal: Posterior lumbar fusion hardware. IMPRESSION: 1. Hepatic steatosis. Correlate with liver function tests to exclude steatohepatitis as a cause for abdominal pain. No other evidence of acute intra- abdominal pathology. 2. Status post cholecystectomy. Electronically signed by: Cale Quintanilla M.D. 12/19/2018 5:57 PM ECG Data Attestation: I personally reviewed and interpreted this ECG as follows: Indication: nausea and vomiting Rate (beats per minute): 88 Rhythm: normal sinus Findings: + other (normal axis ); no acute ischemic change Blood Pressure Blood Pressure Findings: Low blood pressure Blood Pressure Disposition: further management by hospitalist YVONNE Narrative The patient is a pleasant 33-year-old woman with a past medical history of bipolar disorder on lithium and clozapine, recent PE on Coumadin, hepatic steat osis who presents emerged department with nausea and vomiting over the past 2 days in the setting of having run out of her Clozapine 9 days ago per hpi. On arrival patient is uncomfortable but no acute distress, afebrile stable vital signs. Patient appears clinically dry. She has mild epigastric discomfort without discrete ttp. EKG without overt acute ischemia. CXR negative. WBC 11.8, nonspecific. H/H and platelets wnl. Chemistry without acidosis. AST 54, similar to prior. ALT 90 elevated from recent but approximate to prior range of values. INR 1.9, subtherapeutic. Troponin negative. Lipase 600s, likely related to patient's vomiting. UA with 1+ bacteria albeit with epitheleal cells. [place] level wnl. CT abd/pelvis with Hepatic steatosis similar to prior CT. Patient initially treated with Compazine and pepcid but then again developed vomiting. Subsequently given Reglan but still nauseated with dry heaving. Given intractible sx in the setting of the patient's important PO medications (Reglan and Coumadin), reasonable to admit the patient for further management. Case was discussed with Perez Escalante, who evaluate the patient for admission. Impression & Plan Nausea & vomiting, UTI (urinary tract infection) Discharge Plan Visit Data *Final* Discharge Date/Time: 12/19/18 19:54 Chief Complaint: Vomiting Stated Complaint: VOMITING ED Provider: Neo Morales Discharge Problem: Nausea & vomiting, UTI (urinary tract infection) Patient Disposition: Admitted As Inpatient Discharge Instructions Interventions: ED Discharge Assessment Last Done: 12/19/18 19:54 The scribe's documentation has been prepared under my direction and personally reviewed by me in its entirety. I confirm that the note above accurately reflects all work, treatment, procedures, and medical decision making performed by me.
[2018-12-20] MEDS: LEVOTHYROXINE SODIUM 137 MCG TABLET PO SCH (06:26)
[2018-12-20 07:16] LABS: Hematocrit (blood only) 41.1 % (37-47); Mean Corpuscular Hemoglobin 27.5 pg (25-34); Mean Corpuscular Hgb Conc 31.6 g/dL (32-36); Mean Corpuscular Volume 87.1 fL (80-100); Mean Platelet Volume 9.4 fL (7.4-10.4); Platelet Count 317 K/uL (130-400); RDW Coefficient of Variation 15.2 % (11.5-14.5); RDW Standard Deviation 48.7 fL (36.4-46.3); Red Blood Count 4.72 M/uL (4.2-5.4); White Blood Count 7.37 K/uL (4.8-10.8)
[2018-12-20 07:23] LABS: INR 2.2 (0.9-1.1); Prothrombin Time 21.5 Seconds (9.0-12.0)
[2018-12-20 07:45] LABS: BUN Creatinine Ratio 11.4 (10-20); Calcium 8.9 mg/dl (8.5-10.1); Creatinine Clr Calc Pharmacy 145.7 ml/min; Est GFR (African American) 110.7; Est GFR (Non-African American) 95.5; Potassium 3.6 mmol/L (3.5-5.1)
[2018-12-20] MEDS ORDERED: PNEUMOCOCCAL ADMINISTRATION CHARGE ONE (08:00)
[2018-12-20] MEDS ORDERED: PNEUMOCOCCAL POLYSACCHARIDES 25 MCG/0.5 ML VIAL/SYR IM ONE (08:00)
[2018-12-20] MEDS: DOCUSATE SODIUM 100 MG CAP PO SCH ×2 (08:39→20:11)
[2018-12-20] MEDS: FERROUS SULFATE 325 MG TAB PO SCH (08:40)
[2018-12-20] MEDS: DULOXETINE HCL 30 MG CAP PO SCH (08:40)
[2018-12-20] MEDS: DULOXETINE HCL 60 MG CAP PO SCH (08:40)
[2018-12-20] MEDS: POTASSIUM CHLORIDE 10 MEQ TABCR PO SCH (08:41)
[2018-12-20] MEDS: ATORVASTATIN 10 MG TAB PO SCH (08:41)
[2018-12-20] MEDS: BACLOFEN 10 MG TAB PO SCH ×2 (08:41→20:10)
[2018-12-20] MEDS: LITHIUM CARBONATE 300 MG TAB PO SCH ×3 (08:42→20:09)
[2018-12-20] MEDS: GABAPENTIN 600 MG TAB PO SCH ×3 (08:43→20:10)
[2018-12-20] MEDS: GABAPENTIN 300 MG CAP PO SCH ×3 (08:43→20:10)
[2018-12-20] MEDS: LISINOPRIL 10 MG TAB PO SCH (08:44)
[2018-12-20] MEDS: TOPIRAMATE 50 MG TAB PO SCH ×2 (08:44→20:11)
[2018-12-20] MEDS ORDERED: cloZAPine 100 MG TAB PO SCH (09:00)
[2018-12-20] MEDS ORDERED: LACTOBACILLUS ACIDOPHILUS PO SCH (09:00)
--- NOTE | 2018-12-20 11:59 | Psychiatric Consultation ---
Date of Consultation December 20, 2018 Impression / Recommendations Impression 33 yo female with history of mood driven psychosis, normal lithium level despite UTI/vomit, may have had exacerbation of symptoms due to no Clozaril for >1 week. 1. when miss greater than 2 days of Clozaril it is to be restarted at 12.5 mg BID with closer monitoring of CBC and retitrated. 2. currently IVF, if unable to tolerate PO and lithium level is nearing 1 it should be held/monitored. 3. will reattempt MSE when more awake as cannot comment on auditory anand at this time. She is typical cooperative inpatient even when quite disorganized and she will be returning to [facility] with close supervision. Risk Factors Assessment Do You Have Access To A Gun?: No Psych History Identifying Data 33 yo female well known to me from inpatient stays on [facility]. She has been living in [facility] following discharge from [facility] in Apr. Last stay on our unit was August. Chief Complaint patient currently sedated, admit with vomiting and UTI. History of Present Illness Patient reportedly out of Clozaril for 9 days after missing an appointment at [place]. Staff have left message with [facility] to confirm. Unclear if aud/visual anand increased as patient not particularly able to participate in exam at this time. Note that Clozaril was started at previous dose. She was not lithium toxic on arrival to ED, Li 0.6 and not quite 10-12 hour trough. Past Psychiatric History Previous Psych History: well documented on chart Previous Psych Admissions: [facility], [facility] (11/2015 and 02/2016), [facility] 05/2016 - 04/2018 Do You Have Access To A Gun?: No History of Previous Suicide Attempt: Yes Describe Attempts in the Past: 2 1/2 years ago - OD on bottle of Gabapentin Past Medication Trials: Including, but not limited to: 1. Risperdal - EPS 2. Seroquel 3. Haldol 4. Neurontin 5. Cymbalta 6. Topamax 7. Haldol Decanoate 8. Wellbutrin 9. Klonopin 10.Invega 11.Amantadine 12.Clozaril 13.Parsons 14.Risperdal Consta Past Head Trauma/Neuro History History of Concussion/Seizure: Yes horse accident in 2011 Current Psychiatric Diagnosis: MDD with psychotic features Previous Psych Admissions: multiple Do You Have Access To A Gun?: No Allergies Allergy/AdvReac Type Severity Reaction Status Date / Time erythromycin base Allergy Mild Unknown Verified 12/19/18 15:56 cephalexin Allergy Unknown . Verified 12/19/18 15:56 Penicillins Allergy Unknown . Verified 12/19/18 15:56 Sulfa (Sulfonamide Allergy Unknown . Verified 12/19/18 15:56 Antibiotics) Home Medications Home Medications Medication Instructions Recorded Confirmed Type Lactobacillus acidophilus 10 mg PO QAM 05/23/18 12/19/18 History Myrbetriq 25 mg PO HS 05/23/18 12/19/18 History baclofen 10 mg PO BID 05/23/18 12/19/18 History clozapine 200 mg PO HS 05/23/18 12/19/18 History duloxetine 60 mg PO QAM 05/23/18 12/19/18 History ferrous sulfate 325 mg PO QAM 05/23/18 12/19/18 History gabapentin 300 mg PO TID 05/23/18 12/19/18 History gabapentin 600 mg PO TID 05/23/18 12/19/18 History lisinopril 10 mg PO QAM 05/23/18 12/19/18 History lithium carbonate 150 mg PO QAM 05/23/18 12/19/18 History lithium carbonate 300 mg PO QAM 05/23/18 12/19/18 History metformin 500 mg PO BIDM 05/23/18 12/19/18 History polyethylene glycol 3350 17 g PO BID PRN 05/23/18 12/19/18 History atorvastatin [Lipitor] 10 mg PO QAM 08/28/18 12/19/18 History docusate sodium [Colace] 100 mg PO BID 08/28/18 12/19/18 History lithium carbonate 600 mg PO HS 08/28/18 12/19/18 History ondansetron 8 mg PO DIRECTED PRN 08/28/18 12/19/18 History potassium chloride 10 meq PO QAM 08/28/18 12/19/18 History topiramate 50 mg PO BID 08/28/18 12/19/18 History duloxetine 30 mg PO DAILY 12/09/18 12/19/18 History clozapine 100 mg PO DAILY 12/19/18 12/19/18 History furosemide 80 mg PO BID 12/19/18 12/19/18 History levothyroxine 137 mcg PO QAM 12/19/18 12/19/18 History warfarin 7.5 mg PO TUTHSA@1600 12/19/18 12/19/18 History warfarin [Coumadin] 5 mg PO SUMOWEFR@1600 12/19/18 12/19/18 History Family History father was bipolar Personal History Living Arrangements: [facility] Highest Grade Completed Comment: learning issues Employment Status: Disabled Beliefs That Will Affect Care: None History of Legal Problems: no Patient History Medical History Diabetes mellitus type 2, controlled (Chronic) Constipation (Chronic) Anxiety (Chronic) GERD (gastroesophageal reflux disease) (Chronic) Hypothyroidism (Chronic) Cervicalgia (Chronic) Migraine headache (Chronic) Back pain (Acute) Chronic pain associated with significant psychosocial dysfunction (Chronic) Drug-seeking behavior (Acute) Major depressive disorder with psychotic features (Chronic) Opiate dependence (Chronic) UTI (urinary tract infection) (Acute) Post-concussion headache (Inactive) Pulmonary embolism (Inactive) Surgical History H/O discectomy (Resolved) H/O arthroscopy of left knee (Resolved) Family History Mother Dementia Hypothyroidism Brother Coronary heart disease Brother Diabetes Father Heart disease Social History Preferred Language: Turkmen Communication Ability: 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 Beliefs That Will Affect Care: None marital status: Single Current Living Situation: Boarding Home Current Living Situation Comment: long-term Other Information That Helps Us Care for You: No Feels Safe at Home: Yes Safety Concerns: Feels Safe At This Time Smoking Status: Never smoker Second Hand Exposure: Yes ; Hx Alcohol Use: No Hx Substance Use: Yes substance use type: painkillers Last Used Substance Other:: remote Physical Exam Mental Examination: unable to complete Vital Signs (Past 24 Hours): Last Vital Signs Temp 36.4 C L 12/20/18 07:21 Pulse 88 12/20/18 07:25 Resp 18 12/20/18 07:21 BP 127/85 12/20/18 07:21 Pulse Ox 99 12/20/18 07:21 Review of Systems Unobtainable due to mental health condition Results & Data Medications Administered Atorvastatin Calcium (Lipitor) 10 mg PO QAM [facility] Stop: 01/19/19 08:59 Last Admin: 12/20/18 08:41 Dose: 10 mg Documented by: [id number] Baclofen (Lioresal) 10 mg PO BID [facility] Stop: 01/18/19 20:59 Last Admin: 12/20/18 08:41 Dose: 10 mg Documented by: [id number] Admin: 12/19/18 21:38 Dose: 10 mg Documented by: [id number] Docusate Sodium (Colace) 100 mg PO BID [facility] Stop: 01/18/19 20:59 Last Admin: 12/20/18 08:39 Dose: 100 mg Documented by: [id number] Admin: 12/19/18 21:38 Dose: Not Given Documented by: [id number] Duloxetine HCl (Cymbalta) 30 mg PO DAILY [facility] Stop: 01/19/19 08:59 Last Admin: 12/20/18 08:40 Dose: 30 mg Documented by: [id number] Duloxetine HCl (Cymbalta) 60 mg PO QAM [facility] Stop: 01/19/19 08:59 Last Admin: 12/20/18 08:40 Dose: 60 mg Documented by: [id number] Ferrous Sulf[facility] ([facility]ol) [facility] Stop: 01/19/19 08:59 Last Admin: 12/20/18 08:40 Dose: 325 mg Documented by: [id number] Gabapentin (Neurontin) 300 mg PO TID [facility] Stop: 01/18/19 20:59 Last Admin: 12/20/18 08:43 Dose: 300 mg Documented by: [id number] Admin: 12/19/18 21:39 Dose: 300 mg Documented by: [id number] Gabapentin (Neurontin) 600 mg PO TID [facility] Stop: 01/18/19 20:59 Last Admin: 12/20/18 08:43 Dose: 600 mg Documented by: [id number] Admin: 12/19/18 21:39 Dose: 600 mg Documented by: [id number] Levothyroxine Sodium (Levothyroxine Sodium) 137 mcg PO DAILYBB [facility] Stop: 01/19/19 06:29 Last Admin: 12/20/18 06:26 Dose: 137 mcg Documented by: [id number] Cosigned by: [id number] Lisinopril (Zestril) 10 mg PO QAM [facility] Stop: 01/19/19 08:59 Last Admin: 12/20/18 08:44 Dose: 10 mg Documented by: [id number] Parsons Carbonate (Parsons Carbonate) 300 mg PO QAM [facility] Stop: 01/19/19 08:59 Last Admin: 12/20/18 08:42 Dose: 300 mg Documented by: [id number] Parsons Carbonate (Parsons Carbonate) 600 mg PO [facility] Stop: 01/18/19 20:59 Last Admin: 12/19/18 21:38 Dose: 600 mg Documented by: [id number] Parsons Carbonate (Parsons Carbonate) [facility] Stop: 01/19/19 08:59 Last Admin: 12/20/18 08:42 Dose: 150 mg Documented by: [id number] Mirabegron (Myrbetriq Er) 25 mg PO [facility] Stop: 01/18/19 20:59 Last Admin: 12/19/18 21:39 Dose: 25 mg Documented by: [id number] Potassium Chloride (Klor-Con M10) 10 meq PO [facility] Stop: 01/19/19 08:59 Last Admin: 12/20/18 08:41 Dose: 10 meq Documented by: [id number] Topiramate (Topamax) 50 mg PO BID [facility] Stop: 01/18/19 20:59 Last Admin: 12/20/18 08:44 Dose: 50 mg Documented by: [id number] Admin: 12/19/18 21:40 Dose: 50 mg Documented by: [id number] Warfarin Sodium (Coumadin) 5 mg PO SuMoWeFr@1600 [facility] Stop: 01/18/19 20:10 Last Admin: 12/19/18 21:37 Dose: 5 mg Documented by: [id number]
[2018-12-20] MEDS ORDERED: WARFARIN SOD 7.5 MG TAB PO SCH (16:00)
--- NOTE | 2018-12-20 16:51 | Hospitalist Progress Note ---
Date of Service December 20, 2018 Assessment & Plan (1) Vomiting: Present on admission with nausea and vomiting CT abdomen and pelvis showed no other evidence of acute intra-abdominal pathology. Lipase elevated at 653 on admission Continue IVF and antiemetic management Continue clear liquid diet, will advance as tolerated Monitor electrolytes (2) Abnormal urinalysis: UA positive for leukocytes and bacteria On IV Rocehin Urine cx pending (3) Major depressive disorder with psychotic features: Feels more depressed than usual with A/V hallucinations On lithium, cymbalta Psych on board and recommended to resumed clozapine at a low dose (12.5 mg ) Continue monitor closely (4) Pulmonary embolism: Recent bilateral PE diagnosis in October 2018 Continue coumadin with INR 2.2 today Monitor PT/INR (5) Diabetes mellitus type 2, controlled: A1c of 5.5 in October 2018 Continue insulin sliding scale Continue monitor BS (6) Bilateral lower extremity edema: Continue holding lasix dose s (7) Opiate dependence: History of opiate dependence Use narcotics only when absolutely necessary (8) Hypothyroidism: Continue levothyroxine DVT Ppx: On coumadin with INR 2.2 Code status: FULL Dispo: Will discharge once medically stable Subjective Pt was seen and examined Lying in bed with no distress Pt is sleeping She said that she did not sleep last night She said that she feels nauseated She wants to continue with the clear liquid diet for now Denies any chest pain, palpitation, dizziness and SOB Physical Exam Physical Exam: General- No acute distress Head- atraumatic Eyes- PERRL, EOMI, ENT- oropharynx clear Neck- supple, no JVD Lungs- clear to auscultation Heart- regular rhythm; no murmur Abdomen- normal bowel sounds, soft, nontender Extremities- no calf tenderness Neuro- alert, oriented x 3; PERRL, EOMI; no facial palsy; no dysarthria Skin- warm & dry Results & Data Vital Signs (Past 12 Hours) Vital Signs Temp Pulse Pulse Resp BP Pulse Ox 12/20/18 16:03 36.7 C 111 H 20 109/66 97 12/20/18 16:00 104 H 12/20/18 07:25 88 12/20/18 07:21 36.4 C L 70 18 127/85 99 (1) Pulmonary embolism Acute cor pulmonale presence: without acute cor pulmonale Chronicity: acute Pulmonary embolism type: unspecified Qualified Code(s): I26.99 - Other pulmonary embolism without acute cor pulmonale
[2018-12-20] MEDS ORDERED: SODIUM CHLORIDE 0.9% 1000ML 1,000 ML IV SCH (17:30)
[2018-12-20] MEDS ORDERED: GLUCOSE 10 TABS/TUBE PO PRN (18:29)
[2018-12-20] MEDS ORDERED: DEXTROSE 50% 50 ML SYRINGE IV PRN (18:29)
[2018-12-20] MEDS ORDERED: GLUCAGON FOR INJ 1 MG VIAL SQ PRN (18:29)
[2018-12-20] MEDS ORDERED: CARBOHYDRATES FOR HYPOGLYCEMIA PO PRN (18:29)
[2018-12-20] MEDS ORDERED: GLUCOSE 40% GEL 15 GM TUBE PO PRN (18:29)
[2018-12-20] MEDS ORDERED: cefTRIAXone SODIUM 2,000 MG in DEXTROSE 5% 50 ML IV SCH (20:00)
[2018-12-20] MEDS: MIRABEGRON ER 25 MG TAB PO SCH (20:09)
[2018-12-20] MEDS: INSULIN ASPART 100 UNITS/ML 3 ML PEN SC SCH (21:12)
[2018-12-21] MEDS: cloZAPine 25 MG TAB PO SCH ×3 (01:18→19:38)
[2018-12-21] MEDS: LEVOTHYROXINE SODIUM 137 MCG TABLET PO SCH (05:28)
[2018-12-21 06:58] LABS: Hematocrit (blood only) 38.3 % (37-47); Hemoglobin 11.9 g/dL (12.0-16.0); Mean Corpuscular Hemoglobin 27.2 pg (25-34); Mean Corpuscular Hgb Conc 31.1 g/dL (32-36); Mean Corpuscular Volume 87.4 fL (80-100); Mean Platelet Volume 9.3 fL (7.4-10.4); Platelet Count 299 K/uL (130-400); RDW Coefficient of Variation 15.5 % (11.5-14.5); RDW Standard Deviation 50.1 fL (36.4-46.3); Red Blood Count 4.38 M/uL (4.2-5.4); White Blood Count 8.46 K/uL (4.8-10.8)
[2018-12-21 07:05] LABS: INR 2.8 (0.9-1.1); Prothrombin Time 26.8 Seconds (9.0-12.0)
[2018-12-21 07:39] LABS: BUN Creatinine Ratio 10.9 (10-20); Calcium 8.6 mg/dl (8.5-10.1); Creatinine Clr Calc Pharmacy 161.8 ml/min; Est GFR (African American) 125.8; Est GFR (Non-African American) 108.5; Potassium 4.1 mmol/L (3.5-5.1)
[2018-12-21] MEDS: INSULIN ASPART 100 UNITS/ML 3 ML PEN SC SCH ×4 (08:34→20:47)
[2018-12-21] MEDS: DULOXETINE HCL 60 MG CAP PO SCH (08:39)
[2018-12-21] MEDS: DOCUSATE SODIUM 100 MG CAP PO SCH ×2 (08:39→19:40)
[2018-12-21] MEDS: DULOXETINE HCL 30 MG CAP PO SCH (08:39)
[2018-12-21] MEDS: POTASSIUM CHLORIDE 10 MEQ TABCR PO SCH (08:40)
[2018-12-21] MEDS: FERROUS SULFATE 325 MG TAB PO SCH (08:40)
[2018-12-21] MEDS: LITHIUM CARBONATE 300 MG TAB PO SCH ×3 (08:41→19:37)
[2018-12-21] MEDS: ATORVASTATIN 10 MG TAB PO SCH (08:41)
[2018-12-21] MEDS: BACLOFEN 10 MG TAB PO SCH ×2 (08:41→19:39)
[2018-12-21] MEDS: GABAPENTIN 600 MG TAB PO SCH ×3 (08:43→19:40)
[2018-12-21] MEDS: GABAPENTIN 300 MG CAP PO SCH ×3 (08:43→19:38)
[2018-12-21] MEDS: LISINOPRIL 10 MG TAB PO SCH (08:44)
[2018-12-21] MEDS: TOPIRAMATE 50 MG TAB PO SCH ×2 (08:44→19:40)
[2018-12-21] MEDS ORDERED: cloZAPine 25 MG TAB PO SCH (09:00)
[2018-12-21] MEDS ORDERED: SODIUM CHLORIDE 0.9% 1000ML 1,000 ML IV SCH (09:22)
--- NOTE | 2018-12-21 12:30 | Psychiatric Progress Note ---
Date of Service December 21, 2018 Impression / Recommendations Impression 33 yo female with history of mood driven psychosis, normal lithium level despite UTI/vomit, may have had exacerbation of symptoms due to no Clozaril for >1 week. 12/20/18 1. when miss greater than 2 days of Clozaril it is to be restarted at 12.5 mg BID with closer monitoring of CBC and retitrated. 2. currently IVF, if unable to tolerate PO and lithium level is nearing 1 it should be held/monitored. 3. will reattempt MSE when more awake as cannot comment on auditory anand at this time. She is typical cooperative inpatient even when quite disorganized and she will be returning to [facility] with close supervision. 12/21/18--will increase Clozaril 25 mg daily to previous dose, titration will have to continue outpatient. [facility] is closed until 12/23 and unclear when can get from [place] to [facility]. Called the occupational health physician number for [facility] and they are not able to assist and state next rx would need to go to retail pharmacy. Reviewed often complicated with [facility] program and the insurance given [facility] contract. Dr. Menendez aware and we may be able to get 1 day supply prior to discharge. 12.5/50 mg today then 50 mg BID tomorrow. No indication for inpatient psychiatric admission. Risk Factors Assessment Do You Have Access To A Gun?: No Interval History Chief Complaint f/u retitration of Clozaril Review of Systems Notes states still slightly dizzy, using walker Subjective Subjective Patient was seen & assessed and interval progress reviewed with Dr. Menendez. Patient is advancing diet and is animated in conversation. Reviewed rationale for medication changes. senior living cannot confirm when next dose of Risperdal consta is due. Reviewed that symptoms likely related to UTI but also Clozaril withdrawal and that if vomiting in future should hold [place] to avoid toxicity. Physical Exam Psychiatric Orientation: alert Apperance: appropriately groomed Eye Contact: good eye contact Speech: normal rate/rhythm/volume of speech Affect: mood congruent with affect Mood: + anxious mood Thought Process: clear/coherent thought process Thought Content: reality based without delusions Suicidal Thoughts: denies suicidal thoughts Homicidal Thoughts: denies homicidal thoughts Hallucinations: no auditory hallucinations and no visual hallucinations Cognition: attention grossly intact Insight: + fair insight Judgement: + fair judgement Vital Signs (Past 24 Hours) Last Vital Signs Temp 36.5 C 12/21/18 11:38 Pulse 102 H 12/21/18 11:38 Resp 18 12/21/18 11:38 BP 137/94 12/21/18 11:38 Pulse Ox 98 12/21/18 11:38 Results & Data Laboratory Results Laboratory Results - last 24 hr 12/20/18 12/20/18 12/21/18 16:55 19:59 06:19 WBC RBC Hgb Hct MCV MCH MCHC RDW Std Deviation RDW Coeff of Manohar Plt Count MPV PT 26.8 H INR 2.8 H Sodium Potassium Chloride Carbon Dioxide Anion Gap BUN Creatinine Est Cr Clr Drug Dosing Est GFR ( Amer) Est GFR (Non-Af Amer) BUN/Creatinine Ratio Glucose POC Glucose 189 H 121 H Calcium [place] 12/21/18 12/21/18 12/21/18 06:19 06:19 06:19 WBC 8.46 RBC 4.38 Hgb 11.9 L Hct 38.3 MCV 87.4 MCH 27.2 MCHC 31.1 L RDW Std Deviation 50.1 H RDW Coeff of Manohar 15.5 H Plt Count 299 MPV 9.3 PT INR Sodium 139 Potassium 4.1 Chloride 109 H Carbon Dioxide 26 Anion Gap 4.0 BUN 8 Creatinine 0.72 Est Cr Clr Drug Dosing 161.8 Est GFR ( Amer) 125.8 Est GFR (Non-Af Amer) 108.5 BUN/Creatinine Ratio 10.9 Glucose 97 POC Glucose Calcium 8.6 [place] 0.8 12/21/18 12/21/18 12/21/18 07:20 11:39 11:46 WBC RBC Hgb Hct MCV MCH MCHC RDW Std Deviation RDW Coeff of Manohar Plt Count MPV PT INR Sodium Potassium Chloride Carbon Dioxide Anion Gap BUN Creatinine Est Cr Clr Drug Dosing Est GFR ( Amer) Est GFR (Non-Af Amer) BUN/Creatinine Ratio Glucose POC Glucose 92 70 73 Calcium [place] Current Inpatient Medications Current Inpatient Medications: Current Inpatient Medications Acetaminophen (Tylenol) 650 mg PO Q4H PRN PRN Reason: Pain or Fever Stop: 01/18/19 20:10 Atorvastatin Calcium ([facility]itor) [facility] [place] [facility] Stop: 01/19/19 08:59 Last Admin: 12/21/18 08:41 Dose: 10 mg Documented by: Baclofen (Lioresal) 10 mg PO BID [facility] Stop: 01/18/19 20:59 Last Admin: 12/21/18 08:41 Dose: 10 mg Documented by: Clozapine (Clozaril) 12.5 mg PO BID [facility] Stop: 01/19/19 21:44 Last Admin: 12/21/18 08:38 Dose: 12.5 mg Documented by: Dextrose (Dextrose 50%) 25 - 50 ml IV UD PRN; Protocol PRN Reason: Hypoglycemia Protocol Stop: 01/19/19 18:28 Docusate Sodium (Colace) 100 mg PO BID [facility] Stop: 01/18/19 20:59 Last Admin: 12/21/18 08:39 Dose: 100 mg Documented by: Duloxetine HCl (Cymbalta) 30 mg PO DAILY [facility] Stop: 01/19/19 08:59 Last Admin: 12/21/18 08:39 Dose: 30 mg Documented by: Duloxetine HCl (Cymbalta) 60 mg PO QAM [facility] Stop: 01/19/19 08:59 Last Admin: 12/21/18 08:39 Dose: 60 mg Documented by: Ferrous Sulfate (Feosol) 325 mg PO QAM [facility] Stop: 01/19/19 08:59 Last Admin: 12/21/18 08:40 Dose: 325 mg Documented by: Gabapentin (Neurontin) 300 mg PO TID [facility] Stop: 01/18/19 20:59 Last Admin: 12/21/18 08:43 Dose: 300 mg Documented by: Gabapentin (Neurontin) 600 mg PO TID [facility] Stop: 01/18/19 20:59 Last Admin: 12/21/18 08:43 Dose: 600 mg Documented by: Glucagon (Glucagen) 1 mg SQ UD PRN; Protocol PRN Reason: Hypoglycemia Protocol Stop: 01/19/19 18:28 Glucose (Dex4 Glucose) 4 - 8 tabs PO UD PRN; Protocol PRN Reason: Hypoglycemia Protocol Stop: 01/19/19 18:28 Glucose (Glucose 40%) 15 - 30 gm PO UD PRN; Protocol PRN Reason: Hypoglycemia Protocol Stop: 01/19/19 18:28 Ceftriaxone Sodium 2,000 mg/ (Dextrose) 70 mls @ 100 mls/hr IV Q24H [facility]; Protocol Stop: 12/24/18 19:59 Last Infusion: 12/20/18 20:51 Dose: Infused Documented by: Promethazine HCl 6.25 mg/ (Sodium Chloride) 50.25 mls @ 201 mls/hr IV Q6H PRN PRN Reason: Nausea And Vomiting Stop: 01/18/19 20:10 Insulin Aspart (Novolog Flexpen) 0 units SC ACHS [facility] Stop: 01/19/19 20:59 Last Admin: 12/21/18 08:34 Dose: 4 units Documented by: Levothyroxine Sodium (Levothyroxine Sodium) 137 mcg PO DAILYBB [facility] Stop: 01/19/19 06:29 Last Admin: 12/21/18 05:28 Dose: 137 mcg Documented by: Lisinopril (Zestril) 10 mg PO [facility] Stop: 01/19/19 08:59 Last Admin: 12/21/18 08:44 Dose: 10 mg Documented by: [place] Carbonate ([place] Carbonate) 300 mg PO [facility] Stop: 01/19/19 08:59 Last Admin: 12/21/18 08:41 Dose: 300 mg Documented by: [place] Carbonate ([place] Carbonate) 600 mg PO [facility] Stop: 01/18/19 20:59 Last Admin: 12/20/18 20:09 Dose: 600 mg Documented by: [place] Carbonate ([place] Carbonate) 150 mg PO [facility] Stop: 01/19/19 08:59 Last Admin: 12/21/18 08:42 Dose: 150 mg Documented by: Mirabegron (Myrbetriq Er) 25 mg PO [facility] Stop: 01/18/19 20:59 Last Admin: 12/20/18 20:09 Dose: 25 mg Documented by: Miscellaneous (Carbohydrates For Hypoglycemia) 15 - 30 gm PO UD PRN PRN Reason: Hypoglycemia Treatment Stop: 01/19/19 18:28 Polyethylene Glycol (Miralax Powder Packet) 17 gm PO BID PRN PRN Reason: Constipation Stop: 01/18/19 20:10 Potassium Chloride (Klor-Con M10) [facility] meq [facility] [place] [facility] Stop: 01/19/19 08:59 Last Admin: 12/21/18 08:40 Dose: 10 meq Documented by: Topiramate (Topamax) 50 mg PO BID [facility] Stop: 01/18/19 20:59 Last Admin: 12/21/18 08:44 Dose: 50 mg Documented by: Warfarin Sodium (Coumadin) 7.5 mg PO TUTHSA@1600 [facility] Stop: 01/19/19 15:59 Last Admin: 12/20/18 15:41 Dose: 7.5 mg Documented by: Warfarin Sodium (Coumadin) 5 mg PO [id number]@1600 [facility] Stop: 01/18/19 20:10 Last Admin: 12/19/18 21:37 Dose: 5 mg Documented by: CPT Code CPT Code 03094
--- NOTE | 2018-12-21 13:01 | Hospitalist Progress Note ---
Date of Service December 21, 2018 Assessment & Plan (1) Vomiting: Present on admission with nausea and vomiting CT abdomen and pelvis showed no other evidence of acute intra-abdominal pathology. Lipase elevated at 653 on admission Discontinue IVF On antiemetic management Tolerated diet Monitor electrolytes Clinically improves (2) Abnormal urinalysis: UA positive for leukocytes and bacteria Urine cx grew more than 3 organisms (Contamination) since required intermittent straight cath Will d/c IV abx (3) Major depressive disorder with psychotic features: Feels more depressed than usual with A/V hallucinations On lithium, cymbalta Psych on board Case discussed with psych and recommended to increase clorazil by 25 mg daily OK from psych standpoint to discharge to the halfway Continue monitor closely (4) Pulmonary embolism: Recent bilateral PE diagnosis in October 2018 Continue coumadin with INR 2.8 today Monitor PT/INR (5) Diabetes mellitus type 2, controlled: A1c of 5.5 in October 2018 Continue insulin sliding scale Continue monitor BS (6) Bilateral lower extremity edema: Will resume lasix (7) Opiate dependence: History of opiate dependence Use narcotics only when absolutely necessary (8) Hypothyroidism: Continue levothyroxine DVT Ppx: On coumadin with INR 2.2 Code status: FULL Dispo: Will discharge home tomorrow Subjective Pt was seen and examined Lying in bed with no distress Pt looks much better today She is not having any nausea and diarrhea She does not want to be discharge today because she has not eat any solid food she said She said that she felt dizzy early this morning while walking to the bathroom She said that she is having diarrhea Currently denies any chest pain, palpitation and SOB Physical Exam Physical Exam: General- No acute distress Head- atraumatic Eyes- PERRL, EOMI, ENT- oropharynx clear Neck- supple, no JVD Lungs- clear to auscultation Heart- regular rhythm; no murmur Abdomen- normal bowel sounds, soft, nontender Extremities- no calf tenderness Neuro- alert, oriented x 3; PERRL, EOMI; no facial palsy; no dysarthria Skin- warm & dry Results & Data Vital Signs (Past 12 Hours) Vital Signs Temp Pulse Pulse Resp BP BP Pulse Ox 12/21/18 11:38 36.5 C 102 H 18 137/94 98 12/21/18 07:31 95 H 12/21/18 07:19 36.9 C 94 H 20 115/78 96 12/21/18 03:46 36.5 C 87 20 120/81 97 (1) Pulmonary embolism Acute cor pulmonale presence: without acute cor pulmonale Chronicity: acute Pulmonary embolism type: unspecified Qualified Code(s): I26.99 - Other pulmonary embolism without acute cor pulmonale
[2018-12-21] MEDS ORDERED: MICONAZOLE NITRATE POWDER 43 GM EXT PRN (13:40)
[2018-12-21] MEDS: WARFARIN SOD 5 MG TAB PO SCH (15:54)
[2018-12-21] MEDS: FUROSEMIDE 80 MG TAB PO SCH (17:13)
[2018-12-21] MEDS: MIRABEGRON ER 25 MG TAB PO SCH (19:37)
[2018-12-22] MEDS: LEVOTHYROXINE SODIUM 137 MCG TABLET PO SCH (05:31)
[2018-12-22 06:53] LABS: Hematocrit (blood only) 38.4 % (37-47); Hemoglobin 12.1 g/dL (12.0-16.0); Mean Corpuscular Hemoglobin 27.8 pg (25-34); Mean Corpuscular Hgb Conc 31.5 g/dL (32-36); Mean Corpuscular Volume 88.1 fL (80-100); Mean Platelet Volume 9.6 fL (7.4-10.4); Platelet Count 278 K/uL (130-400); RDW Coefficient of Variation 15.5 % (11.5-14.5); RDW Standard Deviation 50.1 fL (36.4-46.3); Red Blood Count 4.36 M/uL (4.2-5.4)
[2018-12-22] MEDS: ATORVASTATIN 10 MG TAB PO SCH (08:03)
[2018-12-22] MEDS: GABAPENTIN 600 MG TAB PO SCH ×2 (08:03→13:47)
[2018-12-22] MEDS: POTASSIUM CHLORIDE 10 MEQ TABCR PO SCH (08:03)
[2018-12-22] MEDS: FUROSEMIDE 80 MG TAB PO SCH ×2 (08:03→17:13)
[2018-12-22] MEDS: TOPIRAMATE 50 MG TAB PO SCH (08:03)
[2018-12-22] MEDS: BACLOFEN 10 MG TAB PO SCH (08:03)
[2018-12-22] MEDS: DOCUSATE SODIUM 100 MG CAP PO SCH (08:03)
[2018-12-22] MEDS: LITHIUM CARBONATE 300 MG TAB PO SCH ×2 (08:04→08:05)
[2018-12-22] MEDS: LISINOPRIL 10 MG TAB PO SCH (08:04)
[2018-12-22] MEDS: cloZAPine 25 MG TAB PO SCH (08:04)
[2018-12-22] MEDS: DULOXETINE HCL 60 MG CAP PO SCH (08:04)
[2018-12-22] MEDS: GABAPENTIN 300 MG CAP PO SCH ×2 (08:04→13:47)
[2018-12-22] MEDS: FERROUS SULFATE 325 MG TAB PO SCH (08:04)
[2018-12-22] MEDS: DULOXETINE HCL 30 MG CAP PO SCH (08:05)
[2018-12-22] MEDS: INSULIN ASPART 100 UNITS/ML 3 ML PEN SC SCH ×3 (08:10→17:36)
--- NOTE | 2018-12-22 13:55 | Psychiatric Progress Note ---
Date of Service December 22, 2018 Impression / Recommendations Impression 33 yo female with history of mood driven psychosis, normal lithium level despite UTI/vomit, may have had exacerbation of symptoms due to no Clozaril for >1 week. 12/20/18 1. when miss greater than 2 days of Clozaril it is to be restarted at 12.5 mg BID with closer monitoring of CBC and retitrated. 2. currently IVF, if unable to tolerate PO and lithium level is nearing 1 it should be held/monitored. 3. will reattempt MSE when more awake as cannot comment on auditory anand at this time. She is typical cooperative inpatient even when quite disorganized and she will be returning to [facility] with close supervision. 12/21/18--will increase Clozaril 25 mg daily to previous dose, titration will have to continue outpatient. [facility] is closed until 12/23 and unclear when can get from [place] to [facility]. Called the temperature control inspector number for [facility] and they are not able to assist and state next rx would need to go to retail pharmacy. Reviewed often complicated with [facility] program and the insurance given [facility] contract. Dr. Menendez aware and we may be able to get 1 day supply prior to discharge. 12.5/50 mg today then 50 mg BID tomorrow. No indication for inpatient psychiatric admission. 12/22/18--tolerating Clozaril. Spoke with pharmacist and will write order to package 50 mg for pm and am if leaves today. [facility] on [facility] has appropriate tabs per liaison, rx called for #14 of 25 mg tabs and #10 of 100 mg of Clozaril. Titration schedule as below: Friday 12/22 50 mg ( 2 of 25 mg) am (given) 50 mg pm. Saturday 12/23 50 mg am 75 mg (3 of 25 mg tabs) pm Sunday 12/24 50 mg am 100 mg pm 12/25 75 mg am 100 mg pm Tuesday 12/26 100 mg am 100 mg pm Wednesday 12/27 100 mg am 125 mg (100+25) pm Thursday 12/28 100 mg am 150 mg (100 + 2 of 25 mg) pm Friday 12/29 100 mg am 175 mg (100 + 3 of 75 mg) pm Friday 12/29 is the date of appointment with [place]. She is due for CBC that day for standard monitoring as per [place]. Previous dose 100 mg am and 200 mg pm can likely be resumed at that time. Please paste into discharge instructions. Risk Factors Assessment Do You Have Access To A Gun?: No Interval History Chief Complaint "I'm upset, didn't want to go back to [facility] so soon". Review of Systems Notes reports diarrhea, denies sialorrhea, reviewed that Clozaril generally causes constipation, confirmed she is sleeping better Subjective Subjective Patient was seen & assessed and interval progress reviewed with nursing and Dr. Menendez. Has been requesting to meet with liaison staff to process longstanding issues with susy anand (father's voice, another suggesting she's a pedophile). She states these symptoms have occurred on/off over the past 6 months and that she had them prior to running out of Clozaril. She is sad to be leaving the [facility] as it is overwhelming to look at new places and she likes the other residents. Nursing contacted [facility] attempting to determine best pharmacy/et c given holiday weekend to ensure has meds to continue titration over next week until seen at [facility]. Physical Exam Psychiatric Orientation: alert Apperance: appropriately groomed Eye Contact: good eye contact Speech: normal rate/rhythm/volume of speech Affect: mood congruent with affect Mood: + anxious mood Thought Process: clear/coherent thought process Thought Content: reality based without delusions Suicidal Thoughts: denies suicidal thoughts Homicidal Thoughts: denies homicidal thoughts Hallucinations: no auditory hallucinations and no visual hallucinations Cognition: attention grossly intact Insight: + fair insight Judgement: + fair judgement Vital Signs (Past 24 Hours) Last Vital Signs Temp 36.6 C 12/22/18 11:51 Pulse 87 12/22/18 11:51 Resp 18 12/22/18 11:51 BP 109/64 12/22/18 11:51 Pulse Ox 100 12/22/18 11:51 Results & Data Laboratory Results Laboratory Results - last 24 hr 12/21/18 12/21/18 12/22/18 17:05 20:31 06:33 WBC 9.50 RBC 4.36 Hgb 12.1 Hct 38.4 MCV 88.1 MCH 27.8 MCHC 31.5 L RDW Std Deviation 50.1 H RDW Coeff of Manohar 15.5 H Plt Count 278 MPV 9.6 POC Glucose 112 H 100 H 12/22/18 12/22/18 07:44 11:45 WBC RBC Hgb Hct MCV MCH MCHC RDW Std Deviation RDW Coeff of Manohar Plt Count MPV POC Glucose 90 92 Current Inpatient Medications Current Inpatient Medications: Current Inpatient Medications Acetaminophen (Tylenol) 650 mg PO Q4H PRN PRN Reason: Pain or Fever Stop: 01/18/19 20:10 Atorvastatin Calcium (Lipitor) 10 mg PO QAM LINNEA Stop: 01/19/19 08:59 Last Admin: 12/22/18 08:03 Dose: 10 mg Documented by: Baclofen (Lioresal) 10 mg PO BID [facility] Stop: 01/18/19 20:59 Last Admin: 12/22/18 08:03 Dose: 10 mg Documented by: Clozapine (Clozaril) 50 mg PO BID [facility] Stop: 01/20/19 20:59 Last Admin: 12/22/18 08:04 Dose: 50 mg Documented by: Dextrose (Dextrose 50%) 25 - 50 ml IV UD PRN; Protocol PRN Reason: Hypoglycemia Protocol Stop: 01/19/19 18:28 Docusate Sodium (Colace) 100 mg PO BID [facility] Stop: 01/18/19 20:59 Last Admin: 12/22/18 08:03 Dose: 100 mg Documented by: Duloxetine HCl (Cymbalta) 30 mg PO DAILY [facility] Stop: 01/19/19 08:59 Last Admin: 12/22/18 08:05 Dose: 30 mg Documented by: Duloxetine HCl (Cymbalta) 60 mg PO QAM [facility] Stop: 01/19/19 08:59 Last Admin: 12/22/18 08:04 Dose: 60 mg Documented by: Ferrous Sulfate (Feosol) 325 mg PO QAM [facility] Stop: 01/19/19 08:59 Last Admin: 12/22/18 08:04 Dose: 325 mg Documented by: Furosemide (Lasix) 80 mg PO BID17 [facility] Stop: 01/20/19 16:59 Last Admin: 12/22/18 08:03 Dose: 80 mg Documented by: Gabapentin (Neurontin) 300 mg PO TID LINNEA Stop: 01/18/19 20:59 Last Admin: 12/22/18 13:47 Dose: 300 mg Documented by: Gabapentin (Neurontin) 600 mg PO TID [facility] Stop: 01/18/19 20:59 Last Admin: 12/22/18 13:47 Dose: 600 mg Documented by: Glucagon (Glucagen) 1 mg SQ UD PRN; Protocol PRN Reason: Hypoglycemia Protocol Stop: 01/19/19 18:28 Glucose (Dex4 Glucose) 4 - 8 tabs PO UD PRN; Protocol PRN Reason: Hypoglycemia Protocol Stop: 01/19/19 18:28 Glucose (Glucose 40%) 15 - 30 gm PO UD PRN; Protocol PRN Reason: Hypoglycemia Protocol Stop: 01/19/19 18:28 Promethazine HCl 6.25 mg/ (Sodium Chloride) 50.25 mls @ 201 mls/hr IV Q6H PRN PRN Reason: Nausea And Vomiting Stop: 01/18/19 20:10 Insulin Aspart (Novolog Flexpen) 0 units SC ACHS [facility] Stop: 01/19/19 20:59 Last Admin: 12/22/18 12:05 Dose: 4 units Documented by: Levothyroxine Sodium (Levothyroxine Sodium) [facility] Stop: 01/19/19 06:29 Last Admin: 12/22/18 05:31 Dose: 137 mcg Documented by: Lisinopril (Zestril) [facility] Stop: 01/19/19 08:59 Last Admin: 12/22/18 08:04 Dose: 10 mg Documented by: [place] Carbonate ([place] Carbonate) 300 mg PO QAM [facility] Stop: 01/19/19 08:59 Last Admin: 12/22/18 08:04 Dose: 300 mg Documented by: [place] Carbonate ([place] Carbonate) 600 mg PO [facility] Stop: 01/18/19 20:59 Last Admin: 12/21/18 19:37 Dose: 600 mg Documented by: [place] Carbonate ([place] Carbonate) 150 [facility] [place] Stop: 01/19/19 08:59 Last Admin: 12/22/18 08:05 Dose: 150 mg Documented by: Miconazole Nitrate (Desenex) 1 appln EXT PRN PRN PRN Reason: AFFECTED SKIN Stop: 01/20/19 13:39 Mirabegron (Myrbetriq Er) 25 mg PO [facility] Stop: 01/18/19 20:59 Last Admin: 12/21/18 19:37 Dose: 25 mg Documented by: Miscellaneous (Carbohydrates For Hypoglycemia) 15 - 30 gm PO UD PRN PRN Reason: Hypoglycemia Treatment Stop: 01/19/19 18:28 Polyethylene Glycol (Miralax Powder Packet) 17 gm PO BID PRN PRN Reason: Constipation Stop: 01/18/19 20:10 Potassium Chloride (Klor-Con M10) 10 meq PO QAM [facility] Stop: 01/19/19 08:59 Last Admin: 12/22/18 08:03 Dose: 10 meq Documented by: Topiramate (Topamax) 50 mg PO BID [facility] Stop: 01/18/19 20:59 Last Admin: 12/22/18 08:03 Dose: 50 mg Documented by: Warfarin Sodium (Coumadin) 7.5 mg PO TUTHSA@1600 [facility] Stop: 01/19/19 15:59 Last Admin: 12/20/18 15:41 Dose: 7.5 mg Documented by: Warfarin Sodium (Coumadin) 5 mg PO SuMoWeFr@1600 [facility] Stop: 01/18/19 20:10 Last Admin: 12/21/18 15:54 Dose: 5 mg Documented by:
[2018-12-22] MEDS ORDERED: Nursing to Pharmacy Communication ONE (14:21)
[2018-12-22] MEDS ORDERED: cloZAPine 25 MG TAB PO SCH (14:30)
--- NOTE | 2018-12-22 14:40 | Hospitalist Progress Note ---
Date of Service December 22, 2018 Assessment & Plan (1) Vomiting: Present on admission with nausea and vomiting CT abdomen and pelvis showed no other evidence of acute intra-abdominal pathology. Lipase elevated at 653 on admission Discontinue IVF On antiemetic management Tolerated diet Monitor electrolytes Resolved (2) Abnormal urinalysis: UA positive for leukocytes and bacteria Urine cx grew more than 3 organisms (Contamination) since required intermittent straight cath D/C IV antibiotic (3) Major depressive disorder with psychotic features: Feels more depressed than usual with A/V hallucinations On lithium, cymbalta Psych on board Case discussed with psych OK from psych standpoint to discharge to the nursing home Continue monitor closely Titration dose for Clozapine: Friday 12/22 50 mg ( 2 of 25 mg) am (given) 50 mg pm. Saturday 12/23 50 mg am 75 mg (3 of 25 mg tabs) pm Sunday 12/24 50 mg am 100 mg pm 12/25 75 mg am 100 mg pm Tuesday 12/26 100 mg am 100 mg pm Wednesday 12/27 100 mg am 125 mg (100+25) pm Thursday 12/28 100 mg am 150 mg (100 + 2 of 25 mg) pm Friday 12/29 100 mg am 175 mg (100 + 3 of 75 mg) pm Friday 12/29 is the date of appointment with [place]. She is due for CBC that day for standard monitoring as per [place]. Previous dose 100 mg am and 200 mg pm can likely be resumed at that time. (4) Pulmonary embolism: Recent bilateral PE diagnosis in October 2018 Continue coumadin with INR 2.8 Follow up with the [facility] (5) Diabetes mellitus type 2, controlled: A1c of 5.5 in October 2018 Continue insulin sliding scale Continue monitor BS (6) Bilateral lower extremity edema: Continue lasix (7) Opiate dependence: History of opiate dependence Use narcotics only when absolutely necessary (8) Hypothyroidism: Continue levothyroxine DVT Ppx: On coumadin with INR 2.2 Code status: FULL Dispo: Will discharge home today Follow up with psych on 12/29 Subjective Pt was seen and examined Sitting in chair with no distress talking on the phone She said that she walked around with no discomfort She tolerated diet and ate all the food She said that she had one episode of diarrhea early this morning and had not had any diarrhea since then Denies any chest pain, palpitation, dizziness, nausea and vomiting Physical Exam Physical Exam: General- No acute distress Head- atraumatic Eyes- PERRL, EOMI, ENT- oropharynx clear Neck- supple, no JVD Lungs- clear to auscultation Heart- regular rhythm; no murmur Abdomen- normal bowel sounds, soft, nontender Extremities- no calf tenderness Neuro- alert, oriented x 3; PERRL, EOMI; no facial palsy; no dysarthria Skin- warm & dry Results & Data Vital Signs (Past 12 Hours) Vital Signs Temp Pulse Pulse Resp BP BP Pulse Ox 12/22/18 11:51 36.6 C 87 18 109/64 100 12/22/18 09:00 96 H 12/22/18 07:29 36.9 C 91 H 20 130/83 97 12/22/18 03:42 122/76 12/22/18 03:10 36.8 C 95 H 20 94/63 L 97 (1) Pulmonary embolism Acute cor pulmonale presence: without acute cor pulmonale Chronicity: acute Pulmonary embolism type: unspecified Qualified Code(s): I26.99 - Other pulmonary embolism without acute cor pulmonale
[2018-12-22] MEDS: WARFARIN SOD 5 MG TAB PO SCH (17:13)
--- NOTE | 2018-12-23 08:31 | Discharge Summary ---
Date of Service December 22, 2018 Admission HPI Per Admitting Provider This is a 33yo F with a PMH of DM II, recent bilateral PEs in October 2018 on coumadin, severe MDD with psychotic features, opioid dependence in remission, HTN, and other medical problems listed below who presents with vomiting starting earlier today. Patient has not been in normal state of health for the past 3 days, endorsing intermittent abdominal cramping, nausea, sweating and dizziness. Has been staying hydrated and endorses frequent urination. Had 3 episodes of vomiting food contents today and another episode in the ED after antiemetics. Received Reglan and Compazine but is still nauseated. Denies any fever or chills, chest pain, dysuria, hematuria or constipation. Endorses ongoing pleuritic chest pains and shortness of breath in setting of PEs. Also complaining of green colored bowel movements x 3 weeks. No sick contacts. Of note, has missed 9 days of clozapine after missing last psychiatry appointment. Follows with Lora at [facility]. Has been feeling more depressed over the past week and endorses auditory hallucinations of "voices saying mean things to me" and seeing " people". No SI/HI. Denies recent drug or alcohol use. Afebrile with BP initially 97/62. Mild leukocytosis of 12.9. Electrolytes WNL. CT abd/pelvis without acute abnormality. UA with trace leuk esterase and 1+ bacteria. [place] level is normal at 0.6 Admission Exam Per Admitting Provider General Appearance: WD/WN, vitals as above, NAD, sitting up in bed, pleasant, conversing easily, morbidly obese Head: normocephalic, atraumatic Eyes: normal inspection, PERRL, conjunctivae normal, anicteric sclerae ENT: external ear and nose normal, oropharynx normal Neck: trachea midline, no thyromegaly normal visual inspection Respiratory: normal respiratory effort, lungs clear to auscultation, no wheeze, rales, rhonchi. Normal insp/exp effort, no accessory muscle use Cardiovascular: regular rate, rhythm, no murmur, normal peripheral pulses, no BLE edema. Vessels: no JVD or carotid bruit Chest: normal inspection of chest Abdomen/GI: normal bowel sounds, soft, nontender, no hepatosplenomegaly Extremities/Musculoskelatal: no cyanosis or clubbing, extremities motor strength 5/5 Neurologic: PERRL, EOMI, accommodation nl, no face palsy, no dysarthria CN's II-XI intact bilaterally and moves all extremities Psychiatric: A&O x 3, depressed mood Skin: no rashes, normal color, warm/dry Principal Diagnosis Vomiting Major depressive disorder with psychotic features Pulmonary embolism Opiate dependence Hypothyroidism Discharge Exam General- No acute distress Head- atraumatic Eyes- PERRL, EOMI, ENT- oropharynx clear Neck- supple, no JVD Lungs- clear to auscultation Heart- regular rhythm; no murmur Abdomen- normal bowel sounds, soft, nontender Extremities- no calf tenderness Neuro- alert, oriented x 3; PERRL, EOMI; no facial palsy; no dysarthria Skin- warm & dry Discharge Data Allergies Allergy/AdvReac Type Severity Reaction Status Date / Time erythromycin base Allergy Mild Unknown Verified 12/19/18 15:56 cephalexin Allergy Unknown . Verified 12/19/18 15:56 Penicillins Allergy Unknown . Verified 12/19/18 15:56 Sulfa (Sulfonamide Allergy Unknown . Verified 12/19/18 15:56 Antibiotics) Consultations 12/19/18 18:30 ED Decision to Admit Stat 12/19/18 20:11 Consult Case Management - Discharge Planning Routine Consult Psychiatry Routine Ordered Studies 12/19/18 17:12 CT abd pelvis IV con only Stat CT abd pelvis IV con only CLINICAL HISTORY: 33 years-old Female presenting with generalized abdominal pain, nausea, vomiting, and diarrhea. TECHNIQUE: Multidetector CT of the abdomen and pelvis was performed after the administration of intravenous contrast. IV contrast: 94 mL of Optiray 320. One or more dose lowering techniques were used consistent with the principles of ALARA (as low as reasonably achievable), including automatic exposure control, mA or kV adjustment to individual patient size, and/or use of iterative reconstruction. COMPARISON: 11/18/2018. CT DOSE (mGy.cm): The estimated cumulative dose is 1341.55 mGycm. 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 Orthopedic hardware noted in the lumbar spine. Lung bases: Normal heart size. No pericardial or pleural effusion. No focal infiltrate or nodule at the lung bases. Liver: Normal morphology. Density suggestive of hepatic steatosis. No focal lesion. Patent hepatic vasculature. Biliary: No intrahepatic or extrahepatic biliary ductal dilatation. Gallbladder surgically absent. Pancreas: Normal. Spleen: Normal. Splenule noted. Adrenal glands: Normal. Kidneys and ureters: Normal. No hydronephrosis. Bladder: Incompletely evaluated secondary to underdistention. Pelvic organs: Uterus and ovaries normal. Bowel: Normal appendix. No bowel obstruction. Peritoneal cavity: No free fluid or intraperitoneal gas. Lymph nodes: No enlarged lymph nodes in the abdomen or pelvis. Vasculature: Aorta and IVC patent and normal in caliber. Abdominal wall: Foci of subcutaneous fat infiltration in the right anterior abdominal wall likely related to medication administration. Musculoskeletal: Posterior lumbar fusion hardware. IMPRESSION: 1. Hepatic steatosis. Correlate with liver function tests to exclude steatohepatitis as a cause for abdominal pain. No other evidence of acute intra- abdominal pathology. 2. Status post cholecystectomy. Electronically signed by: Cale Quintanilla M.D. 12/19/2018 5:57 PM Dictated: 12/19/181750 Transcribed: 12/19/181750 XR chest 1V portable CLINICAL HISTORY: Chest Pain dyspnea COMPARISON STUDY: 11/18/2018 FINDINGS: The bones soft tissues and hemidiaphragms are normal. The cardiomediastinal silhouette is normal. The lungs are clear. The pulmonary vasculature is normal. IMPRESSION: Negative chest. The above report was generated using voice recognition software. It may contain grammatical, syntax or spelling errors. Electronically signed by: See Vergara M.D. 12/19/2018 3:47 PM Dictated: 12/19/18 1546 Transcribed: 12/19/18 154 Hospital Course (1) Vomiting: Present on admission with nausea and vomiting CT abdomen and pelvis showed no other evidence of acute intra-abdominal pathology. Lipase elevated at 653 on admission Discontinue IVF On antiemetic management Tolerated diet Monitor electrolytes Resolved (2) Abnormal urinalysis: UA positive for leukocytes and bacteria Urine cx grew more than 3 organisms (Contamination) since required intermittent straight cath D/C IV antibiotic (3) Major depressive disorder with psychotic features: Feels more depressed than usual with A/V hallucinations On lithium, cymbalta Psych on board Case discussed with psych ARLETTE from psych standpoint to discharge to the intermediate Continue monitor closely Titration dose for Clozapine: Friday 12/22 50 mg ( 2 of 25 mg) am (given) 50 mg pm. Saturday 12/23 50 mg am 75 mg (3 of 25 mg tabs) pm Sunday 12/24 50 mg am 100 mg pm 12/25 75 mg am 100 mg pm Tuesday 12/26 100 mg am 100 mg pm Wednesday 12/27 100 mg am 125 mg (100+25) pm Thursday 12/28 100 mg am 150 mg (100 + 2 of 25 mg) pm Friday 12/29 100 mg am 175 mg (100 + 3 of 75 mg) pm Friday 12/29 is the date of appointment with [place]. She is due for CBC that day for standard monitoring as per [place]. Previous dose 100 mg am and 200 mg pm can likely be resumed at that time. (4) Pulmonary embolism: Recent bilateral PE diagnosis in October 2018 Continue coumadin with INR 2.8 Follow up with the [facility] clinic (5) Diabetes mellitus type 2, controlled: A1c of 5.5 in October 2018 Continue insulin sliding scale Continue monitor BS (6) Bilateral lower extremity edema: Continue lasix (7) Opiate dependence: History of opiate dependence Use narcotics only when absolutely necessary (8) Hypothyroidism: Continue levothyroxine DVT Ppx: On coumadin with INR 2.2 Code status: FULL Dispo: Will discharge home today Follow up with psych on 12/29 Total Time Total Time Spent Total Time Spent (In Minutes): 35 minutes Total Time Includes: Examination of the Patient, Discharge Planning, Medication Reconciliation, Communication With Other Providers and Other Discharge Plan Discharge Items Patient Disposition: Home - Self-Care Reason For Visit: NAUSEA AND VOMITING Discharge Diagnosis: Vomiting Major depressive disorder with psychotic features Pulmonary embolism Opiate dependence Hypothyroidism Discharge Goals: Decrease discomfort, Improve disease control, Improve function and Improve nutritional status Activity: Resume your previous activity Activity Comment: As tolerated Non-emergency contact: Primary Care Provider and Psychiatrist Call non-emergency contact if: you have any medication questions and your temperature is above 101 Follow-up/Referrals: Fernando Stafford, [Primary Care Provider] - Diet: Regular Addtl Provider Instructions: Will discharge today to the intermediate Follow up with your primary care provider within 1 week ( Office will call you for the appointment) Follow up with the coumadin clinic to monitor PT/INR (Last INR 2.8 on 12/21/18) Follow up with your Psychiatry (Friday 12/29 is the date of appointment with [place]) Check CBC on 12/29 while on Clozapine Pharmacy will dispense home dose for Clozapine for tonight and tomorrow morning Continue monitor closely for abnormal behavior and psychosis Clozapine titration schedule dose: Friday 12/22 50 mg ( 2 of 25 mg) am (given) 50 mg pm. Saturday 12/23 50 mg am 75 mg (3 of 25 mg tabs) pm Sunday 12/24 50 mg am 100 mg pm 12/25 75 mg am 100 mg pm Tuesday 12/26 100 mg am 100 mg pm Wednesday 12/27 100 mg am 125 mg (100+25) pm Thursday 12/28 100 mg am 150 mg (100 + 2 of 25 mg) pm Friday 12/29 100 mg am 175 mg (100 + 3 of 75 mg) pm Friday 12/29 is the date of appointment with [place]. She is due for CBC that day for standard monitoring as per [place]. Previous dose 100 mg am and 200 mg pm can likely be resumed at that time. Prescriptions: New clozapine 25 mg tablet 25 mg PO DAILY Qty: 14 RF: 0 clozapine 100 mg tablet 100 mg PO DAILY Qty: 10 RF: 0 Continued atorvastatin [Lipitor] 10 mg tablet 10 mg PO QAM RF: 0 potassium chloride 10 mEq tablet extended release 10 meq PO QAM RF: 0 ondansetron 8 mg tablet,disintegrating 8 mg PO DIRECTED PRN (Reason: Nausea) RF: 0 lithium carbonate 600 mg capsule 600 mg PO HS RF: 0 docusate sodium [Colace] 100 mg Capsule 100 mg PO BID RF: 0 topiramate 50 mg tablet 50 mg PO BID RF: 0 duloxetine 30 mg capsule,delayed release(DR/EC) 30 mg PO DAILY RF: 0 metformin 500 mg tablet 500 mg PO BIDM RF: 0 gabapentin 600 mg tablet 600 mg PO TID RF: 0 lithium carbonate 150 mg capsule 150 mg PO QAM RF: 0 baclofen 10 mg tablet 10 mg PO BID RF: 0 lithium carbonate 300 mg capsule 300 mg PO QAM RF: 0 lisinopril 10 mg tablet 10 mg PO QAM RF: 0 gabapentin 300 mg capsule 300 mg PO TID RF: 0 polyethylene glycol 3350 17 gram/dose powder 17 g PO BID PRN (Reason: Constipation) RF: 0 ferrous sulfate 325 mg (65 mg iron) Tablet,Delayed Release (Dr/Ec) 325 mg PO QAM RF: 0 duloxetine 60 mg capsule,delayed release(DR/EC) 60 mg PO QAM RF: 0 Myrbetriq 25 mg Tablet Extended Release 24 Hr 25 mg PO HS RF: 0 Lactobacillus acidophilus Capsule 10 mg PO QAM RF: 0 furosemide 80 mg tablet 80 mg PO BID RF: 0 levothyroxine 137 mcg tablet 137 mcg PO QAM RF: 0 warfarin 5 mg Tablet 7.5 mg PO TUTHSA@1600 RF: 0 warfarin [Coumadin] 5 mg tablet 5 mg PO SUMOWEFR@1600 RF: 0 Discontinued clozapine 200 mg tablet 200 mg PO HS RF: 0 Stand-Alone Forms: [facility] Discharge Orders: Discharge Order (Routine); Ordered 12/22/18 Ordered By: Gladys Menendez Admission Data Admit Date/Time: 12/21/18 15:24 Attending Provider: Gladys Menendez Admit Provider: Carissa Cabrera Primary Care Provider: Fernando Stafford Other Providers: Tanner Friend ; Lesa [place] ; Royce Vieyra ; Alejo Spencer ; Michael Dunaway ; Nathalie Wyatt ; Raciel Sullivan ; Arabella Cornell ; Patrica Iqbal ; Colton Cole ; Lubna Loo ; Estelita Wyatt ; Pete Patton I ; Noreen Alva ; [facility]. ; Nikki Hernandez ; Alexei York ; Carissa Cabrera Service: Telemetry Medical Other Interventions: Discharge Summary Assessment (RN) Last Done: 12/22/18 17:56 DC Date/Time DO NOT enter until pt leaves facility: 12/22/18 18:30
== END 2018-12-22 18:30 | disposition home or self-care (01) | DRG 392 ==
LOC: 2N 15:03 → ED 15:03 → 2N 19:54

== ENCOUNTER 2019-01-01 14:54 | Inpatient (IN) ==
[2019-01-01] MEDS ORDERED: ALUMINUM/MAGNESIUM SUSP 18 ML, LIDOCAINE HCL VISCOUS 2% 6 ML, BARCODE IDENTIFIER 1 EA PO ONE (15:02)
[2019-01-01] MEDS ORDERED: FAMOTIDINE 20MG/5ML IV PUSH IV STA (15:02)
[2019-01-01] MEDS ORDERED: PROMETHAZINE 25 MG/51 ML BAG IV STA (15:02)
[2019-01-01] MEDS ORDERED: SODIUM CHLORIDE 0.9% 1000ML 1,000 ML IV SCH (15:15)
[2019-01-01 15:37] LABS: Basophils # (auto) 0.02 K/uL (0-0.2); Basophils % (auto) 0.2 %; Hemoglobin 12.4 g/dL (12.0-16.0); Immature Granulocytes # (auto) 0.02 K/uL (0.00-0.02); Immature Granulocytes % (auto) 0.2 %; Lymphocytes % (auto) 13.6 %; Mean Corpuscular Hemoglobin 27.7 pg (25-34); Mean Corpuscular Hgb Conc 31.8 g/dL (32-36); Mean Corpuscular Volume 87.2 fL (80-100); Mean Platelet Volume 9.4 fL (7.4-10.4); Monocytes # (auto) 0.75 K/uL (0.11-0.59); Monocytes % (auto) 5.7 %; Neutrophils % (auto) 80.3 %; Platelet Count 309 K/uL (130-400); RDW Standard Deviation 47.9 fL (36.4-46.3); Red Blood Count 4.47 M/uL (4.2-5.4); White Blood Count 13.19 K/uL (4.8-10.8)
--- NOTE | 2019-01-01 15:37 | XRay Report ---
SINGLE VIEW CHEST CLINICAL HISTORY: Atypical chest pain. FINDINGS: 2 AP, portable, upright chest radiographs are compared to study dated 12/19/2018 and correla maximino with chest CT dated 11/18/2018. The examination is degraded by portable technique, large body habi tus, and patient rotation. The cardiomediastinal silhouette is unremarkable. There are low lung volu mes. The lungs and pleural spaces are clear. No pneumothorax is seen. The bony thorax is grossly inta ct. Fusion hardware is noted in the lower cervical spine. IMPRESSION: Low lung volumes with no active disease in the chest. Electronically signed by: Minor Poole M.D. 01/01/2019 3:35 PM
[2019-01-01] MEDS ORDERED: GI COCKTAIL ED USE PO ONE (15:41)
[2019-01-01 15:55] LABS: Alanine Aminotransferase 48 U/L (12-78); Albumin Level 3.2 gm/dl (3.4-5.0); Aspartate Aminotransferase 31 U/L (15-37); BUN Creatinine Ratio 9.5 (10-20); Blood Urea Nitrogen 9 mg/dl (7-18); Calcium 9.3 mg/dl (8.5-10.1); Carbon Dioxide 26 mmol/L (21-32); Chloride 106 mmol/L (98-107); Creatinine Clr Calc Pharmacy 125.4 ml/min; Est GFR (African American) 91.1; Est GFR (Non-African American) 78.6; Glucose 92 mg/dl (70-99); Lipase 184 U/L (73-393); Potassium 3.5 mmol/L (3.5-5.1); Sodium 141 mmol/L (136-145)
[2019-01-01 16:00] LABS: Albumin Globulin Ratio 0.8 (0.9-2); Alkaline Phosphatase 91 U/L (45-117); Bilirubin,Total 0.2 mg/dl (0.2-1); Globulin 3.8 gm/dl (2.5-4.0); Troponin I < 0.015 ng/ml (0-0.045)
[2019-01-01 16:01] LABS: INR 2.4 (0.9-1.1); Partial Thromboplastin Ratio 1.7; Prothrombin Time 22.9 Seconds (9.0-12.0)
[2019-01-01 16:07] LABS: Partial Thromboplastin Time 45.9 Seconds (21.0-31.0)
[2019-01-01] MEDS ORDERED: ONDANSETRON INJ 2 MG/ML 2 ML VIAL IV STA (16:46)
[2019-01-01] MEDS ORDERED: METOCLOPRAMIDE HCL INJ 5 MG/ML 2 ML VIAL IV STA (16:55)
[2019-01-01] MEDS ORDERED: DiphenhydrAMINE HCL 50 MG/ML VIAL IV STA (16:55)
[2019-01-01] MEDS ORDERED: IOVERSOL 100ml IV PRN (17:19)
--- NOTE | 2019-01-01 17:39 | CT Scan Report ---
CT abd pelvis IV con only CLINICAL HISTORY: 33 years-old Female presenting with vomiting, upper abdominal pain. TECHNIQUE: Multidetector CT of the abdomen and pelvis was performed after the administration of intra venous contrast. IV contrast: 94 mL of Optiray 320. One or more dose lowering techniques were used co nsistent with the principles of ALARA (as low as reasonably achievable), including automatic exposure control, mA or kV adjustment to individual patient size, and/or use of iterative reconstruction. COMPARISON: 12/19/2018. CT DOSE (mGy.cm): The estimated cumulative dose is 1916.19 mGy.cm. 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 Lumbar fusion hardware. Lung bases: Normal heart size. No pericardial or pleural effusion. No focal infiltrate or nodule at t he lung bases. Liver: Normal morphology. Density suggestive of hepatic steatosis. No focal lesion. Patent hepatic va sculature. Biliary: No intrahepatic or extrahepatic biliary ductal dilatation. Gallbladder surgically absent. Pancreas: Normal. Spleen: Normal. Splenule noted. Adrenal glands: Normal. Kidneys and ureters: Normal. No hydronephrosis. Bladder: Circumferential bladder wall thickening. Pelvic organs: Uterus and ovaries normal. Bowel: Normal appendix. No bowel obstruction. Peritoneal cavity: No free fluid or intraperitoneal gas. Lymph nodes: No enlarged lymph nodes in the abdomen or pelvis. Vasculature: Aorta and IVC patent and normal in caliber. Abdominal wall: Normal. Musculoskeletal: Degenerative changes of the spine. Lumbar fusion hardware. IMPRESSION: 1. Hepatic steatosis. Correlate with liver function tests to exclude steatohepatitis as a cause for abdominal pain. 2. Circumferential bladder wall thickening may be due to under distention or cystitis. Correlate wit h urinalysis. 3. Post cholecystectomy. Electronically signed by: Cale Quintanilla M.D. 01/01/2019 5:37 PM
[2019-01-01 17:57] LABS: Appearance Urine Cloudy (Clear); Bacteria Urine Automated 1+ (Negative); Bilirubin Urine Negative (Negative); Blood Urine Negative (Negative); Color Urine Yellow; Epithelial Cell Urine Auto >30 /lpf (0-5); Glucose Urine UA Negative (Negative); Ketones Urine Negative (Negative); Leukocyte Esterase Urine 1+ (Negative); Nitrite Urine Negative (Negative); Protein Urine Negative (Negative); RBC Urine Automated 0-4 /hpf (0-4); Urobilinogen Urine Negative (Negative)
[2019-01-01] MEDS ORDERED: KETOROLAC TROMETHAMINE 15 MG/ML VIAL IV ONE (18:52)
[2019-01-01] MEDS ORDERED: cefTRIAXone SODIUM 1,000 MG/50 ML BAG IV STA (19:16)
[2019-01-01] MEDS ORDERED: NITROGLYCERIN SL 0.4 MG/TAB TAB SL STA (20:07)
[2019-01-01] MEDS ORDERED: CEFEPIME 2,000 MG/20 ML VIAL IV STA (20:07)
[2019-01-01] MEDS ORDERED: OXYCODONE HCL IR 5 MG TAB (IMMEDIATE RELEASE) PO PRN (20:09)
--- NOTE | 2019-01-01 20:10 | History & Physical Report ---
Date of Service January 01, 2019 Assessment & Plan (1) Sepsis: Secondary to complicated UTI hx neurogenic bladder as per records Past history of ceftriaxone resistant E. coli on outpatient urine cultures 2011. Acute gastroenteritis rule out C. difficile Chest pain Definitely with a musculoskeletal component with reproducible tenderness Rule out ACS given risk factors and relief with nitroglycerin Acute gastroenteritis rule out C. difficile hypertension, BP stable hyperlipidemia on statin Rx recurrent PE/DVT on Coumadin, INR therapeutic DM 2 on oral medications, well-controlled as of recent outpatient hemoglobin A1c of 5.25 October 2018 mood disorder, at baseline past history opioid dependence as per records PCU Cultures, check lactic acid IV Cefepime for now Stool C. difficile Hold home laxatives for now Aspirin for CAD prevention until ACS ruled out Dobutamine stress echo if a.m. troponin within normal limits Hold home laxatives for now Check stool C. difficile Continue home neuropsychotropic meds Facilitate Clozapine home Rx upon discharge ISS BG goal 1 40-1 80, may need basal insulin DVT prophylaxis Coumadin INR goal between 2 and 3 Full code History of Present Illness Chief Complaint: Chest pain, abdominal pain, nausea vomiting Primary Care Provider: Fernando Stafford, History obtained from patient and records. Medical history significant for hypertension, hyperlipidemia GERD, recurrent PE/DVT on Coumadin, DM 2 on oral medications, mood disorder, history neurogenic bladder as per records, past history opioid dependence as per records, polycystic ovaries as per records. Recent confinement November 2018 for vomiting, UTI symptoms. This morning patient woke up with nausea, vomiting, pleuritic substernal pain without radiation, S OB symptoms. Achy abdominal pain with dark green loose stools. Patient also complaining of right leg discomfort. Patient also ran out of Clozapine Rx. At the ER, patient received Ceftriaxone for possible UTI. Chest pain relieved by nitroglycerin given at the emergency room. Medical History as above Surgical History : Neck surgery, knee surgery, eardrum surgery, cholecystectomy, low back surgery Family History : Heart disease, colon cancer, dementia, diabetes, lung cancer Personal/Social history : Non-smoker, no EtOH intake, disabled Allergies Allergy/AdvReac Type Severity Reaction Status Date / Time erythromycin base Allergy Mild Unknown Verified 12/30/18 07:50 cephalexin Allergy Unknown . Verified 12/30/18 07:50 Penicillins Allergy Unknown . Verified 12/30/18 07:50 Sulfa (Sulfonamide Allergy Unknown . Verified 12/30/18 07:50 Antibiotics) Home Medications Home Medications Medication Instructions Recorded Confirmed Type Lactobacillus acidophilus 1 cap PO QAM 05/23/18 01/01/19 History baclofen 5 mg PO BID 05/23/18 01/01/19 History duloxetine 60 mg PO QAM 05/23/18 01/01/19 History ferrous sulfate 325 mg PO QAM 05/23/18 01/01/19 History lisinopril 10 mg PO QAM 05/23/18 01/01/19 History lithium carbonate 150 mg PO QAM 05/23/18 01/01/19 History metformin 500 mg PO BIDM 05/23/18 01/01/19 History polyethylene glycol 3350 17 g PO BID PRN 05/23/18 01/01/19 History atorvastatin [Lipitor] 10 mg PO QAM 08/28/18 01/01/19 History docusate sodium [Colace] 100 mg PO BID 08/28/18 01/01/19 History lithium carbonate 600 mg PO HS 08/28/18 01/01/19 History ondansetron 8 mg PO DIRECTED PRN 08/28/18 01/01/19 History potassium chloride 10 meq PO QAM 08/28/18 01/01/19 History duloxetine 30 mg PO QAM 12/09/18 01/01/19 History furosemide 160 mg PO QAM 12/19/18 01/01/19 History levothyroxine 137 mcg PO QAM 12/19/18 01/01/19 History warfarin 7.5 mg PO 3XWK 12/19/18 01/01/19 History clozapine 200 mg tablet 200 mg PO HS 12/30/18 01/01/19 History gabapentin 800 mg tablet 800 mg PO QID 30 Days #120 tab 12/30/18 01/01/19 Rx risperidone microspheres 37.5 mg/2 37.5 mg IM Q14D 12/30/18 01/01/19 History mL intramuscular syringe topiramate 100 mg tablet 100 mg PO BID 30 Days #60 tab 12/30/18 01/01/19 Rx clozapine 100 mg PO DIRECTED 01/01/19 01/01/19 History lithium carbonate 300 mg PO QAM 01/01/19 01/01/19 History mirabegron [Myrbetriq] 25 mg PO HS 01/01/19 01/01/19 History warfarin 5 mg PO 4XWK 01/01/19 01/01/19 History Past Med/Surg History Medical History Diabetes mellitus type 2, controlled (Chronic) Constipation (Chronic) Anxiety (Chronic) GERD (gastroesophageal reflux disease) (Chronic) Hypothyroidism (Chronic) Cervicalgia (Chronic) Migraine headache (Chronic) Back pain (Acute) Chronic pain associated with significant psychosocial dysfunction (Chronic) Drug-seeking behavior (Acute) Major depressive disorder with psychotic features (Chronic) Opiate dependence (Chronic) UTI (urinary tract infection) (Acute) Post-concussion headache (Inactive) Pulmonary embolism (Inactive) Surgical History H/O discectomy (Resolved) H/O arthroscopy of left knee (Resolved) Family History Mother Dementia Hypothyroidism Brother Coronary heart disease Brother Diabetes Father Heart disease Social History Preferred Language: Somali Communication Ability: Effective Customer Experience Specialist Required: No Beliefs That Will Affect Care: None marital status: Single Current Living Situation: Other Current Living Situation Comment: senior care Other Information That Helps Us Care for You: No Feels Safe at Home: Yes Safety Concerns: Feels Safe At This Time Smoking Status: Never smoker Do You Dip or Chew Tobacco: No ; Second Hand Exposure: No ; Tobacco Cessation Education Requested by Patient: No Hx Alcohol Use: No Hx Substance Use: No Review of Systems Review of Systems: As per HPI, all 10 systems reviewed, all other ROS negative Physical Exam Physical Exam: GENERAL: Slightly uncomfortable and anxious, obese, no respiratory distress SKIN: Normal color, warm HEENT: [place] palpebral conjunctivae, no ptosis, dry buccal mucosa NECK : Supple, short neck no tenderness CHEST : CTA, sternal tenderness HEART : RRR, no obvious murmurs ABDOMEN: Some distention, nonspecific tenderness on light palpation EXTREMITIES : RLE swelling, minimal LE tenderness, no other conspicuous deformities noted NEUROLOGIC : Coherent, no facial asymmetry, no other gross focality Results & Data Vital Signs (Past 12 Hours) Vital Signs Temp Pulse Resp BP Pulse Ox 01/01/19 19:01 89 20 118/70 01/01/19 19:00 87 99 01/01/19 18:30 87 26 H 117/89 99 01/01/19 18:00 91 H 17 110/72 01/01/19 17:41 93 H 26 H 01/01/19 17:40 93 H 25 H 122/90 01/01/19 17:30 87 123/76 100 01/01/19 17:28 87 28 H 100 01/01/19 17:27 89 23 140/74 99 01/01/19 17:01 90 18 125/29 L 01/01/19 17:00 88 23 01/01/19 16:31 86 34 H 134/59 L 01/01/19 16:30 91 H 19 01/01/19 16:00 93 H 27 H 111/96 100 01/01/19 15:46 95 H 22 107/79 100 01/01/19 15:30 90 23 98 01/01/19 15:08 97 H 25 H 96 01/01/19 15:07 97 01/01/19 15:02 36.9 C 101 H 20 104/75 98 01/01/19 14:57 97 H 37 H 104/75 97 Laboratory Results Laboratory Results WBC 13.19 K/uL (4.8-10.8) H 01/01/19 15:20 RBC 4.47 M/uL (4.2-5.4) 01/01/19 15:20 Hgb 12.4 g/dL (12.0-16.0) 01/01/19 15:20 Hct 39.0 % (37-47) 01/01/19 15:20 MCV 87.2 fL (80-100) 01/01/19 15:20 MCH 27.7 pg (25-34) 01/01/19 15:20 MCHC 31.8 g/dL (32-36) L 01/01/19 15:20 RDW Std Deviation 47.9 fL (36.4-46.3) H 01/01/19 15:20 RDW Coeff of Manohar 15.0 % (11.5-14.5) H 01/01/19 15:20 Plt Count 309 K/uL (130-400) 01/01/19 15:20 MPV 9.4 fL (7.4-10.4) 01/01/19 15:20 Immature Gran % (Auto) 0.2 % 01/01/19 15:20 Neut % (Auto) 80.3 % 01/01/19 15:20 Lymph % (Auto) 13.6 % 01/01/19 15:20 Barber % (Auto) 5.7 % 01/01/19 15:20 Eos % (Auto) 0.0 % 01/01/19 15:20 Baso % (Auto) 0.2 % 01/01/19 15:20 Immature Gran # (Auto) 0.02 K/uL (0.00-0.02) 01/01/19 15:20 Neut # (Auto) 10.60 K/uL (1.4-6.5) H 01/01/19 15:20 Lymph # (Auto) 1.80 K/uL (1.2-3.4) 01/01/19 15:20 Barber # (Auto) 0.75 K/uL (0.11-0.59) H 01/01/19 15:20 Eos # (Auto) 0.00 K/uL (0-0.5) 01/01/19 15:20 Baso # (Auto) 0.02 K/uL (0-0.2) 01/01/19 15:20 PT 22.9 Seconds (9.0-12.0) H 01/01/19 15:20 INR 2.4 (0.9-1.1) H 01/01/19 15:20 APTT 45.9 Seconds (21.0-31.0) H* 01/01/19 15:20 PTT Ratio 1.7 01/01/19 15:20 Sodium 141 mmol/L (136-145) 01/01/19 15:20 Potassium 3.5 mmol/L (3.5-5.1) 01/01/19 15:20 Chloride 106 mmol/L (98-107) 01/01/19 15:20 Carbon Dioxide 26 mmol/L (21-32) 01/01/19 15:20 Anion Gap 8.0 (3-11) 01/01/19 15:20 BUN 9 mg/dl (7-18) 01/01/19 15:20 Creatinine 0.94 mg/dl (0.6-1.2) 01/01/19 15:20 Est Cr Clr Drug Dosing 125.4 ml/min 01/01/19 15:20 Est GFR ( Amer) 91.1 01/01/19 15:20 Est GFR (Non-Af Amer) 78.6 01/01/19 15:20 BUN/Creatinine Ratio 9.5 (10-20) L 01/01/19 15:20 Glucose 92 mg/dl (70-99) 01/01/19 15:20 Calcium 9.3 mg/dl (8.5-10.1) 01/01/19 15:20 Total Bilirubin 0.2 mg/dl (0.2-1) 01/01/19 15:20 AST 31 U/L (15-37) 01/01/19 15:20 ALT 48 U/L (12-78) 01/01/19 15:20 Alkaline Phosphatase 91 U/L (45-117) 01/01/19 15:20 Troponin I < 0.015 ng/ml (0-0.045) 01/01/19 15:20 Total Protein 7.0 gm/dl (6.4-8.2) 01/01/19 15:20 Albumin 3.2 gm/dl (3.4-5.0) L 01/01/19 15:20 Globulin 3.8 gm/dl (2.5-4.0) 01/01/19 15:20 Albumin/Globulin Ratio 0.8 (0.9-2) L 01/01/19 15:20 Lipase 184 U/L (73-393) 01/01/19 15:20 Urine Color Yellow 01/01/19 17:30 Urine Appearance Cloudy (Clear) A 01/01/19 17:30 Urine pH 8.0 (4.5-7.5) H 01/01/19 17:30 Ur Specific [place] 1.020 (1.000-1.030) 01/01/19 17:30 Urine Protein Negative (Negative) 01/01/19 17:30 Urine Glucose (UA) Negative (Negative) 01/01/19 17:30 Urine Ketones Negative (Negative) 01/01/19 17:30 Urine Blood Negative (Negative) 01/01/19 17:30 Urine Nitrite Negative (Negative) 01/01/19 17:30 Urine Bilirubin Negative (Negative) 01/01/19 17:30 Urine Urobilinogen Negative (Negative) 01/01/19 17:30 Ur Leukocyte Esterase 1+ (Negative) H 01/01/19 17:30 Urine WBC (Auto) 1-5 /hpf (0-5) 01/01/19 17:30 Urine RBC (Auto) 0-4 /hpf (0-4) 01/01/19 17:30 U Hyaline Cast (Auto) 1-5 /lpf (0-5) 01/01/19 17:30 U Epithel Cells (Auto) >30 /lpf (0-5) H 01/01/19 17:30 Urine Bacteria (Auto) 1+ (Negative) H 01/01/19 17:30 Diagnostic Findings Chest x-ray : Low lung volumes with no active disease in the chest. EKG as per my interpretation : Rate 100, NSR, J-point elevation anterior leads CT abdomen pelvis: 1. Hepatic steatosis. Correlate with liver function tests to exclude steatohepatitis as a cause for abdominal pain. 2. Circumferential bladder wall thickening may be due to under distention or cystitis. Correlate with urinalysis. 3. Post cholecystectomy. LE venous Doppler study: No evidence of deep venous thrombosis.
[2019-01-01 20:24] LABS: Pregnancy Test, Urine Negative (Negative)
[2019-01-01] MEDS ORDERED: CEFEPIME 2,000 MG in SYRINGE 7.5 ML IV STA (20:24)
[2019-01-01] MEDS ORDERED: ASPIRIN 325 MG ECTAB PO STA (21:48)
[2019-01-01] MEDS ORDERED: DEXTROSE 50% 50 ML SYRINGE IV PRN (21:48)
[2019-01-01] MEDS ORDERED: LORazepam 0.25 MG/0.5 ML VIAL IV PRN (21:48)
[2019-01-01] MEDS ORDERED: GLUCOSE 40% GEL 15 GM TUBE PO PRN (21:48)
[2019-01-01] MEDS ORDERED: CARBOHYDRATES FOR HYPOGLYCEMIA PO PRN (21:48)
[2019-01-01] MEDS ORDERED: NITROGLYCERIN SL 0.4 MG/TAB TAB SL PRN (21:48)
[2019-01-01] MEDS ORDERED: ACETAMINOPHEN 325 MG TAB PO PRN (21:48)
[2019-01-01] MEDS ORDERED: PROMETHAZINE HCL 12.5 MG in SODIUM CHLORIDE 0.9% 50 ML IV PRN (21:48)
[2019-01-01] MEDS ORDERED: GLUCAGON FOR INJ 1 MG VIAL SQ PRN (21:48)
[2019-01-01] MEDS ORDERED: GLUCOSE 10 TABS/TUBE PO PRN (21:48)
[2019-01-01] MEDS ORDERED: CEFEPIME CONSULT ACTIVE PRN (22:07)
--- NOTE | 2019-01-01 22:15 | Ultrasound Report ---
US venous doppler LE CLINICAL HISTORY: 33 years-old Female presenting with leg swelling. TECHNIQUE: Real-time grayscale and color and spectral Doppler ultrasound imaging of the veins of the bilateral lower extremities was performed. Compression and augmentation were also utilized. COMPARISON: 12/09/2018. FINDINGS: RIGHT: Common femoral vein: Patent. Greater saphenous vein (superficial): Patent. Deep femoral vein: Patent. Femoral vein: Patent. Popliteal vein: Patent. Calf veins: Patent. LEFT: Common femoral vein: Patent. Greater saphenous vein (superficial): Patent. Deep femoral vein: Patent. Femoral vein: Patent. Popliteal vein: Patent. Calf veins: Patent. Other: None. IMPRESSION: No evidence of deep venous thrombosis. Electronically signed by: Cale Quintanilla M.D. 01/01/2019 10:14 PM
--- NOTE | 2019-01-01 23:09 | Emergency Department Note ---
Entered by Erinn Agosto acting as a scribe for Milan Lyons MD ED Provider Note CHIEF COMPLAINT: Nausea and Vomiting HISTORY OF PRESENT ILLNESS: The patient is a 33 year old female who presents to the Emergency Room with complaints of nausea and vomiting beginning this morning that was followed by sharp chest pains. Per the patient, she is on blood thinners due to two previous blood clots. The patient states she is in severe pain and her nausea has been persistent. She also notes that her stools have been dark green. The patient is allergic to Penicillin, sulfur, and Keflex. She has a history of gastritis. Per the patient, she has been around a girl who has been coughing a lot but no other known contact with illness. She also states that for the past week, she has had sweats. The patient has been out of her Clozapine for two days. She states her mood has been worse. The patient lives in the [facility] detention. Pt denies LOC, headache, fevers, chills, visual changes, neck pain, breathing difficulties, back pain, melena, hematochezia, urinary symptoms, numbness, lymphadenopathy, rash, or other complaints. REVIEW OF SYSTEMS: See HPI for pertinent positives and negatives. A total of ten systems were reviewed and were otherwise negative. PMHx/PSHx: UTI, bilateral lower extremity edema, Diabetes type 2 controlled, gastritis. SOCIAL HISTORY: Patient lives at home. PHYSICAL EXAM: GENERAL: Awake, alert, uncomfortable appearing, in no distress HENT: Normocephalic, atraumatic. Oropharynx unremarkable. EYES: PERRL. Normal conjunctiva. Sclera non-icteric. NECK: Inspection normal. Non-tender. Supple. No nuchal rigidity. FROM. No masses. RESPIRATORY: Clear to auscultation. No wheezes. No rales. Normal respiratory effort. CARDIAC: Normal rate. Normal rhythm. No murmurs. No rubs. Extremities warm and well perfused. Pulses equal. No JVD. GI: Soft, non-distended. No tenderness to palpation. No rebound or guarding. No masses. Mild epigastric discomfort. RECTAL: Deferred. MUSCULOSKELETAL: Atraumatic. Chest examination reveals no tenderness. The back is symmetrical on inspection without obvious abnormality. There is no CVA tenderness to palpation. No joint edema. LOWER EXTREMITIES: Calves are equal size bilaterally and non-tender. No edema. No discoloration. NEURO: Normal sensorium. No sensory or motor deficits noted. SKIN: No rash or jaundice noted. EMERGENCY DEPARTMENT COURSE: 146: Past medical records reviewed. The patient was evaluated in room C3, and a complete history and physical examination were performed. 1648: I checked on the patient and she is still nauseated. 1850: I checked on the patient who is still feeling nauseous, she requested to stay to stay in the hospital. I will contact [facility]. 1914: I spoke with Dr. Alvarez, [facility] Hospitalist, about the patients case who agreed to accept the patient for further evaluation. 1999: The patient was admitted. MEDICAL DECISION MAKING: C3 Prior records/ancillary studies reviewed. The patient was recently in the hospital and treated for vomiting, noted green stool, and she was not taking her psychiatric medications. Triage Nursing notes reviewed and agree them. The patient's history was concerning for nausea, vomiting, diarrhea, abdominal pain and chest symptoms. Patient also notes some dysuria on repeat questioning after the initial history. Differential diagnosis: Etiologies such as gastroenteritis, food borne illness, infections, appendicitis, diverticulitis, inflammatory bowel disease, GI bleed, biliary p athology, ACS, esophageal rupture, urinary tract infection, as well as others were entertained. Physical examination findings: As above. Uncomfortable appearing but no peritoneal findings on examination. ER treatment provided: IV hydration with normal saline IV Phenergan IV Pepcid GI cocktail On reassessment patient felt the same On reassessment the patient felt no better and was still nauseated. IV Zofran IV Reglan IV Benadryl On reassessment the patient was feeling only marginally better. She requested something for pain. IV Toradol IV Rocephin Diagnostics interpretation by me: ECG: No acute ischemia The labs revealed a mild leukocytosis on CBC. Chemistry panel was unremarkable. Troponin negative. The patient has an equivocal UA and urine culture is pending. Imaging studies: Chest x-ray negative for acute process. The patient's CT scan and pelvis raise concerns about possible cystitis. In light of the patient's nausea and vomiting with her urinary infection and inability to take her psychiatric medications further management in the hospital was felt to be appropriate. The patient did not feel comfortable going home and requested further treatment in the hospital. Consultation: A consultation was placed with the hospitalist. The case was discussed and diagnostics were reviewed. The patient was evaluated in the ER for further treatment. IMPRESSION: Vomiting, substernal chest pain, nausea PLAN: Home- self care The scribe's documentation has been prepared under my direction and personally reviewed by me in its entirety. I confirm that the note above accurately reflects all work, treatment, procedures, and medical decision making performed by me. Impression & Plan Nausea and vomiting, Substernal chest pain Past Med/Surg History Medical History Diabetes mellitus type 2, controlled (Chronic) Constipation (Chronic) Anxiety (Chronic) GERD (gastroesophageal reflux disease) (Chronic) Hypothyroidism (Chronic) Cervicalgia (Chronic) Migraine headache (Chronic) Back pain (Acute) Chronic pain associated with significant psychosocial dysfunction (Chronic) Drug-seeking behavior (Acute) Major depressive disorder with psychotic features (Chronic) Opiate dependence (Chronic) UTI (urinary tract infection) (Acute) Post-concussion headache (Inactive) Pulmonary embolism (Inactive) Surgical History H/O discectomy (Resolved) H/O arthroscopy of left knee (Resolved) Family History Mother Dementia Hypothyroidism Brother Coronary heart disease Brother Diabetes Father Heart disease Social History Preferred Language: Australian Communication Ability: Effective 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 Beliefs That Will Affect Care: None marital status: Single Current Living Situation: Other Current Living Situation Comment: [facility] Other Information That Helps Us Care for You: No Feels Safe at Home: Yes Safety Concerns: Feels Safe At This Time Smoking Status: Never smoker Do You Dip or Chew Tobacco: No ; Second Hand Exposure: No ; Tobacco Cessation Education Requested by Patient: No Hx Alcohol Use: No Hx Substance Use: No Results & Data Vital Signs Vital Signs - 24 hr 01/01/19 14:57 01/01/19 15:02 01/01/19 15:07 Temperature 36.9 C Temperature Source Oral Sepsis Recent Fever Within 48 Hours No Sepsis New/Unexplained Change in Mental Status No Sepsis Action Taken by Nursing No Action Required Pulse Rate 97 H 101 H Pulse Rate from SpO2 Sensor 98 H Respiratory Rate 37 H 20 Respiratory Effort / Characteristics Non-Labored Spontaneous Respiratory Depth Normal Respiratory Pattern Regular Blood Pressure 104/75 104/75 Blood Pressure Mean 84 84 Blood Pressure Position Sitting Pulse Oximetry 97 98 97 Oxygen Delivery Method Room Air Room Air 01/01/19 15:08 01/01/19 15:30 01/01/19 15:46 Temperature Temperature Source Sepsis Recent Fever Within 48 Hours Sepsis New/Unexplained Change in Mental Status Sepsis Action Taken by Nursing Pulse Rate 97 H 90 95 H Pulse Rate from SpO2 Sensor 98 H 90 96 H Respiratory Rate 25 H 23 22 Respiratory Effort / Characteristics Respiratory Depth Respiratory Pattern Blood Pressure 107/79 Blood Pressure Mean 88 Blood Pressure Position Pulse Oximetry 96 98 100 Oxygen Delivery Method 01/01/19 16:00 01/01/19 16:30 01/01/19 16:31 Temperature Temperature Source Sepsis Recent Fever Within 48 Hours Sepsis New/Unexplained Change in Mental Status Sepsis Action Taken by Nursing Pulse Rate 93 H 91 H 86 Pulse Rate from SpO2 Sensor 91 H Respiratory Rate 27 H 19 34 H Respiratory Effort / Characteristics Respiratory Depth Respiratory Pattern Blood Pressure 111/96 134/59 L Blood Pressure Mean 101 84 Blood Pressure Position Pulse Oximetry 100 Oxygen Delivery Method 01/01/19 17:00 01/01/19 17:01 01/01/19 17:27 Temperature Temperature Source Sepsis Recent Fever Within 48 Hours Sepsis New/Unexplained Change in Mental Status Sepsis Action Taken by Nursing Pulse Rate 88 90 89 Pulse Rate from SpO2 Sensor 89 Respiratory Rate 23 18 23 Respiratory Effort / Characteristics Respiratory Depth Respiratory Pattern Blood Pressure 125/29 L 140/74 Blood Pressure Mean 61 96 Blood Pressure Position Pulse Oximetry 99 Oxygen Delivery Method 01/01/19 17:28 01/01/19 17:30 01/01/19 17:40 Temperature Temperature Source Sepsis Recent Fever Within 48 Hours Sepsis New/Unexplained Change in Mental Status Sepsis Action Taken by Nursing Pulse Rate 87 87 93 H Pulse Rate from SpO2 Sensor 87 87 Respiratory Rate 28 H 25 H Respiratory Effort / Characteristics Respiratory Depth Respiratory Pattern Blood Pressure 123/76 122/90 Blood Pressure Mean 91 100 Blood Pressure Position Pulse Oximetry 100 100 Oxygen Delivery Method 01/01/19 17:41 01/01/19 18:00 01/01/19 18:30 Temperature Temperature Source Sepsis Recent Fever Within 48 Hours Sepsis New/Unexplained Change in Mental Status Sepsis Action Taken by Nursing Pulse Rate 93 H 91 H 87 Pulse Rate from SpO2 Sensor 88 Respiratory Rate 26 H 17 26 H Respiratory Effort / Characteristics Respiratory Depth Respiratory Pattern Blood Pressure 110/72 117/89 Blood Pressure Mean 84 98 Blood Pressure Position Pulse Oximetry 99 Oxygen Delivery Method 01/01/19 19:00 01/01/19 19:01 01/01/19 19:06 Temperature Temperature Source Sepsis Recent Fever Within 48 Hours Sepsis New/Unexplained Change in Mental Status Sepsis Action Taken by Nursing Pulse Rate 87 89 76 Pulse Rate from SpO2 Sensor 86 76 Respiratory Rate 20 21 Respiratory Effort / Characteristics Respiratory Depth Respiratory Pattern Blood Pressure 118/70 Blood Pressure Mean 86 Blood Pressure Position Pulse Oximetry 99 99 Oxygen Delivery Method 01/01/19 19:30 01/01/19 19:31 01/01/19 20:00 Temperature Temperature Source Sepsis Recent Fever Within 48 Hours Sepsis New/Unexplained Change in Mental Status Sepsis Action Taken by Nursing Pulse Rate 90 92 H 92 H Pulse Rate from SpO2 Sensor 90 92 H 93 H Respiratory Rate 13 17 25 H Respiratory Effort / Characteristics Respiratory Depth Respiratory Pattern Blood Pressure 120/68 Blood Pressure Mean 85 Blood Pressure Position Pulse Oximetry 99 99 98 Oxygen Delivery Method Home Medications Current Medication List: was personally reviewed by me Additional Comments: According to the patient's medical records, she has received IV Rocephin 3 times in the past two months without reaction. Laboratory Data Attestation: I reviewed the patient's lab results. Result diagrams: 01/01/19 15:20 01/01/19 15:20 Lab Results 01/01/19 01/01/19 01/01/19 Range/Units 15:20 15:20 15:20 WBC 13.19 H (4.8-10.8) K/uL RBC 4.47 (4.2-5.4) M/uL Hgb 12.4 (12.0-16.0) g/dL Hct 39.0 (37-47) % MCV 87.2 (80-100) fL MCH 27.7 (25-34) pg MCHC 31.8 L (32-36) g/dL RDW Std Deviation 47.9 H (36.4-46.3) fL RDW Coeff of Manohar 15.0 H (11.5-14.5) % Plt Count 309 (130-400) K/uL MPV 9.4 (7.4-10.4) fL Immature Gran % (Auto) 0.2 % Neut % (Auto) 80.3 % Lymph % (Auto) 13.6 % Stephenson % (Auto) 5.7 % Eos % (Auto) 0.0 % Baso % (Auto) 0.2 % Immature Gran # (Auto) 0.02 (0.00-0.02) K/uL Neut # (Auto) 10.60 H (1.4-6.5) K/uL Lymph # (Auto) 1.80 (1.2-3.4) K/uL Stephenson # (Auto) 0.75 H (0.11-0.59) K/uL Eos # (Auto) 0.00 (0-0.5) K/uL Baso # (Auto) 0.02 (0-0.2) K/uL PT 22.9 H (9.0-12.0) Seconds INR 2.4 H (0.9-1.1) APTT 45.9 H* (21.0-31.0) Seconds PTT Ratio 1.7 Sodium 141 (136-145) mmol/L Potassium 3.5 (3.5-5.1) mmol/L Chloride 106 (98-107) mmol/L Carbon Dioxide 26 (21-32) mmol/L Anion Gap 8.0 (3-11) BUN 9 (7-18) mg/dl Creatinine 0.94 (0.6-1.2) mg/dl Est Cr Clr Drug Dosing 125.4 ml/min Est GFR ( Amer) 91.1 Est GFR (Non-Af Amer) 78.6 BUN/Creatinine Ratio 9.5 L (10-20) Glucose 92 (70-99) mg/dl Lactate (0.4-2.0) mmol/L Calcium 9.3 (8.5-10.1) mg/dl Magnesium (1.8-2.4) mg/dl Total Bilirubin 0.2 (0.2-1) mg/dl AST 31 (15-37) U/L ALT 48 (12-78) U/L Alkaline Phosphatase 91 (45-117) U/L Troponin I < 0.015 (0-0.045) ng/ml Total Protein 7.0 (6.4-8.2) gm/dl Albumin 3.2 L (3.4-5.0) gm/dl Globulin 3.8 (2.5-4.0) gm/dl Albumin/Globulin Ratio 0.8 L (0.9-2) Lipase 184 (73-393) U/L Urine Color Urine Appearance (Clear) Urine pH (4.5-7.5) Ur Specific [place] (1.000-1.030) Urine Protein (Negative) Urine Glucose (UA) (Negative) Urine Ketones (Negative) Urine Blood (Negative) Urine Nitrite (Negative) Urine Bilirubin (Negative) Urine Urobilinogen (Negative) Ur Leukocyte Esterase (Negative) Urine WBC (Auto) (0-5) /hpf Urine RBC (Auto) (0-4) /hpf U Hyaline Cast (Auto) (0-5) /lpf U Epithel Cells (Auto) (0-5) /lpf Urine Bacteria (Auto) (Negative) Urine Test (Negative) Romulus (0.6-1.2) mmol/L 01/01/19 01/01/19 01/01/19 Range/Units 15:20 17:30 17:30 WBC (4.8-10.8) K/uL RBC (4.2-5.4) M/uL Hgb (12.0-16.0) g/dL Hct (37-47) % MCV (80-100) fL MCH (25-34) pg MCHC (32-36) g/dL RDW Std Deviation (36.4-46.3) fL RDW Coeff of Manohar (11.5-14.5) % Plt Count (130-400) K/uL MPV (7.4-10.4) fL Immature Gran % (Auto) % Neut % (Auto) % Lymph % (Auto) % Stephenson % (Auto) % Eos % (Auto) % Baso % (Auto) % Immature Gran # (Auto) (0.00-0.02) K/uL Neut # (Auto) (1.4-6.5) K/uL Lymph # (Auto) (1.2-3.4) K/uL Stephenson # (Auto) (0.11-0.59) K/uL Eos # (Auto) (0-0.5) K/uL Baso # (Auto) (0-0.2) K/uL PT (9.0-12.0) Seconds INR (0.9-1.1) APTT (21.0-31.0) Seconds PTT Ratio Sodium (136-145) mmol/L Potassium (3.5-5.1) mmol/L Chloride (98-107) mmol/L Carbon Dioxide (21-32) mmol/L Anion Gap (3-11) BUN (7-18) mg/dl Creatinine (0.6-1.2) mg/dl Est Cr Clr Drug Dosing ml/min Est GFR ( Amer) Est GFR (Non-Af Amer) BUN/Creatinine Ratio (10-20) Glucose (70-99) mg/dl Lactate (0.4-2.0) mmol/L Calcium (8.5-10.1) mg/dl Magnesium 2.4 (1.8-2.4) mg/dl Total Bilirubin (0.2-1) mg/dl AST (15-37) U/L ALT (12-78) U/L Alkaline Phosphatase (45-117) U/L Troponin I (0-0.045) ng/ml Total Protein (6.4-8.2) gm/dl Albumin (3.4-5.0) gm/dl Globulin (2.5-4.0) gm/dl Albumin/Globulin Ratio (0.9-2) Lipase (73-393) U/L Urine Color Yellow Urine Appearance Cloudy A (Clear) Urine pH 8.0 H (4.5-7.5) Ur Specific [place] 1.020 (1.000-1.030) Urine Protein Negative (Negative) Urine Glucose (UA) Negative (Negative) Urine Ketones Negative (Negative) Urine Blood Negative (Negative) Urine Nitrite Negative (Negative) Urine Bilirubin Negative (Negative) Urine Urobilinogen Negative (Negative) Ur Leukocyte Esterase 1+ H (Negative) Urine WBC (Auto) 1-5 (0-5) /hpf Urine RBC (Auto) 0-4 (0-4) /hpf U Hyaline Cast (Auto) 1-5 (0-5) /lpf U Epithel Cells (Auto) >30 H (0-5) /lpf Urine Bacteria (Auto) 1+ H (Negative) Urine Test Negative (Negative) Romulus (0.6-1.2) mmol/L 01/01/19 01/01/19 Range/Units 19:54 19:54 WBC (4.8-10.8) K/uL RBC (4.2-5.4) M/uL Hgb (12.0-16.0) g/dL Hct (37-47) % MCV (80-100) fL MCH (25-34) pg MCHC (32-36) g/dL RDW Std Deviation (36.4-46.3) fL RDW Coeff of Manohar (11.5-14.5) % Plt Count (130-400) K/uL MPV (7.4-10.4) fL Immature Gran % (Auto) % Neut % (Auto) % Lymph % (Auto) % Stephenson % (Auto) % Eos % (Auto) % Baso % (Auto) % Immature Gran # (Auto) (0.00-0.02) K/uL Neut # (Auto) (1.4-6.5) K/uL Lymph # (Auto) (1.2-3.4) K/uL Stephenson # (Auto) (0.11-0.59) K/uL Eos # (Auto) (0-0.5) K/uL Baso # (Auto) (0-0.2) K/uL PT (9.0-12.0) Seconds INR (0.9-1.1) APTT (21.0-31.0) Seconds PTT Ratio Sodium (136-145) mmol/L Potassium (3.5-5.1) mmol/L Chloride (98-107) mmol/L Carbon Dioxide (21-32) mmol/L Anion Gap (3-11) BUN (7-18) mg/dl Creatinine (0.6-1.2) mg/dl Est Cr Clr Drug Dosing ml/min Est GFR ( Amer) Est GFR (Non-Af Amer) BUN/Creatinine Ratio (10-20) Glucose (70-99) mg/dl Lactate 1.8 (0.4-2.0) mmol/L Calcium (8.5-10.1) mg/dl Magnesium (1.8-2.4) mg/dl Total Bilirubin (0.2-1) mg/dl AST (15-37) U/L ALT (12-78) U/L Alkaline Phosphatase (45-117) U/L Troponin I (0-0.045) ng/ml Total Protein (6.4-8.2) gm/dl Albumin (3.4-5.0) gm/dl Globulin (2.5-4.0) gm/dl Albumin/Globulin Ratio (0.9-2) Lipase (73-393) U/L Urine Color Urine Appearance (Clear) Urine pH (4.5-7.5) Ur Specific [place] (1.000-1.030) Urine Protein (Negative) Urine Glucose (UA) (Negative) Urine Ketones (Negative) Urine Blood (Negative) Urine Nitrite (Negative) Urine Bilirubin (Negative) Urine Urobilinogen (Negative) Ur Leukocyte Esterase (Negative) Urine WBC (Auto) (0-5) /hpf Urine RBC (Auto) (0-4) /hpf U Hyaline Cast (Auto) (0-5) /lpf U Epithel Cells (Auto) (0-5) /lpf Urine Bacteria (Auto) (Negative) Urine Test (Negative) Romulus 0.4 L (0.6-1.2) mmol/L Administered Medications Discontinued Medications Al Hydrox/Mg Hydrox/Simethicone () Confirm Administered Dose 1 dose PO .STK-MED ONE Stop: 01/01/19 15:42 Last Admin: 01/01/19 15:43 Dose: Not Given Documented by: [id number] Al Hydrox/Mg Hydrox/Simethicone 18 ml/ Lidocaine HCl 6 ml/ BARCODE IDENTIFIER 1 ea 0 ml PO ONE ONE Stop: 01/01/19 15:03 Last Admin: 01/01/19 15:43 Dose: 24 ml Documented by: [id number] Diphenhydramine HCl (Benadryl) 25 mg IV NOW STA Stop: 01/01/19 16:56 Last Admin: 01/01/19 17:30 Dose: 25 mg Documented by: [id number] Famotidine (Pepcid 20mg Iv Push) 20 mg IV ONE STA Stop: 01/01/19 15:03 Last Admin: 01/01/19 15:36 Dose: 20 mg Documented by: [id number] Promethazine HCl (Phenergan) 25 mg in 51 mls @ 204 mls/hr IV NOW STA Stop: 01/01/19 15:16 Last Infusion: 01/01/19 16:02 Dose: 0 mls/hr Documented by: [id number] Admin: 01/01/19 15:36 Dose: 204 mls/hr Documented by: [id number] Sodium Chloride (Nss 1000ml) 1,000 mls @ 999 mls/hr IV .Q1H1M LINNEA Stop: 01/01/19 16:15 Last Infusion: 01/01/19 17:43 Dose: 0 mls/hr Documented by: [id number] Admin: 01/01/19 15:36 Dose: 999 mls/hr Documented by: [id number] Ceftriaxone Sodium (Rocephin) 1,000 mg in 50 mls @ 100 mls/hr IV NOW STA Stop: 01/01/19 19:45 Last Infusion: 01/01/19 20:16 Dose: 0 mls/hr Documented by: [id number] Admin: 01/01/19 19:22 Dose: 100 mls/hr Documented by: [id number] Cefepime HCl 2,000 mg/ Syringe 20 mls @ 5 mls/min IV NOW STA Stop: 01/01/19 20:27 Last Admin: 01/01/19 20:41 Dose: 5 mls/min Documented by: [id number] Ioversol (Optiray 320 100ml) 94 ml IV ONCE PRN PRN Reason: Interaction Checking Stop: 01/05/19 17:18 Last Admin: 01/01/19 17:19 Dose: 94 ml Documented by: [id number] Ketorolac Tromethamine (Toradol) 10 mg IV NOW ONE Stop: 01/01/19 18:53 Last Admin: 01/01/19 19:03 Dose: 10 mg Documented by: [id number] Metoclopramide HCl (Reglan) 10 mg IV NOW STA Stop: 01/01/19 16:56 Last Admin: 01/01/19 17:30 Dose: 10 mg Documented by: [id number] Nitroglycerin (Nitrostat) 0.4 mg SL NOW STA Stop: 01/01/19 20:08 Last Admin: 01/01/19 20:41 Dose: 0.4 mg Documented by: [id number] Ondansetron HCl (Zofran) 4 mg IV NOW STA Stop: 01/01/19 16:47 Last Admin: 01/01/19 17:30 Dose: 4 mg Documented by: [id number] Imaging Data Radiologist's Impression: Radiology results as stated below per my review and the radiologist's interpretation: SINGLE VIEW CHEST CLINICAL HISTORY: Atypical chest pain. FINDINGS: 2 AP, portable, upright chest radiographs are compared to study dated 12/19/2018 and correlated with chest CT dated 11/18/2018. The examination is degraded by portable technique, large body habitus, and patient rotation. The cardiomediastinal silhouette is unremarkable. There are low lung volumes. The lungs and pleural spaces are clear. No pneumothorax is seen. The bony thorax is grossly intact. Fusion hardware is noted in the lower cervical spine. IMPRESSION: Low lung volumes with no active disease in the chest. Electronically signed by: Minor Poole M.D. 01/01/2019 3:35 PM Dictated: 01/01/19 1533 Transcribed: 01/01/[address] abd pelvis IV con only CLINICAL HISTORY: 33 years-old Female presenting with vomiting, upper abdominal pain. TECHNIQUE: Multidetector CT of the abdomen and pelvis was performed after the administration of intravenous contrast. IV contrast: 94 mL of Optiray 320. One or more dose lowering techniques were used consistent with the principles of ALARA (as low as reasonably achievable), including automatic exposure control, mA or kV adjustment to individual patient size, and/or use of iterative reconstruction. COMPARISON: 12/19/2018. CT DOSE (mGy.cm): The estimated cumulative dose is 1916.19 mGy.cm. FINDINGS: Brand Marketing Specialist topogram: Cholecystectomy clips. Lumbar fusion hardware. Lung bases: Normal heart size. No pericardial or pleural effusion. No focal infiltrate or nodule at the lung bases. Liver: Normal morphology. Density suggestive of hepatic steatosis. No focal lesion. Patent hepatic vasculature. Biliary: No intrahepatic or extrahepatic biliary ductal dilatation. Gallbladder surgically absent. Pancreas: Normal. Spleen: Normal. Splenule noted. Adrenal glands: Normal. Kidneys and ureters: Normal. No hydronephrosis. Bladder: Circumferential bladder wall thickening. Pelvic organs: Uterus and ovaries normal. Bowel: Normal appendix. No bowel obstruction. Peritoneal cavity: No free fluid or intraperitoneal gas. Lymph nodes: No enlarged lymph nodes in the abdomen or pelvis. Vasculature: Aorta and IVC patent and normal in caliber. Abdominal wall: Normal. Musculoskeletal: Degenerative changes of the spine. Lumbar fusion hardware. IMPRESSION: 1. Hepatic steatosis. Correlate with liver function tests to exclude steatohepatitis as a cause for abdominal pain. 2. Circumferential bladder wall thickening may be due to under distention or c ystitis. Correlate with urinalysis. 3. Post cholecystectomy. Electronically signed by: Cale Quintanilla M.D. 01/01/2019 5:37 PM ECG Data Attestation: I personally reviewed and interpreted this ECG as follows: Indication: chest pain Rate (beats per minute): 98 Rhythm: normal sinus Findings: no PAC, no PVC, no ST depression and no ST elevation Comparison ECG Date: from (12/19/18) Change: no significant change Blood Pressure Blood Pressure Findings: Normal blood pressure Discharge Plan Visit Data *Final* Discharge Date/Time: 01/01/19 21:05 Chief Complaint: Chest Pain Other Complaint: Nausea ED Provider: Milan Lyons Discharge Problem: Nausea and vomiting, Substernal chest pain Patient Disposition: Admitted As Inpatient Discharge Instructions Interventions: ED Discharge Assessment Last Done: 01/01/19 21:05 Discharge Problem: Nausea and vomiting Qualifiers: Vomiting type: unspecified Vomiting Intractability: unspecified Qualified Code(s): R11.2 - Nausea with vomiting, unspecified The scribe's documentation has been prepared under my direction and personally reviewed by me in its entirety. I confirm that the note above accurately reflects all work, treatment, procedures, and medical decision making performed by me.
[2019-01-01] MEDS ORDERED: cloZAPine 100 MG TAB PO SCH (23:15)
[2019-01-01] MEDS: INSULIN ASPART 100 UNITS/ML 3 ML PEN SC SCH (23:18)
[2019-01-02] MEDS: LACTATED RINGER'S 1,000 ML IV SCH ×3 (00:03→02:05)
[2019-01-02] MEDS: LACTATED RINGER'S 1,000 ML IV ONE (00:05)
[2019-01-02] MEDS: BACLOFEN 10 MG TAB PO SCH ×3 (00:07→22:02)
[2019-01-02] MEDS: GABAPENTIN 800 MG TAB PO SCH ×5 (00:07→22:05)
[2019-01-02] MEDS: MIRABEGRON ER 25 MG TAB PO SCH ×2 (00:08→22:05)
[2019-01-02] MEDS: TOPIRAMATE 100 MG TAB PO SCH ×3 (00:09→22:04)
[2019-01-02] MEDS: LITHIUM CARBONATE 300 MG TAB PO SCH ×3 (03:22→22:04)
[2019-01-02 04:06] LABS: Basophils # (auto) 0.02 K/uL (0-0.2); Basophils % (auto) 0.2 %; Hematocrit (blood only) 36.8 % (37-47); Hemoglobin 11.5 g/dL (12.0-16.0); Immature Granulocytes # (auto) 0.03 K/uL (0.00-0.02); Immature Granulocytes % (auto) 0.3 %; Lymphocytes # (auto) 2.19 K/uL (1.2-3.4); Lymphocytes % (auto) 21.8 %; Mean Corpuscular Hemoglobin 27.4 pg (25-34); Mean Corpuscular Hgb Conc 31.3 g/dL (32-36); Mean Corpuscular Volume 87.6 fL (80-100); Mean Platelet Volume 9.4 fL (7.4-10.4); Monocytes # (auto) 0.56 K/uL (0.11-0.59); Monocytes % (auto) 5.6 %; Neutrophils # (auto) 7.23 K/uL (1.4-6.5); Neutrophils % (auto) 72.1 %; Platelet Count 269 K/uL (130-400); RDW Coefficient of Variation 15.1 % (11.5-14.5); RDW Standard Deviation 48.4 fL (36.4-46.3); White Blood Count 10.03 K/uL (4.8-10.8)
[2019-01-02 04:28] LABS: Chol HDL Ratio 3; Cholesterol 132 mg/dl (0-200); HDL Cholesterol 43 mg/dl; LDL Cholesterol Calculated 55 mg/dl; Triglycerides 168 mg/dl (0-150); Troponin I < 0.015 ng/ml (0-0.045); VLDL Cholesterol 34 mg/dl
[2019-01-02 04:30] LABS: INR 2.1 (0.9-1.1); Partial Thromboplastin Ratio 1.7; Partial Thromboplastin Time 44.8 Seconds (21.0-31.0); Prothrombin Time 20.3 Seconds (9.0-12.0)
[2019-01-02] MEDS: LEVOTHYROXINE SODIUM 137 MCG TABLET PO SCH (05:49)
[2019-01-02] MEDS: INSULIN ASPART 100 UNITS/ML 3 ML PEN SC SCH ×4 (08:15→20:35)
[2019-01-02] MEDS: DULOXETINE HCL 30 MG CAP PO SCH (08:17)
[2019-01-02] MEDS: FERROUS SULFATE 325 MG TAB PO SCH (08:19)
[2019-01-02] MEDS: LACTOBACILLUS ACIDOPHILUS (FLORANEX) TAB PO SCH (08:19)
[2019-01-02] MEDS: POTASSIUM CHLORIDE 10 MEQ TABCR PO SCH (08:19)
[2019-01-02] MEDS: ATORVASTATIN 10 MG TAB PO SCH (08:23)
[2019-01-02] MEDS: LISINOPRIL 10 MG TAB PO SCH (08:25)
[2019-01-02] MEDS ORDERED: DULOXETINE HCL 60 MG CAP PO SCH (09:00)
[2019-01-02] MEDS ORDERED: ASPIRIN 81 MG ECTAB PO SCH (09:00)
[2019-01-02] MEDS ORDERED: LITHIUM CARBONATE 300 MG TAB PO SCH ×2 (09:00→21:00)
[2019-01-02] MEDS: CEFEPIME 2,000 MG in SYRINGE 7.5 ML IV SCH ×2 (09:09→19:51)
[2019-01-02] MEDS ORDERED: METOPROLOL TARTRATE 1 MG/ML VIAL IV ONE (09:37)
[2019-01-02] MEDS ORDERED: ATROPINE SULFATE 0.1 MG/ML 10ML SYR IV ONE (09:37)
[2019-01-02] MEDS ORDERED: DOBUTamine HCL 12.5 MG/ML 20 ML VIAL IV ONE (09:38)
[2019-01-02] MEDS ORDERED: Nursing to Pharmacy Communication ONE (18:26)
--- NOTE | 2019-01-02 18:31 | Hospitalist Progress Note ---
Date of Service January 02, 2019 Assessment & Plan (1) Sepsis: Present on admission on elevated WBC, fever and abnormal UA Possible related to UTI Received IV ceftriaxone in the ER, then starting on cefepime IV Urine cx and blood cx pending Continue IV cefepine for now Vomiting/Nausea CT pelvis/abdominal showed hepatic steatosis. Correlate with liver function tests to exclude steatohepatitis as a cause for abdominal pain. Lipase on admission normal Advanced diet as tolerated Monitor electrolytes symptoms improved Atypical chest pain Mostly due to costochondritis from coughing Dobutamine stress ECHO done today negative for ischemia Continue pain control with tylenol prn Abnormal urinalysis: UA positive for leukocytes and bacteria Blood and urine cx negative WBC improved Continue IV cefepime Major depressive disorder with psychotic features Run out of Clozapine since PCP only give 1 week supply Continue lithium and cymbalta last admission she was seen by psych and was recommended to titrate clozapine once it stops Will start with clozapine 50mg tonight Pt requested to see psych again Will consult psych to guide with the titration and to reassure that she will have her clozapine on discharge Pulmonary embolism: Recent bilateral PE diagnosis in October 2018 Continue coumadin with INR 2.1 Continue monitor PT/INR Follow up with the coag clinic Diabetes mellitus type 2, controlled A1c of 5.5 in October 2018 Continue insulin sliding scale Continue monitor BS Bilateral lower extremity edema Doppler of B/L LE showed no evidence of DVT Will resume lasix Opiate dependence: History of opiate dependence Use narcotics only when absolutely necessary Hypothyroidism Continue levothyroxine Morbid Obesity BMI 49.1 Counseling on weight lost DVT Ppx: On coumadin with INR 2.2 CODE STATUS FULL CODE Subjective Pt was seen and examined Lying in bed with no distress Pt said that she did not have the clozapine for the last 3-4 days She said that her psychiatrist only gave her 1 week supply She said that she was starting to have nausea and vomiting after she stopped taking her Clozapine She said that she had a burning sensation in her lower extremities R>L She said that she had outpatient EMG done that revealed neuropathy She said that she was having chest pain when coughing She asking to have her diet because she wants to eat a turkey sandwich Currently denies any chest pain, palpitation, dizziness and SOB Physical Exam Physical Exam: General- No acute distress, obesity Head- atraumatic Eyes- PERRL, EOMI, ENT- oropharynx clear Neck- supple, no JVD Lungs- clear to auscultation Heart- regular rhythm; no murmur Abdomen- normal bowel sounds, soft, nontender Extremities- no calf tenderness, B/L edema Neuro- alert, oriented x 3; PERRL, EOMI; no facial palsy; no dysarthria Skin- warm & dry Results & Data Vital Signs (Past 12 Hours) Vital Signs Temp Pulse Resp BP Pulse Ox 01/02/19 15:34 36.4 C L 90 18 110/75 98 01/02/19 11:20 36.3 C L 86 16 106/69 94 01/02/19 07:03 37.0 C 87 17 101/69 95
[2019-01-02 20:40] LABS: INR 1.6 (0.9-1.1); Prothrombin Time 16.1 Seconds (9.0-12.0)
[2019-01-02] MEDS ORDERED: cloZAPine 25 MG TAB PO SCH (21:00)
[2019-01-02] MEDS: FUROSEMIDE 80 MG TAB PO SCH (22:01)
[2019-01-03 06:01] LABS: Hematocrit (blood only) 39.9 % (37-47); Hemoglobin 12.2 g/dL (12.0-16.0); Mean Corpuscular Hemoglobin 27.1 pg (25-34); Mean Corpuscular Hgb Conc 30.6 g/dL (32-36); Mean Corpuscular Volume 88.5 fL (80-100); Mean Platelet Volume 9.8 fL (7.4-10.4); Platelet Count 332 K/uL (130-400); RDW Coefficient of Variation 15.3 % (11.5-14.5); RDW Standard Deviation 49.3 fL (36.4-46.3); Red Blood Count 4.51 M/uL (4.2-5.4); White Blood Count 10.63 K/uL (4.8-10.8)
[2019-01-03 06:26] LABS: Creatinine Clr Calc Pharmacy 120.3 ml/min; Est GFR (African American) 86.6; Est GFR (Non-African American) 74.7
[2019-01-03] MEDS: LEVOTHYROXINE SODIUM 137 MCG TABLET PO SCH (06:26)
[2019-01-03] MEDS: INSULIN ASPART 100 UNITS/ML 3 ML PEN SC SCH ×4 (08:33→23:48)
[2019-01-03] MEDS: DULOXETINE HCL 30 MG CAP PO SCH (08:33)
[2019-01-03] MEDS: FERROUS SULFATE 325 MG TAB PO SCH (08:34)
[2019-01-03] MEDS: LACTOBACILLUS ACIDOPHILUS (FLORANEX) TAB PO SCH (08:34)
[2019-01-03] MEDS: BACLOFEN 10 MG TAB PO SCH ×2 (08:35→20:20)
[2019-01-03] MEDS: POTASSIUM CHLORIDE 10 MEQ TABCR PO SCH (08:35)
[2019-01-03] MEDS: FUROSEMIDE 80 MG TAB PO SCH ×2 (08:35→20:20)
[2019-01-03] MEDS: LITHIUM CARBONATE 300 MG TAB PO SCH ×2 (08:36→20:21)
[2019-01-03] MEDS: ATORVASTATIN 10 MG TAB PO SCH (08:36)
[2019-01-03] MEDS: GABAPENTIN 800 MG TAB PO SCH ×4 (08:37→20:21)
[2019-01-03] MEDS: TOPIRAMATE 100 MG TAB PO SCH ×2 (08:38→20:22)
[2019-01-03] MEDS: LISINOPRIL 10 MG TAB PO SCH (08:38)
[2019-01-03] MEDS: CEFEPIME 2,000 MG in SYRINGE 7.5 ML IV SCH ×2 (08:42→20:10)
--- NOTE | 2019-01-03 09:28 | Psychiatric Consultation ---
Date of Consultation January 03, 2019 Impression / Recommendations Impression Patient was just seen less than 2 weeks ago at the psychiatric consult service after running out of clozapine and was re-titrated and discharged with a prescription to continue the titration. Unfortunately, she was unable to follow up for her weekly CBC with differential, so was unable to get her next week's prescription, and had been off of the medication for 3-4 days prior to presentation. This, not surprisingly, resulted in exacerbation of her mood and psychotic symptoms. She also has multiple stressors, primarily her medical problems and having to find a new housing facility. We will retry traits her clozapine, and on Saturday get in touch with her outpatient clinical case manager and psychiatric nursing aide at [facility] to coordinate care. (1) Major depressive disorder with psychotic features: 01/03 -chronic auditory hallucinations and depressive symptoms, differential includes schizoaffective disorder depressive type. -Re-titrate clozapine as patient was off of it for several days prior to hospitalization: Increased by 25 mg daily, and resume weekly CBC with differential for monitoring for neutropenia. Neutrophils 7.23 on admission. -Continue home doses of lithium and duloxetine. Lajas on presentation was 0.4, and no signs of toxicity. -On Saturday we will coordinate care with Lora Arnold at [facility] who prescribes her psychotropic medications, and her blended clinical case manager Elizabeth Stewart. Present on Admission?: Yes Risk Factors Assessment Male: No : Yes Do You Have Access To A Gun?: No Health Problems: Yes Mental Health Diagnoses: Yes Substance Use Disorders: No Previous Attempt: Yes Previous Attempt; Highly Lethal: No Family History of Suicide: Yes Previous Psychiatric Hospitalization: Yes Hopelessness: Yes Smoker: No Protective Factors Assessment : No Responsible for Young Children: No Employed: No Stable Relationships: Yes Supportive Family: Yes Good Rapport with Provider: Yes Absence of Any Risk Factors Above: Yes (Supervised housing at the [facility], lack of suicidal thoughts/plan/self-injurious behavior) Psych History Identifying Data 33-year-old female with a history of recurrent depression with psychosis who was admitted 01/01/2019 for sepsis due to complicated UTI and acute gastroenteritis. Psychiatry was consulted for depression. Chief Complaint "It's going". History of Present Illness She does well-known to us from multiple previous hospitalizations; most recently seen by the consult service 12/22/2018, at which point clozapine was being re- titrated. 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 She presented with with nausea, vomiting, pain and shortness of breath. She was admitted medically for treatment of sepsis secondary to complicated UTI, acute gastroenteritis, workup of chest pain, and started on IV antibiotics. She was continued on her home doses of duloxetine 90 mg daily and lithium 400 mg every morning and 650 mg at bedtime. She had run out of clozapine several days prior to presentation, so was was started on 50 mg at bedtime mother remaining 200 mg was held. On my assessment, she reports that she has been struggling for the past several weeks due to multiple medical problems and hospitalizations, as well as being informed a month ago that due to the severity of her medical conditions, she would not be able to stay at the [facility] and would have to find alternative housing. She has been working on this with her blended clinical case manager, Elizabeth, and they are exploring personal care homes and nursing homes. She continued her clozapine after discharge from the hospital earlier this month, but then ran out of it 3-4 days prior to hospitalization. She called her outpatient clinician at [facility] but was told she needed to get her blood work done before it could be prescribed. Transportation has been a barrier to her following through with the necessary blood work, as she has to get a taxi, and said she did not have money to do so. Since running out of clozapine, her auditory hallucinations of voices have worsened, and she has been feeling more paranoid, fearing that someone is coming to get her at the [facility] and might hurt her. She denies suicidal and homicidal thoughts, and feels safe here. She reports worsening mood with hopelessness. She reports compliance with her other psychotropic medications. Past Psychiatric History Previous Psych History: Well documented in chart. Current Psychiatric Diagnosis: Recurrent depression, severe with psychosis. R/o primary thought diso Outpatient Services: [facility] design manager Elizabeth Stewart Previous Psych Admissions: [facility] (11/2015, 02/2016, 08/2018), [facility] 05/2016 - 04/2018 Do You Have Access To A Gun?: No History of Previous Suicide Attempt: Yes (Overdose on gabapentin 2-1/2 years ago) Past Medication Trials: 1. Risperdal - EPS 2. Seroquel 3. Haldol 4. Neurontin 5. Cymbalta 6. Topamax 7. Haldol Decanoate 8. Wellbutrin 9. Klonopin 10.Invega 11.Amantadine 12.Clozaril 13.Lajas 14.Risperdal Consta Allergies Allergy/AdvReac Type Severity Reaction Status Date / Time erythromycin base Allergy Mild Unknown Verified 12/30/18 07:50 cephalexin Allergy Unknown . Verified 12/30/18 07:50 Penicillins Allergy Unknown . Verified 12/30/18 07:50 Sulfa (Sulfonamide Allergy Unknown . Verified 12/30/18 07:50 Antibiotics) Home Medications Home Medications Medication Instructions Recorded Confirmed Type Lactobacillus acidophilus 1 cap PO QAM 05/23/18 01/01/19 History baclofen 5 mg PO BID 05/23/18 01/01/19 History duloxetine 60 mg PO QAM 05/23/18 01/01/19 History ferrous sulfate 325 mg PO QAM 05/23/18 01/01/19 History lisinopril 10 mg PO QAM 05/23/18 01/01/19 History lithium carbonate 150 mg PO QAM 05/23/18 01/01/19 History metformin 500 mg PO BIDM 05/23/18 01/01/19 History polyethylene glycol 3350 17 g PO BID PRN 05/23/18 01/01/19 History atorvastatin [Lipitor] 10 mg PO QAM 08/28/18 01/01/19 History docusate sodium [Colace] 100 mg PO BID 08/28/18 01/01/19 History lithium carbonate 600 mg PO HS 08/28/18 01/01/19 History ondansetron 8 mg PO DIRECTED PRN 08/28/18 01/01/19 History potassium chloride 10 meq PO QAM 08/28/18 01/01/19 History duloxetine 30 mg PO QAM 12/09/18 01/01/19 History furosemide 160 mg PO QAM 12/19/18 01/01/19 History levothyroxine 137 mcg PO QAM 12/19/18 01/01/19 History warfarin 7.5 mg PO 3XWK 12/19/18 01/01/19 History clozapine 200 mg tablet 200 mg PO HS 12/30/18 01/01/19 History gabapentin 800 mg tablet 800 mg PO QID 30 Days #120 tab 12/30/18 01/01/19 Rx risperidone microspheres 37.5 mg/2 37.5 mg IM Q14D 12/30/18 01/01/19 History mL intramuscular syringe topiramate 100 mg tablet 100 mg PO BID 30 Days #60 tab 12/30/18 01/01/19 Rx clozapine 100 mg PO DIRECTED 01/01/19 01/01/19 History lithium carbonate 300 mg PO QAM 01/01/19 01/01/19 History mirabegron [Myrbetriq] 25 mg PO HS 01/01/19 01/01/19 History warfarin 5 mg PO 4XWK 01/01/19 01/01/19 History Family History Father -bipolar disorder, completed suicide Personal History Living Arrangements: [facility] Employment Status: Disabled Marital Status: Single Beliefs That Will Affect Care: None Patient History Medical History Diabetes mellitus type 2, controlled (Chronic) Constipation (Chronic) Anxiety (Chronic) GERD (gastroesophageal reflux disease) (Chronic) Hypothyroidism (Chronic) Cervicalgia (Chronic) Migraine headache (Chronic) Back pain (Acute) Chronic pain associated with significant psychosocial dysfunction (Chronic) Drug-seeking behavior (Acute) Major depressive disorder with psychotic features (Chronic) Opiate dependence (Chronic) UTI (urinary tract infection) (Acute) Post-concussion headache (Inactive) Pulmonary embolism (Inactive) Surgical History H/O discectomy (Resolved) H/O arthroscopy of left knee (Resolved) Family History Mother Dementia Hypothyroidism Brother Coronary heart disease Brother Diabetes Father Heart disease Social History Preferred Language: Icelandic Communication Ability: Impaired Mixing Pan Tender Required: No Beliefs That Will Affect Care: None marital status: Single Current Living Situation: Other Current Living Situation Comment: senior care Other Information That Helps Us Care for You: No Feels Safe at Home: Yes Safety Concerns: Feels Safe At This Time Smoking Status: Never smoker Do You Dip or Chew Tobacco: No ; Second Hand Exposure: No ; Tobacco Cessation Education Requested by Patient: No Hx Alcohol Use: No Hx Substance Use: No Physical Exam Psychiatric: Orientation: alert and cooperative Obese white female appearing stated age, dressed in a hospital gown, seated in her bed in no acute distress. Calm, cooperative, and pleasant. Eye Contact: good eye contact Motor Behavior: no abnormal motor movements Speech: normal rate/rhythm/volume of speech Affect is mildly depressed and anxious, but reactive, appropriate, and congruent. Mood: + depressed mood Thought Process: goal directed thought process Thought Content: reality based without delusions Recent increase in paranoia with fear that someone will "come and get me" at her [facility]. Suicidal Thoughts: denies suicidal thoughts Homicidal Thoughts: denies homicidal thoughts Hallucinations: + auditory hallucinations Of voices which are chronic, with recent worsening. Cognition: recent memory grossly intact, attention grossly intact and language grossly intact Insight: + fair insight Judgement: + limited judgement Vital Signs (Past 24 Hours): Last Vital Signs Temp 36.6 C 01/03/19 07:05 Pulse 99 H 01/03/19 07:05 Resp 18 01/03/19 07:05 BP 110/71 01/03/19 07:05 Pulse Ox 96 01/03/19 07:05 Review of Systems All systems reviewed & are unremarkable except as noted in HPI & below Results & Data Medications Administered Acetaminophen (Tylenol) 650 mg PO Q4H PRN PRN Reason: Pain or Fever Stop: 01/31/19 21:47 Last Admin: 01/02/19 09:18 Dose: 650 mg Documented by: [id number] Atorvastatin Calcium (Lipitor) 10 mg PO QAM [facility] Stop: 02/01/19 08:59 Last Admin: 01/03/19 08:36 Dose: 10 mg Documented by: [id number] Admin: 01/02/19 08:23 Dose: 10 mg Documented by: [id number] Baclofen (Lioresal) 5 mg PO BID [facility] Stop: 01/31/19 21:47 Last Admin: 01/03/19 08:35 Dose: 5 mg Documented by: [id number] Admin: 01/02/19 22:02 Dose: 5 mg Documented by: [id number] Admin: 01/02/19 08:20 Dose: 5 mg Documented by: [id number] Admin: 01/02/19 00:07 Dose: 5 mg Documented by: [id number] Clozapine (Clozapine) 200 mg PO HS [facility] Stop: 01/31/19 23:14 Last Admin: 01/02/19 00:03 Dose: 200 mg Documented by: [id number] Clozapine (Clozaril) 50 mg PO HS [facility] Stop: 02/01/19 20:59 Last Admin: 01/02/19 22:01 Dose: 50 mg Documented by: [id number] Duloxetine HCl (Cymbalta) 90 mg PO QAM [facility] Stop: 02/01/19 08:59 Last Admin: 01/03/19 08:33 Dose: 90 mg Documented by: [id number] Admin: 01/02/19 08:17 Dose: 90 mg Documented by: [id number] Ferrous Sulfate (Feosol) 325 mg PO QAM [facility] Stop: 02/01/19 08:59 Last Admin: 01/03/19 08:34 Dose: 325 mg Documented by: [id number] Admin: 01/02/19 08:19 Dose: 325 mg Documented by: [id number] Furosemide (Lasix) 80 mg PO BID [facility] Stop: 02/01/19 20:59 Last Admin: 01/03/19 08:35 Dose: 80 mg Documented by: [id number] Admin: 01/02/19 22:01 Dose: 80 mg Documented by: [id number] Gabapentin (Neurontin) 800 mg PO QID [facility] Stop: 01/31/19 21:47 Last Admin: 01/03/19 08:37 Dose: 800 mg Documented by: [id number] Admin: 01/02/19 22:05 Dose: 800 mg Documented by: [id number] Admin: 01/02/19 17:08 Dose: 800 mg Documented by: [id number] Admin: 01/02/19 13:02 Dose: 800 mg Documented by: [id number] Admin: 01/02/19 08:24 Dose: 800 mg Documented by: [id number] Admin: 01/02/19 00:07 Dose: 800 mg Documented by: [id number] Cefepime HCl 2,000 mg/ Syringe 20 mls @ 5 mls/min IV Q12H [facility]; Protocol Stop: 01/11/19 07:59 Last Admin: 01/03/19 08:42 Dose: 5 mls/min Documented by: [id number] Admin: 01/02/19 19:51 Dose: 5 mls/min Documented by: [id number] Admin: 01/02/19 09:09 Dose: 5 mls/min Documented by: [id number] Insulin Aspart (Novolog Flexpen) 0 units SC ACHS [facility] Stop: 01/31/19 21:47 Last Admin: 01/03/19 08:33 Dose: 7 units Documented by: [id number] Cosigned by: [id number] Admin: 01/02/19 20:35 Dose: 2 units Documented by: [id number] Cosigned by: [id number] Admin: 01/02/19 17:07 Dose: Not Given Documented by: [id number] Cosigned by: [id number] Admin: 01/02/19 13:01 Dose: Not Given Documented by: [id number] Cosigned by: [id number] Admin: 01/02/19 08:15 Dose: Not Given Documented by: [id number] Cosigned by: [id number] Admin: 01/01/19 23:18 Dose: Not Given Documented by: [id number] Cosigned by: [id number] Lactobacillus [facility]ophilus (Floranex) [facility] Stop: 02/01/19 08:59 Last Admin: 01/03/19 08:34 Dose: 4 tab Documented by: [id number] Admin: 01/02/19 08:19 Dose: 4 tab Documented by: [id number] Levothyroxine Sodium (Levothyroxine Sodium) 137 mcg PO DAILY [facility] Stop: 02/01/19 06:29 Last Admin: 01/03/19 06:26 Dose: 137 mcg Documented by: [id number] Admin: 01/02/19 05:49 Dose: 137 mcg Documented by: [id number] Lisinopril (Zestril) 10 mg PO QA [facility] Stop: 02/01/19 08:59 Last Admin: 01/03/19 08:38 Dose: 10 mg Documented by: [id number] Admin: 01/02/19 08:25 Dose: 10 mg Documented by: [id number] Lajas Carbonate (Lajas Carbonate) 450 mg PO QA [facility] Stop: 02/01/19 08:59 Last Admin: 01/03/19 08:36 Dose: 450 mg Documented by: [id number] Admin: 01/02/19 08:23 Dose: 450 mg Documented by: [id number] Lajas Carbonate (Lajas Carbonate) 600 mg PO [facility] Stop: 02/01/19 01:44 Last Admin: 01/02/19 22:04 Dose: 600 mg Documented by: [id number] Admin: 01/02/19 03:22 Dose: 600 mg Documented by: [id number] Mirabegron (Myrbetriq Er) 25 mg PO [facility] Stop: 01/31/19 21:47 Last Admin: 01/02/19 22:05 Dose: 25 mg Documented by: [id number] Admin: 01/02/19 00:08 Dose: 25 mg Documented by: [id number] Potassium Chloride (Klor-Con M10) 10 meq PO QAM [facility] Stop: 02/01/19 08:59 Last Admin: 01/03/19 08:35 Dose: 10 meq Documented by: [id number] Admin: 01/02/19 08:19 Dose: 10 meq Documented by: [id number] Topiramate (Topamax) 100 mg PO BID [facility] Stop: 01/31/19 21:47 Last Admin: 01/03/19 08:38 Dose: 100 mg Documented by: [id number] Admin: 01/02/19 22:04 Dose: 100 mg Documented by: [id number] Admin: 01/02/19 08:25 Dose: 100 mg Documented by: [id number] Admin: 01/02/19 00:09 Dose: 100 mg Documented by: [id number]
[2019-01-03] MEDS: LACTATED RINGER'S 1,000 ML IV ONE (11:57)
[2019-01-03] MEDS: HEPARIN SOD 5,000 UNIT/0.5 ML VIAL SQ SCH ×2 (12:35→23:47)
[2019-01-03] MEDS: WARFARIN SOD 7.5 MG TAB PO SCH (16:37)
--- NOTE | 2019-01-03 18:26 | Hospitalist Progress Note ---
Date of Service January 03, 2019 Assessment & Plan (1) Sepsis: Present on admission on elevated WBC, fever and abnormal UA Possible related to UTI Received IV ceftriaxone in the ER, then starting on cefepime IV Urine cx grew multiple organisms Blood cx no growth Continue IV cefepime since when she came she had dysuria and last urine cx was contaminated as well Will discontinue abx on discharge Vomiting/Nausea CT pelvis/abdominal showed hepatic steatosis. Correlate with liver function tests to exclude steatohepatitis as a cause for abdominal pain. Lipase on admission normal Advanced diet as tolerated Monitor electrolytes Resolved Atypical chest pain Mostly due to costochondritis from coughing Dobutamine stress ECHO done today negative for ischemia Continue pain control with tylenol prn Dave add PPI Abnormal urinalysis: UA positive for leukocytes and bacteria Urine cx grew multiple organisms (contaminated) Blood and urine cx negative WBC stable Continue IV cefepime until discharge Major depressive disorder with psychotic features Run out of Clozapine since PCP only give 1 week supply Continue lithium and cymbalta last admission she was seen by psych and was recommended to titrate clozapine once it stops Psych on board On Clozapine 50mg BID, Increased by 25 mg daily, and resume weekly CBC with differential for monitoring for neutropenia. Will keep in the hospital until Saturday that we can coordinate care with provider at [facility] who prescribes her psychotropic medications Pulmonary embolism: Recent bilateral PE diagnosis in October 2018 Continue coumadin with INR 1.6 today Continue monitor PT/INR Follow up with the [facility] clinic Diabetes mellitus type 2, controlled A1c of 5.5 in October 2018 Continue insulin sliding scale Continue monitor BS Bilateral lower extremity edema Doppler of B/L LE showed no evidence of DVT Continue Lasix 80mg BID Opiate dependence: History of opiate dependence Use narcotics only when absolutely necessary Hypothyroidism Continue levothyroxine Morbid Obesity BMI 49.1 Counseling on weight lost DVT Ppx: On coumadin with INR 1.6 today On Heparin subq for now until INR therapeutic CODE STATUS FULL CODE Disposition Will transfer to medical Subjective Pt was seen and examined. Lying in bed with no distress Pt said that she would like to meet with case management to talk to her about assisted living and fpc. She said that when she came came she had a burning sensation during urination She said that she feels safe while in the hospital Denies any chest pain, palpitation, dizziness and SOB Physical Exam Physical Exam: General- No acute distress, obesity Head- atraumatic Eyes- PERRL, EOMI, ENT- oropharynx clear Neck- supple, no JVD Lungs- clear to auscultation Heart- regular rhythm; no murmur Abdomen- normal bowel sounds, soft, nontender Extremities- no calf tenderness, B/L edema Neuro- alert, oriented x 3; PERRL, EOMI; no facial palsy; no dysarthria Skin- warm & dry Results & Data Vital Signs (Past 12 Hours) Vital Signs Temp Pulse Resp BP Pulse Ox 01/03/19 15:14 37.0 C 99 H 22 117/77 95 01/03/19 12:12 36.4 C L 99 H 16 124/81 99 01/03/19 07:05 36.6 C 99 H 18 110/71 96
[2019-01-03] MEDS: cloZAPine 25 MG TAB PO SCH (20:20)
[2019-01-03] MEDS: MIRABEGRON ER 25 MG TAB PO SCH (20:20)
[2019-01-03] MEDS: PANTOprazole 40 MG TAB PO SCH (20:22)
[2019-01-04] MEDS: LEVOTHYROXINE SODIUM 137 MCG TABLET PO SCH (06:11)
[2019-01-04] MEDS: HEPARIN SOD 5,000 UNIT/0.5 ML VIAL SQ SCH ×2 (06:12→13:49)
[2019-01-04 07:46] LABS: Creatinine Clr Calc Pharmacy 128.8 ml/min; Est GFR (African American) 93.5; Est GFR (Non-African American) 80.7
[2019-01-04 08:50] LABS: INR 1.1 (0.9-1.1); Prothrombin Time 11.4 Seconds (9.0-12.0)
[2019-01-04] MEDS: TOPIRAMATE 100 MG TAB PO SCH ×2 (09:00→21:16)
[2019-01-04] MEDS: CEFEPIME 2,000 MG in SYRINGE 7.5 ML IV SCH (09:00)
[2019-01-04] MEDS: FERROUS SULFATE 325 MG TAB PO SCH (09:00)
[2019-01-04] MEDS: LISINOPRIL 10 MG TAB PO SCH (09:00)
[2019-01-04] MEDS: LACTOBACILLUS ACIDOPHILUS (FLORANEX) TAB PO SCH (09:02)
[2019-01-04] MEDS: POTASSIUM CHLORIDE 10 MEQ TABCR PO SCH (09:02)
[2019-01-04] MEDS: FUROSEMIDE 80 MG TAB PO SCH ×2 (09:02→21:14)
[2019-01-04] MEDS: LITHIUM CARBONATE 300 MG TAB PO SCH ×2 (09:03→21:10)
[2019-01-04] MEDS: DULOXETINE HCL 30 MG CAP PO SCH (09:05)
[2019-01-04] MEDS: ATORVASTATIN 10 MG TAB PO SCH (09:06)
[2019-01-04] MEDS: BACLOFEN 10 MG TAB PO SCH ×2 (09:06→21:14)
[2019-01-04] MEDS: INSULIN ASPART 100 UNITS/ML 3 ML PEN SC SCH ×4 (09:07→22:36)
[2019-01-04] MEDS: GABAPENTIN 800 MG TAB PO SCH ×4 (09:07→21:08)
[2019-01-04] MEDS: cloZAPine 25 MG TAB PO SCH ×2 (10:01→21:13)
[2019-01-04] MEDS: WARFARIN SOD 7.5 MG TAB PO SCH (16:40)
[2019-01-04] MEDS ORDERED: Heparin IV Standard *NO* Bolus IV SCH (17:30)
--- NOTE | 2019-01-04 17:38 | Hospitalist Progress Note ---
Date of Service January 04, 2019 Assessment & Plan (1) Sepsis: Present on admission on elevated WBC, fever and abnormal UA Possible related to UTI Received IV ceftriaxone in the ER, then starting on cefepime IV Urine cx grew multiple organisms Blood cx no growth On IV cefepime since when she came she had dysuria and last urine cx was contaminated as well IV Cefepime changed to Rocephin IV Will discontinue abx on discharge Vomiting/Nausea CT pelvis/abdominal showed hepatic steatosis. Correlate with liver function tests to exclude steatohepatitis as a cause for abdominal pain. Lipase on admission normal Advanced diet as tolerated Monitor electrolytes Resolved Atypical chest pain Mostly due to costochondritis from coughing Dobutamine stress ECHO done today negative for ischemia Continue pain control with tylenol prn PPI added Abnormal urinalysis: UA positive for leukocytes and bacteria Urine cx grew multiple organisms (contaminated) Blood and urine cx negative WBC stable IV cefepime changed to Rocephin Major depressive disorder with psychotic features Run out of Clozapine since PCP only give 1 week supply Continue lithium and cymbalta last admission she was seen by psych and was recommended to titrate clozapine once it stops Psych on board Continue Increasing clozapine by 25 mg daily, and resume weekly CBC with differential for monitoring for neutropenia. Will keep in the hospital until Saturday that we can coordinate care with provider at [facility] who prescribes her psychotropic medications Pulmonary embolism: Recent bilateral PE diagnosis in October 2018 Continue coumadin with INR 1.1 today Starting on heparin drip bridge until INR therapeutic Continue monitor PT/INR Follow up with the coag clinic Diabetes mellitus type 2, controlled A1c of 5.5 in October 2018 Continue insulin sliding scale Continue monitor BS Bilateral lower extremity edema Doppler of B/L LE showed no evidence of DVT Continue Lasix 80mg BID Opiate dependence: History of opiate dependence Use narcotics only when absolutely necessary Hypothyroidism Continue levothyroxine Morbid Obesity BMI 49.1 Counseling on weight lost DVT Ppx: Starting on heparin drip until INR therapeutic CODE STATUS FULL CODE Disposition Will discharge once medically stable Subjective Pt was seen and examined Lying in bed with no distress Pt said that she feels safer in the hospital She said that she walked around with therapy today She said that she does not have any new complaint Denies any chest pain, palpitation, dizziness and SOB Physical Exam Physical Exam: General- No acute distress, obesity Head- atraumatic Eyes- PERRL, EOMI, ENT- oropharynx clear Neck- supple, no JVD Lungs- clear to auscultation Heart- regular rhythm; no murmur Abdomen- normal bowel sounds, soft, nontender Extremities- no calf tenderness, +edema Neuro- alert, oriented x 3; PERRL, EOMI; no facial palsy; no dysarthria Skin- warm & dry Results & Data Vital Signs (Past 12 Hours) Vital Signs Temp Pulse Pulse Resp BP BP Pulse Ox 01/04/19 15:19 37.3 C 110 H 18 100/66 92 01/04/19 07:30 36.7 C 81 16 119/88 97
[2019-01-04] MEDS ORDERED: Heparin Adult STANDARD Wt-Based Dextrose 5% 25,000 units/500 mL IV SCH (18:15)
[2019-01-04 18:39] LABS: Basophils # (auto) 0.02 K/uL (0-0.2); Basophils % (auto) 0.1 %; Hematocrit (blood only) 40.4 % (37-47); Hemoglobin 12.7 g/dL (12.0-16.0); Immature Granulocytes # (auto) 0.07 K/uL (0.00-0.02); Immature Granulocytes % (auto) 0.5 %; Lymphocytes # (auto) 2.39 K/uL (1.2-3.4); Lymphocytes % (auto) 15.5 %; Mean Corpuscular Hemoglobin 27.7 pg (25-34); Mean Corpuscular Volume 88.2 fL (80-100); Mean Platelet Volume 9.6 fL (7.4-10.4); Monocytes # (auto) 0.76 K/uL (0.11-0.59); Monocytes % (auto) 4.9 %; Neutrophils # (auto) 12.14 K/uL (1.4-6.5); Platelet Count 318 K/uL (130-400); RDW Coefficient of Variation 15.1 % (11.5-14.5); RDW Standard Deviation 48.1 fL (36.4-46.3); Red Blood Count 4.58 M/uL (4.2-5.4); White Blood Count 15.38 K/uL (4.8-10.8)
[2019-01-04 18:44] LABS: Mean Corpuscular Hgb Conc 31.4 g/dL (32-36)
[2019-01-04 18:49] LABS: INR 1.1 (0.9-1.1); Prothrombin Time 11.4 Seconds (9.0-12.0)
[2019-01-04] MEDS: HEPARIN SODIUM/DEXTROSE 25,000 UNITS/500 ML BAG IV SCH (18:58)
[2019-01-04] MEDS: cefTRIAXone SODIUM 2,000 MG in DEXTROSE 5% 50 ML IV SCH (20:57)
[2019-01-04] MEDS: MIRABEGRON ER 25 MG TAB PO SCH (21:10)
[2019-01-04] MEDS: PANTOprazole 40 MG TAB PO SCH (21:16)
[2019-01-05 01:12] LABS: Partial Thromboplastin Ratio 4.7
[2019-01-05 01:17] LABS: Partial Thromboplastin Time 126.4 Seconds (21.0-31.0)
[2019-01-05] MEDS: LEVOTHYROXINE SODIUM 137 MCG TABLET PO SCH (06:05)
[2019-01-05] MEDS: FERROUS SULFATE 325 MG TAB PO SCH (08:39)
[2019-01-05] MEDS: LISINOPRIL 10 MG TAB PO SCH (08:39)
[2019-01-05] MEDS: ATORVASTATIN 10 MG TAB PO SCH (08:39)
[2019-01-05] MEDS: LACTOBACILLUS ACIDOPHILUS (FLORANEX) TAB PO SCH (08:40)
[2019-01-05] MEDS: DULOXETINE HCL 30 MG CAP PO SCH (08:40)
[2019-01-05] MEDS: FUROSEMIDE 80 MG TAB PO SCH ×2 (08:40→20:35)
[2019-01-05] MEDS: BACLOFEN 10 MG TAB PO SCH ×2 (08:40→20:36)
[2019-01-05] MEDS: POTASSIUM CHLORIDE 10 MEQ TABCR PO SCH (08:41)
[2019-01-05] MEDS: GABAPENTIN 800 MG TAB PO SCH ×4 (08:41→20:36)
[2019-01-05] MEDS: cloZAPine 25 MG TAB PO SCH ×2 (08:42→20:35)
[2019-01-05] MEDS: TOPIRAMATE 100 MG TAB PO SCH ×2 (08:43→20:37)
[2019-01-05] MEDS: LITHIUM CARBONATE 300 MG TAB PO SCH ×2 (08:43→20:35)
[2019-01-05] MEDS: INSULIN ASPART 100 UNITS/ML 3 ML PEN SC SCH ×4 (08:47→21:09)
[2019-01-05 09:03] LABS: Hematocrit (blood only) 42.1 % (37-47); Hemoglobin 13.2 g/dL (12.0-16.0); Mean Corpuscular Hemoglobin 27.6 pg (25-34); Mean Corpuscular Hgb Conc 31.4 g/dL (32-36); Mean Corpuscular Volume 87.9 fL (80-100); Mean Platelet Volume 9.6 fL (7.4-10.4); Platelet Count 321 K/uL (130-400); RDW Coefficient of Variation 15.3 % (11.5-14.5); RDW Standard Deviation 48.9 fL (36.4-46.3); Red Blood Count 4.79 M/uL (4.2-5.4); White Blood Count 13.27 K/uL (4.8-10.8)
[2019-01-05 09:25] LABS: INR 1.3 (0.9-1.1); Prothrombin Time 13.4 Seconds (9.0-12.0)
[2019-01-05 09:34] LABS: Creatinine Clr Calc Pharmacy 127.4 ml/min; Est GFR (African American) 92.3; Est GFR (Non-African American) 79.6
[2019-01-05] MEDS: HEPARIN SODIUM/DEXTROSE 25,000 UNITS/500 ML BAG IV SCH ×2 (10:15→14:02)
[2019-01-05] MEDS: WARFARIN SOD 7.5 MG TAB PO SCH (15:24)
[2019-01-05 15:59] LABS: Partial Thromboplastin Ratio 1.5; Partial Thromboplastin Time 41.5 Seconds (21.0-31.0)
[2019-01-05] MEDS ORDERED: HEPARIN IV BOLUS 4,000 UNITS in SYRINGE 0 ML IV ONE (16:30)
--- NOTE | 2019-01-05 19:21 | Hospitalist Progress Note ---
Date of Service January 05, 2019 Assessment & Plan (1) Sepsis: Present on admission on elevated WBC, fever and abnormal UA Possible related to UTI Received IV ceftriaxone in the ER, then starting on cefepime IV Urine cx grew multiple organisms Blood cx no growth On IV cefepime since when she came she had dysuria and last urine cx was contaminated as well IV Cefepime changed to Rocephin IV Will discontinue abx on discharge Will give diflucan x1 since pt complaint of burning sensation Vomiting/Nausea CT pelvis/abdominal showed hepatic steatosis. Correlate with liver function tests to exclude steatohepatitis as a cause for abdominal pain. Lipase on admission normal Advanced diet as tolerated Monitor electrolytes Resolved Atypical chest pain Mostly due to costochondritis from coughing Dobutamine stress ECHO done today negative for ischemia Continue pain control with tylenol prn PPI added Abnormal urinalysis: UA positive for leukocytes and bacteria Urine cx grew multiple organisms (contaminated) Blood and urine cx negative WBC stable IV cefepime changed to Rocephin Major depressive disorder with psychotic features Run out of Clozapine since PCP only give 1 week supply Continue lithium and cymbalta last admission she was seen by psych and was recommended to titrate clozapine once it stops Psych on board Continue Increasing clozapine by 25 mg daily, and resume weekly CBC with differential for monitoring for neutropenia. Will keep in the hospital until Saturday that we can coordinate care with provider at [facility] who prescribes her psychotropic medications Pulmonary embolism: Recent bilateral PE diagnosis in October 2018 Continue coumadin with INR 1.3 today Starting on heparin drip bridge until INR therapeutic Continue monitor PT/INR Follow up with the [facility] Diabetes mellitus type 2, controlled A1c of 5.5 in October 2018 Continue insulin sliding scale Continue monitor BS Bilateral lower extremity edema Doppler of B/L LE showed no evidence of DVT Continue Lasix 80mg BID Opiate dependence: History of opiate dependence Use narcotics only when absolutely necessary Hypothyroidism Continue levothyroxine Morbid Obesity BMI 49.1 Counseling on weight lost DVT Ppx: Starting on heparin drip until INR therapeutic CODE STATUS FULL CODE Disposition Will discharge once medically stable Subjective Pt was seen and examined Lying in bed with no distress Pt said that she is having a burning sensation in her vargina Denies any chest pain, palpitation, dizziness and SOB Physical Exam Physical Exam: General- No acute distress, obesity Head- atraumatic Eyes- PERRL, EOMI, ENT- oropharynx clear Neck- supple, no JVD Lungs- clear to auscultation Heart- regular rhythm; no murmur Abdomen- normal bowel sounds, soft, nontender Extremities- no calf tenderness, +edema Neuro- alert, oriented x 3; PERRL, EOMI; no facial palsy; no dysarthria Skin- warm & dry Results & Data Vital Signs (Past 12 Hours) Vital Signs Temp Pulse Pulse Resp BP BP Pulse Ox 01/05/19 16:14 110/75 98 01/05/19 15:56 88/60 L 01/05/19 15:20 36.5 C 93 H 18 97 01/05/19 08:03 36.4 C L 93 H 16 110/77 97
[2019-01-05] MEDS ORDERED: FLUCONAZOLE 50 MG TAB PO ONE (19:35)
[2019-01-05] MEDS: cefTRIAXone SODIUM 2,000 MG in DEXTROSE 5% 50 ML IV SCH (20:28)
[2019-01-05] MEDS: PANTOprazole 40 MG TAB PO SCH (20:34)
[2019-01-05] MEDS: MIRABEGRON ER 25 MG TAB PO SCH (20:34)
[2019-01-06 00:33] LABS: Partial Thromboplastin Ratio 2.1
[2019-01-06 00:40] LABS: Partial Thromboplastin Time 56.9 Seconds (21.0-31.0)
[2019-01-06] MEDS: LEVOTHYROXINE SODIUM 137 MCG TABLET PO SCH (05:53)
[2019-01-06] MEDS: HEPARIN SODIUM/DEXTROSE 25,000 UNITS/500 ML BAG IV SCH (08:01)
[2019-01-06 08:08] LABS: Hematocrit (blood only) 38.8 % (37-47); Mean Corpuscular Hemoglobin 27.1 pg (25-34); Mean Corpuscular Hgb Conc 30.9 g/dL (32-36); Mean Corpuscular Volume 87.8 fL (80-100); Mean Platelet Volume 10.2 fL (7.4-10.4); Platelet Count 296 K/uL (130-400); RDW Coefficient of Variation 15.5 % (11.5-14.5); RDW Standard Deviation 49.9 fL (36.4-46.3); Red Blood Count 4.42 M/uL (4.2-5.4)
[2019-01-06 08:10] LABS: INR 1.7 (0.9-1.1); Partial Thromboplastin Ratio 2.4
[2019-01-06 08:23] LABS: Partial Thromboplastin Time 65.1 Seconds (21.0-31.0)
[2019-01-06] MEDS ORDERED: PANTOprazole 40 MG TAB PO SCH (09:00)
[2019-01-06] MEDS: FUROSEMIDE 80 MG TAB PO SCH ×2 (09:17→20:24)
[2019-01-06] MEDS: FERROUS SULFATE 325 MG TAB PO SCH (09:17)
[2019-01-06] MEDS: POTASSIUM CHLORIDE 10 MEQ TABCR PO SCH (09:17)
[2019-01-06] MEDS: INSULIN ASPART 100 UNITS/ML 3 ML PEN SC SCH ×4 (09:17→20:56)
[2019-01-06] MEDS: ATORVASTATIN 10 MG TAB PO SCH (09:17)
[2019-01-06] MEDS: DULOXETINE HCL 30 MG CAP PO SCH (09:18)
[2019-01-06] MEDS: LITHIUM CARBONATE 300 MG TAB PO SCH ×2 (09:18→20:25)
[2019-01-06] MEDS: LACTOBACILLUS ACIDOPHILUS (FLORANEX) TAB PO SCH (09:18)
[2019-01-06] MEDS: cloZAPine 25 MG TAB PO SCH ×2 (09:19→20:24)
[2019-01-06] MEDS: BACLOFEN 10 MG TAB PO SCH ×2 (09:19→20:23)
[2019-01-06] MEDS: GABAPENTIN 800 MG TAB PO SCH ×4 (09:20→20:27)
[2019-01-06] MEDS: TOPIRAMATE 100 MG TAB PO SCH ×2 (09:20→20:26)
[2019-01-06] MEDS: LISINOPRIL 10 MG TAB PO SCH (09:20)
[2019-01-06] MEDS: NYSTATIN OINT 15 GM TUBE EXT SCH ×2 (11:01→20:25)
[2019-01-06] MEDS: WARFARIN SOD 7.5 MG TAB PO SCH (15:45)
--- NOTE | 2019-01-06 20:11 | Hospitalist Progress Note ---
Date of Service January 06, 2019 Assessment & Plan (1) Sepsis: Present on admission on elevated WBC, fever and abnormal UA Possible related to UTI Received IV ceftriaxone in the ER, then starting on cefepime IV Urine cx grew multiple organisms Blood cx no growth On IV cefepime since when she came she had dysuria and last urine cx was contaminated as well IV Cefepime changed to Rocephin IV, received 5 days course of IV abx Diflucan x1 diven on 01/05 since pt complaint of burning sensation Nystatin adding BID Vomiting/Nausea CT pelvis/abdominal showed hepatic steatosis. Correlate with liver function tests to exclude steatohepatitis as a cause for abdominal pain. Lipase on admission normal Advanced diet as tolerated Monitor electrolytes Resolved Atypical chest pain Mostly due to costochondritis from coughing Dobutamine stress ECHO done today negative for ischemia Continue pain control with tylenol prn PPI added Abnormal urinalysis: UA positive for leukocytes and bacteria Urine cx grew multiple organisms (contaminated) Blood and urine cx negative WBC stable IV cefepime changed to Rocephin Major depressive disorder with psychotic features Run out of Clozapine since PCP only give 1 week supply Continue lithium and cymbalta last admission she was seen by psych and was recommended to titrate clozapine once it stops Psych on board Continue Increasing clozapine by 25 mg daily, and resume weekly CBC with differential for monitoring for neutropenia. Will keep in the hospital until tomorrow that we can coordinate care with provider at [facility] who prescribes her psychotropic medications Psych will call pharmacy for 1 week supply for Clozapine with titration instructions Pulmonary embolism: Recent bilateral PE diagnosis in October 2018 Continue coumadin with INR 1.7 today On heparin drip bridge until INR therapeutic Please d/c heparin drip once INR above 2 Continue monitor PT/INR Follow up with the [facility] Diabetes mellitus type 2, controlled A1c of 5.5 in October 2018 Continue insulin sliding scale Continue monitor BS Bilateral lower extremity edema Doppler of B/L LE showed no evidence of DVT Continue Lasix 80mg BID Opiate dependence: History of opiate dependence Use narcotics only when absolutely necessary Hypothyroidism Continue levothyroxine Morbid Obesity BMI 49.1 Counseling on weight lost DVT Ppx: on heparin drip until INR therapeutic CODE STATUS FULL CODE Disposition Will discharge once medically stable Subjective Pt was seen and examined Lying in bed with no distress Pt said that she is having burning sensation with urination I gave her diflucanx1 yesterday Denies any chest pain, palpitation and SOB Physical Exam Physical Exam: General- No acute distress, obesity Head- atraumatic Eyes- PERRL, EOMI, ENT- oropharynx clear Neck- supple, no JVD Lungs- clear to auscultation Heart- regular rhythm; no murmur Abdomen- normal bowel sounds, soft, nontender Extremities- no calf tenderness, +edema Neuro- alert, oriented x 3; PERRL, EOMI; no facial palsy; no dysarthria Skin- warm & dry Results & Data Vital Signs (Past 12 Hours) Vital Signs Temp Pulse Resp BP Pulse Ox 01/06/19 15:03 37.0 C 113 H 19 112/69 99
[2019-01-06] MEDS: MIRABEGRON ER 25 MG TAB PO SCH (20:23)
[2019-01-06] MEDS: PANTOprazole 40 MG TAB PO SCH (20:24)
[2019-01-07] MEDS: HEPARIN SODIUM/DEXTROSE 25,000 UNITS/500 ML BAG IV SCH (01:17)
[2019-01-07] MEDS: LEVOTHYROXINE SODIUM 137 MCG TABLET PO SCH (05:26)
[2019-01-07] MEDS: cloZAPine 25 MG TAB PO SCH (07:54)
[2019-01-07] MEDS: LITHIUM CARBONATE 300 MG TAB PO SCH (07:55)
[2019-01-07] MEDS: FUROSEMIDE 80 MG TAB PO SCH (07:56)
[2019-01-07] MEDS: GABAPENTIN 800 MG TAB PO SCH ×2 (07:57→12:19)
[2019-01-07] MEDS: LACTOBACILLUS ACIDOPHILUS (FLORANEX) TAB PO SCH (07:57)
[2019-01-07] MEDS: NYSTATIN OINT 15 GM TUBE EXT SCH (07:58)
[2019-01-07] MEDS: TOPIRAMATE 100 MG TAB PO SCH (07:59)
[2019-01-07] MEDS: LISINOPRIL 10 MG TAB PO SCH (07:59)
[2019-01-07] MEDS: BACLOFEN 10 MG TAB PO SCH (08:00)
[2019-01-07] MEDS: FERROUS SULFATE 325 MG TAB PO SCH (08:01)
[2019-01-07] MEDS: POTASSIUM CHLORIDE 10 MEQ TABCR PO SCH (08:01)
[2019-01-07] MEDS: DULOXETINE HCL 30 MG CAP PO SCH (08:01)
[2019-01-07] MEDS: ATORVASTATIN 10 MG TAB PO SCH (08:02)
[2019-01-07 08:31] LABS: Partial Thromboplastin Ratio > 5.1; Prothrombin Time 19.9 Seconds (9.0-12.0)
[2019-01-07 09:01] LABS: Partial Thromboplastin Time > 139.0 Seconds (21.0-31.0)
[2019-01-07] MEDS: INSULIN ASPART 100 UNITS/ML 3 ML PEN SC SCH ×2 (09:28→12:52)
[2019-01-07 11:20] LABS: BUN Creatinine Ratio 12.7 (10-20); Calcium 8.7 mg/dl (8.5-10.1); Creatinine Clr Calc Pharmacy 151.9 ml/min; Est GFR (African American) 114.2; Est GFR (Non-African American) 98.5; Potassium 3.7 mmol/L (3.5-5.1)
--- NOTE | 2019-01-07 11:29 | Hospitalist Progress Note ---
Date of Service January 07, 2019 Assessment & Plan (1) Sepsis: Present on admission on elevated WBC, fever and abnormal UA Possible related to UTI and the urine culture grew multiple organisms Received IV ceftriaxone in the ER, then starting on cefepime IV and been back to ceftriaxone and finished a 5-day course of intravenous antibiotic Blood cx no growth Diflucan x1 diven on 01/05 since pt complaint of burning sensation Nystatin adding BID Denies any more symptoms Vomiting/Nausea CT pelvis/abdominal showed hepatic steatosis. Correlate with liver function tests to exclude steatohepatitis as a cause for abdominal pain. Lipase on admission normal Advanced diet as tolerated Likely secondary to reflux disease Will increase Protonix to twice daily Atypical chest pain Mostly due to costochondritis from coughing Dobutamine stress ECHO done today negative for ischemia No more pain with chest Major depressive disorder with psychotic features Run out of Clozapine since PCP only give 1 week supply Continue lithium and cymbalta last admission she was seen by psych and was recommended to titrate clozapine once it stops Psych on board appreciate input and recommendation Continue Increasing clozapine by 25 mg daily, and resume weekly CBC with differential for monitoring for neutropenia. Will keep in the hospital until tomorrow that we can coordinate care with provider at [facility] who prescribes her psychotropic medications Psych will call pharmacy for 1 week supply for Clozapine with titration instructions Patient was discharged today Psychiatric service has been consulted and they will provide instruction for medications medications for her psychiatric problems Pulmonary embolism: Recent bilateral PE diagnosis in October 2018 Continue coumadin with INR 1.7 today Received IV heparin and Coumadin INR is 2.0 today Heparin discontinued Diabetes mellitus type 2, controlled A1c of 5.5 in October 2018 Continue insulin sliding scale Continue monitor BS Bilateral lower extremity edema Doppler of B/L LE showed no evidence of DVT Continue Lasix 80mg BID No acute issues today Opiate dependence: History of opiate dependence Use narcotics only when absolutely necessary Hypothyroidism Continue levothyroxine Morbid Obesity BMI 49.1 Counseling on weight lost DVT Ppx: on heparin drip until INR therapeutic CODE STATUS FULL CODE Disposition Medically stable to be discharged today Subjective 01/07 The patient was seen and examined in medical floor She complains to have some epigastric discomfort with nausea but no vomiting Denies any other symptoms of shortness of breath, palpitation, chest pain, abdominal pain or any numbness or tingling in the extremities She is ready to be discharged today Review of Systems Review of Systems: All systems reviewed and unremarkable except as noted below Gastrointestinal: + bloating and + nausea; no abdominal pain and no vomiting Neurologic: + generalized weakness Psychiatric: no anxiety Physical Exam Physical Exam: Sitting on a chair without any acute symptoms Constitutional: well developed, well nourished, + ill appearing and + obese; no acute distress Eyes: PERRL, conjunctivae normal, anicteric sclerae ENMT: external ear and nose normal, oropharynx normal Neck: trachea midline, no thyromegaly Respiratory: normal respiratory effort, lungs clear to auscultation Cardiovascular: Rate/Rhythm: regular rate and regular rhythm Gastrointestinal (Abdomen): Inspection/Auscultation: abdomen normal to inspection Percussion/Palpation: abdomen soft; abdomen nontender Musculoskeletal: no cyanosis or clubbing, extremities motor strength 5/5 Psychiatric: Orientation: alert and cooperative Eye Contact: good eye contact Motor Behavior: no abnormal motor movements Speech: normal rate/rhythm/volume of speech Mood: + depressed mood Thought Process: goal directed thought process Thought Content: reality based without delusions Suicidal Thoughts: denies suicidal thoughts Homicidal Thoughts: denies homicidal thoughts Hallucinations: + auditory hallucinations Cognition: recent memory grossly intact, attention grossly intact and language grossly intact Insight: + fair insight Judgement: + limited judgement Lymphatic: no cervical or axillary lymphadenopathy Results & Data Vital Signs (Past 12 Hours) Vital Signs Temp Pulse Resp BP BP Pulse Ox 01/07/19 07:18 37.1 C 102 H 16 142/75 H 96 01/06/19 23:59 37.1 C 101 H 21 132/77 96 Laboratory Results [facility] 01/07/19 07:46 Sodium 138 Potassium 3.7 Chloride 104 Carbon Dioxide 26 BUN 10 Creatinine 0.78 Glucose 105 H Calcium 8.7 Medications Administered Current Inpatient Medications Acetaminophen (Tylenol) 650 mg PO Q4H PRN PRN Reason: Pain or Fever Stop: 01/31/19 21:47 Last Admin: 01/02/19 09:18 Dose: 650 mg Documented by: Atorvastatin Calcium (Lipitor) [address] [facility] Stop: 02/01/19 08:59 Last Admin: 01/07/19 08:02 Dose: 10 mg Documented by: Baclofen (Lioresal) [address] [facility] Stop: 01/31/19 21:47 Last Admin: 01/07/19 08:00 Dose: 5 mg Documented by: Clozapine (Clozaril) [address] [facility]; Taper Stop: 02/04/19 20:59 Last Admin: 01/07/19 07:54 Dose: 125 mg Documented by: Dextrose (Dextrose 50%) 25 - 50 ml IV UD PRN; Protocol PRN Reason: Hypoglycemia Protocol Stop: 01/31/19 21:47 Duloxetine HCl (Cymbalta) [address] [facility] Stop: 02/01/19 08:59 Last Admin: 01/07/19 08:01 Dose: 90 mg Documented by: Ferrous Sulfate (Feosol) [address] [facility] Stop: 02/01/19 08:59 Last Admin: 01/07/19 08:01 Dose: 325 mg Documented by: Furosemide (Lasix) [address] [facility] Stop: 02/01/19 20:59 Last Admin: 01/07/19 07:56 Dose: 80 mg Documented by: Gabapentin (Neurontin) [address] [facility] Stop: 01/31/19 21:47 Last Admin: 01/07/19 07:57 Dose: 800 mg Documented by: Glucagon (Glucagen) 1 mg SQ UD PRN; Protocol PRN Reason: Hypoglycemia Protocol Stop: 01/31/19 21:47 Glucose (Glucose 40%) 15 - 30 gm PO UD PRN; Protocol PRN Reason: Hypoglycemia Protocol Stop: 01/31/19 21:47 Glucose (Dex4 Glucose) 4 - 8 tabs PO UD PRN; Protocol PRN Reason: Hypoglycemia Protocol Stop: 01/31/19 21:47 Lorazepam (Ativan) 0.25 mg in 0.5 mls @ 0.5 mls/min IV Q6H PRN PRN Reason: Anxiety Stop: 01/31/19 21:47 Promethazine HCl 12.5 mg/ (Sodium Chloride) 50.5 mls @ 202 mls/hr IV Q6H PRN PRN Reason: Nausea And Vomiting Stop: 01/31/19 21:47 Last Infusion: 01/04/19 17:58 Dose: Infused Documented by: Insulin Aspart (Novolog Flexpen) [address] [facility] Stop: 01/31/19 21:47 Last Admin: 01/07/19 09:28 Dose: 2 units Documented by: Lactobacillus Acidophilus (Floranex) [facility] Stop: 02/01/19 08:59 Last Admin: 01/07/19 07:57 Dose: 4 tab Documented by: Levothyroxine Sodium (Levothyroxine Sodium) [address] [facility] Stop: 02/01/19 06:29 Last Admin: 01/07/19 05:26 Dose: 137 mcg Documented by: Lisinopril (Zestril) [address] [facility] Stop: 02/01/19 08:59 Last Admin: 01/07/19 07:59 Dose: 10 mg Documented by: [place] Carbonate ([place] Carbonate) [address] [facility] Stop: 02/01/19 08:59 Last Admin: 01/07/19 07:55 Dose: 450 mg Documented by: [place] Carbonate ([place] Carbonate) 600 mg PO [facility] Stop: 02/01/19 01:44 Last Admin: 01/06/19 20:25 Dose: 600 mg Documented by: Mirabegron (Myrbetriq Er) 25 mg PO [facility] Stop: 01/31/19 21:47 Last Admin: 01/06/19 20:23 Dose: 25 mg Documented by: Miscellaneous (Carbohydrates For Hypoglycemia) 15 - 30 gm PO UD PRN PRN Reason: Hypoglycemia Treatment Stop: 01/31/19 21:47 Nystatin (Mycostatin) [address] [facility] Stop: 02/05/19 09:59 Last Admin: 01/07/19 07:58 Dose: Not Given Documented by: Pantoprazole Sodium (Protonix) [address] [facility] Stop: 02/02/19 20:59 Last Admin: 01/06/19 20:24 Dose: 40 mg Documented by: Potassium Chloride (Klor-Con M10) [address] [facility] Stop: 02/01/19 08:59 Last Admin: 01/07/19 08:01 Dose: 10 meq Documented by: Topiramate (Topamax) [address] [facility] Stop: 01/31/19 21:47 Last Admin: 01/07/19 07:59 Dose: 100 mg Documented by: Warfarin Sodium (Coumadin) 7.5 mg PO DAILY@1600 [facility] Stop: 02/02/19 15:59 Last Admin: 01/06/19 15:45 Dose: 7.5 mg Documented by:
[2019-01-07] MEDS ORDERED: PANTOprazole 40 MG TAB PO SCH ×2 (12:00→21:00)
--- NOTE | 2019-01-08 07:18 | Discharge Summary ---
Date of Service January 08, 2019 Admission HPI Per Admitting Provider She does well-known to us from multiple previous hospitalizations; most recently seen by the consult service 12/22/2018, at which point clozapine was being re- titrated. 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 She presented with with nausea, vomiting, pain and shortness of breath. She was admitted medically for treatment of sepsis secondary to complicated UTI, acute gastroenteritis, workup of chest pain, and started on IV antibiotics. She was continued on her home doses of duloxetine 90 mg daily and lithium 400 mg every morning and 650 mg at bedtime. She had run out of clozapine several days prior to presentation, so was was started on 50 mg at bedtime mother remaining 200 mg was held. On my assessment, she reports that she has been struggling for the past several weeks due to multiple medical problems and hospitalizations, as well as being informed a month ago that due to the severity of her medical conditions, she would not be able to stay at the [facility] and would have to find alternative housing. She has been working on this with her blended keycase assembler, Elizabeth, and they are exploring personal care homes and nursing homes. She continued her clozapine after discharge from the hospital earlier this month, but then ran out of it 3-4 days prior to hospitalization. She called her outpatient clinician at [facility] but was told she needed to get her blood work done before it could be prescribed. Transportation has been a barrier to her following through with the necessary blood work, as she has to get a taxi, and said she did not have money to do so. Since running out of clozapine, her auditory hallucinations of voices have worsened, and she has been feeling more paranoid, fearing that someone is coming to get her at the nursing home and might hurt her. She denies suicidal and homicidal thoughts, and feels safe here. She reports worsening mood with hopelessness. She reports compliance with her other psychotropic medications. Admission Exam Per Admitting Provider Physical Exam: GENERAL: Slightly uncomfortable and anxious, obese, no respiratory distress SKIN: Normal color, warm HEENT: [place] palpebral conjunctivae, no ptosis, dry buccal mucosa NECK : Supple, short neck no tenderness CHEST : CTA, sternal tenderness HEART : RRR, no obvious murmurs ABDOMEN: Some distention, nonspecific tenderness on light palpation EXTREMITIES : RLE swelling, minimal LE tenderness, no other conspicuous deformities noted NEUROLOGIC : Coherent, no facial asymmetry, no other gross focality Principal Diagnosis Sepsis possibly secondary to UTI, history of pulmonary embolism on Coumadin, major depression, hypothyroidism, obesity Discharge Exam Constitutional well developed, well nourished, + ill appearing and + obese; no acute distress Eyes PERRL, conjunctivae normal, anicteric sclerae ENMT external ear and nose normal, oropharynx normal Neck trachea midline, no thyromegaly Respiratory normal respiratory effort, lungs clear to auscultation Cardiovascular Rate/Rhythm: regular rate and regular rhythm Gastrointestinal (Abdomen) Inspection/Auscultation: abdomen normal to inspection Percussion/Palpation: abdomen soft; abdomen nontender Musculoskeletal no cyanosis or clubbing, extremities motor strength 5/5 Psychiatric Orientation: alert and cooperative Eye Contact: good eye contact Motor Behavior: no abnormal motor movements Speech: normal rate/rhythm/volume of speech Mood: + depressed mood Thought Process: goal directed thought process Thought Content: reality based without delusions Suicidal Thoughts: denies suicidal thoughts Homicidal Thoughts: denies homicidal thoughts Hallucinations: + auditory hallucinations Cognition: recent memory grossly intact, attention grossly intact and language grossly intact Insight: + fair insight Judgement: + limited judgement Lymphatic no cervical or axillary lymphadenopathy Discharge Data Allergies Allergy/AdvReac Type Severity Reaction Status Date / Time erythromycin base Allergy Mild Unknown Verified 12/30/18 07:50 cephalexin Allergy Unknown . Verified 12/30/18 07:50 Penicillins Allergy Unknown . Verified 12/30/18 07:50 Sulfa (Sulfonamide Allergy Unknown . Verified 12/30/18 07:50 Antibiotics) Consultations 01/01/19 19:17 ED Decision to Admit Stat 01/02/19 19:39 Consult Psychiatry Routine Ordered Studies 01/01/19 16:55 CT abd pelvis IV con only Stat 01/01/19 20:07 US venous doppler LE Urgent Hospital Course (1) Sepsis: Present on admission on elevated WBC, fever and abnormal UA Possible related to UTI and the urine culture grew multiple organisms Received IV ceftriaxone in the ER, then starting on cefepime IV and been back to ceftriaxone and finished a 5-day course of intravenous antibiotic Blood cx no growth Diflucan x1 diven on 01/05 since pt complaint of burning sensation Nystatin adding BID Denies any more symptoms Vomiting/Nausea CT pelvis/abdominal showed hepatic steatosis. Correlate with liver function tests to exclude steatohepatitis as a cause for abdominal pain. Lipase on admission normal Advanced diet as tolerated Likely secondary to reflux disease Will increase Protonix to twice daily Atypical chest pain Mostly due to costochondritis from coughing Dobutamine stress ECHO done today negative for ischemia No more pain with chest Major depressive disorder with psychotic features Run out of Clozapine since PCP only give 1 week supply Continue lithium and cymbalta last admission she was seen by psych and was recommended to titrate clozapine once it stops Psych on board appreciate input and recommendation Continue Increasing clozapine by 25 mg daily, and resume weekly CBC with differential for monitoring for neutropenia. Will keep in the hospital until tomorrow that we can coordinate care with provider at [facility] who prescribes her psychotropic medications Psych will call pharmacy for 1 week supply for Clozapine with titration instructions Patient was discharged today Psychiatric service has been consulted and they will provide instruction for medications medications for her psychiatric problems Pulmonary embolism: Recent bilateral PE diagnosis in October 2018 Continue coumadin with INR 1.7 today Received IV heparin and Coumadin INR is 2.0 today Heparin discontinued Diabetes mellitus type 2, controlled A1c of 5.5 in October 2018 Continue insulin sliding scale Continue monitor BS Bilateral lower extremity edema Doppler of B/L LE showed no evidence of DVT Continue Lasix 80mg BID No acute issues today Opiate dependence: History of opiate dependence Use narcotics only when absolutely necessary Hypothyroidism Continue levothyroxine Morbid Obesity BMI 49.1 Counseling on weight lost DVT Ppx: on heparin drip until INR therapeutic CODE STATUS FULL CODE Disposition Medically stable to be discharged today Total Time Total Time Spent Total Time Spent (In Minutes): 35 minutes Total Time Includes: Examination of the Patient, Discharge Planning, Medication Reconciliation and Communication With Other Providers Discharge Plan Discharge Items Patient Disposition: Personal Half-Way Reason For Visit: SEPSIS,CP Discharge Diagnosis: Sepsis possibly secondary to UTI, history of pulmonary embolism on Coumadin, major depression, hypothyroidism, obesity Condition on Discharge: Good Activity: Resume your previous activity Non-emergency contact: Primary Care Provider Call non-emergency contact if: you have any medication questions and your symptoms worsen Follow-up/Referrals: [facility] [Outside] - 01/12/19 1:20 pm (follow up appt with Lora on saturdayJanuary 12 at 1:20 pm) Fernando Stafford DO [Primary Care Provider] - 01/12/19 1:25 pm Diet: Carb Consistent or DM2 Addtl Attending Provider Instructions: Please take precaution to avoid falls New Medications: Clonazepam 100 [place] twice daily Clozapine 25 mg twice daily: Previous doses of Clozapine have been discontinued Protonix 40 mg twice daily Addtl Machinist/Machine Builder Provider Instructions: Psychiatry: A one-week prescription for clozapine was sent in to your pharmacy. You will need to follow up with weekly labwork (CBC and differential) and with Lora day [facility] on SaturdayJanuary 12 at 1:20pm. Follow up with your keycase assembler, Elizabeth, as needed. Pending Studies at Discharge: No Stand-Alone Forms: Call Back Authorization, My [facility] Skilled Items Patient informed of condition?: Yes DNR: No Discharge Level of Care: Skilled Communicable Disease: No Discharge Prognosis: Stable Lines: None Urinary Catheter: No Medications and DC Order Prescriptions: New clozapine [Clozaril] 25 mg Tablet 25 mg PO BID Qty: 14 RF: 0 clozapine 100 mg tablet 100 mg PO BID Qty: 14 RF: 0 nystatin 100,000 unit/gram Ointment 1 applic EXT BID 30 Days Qty: 1 RF: 0 pantoprazole 40 mg Tablet,Delayed Release (Dr/Ec) 40 mg PO BID 30 Days Qty: 60 RF: 0 Continued Risperdal Consta 37.5 mg/2 mL syringe 37.5 mg IM Q14D RF: 0 gabapentin 800 mg tablet 800 mg PO QID 30 Days Qty: 120 RF: 5 topiramate 100 mg tablet 100 mg PO BID 30 Days Qty: 60 RF: 5 atorvastatin [Lipitor] 10 mg tablet 10 mg PO QAM RF: 0 potassium chloride 10 mEq tablet extended release 10 meq PO QAM RF: 0 ondansetron 8 mg tablet,disintegrating 8 mg PO DIRECTED PRN (Reason: Nausea) RF: 0 lithium carbonate 600 mg capsule 600 mg PO HS RF: 0 docusate sodium [Colace] 100 mg Capsule 100 mg PO BID RF: 0 duloxetine 30 mg capsule,delayed release(DR/EC) 30 mg PO QAM RF: 0 metformin 500 mg tablet 500 mg PO BIDM RF: 0 lithium carbonate 150 mg capsule 150 mg PO QAM RF: 0 baclofen 10 mg tablet 5 mg PO BID RF: 0 lisinopril 10 mg tablet 10 mg PO QAM RF: 0 polyethylene glycol 3350 17 gram/dose powder 17 g PO BID PRN (Reason: Constipation) RF: 0 ferrous sulfate 325 mg (65 mg iron) Tablet,Delayed Release (Dr/Ec) 325 mg PO QAM RF: 0 duloxetine 60 mg capsule,delayed release(DR/EC) 60 mg PO QAM RF: 0 Lactobacillus acidophilus Capsule 1 cap PO QAM RF: 0 levothyroxine 137 mcg tablet 137 mcg PO QAM RF: 0 warfarin 5 mg Tablet 7.5 mg PO 3XWK RF: 0 lithium carbonate 300 mg capsule 300 mg PO QAM RF: 0 warfarin 5 mg tablet 5 mg PO 4XWK RF: 0 Myrbetriq 25 mg tablet extended release 24 hr 25 mg PO HS RF: 0 Changed furosemide 80 mg tablet 80 mg PO BID Qty: 0 RF: 0 Discontinued clozapine 200 mg tablet 200 mg PO HS RF: 0 clozapine 100 mg tablet 100 mg PO DIRECTED RF: 0 Discharge Orders: Discharge Order (Routine); Ordered 01/07/19 Ordered By: Carissa De Jesus/Other Patient Handouts: Coumadin Admission Data Admit Date/Time: 01/01/19 20:18 Attending Provider: Carissa aCbrera Admit Provider: Vinod Alvarez Primary Care Provider: Fernando Stafford Other Providers: Vinod Alvarez ; Patrica Iqbal Wilkerson Other Interventions: Discharge Summary Assessment (RN) Last Done: 01/07/19 12:56 DC Date/Time DO NOT enter until pt leaves facility: 01/07/19 14:13
== END 2019-01-07 14:13 | disposition home or self-care (01) | DRG 872 ==
LOC: ED 14:54 → SUATTDRO 20:18 → 2S 20:18 → 3W 01-03 18:28

== ENCOUNTER 2019-01-16 14:15 | Observation (INO) ==
--- NOTE | 2019-01-16 15:18 | XRay Report ---
XR chest 1V portable HISTORY: 33 years-old Female Chest Pain acute atypical chest pain COMPARISON: Chest radiograph 01/13/2019 TECHNIQUE: Portable AP view of the chest FINDINGS: Cardiomediastinal and hilar silhouettes are within normal limits. Lungs are mildly hypoinflated. No p neumothorax, pleural effusion, focal airspace consolidation or overt pulmonary edema. Mild right eliazar diaphragmatic elevation, unchanged. Bones of the chest appear grossly intact. Fusion hardware of the lower cervical spine. IMPRESSION: Hypoinflation without acute process. The above report was generated using voice recognition software. It may contain grammatical, syntax o r spelling errors. Electronically signed by: Cody Borges M.D. 01/16/2019 3:17 PM
[2019-01-16 16:31] LABS: Basophils # (auto) 0.02 K/uL (0-0.2); Basophils % (auto) 0.1 %; Hematocrit (blood only) 42.3 % (37-47); Hemoglobin 13.6 g/dL (12.0-16.0); Immature Granulocytes # (auto) 0.17 K/uL (0.00-0.02); Lymphocytes # (auto) 2.13 K/uL (1.2-3.4); Lymphocytes % (auto) 12.5 %; Mean Corpuscular Hemoglobin 28.5 pg (25-34); Mean Corpuscular Hgb Conc 32.2 g/dL (32-36); Mean Corpuscular Volume 88.5 fL (80-100); Mean Platelet Volume 9.7 fL (7.4-10.4); Monocytes # (auto) 0.76 K/uL (0.11-0.59); Monocytes % (auto) 4.5 %; Neutrophils # (auto) 13.98 K/uL (1.4-6.5); Neutrophils % (auto) 81.9 %; Platelet Count 323 K/uL (130-400); RDW Coefficient of Variation 15.8 % (11.5-14.5); RDW Standard Deviation 51.4 fL (36.4-46.3); Red Blood Count 4.78 M/uL (4.2-5.4); White Blood Count 17.06 K/uL (4.8-10.8)
[2019-01-16 16:47] LABS: Pregnancy Test, Serum Negative (Negative)
[2019-01-16] MEDS ORDERED: GI COCKTAIL ED USE PO ONE (17:41)
[2019-01-16 18:10] LABS: Alanine Aminotransferase 45 U/L (12-78); Aspartate Aminotransferase 34 U/L (15-37); BUN Creatinine Ratio 15.3 (10-20); Blood Urea Nitrogen 17 mg/dl (7-18); Calcium 8.5 mg/dl (8.5-10.1); Carbon Dioxide 27 mmol/L (21-32); Chloride 101 mmol/L (98-107); Est GFR (African American) 76.2; Est GFR (Non-African American) 65.7; Glucose 100 mg/dl (70-99); Lipase 145 U/L (73-393); Potassium 3.7 mmol/L (3.5-5.1); Sodium 137 mmol/L (136-145)
[2019-01-16 18:13] LABS: Albumin Globulin Ratio 0.8 (0.9-2); Alkaline Phosphatase 92 U/L (45-117); Bilirubin,Total 0.3 mg/dl (0.2-1); Globulin 3.7 gm/dl (2.5-4.0); Total Protein 6.7 gm/dl (6.4-8.2); Troponin I < 0.015 ng/ml (0-0.045)
[2019-01-16 18:21] LABS: Acetaminophen < 2 ug/ml (10-30); Salicylate < 1.7 mg/dl (2.8-20)
[2019-01-16] MEDS ORDERED: NITROGLYCERIN SL 0.4 MG/TAB TAB SL STA (18:26)
[2019-01-16 19:10] LABS: INR 2.1 (0.9-1.1); Prothrombin Time 20.7 Seconds (9.0-12.0)
[2019-01-16] MEDS ORDERED: SODIUM CHLORIDE 0.9% 1000ML 1,000 ML IV STA (19:10)
[2019-01-16] MEDS ORDERED: SODIUM CHLORIDE 0.9% 1000ML 1,000 ML IV ONE (19:10)
[2019-01-16 19:13] LABS: Appearance Urine Clear (Clear); Bilirubin Urine Negative (Negative); Blood Urine Negative (Negative); Color Urine Yellow; Glucose Urine UA Negative (Negative); Ketones Urine Negative (Negative); Leukocyte Esterase Urine Negative (Negative); Nitrite Urine Negative (Negative); Protein Urine Negative (Negative); Urobilinogen Urine Negative (Negative)
[2019-01-16] MEDS ORDERED: ACETAMINOPHEN 1,000 MG/100 ML VIAL IV STA (20:01)
--- NOTE | 2019-01-16 21:00 | History & Physical Report ---
Date of Service January 16, 2019 Assessment & Plan (1) Chest pain: (2) Bronchitis: (3) Diabetes mellitus type 2, controlled: (4) Pulmonary embolism: (5) Hypothyroidism: (6) Leukocytosis: (7) Nausea: Serial troponins, CTA of the chest, to rule out PE, observation status, psych eval, hold narcotics.Continue outpatient medications where appropriate, monitor daily labs. ROS-No Headache, No Visual Changes, Positive Nausea, No Vomiting, No Fever, No Chills, No Neck Pain or Stiffness, Positive Chest Pain, No Palpitations, No SOB, No [place]ICK, No Cough, No Sputum, No Wheezing, No Abdominal Pain, No Diarrhea, No Hematemesis, No Hemoptysis, No Unexpected Weight Loss, No Flank pain, No Melena, No Hematochezia, No Frequency, No Urgency, No Burning, No Hematuria, No Rashes, No Diaphoresis. Appetite is Normal Physical Exam Gen-AAO x 3, NAD, Afebrile, obese Head-NCAT, EOMI, PERRLA, Anicteric Sclera, No Posterior Pharyngeal Erythema Neck-Supple, No JVD, No Thyromegaly, No Masses, No LAD, No Bruits Lungs-Clear to Auscultation Bilaterally, No Rales, No Rhonchi, No Wheezing, No Crepitus Chest-No S4, +S1, +S2, No S3, No Murmurs, No Rubs, No Gallops, No Ectopy Abdomen-Soft, Bowel Sounds Present, Non Tender, Non Distended, No Hepatomegaly, No Splenomegaly, No Palpable Masses, No Rebound, No Rigidity, No Guarding Musculoskeletal-Full Range of Motion Bilaterally, No CVAT Extremities-No Cyanosis, No Clubbing, No Edema Nuero-Cranial Nerves II-XII grossly intact, Motor WNL, DTRs WNL, Strength WNL, Non Focal Psych-Anxious History of Present Illness 33-year-old female with a past medical history of schizoaffective disorder, type 2 diabetes, anxiety, GERD, hypothyroidism, cervicalgia, migraines, chronic back pain, psychosocial dysfunction, drug-seeking behavior, major depression with psychotic features, opioid dependence, UTI, concussion, PE who presents tonight with chest pain in the center of her chest. Her first troponin was negative and I was asked to evaluate her. In the ER she had sinus tach and chest pain that she said was worse with inspiration, even though her INR is 2.1 I will get a CTA of the chest to rule out a PE. I will also consult psychiatry. Primary Care Provider: Fernando Stafford DO Allergies Allergy/AdvReac Type Severity Reaction Status Date / Time erythromycin base Allergy Mild Unknown Verified 01/16/19 16:13 cephalexin Allergy Unknown . Verified 01/16/19 16:13 Penicillins Allergy Unknown . Verified 01/16/19 16:13 Sulfa (Sulfonamide Allergy Unknown . Verified 01/16/19 16:13 Antibiotics) Home Medications Home Medications Medication Instructions Recorded Confirmed Type Lactobacillus acidophilus 1 cap PO QAM 05/23/18 01/16/19 History baclofen 5 mg PO BID 05/23/18 01/16/19 History duloxetine 60 mg PO QAM 05/23/18 01/16/19 History ferrous sulfate 325 mg PO QAM 05/23/18 01/16/19 History lisinopril 10 mg PO QAM 05/23/18 01/16/19 History lithium carbonate 150 mg PO QAM 05/23/18 01/16/19 History metformin 500 mg PO BIDM 05/23/18 01/16/19 History polyethylene glycol 3350 17 g PO BID PRN 05/23/18 01/16/19 History atorvastatin [Lipitor] 10 mg PO QAM 08/28/18 01/16/19 History docusate sodium [Colace] 100 mg PO BID 08/28/18 01/16/19 History lithium carbonate 600 mg PO HS 08/28/18 01/16/19 History ondansetron 8 mg PO DIRECTED PRN 08/28/18 01/16/19 History potassium chloride 10 meq PO QAM 08/28/18 01/16/19 History duloxetine 30 mg PO QAM 12/09/18 01/16/19 History levothyroxine 137 mcg PO QAM 12/19/18 01/16/19 History warfarin 7.5 mg PO 3XWK 12/19/18 01/16/19 History gabapentin 800 mg tablet 800 mg PO QID 30 Days #120 tab 12/30/18 01/16/19 Rx risperidone microspheres 37.5 mg/2 37.5 mg IM Q14D 12/30/18 01/16/19 History mL intramuscular syringe topiramate 100 mg tablet 100 mg PO BID 30 Days #60 tab 12/30/18 01/16/19 Rx Myrbetriq 25 mg PO HS 01/01/19 01/16/19 History lithium carbonate 300 mg PO QAM 01/01/19 01/16/19 History warfarin 5 mg PO 4XWK 01/01/19 01/16/19 History clozapine 100 mg PO BID #14 tab 01/07/19 01/16/19 Rx clozapine [Clozaril] 25 mg PO BID #14 tab 01/07/19 01/16/19 Rx furosemide 80 mg PO BID #0 tab 01/07/19 01/16/19 Rx nystatin 1 applic EXT BID 30 Days #1 tube 01/07/19 01/16/19 Rx pantoprazole 40 mg PO BID 30 Days #60 tab 01/07/19 01/16/19 Rx Past Med/Surg History Medical History Diabetes mellitus type 2, controlled (Chronic) Constipation (Chronic) Anxiety (Chronic) GERD (gastroesophageal reflux disease) (Chronic) Hypothyroidism (Chronic) Cervicalgia (Chronic) Migraine headache (Chronic) Back pain (Acute) Chronic pain associated with significant psychosocial dysfunction (Chronic) Drug-seeking behavior (Acute) Major depressive disorder with psychotic features (Chronic) Opiate dependence (Chronic) UTI (urinary tract infection) (Acute) Schizo affective schizophrenia Post-concussion headache (Inactive) Pulmonary embolism (Inactive) Surgical History H/O discectomy (Resolved) H/O arthroscopy of left knee (Resolved) Social History Preferred Language: Indonesian Communication Ability: Impaired Lock Operator Required: No Beliefs That Will Affect Care: None marital status: Single Current Living Situation: Other Current Living Situation Comment: residential Feels Safe at Home: Yes Smoking Status: Never smoker Second Hand Exposure: No ; Hx Alcohol Use: No Hx Substance Use: No Results & Data Vital Signs (Past 12 Hours) Vital Signs Temp Pulse Pulse Resp BP BP Pulse Ox 01/16/19 20:01 104 H 18 122/74 94 01/16/19 19:25 107 H 16 103/43 L 97 01/16/19 19:01 96 H 18 109/57 L 96 01/16/19 18:00 100 H 25 H 140/85 100 01/16/19 17:30 100 H 30 H 135/83 98 01/16/19 17:00 106 H 20 119/77 98 01/16/19 16:38 99 H 31 H 99/62 L 99 01/16/19 16:35 101 H 21 99/76 L 99 01/16/19 16:30 101 H 27 H 01/16/19 16:00 101 H 27 H 01/16/19 15:30 103 H 27 H 145/125 H 98 01/16/19 15:05 103 H 23 97 01/16/19 15:00 101 H 17 126/65 97 01/16/19 14:25 36.6 C 105 H 20 115/81 95 Allergies erythromycin base Allergy (Mild, Verified 01/16/19 16:13) Unknown cephalexin Allergy (Unknown, Verified 01/16/19 16:13) . Penicillins Allergy (Unknown, Verified 01/16/19 16:13) . Sulfa (Sulfonamide Antibiotics) Allergy (Unknown, Verified 01/16/19 16:13) . Height/Weight/Isolation Height 5 ft 4 in Chemistry 01/16/19 01/16/19 16:16 17:22 Sodium Cancelled 137 Potassium Cancelled 3.7 Chloride Cancelled 101 Carbon Dioxide Cancelled 27 Anion Gap Cancelled 9.0 BUN Cancelled 17 Creatinine Cancelled 1.09 Glucose Cancelled 100 H Urinalysis 01/16/19 19:00 Urine Color Yellow Urine Appearance Clear Urine pH 6.0 Ur Specific [place] 1.010 Urine Protein Negative Urine Glucose (UA) Negative Urine Ketones Negative Urine Blood Negative Urine Nitrite Negative Urine Bilirubin Negative (1) Chest pain Chest pain type: other chest pain Qualified Code(s): R07.89 - Other chest pain; R07.8 - Other chest pain (2) Diabetes mellitus type 2, controlled Diabetes mellitus tank terminal gauger insulin use: without halfway use (3) Pulmonary embolism Acute cor pulmonale presence: without acute cor pulmonale Chronicity: acute Pulmonary embolism type: unspecified Qualified Code(s): I26.99 - Other pulmonary embolism without acute cor pulmonale
[2019-01-16] MEDS ORDERED: GLUCOSE 10 TABS/TUBE PO PRN (22:05)
[2019-01-16] MEDS ORDERED: CARBOHYDRATES FOR HYPOGLYCEMIA PO PRN (22:05)
[2019-01-16] MEDS ORDERED: GLUCAGON FOR INJ 1 MG VIAL SQ PRN (22:05)
[2019-01-16] MEDS ORDERED: ACETAMINOPHEN 325 MG TAB PO PRN (22:05)
[2019-01-16] MEDS ORDERED: POLYETHYLENE (MIRALAX) 17 GM PACK PO PRN (22:05)
[2019-01-16] MEDS ORDERED: ONDANSETRON 8MG OD TAB PO PRN (22:05)
[2019-01-16] MEDS ORDERED: GLUCOSE 40% GEL 15 GM TUBE PO PRN (22:05)
[2019-01-16] MEDS ORDERED: DEXTROSE 50% 50 ML SYRINGE IV PRN (22:05)
[2019-01-16] MEDS ORDERED: PHARMACY GLYCEMIC MGMT CONSULT PRN (22:15)
[2019-01-16] MEDS ORDERED: PATIENT'S HEIGHT AND/OR WEIGHT NEEDED SCH (22:30)
[2019-01-16] MEDS ORDERED: cefTRIAXone SODIUM 1,000 MG in DEXTROSE 5% 50 ML IV SCH (23:00)
[2019-01-16] MEDS ORDERED: OPTIRAY 320 125ml IV PRN (23:04)
--- NOTE | 2019-01-16 23:09 | Emergency Department Note ---
Entered by Hilaria Hahn acting as a scribe for ED Provider Note CHIEF COMPLAINT: Chest pain HISTORY OF PRESENT ILLNESS: The patient is a 33 year old female who presents to the Emergency Room with complaints of chest pain that started a few days ago. The patient states that the pain is in the middle of her chest and it feels like someone is pounding her with a sledge hammer. The patient states that she took Nitroglycerin which helped the pain. The patient states that she has also been experiencing auditory hallucinations which tell her that 2 wrestlers from [place] are coming to get her, her sister and her sisters children. The patient notes that she would be willing to be admitted for mental health reasons. Pt denies LOC, headache, fevers, chills, diaphoresis, visual changes, neck pain, breathing difficulties, nausea, vomiting, abdominal pain, back pain, melena, hematochezia, urinary symptoms, numbness, weakness, lymphadenopathy, rash, or other complaints. REVIEW OF SYSTEMS: See HPI for pertinent positives and negatives. A total of ten systems were reviewed and were otherwise negative. PMHx/PSHx: Diabetes, schizoaffective disorder, GERD, cervicalgia. SOCIAL HISTORY: Patient lives at home. PHYSICAL EXAM: GENERAL: Awake, alert, uncomfortable-appearing, in no distress HENT: Normocephalic, atraumatic. Oropharynx unremarkable. EYES: PERRL. Normal conjunctiva. Sclera non-icteric. NECK: Inspection normal. Non-tender. Supple. No nuchal rigidity. FROM. No masses. RESPIRATORY: Clear to auscultation. No wheezes. No rales. Normal respiratory effort. CARDIAC: Tachycardic rate. Normal rhythm. No murmurs. No rubs. Extremities warm and well perfused. Pulses equal. No JVD. GI: Soft, non-distended. No tenderness to palpation. No rebound or guarding. No masses. RECTAL: Deferred. MUSCULOSKELETAL: Atraumatic. Chest examination reveals no tenderness. The back is symmetrical on inspection without obvious abnormality. There is no CVA tenderness to palpation. No joint edema. LOWER EXTREMITIES: 2+ lower extremity edema. Calves are equal size bilaterally and non-tender. No discoloration. NEURO: Normal sensorium. No sensory or motor deficits noted. SKIN: No rash or jaundice noted. PSYCH: Auditory hallucinations with vague SI. Depressed mood, flat affect. EMERGENCY DEPARTMENT COURSE: 1540: Past medical records reviewed. The patient was evaluated in room B8, and a complete history and physical examination were performed. 1914: I updated the patient and she appears to be comfortable. 2022: Perez is going to come evaluate the patient. 2111: Perez evaluated the patient and believes that she should be admitted. Dr. Aurelia Todd, Hospitalist will evaluate the patient for further management. MEDICAL DECISION MAKING: Prior records/ancillary studies reviewed. Triage Nursing notes reviewed and agree them. The patient's history was concerning for chest pain as well as thoughts of self- harm/hallucinations. Differential diagnosis: Etiologies such as cardiac ischemia, aortic dissection, pulmonary embolism, pneumonia, pneumothorax, musculoskeletal, infections, pericarditis, myocarditis, esophageal rupture, gastrointestinal, as well as others were entertained. Physical examination: As above. ER treatment provided: GI cocktail On reassessment the patient felt no better. Patient stated that she is previously had nitroglycerin for her chest pain. She was given 1 sublingual nitroglycerin. This did not help with her chest pain. She did get a headache and also had some transient hypotension. She was treated with normal saline hydration as well as IV Tylenol. Diagnostic interpretation by me: The electrocardiogram was negative for pathologic change. Sinus tachycardia. The labs revealed a moderate leukocytosis. Troponin normal. LFTs unremarkable as well as chemistry panel. The patient's INR is therapeutic. Imaging studies: Chest x-ray negative for acute process. The patient has complaint of chest pain. She has a leukocytosis which is slightly worse than prior but she frequently has elevated white blood cell count on testing. The patient also felt that she was not safe at home and was concerned about her hallucinations and suicidal thoughts. She will need a medical evaluation and psychiatry consult. Consultation: A consultation was placed with the hospitalist. The case was discussed and diagnostics were reviewed. The patient was evaluated in the ER for further treatment. IMPRESSION: Substernal chest pain Leukocytosis Auditory hallucinations Mood disorder PLAN: Being Evaluated by Hospitalist The scribe's documentation has been prepared under my direction and personally reviewed by me in its entirety. I confirm that the note above accurately reflects all work, treatment, procedures, and medical decision making performed by me. Impression & Plan Chest pain, Leukocytosis Past Med/Surg History Medical History Diabetes mellitus type 2, controlled (Chronic) Constipation (Chronic) Anxiety (Chronic) GERD (gastroesophageal reflux disease) (Chronic) Hypothyroidism (Chronic) Cervicalgia (Chronic) Migraine headache (Chronic) Back pain (Acute) Chronic pain associated with significant psychosocial dysfunction (Chronic) Drug-seeking behavior (Acute) Major depressive disorder with psychotic features (Chronic) Opiate dependence (Chronic) UTI (urinary tract infection) (Acute) Schizo affective schizophrenia Post-concussion headache (Inactive) Pulmonary embolism (Inactive) Surgical History H/O discectomy (Resolved) H/O arthroscopy of left knee (Resolved) Social History Preferred Language: Citizen Of [place] Communication Ability: Impaired Goring Cutter Required: No Beliefs That Will Affect Care: None marital status: Single Current Living Situation: Other Current Living Situation Comment: Correction Other Information That Helps Us Care for You: No Feels Safe at Home: Yes Safety Concerns: Feels Safe At This Time Smoking Status: Never smoker Second Hand Exposure: No ; Hx Alcohol Use: No Hx Substance Use: No Results & Data Vital Signs Vital Signs - 24 hr 01/16/19 14:25 01/16/19 15:00 01/16/19 15:05 Temperature 36.6 C Temperature Source Oral Sepsis Recent Fever Within 48 Hours No Sepsis New/Unexplained Change in Mental Status No Sepsis Action Taken by Nursing No Action Required Pulse Rate 105 H 101 H 103 H Pulse Rate [Apical] Pulse Rate from SpO2 Sensor 103 H 103 H Pulse Rhythm Regular Pulse Rhythm [Apical] Pulse Strength Normal Pulse Strength [Apical] Respiratory Rate 20 17 23 Respiratory Effort / Characteristics Respiratory Depth Respiratory Pattern Blood Pressure 115/81 126/65 Blood Pressure [Right Arm] Blood Pressure Mean 92 85 Blood Pressure Mean [Right Arm] Blood Pressure Position Sitting Blood Pressure Position [Right Arm] Pulse Oximetry 95 97 97 Oxygen Delivery Method 01/16/19 15:30 01/16/19 16:00 01/16/19 16:30 Temperature Temperature Source Sepsis Recent Fever Within 48 Hours Sepsis New/Unexplained Change in Mental Status Sepsis Action Taken by Nursing Pulse Rate 103 H 101 H 101 H Pulse Rate [Apical] Pulse Rate from SpO2 Sensor 107 H Pulse Rhythm Pulse Rhythm [Apical] Pulse Strength Pulse Strength [Apical] Respiratory Rate 27 H 27 H 27 H Respiratory Effort / Characteristics Respiratory Depth Respiratory Pattern Blood Pressure 145/125 H Blood Pressure [Right Arm] Blood Pressure Mean 131 Blood Pressure Mean [Right Arm] Blood Pressure Position Blood Pressure Position [Right Arm] Pulse Oximetry 98 Oxygen Delivery Method 01/16/19 16:35 01/16/19 16:38 01/16/19 17:00 Temperature Temperature Source Sepsis Recent Fever Within 48 Hours Sepsis New/Unexplained Change in Mental Status Sepsis Action Taken by Nursing Pulse Rate 101 H 99 H 106 H Pulse Rate [Apical] Pulse Rate from SpO2 Sensor 101 H 99 H 107 H Pulse Rhythm Regular Pulse Rhythm [Apical] Pulse Strength Pulse Strength [Apical] Respiratory Rate 21 31 H 20 Respiratory Effort / Characteristics Respiratory Depth Respiratory Pattern Blood Pressure 99/76 L 99/62 L 119/77 Blood Pressure [Right Arm] Blood Pressure Mean 83 74 91 Blood Pressure Mean [Right Arm] Blood Pressure Position Blood Pressure Position [Right Arm] Pulse Oximetry 99 99 98 Oxygen Delivery Method Room Air 01/16/19 17:30 01/16/19 18:00 01/16/19 19:01 Temperature Temperature Source Sepsis Recent Fever Within 48 Hours Sepsis New/Unexplained Change in Mental Status Sepsis Action Taken by Nursing Pulse Rate 100 H 100 H Pulse Rate [Apical] 96 H Pulse Rate from SpO2 Sensor 100 H 100 H Pulse Rhythm Pulse Rhythm [Apical] Regular Pulse Strength Pulse Strength [Apical] Normal Respiratory Rate 30 H 25 H 18 Respiratory Effort / Characteristics Non-Labored Respiratory Depth Normal Respiratory Pattern Regular Blood Pressure 135/83 140/85 Blood Pressure [Right Arm] 109/57 L Blood Pressure Mean 100 103 Blood Pressure Mean [Right Arm] 74 Blood Pressure Position Blood Pressure Position [Right Arm] Pulse Oximetry 98 100 96 Oxygen Delivery Method Room Air 01/16/19 19:25 01/16/19 20:01 Temperature Temperature Source Sepsis Recent Fever Within 48 Hours Sepsis New/Unexplained Change in Mental Status Sepsis Action Taken by Nursing Pulse Rate Pulse Rate [Apical] 107 H 104 H Pulse Rate from SpO2 Sensor Pulse Rhythm Pulse Rhythm [Apical] Regular Regular Pulse Strength Pulse Strength [Apical] Normal Normal Respiratory Rate 16 18 Respiratory Effort / Characteristics Non-Labored Spontaneous Respiratory Depth Normal Normal Respiratory Pattern Blood Pressure Blood Pressure [Right Arm] 103/43 L 122/74 Blood Pressure Mean Blood Pressure Mean [Right Arm] 63 90 Blood Pressure Position Blood Pressure Position [Right Arm] Sitting Pulse Oximetry 97 94 Oxygen Delivery Method Room Air Room Air Home Medications Current Medication List: was personally reviewed by me Laboratory Data Attestation: I reviewed the patient's lab results. Result diagrams: 01/16/19 16:16 01/16/19 17:22 Lab Results 01/16/19 01/16/19 01/16/19 Range/Units 16:16 16:16 16:16 WBC 17.06 H (4.8-10.8) K/uL RBC 4.78 (4.2-5.4) M/uL Hgb 13.6 (12.0-16.0) g/dL Hct 42.3 (37-47) % MCV 88.5 (80-100) fL MCH 28.5 (25-34) pg MCHC 32.2 (32-36) g/dL RDW Std Deviation 51.4 H (36.4-46.3) fL RDW Coeff of Manohar 15.8 H (11.5-14.5) % Plt Count 323 (130-400) K/uL MPV 9.7 (7.4-10.4) fL Immature Gran % (Auto) 1.0 % Neut % (Auto) 81.9 % Lymph % (Auto) 12.5 % Caroline % (Auto) 4.5 % Eos % (Auto) 0.0 % Baso % (Auto) 0.1 % Immature Gran # (Auto) 0.17 H (0.00-0.02) K/uL Neut # (Auto) 13.98 H (1.4-6.5) K/uL Lymph # (Auto) 2.13 (1.2-3.4) K/uL Caroline # (Auto) 0.76 H (0.11-0.59) K/uL Eos # (Auto) 0.00 (0-0.5) K/uL Baso # (Auto) 0.02 (0-0.2) K/uL PT (9.0-12.0) Seconds INR (0.9-1.1) Sodium Cancelled Potassium Cancelled Chloride Cancelled Carbon Dioxide Cancelled Anion Gap Cancelled BUN Cancelled Creatinine Cancelled Est Cr Clr Drug Dosing Cancelled Est GFR ( Amer) Cancelled Est GFR (Non-Af Amer) Cancelled BUN/Creatinine Ratio Cancelled Glucose Cancelled POC Glucose (70-99) Calcium Cancelled Total Bilirubin Cancelled AST Cancelled ALT Cancelled Alkaline Phosphatase Cancelled Troponin I Cancelled Total Protein Cancelled Albumin Cancelled Globulin Cancelled Albumin/Globulin Ratio Cancelled Lipase Cancelled HCG, Qual Negative (Negative) Urine Color Urine Appearance (Clear) Urine pH (4.5-7.5) Ur Specific Thornton (1.000-1.030) Urine Protein (Negative) Urine Glucose (UA) (Negative) Urine Ketones (Negative) Urine Blood (Negative) Urine Nitrite (Negative) Urine Bilirubin (Negative) Urine Urobilinogen (Negative) Ur Leukocyte Esterase (Negative) Salicylates Acetaminophen Ethyl Alcohol mg/dL (0-3) mg/dl 01/16/19 01/16/19 01/16/19 Range/Units 16:16 16:16 17:22 WBC (4.8-10.8) K/uL RBC (4.2-5.4) M/uL Hgb (12.0-16.0) g/dL Hct (37-47) % MCV (80-100) fL MCH (25-34) pg MCHC (32-36) g/dL RDW Std Deviation (36.4-46.3) fL RDW Coeff of Manohar (11.5-14.5) % Plt Count (130-400) K/uL MPV (7.4-10.4) fL Immature Gran % (Auto) % Neut % (Auto) % Lymph % (Auto) % Caroline % (Auto) % Eos % (Auto) % Baso % (Auto) % Immature Gran # (Auto) (0.00-0.02) K/uL Neut # (Auto) (1.4-6.5) K/uL Lymph # (Auto) (1.2-3.4) K/uL Caroline # (Auto) (0.11-0.59) K/uL Eos # (Auto) (0-0.5) K/uL Baso # (Auto) (0-0.2) K/uL PT (9.0-12.0) Seconds INR (0.9-1.1) Sodium 137 Potassium 3.7 Chloride 101 Carbon Dioxide 27 Anion Gap 9.0 BUN 17 Creatinine 1.09 Est Cr Clr Drug Dosing Not Reportable Est GFR ( Amer) 76.2 Est GFR (Non-Af Amer) 65.7 BUN/Creatinine Ratio 15.3 Glucose 100 H POC Glucose (70-99) Calcium 8.5 Total Bilirubin 0.3 AST 34 ALT 45 Alkaline Phosphatase 92 Troponin I < 0.015 Total Protein 6.7 Albumin 3.0 L Globulin 3.7 Albumin/Globulin Ratio 0.8 L Lipase 145 HCG, Qual (Negative) Urine Color Urine Appearance (Clear) Urine pH (4.5-7.5) Ur Specific Thornton (1.000-1.030) Urine Protein (Negative) Urine Glucose (UA) (Negative) Urine Ketones (Negative) Urine Blood (Negative) Urine Nitrite (Negative) Urine Bilirubin (Negative) Urine Urobilinogen (Negative) Ur Leukocyte Esterase (Negative) Salicylates Cancelled Acetaminophen Cancelled Ethyl Alcohol mg/dL < 3.0 (0-3) mg/dl 01/16/19 01/16/19 01/16/19 Range/Units 17:22 18:48 19:00 WBC (4.8-10.8) K/uL RBC (4.2-5.4) M/uL Hgb (12.0-16.0) g/dL Hct (37-47) % MCV (80-100) fL MCH (25-34) pg MCHC (32-36) g/dL RDW Std Deviation (36.4-46.3) fL RDW Coeff of Manohar (11.5-14.5) % Plt Count (130-400) K/uL MPV (7.4-10.4) fL Immature Gran % (Auto) % Neut % (Auto) % Lymph % (Auto) % Caroline % (Auto) % Eos % (Auto) % Baso % (Auto) % Immature Gran # (Auto) (0.00-0.02) K/uL Neut # (Auto) (1.4-6.5) K/uL Lymph # (Auto) (1.2-3.4) K/uL Caroline # (Auto) (0.11-0.59) K/uL Eos # (Auto) (0-0.5) K/uL Baso # (Auto) (0-0.2) K/uL PT 20.7 H (9.0-12.0) Seconds INR 2.1 H (0.9-1.1) Sodium Potassium Chloride Carbon Dioxide Anion Gap BUN Creatinine Est Cr Clr Drug Dosing Est GFR ( Amer) Est GFR (Non-Af Amer) BUN/Creatinine Ratio Glucose POC Glucose (70-99) Calcium Total Bilirubin AST ALT Alkaline Phosphatase Troponin I Total Protein Albumin Globulin Albumin/Globulin Ratio Lipase HCG, Qual (Negative) Urine Color Yellow Urine Appearance Clear (Clear) Urine pH 6.0 (4.5-7.5) Ur Specific Thornton 1.010 (1.000-1.030) Urine Protein Negative (Negative) Urine Glucose (UA) Negative (Negative) Urine Ketones Negative (Negative) Urine Blood Negative (Negative) Urine Nitrite Negative (Negative) Urine Bilirubin Negative (Negative) Urine Urobilinogen Negative (Negative) Ur Leukocyte Esterase Negative (Negative) Salicylates < 1.7 L Acetaminophen < 2 L Ethyl Alcohol mg/dL (0-3) mg/dl 01/16/19 Range/Units 19:16 WBC (4.8-10.8) K/uL RBC (4.2-5.4) M/uL Hgb (12.0-16.0) g/dL Hct (37-47) % MCV (80-100) fL MCH (25-34) pg MCHC (32-36) g/dL RDW Std Deviation (36.4-46.3) fL RDW Coeff of Manohar (11.5-14.5) % Plt Count (130-400) K/uL MPV (7.4-10.4) fL Immature Gran % (Auto) % Neut % (Auto) % Lymph % (Auto) % Caroline % (Auto) % Eos % (Auto) % Baso % (Auto) % Immature Gran # (Auto) (0.00-0.02) K/uL Neut # (Auto) (1.4-6.5) K/uL Lymph # (Auto) (1.2-3.4) K/uL Caroline # (Auto) (0.11-0.59) K/uL Eos # (Auto) (0-0.5) K/uL Baso # (Auto) (0-0.2) K/uL PT (9.0-12.0) Seconds INR (0.9-1.1) Sodium Potassium Chloride Carbon Dioxide Anion Gap BUN Creatinine Est Cr Clr Drug Dosing Est GFR ( Amer) Est GFR (Non-Af Amer) BUN/Creatinine Ratio Glucose POC Glucose 126 H (70-99) Calcium Total Bilirubin AST ALT Alkaline Phosphatase Troponin I Total Protein Albumin Globulin Albumin/Globulin Ratio Lipase HCG, Qual (Negative) Urine Color Urine Appearance (Clear) Urine pH (4.5-7.5) Ur Specific Thornton (1.000-1.030) Urine Protein (Negative) Urine Glucose (UA) (Negative) Urine Ketones (Negative) Urine Blood (Negative) Urine Nitrite (Negative) Urine Bilirubin (Negative) Urine Urobilinogen (Negative) Ur Leukocyte Esterase (Negative) Salicylates Acetaminophen Ethyl Alcohol mg/dL (0-3) mg/dl Administered Medications Sodium Chloride (Nss 1000ml) 1,000 mls @ 125 mls/hr IV .Q8H STA Stop: 01/17/19 03:09 Last Admin: 01/16/19 21:47 Dose: Not Given Documented by: [id number] Ioversol (Optiray 320 125ml) 119 ml IV ONCE PRN PRN Reason: Interaction Checking Stop: 01/20/19 23:03 Last Admin: 01/16/19 23:04 Dose: 119 ml Documented by: [id number] Discontinued Medications Al Hydrox/Mg Hydrox/Simethicone () 1 dose PO ONE ONE Stop: 01/16/19 17:42 Last Admin: 01/16/19 18:13 Dose: 1 dose Documented by: [id number] Sodium Chloride (Nss 1000ml) 1,000 mls @ 999 mls/hr IV .Q1H1M ONE Stop: 01/16/19 20:10 Last Infusion: 01/16/19 20:18 Dose: 0 mls/hr Documented by: [id number] Admin: 01/16/19 19:14 Dose: 999 mls/hr Documented by: [id number] Acetaminophen (Ofirmev) 1,000 mg in 100 mls @ 400 mls/hr IV NOW STA Stop: 01/16/19 20:15 Last Infusion: 01/16/19 21:48 Dose: 0 mls/hr Documented by: [id number] Admin: 01/16/19 20:07 Dose: 400 mls/hr Documented by: [id number] Nitroglycerin (Nitrostat) 0.4 mg SL NOW STA Stop: 01/16/19 18:27 Last Admin: 01/16/19 19:00 Dose: 0.4 mg Documented by: [id number] Imaging Data Radiologist's Impression: Radiology results as stated below per my review and the radiologist's interpretation: XR chest 1V portable HISTORY: 33 years-old Female Chest Pain acute atypical chest pain COMPARISON: Chest radiograph 01/13/2019 TECHNIQUE: Portable AP view of the chest FINDINGS: Cardiomediastinal and hilar silhouettes are within normal limits. Lungs are mildly hypoinflated. No pneumothorax, pleural effusion, focal airspace consolidation or overt pulmonary edema. Mild right hemidiaphragmatic elevation, unchanged. Bones of the chest appear grossly intact. Fusion hardware of the lower cervical spine. IMPRESSION: Hypoinflation without acute process. The above report was generated using voice recognition software. It may contain grammatical, syntax or spelling errors. Electronically signed by: Cody Borges M.D. 01/16/2019 3:17 PM ECG Data Attestation: I personally reviewed and interpreted this ECG as follows: Indication: chest pain Rate (beats per minute): 101 Rhythm: sinus tachycardia Findings: + other (normal QTC and QRS); no PAC, no PVC, no ST depression and no ST elevation Blood Pressure Blood Pressure Findings: Elevated blood pressure Blood Pressure Disposition: Referred to patients primary care provider Discharge Plan Visit Data *Final* Discharge Date/Time: 01/16/19 21:43 Chief Complaint: Chest Pain Stated Complaint: CHEST PAIN,NAUSEA,[facility] ED Provider: Milan Lyons Discharge Problem: Chest pain, Leukocytosis Patient Disposition: Admitted As Inpatient Discharge Instructions Interventions: ED Discharge Assessment Last Done: 01/16/19 21:43 The scribe's documentation has been prepared under my direction and personally reviewed by me in its entirety. I confirm that the note above accurately reflects all work, treatment, procedures, and medical decision making performed by me.
[2019-01-16] MEDS: cefTRIAXone SODIUM 2,000 MG in DEXTROSE 5% 50 ML IV SCH (23:21)
[2019-01-16] MEDS: INSULIN ASPART 100 UNITS/ML 3 ML PEN SC SCH (23:23)
[2019-01-16] MEDS ORDERED: cloZAPine 25 MG TAB PO STA (23:58)
[2019-01-16] MEDS ORDERED: cloZAPine 100 MG TAB PO STA (23:58)
[2019-01-17] MEDS: ALBUT/IPRATROP 3MG/0.5MG NEB 3 ML VIAL NEB SCH ×7 (00:13→22:57)
[2019-01-17 04:12] LABS: Hematocrit (blood only) 34.8 % (37-47); Hemoglobin 10.9 g/dL (12.0-16.0); Mean Corpuscular Hemoglobin 27.4 pg (25-34); Mean Corpuscular Hgb Conc 31.3 g/dL (32-36); Mean Corpuscular Volume 87.4 fL (80-100); Mean Platelet Volume 9.3 fL (7.4-10.4); Platelet Count 303 K/uL (130-400); RDW Standard Deviation 51.8 fL (36.4-46.3); Red Blood Count 3.98 M/uL (4.2-5.4); White Blood Count 11.37 K/uL (4.8-10.8)
[2019-01-17 04:21] LABS: INR 2.3 (0.9-1.1); Prothrombin Time 22.1 Seconds (9.0-12.0)
[2019-01-17 04:57] LABS: Alanine Aminotransferase 39 U/L (12-78); Albumin Globulin Ratio 0.8 (0.9-2); Albumin Level 2.7 gm/dl (3.4-5.0); Alkaline Phosphatase 82 U/L (45-117); Aspartate Aminotransferase 27 U/L (15-37); BUN Creatinine Ratio 15.1 (10-20); Bilirubin,Total 0.1 mg/dl (0.2-1); Blood Urea Nitrogen 14 mg/dl (7-18); Calcium 8.1 mg/dl (8.5-10.1); Carbon Dioxide 28 mmol/L (21-32); Chloride 104 mmol/L (98-107); Creatinine Clr Calc Pharmacy 125.9 ml/min; Est GFR (African American) 97.3; Globulin 3.5 gm/dl (2.5-4.0); Glucose 115 mg/dl (70-99); Potassium 3.9 mmol/L (3.5-5.1); Sodium 138 mmol/L (136-145); Total Protein 6.2 gm/dl (6.4-8.2); Troponin I < 0.015 ng/ml (0-0.045)
[2019-01-17] MEDS: LEVOTHYROXINE SODIUM 137 MCG TABLET PO SCH (05:52)
--- NOTE | 2019-01-17 07:30 | CT Scan Report ---
CHEST CTA for PULMONARY ARTERIES CT DOSE: 1541.76 mGy.cm HISTORY: Mid chest pain. Shortness of breath. TECHNIQUE: Multiaxial CT images of the chest were performed following the intravenous administration of contrast to evaluate the pulmonary arteries. Maximal intensity projection images were also obtaine d. A dose lowering technique was utilized adhering to the principles of ALARA. COMPARISON STUDY: Chest CTA 11/18/2018. FINDINGS: Hepatic steatosis. The visualized spleen is unremarkable. Normal esophagus. No significant mediastinal or hilar lymphadenopathy. The heart is normal in size. Trace anterior pericardial effusio n and trace bilateral pleural effusions. No fractures within the visualized osseous structures. No pn eumothorax. The central airways are patent. No focal lung consolidations to suggest pneumonia. Normal caliber thoracic aorta with no evidence for dissection. No filling defects within the pulmonary nikko martha to suggest pulmonary embolus. IMPRESSION: 1. No evidence for pulmonary embolus. 2. Trace pericardial effusion and trace bilateral pleural effusions. Electronically signed by: Elvis Inman M.D. 01/17/2019 7:28 AM
[2019-01-17] MEDS: PANTOprazole 40 MG TAB PO SCH ×2 (08:55→20:42)
[2019-01-17] MEDS: TOPIRAMATE 100 MG TAB PO SCH ×2 (08:55→20:42)
[2019-01-17] MEDS: DULOXETINE HCL 30 MG CAP PO SCH (08:55)
[2019-01-17] MEDS: FERROUS SULFATE 325 MG TAB PO SCH (08:56)
[2019-01-17] MEDS: GABAPENTIN 800 MG TAB PO SCH ×4 (08:56→20:43)
[2019-01-17] MEDS: FUROSEMIDE 80 MG TAB PO SCH ×2 (08:56→17:04)
[2019-01-17] MEDS: LITHIUM CARBONATE 300 MG TAB PO SCH ×2 (08:56→20:43)
[2019-01-17] MEDS: DULOXETINE HCL 60 MG CAP PO SCH (08:57)
[2019-01-17] MEDS: INSULIN ASPART 100 UNITS/ML 3 ML PEN SC SCH ×4 (08:57→20:41)
[2019-01-17] MEDS: POTASSIUM CHLORIDE 10 MEQ TABCR PO SCH (08:57)
[2019-01-17] MEDS: DOCUSATE SODIUM 100 MG CAP PO SCH ×2 (08:57→20:41)
[2019-01-17] MEDS: ATORVASTATIN 10 MG TAB PO SCH (08:57)
[2019-01-17] MEDS: BACLOFEN 10 MG TAB PO SCH ×2 (08:57→20:43)
[2019-01-17] MEDS: lisinopriL 10 MG TAB PO SCH (08:57)
[2019-01-17] MEDS ORDERED: LACTOBACILLUS ACIDOPHILUS PO SCH (09:00)
[2019-01-17] MEDS ORDERED: LITHIUM CARBONATE 300 MG TAB PO SCH (09:00)
[2019-01-17] MEDS ORDERED: cloZAPine 25 MG TAB PO SCH (09:00)
[2019-01-17] MEDS ORDERED: cloZAPine 100 MG TAB PO SCH (09:00)
[2019-01-17] MEDS: NYSTATIN OINT 15 GM TUBE EXT SCH ×2 (09:12→20:44)
--- NOTE | 2019-01-17 11:15 | Pharmacy Report ---
Pharmacy Glycemic Short Note 2 - Date of Service January 17, 2019 - Glycemic Short BSG Results (Last 24 hours): 01/16/19 01/16/19 01/16/19 16:16 17:22 19:16 Glucose Cancelled 100 H POC Glucose 126 H 01/16/19 01/17/19 01/17/19 22:23 02:27 03:54 Glucose 115 H POC Glucose 157 H 117 H 01/17/19 07:41 Glucose POC Glucose 136 H OUTPATIENT ANTIDIABETIC REGIMEN: * metformin 500 mg PO BID * A1c 5.6% 11/06/18 ASSESSMENT: * 33 yr old T2DM female admitted with chest pain * Excellent outpatient glycemic control managed with metformin * Will hold oral agents for admission and utilize SQ basal bolus insulin regimen which is the recommended regimen for inpatient glycemic control. * No basal insulin has been ordered at this time - will add for fasting > 140 mg/dL * Novolog CF/CR per weight based dosing PLAN FOR INPATIENT GLYCEMIC CONTROL: * Hold outpatient oral diabetes medications * Basal insulin * none * Bolus insulin * NovoLog per scale ACHS or Q6hrs while NPO * Goal Range: Low 110 mg/dL - High 150 mg/dL * Correction Factor: 20 mg/dL/unit * Nutritional / Prandial insulin per carb ratio of 1 unit per 8 grams CHO consumed PLAN FOR DISCHARGE: * A1c of 5.6% is at goal * Continue home regimen of metformin on discharge
--- NOTE | 2019-01-17 13:34 | Hospitalist Progress Note ---
Date of Service January 17, 2019 Assessment & Plan (1) Chest pain: Atypical chest pain Reproducible chest pain Mostly due to costochondritis and Anxiety CTA chest showed no evidence for pulmonary embolus. Troponin x 3 negative EKG showed no ischemic changes Dobutamine stress ECHO done in the last visit showed negative for ischemia Continue pain control with tylenol prn Continue PPI Polyuria Possible related to polydipsia UA negative for UTI WBC trending down Received IV rocephin, will discontinue IV abx Will monitor Major depressive disorder with psychotic features Has been having suicidal thought and voices tell her to cut wrist Continue lithium, clozapine and cymbalta Psych on board Medically clear to transfer to psych unit Pulmonary embolism: Recent bilateral PE diagnosis in October 2018 Continue coumadin with INR 2.3 today Continue monitor PT/INR Follow up with the [facility]ag clinic Diabetes mellitus type 2, controlled A1c of 5.5 in October 2018 Continue insulin sliding scale Continue monitor BS Bilateral lower extremity edema Doppler of B/L LE showed no evidence of DVT Continue Lasix 80mg BID Opiate dependence: History of opiate dependence Use narcotics only when absolutely necessary Hypothyroidism Continue levothyroxine Morbid Obesity BMI 54.5 Counseling on weight lost DVT Px On Coumadin with INR 2.3 CODE STATUS FULL CODE Disposition Medically stable to transfer to mental health unit Subjective Pt was seen and examined Sitting in chair with no distress Pt said that she is having suicide thought She said that she is hearing voice that told her to cut her wrist Pt said that she does not feel safe home because of the hallucination and voices that tell her to cut herself She said that she feels safer in the hospital She said that she would like to be admitted to the mental health unit Denies any chest pain, palpitation, dizziness and SOB Physical Exam Physical Exam: General- No acute distress, obesity Head- atraumatic Eyes- PERRL, EOMI, ENT- oropharynx clear Neck- supple, no JVD Lungs- clear to auscultation Heart- regular rhythm; no murmur Abdomen- normal bowel sounds, soft, nontender Extremities- no calf tenderness, +edema Neuro- alert, oriented x 3; PERRL, EOMI; no facial palsy; no dysarthria Skin- warm & dry Results & Data Vital Signs (Past 12 Hours) Vital Signs Temp Pulse Pulse Pulse Resp BP BP 01/17/19 11:44 36.6 C 91 H 18 104/68 01/17/19 11:09 93 H 20 01/17/19 08:00 36.8 C 99 H 96 H 18 131/79 01/17/19 06:58 81 18 01/17/19 03:07 101 H 20 01/17/19 02:45 36.8 C 98 H 18 111/76 Pulse Ox 01/17/19 11:44 99 01/17/19 11:09 98 01/17/19 08:00 95 01/17/19 06:58 95 01/17/19 03:07 97 01/17/19 02:45 97
--- NOTE | 2019-01-17 14:24 | Psychiatric Consultation ---
Date of Consultation January 17, 2019 Impression / Recommendations Impression Zhanna has a history of very chronic depression and hallucinations. Presently her anxiety appears increased from baseline associated with shortness of breath persisting since pulmonary embolism last month. Additionally she has some active psychosocial stressors likely also contributing to her anxiety. There have been recent issues with clozapine compliance requiring re-titration and she requires weekly CBC with differential for monitoring. She is not presently neutropenic. Considering differential diagnosis for shortness of breath and chest discomfort, must consider possibility of clozapine induced myocarditis however no eosinophilia, no fever, troponins negative, CTA and EKG benign. Her report of psychotic symptoms including persecutory ideation and auditory hallucinations appears near her typical baseline. She does not endorse active suicidal or homicidal ideation. She appears to be well supported with an outpatient psychiatric provider that she likes, Lora Arnold at [facility] in a ddition to her case management director, Elizabeth Stewart. Presently there does not appear to be an indication for acute psychiatric hospitalization and I am not sure that we would be able to offer much different treatment and she is already receiving as an outpatient. I will increase her Clozaril to 175 mg tonight for a total dose of 300 mg today and then tomorrow begin her home dose of 100 mg in the morning and 200 mg at night. We will need to coordinate with her outpatient provider regarding long-acting injectable antipsychotic as it is unclear if she should still be receiving the Risperdal which was last filled in October as per HPI. Diagnosis: MDD, recurrent, severe, with psychosis and anxious distress versus schizoaffective disorder -Increase clozapine as above -continue weekly ANC monitoring -Continue lithium and Cymbalta at home dose -will follow Risk Factors Assessment Male: No : Yes Do You Have Access To A Gun?: No Health Problems: Yes Mental Health Diagnoses: Yes Substance Use Disorders: No Previous Attempt: Yes Previous Psychiatric Hospitalization: Yes Hopelessness: Yes Smoker: No Protective Factors Assessment : No Responsible for Young Children: No Employed: No Good Rapport with Provider: Yes CPT Code 25941 Psych History Identifying Data 33-year-old female with long psychiatric history well-known to the psychiatry service. This is her third psychiatric consultation this month associated with recurring presentations complaining of shortness of breath since recent PE and sepsis. Chief Complaint "I do not feel well". History of Present Illness As above, this is the third psychiatric consultation this month for Zhanna. Last seen by Dr. Iqbal on 01/03/2019 when her clozapine was re-titrated by 25 mg daily following lapse. It appears transportation had been a barrier for necessary lab work however she reports she has been consistently compliant with labs and clozapine since last discharge. Current dose of clozapine reported as 100 mg in the morning and 200 mg at night prescribed by outside provider at the [facility]. Active med list here has her taking only 125 mg of clozapine twice daily. She saw her outside provider just yesterday and was recommended to be evaluated in the ER for shortness of breath. Patient describes shortness of breath like a "thumping on my chest" worse with exertion and believes this started about 1 month ago. She reports adequate sleep. Acknowledges increased psychosocial stress, primarily related to her housing issue as her case management director is actively working on alternative living arrangements as she will be evicted from her [facility] on the last day of January. She acknowledges that this has been stressful and that it may be contributing to increased anxiety. She expresses feelings of hopelessness and helplessness however she denies thoughts of self-harm, denies self injury, and denies thoughts of harm to anyone else. She endorses a good relationship with her outpatient provider and willingness to comply with treatment recommendations. In reviewing med reconciliation report I see that Risperdal Consta was last filled on 11/14/2018 x 2 injections. She is not very certain if she should still be taking that or if it has been converted perhaps to paliperidone however there is no paliperidone Rx apparent on pharmacy reconciliation software. She indicates that she has been taking the 100 mg of clozapine in the morning and 200 mg of clozapine at night at home consistently. She reports good compliance with lithium and Cymbalta and denies recent changes to dose. No lithium level checked during this admission. Last level only 0.4 on 01/01/2019. She endorses auditory hallucinations and delusional preoccupations of specific personalities she believes are out to get her in her family and will make disparaging comments about her throughout the day however she reports these are very chronic and not changed from typical baseline. Past Psychiatric History Previous Psych History: Well documented in chart. Current Psychiatric Diagnosis: Recurrent depression, severe with psychosis. R/o primary thought diso Outpatient Services: [facility] corporate communications manager Elizabeth Stewart Previous Psych Admissions: BERENICE [facility] (11/2015, 02/2016, 08/2018), [facility] 05/2016 - 04/2018 Do You Have Access To A Gun?: No History of Previous Suicide Attempt: Yes (Overdose on gabapentin 2-1/2 years ago) Past Medication Trials: 1. Risperdal - EPS 2. Seroquel 3. Haldol 4. Neurontin 5. Cymbalta 6. Topamax 7. Haldol Decanoate 8. Wellbutrin 9. Klonopin 10.Invega 11.Amantadine 12.Clozaril 13.Onsted 14.Risperdal Consta Allergies Allergy/AdvReac Type Severity Reaction Status Date / Time erythromycin base Allergy Mild Unknown Verified 01/16/19 16:13 cephalexin Allergy Unknown . Verified 01/16/19 16:13 Penicillins Allergy Unknown . Verified 01/16/19 16:13 Sulfa (Sulfonamide Allergy Unknown . Verified 01/16/19 16:13 Antibiotics) Home Medications Home Medications Medication Instructions Recorded Confirmed Type Lactobacillus acidophilus 1 cap PO QAM 05/23/18 01/16/19 History baclofen 5 mg PO BID 05/23/18 01/16/19 History duloxetine 60 mg PO QAM 05/23/18 01/16/19 History ferrous sulfate 325 mg PO QAM 05/23/18 01/16/19 History lisinopril 10 mg PO QAM 05/23/18 01/16/19 History lithium carbonate 150 mg PO QAM 05/23/18 01/16/19 History metformin 500 mg PO BIDM 05/23/18 01/16/19 History polyethylene glycol 3350 17 g PO BID PRN 05/23/18 01/16/19 History atorvastatin [Lipitor] 10 mg PO QAM 08/28/18 01/16/19 History docusate sodium [Colace] 100 mg PO BID 08/28/18 01/16/19 History lithium carbonate 600 mg PO HS 08/28/18 01/16/19 History ondansetron 8 mg PO DIRECTED PRN 08/28/18 01/16/19 History potassium chloride 10 meq PO QAM 08/28/18 01/16/19 History duloxetine 30 mg PO QAM 12/09/18 01/16/19 History levothyroxine 137 mcg PO QAM 12/19/18 01/16/19 History warfarin 7.5 mg PO 3XWK 12/19/18 01/16/19 History gabapentin 800 mg tablet 800 mg PO QID 30 Days #120 tab 12/30/18 01/16/19 Rx risperidone microspheres 37.5 mg/2 37.5 mg IM Q14D 12/30/18 01/16/19 History mL intramuscular syringe topiramate 100 mg tablet 100 mg PO BID 30 Days #60 tab 12/30/18 01/16/19 Rx Myrbetriq 25 mg PO HS 01/01/19 01/16/19 History lithium carbonate 300 mg PO QAM 01/01/19 01/16/19 History warfarin 5 mg PO 4XWK 01/01/19 01/16/19 History clozapine 100 mg PO BID #14 tab 01/07/19 01/16/19 Rx clozapine [Clozaril] 25 mg PO BID #14 tab 01/07/19 01/16/19 Rx furosemide 80 mg PO BID #0 tab 01/07/19 01/16/19 Rx nystatin 1 applic EXT BID 30 Days #1 tube 01/07/19 01/16/19 Rx pantoprazole 40 mg PO BID 30 Days #60 tab 01/07/19 01/16/19 Rx Family History Father -bipolar disorder, completed suicide Personal History Living Arrangements Comments: Living Arrangements: [facility] Employment Status: Disabled Marital Status: Single Beliefs That Will Affect Care: None Beliefs That Will Affect Care: None Patient History Medical History Diabetes mellitus type 2, controlled (Chronic) Constipation (Chronic) Anxiety (Chronic) GERD (gastroesophageal reflux disease) (Chronic) Hypothyroidism (Chronic) Cervicalgia (Chronic) Migraine headache (Chronic) Back pain (Acute) Chronic pain associated with significant psychosocial dysfunction (Chronic) Drug-seeking behavior (Acute) Major depressive disorder with psychotic features (Chronic) Opiate dependence (Chronic) UTI (urinary tract infection) (Acute) Schizo affective schizophrenia Post-concussion headache (Inactive) Pulmonary embolism (Inactive) Surgical History H/O discectomy (Resolved) H/O arthroscopy of left knee (Resolved) Social History Preferred Language: Yakut Communication Ability: Impaired 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 Beliefs That Will Affect Care: None marital status: Single Current Living Situation: Other Current Living Situation Comment: Long Term Other Information That Helps Us Care for You: No Feels Safe at Home: Yes Safety Concerns: Feels Safe At This Time Smoking Status: Never smoker Second Hand Exposure: No ; Hx Alcohol Use: No Hx Substance Use: No Physical Exam Psychiatric: Orientation: cooperative Apperance: + disheveled Eye Contact: good eye contact Motor Behavior: no psychomotor agitation Speech: normal rate/rhythm/volume of speech Affect: + anxious affect (mild) Mood: + depressed mood and + anxious mood Thought Process: + perseveration; thought process not incoherent Thought Content: + preoccupation (somatic), + paranoid, + hopelessness and + self deprecation Suicidal Thoughts: + reports suicidal thoughts, + reports suicidal plan and + reports suicidal intent Homicidal Thoughts: + reports homicidal thoughts, + reports homicidal plan and + reports homicidal intent Hallucinations: + auditory hallucinations Cognition: recent memory grossly intact Insight: + limited insight Judgement: + limited judgement Vital Signs (Past 24 Hours): Last Vital Signs Temp 36.6 C 01/17/19 11:44 Pulse 91 H 01/17/19 11:44 Resp 18 01/17/19 11:44 BP 104/68 01/17/19 11:44 Pulse Ox 99 01/17/19 11:44 Review of Systems Constitutional: + fatigue; no fever and no sweats Respiratory: + problem reported (SOB) Cardiovascular: + dyspnea on exertion Musculoskeletal: + back pain Psychiatric: + anxiety, + paranoia and + auditory hallucinations; no suicidal ideation, no homicidal ideation and no substance abuse Results & Data Laboratory Results Laboratory Results - last 24 hr 01/16/19 01/16/19 01/16/19 16:16 16:16 16:16 WBC 17.06 H RBC 4.78 Hgb 13.6 Hct 42.3 MCV 88.5 MCH 28.5 MCHC 32.2 RDW Std Deviation 51.4 H RDW Coeff of Manohar 15.8 H Plt Count 323 MPV 9.7 Immature Gran % (Auto) 1.0 Neut % (Auto) 81.9 Lymph % (Auto) 12.5 Creek % (Auto) 4.5 Eos % (Auto) 0.0 Baso % (Auto) 0.1 Immature Gran # (Auto) 0.17 H Neut # (Auto) 13.98 H Lymph # (Auto) 2.13 Creek # (Auto) 0.76 H Eos # (Auto) 0.00 Baso # (Auto) 0.02 PT INR Sodium Cancelled Potassium Cancelled Chloride Cancelled Carbon Dioxide Cancelled Anion Gap Cancelled BUN Cancelled Creatinine Cancelled Est Cr Clr Drug Dosing Cancelled Est GFR ( Amer) Cancelled Est GFR (Non-Af Amer) Cancelled BUN/Creatinine Ratio Cancelled Glucose Cancelled POC Glucose Calcium Cancelled Total Bilirubin Cancelled AST Cancelled ALT Cancelled Alkaline Phosphatase Cancelled Troponin I Cancelled Total Protein Cancelled Albumin Cancelled Globulin Cancelled Albumin/Globulin Ratio Cancelled Lipase Cancelled HCG, Qual Negative Specimen Hemolysis Urine Color Urine Appearance Urine pH Ur Specific [place] Urine Protein Urine Glucose (UA) Urine Ketones Urine Blood Urine Nitrite Urine Bilirubin Urine Urobilinogen Ur Leukocyte Esterase Salicylates Acetaminophen Ethyl Alcohol mg/dL 01/16/19 01/16/19 01/16/19 16:16 16:16 17:22 WBC RBC Hgb Hct MCV MCH MCHC RDW Std Deviation RDW Coeff of Manohar Plt Count MPV Immature Gran % (Auto) Neut % (Auto) Lymph % (Auto) Creek % (Auto) Eos % (Auto) Baso % (Auto) Immature Gran # (Auto) Neut # (Auto) Lymph # (Auto) Creek # (Auto) Eos # (Auto) Baso # (Auto) PT INR Sodium 137 Potassium 3.7 Chloride 101 Carbon Dioxide 27 Anion Gap 9.0 BUN 17 Creatinine 1.09 Est Cr Clr Drug Dosing Not Reportable Est GFR ( Amer) 76.2 Est GFR (Non-Af Amer) 65.7 BUN/Creatinine Ratio 15.3 Glucose 100 H POC Glucose Calcium 8.5 Total Bilirubin 0.3 AST 34 ALT 45 Alkaline Phosphatase 92 Troponin I < 0.015 Total Protein 6.7 Albumin 3.0 L Globulin 3.7 Albumin/Globulin Ratio 0.8 L Lipase 145 HCG, Qual Specimen Hemolysis Urine Color Urine Appearance Urine pH Ur Specific [place] Urine Protein Urine Glucose (UA) Urine Ketones Urine Blood Urine Nitrite Urine Bilirubin Urine Urobilinogen Ur Leukocyte Esterase Salicylates Cancelled Acetaminophen Cancelled Ethyl Alcohol mg/dL < 3.0 01/16/19 01/16/19 01/16/19 17:22 18:48 19:00 WBC RBC Hgb Hct MCV MCH MCHC RDW Std Deviation RDW Coeff of Manohar Plt Count MPV Immature Gran % (Auto) Neut % (Auto) Lymph % (Auto) Creek % (Auto) Eos % (Auto) Baso % (Auto) Immature Gran # (Auto) Neut # (Auto) Lymph # (Auto) Creek # (Auto) Eos # (Auto) Baso # (Auto) PT 20.7 H INR 2.1 H Sodium Potassium Chloride Carbon Dioxide Anion Gap BUN Creatinine Est Cr Clr Drug Dosing Est GFR ( Amer) Est GFR (Non-Af Amer) BUN/Creatinine Ratio Glucose POC Glucose Calcium Total Bilirubin AST ALT Alkaline Phosphatase Troponin I Total Protein Albumin Globulin Albumin/Globulin Ratio Lipase HCG, Qual Specimen Hemolysis Urine Color Yellow Urine Appearance Clear Urine pH 6.0 Ur Specific [place] 1.010 Urine Protein Negative Urine Glucose (UA) Negative Urine Ketones Negative Urine Blood Negative Urine Nitrite Negative Urine Bilirubin Negative Urine Urobilinogen Negative Ur Leukocyte Esterase Negative Salicylates < 1.7 L Acetaminophen < 2 L Ethyl Alcohol mg/dL 01/16/19 01/16/19 01/16/19 19:16 22:23 22:32 WBC RBC Hgb Hct MCV MCH MCHC RDW Std Deviation RDW Coeff of Manohar Plt Count MPV Immature Gran % (Auto) Neut % (Auto) Lymph % (Auto) Creek % (Auto) Eos % (Auto) Baso % (Auto) Immature Gran # (Auto) Neut # (Auto) Lymph # (Auto) Creek # (Auto) Eos # (Auto) Baso # (Auto) PT INR Sodium Potassium Chloride Carbon Dioxide Anion Gap BUN Creatinine Est Cr Clr Drug Dosing Est GFR ( Amer) Est GFR (Non-Af Amer) BUN/Creatinine Ratio Glucose POC Glucose 126 H 157 H Calcium Total Bilirubin AST ALT Alkaline Phosphatase Troponin I < 0.015 Total Protein Albumin Globulin Albumin/Globulin Ratio Lipase HCG, Qual Specimen Hemolysis Urine Color Urine Appearance Urine pH Ur Specific [place] Urine Protein Urine Glucose (UA) Urine Ketones Urine Blood Urine Nitrite Urine Bilirubin Urine Urobilinogen Ur Leukocyte Esterase Salicylates Acetaminophen Ethyl Alcohol mg/dL 01/17/19 01/17/19 01/17/19 02:27 03:54 03:54 WBC 11.37 H RBC 3.98 L Hgb 10.9 L Hct 34.8 L MCV 87.4 MCH 27.4 MCHC 31.3 L RDW Std Deviation 51.8 H RDW Coeff of Manohar 16.0 H Plt Count 303 MPV 9.3 Immature Gran % (Auto) Neut % (Auto) Lymph % (Auto) Creek % (Auto) Eos % (Auto) Baso % (Auto) Immature Gran # (Auto) Neut # (Auto) Lymph # (Auto) Creek # (Auto) Eos # (Auto) Baso # (Auto) PT INR Sodium 138 Potassium 3.9 Chloride 104 Carbon Dioxide 28 Anion Gap 6.0 BUN 14 Creatinine 0.89 Est Cr Clr Drug Dosing 125.9 Est GFR ( Amer) 97.3 Est GFR (Non-Af Amer) 84.0 BUN/Creatinine Ratio 15.1 Glucose 115 H POC Glucose 117 H Calcium 8.1 L Total Bilirubin 0.1 L AST 27 ALT 39 Alkaline Phosphatase 82 Troponin I < 0.015 Total Protein 6.2 L Albumin 2.7 L Globulin 3.5 Albumin/Globulin Ratio 0.8 L Lipase HCG, Qual Specimen Hemolysis Urine Color Urine Appearance Urine pH Ur Specific [place] Urine Protein Urine Glucose (UA) Urine Ketones Urine Blood Urine Nitrite Urine Bilirubin Urine Urobilinogen Ur Leukocyte Esterase Salicylates Acetaminophen Ethyl Alcohol mg/dL 01/17/19 01/17/19 01/17/19 03:54 07:41 09:54 WBC RBC Hgb Hct MCV MCH MCHC RDW Std Deviation RDW Coeff of Manohar Plt Count MPV Immature Gran % (Auto) Neut % (Auto) Lymph % (Auto) Creek % (Auto) Eos % (Auto) Baso % (Auto) Immature Gran # (Auto) Neut # (Auto) Lymph # (Auto) Creek # (Auto) Eos # (Auto) Baso # (Auto) PT 22.1 H INR 2.3 H Sodium Potassium Chloride Carbon Dioxide Anion Gap BUN Creatinine Est Cr Clr Drug Dosing Est GFR ( Amer) Est GFR (Non-Af Amer) BUN/Creatinine Ratio Glucose POC Glucose 136 H Calcium Total Bilirubin AST ALT Alkaline Phosphatase Troponin I < 0.015 Total Protein Albumin Globulin Albumin/Globulin Ratio Lipase HCG, Qual Specimen Hemolysis Urine Color Urine Appearance Urine pH Ur Specific [place] Urine Protein Urine Glucose (UA) Urine Ketones Urine Blood Urine Nitrite Urine Bilirubin Urine Urobilinogen Ur Leukocyte Esterase Salicylates Acetaminophen Ethyl Alcohol mg/dL 01/17/19 11:19 WBC RBC Hgb Hct MCV MCH MCHC RDW Std Deviation RDW Coeff of Manohar Plt Count MPV Immature Gran % (Auto) Neut % (Auto) Lymph % (Auto) Creek % (Auto) Eos % (Auto) Baso % (Auto) Immature Gran # (Auto) Neut # (Auto) Lymph # (Auto) Creek # (Auto) Eos # (Auto) Baso # (Auto) PT INR Sodium Potassium Chloride Carbon Dioxide Anion Gap BUN Creatinine Est Cr Clr Drug Dosing Est GFR ( Amer) Est GFR (Non-Af Amer) BUN/Creatinine Ratio Glucose POC Glucose 117 H Calcium Total Bilirubin AST ALT Alkaline Phosphatase Troponin I Total Protein Albumin Globulin Albumin/Globulin Ratio Lipase HCG, Qual Specimen Hemolysis Urine Color Urine Appearance Urine pH Ur Specific [place] Urine Protein Urine Glucose (UA) Urine Ketones Urine Blood Urine Nitrite Urine Bilirubin Urine Urobilinogen Ur Leukocyte Esterase Salicylates Acetaminophen Ethyl Alcohol mg/dL Medications Administered Albuterol (Duoneb) 3 ml NEB Q4R LINNEA Stop: 02/15/19 22:59 Last Admin: 01/17/19 11:08 Dose: 3 ml Documented by: [id number] Admin: 01/17/19 06:58 Dose: 3 ml Documented by: [id number] Admin: 01/17/19 03:06 Dose: 3 ml Documented by: [id number] Admin: 01/17/19 00:13 Dose: 3 ml Documented by: [id number] Atorvastatin Calcium (Lipitor) 10 mg PO QAM LINNEA Stop: 02/16/19 08:59 Last Admin: 01/17/19 08:57 Dose: 10 mg Documented by: [id number] Baclofen (Lioresal) 5 mg PO BID LINNEA Stop: 02/16/19 08:59 Last Admin: 01/17/19 08:57 Dose: 5 mg Documented by: [id number] Clozapine (Clozaril) 25 mg PO BID LINNEA Stop: 02/16/19 08:59 Last Admin: 01/17/19 08:55 Dose: 25 mg Documented by: [id number] Clozapine (Clozapine) 100 mg PO BID LINNEA Stop: 02/16/19 08:59 Last Admin: 01/17/19 08:55 Dose: 100 mg Documented by: [id number] Docusate Sodium (Colace) 100 mg PO BID LINNEA Stop: 02/16/19 08:59 Last Admin: 01/17/19 08:57 Dose: 100 mg Documented by: [id number] Duloxetine HCl (Cymbalta) 30 mg PO QAM [facility] Stop: 02/16/19 08:59 Last Admin: 01/17/19 08:55 Dose: 30 mg Documented by: [id number] Duloxetine HCl (Cymbalta) 60 mg PO QAM [facility] Stop: 02/16/19 08:59 Last Admin: 01/17/19 08:57 Dose: 60 mg Documented by: [id number] Ferrous Sulfate (Feosol) 325 mg PO QAM LINNEA Stop: 02/16/19 08:59 Last Admin: 01/17/19 08:56 Dose: 325 mg Documented by: [id number] Furosemide (Lasix) 80 mg PO BID17 [facility] Stop: 02/16/19 08:59 Last Admin: 01/17/19 08:56 Dose: 80 mg Documented by: [id number] Gabapentin (Neurontin) 800 mg PO QID [facility] Stop: 02/16/19 08:59 Last Admin: 01/17/19 12:10 Dose: 800 mg Documented by: [id number] Admin: 01/17/19 08:56 Dose: 800 mg Documented by: [id number] Ceftriaxone Sodium 2,000 mg/ (Dextrose) 70 mls @ 100 mls/hr IV Q24H [facility] Stop: 01/23/19 22:59 Last Infusion: 01/17/19 00:22 Dose: 0 mls/hr Documented by: [id number] Admin: 01/16/19 23:21 Dose: 100 mls/hr Documented by: [id number] Insulin Aspart (Novolog Flexpen) 0 units SC ACHS [facility] Stop: 02/15/19 22:59 Last Admin: 01/17/19 12:10 Dose: 10 units Documented by: [id number] Cosigned by: [id number] Admin: 01/17/19 08:57 Dose: 12 units Documented by: [id number] Cosigned by: [id number] Admin: 01/16/19 23:23 Dose: 5 units Documented by: [id number] Cosigned by: [id number] Ioversol (Optiray 320 125ml) 119 ml IV ONCE PRN PRN Reason: Interaction Checking Stop: 01/20/19 23:03 Last Admin: 01/16/19 23:04 Dose: 119 ml Documented by: [id number] Levothyroxine Sodium (Levothyroxine Sodium) 137 mcg PO DAILYBB [facility] Stop: 02/16/19 06:29 Last Admin: 01/17/19 05:52 Dose: 137 mcg Documented by: [id number] Lisinopril (Zestril) 10 mg PO QAM [facility] Stop: 02/16/19 08:59 Last Admin: 01/17/19 08:57 Dose: 10 mg Documented by: [id number] Onsted Carbonate (Onsted Carbonate) 450 mg PO QAM [facility] Stop: 02/16/19 08:59 Last Admin: 01/17/19 08:56 Dose: 450 mg Documented by: [id number] Miscellaneous (Order Awaiting Action) 1 ea N/A QS [facility]NE[facility] Stop: 02/15/19 22:59 Last Admin: 01/17/19 08:40 Dose: Not Given Documented by: [id number] Admin: 01/17/19 00:31 Dose: Not Given Documented by: [id number] Admin: 01/17/19 00:22 Dose: Not Given Documented by: [id number] Nystatin (Mycostatin) 1 appln EXT BID LINNEA Stop: 02/16/19 08:59 Last Admin: 01/17/19 09:12 Dose: 1 appln Documented by: [id number] Pantoprazole Sodium (Protonix) 40 mg PO BID [facility]NE[facility] Stop: 02/16/19 08:59 Last Admin: 01/17/19 08:55 Dose: 40 mg Documented by: [id number] Potassium Chloride (Klor-Con M10) 10 meq PO QAM [facility] Stop: 02/16/19 08:59 Last Admin: 01/17/19 08:57 Dose: 10 meq Documented by: [id number] Topiramate (Topamax) 100 mg PO BID [facility]NE[facility] Stop: 02/16/19 08:59 Last Admin: 01/17/19 08:55 Dose: 100 mg Documented by: [id number]
[2019-01-17] MEDS ORDERED: cloZAPine 25 MG TAB PO ONE (15:00)
[2019-01-17] MEDS ORDERED: WARFARIN SOD 5 MG TAB PO SCH (16:00)
[2019-01-17] MEDS: MIRABEGRON ER 25 MG TAB PO SCH (20:44)
[2019-01-17] MEDS: cefTRIAXone SODIUM 2,000 MG in DEXTROSE 5% 50 ML IV SCH (23:32)
[2019-01-18] MEDS: ALBUT/IPRATROP 3MG/0.5MG NEB 3 ML VIAL NEB SCH ×6 (03:36→22:51)
[2019-01-18] MEDS: LEVOTHYROXINE SODIUM 137 MCG TABLET PO SCH (05:48)
[2019-01-18 07:02] LABS: Hematocrit (blood only) 37.2 % (37-47); Hemoglobin 11.3 g/dL (12.0-16.0); Mean Corpuscular Hemoglobin 26.9 pg (25-34); Mean Corpuscular Hgb Conc 30.4 g/dL (32-36); Mean Corpuscular Volume 88.6 fL (80-100); Mean Platelet Volume 9.2 fL (7.4-10.4); Platelet Count 307 K/uL (130-400); RDW Coefficient of Variation 16.2 % (11.5-14.5); RDW Standard Deviation 52.1 fL (36.4-46.3); White Blood Count 12.52 K/uL (4.8-10.8)
[2019-01-18] MEDS: POTASSIUM CHLORIDE 10 MEQ TABCR PO SCH (08:21)
[2019-01-18] MEDS: DULOXETINE HCL 30 MG CAP PO SCH (08:21)
[2019-01-18] MEDS: lisinopriL 10 MG TAB PO SCH (08:21)
[2019-01-18] MEDS: cloZAPine 100 MG TAB PO SCH (08:21)
[2019-01-18] MEDS: PANTOprazole 40 MG TAB PO SCH ×2 (08:22→20:33)
[2019-01-18] MEDS: FUROSEMIDE 80 MG TAB PO SCH ×2 (08:22→17:01)
[2019-01-18] MEDS: DOCUSATE SODIUM 100 MG CAP PO SCH ×2 (08:22→20:33)
[2019-01-18] MEDS: ATORVASTATIN 10 MG TAB PO SCH (08:22)
[2019-01-18] MEDS: GABAPENTIN 800 MG TAB PO SCH ×4 (08:22→20:33)
[2019-01-18] MEDS: DULOXETINE HCL 60 MG CAP PO SCH (08:22)
[2019-01-18] MEDS: FERROUS SULFATE 325 MG TAB PO SCH (08:22)
[2019-01-18] MEDS: NYSTATIN OINT 15 GM TUBE EXT SCH ×2 (08:23→20:35)
[2019-01-18] MEDS: BACLOFEN 10 MG TAB PO SCH ×2 (08:23→20:32)
[2019-01-18] MEDS: TOPIRAMATE 100 MG TAB PO SCH ×2 (08:23→20:34)
[2019-01-18] MEDS: LITHIUM CARBONATE 300 MG TAB PO SCH ×2 (08:23→20:34)
[2019-01-18] MEDS: INSULIN ASPART 100 UNITS/ML 3 ML PEN SC SCH ×4 (08:24→20:31)
[2019-01-18] MEDS: INSULIN GLARGINE SOLOSTAR 100 UNITS/ML 3 ML PEN SC SCH ×2 (08:57→20:31)
--- NOTE | 2019-01-18 11:41 | Pharmacy Report ---
Pharmacy Glycemic Short Note 2 - Date of Service January 18, 2019 - Glycemic Short BSG Results (Last 24 hours): 01/17/19 01/17/19 01/17/19 11:19 16:27 19:33 POC Glucose 117 H 163 H 110 H 01/18/19 01/18/19 07:41 11:13 POC Glucose 174 H 95 OUTPATIENT ANTIDIABETIC REGIMEN: * metformin 500 mg PO BID * A1c 5.6% 11/06/18 ASSESSMENT: 01/18: * Zhanna received 36 units of Novolog yesterday * Fasting BSG of 174 mg/dL is above goal, therefore basal insulin will be added * Post prandial BSGs are mostly at/near goal. I will slightly loosen Novolog parameters due to lunchtime BSG of 95 mg/dL. 01/17: * 33 yr old T2DM female admitted with chest pain * Excellent outpatient glycemic control managed with metformin * Will hold oral agents for admission and utilize SQ basal bolus insulin regimen which is the recommended regimen for inpatient glycemic control. * No basal insulin has been ordered at this time - will add for fasting > 140 mg/dL * Novolog CF/CR per weight based dosing PLAN FOR INPATIENT GLYCEMIC CONTROL: * Hold outpatient oral diabetes medications * Basal insulin * Start Lantus 8 units SQ BID * Bolus insulin - loosen * NovoLog per scale ACHS or Q6hrs while NPO * Goal Range: Low 110 mg/dL - High 150 mg/dL * Correction Factor: 25 mg/dL/unit * Nutritional / Prandial insulin per carb ratio of 1 unit per 9 grams CHO consumed PLAN FOR DISCHARGE: * A1c of 5.6% is at goal * Continue home regimen of metformin on discharge
[2019-01-18] MEDS: WARFARIN SOD 5 MG TAB PO SCH (17:02)
--- NOTE | 2019-01-18 17:31 | Hospitalist Progress Note ---
Date of Service January 18, 2019 Assessment & Plan (1) Chest pain: Atypical chest pain Reproducible chest pain Mostly due to costochondritis and Anxiety CTA chest showed no evidence for pulmonary embolus. Troponin x 3 negative EKG showed no ischemic changes Dobutamine stress ECHO done in the last visit showed negative for ischemia Continue pain control with tylenol prn Continue PPI resolved Polyuria Possible related to polydipsia UA negative for UTI WBC trending down Received IV rocephin, will discontinue IV abx Will monitor Major depressive disorder with psychotic features Has been having suicidal thought and voices tell her to cut wrist Continue lithium, clozapine and cymbalta Psych on board No indication for inpatient psych treatment as per psych Continue follow with outpatient psychiatric provider Lora Arnold at [facility] Pulmonary embolism: Recent bilateral PE diagnosis in October 2018 Continue coumadin with INR 2.3 Continue monitor PT/INR [facility] Diabetes mellitus type 2, controlled A1c of 5.5 in October 2018 Continue insulin sliding scale Continue monitor BS Bilateral lower extremity edema Doppler of B/L LE showed no evidence of DVT Continue Lasix 80mg BID Opiate dependence: History of opiate dependence Use narcotics only when absolutely necessary Hypothyroidism Continue levothyroxine Morbid Obesity BMI 54.5 Counseling on weight lost DVT Px On Coumadin with INR 2.3 CODE STATUS FULL CODE Disposition Discharge to Home group at [facility] today Subjective Pt was seen and examined Sitting in chair with no distress eating Pt said that she continues to hear voices She said that she would like to stay to the mental health unit She saw psych yesterday and does not think that she need inpatient psych therapy She wants to speak to psych again today before discharging to the [place] [facility] She said that she does not have any access with weapons at the [place] [facility] Denies any chest pain, palpitation, dizziness and SOB Physical Exam Physical Exam: General- No acute distress, obesity Head- atraumatic Eyes- PERRL, EOMI, ENT- oropharynx clear Neck- supple, no JVD Lungs- clear to auscultation Heart- regular rhythm; no murmur Abdomen- normal bowel sounds, soft, nontender Extremities- no calf tenderness, +edema Neuro- alert, oriented x 3; PERRL, EOMI; no facial palsy; no dysarthria Skin- warm & dry Results & Data Vital Signs (Past 12 Hours) Vital Signs Temp Pulse Pulse Resp BP Pulse Ox 01/18/19 17:05 116/57 L 01/18/19 16:04 96/58 L 01/18/19 15:27 36.5 C 104 H 20 96 01/18/19 15:23 103 H 16 97 01/18/19 15:08 104 H 01/18/19 11:11 78 20 97 01/18/19 11:10 36.8 C 109 H 16 139/81 99 01/18/19 08:00 97 H 01/18/19 07:29 36.7 C 93 H 24 116/76 96 01/18/19 07:01 18 95
[2019-01-18] MEDS: MIRABEGRON ER 25 MG TAB PO SCH (20:32)
[2019-01-18] MEDS ORDERED: cloZAPine 100 MG TAB PO SCH (21:00)
[2019-01-19] MEDS: ALBUT/IPRATROP 3MG/0.5MG NEB 3 ML VIAL NEB SCH ×3 (02:58→11:06)
[2019-01-19] MEDS: LEVOTHYROXINE SODIUM 137 MCG TABLET PO SCH (05:14)
[2019-01-19] MEDS: lisinopriL 10 MG TAB PO SCH (08:15)
[2019-01-19] MEDS: POTASSIUM CHLORIDE 10 MEQ TABCR PO SCH (08:15)
[2019-01-19] MEDS: LITHIUM CARBONATE 300 MG TAB PO SCH (08:15)
[2019-01-19] MEDS: TOPIRAMATE 100 MG TAB PO SCH (08:16)
[2019-01-19] MEDS: FERROUS SULFATE 325 MG TAB PO SCH (08:16)
[2019-01-19] MEDS: DULOXETINE HCL 60 MG CAP PO SCH (08:16)
[2019-01-19] MEDS: cloZAPine 100 MG TAB PO SCH (08:16)
[2019-01-19] MEDS: FUROSEMIDE 80 MG TAB PO SCH ×2 (08:17→17:18)
[2019-01-19] MEDS: GABAPENTIN 800 MG TAB PO SCH ×3 (08:17→17:18)
[2019-01-19] MEDS: PANTOprazole 40 MG TAB PO SCH (08:17)
[2019-01-19] MEDS: BACLOFEN 10 MG TAB PO SCH (08:17)
[2019-01-19] MEDS: DULOXETINE HCL 30 MG CAP PO SCH (08:18)
[2019-01-19] MEDS: DOCUSATE SODIUM 100 MG CAP PO SCH (08:18)
[2019-01-19] MEDS: ATORVASTATIN 10 MG TAB PO SCH (08:18)
[2019-01-19] MEDS: NYSTATIN OINT 15 GM TUBE EXT SCH (08:18)
[2019-01-19] MEDS: INSULIN ASPART 100 UNITS/ML 3 ML PEN SC SCH ×3 (08:20→17:02)
--- NOTE | 2019-01-19 10:57 | Pharmacy Report ---
Pharmacy Glycemic Short Note 2 - Date of Service January 19, 2019 - Glycemic Short BSG Results (Last 24 hours): 01/18/19 01/18/19 01/18/19 11:13 16:32 19:42 POC Glucose 95 108 H 121 H 01/19/19 07:32 POC Glucose 106 H OUTPATIENT ANTIDIABETIC REGIMEN: * metformin 500 mg PO BID * A1c 5.6% 11/06/18 ASSESSMENT: 01/19: * Patient received 46 units of insulin yesterday (16 of which were basal) * Fasting BSG this morning of 106 mg/dL (down from 174 mg/dL yesterday morning) - will adjust Lantus dose today * BSGs ranging 95-121 over past 24 hours 01/17: * 33 yr old T2DM female admitted with chest pain * Excellent outpatient glycemic control managed with metformin * Will hold oral agents for admission and utilize SQ basal bolus insulin regimen which is the recommended regimen for inpatient glycemic control. * No basal insulin has been ordered at this time - will add for fasting > 140 mg/dL * Novolog CF/CR per weight based dosing PLAN FOR INPATIENT GLYCEMIC CONTROL: * Hold outpatient oral diabetes medications * Basal insulin * Will decrease Lantus to 8 units once daily at bedtime based on significant reduction in fasting BSG from yesterday with 8 units BID * Bolus insulin - continue current parameters * NovoLog per scale ACHS or Q6hrs while NPO * Goal Range: Low 110 mg/dL - High 150 mg/dL * Correction Factor: 25 mg/dL/unit * Nutritional / Prandial insulin per carb ratio of 1 unit per 9 grams CHO consumed PLAN FOR DISCHARGE: * A1c of 5.6% is at goal * Continue home regimen of metformin on discharge
[2019-01-19 15:43] VITALS: TEMP 97.7; O2SAT 95
--- NOTE | 2019-01-19 16:38 | Hospitalist Progress Note ---
Date of Service January 19, 2019 Assessment & Plan (1) Chest pain: Atypical chest pain Reproducible chest pain Mostly due to costochondritis and Anxiety CTA chest showed no evidence for pulmonary embolus. Troponin x 3 negative EKG showed no ischemic changes Dobutamine stress ECHO done in the last visit showed negative for ischemia Continue pain control with tylenol prn Continue PPI resolved Polyuria Possible related to polydipsia UA negative for UTI WBC trending down IV Rocephin discontinued stable Tachycardia Secondary with anxiety Will add on a low dose of propranolol Follow up with your PCP as an outpatient Major depressive disorder with psychotic features Anxiety Has been having suicidal thought and voices tell her to cut wrist Continue lithium, clozapine and cymbalta Psych on board No indication for inpatient psych treatment as per psych Continue follow with outpatient psychiatric provider Lora Arnold at [place] Pulmonary embolism: Recent bilateral PE diagnosis in October 2018 Continue coumadin with INR 2.3 Continue monitor PT/INR [facility] Diabetes mellitus type 2, controlled A1c of 5.5 in October 2018 Continue insulin sliding scale Continue monitor BS Bilateral lower extremity edema Doppler of B/L LE showed no evidence of DVT Continue Lasix 80mg BID Opiate dependence: History of opiate dependence Use narcotics only when absolutely necessary Hypothyroidism Continue levothyroxine Morbid Obesity BMI 54.5 Counseling on weight lost DVT Px On Coumadin with INR 2.3 CODE STATUS FULL CODE Disposition Discharge to Home group at [place] today Follow up with the primary care provider Dr. Stafford on 01/21 @ 9:20 AM Subjective Pt was seen and examined Lying in bed with no distress Pt is very anxious today because she is going to discharge to the halfway She said that she does not feel safe at the halfway she wants to stay in the hospital at the mental health unit She said that there is one caseworker at the halfway that is always hard on him I called the psych liaison to come to talk to her again today as per psych team patient has all the support at the halfway and does not need inpatient psych I discussed with him for possible to go to another facility for treatment She said that she does not want to go to any other facility for psych treatment Physical Exam Physical Exam: General- No acute distress, obesity Head- atraumatic Eyes- PERRL, EOMI, ENT- oropharynx clear Neck- supple, no JVD Lungs- clear to auscultation Heart- regular rhythm; no murmur Abdomen- normal bowel sounds, soft, nontender Extremities- no calf tenderness, +edema Neuro- alert, oriented x 3; PERRL, EOMI; no facial palsy; no dysarthria Skin- warm & dry Results & Data Vital Signs (Past 12 Hours) Vital Signs Temp Pulse Pulse Resp BP Pulse Ox 01/19/19 16:00 117 H 01/19/19 15:38 36.5 C 110 H 20 109/61 95 01/19/19 11:06 115 H 18 98 01/19/19 10:55 36.9 C 111 H 16 114/82 100 01/19/19 10:18 93 H 01/19/19 09:12 36.8 C 102 H 14 104/72 98 01/19/19 07:00 93 H 16 97
[2019-01-19] MEDS: WARFARIN SOD 5 MG TAB PO SCH (17:17)
[2019-01-19 17:47] VITALS: BP 97/62; PULSE 81
[2019-01-19] MEDS ORDERED: INSULIN GLARGINE SOLOSTAR 100 UNITS/ML 3 ML PEN SC SCH (21:00)
--- NOTE | 2019-01-20 08:56 | Discharge Summary ---
Date of Service December 21, 2018 Admission HPI Per Admitting Provider As above, this is the third psychiatric consultation this month for Zhanna. Last seen by Dr. Iqbal on 01/03/2019 when her clozapine was re-titrated by 25 mg daily following lapse. It appears transportation had been a barrier for necessary lab work however she reports she has been consistently compliant with labs and clozapine since last discharge. Current dose of clozapine reported as 100 mg in the morning and 200 mg at night prescribed by outside provider at the [facility]. Active med list here has her taking only 125 mg of clozapine twice daily. She saw her outside provider just yesterday and was recommended to be evaluated in the ER for shortness of breath. Patient describes shortness of breath like a "thumping on my chest" worse with exertion and believes this started about 1 month ago. She reports adequate sleep. Acknowledges increased psychosocial stress, primarily related to her housing issue as her protective services case worker is actively working on alternative living arrangements as she will be evicted from her [facility] on the last day of January. She acknowledges that this has been stressful and that it may be contributing to increased anxiety. She expresses feelings of hopelessness and helplessness however she denies thoughts of self-harm, denies self injury, and denies thoughts of harm to anyone else. She endorses a good relationship with her outpatient provider and willingness to comply with treatm ent recommendations. In reviewing med reconciliation report I see that Risperdal Consta was last filled on 11/14/2018 x 2 injections. She is not very certain if she should still be taking that or if it has been converted perhaps to paliperidone however there is no paliperidone Rx apparent on pharmacy reconciliation software. She indicates that she has been taking the 100 mg of clozapine in the morning and 200 mg of clozapine at night at home consistently. She reports good compliance with lithium and Cymbalta and denies recent changes to dose. No lithium level checked during this admission. Last level only 0.4 on 01/01/2019. She endorses auditory hallucinations and delusional preoccupations of specific personalities she believes are out to get her in her family and will make disparaging comments about her throughout the day however she reports these are very chronic and not changed from typical baseline. Admission Exam Per Admitting Provider Gen-AAO x 3, NAD, Afebrile, obese Head-NCAT, EOMI, PERRLA, Anicteric Sclera, No Posterior Pharyngeal Erythema Neck-Supple, No JVD, No Thyromegaly, No Masses, No LAD, No Bruits Lungs-Clear to Auscultation Bilaterally, No Rales, No Rhonchi, No Wheezing, No Crepitus Chest-No S4, +S1, +S2, No S3, No Murmurs, No Rubs, No Gallops, No Ectopy Abdomen-Soft, Bowel Sounds Present, Non Tender, Non Distended, No Hepatomegaly, No Splenomegaly, No Palpable Masses, No Rebound, No Rigidity, No Guarding Musculoskeletal-Full Range of Motion Bilaterally, No CVAT Extremities-No Cyanosis, No Clubbing, No Edema Nuero-Cranial Nerves II-XII grossly intact, Motor WNL, DTRs WNL, Strength WNL, Non Focal Psych-Anxious Principal Diagnosis Chest pain Polyuria Tachycardia Major depressive disorder with psychotic features Anxiety Pulmonary Embolism Bilateral lower extremity edema Opiate dependence Hypothyroidism Dyslipidemia Discharge Exam General- No acute distress, obesity Head- atraumatic Eyes- PERRL, EOMI, ENT- oropharynx clear Neck- supple, no JVD Lungs- clear to auscultation Heart- regular rhythm; no murmur Abdomen- normal bowel sounds, soft, nontender Extremities- no calf tenderness, +edema Neuro- alert, oriented x 3; PERRL, EOMI; no facial palsy; no dysarthria Skin- warm & dry Discharge Data Allergies Allergy/AdvReac Type Severity Reaction Status Date / Time erythromycin base Allergy Mild Unknown Verified 01/16/19 16:13 cephalexin Allergy Unknown . Verified 01/16/19 16:13 Penicillins Allergy Unknown . Verified 01/16/19 16:13 Sulfa (Sulfonamide Allergy Unknown . Verified 01/16/19 16:13 Antibiotics) Consultations 01/16/19 21:35 ED Decision to Admit Stat 01/16/19 22:05 Consult Psychiatry Routine Ordered Studies 01/16/19 22:05 CT angio chest PE protocol Routine CHEST CTA for PULMONARY ARTERIES CT DOSE: 1541.76 mGy.cm HISTORY: Mid chest pain. Shortness of breath. TECHNIQUE: Multiaxial CT images of the chest were performed following the intravenous administration of contrast to evaluate the pulmonary arteries. Maximal intensity projection images were also obtained. A dose lowering technique was utilized adhering to the principles of ALARA. COMPARISON STUDY: Chest CTA 11/18/2018. FINDINGS: Hepatic steatosis. The visualized spleen is unremarkable. Normal esophagus. No significant mediastinal or hilar lymphadenopathy. The heart is normal in size. Trace anterior pericardial effusion and trace bilateral pleural effusions. No fractures within the visualized osseous structures. No pneumothorax. The central airways are patent. No focal lung consolidations to suggest pneumonia. Normal caliber thoracic aorta with no evidence for dissection. No filling defects within the pulmonary arteries to suggest pulmonary embolus. IMPRESSION: 1. No evidence for pulmonary embolus. 2. Trace pericardial effusion and trace bilateral pleural effusions. Electronically signed by: Elvis Inman M.D. 01/17/2019 7:28 AM Dictated: 01/17/19723 Transcribed: 01/17/19723 XR chest 1V portable HISTORY: 33 years-old Female Chest Pain acute atypical chest pain COMPARISON: Chest radiograph 01/13/2019 TECHNIQUE: Portable AP view of the chest FINDINGS: Cardiomediastinal and hilar silhouettes are within normal limits. Lungs are mildly hypoinflated. No pneumothorax, pleural effusion, focal airspace consolidation or overt pulmonary edema. Mild right hemidiaphragmatic elevation, unchanged. Bones of the chest appear grossly intact. Fusion hardware of the lower cervical spine. IMPRESSION: Hypoinflation without acute process. The above report was generated using voice recognition software. It may contain grammatical, syntax or spelling errors. Electronically signed by: Cody Borges M.D. 01/16/2019 3:17 PM Dictated: 01/16/19 1516 Transcribed: 01/16/19 1516 Hospital Course (1) Chest pain: Atypical chest pain Reproducible chest pain Mostly due to costochondritis and Anxiety CTA chest showed no evidence for pulmonary embolus. Troponin x 3 negative EKG showed no ischemic changes Dobutamine stress ECHO done in the last visit showed negative for ischemia Continue pain control with tylenol prn Continue PPI resolved Polyuria Possible related to polydipsia UA negative for UTI WBC trending down IV Rocephin discontinued stable Tachycardia Secondary with anxiety Will add on a low dose of propranolol Follow up with your PCP as an outpatient Major depressive disorder with psychotic features Anxiety Has been having suicidal thought and voices tell her to cut wrist Continue lithium, clozapine and cymbalta Psych on board No indication for inpatient psych treatment as per psych Continue follow with outpatient psychiatric provider Lora Arnold at [place] Pulmonary embolism: Recent bilateral PE diagnosis in October 2018 Continue coumadin with INR 2.3 Continue monitor PT/INR [facility] Diabetes mellitus type 2, controlled A1c of 5.5 in October 2018 Continue insulin sliding scale Continue monitor BS Bilateral lower extremity edema Doppler of B/L LE showed no evidence of DVT Continue Lasix 80mg BID Opiate dependence: History of opiate dependence Use narcotics only when absolutely necessary Hypothyroidism Continue levothyroxine Morbid Obesity BMI 54.5 Counseling on weight lost DVT Px On Coumadin with INR 2.3 CODE STATUS FULL CODE Disposition Discharge to Home group at [place] today Follow up with the primary care provider Dr. Stafford on 01/21 @ 9:20 AM Total Time Total Time Spent Total Time Spent (In Minutes): 35 minutes Total Time Includes: Examination of the Patient, Discharge Planning, Medication Reconciliation, Communication With Other Providers and Other Discharge Plan Discharge Items Patient Disposition: Personal Long Term Reason For Visit: CP Discharge Diagnosis: Chest pain Polyuria Tachycardia Major depressive disorder with psychotic features Anxiety Pulmonary Embolism Bilateral lower extremity edema Opiate dependence Hypothyroidism Dyslipidemia Activity: Resume your previous activity Activity Comment: As tolerated Non-emergency contact: Primary Care Provider and Psychiatrist Call non-emergency contact if: you have any medication questions Follow-up/Referrals: [facility] [Outside] (follow up medication appointment January 29 at 11am) Fernando Stafford DO [Primary Care Provider] - Diet: Carb Consistent or DM2 Addtl Attending Provider Instructions: Follow up with the primary care provider Dr. Stafford on 01/21 @ 9:20 AM Follow up with your psychiatrist provider Lora Arnold at [place] Follow up with the coumadin clinic Monitor your PT/INR Check CBC weekly to monitor ANC Monitor closely for any signs of suicidal Counseling on weight lost Keep legs elevate while sitting for the lower extremities swelling Fall precaution Continue Clozapine 100mg in the morning and 200mg at bedtime Pending Studies at Discharge: No Stand-Alone Forms: Call Back Authorization, [facility] Skilled Items Lines: None Urinary Catheter: No Medications and DC Order Prescriptions: New propranolol 10 mg tablet 10 mg PO DAILY Qty: 30 RF: 0 Continued Risperdal Consta 37.5 mg/2 mL syringe 37.5 mg IM Q14D RF: 0 gabapentin 800 mg tablet 800 mg PO QID 30 Days Qty: 120 RF: 5 topiramate 100 mg tablet 100 mg PO BID 30 Days Qty: 60 RF: 5 atorvastatin [Lipitor] 10 mg tablet 10 mg PO QAM RF: 0 potassium chloride 10 mEq tablet extended release 10 meq PO QAM RF: 0 ondansetron 8 mg tablet,disintegrating 8 mg PO DIRECTED PRN (Reason: Nausea) RF: 0 lithium carbonate 600 mg capsule 600 mg PO HS RF: 0 docusate sodium [Colace] 100 mg Capsule 100 mg PO BID RF: 0 duloxetine 30 mg capsule,delayed release(DR/EC) 30 mg PO QAM RF: 0 metformin 500 mg tablet 500 mg PO BIDM RF: 0 lithium carbonate 150 mg capsule 150 mg PO QAM RF: 0 baclofen 10 mg tablet 5 mg PO BID RF: 0 lisinopril 10 mg tablet 10 mg PO QAM RF: 0 polyethylene glycol 3350 17 gram/dose powder 17 g PO BID PRN (Reason: Constipation) RF: 0 ferrous sulfate 325 mg (65 mg iron) Tablet,Delayed Release (Dr/Ec) 325 mg PO QAM RF: 0 duloxetine 60 mg capsule,delayed release(DR/EC) 60 mg PO QAM RF: 0 Lactobacillus acidophilus Capsule 1 cap PO QAM RF: 0 levothyroxine 137 mcg tablet 137 mcg PO QAM RF: 0 warfarin 5 mg Tablet 7.5 mg PO 3XWK RF: 0 lithium carbonate 300 mg capsule 300 mg PO QAM RF: 0 warfarin 5 mg tablet 5 mg PO 4XWK RF: 0 Myrbetriq 25 mg tablet extended release 24 hr 25 mg PO HS RF: 0 clozapine [Clozaril] 25 mg Tablet 25 mg PO BID Qty: 14 RF: 0 clozapine 100 mg tablet 100 mg PO BID Qty: 14 RF: 0 nystatin 100,000 unit/gram Ointment 1 applic EXT BID 30 Days Qty: 1 RF: 0 pantoprazole 40 mg Tablet,Delayed Release (Dr/Ec) 40 mg PO BID 30 Days Qty: 60 RF: 0 furosemide 80 mg tablet 80 mg PO BID Qty: 0 RF: 0 Discharge Orders: Discharge Order (Routine); Ordered 01/19/19 Ordered By: Gladys eMnendez Admission Data Admit Date/Time: 01/16/19 21:09 Attending Provider: Gladys Menendez Admit Provider: David Mireles Primary Care Provider: Sulman,Fernando A. Other Providers: David Mireles ; Patrica Iqbal Other Interventions: Discharge Summary Assessment (RN) Last Done: 01/19/19 17:46 DC Date/Time DO NOT enter until pt leaves facility: 01/19/19 17:55
== END 2019-01-19 17:55 | disposition home or self-care (01) ==
LOC: ED 14:15 → 2S 14:15